=== PATIENT | male | born 1935 | race Caucasian/White ===

== ENCOUNTER 2020-02-22 17:59 | Emergency (ER) | payer MEDICARE, SELFPAY ==
[2020-02-22 18:02] VITALS: BP 179/84; PULSE 53; PULSE 65; RESP 17; TEMP 36.5; O2SAT 97; O2SAT 98; BMI 23.2
--- NOTE | 2020-02-22 18:23 | EKG12_ITS ---
Test Reason : DYSRHYTHMIA Blood Pressure : / mmHG Vent. Rate : 071 BPM Atrial Rate : 071 BPM P-R Int : 248 ms QRS Dur : 108 ms QT Int : 408 ms P-R-T Axes : 029 005 047 degrees QTc Int : 443 ms Sinus rhythm with 1st degree A-V block Otherwise normal ECG Confirmed by AZAM HERNANDEZ, ARIEL ([id number]), digital editor RUFINA EMANUEL ([id number]) on 02/27/2020 3:10:51 PM Referred By: STANLEY Confirmed By:REYNA NASCIMENTO MD
[2020-02-22] MEDS: 0.9% Normal Saline 1,000 ML 1000 ML IV (18:36)
--- NOTE | 2020-02-22 18:47 | RAD_ITS ---
STUDY: X-RAY CHEST REASON FOR EXAM: Male, 84 years old. UPPER ABDOMINAL TIGHTNESS TECHNIQUE: Single AP portable view of the chest. COMPARISON: None. FINDINGS: There are monitoring devices. The lungs are clear and expanded. There is no demonstrated pleural abnormality. Normal size heart. There are calcified mediastinal lymph nodes. Normal visualized pulmonary arteries. There is atherosclerotic calcification of the aortic arch with tortuosity. Normal visualized thoracic spine. Normal visualized ribs, clavicles, and shoulders. There is no demonstrated abnormality of the visualized soft tissue structures of the upper abdomen. RAD/Chest 1 View (Portable) IMPRESSION: Degenerative changes, as described above. No demonstrated acute cardiopulmonary process. Electronically Signed: Fabiano Mar MD at 19:34 EDT , Service support ,
[2020-02-22 18:49] LABS: Basophil# 0.06 X10^3/uL; Basophil% 0.8 % (0-1); Eosinophil# 0.07 X10^3/uL; Eosinophils% 0.9 % (0-5); Hemoglobin 13.6 g/dL (13.0-16.5); Lymphocyte % 12.7 % (19-41); Mean Corp Hgb Conc 32.4 g/dL (32-36); Mean Corpuscular Hgb 30.3 pg (27.0-32.0); Mean Corpuscular Volume 93.5 fL (80-94); Mean Platelet Vol. 11.1 fl (6.2-12.0); Monocyte# 0.68 X10^3/uL; Monocyte% 8.7 % (0-10); NRBC Flagged by Analyzer 0 % (0-5); Neutrophil # 6.02 X10^3/uL (2.7-7.7); Neutrophil % 76.5 % (47-70); Platelet Count 211 K/mm3 (150-450); RBC Distribution Width CV 12.8 % (11.6-14.6); RBC Distribution Width SD 43.9 fl (35.1-43.9); Red Blood Count 4.49 M/mm3 (4.6-6.2); White Blood Count 7.9 K/mm3 (4.4-11.0)
[2020-02-22 19:06] LABS: ALB/GLOB Ratio 1.1 RATIO (0.9-2.4); AST(SGOT) 161 U/L (15-37); Alanine Aminotransfer ALT/SGPT 102 U/L (16-61); Albumin, Serum 3.7 g/dL (3.2-5.0); Alkaline Phosphatase 83 U/L (45-117); Anion Gap 6 (5-15); BUN 18 mg/dL (7-18); BUN/Creat Ratio 20.2 RATIO (10-20); Calcium,Total 8.9 mg/dL (8.5-10.1); Chloride 107 mmol/L (98-107); Creatinine, Serum 0.89 mg/dL (0.70-1.30); EST Glomerular Filtration Rate 86 mL/min (>60); Est Glom Filt Rate - Afr Amer 104 mL/min (>60); Estimated Creatinine Clearance 61.79 ml/min; Globulin 3.4 g/dL (2.2-4.2); Glucose 167 mg/dL (74-106); Lipase 50 U/L (73-393); Potassium 3.8 mmol/L (3.5-5.1); Protein, Total 7.1 g/dL (6.4-8.2); Sodium Level 141 mmol/L (136-145)
--- NOTE | 2020-02-22 19:11 | ED.DCSUM_ITS ---
- ER Visit Summary Date of Service: 02/22/20 Chief Complaint: Abdominal pain and chest pain History of Present Illness: The patient is a 84 M who presents with lower chest and upper abdominal pain that began today. Patient states it began approximately 4:00 PM and then lasted approximately 30 to 60 minutes. Patient states he ate dinner at 5:00 PM. Patient states the pain came on after that. Patient states it feels like a tightness around his lower chest and upper abdomen. Patient admits to nausea but denies any vomiting. Patient denies any diarrhea, melena, or hematochezia. Patient denies any shortness of breath or cough. Patient denies any diaphoresis, fevers, or chills. Physical Examination: Vital signs are stable. Patient is afebrile. Patient is in no acute distress. Oral mucosa is pink and moist. Neck is supple. Trachea is midline. There is no JVD. Heart was regular rate and rhythm. Lungs are clear and equal bilaterally. Abdomen is soft. Bowel sounds are normal. There is mild upper abdominal tenderness. There is no rebound or guarding noted. 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 There are no focal motor or sensory deficits. Extremities are intact. There is no calf tenderness or edema. Test Results: EKG shows sinus rhythm with a rate of 71 with a first-degree AV block. There are no acute ST or T wave changes. Chest x-ray does not show any acute cardiopulmonary process. This was interpreted by the radiologist and reviewed by myself. CBC was normal. Comprehensive metabolic profile was normal except for slightly elevated AST of 161 and ALT of 102. Lipase was normal. Troponin was normal. Emergency Department Course and Treatment: Patient has been pain-free during his entire emergency department stay. Since the symptoms began approximately 2 hours prior to arrival, a delta troponin was obtained. Patient has a HEART score of 3. Patient has a ALISHA risk score of 1. Disposition: Care of the patient was turned over to the oncoming physician pending delta troponin results. If the delta troponin is negative., The patient will be discharged home. If the delta troponin is positive patient will be admitted. Impression: 1. Upper abdominal pain This note was generated with [employer] software. It may contain incorrect words, spelling, and punctuation that were not noted in review of the chart prior to signing ED Disposition - Plan for ED Patient: Disposition: Home or Assisted Living Diagnosis: Upper abdominal pain of unknown etiology Instructions: ED Unknown Causes of Abdominal Pain Male, ED Chest Pain Atypical Unkn Cause Referrals: Amrik Jacob MD [Primary Care Provider] - 3-5 Days
[2020-02-22 20:32] VITALS: BP 161/78; PULSE 61; RESP 16; O2SAT 96
[2020-02-22 22:38] VITALS: BP 162/78
== END 2020-02-22 22:46 | disposition home or self-care (01) ==
PROVIDERS: Emergency Provider Emergency Medicine; PCP Family Medicine
DX: R10.10 Upper abdominal pain, unspecified (principal); R07.9 Chest pain, unspecified; I10 Essential (primary) hypertension
CPT/HCPCS: 71045; 80053; 83690; 84484; 85025; 93005; 99284; A4216

== ENCOUNTER 2020-10-02 17:44 | Inpatient (IN) | payer MEDICARE, SELFPAY ==
[2020-10-02] VITALS (27 sets, daily range): BP systolic 112–180; BP diastolic 53–94; PULSE 50–69; RESP 11–17; TEMP 36.1–36.8; O2SAT 93–100; BMI 22.0; BMI 22.6
--- NOTE | 2020-10-02 17:45 | CT_ITS ---
STUDY: CT BRAIN WITHOUT CONTRAST REASON FOR EXAM: Male, 85 years old. cva RADIATION DOSAGE (If Supplied By Facility): CTDIvol = ( 44.99 ) mGy, DLP = ( 829.85 ) mGycm TECHNIQUE: Transaxial CT imaging of the brain was performed without administration of intravenous contrast material. Individualized dose optimization techniques were used for this CT. COMPARISON: None. FINDINGS: Normal soft tissue structures. Normal calvarium. There is mild cerebral atrophy with widening of the extra-axial spaces and ventricular dilatation. Tiny perivascular space noted in the right frontal lobe/periventricular junction. Normal white matter tracts of the cerebral hemispheres. Normal basal ganglia and thalami. Normal brainstem. Normal cerebellum. There is no intracranial hemorrhage. There are no findings of an acute ischemic infarction. Normal visualized paranasal sinuses. CT/STROKE Brain/Head without Cont IMPRESSION: Chronic involutional changes of the brain. N.B. : The above information has been verbally conveyed by Osiel Feliz MD to FRANCOISE VELIZ MD, on 10/02/2020 18:09:25 (ET). Electronically Signed: Osiel Feliz MD at 18:10 EST , Service support ,
--- NOTE | 2020-10-02 17:47 | CM.ED ---
Social Work Responding to stroke alert. Support provided to spouse. Will continue to follow as needed. Cj JENSEN, VALENTINA
--- NOTE | 2020-10-02 17:48 | CT_ITS ---
STUDY: CTA HEAD AND NECK WITH CONTRAST REASON FOR EXAM: Male, 85 years old. CVA, left sided weakness. RADIATION DOSAGE (If Supplied By Facility): CTDIvol = ( 23.37 ) mGy, DLP = ( 721.75 ) mGycm TECHNIQUE: CT angiography was performed with a multi-detector CT scanner. Data acquisition was obtained from the skull base through the vertex following intravenous administration of IV 100mL [id number]-[id number]. MIP images were reconstructed from the axial data set. Post-processing of the angiographic images was performed, with multiplanar reformation and 3D reconstruction. Individualized dose optimization techniques were used for this CT. COMPARISON: Noncontrast head CT dated October 02, 2020 FINDINGS: Normal bilateral petrous carotid arteries. There is calcified plaque formation of the right cavernous carotid artery, without a cross-sectional luminal stenosis. There is calcified plaque formation of the left cavernous carotid artery, without a cross-sectional luminal stenosis. Normal right A1 segments of the anterior cerebral artery. Normal left A1 segments of the anterior cerebral artery. Normal intact anterior communicating artery (ACOM). Normal bilateral A2 segments of the anterior cerebral arteries. Normal right M1 and M2 segments of the middle cerebral arteries, with a normal M1 bifurcation. Normal left M1 and M2 segments of the middle cerebral arteries, with a normal M1 bifurcation. Normal right posterior communicating artery (PCOM). Normal left posterior communicating artery (PCOM). Normal bilateral vertebral arteries. Normal basilar artery with a normal basilar bifurcation. The visualized bilateral superior cerebellar (SCA) arteries are normal. Normal bilateral P1, P2 and visualized P3 segments of the posterior cerebral arteries. There is no demonstrated aneurysm of the [place]. There is no demonstrated abnormality of the visualized brain. AORTIC ARCH: There is atherosclerotic calcific plaque formation of the aortic arch and great vessels arising from the aortic arch, without a hemodynamically significant stenosis. There is a normal origin of the brachiocephalic, left common carotid, and left subclavian arteries. Normal origins of the brachiocephalic, left common carotid, and left subclavian arteries. RIGHT CAROTID ARTERIES: Normal right common carotid artery (CCA). There is mild atherosclerotic plaque formation with minimal narrowing of the right carotid bulb. Normal origin of the right internal carotid (ICA) artery without a hemodynamically significant stenosis. Normal visualized cervical portion of the right internal carotid artery. Normal origin of the right external carotid artery (ECA). LEFT CAROTID ARTERIES: Normal left common carotid artery (CCA). There is mild atherosclerotic plaque formation with minimal narrowing of the left carotid bulb. There is mild atherosclerotic plaque formation of the origin of the left internal carotid artery with less than 25 % cross sectional diameter stenosis. Normal visualized cervical portion of the left internal carotid artery. Normal origin of the left external carotid artery (ECA). VERTEBRAL ARTERIES: Normal bilateral vertebral arteries. CT/STROKE CTA Head AND Neck W/Con IMPRESSION: 1. Minimal atherosclerotic plaque of the bilateral cavernous ICAs 2. No hemodynamically significant stenosis or occlusion of the intracranial major arteries 3. Mild atherosclerotic plaque of the carotid bulbs and left ICA, but no hemodynamically significant stenosis or occlusion of the neck carotid arteries. N.B. : The above information has been verbally conveyed by Osiel Feliz MD to FRANCOISE VELIZ MD, on 10/02/2020 18:24:54 (ET). Electronically Signed: Osiel Feliz MD at 18:25 EST , Service support ,
[2020-10-02] MEDS: Labetalol (Prefilled) 20 MG/4 ML IV (18:05)
--- NOTE | 2020-10-02 18:20 | ED.VIS.GEN ---
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 His last known well was 3:00 PM. This was prior to taking a nap. His went to wake him up and she noticed that he was not making much sense with talking. He was not moving his left arm or leg very well. Prehospital stroke alert was called when EMS arrived. He has no history of strokes or TIAs. No history of A. fib. Is not on any anticoagulation. Upon arrival patient rest with his eyes closed and does arouse to some minimal stimuli. He does have difficulty moving his left arm and has decreased sensation of it. He does seem to be more focused on the right side with his posture, head and eyes. He does have a facial droop on the left side. Patient is normally alert, oriented and very independent. Of note patient did have 2 injections into his back with cortisone shots yesterday. Past Medical History - Allergies and Home Meds Allergies/Adverse Reactions: Allergies lactic acid [From Lac-Hydrin] Allergy (Verified 10/02/20 17:52) Rash PT UNSURE OF REACTION Penicillins Allergy (Verified 10/02/20 17:52) Unknown Prior records reviewed: Yes Smoking Status: Former smoker - Family History Maternal Family History: Reports: No pertinent history Paternal Family History: Reports: No pertinent history Review of Systems All systems negative except as indicated General: Denies: Chills, Fever Eyes: Denies: Visual changes - bilaterally, Diplopia Cardiovascular: Denies: Chest pain Respiratory: Denies: Dyspnea, Cough Gastrointestinal: Denies: Abdominal pain, Nausea, Vomiting Musculoskeletal: Denies: Neck pain, Extremity Pain Neurological: Reports: Weakness, Numbness. Denies: Headache Physical Exam Vital Signs/Narrative: Vital Signs Temp Pulse Resp BP Pulse Ox 10/02/20 18:12 172/91 H 10/02/20 17:58 97 F L 64 14 180/94 H 94 10/02/20 17:57 99 10/02/20 17:48 69 17 172/91 H 94 Inital Vital Signs reviewed: Yes General: Well nourished, Well developed, No Acute Distress Head: Normocephalic, Atraumatic Eyes: Perrl, EOMI, - - Eyes seem deviated to the right can overcome this. Denies any visual loss. Good peripheral field of gaze. ENT: Moist mucous membranes, No rhinorrhea Neck: Supple, Nontender Cardiovascular: Regular rate, Regular rhythm, No murmurs Respiratory: No distress, CTA bilaterally, Chest nontender Abdomen: Soft, Nontender, Nondistended, Normal bowel sounds Back: Nontender, Normal Inspection Extremities: Nontender, No edema Skin: Normal color, No rash Neurological: Alert, Oriented x3, Left side facial droop, - - Initial NIH score of 8 as he cannot feel me touch his left arm. He is able to partially move the left arm. Does have a left sided facial droop. He does have dysarthria. He also arouses to minor stimulation. Psychological: Normal affect, Normal Mood Diagnostic/Tx/Re-eval Chest X-Ray - ED: - - Single view portable chest x-ray interpreted myself. Clear lung bustamante bilaterally. No effusion noted. Normal cardiac silhouette. Normal mediastinum. No acute cardiopulmonary process. Agree with radiologist interpretation. - EKG Initial EKG Interpretation: - - Rate of 60 bpm and normal sinus rhythm. He has a prolonged OR interval of 254 with first-degree AV block. Otherwise normal intervals. Normal axis. No ST elevations or depressions. No T wave abnormalities. - Medical Decision Making Patient presents to the ED for prehospital stroke alert. He has a NIH score of [address] scans obtained which did not reveal an acute abnormality. No large vessel occlusion. No signs of hemorrhage. [facility] teleneurology did be meant and evaluate the patient as well. We are both in agreement that he is a TPA candidate. Did have some high blood pressure and did require dose of labetalol to make him a candidate for the TPA. Risks associated giving TPA were discussed with the patient and . They understand and accept these risk. This was then given. Patient CT scan did not show any evidence of large vessel occlusion. His NIH score has actually improved after receiving the TPA. His got down to an NIH score of 2. His lab work did not reveal a significant acute abnormality. Will bring him into the hospital for further evaluation and management. Patient's at bedside updated on everything as well as the patient. They are agreeable with this plan. - Critical Care Time Critical care time (excluding procedures): 30-74 minutes, Discussing w/Patient &/or Family/Lsw, Discussing w/Consultants, Arranging Admission or Transfer, Performing Direct Patient Care at Bedside ED Disposition - Plan for ED Patient: Disposition: Acute Care Hospital [facility] Diagnosis: Acute ischemic stroke, Dysarthria, Facial droop, Left arm weakness
[2020-10-02 18:24] LABS: Absolute Lymphocyte Count 1.38 X10^3/uL (0.83-4.51); Absolute Neutrophil Count 8.2 X10^3/uL (2.0-7.7); Basophil# 0.04 X10^3/uL; Basophil% 0.4 % (0-1); Eosinophil# 0.02 X10^3/uL; Eosinophils% 0.2 % (0-5); Hematocrit 37.9 % (40-54); Hemoglobin 12.7 g/dL (13.0-16.5); Lymphocyte # 1.38 X10^3/ul (4.0); Mean Corp Hgb Conc 33.5 g/dL (32-36); Mean Corpuscular Hgb 30.7 pg (27.0-32.0); Mean Corpuscular Volume 91.5 fL (80-94); Mean Platelet Vol. 10.6 fl (6.2-12.0); Monocyte# 0.89 X10^3/uL; Monocyte% 8.4 % (0-10); NRBC Flagged by Analyzer 0 % (0-5); Neutrophil # 8.22 X10^3/uL (2.7-7.7); Neutrophil % 77.6 % (47-70); Platelet Count 223 K/mm3 (150-450); RBC Distribution Width CV 12.6 % (11.6-14.6); RBC Distribution Width SD 41.6 fl (35.1-43.9); Red Blood Count 4.14 M/mm3 (4.6-6.2); White Blood Count 10.6 K/mm3 (4.4-11.0)
[2020-10-02 18:31] LABS: International Normalized Ratio 1.1; Prothrombin Time (Protime)PT. 13.7 SECONDS (11.7-14.9)
[2020-10-02 18:32] LABS: Partial Thromboplast Time 27.4 Seconds (24.1-36.2)
[2020-10-02 18:42] LABS: Anion Gap 3 (5-15); BUN 19 mg/dL (7-18); BUN/Creat Ratio 24.9 RATIO (10-20); Calcium,Total 8.1 mg/dL (8.5-10.1); Chloride 102 mmol/L (98-107); Creatinine, Serum 0.76 mg/dL (0.70-1.30); EST Glomerular Filtration Rate 103 mL/min (>60); Est Glom Filt Rate - Afr Amer 125 mL/min (>60); Glucose 128 mg/dL (74-106); Potassium 4.2 mmol/L (3.5-5.1); Sodium Level 134 mmol/L (136-145)
[2020-10-02] MEDS: 0.9% Normal Saline 1,000 ML 100 ML IV (18:48)
--- NOTE | 2020-10-02 18:56 | RAD_ITS ---
STUDY: X-RAY CHEST REASON FOR EXAM: Male, 85 years old. NEURO DEFICIT, ACUTE. SUSPECTED STROKE TECHNIQUE: Frontal view COMPARISON: 02/22/2020 FINDINGS: The lungs are clear and expanded. There is no demonstrated pleural abnormality. Normal size heart. Normal mediastinum and candelaria. Normal visualized pulmonary arteries. Normal visualized aortic arch and descending thoracic aorta. Normal visualized thoracic spine. Normal visualized ribs, clavicles, and shoulders. There is no demonstrated abnormality of the visualized soft tissue structures of the upper abdomen. RAD/Chest 1 View IMPRESSION: Normal x-ray examination of the chest. Electronically Signed: Dom Davies DO at 19:54 EST Tel [phone], Service support ,
--- NOTE | 2020-10-02 19:44 | PCS.PANDOC ---
PANDEMIC DOCUMENTATION INITIATED: Date: 10/02/2020 Time: 1950
--- NOTE | 2020-10-02 19:47 | HP.PCM_ITS ---
Problem List (1) Acute ischemic stroke Status: Acute (2) Chronic back pain Status: Chronic (3) Hypertension Status: Chronic History of Present Illness Date of Admission: 10/02/20 Chief Complaint: Strokelike symptoms. The patient is a 85 year old M with past medical history as mentioned above presented to the emergency room because of left leg and arm weakness, garbled speech and facial droop. At this time, patient is sleepy and lethargic as he received IV Phenergan before TPA. Patient's was at the bedside and she provides the history. Patient's stated that he was sleeping and around 3 PM, she went to wake him up and she noted that his speech is not making sense and having difficulty moving his left arm and left leg. She reported that also he had facial droop on the left side of his face. Upon arrival to the emergency department, patient's eyes was closed and he was lethargic but arousable to minimal stimuli. mentioned that he received cortisone injections in his back yesterday for chronic back pain. He had a history of hypertension which has been under control with lisinopril. He has a chronic back pain issues and he has been receiving treatment with his doctor. Upon arrival to ED, NIH stroke scale was 8. He was afebrile, blood pressure was elevated, other vital signs were stable. Routine blood work was unremarkable. Pro time and INR were normal. EKG revealed normal sinus rhythm with first-degree AV block, MN interval was 254 ms, no acute ischemic changes. Troponin was negative. Stat CT scan brain without contrast done and showed no acute hemorrhage. [facility] teleneurology consulted and recommended to give TPA. tPA was given and his NIH stroke scale improved. CTA of the neck showed no hemodynamically significant v ascular disease or stenosis. Chest x-ray showed no acute findings. He is being admitted for acute stroke status post TPA. Past Medical History Past Medical History (Chronic Problems): Chronic Problems Chronic back pain (Chronic) Hypertension (Chronic) Allergies lactic acid [From Lac-Hydrin] Allergy (Verified 10/02/20 17:52) Rash PT UNSURE OF REACTION Penicillins Allergy (Verified 10/02/20 17:52) Unknown Home Medications: Ambulatory Orders Medication Instructions Recorded Alfuzosin HCl [Uroxatral] 10 mg PO DAILY 10/02/20 Cholecalciferol (Vitamin D3) 50 mcg PO DAILY 10/02/20 [Vitamin D3] Cyclobenzaprine HCl 10 mg PO BID 10/02/20 Diphenhydramine HCl [Allergy] 25 mg PO DAILY PRN PRN 10/02/20 Dutasteride 0.5 mg PO DAILY 10/02/20 Lisinopril [Zestril] 10 mg PO DAILY 10/02/20 Magnesium 500 mg PO DAILY 10/02/20 Meloxicam 15 mg PO DAILY 10/02/20 Multivitamin/Iron/Folic Acid 1 ea PO DAILY 10/02/20 [Centrum Adults Tablet] Surgical History: - - Right shoulder repair. Back surgery. Psychiatric History: No pertinent psych hx Lives: Spouse/ Significant Other Smoking Status: Former smoker Alcohol: None Drugs: None - *Family History Maternal History Items: No pertinent history Paternal History Items: No pertinent history Review of Systems Constitutional: Denies: Anorexia, Chills, Fever, Weakness Eyes: Denies: Blurred vision, Double vision, Drainage, Redness HEENT: Denies: Difficulty Hearing, Ear Pain, Eye Pain, Nasal Congestion, Sore Throat Cardiovascular: Denies: Chest Pain, Chest Pressure, Heaviness, Palpitations, Syncope Respiratory: Denies: Cough, Pleuritic Pain, Shortness of Breath, Sputum production, Wheezing Gastrointestinal: Denies: Abdominal Pain, Constipation, Diarrhea, Nausea, Vomiting Genitourinary: Denies: Dysuria, Frequency, Hematuria Musculoskeletal: Denies: Arm Pain, Foot Pain Skin: Denies: Dryness, Rash Neurological: Reports: Change in Speech, Slurred speech, Focal weakness. Denies: Balance problems, Blurred vision, Double vision, Headaches, Numbness Psychiatric: Denies: Anxiety, Depression Endocrine: Denies: Change in Body Habitus, Polydipsia, Polyuria VTE Information - Inpt Only VTE Present on Admission: No VTE Mechan Device Prophylaxis: None VTE Pharm Prophylaxis ordered?: No Patient Problems: Active and Suspected Problems Acute ischemic stroke (Acute) - Physical Exam Vitals/I&O's: Vital Signs Temp Pulse Resp BP Pulse Ox 98.3 F 61 11 L 153/71 H 94 10/02/20 19:34 10/02/20 19:34 10/02/20 19:34 10/02/20 19:34 10/02/20 19:34 Oxygen Delivery Method Room Air Weight: 162 lb 7.691 oz Body Mass Index (BMI) 22.0 Finger Stick Blood Glucose 114 Intake and Output for Last 24 Hours 09/30/20 10/01/20 10/02/20 23:59 23:59 23:59 Intake Total 59.5 / 59.5 Balance 59.5 / 59.5 General: Alert, Cooperative, No apparent distress, - - Sleepy but arousable with minimal stimuli. HEENT: Atraumatic, PERRLA, EOMI, Normocephalic Oral: Moist Mucosa, No Gingival or Mucosal Lesions/ Ulcerations Neck: Supple, No JVD, Negative Carotid Bruits, Trachea Midline, Thyroid Normal Size and Texture Lungs: Clear to auscultation, Normal air movement, No rhonchi, No wheeze, No rales, Diminished Cardiovascular: Regular rate, Regular Rhythm, Normal S1, Normal S2, No murmurs, PMI Normal Abdomen: Bowel Sounds Present, Soft, Non Tender, Non-Distended, No Hepato- splenomegaly Extremities: No clubbing, No cyanosis, No edema Skin: No rashes, No breakdown Lymphatic: No Cervical, Supraclavicular, or Inguinal Adenopathy Neurological: - - Minimal left facial droop. Power is almost 5 x 5 on the left side, it is 5 x 5 on the right side. Psych/Mental Status: Appropriate, Flat Affect Microbiology Past 72 Hours 10/02/20 18:20 Mucosa - Nose SARS-CoV-2 Antigen (Rapid) - Final Laboratory Results 10/02/20 18:00: WBC 10.6, RBC 4.14 L, Hgb 12.7 L, Hct 37.9 L, MCV 91.5, MCH 30.7, MCHC 33.5, RDW Std Deviation 41.6, RDW Coeff of Rodney 12.6, Plt Count 223, MPV 10.6, Immature Gran % (Auto) 0.400, Neut % (Auto) 77.6 H, Lymph % (Auto) 13.0 L, Stafford % (Auto) 8.4, Eos % (Auto) 0.2, Baso % (Auto) 0.4, Absolute Neuts (auto) 8.2 H, Absolute Lymphs (auto) 1.38, Nucleated RBC % 0 10/02/20 18:00: PT 13.7, INR 1.1, APTT 27.4 10/02/20 18:00: Sodium 134 L, Potassium 4.2, Chloride 102, Carbon Dioxide 29.0, Anion Gap 3 L, BUN 19 H, Creatinine 0.76, Estim Creat Clear Calc 56.30, Est GFR (MDRD) Af Amer 125, Est GFR (MDRD) Non-Af 103, BUN/Creatinine Ratio 24.9 H, Glucose 128 H, Calcium 8.1 L, Troponin I < 0.015 Clinical Impression(s) from Imaging Studies Brain CT 10/02/20 17:45 IMPRESSION: Chronic involutional changes of the brain. N.B. : The above information has been verbally conveyed by Osiel Feliz MD to FRANCOISE VELIZ MD, on 10/02/2020 18:09:25 (ET). Electronically Signed: Osiel Feliz MD at 18:10 EST , Service support , ADDENDUM: 10/02/20 1817 IMPRESSION: Chronic involutional changes of the brain. N.B. : The above information has been verbally conveyed by Osiel Feliz MD to FRANCOISE VELIZ MD, on 10/02/2020 18:09:25 (ET). Electronically Signed: Osiel Feliz MD at 18:10 EST , Service support , Head/Neck CTA 10/02/20 17:48 IMPRESSION: 1. Minimal atherosclerotic plaque of the bilateral cavernous ICAs 2. No hemodynamically significant stenosis or occlusion of the intracranial major arteries 3. Mild atherosclerotic plaque of the carotid bulbs and left ICA, but no hemodynamically significant stenosis or occlusion of the neck carotid arteries. N.B. : The above information has been verbally conveyed by Osiel Feliz MD to FRANCOISE VELIZ MD, on 10/02/2020 18:24:54 (ET). Electronically Signed: Osiel Feliz MD at 18:25 EST , Service support , ADDENDUM: 10/02/20 1832 IMPRESSION: 1. Minimal atherosclerotic plaque of the bilateral cavernous ICAs 2. No hemodynamically significant stenosis or occlusion of the intracranial major arteries 3. Mild atherosclerotic plaque of the carotid bulbs and left ICA, but no hemodynamically significant stenosis or occlusion of the neck carotid arteries. N.B. : The above information has been verbally conveyed by Osiel Feliz MD to FRANCOISE VELIZ MD, on 10/02/2020 18:24:54 (ET). Electronically Signed: Osiel Feliz MD at 18:25 EST , Service support , Current Medications Acetaminophen (Acetaminophen 325 Mg Tablet) 650 mg PO .X1 PRN PRN Reason: Temp > 99.6 F Diphenhydramine HCl (Diphenhydramine 50 Mg/Ml Syringe) 50 mg IV .X1 PRN PRN Reason: Allergic Reaction Stop: 10/04/20 17:56 Sodium Chloride () 1,000 mls @ 100 mls/hr IV .Q10H DANNA Last Admin: 10/02/20 18:48 Dose: 100 mls/hr Documented by: Famotidine 20 mg/ Sodium (Chloride) 10 mls @ 300 mls/hr IV .X1 PRN PRN Reason: Allergic Reaction Stop: 10/04/20 17:56 Nicardipine/Dextrose (Cardene-Dex 20 Mg/200 Ml Soln) 20 mg in 200 mls @ 50 mls/hr IV .Q4H PRN; Protocol PRN Reason: See Instructions Labetalol HCl (Labetalol (Prefilled) 20 Mg/4 Ml) 20 mg IV X1 PRN PRN Reason: BLOOD PRESSURE Last Admin: 10/02/20 18:05 Dose: 20 mg Documented by: Labetalol HCl (Labetalol (Prefilled) 20 Mg/4 Ml) 20 mg IV X1 PRN; Protocol PRN Reason: BLOOD PRESSURE Methylprednisolone (Methylprednisolone 125 Mg/2 Ml Vial) 125 mg IV .X1 PRN PRN Reason: Allergic Reaction Stop: 10/04/20 17:56 Sodium Chloride (0.9% Saline Lock 10 Ml Syringe) 10 - 40 ml IV UD PRN PRN Reason: SALINE FLUSH Assessment/Plan All Active Problems Acute ischemic stroke (Acute) This is an 85 years old male patient presented to the emergency room because of slurred speech, left arm and left leg weakness as well as left facial droop, found to have NIH stroke scale of 8, stat CT scan brain showed no acute hemorrhage and he was a candidate for TPA which he received and he is being admitted for acute ischemic stroke for evaluation and treatment. #1 acute stroke: Probably ischemic, status post TPA. Initially, blood pressure was elevated, patient received labetalol and nicardipine. CT scan brain showed no acute findings. CTA of the head and neck showed no significant vascular stenosis or occlusion. EKG reviewed, showed normal sinus rhythm with first- degree AV block. Chest x-ray was unremarkable. Plan: Admit to ICU, critical care monitoring, complete bedrest, insert Thibodeaux catheter, check lipid profile, hemoglobin A1c, TPA protocol, start Lipitor, 2D echocardiogram, critical care consult, repeat CBC and CMP tomorrow morning as well as pro time and INR, MRI brain 24 hours after TPA, plan to reconsult [facility] teleneurology after results of MRI brain, PT OT evaluation and treatment when appropriate. #2 hypertension: Initially, blood pressure was elevated, received labetalol and nicardipine. Currently blood pressure is around 150s to 160s systolic. Target blood pressure per protocol, continue lisinopril. #3 chronic back pain: Tylenol as needed. #4 DVT prophylaxis: Status post TPA. This note was generated with [employer] dictation software. It may contain incorrect words, spelling, and punctuation that were not noted in checking the note before signing. Inpatient E&M: 88823 Init Hosp L3
--- NOTE | 2020-10-02 19:51 | ED.RN ---
report called to Maeve in ICU. All questions answered.
--- NOTE | 2020-10-02 20:36 | MRI_ITS ---
STUDY: MRI BRAIN WITHOUT CONTRAST REASON FOR EXAM: Male, 85 years old. 24 HRS POST TPA, L SIDE FLACCID TECHNIQUE: Standardized multiplanar fat and water weighted pulse sequences were obtained. COMPARISON: Head CT and CTA dated October 02, 2020. Head CT dated October 03, 2020. FINDINGS: A small to moderate size acute infarct is present in the anterior half of the right thalamic lobe. There is also acute infarction of the medial aspect of the right occipital lobe and temporal lobes. There is mild cerebral atrophy with widening of the extra-axial spaces and ventricular dilatation. There are a limited number of small white matter hyperintensities, distributed throughout the deep white matter tracts of the cerebral hemispheres, consistent with mild chronic white matter ischemic changes. Normal T2* images of the brain without demonstrated susceptibility artifact. There is no demonstrated hemosiderin stain. Normal bilateral basal ganglia. Normal thalami. There is no extra-axial fluid accumulation. Normal flow voids within the major intracranial circulation suggesting patency by spin echo criteria. Normal sella turcica, pituitary gland, infundibular stalk, optic chiasm and hypothalamus. Normal tectal plate and pineal gland. Normal midbrain, brian and medulla. Normal cerebellum. Normal basal cisterns. Normal bilateral temporal bones. Normal bilateral internal auditory canals. No demonstrated orbital abnormality, within the constraints of a routine brain study. Normal visualized paranasal sinuses. Normal calvarium and skull base. Normal visualized soft tissue structures. Normal visualized upper cervical spine. MRI/Brain without Contrast IMPRESSION: 1. Acute infarcts in the medial aspects of the right temporal and occipital lobes 2. Small to moderate size acute infarct of the right thalamic lobe. Electronically Signed: Osiel Feliz MD at 22:09 EST , Service support ,
--- NOTE | 2020-10-02 20:36 | ECHOD_ITS ---
Reason For Study: TIA/CVA Procedure This was a 2D Doppler, Color Flow transthoracic echocardiogram. The exam was of adequate technical quality. Exam performed portable in ICU/CCU. Left Ventricle Normal LV size. Left ventricular systolic function is normal. The estimated ejection fraction is 55 %. Diastolic function is indeterminate. No regional wall motion abnormalities noted. Right Ventricle Normal RV size. Normal systolic function. Atria Normal left atrium. Normal right atrium. No doppler evidence for ASD. Bubble contrast study negative for right to left interatrial shunt. Mitral Valve There is moderate mitral annular calcification. Extension of the mitral annular calcification onto the base of the posterior mitral valve leaflet. Trivial mitral valve insufficiency. Tricuspid Valve Normal tricuspid valve. Mild tricuspid valve insufficiency. Right ventricular systolic pressure estimated to be 22 mmHg. Aortic Valve Trisinus/trileaflet aortic valve. Mild diffuse aortic valve thickening. Mild focal aortic valve calcification. Trivial aortic valve insufficiency. Pulmonic Valve The pulmonic valve is not well visualized. Trivial pulmonic valve insufficiency. Great Vessels Normal sized aortic root. Pericardium/Pleural No pericardial effusion. Medication Performed a rapid injection of agitated mix of 9 cc saline and 1cc air to assess for atrial septal defect. MMode/2D Measurements & Calculations LVIDd: 4.7 cm IVSd: 0.96 cm Ao root diam: 3.3 cm LVIDs: 3.7 cm LVPWd: 0.94 cm RVDd: 4.1 cm FS: 22.3 % LAV(MOD-bp): 47.9 ml LVAd ap4: 29.2 cm2 SV(MOD-sp4): 46.4 ml LAV(MOD-bp) Indexed: 25.3 ml/m2 EDV(MOD-sp4): 91.2 ml LAV(MOD-sp2): 56.0 ml EDV(sp4-el): 92.9 ml LAV(MOD-sp4): 33.5 ml LVAs ap4: 18.7 cm2 ESV(MOD-sp4): 44.7 ml ESV(sp4-el): 45.4 ml EF(MOD-sp4): 50.9 % EF(sp4-el): 51.1 % SV(sp4-el): 47.5 ml LA A4 area: 13.6 cm2 LA dimension(2D): 3.4 cm RA A4 area: 16.4 cm2 Doppler Measurements & Calculations MV E max russ: 76.4 cm/sec Lat Peak E' Russ: 7.6 cm/sec Med Peak E' Russ: 5.4 cm/sec MV A max russ: 90.4 cm/sec E/E' lat: 10.1 E/E' med: 14.1 MV E/A: 0.85 Ao V2 max: 121.0 cm/sec LV V1 max: 88.7 cm/sec PA V2 max: 61.5 cm/sec Ao max P.9 mmHg LV V1 max P.1 mmHg Ao V2 mean: 86.8 cm/sec Ao mean P.2 mmHg Ao V2 VTI: 28.9 cm TR max russ: 220.0 cm/sec TR max P.4 mmHg Interpretation Summary Left ventricular systolic function is normal. The estimated ejection fraction is 55 %. There is moderate mitral annular calcification. Extension of the mitral annular calcification onto the base of the posterior mitral valve leaflet. Trivial mitral valve insufficiency. Mild tricuspid valve insufficiency. Mild diffuse aortic valve thickening. Mild focal aortic valve calcification. Trivial aortic valve insufficiency. Trivial pulmonic valve insufficiency. Right ventricular systolic pressure estimated to be 22 mmHg. Diastolic function is indeterminate. Bubble contrast study negative for right to left interatrial shunt. Ordering Physician: Law Galdamez Referring Physician: Amrik Jacob Performed By: Petra Mathews RDCS, RVT
[2020-10-02 21:03] LABS: Cholesterol 158 mg/dL (200); High Density Lipoprotein 44 mg/dL; Triglycerides 81 mg/dL; Very Low Density Lipoprotein 16 mg/dL (5-40)
[2020-10-02 21:09] LABS: Hemoglobin A1c 6.6 % (3.8-5.6)
[2020-10-02] MEDS: 0.9% Normal Saline 1,000 ML 75 ML IV (22:17)
[2020-10-03] VITALS (27 sets, daily range): BP systolic 100–146; BP diastolic 49–100; PULSE 38–61; RESP 9–24; TEMP 36.6–37.4; O2SAT 92–98; BMI 22.6
[2020-10-03 04:19] LABS: Absolute Lymphocyte Count 1.24 X10^3/uL (0.83-4.51); Absolute Neutrophil Count 8.2 X10^3/uL (2.0-7.7); Basophil# 0.04 X10^3/uL; Basophil% 0.4 % (0-1); Eosinophil# 0.01 X10^3/uL; Eosinophils% 0.1 % (0-5); Hematocrit 37.3 % (40-54); Hemoglobin 12.3 g/dL (13.0-16.5); Lymphocyte # 1.24 X10^3/ul (4.0); Lymphocyte % 12.1 % (19-41); Mean Corpuscular Hgb 30.7 pg (27.0-32.0); Mean Platelet Vol. 10.7 fl (6.2-12.0); Monocyte# 0.75 X10^3/uL; Monocyte% 7.3 % (0-10); NRBC Flagged by Analyzer 0 % (0-5); Neutrophil % 79.7 % (47-70); Platelet Count 207 K/mm3 (150-450); RBC Distribution Width CV 12.8 % (11.6-14.6); Red Blood Count 4.01 M/mm3 (4.6-6.2); White Blood Count 10.3 K/mm3 (4.4-11.0)
[2020-10-03 04:36] LABS: Anion Gap 5 (5-15); BUN 16 mg/dL (7-18); BUN/Creat Ratio 20.7 RATIO (10-20); Calcium,Total 8.2 mg/dL (8.5-10.1); Chloride 109 mmol/L (98-107); Creatinine, Serum 0.77 mg/dL (0.70-1.30); EST Glomerular Filtration Rate 102 mL/min (>60); Est Glom Filt Rate - Afr Amer 123 mL/min (>60); Estimated Creatinine Clearance 53.17 ml/min; Glucose 115 mg/dL (74-106); Phosphorus 4.2 mg/dL (2.5-4.9); Potassium 4.3 mmol/L (3.5-5.1); Sodium Level 141 mmol/L (136-145)
--- NOTE | 2020-10-03 06:35 | PCM.CON.CC ---
Reason for Consult Date of Consultation: 10/03/20 Reason for Consultation: Acute CVA status post TPA History of Present Illness: The patient is an 85-year-old male, with a history as outlined below, who presented to the emergency department on October 02 with complaints of left-sided weakness and slurred speech. The patient has no prior history of CVA. He does have a history of hypertension, treated with lisinopril on an outpatient basis. On presentation to the emergency department, the patient was noted to be afebrile but was hypertensive with a blood pressure of 180/94 mmHg. He was maintaining appropriate oxygen saturations on room air. Laboratory evaluation revealed no evidence of a leukocytosis. Coagulation profile was within normal limits. Chemistry profile was largely unremarkable. Troponin was negative. CT head revealed chronic involutional changes of the brain. CTA head and neck showed no evidence of a large vessel occlusion. Consultation was obtained from neurology and TPA was administered at 1812 hrs. the patient was subsequently admitted to the medical intensive care unit for further management. NIH score was noted to be 4 this morning. Past Medical History Past Medical History (Chronic Problems): Chronic Problems Chronic back pain (Chronic) Hypertension (Chronic) Allergies lactic acid [From Lac-Hydrin] Allergy (Verified 10/02/20 17:52) Rash PT UNSURE OF REACTION Penicillins Allergy (Verified 10/02/20 17:52) Unknown Home Medications: Ambulatory Orders Medication Instructions Recorded Alfuzosin HCl [Uroxatral] 10 mg PO DAILY 10/02/20 Cholecalciferol (Vitamin D3) 50 mcg PO DAILY 10/02/20 [Vitamin D3] Cyclobenzaprine HCl 10 mg PO BID 10/02/20 Diphenhydramine HCl [Allergy] 25 mg PO DAILY PRN PRN 10/02/20 Dutasteride 0.5 mg PO DAILY 10/02/20 Lisinopril [Zestril] 10 mg PO DAILY 10/02/20 Magnesium 500 mg PO DAILY 10/02/20 Meloxicam 15 mg PO DAILY 10/02/20 Multivitamin/Iron/Folic Acid 1 ea PO DAILY 10/02/20 [Centrum Adults Tablet] Surgical History: - - Right shoulder repair. Back surgery. Psychiatric History: No pertinent psych hx Lives: Spouse/ Significant Other Smoking Status: Never smoker Tobacco Use: Cigarettes Alcohol: None Drugs: None - *Family History Maternal History Items: No pertinent history Paternal History Items: No pertinent history Review of Systems Constitutional: Denies: Chills, Fever Eyes: Denies: Blurred vision, Double vision HEENT: Denies: Head Aches, Sinus Congestion, Sinus Drainage Cardiovascular: Denies: Chest Pain, Palpitations Respiratory: Denies: Cough, Shortness of breath at rest, Sputum production Gastrointestinal: Denies: Abdominal Pain, Nausea, Vomiting Genitourinary: Denies: Dysuria Musculoskeletal: Reports: Back Pain Skin: Denies: Rash, Wounds Neurological: Reports: Change in Speech, Slurred speech, Confusion Psychiatric: Denies: Anxiety, Depression, Homicidal Ideations, Suicidal Ideations Hematologic/ Lymphatic: Denies: Easy Bruising, Easy Bleeding Patient Problems: Active and Suspected Problems Dysarthria (Acute) Facial droop (Acute) Left arm weakness (Acute) Acute ischemic stroke (Acute) Objective: The patient's most recent lab work, culture data and imaging studies have all been personally reviewed. - Physical Exam Vitals/I&O's: Vital Signs Temp Pulse Resp BP Pulse Ox 98.2 F 50 L 15 116/66 95 10/03/20 06:00 10/03/20 06:00 10/03/20 06:00 10/03/20 06:00 10/03/20 06:00 Oxygen Delivery Method Room Air Weight: 153 lb 14.122 oz Body Mass Index (BMI) 22.6 Finger Stick Blood Glucose 114 Intake and Output for Last 24 Hours 10/01/20 10/02/20 10/03/20 23:59 23:59 23:59 Intake Total 159.5 / 159.5 Output Total 400 / 900 916 / 916 Balance -240.5 / -740.5 -916 / -916 General: Alert, No apparent distress, - - Will arouse transiently and answer questions, only to follow back to sleep HEENT: Atraumatic, Normocephalic Oral: No Gingival or Mucosal Lesions/ Ulcerations Neck: Supple, No Nodes, Trachea Midline Lungs: Normal air movement Cardiovascular: Regular rate, Regular Rhythm, Normal S1, Normal S2, No murmurs Abdomen: Bowel Sounds Present, Soft, Non Tender Extremities: No clubbing, No cyanosis, No edema Skin: No breakdown Musculoskeletal: No Muscle Wasting Lymphatic: No Cervical, Supraclavicular, or Inguinal Adenopathy Neurological: Cranial nerves II-XII grossly intact, Facial Droop Psych/Mental Status: Flat Affect Labs (Last 48 Hours) 10/02/20 10/02/20 10/02/20 18:00 18:00 18:00 WBC 10.6 RBC 4.14 L Hgb 12.7 L Hct 37.9 L MCV 91.5 MCH 30.7 MCHC 33.5 RDW Std Deviation 41.6 RDW Coeff of Rodney 12.6 Plt Count 223 MPV 10.6 Immature Gran % (Auto) 0.400 Neut % (Auto) 77.6 H Lymph % (Auto) 13.0 L [place] % (Auto) 8.4 Eos % (Auto) 0.2 Baso % (Auto) 0.4 Absolute Neuts (auto) 8.2 H Absolute Lymphs (auto) 1.38 Nucleated RBC % 0 PT 13.7 INR 1.1 APTT 27.4 Sodium 134 L Potassium 4.2 Chloride 102 Carbon Dioxide 29.0 Anion Gap 3 L BUN 19 H Creatinine 0.76 Estim Creat Clear Calc 56.30 Est GFR (MDRD) Af Amer 125 Est GFR (MDRD) Non-Af 103 BUN/Creatinine Ratio 24.9 H Glucose 128 H Hemoglobin A1c Calcium 8.1 L Phosphorus Troponin I < 0.015 Triglycerides Cholesterol LDL Cholesterol VLDL Cholesterol HDL Cholesterol 10/02/20 10/02/20 10/03/20 18:00 18:00 04:05 WBC 10.3 RBC 4.01 L Hgb 12.3 L Hct 37.3 L MCV 93.0 MCH 30.7 MCHC 33.0 RDW Std Deviation 44.0 H RDW Coeff of Rodney 12.8 Plt Count 207 MPV 10.7 Immature Gran % (Auto) 0.400 Neut % (Auto) 79.7 H Lymph % (Auto) 12.1 L [place] % (Auto) 7.3 Eos % (Auto) 0.1 Baso % (Auto) 0.4 Absolute Neuts (auto) 8.2 H Absolute Lymphs (auto) 1.24 Nucleated RBC % 0 PT INR APTT Sodium Potassium Chloride Carbon Dioxide Anion Gap BUN Creatinine Estim Creat Clear Calc Est GFR (MDRD) Af Amer Est GFR (MDRD) Non-Af BUN/Creatinine Ratio Glucose Hemoglobin A1c 6.6 H Calcium Phosphorus Troponin I Triglycerides 81 Cholesterol 158 LDL Cholesterol 98 VLDL Cholesterol 16 HDL Cholesterol 44 10/03/20 04:05 WBC RBC Hgb Hct MCV MCH MCHC RDW Std Deviation RDW Coeff of Rodney Plt Count MPV Immature Gran % (Auto) Neut % (Auto) Lymph % (Auto) [place] % (Auto) Eos % (Auto) Baso % (Auto) Absolute Neuts (auto) Absolute Lymphs (auto) Nucleated RBC % PT INR APTT Sodium 141 Potassium 4.3 Chloride 109 H Carbon Dioxide 27.0 Anion Gap 5 BUN 16 Creatinine 0.77 Estim Creat Clear Calc 53.17 Est GFR (MDRD) Af Amer 123 Est GFR (MDRD) Non-Af 102 BUN/Creatinine Ratio 20.7 H Glucose 115 H Hemoglobin A1c Calcium 8.2 L Phosphorus 4.2 Troponin I Triglycerides Cholesterol LDL Cholesterol VLDL Cholesterol HDL Cholesterol Microbiology 10/02/20 18:20 Mucosa - Nose SARS-CoV-2 Antigen (Rapid) - Final Clinical Impression(s) from Imaging Studies Brain CT 10/02/20 17:45 IMPRESSION: Chronic involutional changes of the brain. N.B. : The above information has been verbally conveyed by Osiel Feliz MD to FRANCOISE VELIZ MD, on 10/02/2020 18:09:25 (ET). Electronically Signed: Osiel Feliz MD at 18:10 EST , Service support , ADDENDUM: 10/02/20 1817 IMPRESSION: Chronic involutional changes of the brain. N.B. : The above information has been verbally conveyed by Osiel Feliz MD to FRANCOISE VELIZ MD, on 10/02/2020 18:09:25 (ET). Electronically Signed: Osiel Feliz MD at 18:10 EST , Service support , Head/Neck CTA 10/02/20 17:48 IMPRESSION: 1. Minimal atherosclerotic plaque of the bilateral cavernous ICAs 2. No hemodynamically significant stenosis or occlusion of the intracranial major arteries 3. Mild atherosclerotic plaque of the carotid bulbs and left ICA, but no hemodynamically significant stenosis or occlusion of the neck carotid arteries. N.B. : The above information has been verbally conveyed by Osiel Feliz MD to FRANCOISE VELIZ MD, on 10/02/2020 18:24:54 (ET). Electronically Signed: Osiel Feliz MD at 18:25 EST , Service support , ADDENDUM: 10/02/20 1832 IMPRESSION: 1. Minimal atherosclerotic plaque of the bilateral cavernous ICAs 2. No hemodynamically significant stenosis or occlusion of the intracranial major arteries 3. Mild atherosclerotic plaque of the carotid bulbs and left ICA, but no hemodynamically significant stenosis or occlusion of the neck carotid arteries. N.B. : The above information has been verbally conveyed by Osiel Feliz MD to FRANCOISE VELIZ MD, on 10/02/2020 18:24:54 (ET). Electronically Signed: Osiel Feliz MD at 18:25 EST , Service support , Chest X-Ray 10/02/20 18:56 IMPRESSION: Normal x-ray examination of the chest. Electronically Signed: Dom Davies DO at 19:54 EST Tel [phone], Service support , Current Medications Acetaminophen (Acetaminophen 325 Mg Tablet) 650 mg PO Q6H PRN PRN PRN Reason: Pain Score 1-10/Temp > 100.7 F Atorvastatin Calcium (Atorvastatin Calcium 80 Mg Tablet) 80 mg PO QHS [facility] Last Admin: 10/02/20 22:07 Dose: Not Given Documented by: Cyclobenzaprine HCl (Cyclobenzaprine Hcl 10 Mg Tablet) 10 mg PO BID [facility] Last Admin: 10/02/20 22:07 Dose: Not Given Documented by: Nicardipine/Dextrose (Cardene-Dex 20 Mg/200 Ml Soln) 20 mg in 200 mls @ 50 mls/hr IV .Q4H PRN; Protocol PRN Reason: See Instructions Sodium Chloride () 1,000 mls @ 75 mls/hr IV .[id number] [facility] Last Admin: 10/02/20 22:17 Dose: 75 mls/hr Documented by: Lisinopril (Lisinopril 10 Mg Tablet) 10 mg PO DAILY [facility] Ondansetron HCl (Ondansetron 4 Mg/2 Ml Vial) 4 mg IV Q8H PRN PRN PRN Reason: NAUSEA/VOMITING Sodium Chloride (0.9% Saline Lock 10 Ml Syringe) 10 - 40 ml IV UD PRN PRN Reason: SALINE FLUSH Tamsulosin HCl (Tamsulosin Hcl 0.4 Mg Capsule) 0.4 mg PO DAILY@1730 [facility] Assessment/Plan Active and Suspected Problems Dysarthria (Acute) Facial droop (Acute) Left arm weakness (Acute) Acute ischemic stroke (Acute) RECOMMENDATIONS: 1. Continue routine monitoring per TPA protocol. 2. MRI brain pending for this evening. 3. Permissive hypertension. 4. PT/OT evaluations once head imaging is complete. 5. Follow-up neurology consultation. 6. Echocardiogram is pending. IMPRESSIONS: 1. Acute ischemic CVA status post TPA Continue to monitor in ICU setting per TPA protocol. Allow for permissive hypertension. Repeat head imaging is due this evening, after which time, physical and occupational therapy can evaluate the patient. Echocardiogram is currently pending. 2. History of hypertension/chronic back pain Complicates care, management, recovery and prognosis. Home lisinopril is on hold given allowances for permissive hypertension. CODE status: Discussed CODE status at length including difference between FULL code, DNR-CCA and DNR-CC status. Following discussions about the differences in these status, patient requested DNR CCA without intubation CODE STATUS. Advanced Care Planning Face to Face Time: 12 minutes This note was generated with [employer] dictation software. It may contain incorrect words, spelling, and punctuation that were not noted in checking the note before signing. Inpatient E&M: 62065 Init Hosp L3 Procedures: 23762 Advncd Care Plan 30 Min
--- NOTE | 2020-10-03 09:26 | TELEMED_ITS ---
[facility] Tele[facility] has confirmed receipt of a request for visit. This document confirms receipt of the order initiating the consult. To find the results of the consultation, please view the patient's reports for the scanned Telemed Consult.
--- NOTE | 2020-10-03 10:23 | CASEMGMT ---
SW completed a PHQ 9 with patient as he had a Stroke. He scored a 1 which indicates minimal depression. He denied need for counseling resources. Marlen FOSTER MSW
--- NOTE | 2020-10-03 10:37 | CASEMGMT ---
RN CM Assessment Note Introduced role of CM to patient's via phone to home. Patient is sleeping and very tired. Demographics, PCP verified. stated prior to admission patient was independent and did not use ambulatory DME. Plan is for patient to return home if able. Diagnosis: CVA PCP: Dr. Amrik Jacob Specialists: oziel Cuevas Insurance: [facility] Preferred Pharmacy: [facility] Prescription Benefit: yes LNOK: Living Arrangements: Lives independently in one story home with . No care needs prior to admission Tranportation: drives or can drive DME: none HHC: none SNF: none Patient DC Goals: Home DC Plan: anticipate home on discharge. PT/OT evaluations tomorrow. Pt received TPA on 10/02 and will be on bedrest until 181 on 10/03. CM available for discharge planning coordination. Contact CM for any concerns/needs that may arise. Maco MCGARRYN RN ACM
[2020-10-03] MEDS: cycloBENZAPRine HCl 10 MG Tablet PO ×2 (11:10→22:03)
[2020-10-03] MEDS: 0.9% Normal Saline 1,000 ML 75 ML IV (11:10)
--- NOTE | 2020-10-03 15:30 | CT_ITS ---
We are attempting to reach an attending provider to discuss findings. An addendum with communication details will be sent when the communication is complete. STUDY: CT BRAIN WITHOUT CONTRAST REASON FOR EXAM: Male, 85 years old. CHANGE MENTAL STATUS. S/P TPA. R/O BLEED RADIATION DOSAGE (If Supplied By Facility): CTDIvol = ( 60.81 ) mGy, DLP = ( 112.69 ) mGycm TECHNIQUE: Transaxial CT imaging of the brain was performed without administration of intravenous contrast material. Individualized dose optimization techniques were used for this CT. COMPARISON: 10/02/2020 FINDINGS: Normal soft tissue structures. Normal calvarium. Normal size ventricles and extra-axial spaces for the patient''s age. Normal white matter tracts of the cerebral hemispheres. Normal basal ganglia. There is a 12 mm hypoattenuated area within the right thalamus, new since the previous study. Normal brainstem. Normal cerebellum. There is no intracranial hemorrhage. There are no findings of an acute ischemic infarction. Normal visualized paranasal sinuses. CT/Brain/Head without Contrast IMPRESSION: Focal acute infarct in the right thalamus. Electronically Signed: Dom Davies DO at 16:17 EST Tel [phone], Service support ,
--- NOTE | 2020-10-03 15:55 | PCM.PROGNOTE ---
Patient Problems: Active and Suspected Problems Dysarthria (Acute) Facial droop (Acute) Left arm weakness (Acute) Acute ischemic stroke (Acute) Subjective: Patient was seen and examined earlier today in ICU, he still has a slight left mouth droop, he does not appear to have any focal weakness except some drift in his left arm. Patient's affect is flat however and he is slow to answer questions, I detect no expressive aphasia or dysarthria. Later today, his nurse in ICU contacted me and stated that the patient's NIH scores had worsened and so I requested a CT of the brain be performed to rule out any intracranial bleeding. Results of this test will be pending. - Physical Exam Vitals/I&O's: Vital Signs Temp Pulse Resp BP Pulse Ox 98.6 F 57 L 15 104/53 L 95 10/03/20 12:00 10/03/20 15:00 10/03/20 15:00 10/03/20 15:00 10/03/20 15:00 Oxygen Delivery Method Room Air Weight: 69.8 kg Body Mass Index (BMI) 22.6 Finger Stick Blood Glucose 114 Intake and Output for Last 24 Hours 10/01/20 10/02/20 10/03/20 23:59 23:59 23:59 Intake Total 159.5 / 159.5 1966.25 / 1966.25 Output Total 400 / 900 1616 / 1616 Balance -240.5 / -740.5 350.25 / 350.25 General: Alert, Oriented x3, Cooperative, No apparent distress, Well developed HEENT: Atraumatic, PERRLA, EOMI, Normocephalic Oral: Moist Mucosa Neck: Supple, No JVD, Trachea Midline, Thyroid Normal Size and Texture Lungs: Clear to auscultation, Normal air movement, No rhonchi, No wheeze, No rales Cardiovascular: Regular rate, Regular Rhythm, Normal S1, Normal S2, No murmurs, PMI Normal, No rub noted, No Gallop Abdomen: Bowel Sounds Present, Soft, Non Tender, Non-Distended Extremities: No clubbing, No cyanosis, No edema, Capillary Refill Less than 3 Seconds Skin: No rashes, No breakdown Musculoskeletal: No Tenderness to Palpation of Joints or Extremities Neurological: Cranial nerves II-XII grossly intact, Neuro grossly intact, Facial Droop - Left-sided facial droop is noted which is mild, - - Left arm drift is noted on examination Psych/Mental Status: Appropriate, Flat Affect Microbiology Past 72 Hours 10/02/20 18:20 Mucosa - Nose SARS-CoV-2 Antigen (Rapid) - Final Laboratory Results 10/02/20 18:00: WBC 10.6, RBC 4.14 L, Hgb 12.7 L, Hct 37.9 L, MCV 91.5, MCH 30.7, MCHC 33.5, RDW Std Deviation 41.6, RDW Coeff of Rodney 12.6, Plt Count 223, MPV 10.6, Immature Gran % (Auto) 0.400, Neut % (Auto) 77.6 H, Lymph % (Auto) 13.0 L, [place] % (Auto) 8.4, Eos % (Auto) 0.2, Baso % (Auto) 0.4, Absolute Neuts (auto) 8.2 H, Absolute Lymphs (auto) 1.38, Nucleated RBC % 0 10/02/20 18:00: PT 13.7, INR 1.1, APTT 27.4 10/02/20 18:00: Sodium 134 L, Potassium 4.2, Chloride 102, Carbon Dioxide 29.0, Anion Gap 3 L, BUN 19 H, Creatinine 0.76, Estim Creat Clear Calc 56.30, Est GFR (MDRD) Af Amer 125, Est GFR (MDRD) Non-Af 103, BUN/Creatinine Ratio 24.9 H, Glucose 128 H, Calcium 8.1 L, Troponin I < 0.015 10/02/20 18:00: Triglycerides 81, Cholesterol 158, LDL Cholesterol 98, VLDL Cholesterol 16, HDL Cholesterol 44 10/02/20 18:00: Hemoglobin A1c 6.6 H 10/03/20 04:05: WBC 10.3, RBC 4.01 L, Hgb 12.3 L, Hct 37.3 L, MCV 93.0, MCH 30.7, MCHC 33.0, RDW Std Deviation 44.0 H, RDW Coeff of Rodney 12.8, Plt Count 207, MPV 10.7, Immature Gran % (Auto) 0.400, Neut % (Auto) 79.7 H, Lymph % (Auto) 12.1 L, [place] % (Auto) 7.3, Eos % (Auto) 0.1, Baso % (Auto) 0.4, Absolute Neuts (auto) 8.2 H, Absolute Lymphs (auto) 1.24, Nucleated RBC % 0 10/03/20 04:05: Sodium 141, Potassium 4.3, Chloride 109 H, Carbon Dioxide 27.0, Anion Gap 5, BUN 16, Creatinine 0.77, Estim Creat Clear Calc 53.17, Est GFR (MDRD) Af Amer 123, Est GFR (MDRD) Non-Af 102, BUN/Creatinine Ratio 20.7 H, Glucose 115 H, Calcium 8.2 L, Phosphorus 4.2 Current Medications Acetaminophen (Acetaminophen 325 Mg Tablet) 650 mg PO Q6H PRN PRN PRN Reason: Pain Score 1-10/Temp > 100.7 F Atorvastatin Calcium (Atorvastatin Calcium 80 Mg Tablet) 80 mg PO QHS REPLACED BY [facility] Last Admin: 10/02/20 22:07 Dose: Not Given Documented by: Cyclobenzaprine HCl (Cyclobenzaprine Hcl 10 Mg Tablet) 10 mg PO BID REPLACED BY [facility] Last Admin: 10/03/20 11:10 Dose: 10 mg Documented by: Nicardipine/Dextrose (Cardene-Dex 20 Mg/200 Ml Soln) 20 mg in 200 mls @ 50 mls/hr IV .Q4H PRN; Protocol PRN Reason: See Instructions Sodium Chloride () 1,000 mls @ 75 mls/hr IV .[id number] REPLACED BY [facility] Last Admin: 10/03/20 11:10 Dose: 75 mls/hr Documented by: Ondansetron HCl (Ondansetron 4 Mg/2 Ml Vial) 4 mg IV Q8H PRN PRN PRN Reason: NAUSEA/VOMITING Sodium Chloride (0.9% Saline Lock 10 Ml Syringe) 10 - 40 ml IV UD PRN PRN Reason: SALINE FLUSH Tamsulosin HCl (Tamsulosin Hcl 0.4 Mg Capsule) 0.4 mg PO DAILY@1730 REPLACED BY [facility] Medical Necessity - Tobacco Use Smoking Status: Former smoker Tobacco Use: Cigarettes Assessment/Plan All Active Problems Dysarthria (Acute) Facial droop (Acute) Left arm weakness (Acute) Acute ischemic stroke (Acute) #1 probable right cerebral infarction-patient will get an MRI performed today, he is status post TPA administration yesterday #2 essential hypertension #3 dysarthria-possibly secondary to acute ischemic stroke, again await MRI results Inpatient E&M: 35305 Subs Hosp L2
[2020-10-03] MEDS: Atorvastatin Calcium 80 MG Tablet PO (22:02)
[2020-10-03] MEDS: Tamsulosin HCl 0.4 MG Capsule PO (22:03)
[2020-10-04] VITALS (19 sets, daily range): BP systolic 103–146; BP diastolic 39–60; PULSE 32–59; RESP 11–19; TEMP 36.3–36.6; O2SAT 92–99; BMI 22.6
[2020-10-04] MEDS: 0.9% Normal Saline 1,000 ML 75 ML IV (02:23)
--- NOTE | 2020-10-04 03:12 | CT_ITS ---
HISTORY: MENTAL STATUS CHANGE POST TPA ADDITIONAL HISTORY: None provided. COMPARISON: 10/03/2020 CT and MRI EXAMINATION/TECHNIQUE: CT Head or Brain W/O Contrast Injection. Axial, coronal and sagittal images. Number of images including paperwork: 255. A radiation dose optimization technique was used for this scan. FINDINGS: BRAIN: Acute infarcts in the right thalamus and right medial temporal and occipital lobes. Increasing edema in the temporal and occipital lobes consistent with evolving infarction. No new area of acute infarction. No hemorrhage. Mild periventricular white matter hypodensities. VENTRICULAR SYSTEM: No hydrocephalus. PARANASAL SINUSES AND MASTOIDS: No air-fluid level in the imaged extent. ORBITS: Unremarkable imaged extent. SKELETON AND SOFT TISSUES: Calvarium intact. ASPECTS score: Not applicable. CT/Brain/Head without Contrast IMPRESSION: No acute hemorrhage. Evolving right medial temporal and occipital infarct. Minimal change in appearance of right thalamic infarct. Individualized dose optimization techniques were used for this CT. at 0328 Reported and signed by: Shruthi Zheng MD Electronically Signed: Shruthi Zheng MD at 3:27 EST Tel , Service support ,
--- NOTE | 2020-10-04 04:15 | PN_ITS ---
Subjective: The patient was seen and examined at the bedside this morning. Events from the last 24 hours have been reviewed. The patient is currently afebrile, hemodynamically stable and maintaining appropriate oxygen saturations on room air. The patient has remained bradycardic overnight. Yesterday afternoon and again last night, the patient had increasing neurological deficits, for which repeat head imaging was obtained. The patient's most recent CT head completed overnight revealed an evolving right medial temporal and occipital infarct. However, as of this morning, the patient's left-sided weakness has improved. He is without any specific complaints this morning. Objective: The patient's most recent lab work, culture data and imaging studies have all been personally reviewed. Surface echocardiogram revealed normal LV size with an ejection fraction of 55%. Bubble contrast study was negative for interatrial shunt. General: Alert, No apparent distress HEENT: Atraumatic, Normocephalic Oral: No Gingival or Mucosal Lesions/ Ulcerations Neck: Supple, No Nodes, Trachea Midline Lungs: Normal air movement Cardiovascular: Normal S1, Normal S2, Bradycardic Abdomen: Bowel Sounds Present, Soft, Non Tender Extremities: No clubbing, No cyanosis, No edema Skin: No breakdown Musculoskeletal: No Tenderness to Palpation of Joints or Extremities Lymphatic: No Cervical, Supraclavicular, or Inguinal Adenopathy Neurological: - - Mild facial droop Psych/Mental Status: Flat Affect Vital Signs Temp Pulse Resp BP Pulse Ox 97.3 F L 40 L 11 L 103/52 L 97 10/04/20 00:00 10/04/20 02:00 10/04/20 02:00 10/04/20 02:00 10/04/20 02:00 Oxygen Delivery Method Room Air Weight: 153 lb 14.122 oz Body Mass Index (BMI) 22.6 Finger Stick Blood Glucose 114 Intake and Output for Last 24 Hours 10/02/20 10/03/20 10/04/20 23:59 23:59 23:59 Intake Total 159.5 / 159.5 1965.25 / 1965. 1000 / 1000 Output Total 400 / 900 2266 / 2366 100 / 100 Balance -240.5 / -740.5 -299.75 / -399.75 900 / 900 Labs (Last 48 Hours) 10/02/20 10/02/20 10/02/20 18:00 18:00 18:00 WBC 10.6 RBC 4.14 L Hgb 12.7 L Hct 37.9 L MCV 91.5 MCH 30.7 MCHC 33.5 RDW Std Deviation 41.6 RDW Coeff of Rodney 12.6 Plt Count 223 MPV 10.6 Immature Gran % (Auto) 0.400 Neut % (Auto) 77.6 H Lymph % (Auto) 13.0 L Buchanan % (Auto) 8.4 Eos % (Auto) 0.2 Baso % (Auto) 0.4 Absolute Neuts (auto) 8.2 H Absolute Lymphs (auto) 1.38 Nucleated RBC % 0 PT 13.7 INR 1.1 APTT 27.4 Sodium 134 L Potassium 4.2 Chloride 102 Carbon Dioxide 29.0 Anion Gap 3 L BUN 19 H Creatinine 0.76 Estim Creat Clear Calc 56.30 Est GFR (MDRD) Af Amer 125 Est GFR (MDRD) Non-Af 103 BUN/Creatinine Ratio 24.9 H Glucose 128 H Hemoglobin A1c Calcium 8.1 L Phosphorus Troponin I < 0.015 Triglycerides Cholesterol LDL Cholesterol VLDL Cholesterol HDL Cholesterol 10/02/20 10/02/20 10/03/20 18:00 18:00 04:05 WBC 10.3 RBC 4.01 L Hgb 12.3 L Hct 37.3 L MCV 93.0 MCH 30.7 MCHC 33.0 RDW Std Deviation 44.0 H RDW Coeff of Rodney 12.8 Plt Count 207 MPV 10.7 Immature Gran % (Auto) 0.400 Neut % (Auto) 79.7 H Lymph % (Auto) 12.1 L Buchanan % (Auto) 7.3 Eos % (Auto) 0.1 Baso % (Auto) 0.4 Absolute Neuts (auto) 8.2 H Absolute Lymphs (auto) 1.24 Nucleated RBC % 0 PT INR APTT Sodium Potassium Chloride Carbon Dioxide Anion Gap BUN Creatinine Estim Creat Clear Calc Est GFR (MDRD) Af Amer Est GFR (MDRD) Non-Af BUN/Creatinine Ratio Glucose Hemoglobin A1c 6.6 H Calcium Phosphorus Troponin I Triglycerides 81 Cholesterol 158 LDL Cholesterol 98 VLDL Cholesterol 16 HDL Cholesterol 44 10/03/20 04:05 WBC RBC Hgb Hct MCV MCH MCHC RDW Std Deviation RDW Coeff of Rodney Plt Count MPV Immature Gran % (Auto) Neut % (Auto) Lymph % (Auto) Buchanan % (Auto) Eos % (Auto) Baso % (Auto) Absolute Neuts (auto) Absolute Lymphs (auto) Nucleated RBC % PT INR APTT Sodium 141 Potassium 4.3 Chloride 109 H Carbon Dioxide 27.0 Anion Gap 5 BUN 16 Creatinine 0.77 Estim Creat Clear Calc 53.17 Est GFR (MDRD) Af Amer 123 Est GFR (MDRD) Non-Af 102 BUN/Creatinine Ratio 20.7 H Glucose 115 H Hemoglobin A1c Calcium 8.2 L Phosphorus 4.2 Troponin I Triglycerides Cholesterol LDL Cholesterol VLDL Cholesterol HDL Cholesterol Microbiology 10/02/20 18:20 Mucosa - Nose SARS-CoV-2 Antigen (Rapid) - Final Clinical Impression(s) from Imaging Studies Brain CT 10/02/20 17:45 IMPRESSION: Chronic involutional changes of the brain. N.B. : The above information has been verbally conveyed by Osiel Feliz MD to FRANCOISE VELIZ MD, on 10/02/2020 18:09:25 (ET). Electronically Signed: Osiel Feliz MD at 18:10 EST , Service support , ADDENDUM: 10/02/20 1817 IMPRESSION: Chronic involutional changes of the brain. N.B. : The above information has been verbally conveyed by Osiel Feliz MD to FRANCOISE VELIZ MD, on 10/02/2020 18:09:25 (ET). Electronically Signed: Osiel Feliz MD at 18:10 EST , Service support , Head/Neck CTA 10/02/20 17:48 IMPRESSION: 1. Minimal atherosclerotic plaque of the bilateral cavernous ICAs 2. No hemodynamically significant stenosis or occlusion of the intracranial major arteries 3. Mild atherosclerotic plaque of the carotid bulbs and left ICA, but no hemodynamically significant stenosis or occlusion of the neck carotid arteries. N.B. : The above information has been verbally conveyed by Osiel Feliz MD to FRANCOISE VELIZ MD, on 10/02/2020 18:24:54 (ET). Electronically Signed: Osiel Feliz MD at 18:25 EST , Service support , ADDENDUM: 10/02/20 1832 IMPRESSION: 1. Minimal atherosclerotic plaque of the bilateral cavernous ICAs 2. No hemodynamically significant stenosis or occlusion of the intracranial major arteries 3. Mild atherosclerotic plaque of the carotid bulbs and left ICA, but no hemodynamically significant stenosis or occlusion of the neck carotid arteries. N.B. : The above information has been verbally conveyed by Osiel Feliz MD to FRANCOISE VELIZ MD, on 10/02/2020 18:24:54 (ET). Electronically Signed: Osiel Feliz MD at 18:25 EST , Service support , Chest X-Ray 10/02/20 18:56 IMPRESSION: Normal x-ray examination of the chest. Electronically Signed: Dom Davies DO at 19:54 EST Tel [phone], Service support , Brain MRI 10/02/20 20:36 IMPRESSION: 1. Acute infarcts in the medial aspects of the right temporal and occipital lobes 2. Small to moderate size acute infarct of the right thalamic lobe. Electronically Signed: Osiel Feliz MD at 22:09 EST , Service support , Brain CT 10/03/20 15:30 IMPRESSION: Focal acute infarct in the right thalamus. Electronically Signed: Dom Davies DO at 16:17 EST Tel [phone], Service support , ADDENDUM: 10/03/20 1704 IMPRESSION: Focal acute infarct in the right thalamus. N.B. : The above information has been verbally conveyed by Dom Davies DO to Amrik Massey DO, DO on 10/03/2020 16:57:14 (ET). Electronically Signed: Dom Davies DO at 16:17 EST Tel [phone], Service support , Brain CT 10/04/20 03:12 IMPRESSION: No acute hemorrhage. Evolving right medial temporal and occipital infarct. Minimal change in appearance of right thalamic infarct. Individualized dose optimization techniques were used for this CT. at 0328 Reported and signed by: Shruthi Zheng MD Electronically Signed: Shruthi Zheng MD at 3:27 EST Tel , Service support , Medical Necessity - Tobacco Use Smoking Status: Former smoker Tobacco Use: Cigarettes Assessment/Plan All Active Problems Dysarthria (Acute) Facial droop (Acute) Left arm weakness (Acute) Acute ischemic stroke (Acute) RECOMMENDATIONS: 1. Obtain follow-up neurology consultation. 2. Obtain cardiology consultation for recommendations. 3. PT/OT evaluations. 4. Continue to allow for permissive hypertension. 5. Obtain MRI brain. IMPRESSIONS: 1. Acute ischemic CVA status post TPA Given findings noted on CT brain overnight with evolving infarct involving the right medial temporal and occipital lobes, recommend follow-up neurology consultation. Obtain MRI brain for recommendations. Given that the patient remains bradycardic, cardiology consultation will also be obtained. Continue to allow for permissive hypertension. 2. History of hypertension/chronic back pain Complicates care, management, recovery and prognosis. Home lisinopril is on hold given allowances for permissive hypertension. CODE status: Discussed CODE status at length including difference between FULL code, DNR-CCA and DNR-CC status. Following discussions about the differences in these status, patient requested DNR CCA without intubation CODE STATUS. This note was generated with [employer] dictation software. It may contain incorrect words, spelling, and punctuation that were not noted in checking the note before signing. Inpatient E&M: 75739 Subs Hosp L3
[2020-10-04] MEDS: DOPamine IV 800 MG/250 ML IV.SOLN. 6.8 MG CONT INF (09:27)
--- NOTE | 2020-10-04 09:33 | PCM.CONS.C ---
Reason for Consult Date of Consultation: 10/04/20 Reason for Consultation: bradycardia History of Present Illness: Reason for Consultation: Bradycardia History Of Present Illness: Patient is a 85 years old male seen today for stroke with sinus bradycardia in the 30s. Patient presented on the due to left-sided weakness and was found to have CVA. The patient was a candidate for TPA and was given TPA. The patient's been managed by [facility] v[facility] tender team along with teleneurology. The patient motor function is improving. This morning, the patient mentation appears to be labile. Heart rate is also in the 30s. For this reason a stat CT of the head was done which show increased cerebral edema with no acute bleed. There is no obvious midline shift. This reason, cardiology was consulted for further evaluation. We reviewed the ECG with did not show evidence of acute ongoing cardiac ischemia. Laboratory was unremarkable for tachyarrhythmia. The patient had an echo done which show LVEF of 55%. The bubble study was negative for intracardiac shunt. Past Medical History Past Medical History (Chronic Problems): Chronic Problems Chronic back pain (Chronic) Hypertension (Chronic) Allergies lactic acid [From Lac-Hydrin] Allergy (Verified 10/02/20 17:52) Rash PT UNSURE OF REACTION Penicillins Allergy (Verified 10/02/20 17:52) Unknown Home Medications: Ambulatory Orders Medication Instructions Recorded Alfuzosin HCl [Uroxatral] 10 mg PO DAILY 10/02/20 Cholecalciferol (Vitamin D3) 50 mcg PO DAILY 10/02/20 [Vitamin D3] Cyclobenzaprine HCl 10 mg PO BID 10/02/20 Diphenhydramine HCl [Allergy] 25 mg PO DAILY PRN PRN 10/02/20 Dutasteride 0.5 mg PO DAILY 10/02/20 Lisinopril [Zestril] 10 mg PO DAILY 10/02/20 Magnesium 500 mg PO DAILY 10/02/20 Meloxicam 15 mg PO DAILY 10/02/20 Multivitamin/Iron/Folic Acid 1 ea PO DAILY 10/02/20 [Centrum Adults Tablet] Surgical History: - - Right shoulder repair. Back surgery. Psychiatric History: No pertinent psych hx Lives: Spouse/ Significant Other Smoking Status: Never smoker Tobacco Use: Cigarettes Alcohol: None Drugs: None - *Family History Maternal History Items: No pertinent history Paternal History Items: No pertinent history Review of Systems: Constitutional: Denies: Chills, Fever Eyes: Denies: Blurred vision, Double vision HEENT: Denies: Head Aches, Sinus Congestion, Sinus Drainage Cardiovascular: Denies: Chest Pain, Palpitations Respiratory: Denies: Cough, Shortness of breath at rest, Sputum production Gastrointestinal: Denies: Abdominal Pain, Nausea, Vomiting Genitourinary: Denies: Dysuria Musculoskeletal: Reports: Back Pain Skin: Denies: Rash, Wounds Neurological: Reports: Change in Speech, Slurred speech, Confusion Psychiatric: Denies: Anxiety, Depression, Homicidal Ideations, Suicidal Ideations Hematologic/ Lymphatic: Denies: Easy Bruising, Easy Bleeding Allergies: ALLERGY[ ] Physical Exam: Vitals: see vitals General: Alert, not oriented, per nursing this is not his baseline HEENT: Atraumatic, Normocephalic Oral: No Gingival or Mucosal Lesions/ Ulcerations Neck: Supple, No Nodes, Trachea Midline Lungs: Normal air movement Cardiovascular: Sinus bradycardia, Normal S1, Normal S2, PETRA at the apex Abdomen: Bowel Sounds Present, Soft, Non Tender Extremities: No clubbing, No cyanosis, No edema Skin: No breakdown Musculoskeletal: No Muscle Wasting Lymphatic: No Cervical, Supraclavicular, or Inguinal Adenopathy Neurological: Cranial nerves II-XII grossly intact, Facial Droop, left-sided weakness with motor function about 3-4 out of 5 Psych/Mental Status: Flat Affect [ALLERGY] [PTAMEDS] Scheduled Meds: [MEDSSCHEDULED] Continuous Infusions: [MEDSINFUSIONS] PRN Meds [MEDSPRN] Vitals: [VSRANGES] [V] [FLOW([id number]:LAST)] [IOBRIEF] [LASTWT(2)] [LASTHT(2)] Assessment and plan: +Sinus bradycardia secondary to cerebral edema We recommend supportive care. Patient bradycardia improved with activities mainly talking. We recommend dopamine as needed to help with the hemodynamic status. We also discussed with neurology team, Dr. Barrientos, regarding escalation of care. We both agree that the patient need to be transferring to a higher care facility for further monitoring and possibly intervention if needed. -At this time, the patient does not need a temporary pacer unless his medical condition change. + Acute ischemic CVA status post TPA -See management above. Neurology team is following closely. + Hypertension Currently borderline hypotensive. We will give IV fluid as needed. Past Medical History Allergies/Adverse Reactions: Allergies lactic acid [From Lac-Hydrin] Allergy (Verified 10/02/20 17:52) Rash PT UNSURE OF REACTION Penicillins Allergy (Verified 10/02/20 17:52) Unknown Home Medications: Ambulatory Orders Medication Instructions Recorded Alfuzosin HCl [Uroxatral] 10 mg PO DAILY 10/02/20 Cholecalciferol (Vitamin D3) 50 mcg PO DAILY 10/02/20 [Vitamin D3] Cyclobenzaprine HCl 10 mg PO BID 10/02/20 Diphenhydramine HCl [Allergy] 25 mg PO DAILY PRN PRN 10/02/20 Dutasteride 0.5 mg PO DAILY 10/02/20 Lisinopril [Zestril] 10 mg PO DAILY 10/02/20 Magnesium 500 mg PO DAILY 10/02/20 Meloxicam 15 mg PO DAILY 10/02/20 Multivitamin/Iron/Folic Acid 1 ea PO DAILY 10/02/20 [Centrum Adults Tablet] Past Medical History (Chronic Problems): Chronic Problems Chronic back pain (Chronic) Hypertension (Chronic) Surgical History: - - Right shoulder repair. Back surgery. Psychiatric History: No pertinent psych hx - *Family History Maternal History Items: No pertinent history Paternal History Items: No pertinent history Lives: Spouse/ Significant Other Smoking Status: Former smoker Tobacco Use: Cigarettes Alcohol: None Drugs: None Objective: Vital Signs Temp Pulse Resp BP Pulse Ox 97.9 F 32 L 14 118/39 L 96 10/04/20 04:00 10/04/20 07:29 10/04/20 07:29 10/04/20 09:27 10/04/20 07:29 Oxygen Delivery Method Room Air Weight: 158 lb 11.725 oz Body Mass Index (BMI) 22.6 Finger Stick Blood Glucose 114 Intake and Output for Last 24 Hours 10/02/20 10/03/20 10/04/20 23:59 23:59 23:59 Intake Total 159.5 / 159.5 1965. / 1965.25 1411.25 / 1411.25 Output Total 400 / 900 2266 / 2366 325 / 325 Balance -240.5 / -740.5 -299.75 / -399.75 1086.25 / 1086.25 Rhythm: EKG: ECHO: Stress Test: Cardiac Cath: PCI: CT Surgery: Holter monitor: EPS: PPM: CXR: Chest CT Scan:
--- NOTE | 2020-10-04 10:05 | NURSING ---
Called [facility] at 10:00am spoke to Lily. They said ETA would be 90 minutes to 2 hours and would notify us of any changes.
[2020-10-04] MEDS: TITRATION PARAMETER CHANGE 1 EACH IV (12:10)
[2020-10-04] MEDS: Lidocaine Jelly 2% 20 ML Syringe (URO-JET) 20 APPLIC TOPICAL (12:10)
[2020-10-04] MEDS: 0.9% Saline Lock 10 ML Syringe IV (12:11)
--- NOTE | 2020-10-05 17:01 | PCM.DC.SUM ---
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 with strokelike symptoms, patient had expressive aphasia and he was not moving his left arm or leg well. Stroke alert was called when EMS arrived at the hospital emergency room, NIH stroke score was 8 on arrival, CT scan did not reveal an acute abnormality, CT of the head neck was performed which showed no sign of large vessel occlusion. [facility] teleneurology evaluated the patient and recommended TPA administration and this was given. Patient initially had high blood pressure and required a dose of labetalol to make him a candidate for TPA. Patient's NIH score improved after receiving TPA. Patient was admitted to ICU, he was seen by critical care and the following day, patient's NIH scores elevated in the afternoon and a CT was obtained to rule out intracranial bleed-the CTA showed an acute stroke in the right thalamus area. Patient had bradycardia during his ICU stay, on the morning of 09/14/2020, he was noted to have a worsening bradycardia and was seen in consultation by cardiology who placed the patient on dopamine and contacted neurology who recommended that the patient be transferred to an acute care hospital for further treatment. On 10/04/2020, patient was seen and examined:General: Alert, Oriented x3, Cooperative, No apparent distress, Well developed HEENT: Atraumatic, PERRLA, EOMI, Normocephalic Oral: Moist Mucosa Neck: Supple, No JVD, Trachea Midline, Thyroid Normal Size and Texture Lungs: Clear to auscultation, Normal air movement, No rhonchi, No wheeze, No rales Cardiovascular: Regular rate, Regular Rhythm, Normal S1, Normal S2, No murmurs, PMI Normal, No rub noted, No Gallop Abdomen: Bowel Sounds Present, Soft, Non Tender, Non-Distended Extremities: No clubbing, No cyanosis, No edema, Capillary Refill Less than 3 Seconds Skin: No rashes, No breakdown Musculoskeletal: No Tenderness to Palpation of Joints or Extremities Neurological: Cranial nerves II-XII grossly intact, Neuro grossly intact, Facial Droop - Left-sided facial droop is noted which is mild, - - Left arm drift is noted on examination Psych/Mental Status: Appropriate, Flat Affect On 10/04/2020, patient was seen and examined and felt to be in stable condition for transfer to [facility] for further neurological care. Patient Problems: Active and Suspected Problems Dysarthria (Acute) Facial droop (Acute) Left arm weakness (Acute) Acute ischemic stroke (Acute) - Physical Exam Vitals/I&O's: Vital Signs Temp Pulse Resp BP Pulse Ox 97.8 F 40 L 15 134/49 H 97 10/04/20 13:15 10/04/20 13:15 10/04/20 13:15 10/04/20 13:15 10/04/20 13:15 Oxygen Delivery Method Room Air Weight: 72 kg Body Mass Index (BMI) 22.6 Finger Stick Blood Glucose 114 Intake and Output for Last 24 Hours 10/03/20 10/04/20 10/05/20 23:59 23:59 23:59 Intake Total 1966.25 / 1966.25 2370.00 / 2370.00 Output Total 2266 / 2366 1075 / 1075 Balance -299.75 / -399.75 1295.00 / 1295.00 Microbiology Past 72 Hours 10/02/20 18:20 Mucosa - Nose SARS-CoV-2 Antigen (Rapid) - Final Home Medications: Medications to take at Discharge Alfuzosin HCl [Uroxatral] 10 mg PO DAILY 10/02/20 Cholecalciferol (Vitamin D3) [Vitamin D3] 50 mcg PO DAILY 10/02/20 Cyclobenzaprine HCl 10 mg PO BID 10/02/20 Diphenhydramine HCl [Allergy] 25 mg PO DAILY PRN PRN 10/02/20 Dutasteride 0.5 mg PO DAILY 10/02/20 Lisinopril [Zestril] 10 mg PO DAILY 10/02/20 Magnesium 500 mg PO DAILY 10/02/20 Meloxicam 15 mg PO DAILY 10/02/20 Multivitamin/Iron/Folic Acid [Centrum Adults Tablet] 1 ea PO DAILY 10/02/20 Primary Care Physician: Amrik Jacob MD [Primary Care Provider] - Disposition: Acute care Hospital Minutes spent on discharge:: 32 Patient Condition:: Stable Medical Necessity - Tobacco Use Smoking Status: Former smoker Tobacco Use: Cigarettes Meaningful Use Info Meaningful Use Diagnoses (Choose all that apply): Ischemic CVA - CVA Therapy Assessed for PT,OT and/or ST?: Yes - Ischemic Stroke Antithrombotic order at d/c?: Yes Dx of Atrial fib/flutter?: No Anticoagulant at discharge?: No Reason anticoagulant not ordered: Treatment not Indicated Statins at discharge?: Yes Primary Dx Acute Ischemic CVA?: Yes IV tPA ordered during stay?: Yes Inpatient E&M: 18830 Disch Hosp
== END 2020-10-04 13:40 | disposition short-term general hospital (02) | DRG 62 ==
LOC: ED 18:22 → ICU 19:42
PROVIDERS: Admitting Provider Hospitalist; Emergency Provider Emergency Medicine; PCP Family Medicine; Visit Provider Internal Medicine
DX: I63.431 Cerebral infarction due to embolism of right posterior cerebral artery (principal); G81.94 Hemiplegia, unspecified affecting left nondominant side; R47.1 Dysarthria and anarthria; R29.810 Facial weakness; I10 Essential (primary) hypertension; R29.708 NIHSS score 8; M51.36 Other intervertebral disc degeneration, lumbar region; G89.29 Other chronic pain; Z66 Do not resuscitate; Z79.1 Long term (current) use of non-steroidal anti-inflammatories (NSAID); Z79.899 Other long term (current) drug therapy; Z87.891 Personal history of nicotine dependence
CPT/HCPCS: 70450; 70496; 70498; 70551; 71045; 80048; 80061; 83036; 84100; 84484; 85025; 85610; 85730; 87426; 92507; 92523; 92610; 93005; 93306; 99285; J2997; J7030; Q9967; A4216

== ENCOUNTER 2020-11-07 15:23 | Outpatient (RCR) | payer MEDICARE, SELFPAY ==
[2020-10-04 05:00] VITALS: BMI 22.6
== END 2020-11-07 23:59 ==
LOC: IMMUN 15:23
PROVIDERS: PCP Family Medicine; Visit Provider Family Medicine
DX: Z23 Encounter for immunization (principal)
CPT/HCPCS: 0011A; 0012A; 91301

== ENCOUNTER → 2020-11-22 14:55 | Outpatient (CLI) | payer MEDICARE, SELFPAY ==
[2020-10-04 05:00] VITALS: BMI 22.6
--- NOTE | 2020-11-22 15:01 | CT_ITS ---
STUDY: CT ABDOMEN AND PELVIS WITH CONTRAST REASON FOR EXAM: Male, 85 years old. GROSS HEMATURIA RADIATION DOSAGE (If Supplied By Facility): CTDIvol = ( 9.09 ) mGy, DLP = ( 936.54 ) mGycm TECHNIQUE: Transaxial images were obtained from the dome of the diaphragm to the symphysis pubis without oral contrast. IV 100mL Isovue-300 was administered. Sagittal and coronal images were reconstructed. Individualized dose optimization techniques were used for this CT. COMPARISON: None. FINDINGS: Mild increased markings at the lung bases suggestive of scarring. This a 3.5 cm x 2 cm well-defined cystic structure deep in the right anterior chest wall as seen on axial image #1. Mitral valve annulus calcification. Normal liver. There are multiple gallstones. Normal spleen. There is diffuse atrophy of the pancreas. Normal bilateral adrenal glands. There is a 6.4 cm x 5.6 cm cyst in the mid inferior lateral aspect of the right kidney. Normal left kidney. Normal visualized stomach. Normal small intestine. There are multiple colonic diverticula consistent with diverticulosis. The appendix is visualized and appears normal. There is diffuse atherosclerotic calcification of the abdominal aorta, without a demonstrated aneurysm. Normal inferior vena cava. Normal retroperitoneum. Normal urinary bladder. There is enlargement of the prostate gland. It measures 4.3 cm x 5 cm. This causes indentation at the bladder base. Central prostatic calcifications are seen. Small bilateral inguinal hernias containing fat. There are diffuse degenerative changes of the visualized lumbar spine. Loss of the normal lumbar lordosis. CT/Abdomen/Pelvis W IV Cont ONLY IMPRESSION: Dominant cyst in the right kidney. Multiple gallstones. Prostatic enlargement with indentation at the bladder base. Electronically Signed: Ashkan Siu MD at 15:34 EST , Service support ,
[2020-11-22 15:11] LABS: CREATININE FINGERSTICK 1.2 mg/dL (0.70-1.30); EGFR FINGERSTICK > 60.0000 mL/min (>60)
== END ==
PROVIDERS: PCP Family Medicine; Referring Provider Nurse Practitioner Adult Health; Visit Provider Nurse Practitioner Adult Health
DX: R31.0 Gross hematuria (principal)
CPT/HCPCS: 74177; Q9967

== ENCOUNTER 2021-01-15 13:53 | Emergency (ER) | payer MEDICARE, SELFPAY ==
[2020-10-04 05:00] VITALS: BMI 22.6
[2021-01-15 13:53] VITALS: BP 155/79; PULSE 77; RESP 16; TEMP 36.3; O2SAT 95; BMI 22.1
--- NOTE | 2021-01-15 14:00 | RAD_ITS ---
STUDY: X-RAY - RIGHT KNEE REASON FOR EXAM: Male, 85 years old. FALL TECHNIQUE: 4 view(s) of the knee. COMPARISON: None. FINDINGS: Normal visualized distal femur. Normal visualized proximal tibia and fibula. Normal proximal tibiofibular articulation. There is moderate degenerative arthrosis of the medial femorotibial compartment with moderate joint space narrowing. Normal lateral femorotibial compartment. There is mild degenerative arthrosis of the patellofemoral articulation. The soft tissue structures are unremarkable. RAD/Knee 4 or More Views IMPRESSION: Degenerative arthrosis. Electronically Signed: Sher Soto MD at 15:33 EDT Tel , Service support ,
--- NOTE | 2021-01-15 14:40 | CT_ITS ---
STUDY: CT CERVICAL SPINE WITHOUT CONTRAST REASON FOR EXAM: Male, 85 years old. Injury/Pain RADIATION DOSAGE (If Supplied By Facility): CTDIvol = ( 21.39 ) mGy, DLP = ( 455.34 ) mGycm TECHNIQUE: High resolution transaxial imaging was performed without contrast material. Sagittal and coronal images were reconstructed. Individualized dose optimization techniques were used for this CT. COMPARISON: None FINDINGS: Normal craniovertebral junction. Normal anterior atlantoaxial articulation. Normal odontoid process. There is straightening of the normal cervical lordosis. Normal vertebral bodies and posterior osseous elements. C2-3: Endplate spondylosis. 2 mm spondylolisthesis. Central and paracentral disc bulge. Degenerative changes of the bilateral facet joints and uncovertebral joints. Moderate narrowing of the central canal and the bilateral intervertebral neural foramina. C3-4: Endplate spondylosis. 2 mm spondylolisthesis. Central and paracentral disc bulge. Degenerative changes of the bilateral facet joints and uncovertebral joints. Moderate narrowing of the central canal and the bilateral intervertebral neural foramina. C4-5: Endplate spondylosis. Central and paracentral disc bulge. Degenerative changes of the bilateral facet joints and uncovertebral joints. Moderate narrowing of the central canal and the bilateral intervertebral neural foramina. C5-6: Endplate spondylosis. Central and paracentral disc bulge. Degenerative changes of the bilateral facet joints and uncovertebral joints. Moderate narrowing of the central canal and the bilateral intervertebral neural foramina. C6-7: Endplate spondylosis. Central and paracentral disc bulge. Degenerative changes of the bilateral facet joints and uncovertebral joints. Moderate narrowing of the central canal and the bilateral intervertebral neural foramina. C7-T1: Endplate spondylosis. 3 mm spondylolisthesis. Central and paracentral disc bulge. Degenerative changes of the bilateral facet joints. Moderate narrowing of the central canal and the bilateral intervertebral neural foramina. Normal visualized soft tissue structures. CT/Spine Cervical without Contras IMPRESSION: Multilevel degenerative changes, as described above. Electronically Signed: Sher Soto MD at 15:24 EDT Tel , Service support ,
--- NOTE | 2021-01-15 14:40 | CT_ITS ---
STUDY: CT BRAIN WITHOUT CONTRAST REASON FOR EXAM: Male, 85 years old. Injury/Pain RADIATION DOSAGE (If Supplied By Facility): CTDIvol = ( 44.99 ) mGy, DLP = ( 812.98 ) mGycm TECHNIQUE: Transaxial CT imaging of the brain was performed without administration of intravenous contrast material. Individualized dose optimization techniques were used for this CT. COMPARISON: No relevant priors. FINDINGS: Normal soft tissue structures. Normal calvarium. Normal size ventricles and extra-axial spaces for the patient''s age. There are areas of decreased attenuation within the white matter tracts of the supratentorial brain, consistent with microvascular disease changes. 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 There is an old infarction in the right thalamus. Normal brainstem. Normal cerebellum. There is no intracranial hemorrhage. There are no findings of an acute ischemic infarction. Normal visualized paranasal sinuses. CT/Brain/Head without Contrast IMPRESSION: Chronic involutional changes of the brain. 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 Electronically Signed: Sher Soto MD at 15:21 EDT Tel , Service support ,
[2021-01-15] MEDS: Diphth,Pertuss(Acell),Tet Vac 0.5 ML Vial IM (15:22)
--- NOTE | 2021-01-15 15:39 | ED.DCSUM_ITS ---
- ER Visit Summary Date of Service: 01/15/21 Chief Complaint: Fall History of Present Illness: The patient is a [address] Shayan Wynne. 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 States that at 730 this morning got up to walk into the bathroom and hit his left side on the door jam. He lost his balance and tried to grab the door without success. He fell and injured his right knee. He has pain is 7 out of 10 severity. He also complains of head and neck pain that is 3 out of 10 in severity. No loss of consciousness. He is not on anticoagulants. He is unsure when his last tetanus shot was. Physical Examination: Vitals: Stable. Afebrile. Head: Approximately quarter size skin tear to the face just inferior to his right confucianism. Neck: Mild diffuse tenderness to palpation over the entire C-spine. Full ROM without difficulty. Back: No vertebral tenderness. General: A&O x 3. NAD. Cardiovascular exam: Regular rate and rhythm, no murmur, rub or gallop. Respiratory exam: Chest nontender. No crepitus. Clear to auscultation bilaterally. No wheezes or stridor. Abdominal exam: Soft, nontender, nondistended, normal bowel sounds. No pain in RUQ or LUQ specifically. No peritoneal signs. Extremity: Dime size skin tear over the right patella. Mild tenderness to palpation.. No pain with range of motion. Test Results: Clinical Impression(s) from Imaging Studies Knee X-Ray 01/15/21 14:00 IMPRESSION: Degenerative arthrosis. Electronically Signed: Sher Soto MD at 15:33 EDT Tel , Service support , Brain CT 01/15/21 14:40 IMPRESSION: Chronic involutional changes of the brain. 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 Electronically Signed: Sher Soto MD at 15:21 EDT Tel , Service support , Cervical Spine CT 01/15/21 14:40 IMPRESSION: Multilevel degenerative changes, as described above. Electronically Signed: Sher Soto MD at 15:24 EDT Tel , Service support , Emergency Department Course and Treatment: Patient had his tetanus updated. He is resting comfortably. He refused pain medications. Treatment Plan: Patient be discharged instructions to follow-up with his primary care physician in 3 to 5 days if not improving. Return to the emergency department for any worsening symptoms. Disposition: To home in improved and stable condition. Impression: 1. Fall. 2. Skin tear to face and right knee. 3. Cervical strain. This note was generated with [employer] dictation software. It may contain incorrect words, spelling, and punctuation that were not noted in review of the chart prior to signing ED Disposition - Plan for ED Patient: Instructions: ED Skin Avulsion Referrals: Amrik Jacob MD [Primary Care Provider] - 3-5 Days if not improving
== END 2021-01-15 15:59 | disposition home or self-care (01) ==
LOC: ED 15:17
PROVIDERS: Emergency Provider Emergency Medicine; PCP Family Medicine
DX: S16.1XXA Strain of muscle, fascia and tendon at neck level, initial encounter (principal); W22.09XA Striking against other stationary object, initial encounter; W19.XXXA Unspecified fall, initial encounter; Z86.73 Personal history of transient ischemic attack (TIA), and cerebral infarction without residual deficits; Z23 Encounter for immunization; S01.81XA Laceration without foreign body of other part of head, initial encounter; S81.011A Laceration without foreign body, right knee, initial encounter
CPT/HCPCS: 70450; 72125; 73564; 90715; 99282

== ENCOUNTER 2021-06-05 07:00 | Day surgery (SDC) | payer MEDICARE, SELFPAY ==
[2021-03-18 12:32] VITALS: BMI 23.9
--- NOTE | 2021-05-30 14:05 | EKG12_ITS ---
Test Reason : PRE OP Blood Pressure : / mmHG Vent. Rate : 079 BPM Atrial Rate : 079 BPM P-R Int : 220 ms QRS Dur : 094 ms QT Int : 384 ms P-R-T Axes : 042 016 069 degrees QTc Int : 440 ms Sinus rhythm with 1st degree A-V block Otherwise normal ECG Confirmed by AZAM HERNANDEZ, ARIEL ([id number]), editor publications COSNUELO WALSH ([id number]) on 06/02/2021 1:28:19 PM Referred By: BRINDA Confirmed By:REYNA NASCIMENTO MD
[2021-05-30 14:33] LABS: Hematocrit 41.1 % (40-54); Hemoglobin 13.8 g/dL (13.0-16.5); Mean Corp Hgb Conc 33.6 g/dL (32-36); Mean Corpuscular Volume 92.4 fL (80-94); Mean Platelet Vol. 10.7 fl (6.2-12.0); Platelet Count 234 K/mm3 (150-450); RBC Distribution Width CV 12.6 % (11.6-14.6); Red Blood Count 4.45 M/mm3 (4.6-6.2); White Blood Count 7.5 K/mm3 (4.4-11.0)
[2021-05-30 14:59] LABS: Anion Gap 4 (5-15); BUN 13 mg/dL (7-18); BUN/Creat Ratio 15.7 RATIO (10-20); Chloride 107 mmol/L (98-107); Creatinine, Serum 0.83 mg/dL (0.70-1.30); EST Glomerular Filtration Rate 94 mL/min (>60); Est Glom Filt Rate - Afr Amer 114 mL/min (>60); Glucose 221 mg/dL (74-106); Potassium 4.2 mmol/L (3.5-5.1); Sodium Level 139 mmol/L (136-145)
[2021-06-05] VITALS (8 sets, daily range): BP systolic 94–147; BP diastolic 67–81; PULSE 68–86; RESP 16; TEMP 36.1–36.7; O2SAT 91–96; BMI 24.9
--- NOTE | 2021-06-05 | LES_PTH ---
PATIENT: ZACHARY LEMA LOC: [facility] – [place] U#:[id number] AGE/SX: 85/M ROOM: RE06/05/[address]: Dr. Vishnu Falcon MD : [id number] BED: DIS: 06/05/2021 SPEC #: [id number] RECD: 06/05/21 09:38 STATUS: ULICES STEVENS #: [id number] KYLE: 06/05/21 00:[address]: Vishnu Falcon DEPT: SURGICAL PATHOLOGY RECD BY: Ayala Nuñez ENTERED: 06/05/21 10:16 SP TYPE: Lesion OTHR DR: Dr. Amrik Jacob MD Tissues: Skin of external ear, NOS Procedures: Frozen Section (charge) Frozen Section Add'l ([facility]) Surgery Specimen Level IV HEADER OPERATION: Excision ear lesion with skin graft, frozen section PRE-OP DIAGNOSIS: Lesion left ear TISSUE SUBMITTED: Conchal lesion left ear, frozen section FROZEN SECTION DIAGNOSIS Lesion, left ear, biopsy: Invasive squamous cell carcinoma, completely excised. 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 Actinic keratosis and solar elastosis. See comment. PAMELA:cristobal 06/06/2021 COMMENT The tumor measures 0.4 cm in greatest dimension. Perineural invasion is not seen. MICROSCOPIC DESCRIPTION Slides are reviewed. GROSS DESCRIPTION Received fresh for frozen section diagnosis labeled with the patient's name is a specimen designated lesion left ear. The specimen consists of a piece of tinajero-white skin measuring 1.2 x 1 cm and up to 0.3?cm in thickness. The specimen is oriented as follows: short suture - superior 12 o?clock, long suture??posterior 9 o?clock. The specimen is inked as follows: superior - yellow, inferior - green, anterior??black and posterior - blue. The specimen is serially sectioned and submitted entirely for frozen section diagnosis in two cassettes as follows: 1 - superior and inferior margins, 2 - rest of the specimen. / SJ:cristobal 06/05/21 TC:0 CPT: 67889, 45716, 08081
[2021-06-05] MEDS: Lactated Ringers 1,000 ML 100 ML IV (07:39)
--- NOTE | 2021-06-05 07:40 | SUR.PREOP ---
Patient has history of stroke; tunnel vision and left side neglect are baseline.
--- NOTE | 2021-06-05 09:00 | DS.PCM_ITS ---
Providers Primary Care Physician: Dr. Amrik Jacob MD Reason For Visit: EXC LESION LT EAR,SKIN GRAFT,FROZEN SECTION Medications at Discharge Home Medications alfuzosin 10 mg PO DAILY 10/02/20 amlodipine 5 mg tablet 5 mg PO DAILY 03/15/21 aspirin 81 mg tablet,delayed release 81 mg PO DAILY 03/15/21 atorvastatin 80 mg tablet 80 mg PO QHS 03/15/21 fluoxetine 20 mg capsule 20 mg PO DAILY 03/15/21 lisinopril 40 mg tablet 40 mg PO DAILY 03/15/21 cetirizine 10 mg capsule 10 mg PO DAILY PRN 03/18/21 dutasteride 0.5 mg capsule 0.5 mg PO DAILY cap 03/18/21 multivitamin 1 tab PO DAILY 03/18/21 Weight / BMI Weight Weight: 76.6 kg Body Mass Index (BMI) 24.9 ABG / Lab / Microbiology Data Result Diagrams: 05/30/21 14:01 05/30/21 14:01 D/C Instructions Discharge Diet: No restrictions May shower in (days): 2 Additional Activity Instructions: Remove dressings tomorrow morning. Keep the left ear cotton dry. May get the neck sutures wet on Wednesday. Meaningful Use Info Meaningful Use Diagnoses (Choose all that apply): None applicable Discharge Plan Admission Attending Provider: Vishnu Falcon Primary Care Provider: Amrik Jacob Discharge Orders/Prescriptions Prescriptions: No Action lisinopril 40 mg tablet 40 mg PO DAILY RF: 0 amlodipine 5 mg tablet 5 mg PO DAILY RF: 0 aspirin [Adult Aspirin Regimen] 81 mg tablet,delayed release (DR/EC) 81 mg PO DAILY RF: 0 atorvastatin 80 mg tablet 80 mg PO QHS RF: 0 fluoxetine 20 mg capsule 20 mg PO DAILY RF: 0 dutasteride 0.5 mg capsule 0.5 mg PO DAILY RF: 0 multivitamin Tablet 1 tab PO DAILY RF: 0 Zyrtec 10 mg capsule 10 mg PO DAILY PRN (Reason: ALLERGIES) RF: 0 alfuzosin 10 MG tablet extended release 24 hr 10 mg PO DAILY RF: 0 Other Ambulatory Orders: Basic Metabolic Profile (BMP) (Routine) Timeframe: 20210530 Facility: [facility] - Location: Laboratory Ordered By: Dr. Vishnu Falcon CBC-Complete Blood Cnt No Diff (Routine) Timeframe: 20210530 Facility: [facility] - Location: Laboratory Ordered By: Dr. Vishnu Falcon
[2021-06-05] MEDS: Lidocaine 1% /Epi 1:100 (20ml) 20 ML Vial (09:25)
--- NOTE | 2021-06-05 10:49 | OP.PCM_ITS ---
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 He was placed in the supine position on the operating table. He is given sufficient local MAC anesthesia. The left ear and neck was prepped and draped sterilely. 1% lidocaine with epinephrine was injected into the left ear and base of the left neck. After sufficient vasoconstriction and anesthesia the left conchal bowl ear lesion was excised with 5 mm margins circumferentially. Dissection was carried down to the perichondrium. The specimen was marked with a short stitch superiorly at 12:00 and a long stitch posteriorly at 9:00. This was sent for frozen section. Bipolar polar cautery was used for hemostasis. Eventually we heard that the lesion was completely excised. I then went to the neck and marked a an appropriate sized skin graft. This was harvested in an ellipse with a 15 blade. Hemostasis was achieved with bipolar cautery. I then undermined the skin and closed the skin with running 5-0 nylon. The graft was then thinned using scissors. I then placed this into the ear. It was sewn circumferentially with 6-0 fast-absorbing gut. Next I placed Xerform on the skin graft. I then placed a through and through bolster with a dental roll posteriorly and a tonsil ball anterior/medially for compression. 2-0 Prolene was used to sew this in place. I then placed a [place] dressing on the ear and the procedure was terminated patient. Patient was awoken and brought to the recovery room in stable condition. Blood loss minimal, replacement none. Sponge, needle, and instrument count were correct at the end of procedure.
== END 2021-06-05 12:30 | disposition home or self-care (01) ==
LOC: SDC 07:01 → AC 07:02
PROVIDERS: PCP Family Medicine; Referring Provider Otolaryngology; Visit Provider Otolaryngology
PROC: (CPT 11643; principal; 2021-06-05 08:05)
DX: C44.219 Basal cell carcinoma of skin of left ear and external auricular canal (principal); L57.0 Actinic keratosis; L57.8 Other skin changes due to chronic exposure to nonionizing radiation; I10 Essential (primary) hypertension; E78.00 Pure hypercholesterolemia, unspecified; Z79.82 Long term (current) use of aspirin; Z79.899 Other long term (current) drug therapy; Z87.891 Personal history of nicotine dependence; Z86.73 Personal history of transient ischemic attack (TIA), and cerebral infarction without residual deficits
CPT/HCPCS: 00300; 11643; 15260; 36415; 80048; 85027; 88305; 88331; 88332; 93005; J7120; J2405

== ENCOUNTER 2021-06-25 15:57 | Emergency (ER) | payer MEDICARE, SELFPAY ==
[2021-06-25 15:57] VITALS: BP 139/88; PULSE 103; RESP 16; TEMP 36.3; O2SAT 99; BMI 24.3
--- NOTE | 2021-06-25 16:14 | CT_ITS ---
STUDY: CT THORACIC SPINE WITHOUT CONTRAST REASON FOR EXAM: Male, 85 years old. Alternate. Trauma to the right forehead. No loss of consciousness. RADIATION DOSAGE (If Supplied By Facility): CTDIvol = ( 21.15 ) mGy, DLP = ( 3159.00 ) mGycm TECHNIQUE: The patient was scanned in a multi detector CT scanner. High resolution imaging was performed. Images were obtained from C7 to L1. Sagittal and coronal images were reconstructed. Individualized dose optimization techniques were used for this CT. COMPARISON: CT of the cervical spine, 06/25/2021. FINDINGS: Normal visualized cervical spine. Normal kyphosis of the thoracic spine. There is no substantial scoliosis. Scattered levels of endplate spondylosis with disc space narrowing. There is no evidence of acute fracture or loss of vertebral axial height. There is no visualized spinal stenosis or neural foraminal narrowing. Calcified granulomata are seen in the left hilum. CT/Spine Thoracic without Contras IMPRESSION: Mild degenerative changes of the thoracic spine without acute fracture or subluxation. Electronically Signed: Samuel Sousa DO at 17:03 EDT Tel [phone], Service support ,
--- NOTE | 2021-06-25 16:14 | CT_ITS ---
STUDY: CT CERVICAL SPINE WITHOUT CONTRAST REASON FOR EXAM: Male, 85 years old. Today. Hitting right jossie. No loss of consciousness. RADIATION DOSAGE (If Supplied By Facility): CTDIvol = ( 21.15 ) mGy, DLP = ( 3159.00 ) mGycm TECHNIQUE: High resolution transaxial imaging was performed without contrast material. Sagittal and coronal images were reconstructed. Individualized dose optimization techniques were used for this CT. COMPARISON: 01/15/2021. FINDINGS: Normal craniovertebral junction. There are degenerative changes of the anterior atlantoaxial articulation. Normal odontoid process. There is straightening of the normal cervical lordosis. Normal vertebral bodies and posterior osseous elements. C2-3: Normal endplates. Normal disc height and morphology. Facet joint degenerative change. Normal central canal. Narrowing of the left intervertebral neuroforamen. C3-4: Minimal endplate spondylosis. Slight loss of disc height. Facet joint degenerative change. Normal central canal. Narrowing of the intervertebral neuroforamina, right greater than left.. C4-5: End plate spondylosis. Marked loss of disc height. Facet and uncovertebral joint degenerative change. Normal central canal. Narrowing of the bilateral intervertebral neuroforamina, right greater than left. C5-6: Endplate spondylosis. Marked loss of disc height. Facet no occult vertebral joint degenerative change. Mild stenosis of the central canal and narrowing of the bilateral intervertebral neuroforamina, right greater than left. C6-7: Endplate spondylosis. Marked loss of disc height. Facet no occult vertebral joint degenerative change. Mild stenosis of the central canal and narrowing of the bilateral intervertebral neuroforamina, right greater than left. C7-T1: Normal endplates. Normal disc height and morphology. Facet joint degenerative change. Normal central canal and intervertebral neuroforamina. Normal visualized soft tissue structures. CT/Spine Cervical without Contras IMPRESSION: Degenerative changes of cervical spine without acute fracture or subluxation. No major interval change when compared to the previous examination. Note: MRI is more sensitive than CT in detecting cord injury, ligamentous injury and epidural hematoma. If there is continued clinical concern for any of these entities, MRI should be considered. Electronically Signed: Samuel Sousa DO at 17:02 EDT Tel [phone], Service support ,
--- NOTE | 2021-06-25 16:33 | CT_ITS ---
STUDY: CT BRAIN WITHOUT CONTRAST REASON FOR EXAM: Male, 85 years old. Fall. RADIATION DOSAGE (If Supplied By Facility): CTDIvol = ( 21.15 ) mGy, DLP = ( 3159.00 ) mGycm TECHNIQUE: Transaxial CT imaging of the brain was performed without administration of intravenous contrast material. Individualized dose optimization techniques were used for this CT. COMPARISON: 01/15/2021. FINDINGS: Normal soft tissue structures. Normal calvarium. There is mild cerebral atrophy with widening of the extra-axial spaces and ventricular dilatation. Normal white matter tracts of the cerebral hemispheres. There is a large area of encephalomalacia in the right occipital lobe with ex vacuo dilatation of the occipital horn of the right lateral ventricle consistent with remote infarct. Normal basal ganglia and thalami. Normal brainstem. Normal cerebellum. There is no intracranial hemorrhage. There are no findings of an acute ischemic infarction. Normal visualized paranasal sinuses. CT/Brain/Head without Contrast IMPRESSION: 1. Chronic involutional changes without acute intracranial or calvarial abnormality. 2. Remote right occipital lobe infarct unchanged from prior study. Electronically Signed: Samuel Sousa DO at 16:58 EDT Tel [phone], Service support ,
--- NOTE | 2021-06-25 19:54 | ED.VIS.FALL ---
HPI HPI - Fall History of Present Illness Chief Complaint: Fall Informant: patient and spouse/S.O. Occured/Mechanism Occurred: Today Mechanism/Context: Yes same level fall and Yes slip Usually ambulates: Walker Pain/Injury Pain Location: head, neck and back Quality of Pain: Throbbing Worsened by: Turning his head Relieved by: Nothing Associated Symptoms Associated Symptoms: Negative for Parasthesias, Weakness, Loss of function, Inability to ambulate and Loss of consciousness Narrative Narrative: Patient presents after a fall that occurred today. Patient states he slipped while walking at the [facility]. Patient states he was going down an incline with his walker when he slipped and fell. Patient had some difficulty getting up because he fell underneath of a truck that was parked. Patient states somebody helped him get up and he was able to ambulate after the fall. Patient denies any loss of consciousness. Patient denies any paresthesias or weakness. Patient states his pain is localized to the right side of his head, his neck, and upper back. Patient denies any other injuries. 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) Hypertension Left arm weakness Loss of peripheral visual field Walker as ambulation aid Wears glasses Wears hearing aid Home Medications alfuzosin 10 mg PO DAILY 10/02/20 [History Last Taken 10/02/20] amlodipine 5 mg tablet 5 mg PO DAILY 03/15/21 [History Last Taken 06/04/21 19:00] aspirin 81 mg tablet,delayed release 81 mg PO DAILY 03/15/21 [History Last Taken Unknown] atorvastatin 80 mg tablet 80 mg PO QHS 03/15/21 [History Last Taken Unknown] fluoxetine 20 mg capsule 20 mg PO DAILY 03/15/21 [History Last Taken Unknown] lisinopril 40 mg tablet 40 mg PO DAILY 03/15/21 [History Last Taken 06/05/21 06:15] cetirizine 10 mg capsule 10 mg PO DAILY PRN 03/18/21 [History Last Taken Unknown] dutasteride 0.5 mg capsule 0.5 mg PO DAILY cap 03/18/21 [History Last Taken Unknown] multivitamin 1 tab PO DAILY 03/18/21 [History Last Taken Unknown] Allergy/AdvReac Type Severity Reaction Status Date / Time lactic acid [From Lac-Hydrin] Allergy Rash Verified 06/05/21 07:29 Penicillins Allergy Unknown Verified 06/05/21 07:29 Surgical History H/O basal cell carcinoma excision Social History Smoking Status: Former smoker ROS ROS ED Constitutional Constitutional ED: Denies chills or fever(s) Eyes Eyes: Denies blurry vision or change in vision ENT ENT ED: Denies rhinorrhea or sore throat Cardiovascular Cardiovascular: Denies chest pain or palpitations Respiratory/Chest Respiratory/Chest: Denies cough or dyspnea Gastrointestinal Gastrointestinal: Denies nausea or vomiting Genitourinary Genitourinary ED: Denies dysuria or hematuria Musculoskeletal Musculoskeletal: Reports back pain and neck pain Integumentary Denies abscess or rash Neurologic Neurologic: Reports headache(s); Denies weakness Allergic/Immunologic Allergic/Immunologic ED: Denies mouth swelling or urticaria EXAM Physical Exam Const Vital Signs: 06/25/21 15:57 06/25/21 18:13 Temperature 97.4 F L Temperature Source Temporal Pulse Rate 103 H Respiratory Rate 16 Respiratory Effort Normal Non-Labored Respiratory Depth Normal Respiratory Pattern Normal Blood Pressure 139/88 H Blood Pressure Mean 105 Pulse Ox 99 Oxygen Delivery Method Room Air Room Air Positive well nourished and well developed General Appearance ED: well developed HEENT Reports normocephalic atraumatic Neck Neck Narrative: There is tenderness over the cervical paraspinal muscles. There is some mild midline tenderness. There is no bony crepitance or step-off noted. Range of motion was limited in all motions of the cervical spine secondary to pain. General: tenderness Chest Wall inspection of chest normal and palpation of chest normal Resp normal respiratory effort and clear to auscultation bilaterally Cardio regular rate and regular rhythm Back/Spine Thoracic Spine / Upper Back: thoracic spinal tenderness T1, T2, T3 and T4 Extremity normal to inspection and full ROM Neuro oriented x3, CN's II-XII intact bilaterally, moves all extremities, no focal motor deficits and no sensory deficits noted Sensorium / Orientation: alert Psych mental status grossly normal and thought process normal MDM MDM MDM Narrative Medical decision making narrative: CT scan of the cervical spine was obtained. There are some degenerative changes noted. There is no acute fracture or subluxation. This was interpreted by the radiologist and reviewed by myself. CT scan of the thoracic spine was obtained. There are some mild degenerative changes but no acute fracture or subluxation. This was also interpreted by the radiologist and reviewed by myself. CT scan of the brain was obtained. There is an old right occipital lobe infarct which is unchanged from previous study. There are chronic changes but no acute intracranial bleeding or abnormality. This was also interpreted by the radiologist and reviewed by myself. Patient was given head injury instructions. Patient was instructed to follow-up with his primary care physician in 5 to 7 days. Patient understood and was agreeable with the plan. All questions were answered. Radiography Diagnostic Testing: Radiology Impression Cervical Spine CT 06/25/21 16:14 IMPRESSION: Degenerative changes of cervical spine without acute fracture or subluxation. No major interval change when compared to the previous examination. Note: MRI is more sensitive than CT in detecting cord injury, ligamentous injury and epidural hematoma. If there is continued clinical concern for any of these entities, MRI should be considered. Electronically Signed: Samuel Sousa DO at 17:02 EDT Tel [phone], Service support , Thoracic Spine CT 06/25/21 16:14 IMPRESSION: Mild degenerative changes of the thoracic spine without acute fracture or subluxation. Electronically Signed: Samuel Sousa DO at 17:03 EDT Tel [phone], Service support , Brain CT 06/25/21 16:33 IMPRESSION: 1. Chronic involutional changes without acute intracranial or calvarial abnormality. 2. Remote right occipital lobe infarct unchanged from prior study. Electronically Signed: Samuel Sousa DO at 16:58 EDT Tel [phone], Service support , Discharge Plan Triage Chief Complaint: Fall ED Provider: Álvaro Ramey Dx/Rx/DC Orders Clinical Impression: Closed head injury, Acute cervical myofascial strain Instructions: ED Head Injury (Adult), ED Neck Sprain or Strain Prescriptions: No Action lisinopril 40 mg tablet 40 mg PO DAILY RF: 0 amlodipine 5 mg tablet 5 mg PO DAILY RF: 0 aspirin [Adult Aspirin Regimen] 81 mg tablet,delayed release (DR/EC) 81 mg PO DAILY RF: 0 atorvastatin 80 mg tablet 80 mg PO QHS RF: 0 fluoxetine 20 mg capsule 20 mg PO DAILY RF: 0 dutasteride 0.5 mg capsule 0.5 mg PO DAILY RF: 0 multivitamin Tablet 1 tab PO DAILY RF: 0 Zyrtec 10 mg capsule 10 mg PO DAILY PRN (Reason: ALLERGIES) RF: 0 alfuzosin 10 MG tablet extended release 24 hr 10 mg PO DAILY RF: 0 Primary Care Provider: Amrik Jacob Referrals: Amrik Jacob MD [Primary Care Provider] - 5-7 Days Disposition Disposition: Home, Self Care Discharge Date/Time: 06/25/21 18:14
== END 2021-06-25 18:14 | disposition home or self-care (01) ==
PROVIDERS: Emergency Provider Emergency Medicine; PCP Family Medicine
DX: S09.90XA Unspecified injury of head, initial encounter (principal); S16.1XXA Strain of muscle, fascia and tendon at neck level, initial encounter; W01.0XXA Fall on same level from slipping, tripping and stumbling without subsequent striking against object, initial encounter; Y93.01 Activity, walking, marching and hiking; Y92.838 Other recreation area as the place of occurrence of the external cause; Y99.8 Other external cause status; I10 Essential (primary) hypertension; E78.00 Pure hypercholesterolemia, unspecified; Z79.82 Long term (current) use of aspirin; Z79.899 Other long term (current) drug therapy; Z87.891 Personal history of nicotine dependence; Z86.73 Personal history of transient ischemic attack (TIA), and cerebral infarction without residual deficits
CPT/HCPCS: 70450; 72125; 72128; 99282

== ENCOUNTER 2022-03-20 19:27 | Inpatient (IN) | payer MEDICARE, SELFPAY ==
[2022-03-20 19:28] VITALS: BP 151/105; PULSE 112; RESP 18; TEMP 36.8; O2SAT 97; BMI 25.0
--- NOTE | 2022-03-20 19:58 | EKG12_ITS ---
Test Reason : DYSRHYTHMIA Blood Pressure : / mmHG Vent. Rate : 101 BPM Atrial Rate : 101 BPM P-R Int : 226 ms QRS Dur : 106 ms QT Int : 340 ms P-R-T Axes : 039 -07 059 degrees QTc Int : 440 ms Sinus tachycardia with 1st degree A-V block Incomplete left bundle branch block Borderline ECG Confirmed by INDERJIT HERNANDEZ, GENI ([id number]), advertising editor CONSUELO WALSH ([id number]) on 03/23/2022 10:51:04 AM Referred By: LETICIA Confirmed By:GENI JANSEN MD
[2022-03-20 20:21] LABS: Bacteria 0 SEEN /hpf (None Seen); Mucous, Urine 0 SEEN /hpf (<or=2+); Red Blood Cells-Urine 0 SEEN /hpf (0-5); Squamous Epithelial Cells - UA 0 SEEN /hpf (0-5); White Blood Cells 0 SEEN /hpf (0-5)
[2022-03-20 20:22] LABS: Absolute Lymphocyte Count 1.35 X10^3/uL (0.83-4.51); Absolute Neutrophil Count 12.6 X10^3/uL (2.0-7.7); Basophil# 0.04 X10^3/uL; Basophil% 0.2 % (0-1); Eosinophil# 0.06 X10^3/uL; Eosinophils% 0.4 % (0-5); Hematocrit 40.3 % (40-54); Hemoglobin 13.6 g/dL (13.0-16.5); Lymphocyte # 1.35 X10^3/ul (0.83-4.51); Lymphocyte % 8.4 % (19-41); Mean Corp Hgb Conc 33.7 g/dL (32-36); Mean Corpuscular Hgb 29.8 pg (27.0-32.0); Mean Corpuscular Volume 88.4 fL (80-94); Mean Platelet Vol. 11.3 fl (6.2-12.0); Monocyte# 1.98 X10^3/uL; Monocyte% 12.3 % (0-10); NRBC Flagged by Analyzer 0 % (0-5); Neutrophil # 12.63 X10^3/uL (2.7-7.7); Neutrophil % 78.2 % (47-70); POSITIVE DIFFERENTIAL YES; Platelet Count 236 K/mm3 (150-450); RBC Distribution Width CV 13.3 % (11.6-14.6); RBC Distribution Width SD 43.5 fl (35.1-43.9); Red Blood Count 4.56 M/mm3 (4.6-6.2); White Blood Count 16.1 K/mm3 (4.4-11.0)
[2022-03-20 20:23] LABS: Color, Urine Yellow (Yellow); Glucose, Dipstick 1000 mg/dl (Normal); Ketone-Dipstick Negative (Negative); Leukocyte Esterase-Dipstick Negative /ul (Negative); Nitrite-Dipstick Negative (Negative); Occult Blood-Urine 10 /ul (Negative); Protein-Dipstick 30 mg/dl (Negative); Urine Bilirubin Dipstick Negative (Negative); Urine Clarity Clear (Clear); Urine Urobilinogen Normal (Normal)
[2022-03-20 20:40] LABS: AST(SGOT) 12 U/L (15-37); Alanine Aminotransfer ALT/SGPT 31 U/L (16-61); Albumin, Serum 3.5 g/dL (3.2-5.0); Alkaline Phosphatase 61 U/L (45-117); Anion Gap 7 (5-15); BUN 12 mg/dL (7-18); BUN/Creat Ratio 13.1 RATIO (10-20); Bilirubin, Direct 0.27 mg/dL (0.00-0.30); Calcium,Total 9.3 mg/dL (8.5-10.1); Chloride 103 mmol/L (98-107); Creatinine, Serum 0.92 mg/dL (0.70-1.30); EST Glomerular Filtration Rate 83 mL/min (>60); Est Glom Filt Rate - Afr Amer 100 mL/min (>60); Estimated Creatinine Clearance 55.76 ml/min; Glucose 260 mg/dL (74-106); Lipase 1296 U/L (73-393); Protein, Total 7.5 g/dL (6.4-8.2); Sodium Level 134 mmol/L (136-145); Troponin-I HS < 3 pg/mL (3.0-78.0)
[2022-03-20 20:53] LABS: Differential Indicated SCAN CRITERIA MET
[2022-03-20 21:10] LABS: Anisocytosis RARE; Platelet Estimate ADEQUATE (ADEQ); Red Cell Morphology N CHROM NORMAL (NORM C&C)
--- NOTE | 2022-03-20 21:18 | US_ITS ---
STUDY: ABDOMINAL ULTRASOUND - RIGHT UPPER QUADRANT REASON FOR VISIT: Male, 86 years old pancreatitis TECHNIQUE: Ultrasound evaluation of the right upper quadrant was performed with real-time and static dale-scale imaging. TECHNICAL QUALITY: Limited COMPARISON: None. FINDINGS: Liver: The liver measures 17.0 cm. Diffusely increased echogenicity obscuring the periportal fat and decreasing soundwaves penetration hepatic steatosis. Bile ducts are not well visualized. Gallbladder: Gallbladder is not well-visualized. This may be due to both decreased sound penetration through the fatty liver as well as possible contraction versus debris within the gallbladder. Common Bile Duct (C.B.D.): The common bile duct measures 4 mm. Pancreas is suboptimally visualized due to overlying bowel gas. No abnormality suggested. Right Kidney: 10.4 cm in length with no cortical thinning or suspicious mass lesion. Subcentimeter renal cyst, previously measuring 5.1 cm, is anechoic with no suspicious solid component. US/Abdomen Limited IMPRESSION: Significant hepatic steatosis with decreased sound wave penetration. Very limited exam with the gallbladder not clearly identified. This may be due to contracted gallbladder and/or isoechoic debris within the gallbladder. There is decreased sound penetration through the fatty liver also limiting assessment. Poorly visualized pancreas. 7 cm simple cyst right kidney. Electronically Signed: Stiven Díaz DO at 22:29 EDT ,
[2022-03-20 22:53] VITALS: RESP 16
--- NOTE | 2022-03-20 23:03 | EX.ED.DYSGE1 ---
HPI History of Present Illness Chief Complaint: Abd Pain Informant: patient and spouse/S.O. Onset/Context/Timing Onset: Days (3 days) Context: Gradual Onset Timing: Waxes and wanes Current Severity: Mild Maximum Severity: Moderate Narrative Narrative: Patient presents with a 3-day history of upper abdominal pain and nausea. He denies fever or chills. He denies chest pain or shortness of breath. 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) Hypertension Left arm weakness Loss of peripheral visual field Walker as ambulation aid Wears glasses Wears hearing aid Home Medications alfuzosin 10 mg PO DAILY 10/02/20 [History Last Taken 10/02/20] amlodipine 5 mg tablet 5 mg PO DAILY 03/15/21 [History Last Taken 06/04/21 19:00] atorvastatin 80 mg tablet 80 mg PO QHS 03/15/21 [History Last Taken Unknown] fluoxetine 20 mg capsule 20 mg PO DAILY 03/15/21 [History Last Taken Unknown] lisinopril 40 mg tablet 40 mg PO DAILY 03/15/21 [History Last Taken 06/05/21 06:15] cetirizine 10 mg capsule 10 mg PO DAILY PRN 03/18/21 [History Last Taken Unknown] dutasteride 0.5 mg capsule 0.5 mg PO DAILY cap 03/18/21 [History Last Taken Unknown] multivitamin 1 tab PO DAILY 03/18/21 [History Last Taken Unknown] metformin 500 mg tablet 1,000 mg PO DAILY tab 11/07/21 [History Last Taken Unknown] apixaban 5 mg tablet 5 mg PO BID #60 tab 11/13/21 [Rx Last Taken Unknown] Allergy/AdvReac Type Severity Reaction Status Date / Time lactic acid [From Lac-Hydrin] Allergy Rash Verified 03/20/22 19:30 Penicillins Allergy Unknown Verified 03/20/22 19:30 Surgical History H/O basal cell carcinoma excision Social History Smoking Status: Former smoker ROS ROS ED Constitutional Constitutional ED: Denies chills or fever(s) Eyes Eyes: Denies change in vision ENT ENT ED: Denies sore throat Cardiovascular Cardiovascular: Denies chest pain Respiratory/Chest Respiratory/Chest: Denies cough or dyspnea Gastrointestinal Gastrointestinal: Reports abdominal pain and nausea; Denies diarrhea or vomiting Genitourinary Genitourinary ED: Denies dysuria Musculoskeletal Musculoskeletal: Denies back pain or neck pain Integumentary Denies rash Neurologic Neurologic: Denies headache(s) or weakness Allergic/Immunologic Allergic/Immunologic ED: Denies urticaria EXAM Physical Exam Const Vital Signs: 03/20/22 19:28 03/20/22 22:53 Temperature 98.2 F Temperature Source Temporal Pulse Rate 112 H Respiratory Rate 18 16 Blood Pressure 151/105 H Blood Pressure Mean 120 Pulse Ox 97 Oxygen Delivery Method Room Air Positive well nourished and well developed General Appearance ED: well developed HEENT Reports moist mucous membranes Eyes PERRL and EOMs intact bilaterally Neck supple Chest Wall inspection of chest normal and palpation of chest normal Resp normal respiratory effort and clear to auscultation bilaterally Cardio regular rate and regular rhythm GI non-tender Palpation: soft and tender epigastric Extremity normal to inspection Neuro oriented x3 Sensorium / Orientation: alert Psych mental status grossly normal Skin no rashes or lesions noted MDM MDM MDM Narrative Medical decision making narrative: Patient declines anything for pain or nausea at this time. Lab work obtained. Lab Data Attestation: I reviewed the patient's lab results. Labs: Laboratory Results - last 24 hr 03/20/22 03/20/22 03/20/22 20:10 20:10 20:10 WBC 16.1 H RBC 4.56 L Hgb 13.6 Hct 40.3 MCV 88.4 MCH 29.8 MCHC 33.7 RDW Std Deviation 43.5 RDW Coeff of Rodney 13.3 Plt Count 236 MPV 11.3 Immature Gran % (Auto) 0.500 Neut % (Auto) 78.2 H Lymph % (Auto) 8.4 L Brewster % (Auto) 12.3 H Eos % (Auto) 0.4 Baso % (Auto) 0.2 Absolute Neuts (auto) 12.6 H Absolute Lymphs (auto) 1.35 Nucleated RBC % 0 Differential Comment SEE COMMENT Platelet Estimate ADEQUATE RBC Morphology N CHROM Anisocytosis RARE Sodium 134 L Potassium 4.0 Chloride 103 Carbon Dioxide 24.0 Anion Gap 7 BUN 12 Creatinine 0.92 Estim Creat Clear Calc 55.76 Est GFR (MDRD) Af Amer 100 Est GFR (MDRD) Non-Af 83 BUN/Creatinine Ratio 13.1 Glucose 260 H Calcium 9.3 Total Bilirubin 1.10 H Direct Bilirubin 0.27 AST 12 L ALT 31 Alkaline Phosphatase 61 Troponin I High Sens < 3 L Total Protein 7.5 Albumin 3.5 Globulin 4.0 Lipase 1296 H Urine Color Yellow Urine Clarity Clear Urine pH 6.0 Ur Specific [place] 1.020 Urine Protein 30 H Urine Glucose (UA) 1000 H Urine Ketones Negative Urine Occult Blood 10 H Urine Nitrite Negative Urine Bilirubin Negative Urine Urobilinogen Normal Ur Leukocyte Esterase Negative Urine RBC 0 SEEN Urine WBC 0 SEEN Ur Squamous Epith Cells 0 SEEN Urine Bacteria 0 SEEN Urine Mucus 0 SEEN Radiography Diagnostic Testing: Clinical Impression(s) from Imaging Studies Abdomen Ultrasound 03/20/22 21:18 IMPRESSION: Significant hepatic steatosis with decreased sound wave penetration. Very limited exam with the gallbladder not clearly identified. This may be due to contracted gallbladder and/or isoechoic debris within the gallbladder. There is decreased sound penetration through the fatty liver also limiting assessment. Poorly visualized pancreas. 7 cm simple cyst right kidney. Electronically Signed: Stiven Díaz DO at 22:29 EDT , Abdomen/Pelvis CT 03/20/22 23:06 IMPRESSION: Fatty replacement of the pancreas with no inflammatory changes. Incompletely visualized, anterior, right paramedial chest wall, near fluid density mass, lower sternum region. Please correlate clinically. Hepatic steatosis. Cholelithiasis without cholecystitis. Simple right renal cyst. Fell aortic atherosclerosis without aneurysmal dilation or stenosis. Mild prostate enlargement. Small bilateral fat filled inguinal hernias. Levoscoliotic curvature and degenerative facet arthropathy, disc and endplate changes with at least moderate central spinal canal stenosis at L3-L4. Electronically Signed: Stiven Díaz DO at 23:47 EDT , EKG Initial EKG: Attestation: I personally reviewed and interpreted this EKG as follows: Interpretation: Sinus Tachycardia (Sinus tach at 101 with no acute ischemia.) Treatment and Re-Evaluation Narrative: CBC was elevated white count at 16.1 with 78% neutrophils. Chemistry studies significant for a glucose of 260. LFTs unremarkable. Troponin normal. Lipase is elevated at 1296. Urinalysis normal. Patient sent for right upper quadrant ultrasound. Unfortunately there is poor visualization of the gallbladder. In light of this he was sent for a CT scan with IV contrast to ensure no gallstone causing the pancreatitis. CT scan reveals evidence of cholelithiasis without cholecystitis. No significant inflammatory changes noted to the pancreas. I do feel patient should be observed overnight for hydration and repeat lipase level. He is symptomatic with evidence of pancreatitis on his blood work. I will speak with the hospitalist. Discharge Plan Triage Chief Complaint: Abd Pain ED Provider: Maci Jauregui Dx/Rx/DC Orders Clinical Impression: Pancreatitis Prescriptions: No Action lisinopril 40 mg tablet 40 mg PO DAILY RF: 0 amlodipine 5 mg tablet 5 mg PO DAILY RF: 0 atorvastatin 80 mg tablet 80 mg PO QHS RF: 0 fluoxetine 20 mg capsule 20 mg PO DAILY RF: 0 dutasteride 0.5 mg capsule 0.5 mg PO DAILY RF: 0 multivitamin Tablet 1 tab PO DAILY RF: 0 Zyrtec 10 mg capsule 10 mg PO DAILY PRN (Reason: ALLERGIES) RF: 0 metformin 500 mg tablet 1,000 mg PO DAILY RF: 0 alfuzosin 10 MG tablet extended release 24 hr 10 mg PO DAILY RF: 0 Eliquis 5 mg tablet 5 mg PO BID Qty: 60 RF: 11 Primary Care Provider: Amrik Jacob Referrals: Amrik Jacob MD [Primary Care Provider] - Disposition Disposition: Acute Care Hospital [facility]
--- NOTE | 2022-03-20 23:06 | CT_ITS ---
INDICATION: pancreatitis EXAMINATION: CT ABDOMEN AND PELVIS WITH CONTRAST - CT Abdomen And Pelvis W/ Contrast Injection TECHNIQUE: Helically acquired images were obtained of the abdomen and pelvis following IV contrast. A radiation dose optimization technique was used for this scan. IV Contrast dosage and agent: 100 mL of [id number] Oral contrast: None. COMPARISON: CT abdomen and pelvis 11/22/2020 and chest x-ray 10/02/2020 FINDINGS: LOWER CHEST: Mild dependent atelectatic changes with no other airspace disease. No pleural effusion. Visualized base of the heart is normal size. Probable mitral valvular calcifications with limited assessment due to motion. There is a near fluid density mass, partially imaged, and the right para midline anterior chest. This could potentially represent a partially visualized breast implant. Please correlate with physical exam. LIVER: Diffusely decreased density suggesting hepatic steatosis. No focal mass. Normal contour and size. No perihepatic fluid. GALLBLADDER AND BILIARY TREE: There are 2 centrally lucent gallbladder stones, roughly 14 mm in diameter. No gallbladder distension or wall edema. No intra- or extrahepatic biliary ductal dilation. PANCREAS: Moderate fatty replacement. No mass or ductal dilation SPLEEN: Normal size without focal cystic or solid mass. ADRENAL GLANDS: No nodules. KIDNEYS, URETERS and BLADDER: Normal renal size and position. No suspicious mass. 54 x 71 mm simple, exophytic renal cyst, inferior pole right kidney. No hydronephrosis. Bladder is unremarkable. PERITONEUM: No ascites or free air. No other fluid collection. BOWEL: No evidence of acute appendicitis. No abnormally distended bowel loops or air fluid levels. No wall thickening or mass. No focal inflammatory changes. LYMPH NODES: No enlarged mesenteric or retroperitoneal lymph nodes. VESSELS: Aorta is non-dilated. Atherosclerosis and tortuosity. No stenosis. REPRODUCTIVE ORGANS: Mild prostate enlargement, 4.8 cm in diameter with some mass effect on the urinary bladder. ABDOMINAL WALL: Bilateral, small, fat filled inguinal hernias. BONES: Levoscoliotic curvature lumbar spine significant degenerative disc and endplate changes. This appears to be associated with at least moderate central spinal canal stenosis, most notably at L3-4 level. There is also multilevel facet arthropathy. No fracture. No lytic or blastic bone lesion. CT/Abdomen/Pelvis W IV Cont ONLY IMPRESSION: Fatty replacement of the pancreas with no inflammatory changes. Incompletely visualized, anterior, right paramedial chest wall, near fluid density mass, lower sternum region. Please correlate clinically. Hepatic steatosis. Cholelithiasis without cholecystitis. Simple right renal cyst. Fell aortic atherosclerosis without aneurysmal dilation or stenosis. Mild prostate enlargement. Small bilateral fat filled inguinal hernias. Levoscoliotic curvature and degenerative facet arthropathy, disc and endplate changes with at least moderate central spinal canal stenosis at L3-L4. Electronically Signed: Stiven Díaz DO at 23:47 EDT ,
[2022-03-20] MEDS: 0.9% Normal Saline 1,000 ML 150 ML IV (23:09)
[2022-03-21] VITALS (8 sets, daily range): BP systolic 123–140; BP diastolic 70–85; PULSE 74–96; RESP 16–18; TEMP 36.7–37.2; O2SAT 92–97; BMI 26.0
--- NOTE | 2022-03-21 00:15 | HP.PCM.HOS_ITS ---
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 Patient's pain is below his rib cage in a straight line fashion. The pain radiates to his back. He described the pain as a tightening and 'woozy'. He also described the pain as heartburn. He denies any ameliorating or aggravating factors to the pain. The pain is episodic. Severity of pain is 8 out of 10. At the time of evaluation at the emergency department patient denied any pain. Associated with symptoms is nausea without vomiting. He denies any constipation or diarrhea. He reports a chronic cough that he associates with postnasal drip. [facility] Medical History Acute ischemic stroke Ambulates with cane Basal cell carcinoma BPH (benign prostatic hyperplasia) Bruising Cancer Chronic back pain Cryptogenic stroke Dysarthria Easy bruising Essential (primary) hypertension Facial droop Former smoker High cholesterol History of ischemic right [employer] stroke (10/02/20) Hypertension Left arm weakness Loss of peripheral visual field Walker as ambulation aid Wears glasses Wears hearing aid Home Medications alfuzosin 10 mg PO DAILY 10/02/20 [History Last Taken 10/02/20] amlodipine 5 mg tablet 5 mg PO DAILY 03/15/21 [History Last Taken 06/04/21 19:00] atorvastatin 80 mg tablet 80 mg PO QHS 03/15/21 [History Last Taken Unknown] fluoxetine 20 mg capsule 20 mg PO DAILY 03/15/21 [History Last Taken Unknown] lisinopril 40 mg tablet 40 mg PO DAILY 03/15/21 [History Last Taken 06/05/21 06:15] cetirizine 10 mg capsule 10 mg PO DAILY PRN 03/18/21 [History Last Taken Unknown] dutasteride 0.5 mg capsule 0.5 mg PO DAILY cap 03/18/21 [History Last Taken Unknown] multivitamin 1 tab PO DAILY 03/18/21 [History Last Taken Unknown] metformin 500 mg tablet 1,000 mg PO DAILY tab 11/07/21 [History Last Taken Unknown] apixaban 5 mg tablet 5 mg PO BID #60 tab 11/13/21 [Rx Last Taken Unknown] Allergy/AdvReac Type Severity Reaction Status Date / Time lactic acid [From Lac-Hydrin] Allergy Rash Verified 03/20/22 19:30 Penicillins Allergy Unknown Verified 03/20/22 19:30 Surgical History H/O basal cell carcinoma excision Social History Smoking Status: Former smoker ROS ROS Narrative Pertinent positives and pertinent negatives as noted in HPI. All other systems were reviewed and are negative. Vital Signs Vital Signs Vital Signs: 03/20/22 19:28 03/20/22 22:53 03/21/22 00:04 Temperature 98.2 F 98.0 F Temperature Source Temporal Temporal Pulse Rate 112 H 96 Respiratory Rate 18 16 16 Blood Pressure 151/105 H 136/82 H Blood Pressure Mean 120 100 Pulse Ox 97 97 Oxygen Delivery Method Room Air Room Air 03/21/22 00:08 Temperature 98.0 F Temperature Source Temporal Pulse Rate 90 Respiratory Rate 18 Blood Pressure 136/82 H Blood Pressure Mean 100 Pulse Ox 97 Oxygen Delivery Method Room Air Weight Weight: 74.843 kg Body Mass Index (BMI) 25.0 Physical Exam Narrative Physical exam: General: Well-nourished, well-developed. Head: Normocephalic, atraumatic, no tenderness Eyes: Vision is grossly intact. EOMI ENT, no trauma, moist mucous membranes, no rhinorrhea Neck: Nontender, full range of motion. CVS: Regular rate and rhythm. S1-S2 present. No murmur, gallop or rub. Respiratory : clear to auscultation bilaterally, chest wall nontender, no wheezing Abdomen: Soft, nontender, nondistended, normal bowel sounds, no masses : Deferred Back: Nontender, no CVA tenderness, no midline spinal tenderness. Extremities: Nontender full range of motion, no trauma Skin: Normal color, no trauma, abrasions Neuro: Alert, oriented, cranial nerves II through XII grossly intact; except that patient is hard of hearing. Psychiatry: Normal mood. Normal affect. Not depressed. Not anxious. Results Lab / Micro Data Result Diagrams: 03/20/22 20:10 03/20/22 20:10 Labs: Laboratory Results - last 24 hr 03/20/22 20:10: WBC 16.1 H, RBC 4.56 L, Hgb 13.6, Hct 40.3, MCV 88.4, MCH 29.8, MCHC 33.7, RDW Std Deviation 43.5, RDW Coeff of Rodney 13.3, Plt Count 236, MPV 11.3, Immature Gran % (Auto) 0.500, Neut % (Auto) 78.2 H, Lymph % (Auto) 8.4 L, [place] % (Auto) 12.3 H, Eos % (Auto) 0.4, Baso % (Auto) 0.2, Absolute Neuts (auto) 12.6 H, Absolute Lymphs (auto) 1.35, Nucleated RBC % 0, Differential Comment SEE COMMENT, Platelet Estimate ADEQUATE, RBC Morphology N CHROM, Anisocytosis RARE 03/20/22 20:10: Sodium 134 L, Potassium 4.0, Chloride 103, Carbon Dioxide 24.0, Anion Gap 7, BUN 12, Creatinine 0.92, Estim Creat Clear Calc 55.76, Est GFR (MDRD) Af Amer 100, Est GFR (MDRD) Non-Af 83, BUN/Creatinine Ratio 13.1, Glucose 260 H, Calcium 9.3, Total Bilirubin 1.10 H, Direct Bilirubin 0.27, AST 12 L, ALT 31, Alkaline Phosphatase 61, Troponin I High Sens < 3 L, Total Protein 7.5, Albumin 3.5, Globulin 4.0, Lipase 1296 H 03/20/22 20:10: Urine Color Yellow, Urine Clarity Clear, Urine pH 6.0, Ur Specific [place] 1.020, Urine Protein 30 H, Urine Glucose (UA) 1000 H, Urine Ketones Negative, Urine Occult Blood 10 H, Urine Nitrite Negative, Urine Bilirubin Negative, Urine Urobilinogen Normal, Ur Leukocyte Esterase Negative, Urine RBC 0 SEEN, Urine WBC 0 SEEN, Ur Squamous Epith Cells 0 SEEN, Urine Bacteria 0 SEEN, Urine Mucus 0 SEEN Radiology Impression Abdomen Ultrasound 03/20/22 21:18 IMPRESSION: Significant hepatic steatosis with decreased sound wave penetration. Very limited exam with the gallbladder not clearly identified. This may be due to contracted gallbladder and/or isoechoic debris within the gallbladder. There is decreased sound penetration through the fatty liver also limiting assessment. Poorly visualized pancreas. 7 cm simple cyst right kidney. Electronically Signed: Stiven Díaz DO at 22:29 EDT , Abdomen/Pelvis CT 03/20/22 23:06 IMPRESSION: Fatty replacement of the pancreas with no inflammatory changes. Incompletely visualized, anterior, right paramedial chest wall, near fluid density mass, lower sternum region. Please correlate clinically. Hepatic steatosis. Cholelithiasis without cholecystitis. Simple right renal cyst. Fell aortic atherosclerosis without aneurysmal dilation or stenosis. Mild prostate enlargement. Small bilateral fat filled inguinal hernias. Levoscoliotic curvature and degenerative facet arthropathy, disc and endplate changes with at least moderate central spinal canal stenosis at L3-L4. Electronically Signed: Stiven Díaz DO at 23:47 EDT , Assessment & Plan Assessment/Plan (1) Pancreatitis: QUALIFIERS: Chronicity: acute Pancreatitis type: biliary Acute pancreatitis complication: no infection or necrosis Qualified Code(s): K85.10 - Biliary acute pancreatitis without necrosis or infection PLAN: Acute pancreatitis Likely gallstone pancreatitis Lipase level on presentation: 1296 Hematocrit on presentation: 40.3 BUN on presentation: 12 Received normal saline hydration at the emergency department. Lactated Ringer's at 100 ml/hr Pain regimen: Did not require any pain regimen at the ED. Morphine IV as needed ordered. Antiemetics: Zofran IV. Ordered Patient reports food does not affect his symptoms and he wants regular meal. Regular meal ordered. BMP showed calcium of normal calcium. Lipid levels ordered. Abdominal ultrasound showed decreased soundwave penetration and limited exams. But with significant hepatic steatosis. Abdomen/pelvis CT was visualized and independently interpreted. Gallstones seen. See with radiologist impression above. Patient drinks wine once in a while; denies alcoholism. Review of CBC showed white count of 16.1. Trend CMP showed total bilirubin of 1.10. Liver enzymes are unremarkable. EKG on presentation was reviewed. No ST or T wave abnormalities noted General surgery consult. Atrial fibrillation In the setting of history of CVA will continue Eliquis. Following surgical evaluation further decision can be made on Eliquis. Hypertension Blood pressure is not within goal Amlodipine and lisinopril continued. Trend blood pressure and adjust blood pressure medications. DVT prophylaxis: Home Eliquis continued. Charges/Coding Visit Charges OBSV E&M: 30153 Initial observation care L3
[2022-03-21 01:00] LABS: Cholesterol 97 mg/dL (200); High Density Lipoprotein 54 mg/dL; Triglycerides 62 mg/dL; Very Low Density Lipoprotein 12 mg/dL (5-40)
[2022-03-21] MEDS: Lactated Ringers 1,000 ML 100 ML IV (01:44)
[2022-03-21 06:05] LABS: Absolute Lymphocyte Count 1.62 X10^3/uL (0.83-4.51); Absolute Neutrophil Count 10.2 X10^3/uL (2.0-7.7); Basophil# 0.05 X10^3/uL; Basophil% 0.4 % (0-1); Eosinophil# 0.27 X10^3/uL; Hematocrit 39.4 % (40-54); Hemoglobin 13.1 g/dL (13.0-16.5); Lymphocyte # 1.62 X10^3/ul (0.83-4.51); Lymphocyte % 11.8 % (19-41); Mean Corp Hgb Conc 33.2 g/dL (32-36); Mean Corpuscular Hgb 30.2 pg (27.0-32.0); Mean Corpuscular Volume 90.8 fL (80-94); Mean Platelet Vol. 11.3 fl (6.2-12.0); Monocyte# 1.51 X10^3/uL; NRBC Flagged by Analyzer 0 % (0-5); Neutrophil # 10.17 X10^3/uL (2.7-7.7); Neutrophil % 74.2 % (47-70); POSITIVE DIFFERENTIAL YES; Platelet Count 224 K/mm3 (150-450); RBC Distribution Width CV 13.3 % (11.6-14.6); RBC Distribution Width SD 44.7 fl (35.1-43.9); Red Blood Count 4.34 M/mm3 (4.6-6.2); White Blood Count 13.7 K/mm3 (4.4-11.0)
[2022-03-21 06:33] LABS: ALB/GLOB Ratio 0.9 RATIO (0.9-2.4); AST(SGOT) 15 U/L (15-37); Alanine Aminotransfer ALT/SGPT 28 U/L (16-61); Albumin, Serum 3.2 g/dL (3.2-5.0); Alkaline Phosphatase 54 U/L (45-117); Anion Gap 4 (5-15); BUN 9 mg/dL (7-18); BUN/Creat Ratio 12.8 RATIO (10-20); Calcium,Total 8.7 mg/dL (8.5-10.1); Chloride 106 mmol/L (98-107); EST Glomerular Filtration Rate 113 mL/min (>60); Est Glom Filt Rate - Afr Amer 136 mL/min (>60); Globulin 3.7 g/dL (2.2-4.2); Glucose 130 mg/dL (74-106); Potassium 3.9 mmol/L (3.5-5.1); Protein, Total 6.9 g/dL (6.4-8.2); Sodium Level 138 mmol/L (136-145)
[2022-03-21 06:34] LABS: Differential Indicated SCAN CRITERIA MET
[2022-03-21 06:59] LABS: Differential Comment SCANNED
--- NOTE | 2022-03-21 07:30 | PCM.PN.HOSP ---
Subjective Subjective Follow-up for acute pancreatitis probably due to gallstone Abdominal pain is resolved. Patient was admitted late in the morning after 12 midnight. Patient eating breakfast. Objective Data Objective Data Vital Signs: Vital Signs Temp Pulse Resp BP Pulse Ox 98.8 F 78 18 139/85 H 92 03/21/22 06:42 03/21/22 06:42 03/21/22 06:42 03/21/22 06:42 03/21/22 06:42 Oxygen Delivery Method Room Air Weight: 171 lb 8.314 oz Body Mass Index (BMI) 26.0 Intake & Output: Intake and Output for Last 24 Hours 03/19/22 03/20/22 03/21/22 23:59 23:59 23:59 Output Total 400 / 400 Balance -400 / -400 Lab / Micro Data Result Diagrams: 03/21/22 05:32 03/21/22 05:32 Labs: Laboratory Results - last 24 hr 03/20/22 20:10: WBC 16.1 H, RBC 4.56 L, Hgb 13.6, Hct 40.3, MCV 88.4, MCH 29.8, MCHC 33.7, RDW Std Deviation 43.5, RDW Coeff of Rodney 13.3, Plt Count 236, MPV 11.3, Immature Gran % (Auto) 0.500, Neut % (Auto) 78.2 H, Lymph % (Auto) 8.4 L, [place] % (Auto) 12.3 H, Eos % (Auto) 0.4, Baso % (Auto) 0.2, Absolute Neuts (auto) 12.6 H, Absolute Lymphs (auto) 1.35, Nucleated RBC % 0, Differential Comment SEE COMMENT, Diff Path Review May foll, Platelet Estimate ADEQUATE, RBC Morphology N CHROM, Anisocytosis RARE 03/20/22 20:10: Sodium 134 L, Potassium 4.0, Chloride 103, Carbon Dioxide 24.0, Anion Gap 7, BUN 12, Creatinine 0.92, Estim Creat Clear Calc 55.76, Est GFR (MDRD) Af Amer 100, Est GFR (MDRD) Non-Af 83, BUN/Creatinine Ratio 13.1, Glucose 260 H, Calcium 9.3, Total Bilirubin 1.10 H, Direct Bilirubin 0.27, AST 12 L, ALT 31, Alkaline Phosphatase 61, Troponin I High Sens < 3 L, Total Protein 7.5, Albumin 3.5, Globulin 4.0, Lipase 1296 H 03/20/22 20:10: Urine Color Yellow, Urine Clarity Clear, Urine pH 6.0, Ur Specific [place] 1.020, Urine Protein 30 H, Urine Glucose (UA) 1000 H, Urine Ketones Negative, Urine Occult Blood 10 H, Urine Nitrite Negative, Urine Bilirubin Negative, Urine Urobilinogen Normal, Ur Leukocyte Esterase Negative, Urine RBC 0 SEEN, Urine WBC 0 SEEN, Ur Squamous Epith Cells 0 SEEN, Urine Bacteria 0 SEEN, Urine Mucus 0 SEEN 03/20/22 20:10: Triglycerides 62, Cholesterol 97, LDL Cholesterol 31, VLDL Cholesterol 12, HDL Cholesterol 54 03/21/22 05:32: WBC 13.7 H, RBC 4.34 L, Hgb 13.1, Hct 39.4 L, MCV 90.8, MCH 30.2, MCHC 33.2, RDW Std Deviation 44.7 H, RDW Coeff of Rodney 13.3, Plt Count 224, MPV 11.3, Immature Gran % (Auto) 0.600, Neut % (Auto) 74.2 H, Lymph % (Auto) 11.8 L, [place] % (Auto) 11.0 H, Eos % (Auto) 2.0, Baso % (Auto) 0.4, Absolute Neuts (auto) 10.2 H, Absolute Lymphs (auto) 1.62, Nucleated RBC % 0, Differential Comment SCANNED, Diff Path Review February03/21/22 05:32: Sodium 138, Potassium 3.9, Chloride 106, Carbon Dioxide 28.0, Anion Gap 4 L, BUN 9, Creatinine 0.70, Estim Creat Clear Calc 51.30, Est GFR (MDRD) Af Amer 136, Est GFR (MDRD) Non-Af 113, BUN/Creatinine Ratio 12.8, Glucose 130 H, Calcium 8.7, Total Bilirubin 0.80, AST 15, ALT 28, Alkaline Phosphatase 54, Total Protein 6.9, Albumin 3.2, Globulin 3.7, Albumin/Globulin Ratio 0.9 Radiography Diagnostic Testing: Radiology Impression Abdomen Ultrasound 03/20/22 21:18 IMPRESSION: Significant hepatic steatosis with decreased sound wave penetration. Very limited exam with the gallbladder not clearly identified. This may be due to contracted gallbladder and/or isoechoic debris within the gallbladder. There is decreased sound penetration through the fatty liver also limiting assessment. Poorly visualized pancreas. 7 cm simple cyst right kidney. Abdomen/Pelvis CT 03/20/22 23:06 IMPRESSION: Fatty replacement of the pancreas with no inflammatory changes. Incompletely visualized, anterior, right paramedial chest wall, near fluid density mass, lower sternum region. Please correlate clinically. Hepatic steatosis. Cholelithiasis without cholecystitis. Simple right renal cyst. Fell aortic atherosclerosis without aneurysmal dilation or stenosis. Mild prostate enlargement. Small bilateral fat filled inguinal hernias. Levoscoliotic curvature and degenerative facet arthropathy, disc and endplate changes with at least moderate central spinal canal stenosis at L3-L4. Physical Exam Narrative General: Alert, Oriented x3, Cooperative HEENT: Atraumatic, PERRLA, EOMI, Normocephalic Oral: No Gingival or Mucosal Lesions/ Ulcerations Neck: Supple, No JVD, Negative Carotid Bruits Lungs: Air entry diminished in bilateral lung bases. No crepitation/rhonchi Cardiovascular: Regular rate, Regular Rhythm, Normal S1, Normal S2, No murmurs Abdomen: Soft, slight tenderness to deep palpation in RUQ. No guarding/rigidity bowel Sounds Present. No peripheral mass : No renal angle tenderness. No suprapubic tenderness. Extremities: No edema, Capillary Refill Less than 3 Seconds Skin: No rashes, No breakdown Musculoskeletal: No Tenderness to Palpation of Joints or Extremities Neurological: Cranial nerves II-XII grossly intact, DTR 2+/4 and Symmetrical, Neuro grossly intact Psych/Mental Status: Normal Affect, Appropriate. Assessment & Plan Assessment/Plan (1) Pancreatitis: QUALIFIERS: Acute pancreatitis complication: no infection or necrosis Chronicity: acute Pancreatitis type: biliary Qualified Code(s): K85.10 - Biliary acute pancreatitis without necrosis or infection PLAN: 1. Acute pancreatitis most likely due to gallstone, gallstone pancreatitis: Patient admitted to [facility] floor. Abdominal pain has resolved. Patient on regular diet. Lipase 296. BUN 12, hematocrit 40.3%. On IV fluid Ringer lactate. On pain medication. CT abdomen shows gallstones. Ultrasound abdomen was limited exam. Patient is able occasional drinking alcohol. Liver chemistry reviewed. Within normal limit. Total bilirubin 2.8. Fasting profile LDL 31, triglycerides 62. Discussed with the surgeon. Kelvin on hold. Plan for surgery possible on Wednesday or Wednesday. 2. Chronic atrial fibrillation currently Eliquis on hold. 3. Hypertension: It was elevated during admission. BP on acceptable limit. On amlodipine and lisinopril. DVT prophylaxis: Bilateral SCDs
[2022-03-21 08:00] LABS: Bedside Glucose 159 mg/dL (74-106)
[2022-03-21] MEDS: Multivitamins,Therapeutic Tablet 1 TABLET PO (08:21)
--- NOTE | 2022-03-21 09:20 | PCM.CONS.B ---
Consult Date of Consult: 03/21/22 Edilberto Mcdermott is a 86 year old male who presents with three day history of abdominal pain. He was brought to [facility] ED and was found to have gallstone pancreatitis. He states that he does not have any abdominal pain at this point in time. He has a history of CVA. ? ? PAST MEDICAL HISTORY ? Actinic Damage//Sun-Damaged Skin 07/14/2012 ? 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 Anemia, unspecified 05/01/2009 ? Hct 34.9% in 04-18, 37.7% in 05-19 (WBC 4.9, PLT 276) Iron 23, Ferritin 968, NL B12 and folate in 04-18: ACD LDH 370 in 04-18 Arleen colored urine with a TBR in serum of 1.88 in 04-18 CT abd/pelvis 04-18: liver/kidney cysts, splenomegaly and 2 small (5 mm), non-calc nodules at L lung base-repeat 6 mo SPEP negative in 04-18 HBsAg neg, Hep A positive, JUAN MIGUEL negative, HIV western blot negative in 04-18 ? Broken toe ? ? Hyperplasia of prostate ? ? Lumbago 10/14/2005 ? Pure hypercholesterolemia ? ? Unspecified essential hypertension ? ?? PAST SURGICAL HISTORY ? COLONOSCOPY FLX DX W/COLLJ SPEC WHEN PFRMD ? 04/09/09 ? PAST SURGICAL HISTORY OF ? ? ? lipoma, neck ? PAST SURGICAL HISTORY OF ? ? lumbar laminotomy ? FAMILY HISTORY ? Diabetes Father ? ? lung cancer/chf/starvation ? Diabetes Sister ? ? Diabetes Paternal Grandfather ? ? other (Melanoma [Other]) Mother ? ? ALLERGIES ? Lachydrin [Other] Rash ? Penicillins ? ? ? Current Medications ? pantoprazole DR (PROTONIX) 40 mg tablet Take 1 tablet by mouth daily before breakfast. Take on empty stomach, 1/2 hr before meal. ? FLUoxetine (PROZAC) 20 mg capsule Take 1 capsule by mouth once daily. ? glimepiride (AMARYL) 2 mg tablet take 1 tablet by mouth once daily with breakfast ? atorvastatin (LIPITOR) 80 mg tablet take 1 tablet by mouth once daily ? lisinopril (ZESTRIL, PRINIVIL) 40 mg tablet Take 1 tablet by mouth once daily. ? metFORMIN ER (GLUCOPHAGE XR) 500 mg 24 hr tablet Take 2 tablets by mouth with breakfast ? alfuzosin SR (UROXATRAL) 10 mg 24 hr tablet Take 1 tablet by mouth once daily. ? amLODIPine (NORVASC) 5 mg tablet Take 1 tablet by mouth once daily. ? betamethasone dipropionate, augmented (DIPROLENE) 0.05 % cream Dr. Bridger Lomax. Apply as needed for eczema. ? sildenafil (VIAGRA) 100 mg tablet Take one pill 30-60 minutes prior to sexual activity ? apixaban (ELIQUIS) 5 mg tab(s) Take 1 tablet by mouth twice daily. ? multivitamin tablet Take 1 tablet by mouth once daily. ? diphenhydrAMINE (BENADRYL) 25 mg capsule Take 1 capsule by mouth every 6 hours as needed. ? dutasteride (AVODART) 0.5 mg capsule Take 1 capsule by mouth once daily. ? No current facility-administered medications on file prior to visit. ? ? SOCIAL HISTORY ? Smoking status: Former Smoker ? ? Packs/day: 2.00 ? ? Years: 10.00 ? ? Pack years: 20.00 ? ? Types: Cigarettes ? ? Quit date: 10/11/1969 ? ? Years since quittin.4 ? Smokeless tobacco: Never Used Vaping Use ? Vaping Use: Never used Substance Use Topics ? Alcohol use: Yes ? ? Comment: ocass ? Drug use: Not on file ? ? REVIEW OF SYSTEMS: General - denies fevers HEENT - no acute infections/trauma Pulmonary - denies coughing up blood, denies shortness of breath Cardio - denies chest pain, ejection fraction 60-65% from [facility] Heme - on Eliquis Neuro- status post CVA PHYSICAL EXAMINATION: Vital signs in chart and reviewed by me. HEENT - no evidence of infection/trauma Lungs - normal inspiratory effort, no wheezing/rales noted Heart - normal heart sounds Abdomen - soft with slight tenderness to deep palpation of RUQ, but no peritoneal signs Extremities - no clubbing/cyanosis/edema Neuro - hard of hearing, non focal Psych - appropriate Lab/radiologist studies in chart and reviewed by me - WBC elevated at 13.7K with left shift, LFTs normal this morning (was elevated yesterday), US hard to visualize gallbladder, CT scan - shows two stones in gallbladder area IMPRESSION: gallstone pancreatitis - pancreatitis resolving PLAN: I have discussed the above with the patient and his who is present with him. I have offered discharge to follow up in clinic and plan for surgery as outpatient, given that he feels much improved. Or he may stay in the hospital to have surgery, when I can schedule it. They prefer to stay in the hospital. I have offered the patient the procedure of laparoscopic cholecystectomy, possible cholangiograms. I have explained the procedure to them I have counseled the patient as to the risks of the procedure, including but not limited to: infection, bleeding, injury to any blood vessels/nerves, scar tissue, injury to any intrabdominal organs, injury to kidney/ureters, injury to bowel/bladder, injury to the common bile duct/biliary tree, bile leakage, intraabdominal abscess/bleeding, hernias at incisional sites, wound infections, possible open procedure, complications of anesthesia, postoperative pneumonia/cardiac problems/blood clots etc. the patient understands. They agree to proceed. I will have to find surgery time to be able to do the above, it may be Wednesday or Wednesday afternoon. If possible - please hold Eliquis in anticipation for surgery. I have answered all questions to the patient?s satisfaction and the patient has no further questions. I have spent at least 50 minutes in face to face discussion with patient, review of the patient laboratory/radiologicat studies, review of patient's medical records from [facility], scheduling appropriate surgeries, and appropriate medical documentation.
[2022-03-21] MEDS: Tamsulosin HCl 0.4 MG Capsule PO (10:07)
[2022-03-21] MEDS: FLUoxetine 20 MG Capsule PO (10:08)
[2022-03-21] MEDS: Finasteride 5 MG Tablet PO (10:08)
[2022-03-21] MEDS: Lisinopril 40 MG Tablet PO (10:08)
--- NOTE | 2022-03-21 11:10 | CASEMGMT ---
ABBEY BOWER Face to Face with patient for initial transition planning/care coordination assessment. RN SATHISH introduced self and role at [facility]. Patient sitting in chair, alert and oriented, and daughter at bedside. Patient willing to participate in assessment and is able to answer all questions appropriately. Care providers, pharmacy, and demographics verified. Patient wishes to discharge home, denies need for home health at this time. Patient states he has no further needs or concerns at this time. CM to follow for discharge planning needs that may arise. PCP: Nidia Specialists: [facility]; Dami, product safety specialist; Galina, adjunct psychology professor Preferred Pharmacy: [facility] Insurance: [employer] [facility] Prescription Benefit: yes Living Will/HPOA: yes, Patti Mcdermott LNOK: , daughter Living Arrangements: Patient lives with in an apartment at [facility] with elevator. Patient is independent prior to hospitalization Transportation: DME/HHC: Patient has shower chair, raised toilet, cane, rollator, grab bars. Patient states he has been to [facility] in the past. Patient denies previous HHC. Disposition Plan: Patient to discharge home with family support and follow-up plans in place. Lucero LEYVA, RN, CM
[2022-03-21] MEDS: Insulin Lispro 100 UNIT/ML INSULN.PEN SC ×3 (11:39→21:30)
[2022-03-21 11:40] LABS: Bedside Glucose 263 mg/dL (74-106)
[2022-03-21 16:46] LABS: Bedside Glucose 184 mg/dL (74-106)
[2022-03-21] MEDS: Atorvastatin Calcium 80 MG Tablet PO (21:30)
[2022-03-21 21:51] LABS: Bedside Glucose 187 mg/dL (74-106)
[2022-03-22] VITALS (10 sets, daily range): BP systolic 128–147; BP diastolic 75–92; PULSE 80–102; RESP 16–18; TEMP 36.5–37.4; O2SAT 93–98
[2022-03-22 05:13] LABS: Absolute Lymphocyte Count 1.27 X10^3/uL (0.83-4.51); Absolute Neutrophil Count 7.1 X10^3/uL (2.0-7.7); Basophil# 0.06 X10^3/uL; Basophil% 0.6 % (0-1); Eosinophil# 0.29 X10^3/uL; Hematocrit 37.4 % (40-54); Hemoglobin 12.6 g/dL (13.0-16.5); Lymphocyte # 1.27 X10^3/ul (0.83-4.51); Mean Corp Hgb Conc 33.7 g/dL (32-36); Mean Corpuscular Hgb 30.4 pg (27.0-32.0); Mean Corpuscular Volume 90.3 fL (80-94); Mean Platelet Vol. 11.3 fl (6.2-12.0); Monocyte# 0.95 X10^3/uL; Monocyte% 9.8 % (0-10); NRBC Flagged by Analyzer 0 % (0-5); Neutrophil # 7.11 X10^3/uL (2.7-7.7); Platelet Count 218 K/mm3 (150-450); RBC Distribution Width CV 13.2 % (11.6-14.6); RBC Distribution Width SD 43.9 fl (35.1-43.9); Red Blood Count 4.14 M/mm3 (4.6-6.2); White Blood Count 9.7 K/mm3 (4.4-11.0)
[2022-03-22 05:35] LABS: ALB/GLOB Ratio 0.8 RATIO (0.9-2.4); AST(SGOT) 17 U/L (15-37); Alanine Aminotransfer ALT/SGPT 29 U/L (16-61); Albumin, Serum 2.9 g/dL (3.2-5.0); Alkaline Phosphatase 52 U/L (45-117); Anion Gap 5 (5-15); BUN 13 mg/dL (7-18); BUN/Creat Ratio 19.5 RATIO (10-20); Calcium,Total 8.5 mg/dL (8.5-10.1); Chloride 107 mmol/L (98-107); Creatinine, Serum 0.66 mg/dL (0.70-1.30); EST Glomerular Filtration Rate 120 mL/min (>60); Est Glom Filt Rate - Afr Amer 146 mL/min (>60); Globulin 3.6 g/dL (2.2-4.2); Glucose 176 mg/dL (74-106); Potassium 3.9 mmol/L (3.5-5.1); Protein, Total 6.5 g/dL (6.4-8.2); Sodium Level 138 mmol/L (136-145)
[2022-03-22] MEDS: Insulin Lispro 100 UNIT/ML INSULN.PEN SC ×4 (06:33→21:14)
[2022-03-22 06:40] LABS: Bedside Glucose 181 mg/dL (74-106)
--- NOTE | 2022-03-22 07:35 | PCM.PN.HOSP ---
Subjective Subjective Follow-up for gallstone pancreatitis. Patient does not have abdominal pain. Objective Data Objective Data Vital Signs: Vital Signs Temp Pulse Resp BP Pulse Ox 98 F 85 16 128/92 H 94 03/22/22 02:27 03/22/22 02:27 03/22/22 02:27 03/22/22 02:27 03/22/22 02:27 Oxygen Delivery Method Room Air Weight: 171 lb 8.314 oz Body Mass Index (BMI) 26.0 Intake & Output: Intake and Output for Last 24 Hours 03/20/22 03/21/22 03/22/22 23:59 23:59 23:59 Intake Total 3250 / 3250 550 / 550 Output Total 1000 / 1000 Balance 2250 / 2250 550 / 550 Lab / Micro Data Result Diagrams: 03/22/22 04:53 03/22/22 04:53 Labs: Laboratory Results - last 24 hr 03/21/22 06:49: POC Glucose 159 H 03/21/22 11:34: POC Glucose 263 H 03/21/22 16:39: POC Glucose 184 H 03/21/22 21:29: POC Glucose 187 H 03/22/22 04:53: WBC 9.7, RBC 4.14 L, Hgb 12.6 L, Hct 37.4 L, MCV 90.3, MCH 30.4, MCHC 33.7, RDW Std Deviation 43.9, RDW Coeff of Rodney 13.2, Plt Count 218, MPV 11.3, Immature Gran % (Auto) 0.600, Neut % (Auto) 73.0 H, Lymph % (Auto) 13.0 L, Garfield % (Auto) 9.8, Eos % (Auto) 3.0, Baso % (Auto) 0.6, Absolute Neuts (auto) 7.1, Absolute Lymphs (auto) 1.27, Nucleated RBC % 0 03/22/22 04:53: Sodium 138, Potassium 3.9, Chloride 107, Carbon Dioxide 26.0, Anion Gap 5, BUN 13, Creatinine 0.66 L, Estim Creat Clear Calc 51.30, Est GFR (MDRD) Af Amer 146, Est GFR (MDRD) Non-Af 120, BUN/Creatinine Ratio 19.5, Glucose 176 H, Calcium 8.5, Total Bilirubin 0.70, AST 17, ALT 29, Alkaline Phosphatase 52, Total Protein 6.5, Albumin 2.9 L, Globulin 3.6, Albumin/Globulin Ratio 0.8 L 03/22/22 06:32: POC Glucose 181 H Physical Exam Narrative Seen and examined. Patient had previous stroke in 2019 when he had mild blurry vision on the left visual field. Currently in sinus rhythm. General: Alert, Oriented x3, Cooperative HEENT: Atraumatic, PERRLA, EOMI, Normocephalic Oral: No Gingival or Mucosal Lesions/ Ulcerations Neck: Supple, No JVD, Negative Carotid Bruits Lungs: Air entry diminished in bilateral lung bases. No crepitation/rhonchi Cardiovascular: Regular rate, Regular Rhythm, Normal S1, Normal S2, No murmurs Abdomen: Soft, slight tenderness to deep palpation in RUQ. No guarding/rigidity bowel Sounds Present. No peripheral mass : No renal angle tenderness. No suprapubic tenderness. Extremities: No edema, Capillary Refill Less than 3 Seconds Skin: No rashes, No breakdown Musculoskeletal: No Tenderness to Palpation of Joints or Extremities Neurological: Cranial nerves II-XII grossly intact, DTR 2+/4 and Symmetrical, Neuro grossly intact Psych/Mental Status: Normal Affect, Appropriate. Assessment & Plan Assessment/Plan (1) Pancreatitis: QUALIFIERS: Acute pancreatitis complication: no infection or necrosis Chronicity: acute Pancreatitis type: biliary Qualified Code(s): K85.10 - Biliary acute pancreatitis without necrosis or infection PLAN: 1. Acute pancreatitis most likely due to gallstone, gallstone pancreatitis: Patient admitted to [facility] floor. Abdominal pain has resolved. Patient on regular diet. Lipase 296. BUN 12, hematocrit 40.3%. On IV fluid Ringer lactate. On pain medication. CT abdomen shows gallstones. Ultrasound abdomen was limited exam. Patient is able occasional drinking alcohol. Liver chemistry reviewed. Within normal limit. Total bilirubin 2.8. Fasting profile LDL 31, triglycerides 62. Discussed with the surgeon. Kelvin on hold. Plan for surgery possible on Wednesday or Wednesday. 03/22: Patient does not have abdominal pain. Total bilirubin, transaminases alkaline phosphatase normal. Calcium 8.5, BUN 13 and hematocrit 37.4%. If patient does get surgery done tomorrow, 03/23 that patient needs IV heparin drip as patient is high risk for thromboembolic complication/stroke with [id number] score of 5. N.p.o. past midnight 2. Chronic atrial fibrillation currently Eliquis on hold. 03/22: Twelve-lead EKG reviewed patient in sinus rhythm 101 bpm, QTC 340 ms. Monitor on telemetry. No cardiopulmonary complaints. 3. Hypertension: It was elevated during admission. BP on acceptable limit. On amlodipine and lisinopril. DVT prophylaxis: Bilateral SCDs Charges/Coding Visit Charges Inpatient E&M: 30634 Subs Hosp L2
[2022-03-22 07:49] LABS: Lipase 62 U/L (73-393)
[2022-03-22] MEDS: Tamsulosin HCl 0.4 MG Capsule PO (08:35)
[2022-03-22] MEDS: amLODIPine 5 MG Tablet PO (08:35)
[2022-03-22] MEDS: Multivitamins,Therapeutic Tablet 1 TABLET PO (08:35)
[2022-03-22] MEDS: Finasteride 5 MG Tablet PO (08:36)
[2022-03-22] MEDS: Lisinopril 40 MG Tablet PO (08:36)
[2022-03-22] MEDS: FLUoxetine 20 MG Capsule PO (08:36)
--- NOTE | 2022-03-22 11:59 | PN.SURG_ITS ---
Subjective Subjective patient denies abdominal pain Objective Data Objective Data Vital Signs: Vital Signs Temp Pulse Resp BP Pulse Ox 99.3 F H 88 16 139/75 H 93 03/22/22 08:30 03/22/22 10:59 03/22/22 08:30 03/22/22 08:30 03/22/22 10:27 Oxygen Delivery Method Room Air Weight: 77.8 kg Body Mass Index (BMI) 26.0 Intake & Output: Intake and Output for Last 24 Hours 03/20/22 03/21/22 03/22/22 23:59 23:59 23:59 Intake Total 3250 / 3250 550 / 550 Output Total 1000 / 1000 Balance 2250 / 2250 550 / 550 Lab / Micro Data Result Diagrams: 03/22/22 04:53 03/22/22 04:53 Labs: Laboratory Results - last 24 hr 03/21/22 16:39: POC Glucose 184 H 03/21/22 21:29: POC Glucose 187 H 03/22/22 04:53: WBC 9.7, RBC 4.14 L, Hgb 12.6 L, Hct 37.4 L, MCV 90.3, MCH 30.4, MCHC 33.7, RDW Std Deviation 43.9, RDW Coeff of Rodney 13.2, Plt Count 218, MPV 11.3, Immature Gran % (Auto) 0.600, Neut % (Auto) 73.0 H, Lymph % (Auto) 13.0 L, Carson % (Auto) 9.8, Eos % (Auto) 3.0, Baso % (Auto) 0.6, Absolute Neuts (auto) 7.1, Absolute Lymphs (auto) 1.27, Nucleated RBC % 0 03/22/22 04:53: Sodium 138, Potassium 3.9, Chloride 107, Carbon Dioxide 26.0, Anion Gap 5, BUN 13, Creatinine 0.66 L, Estim Creat Clear Calc 51.30, Est GFR (MDRD) Af Amer 146, Est GFR (MDRD) Non-Af 120, BUN/Creatinine Ratio 19.5, Gl ucose 176 H, Calcium 8.5, Total Bilirubin 0.70, AST 17, ALT 29, Alkaline Phosphatase 52, Total Protein 6.5, Albumin 2.9 L, Globulin 3.6, Albumin/Globulin Ratio 0.8 L 03/22/22 04:53: Lipase 62 L 03/22/22 06:32: POC Glucose 181 H Physical Exam Const alert Resp normal respiratory effort GI GI Narrative: abdomen is soft and benign Assessment & Plan Assessment/Plan (1) Cholelithiasis: PLAN: will plan for surgery on Wednesday pm or Wednesday pm, whenever OR has time available. will check tomorrow, since schedulers not in over the weekend
[2022-03-22 12:26] LABS: Bedside Glucose 295 mg/dL (74-106)
[2022-03-22 17:06] LABS: Bedside Glucose 240 mg/dL (74-106)
[2022-03-22] MEDS: Atorvastatin Calcium 80 MG Tablet PO (21:14)
[2022-03-22] MEDS: MELATONIN 10 MG TABLET PO (21:14)
[2022-03-23 00:06] LABS: Bedside Glucose 177 mg/dL (74-106)
[2022-03-23 02:40] VITALS: BP 135/82; PULSE 77; RESP 16; TEMP 36.9; O2SAT 96
[2022-03-23 04:54] LABS: Absolute Lymphocyte Count 1.43 X10^3/uL (0.83-4.51); Absolute Neutrophil Count 6.1 X10^3/uL (2.0-7.7); Basophil# 0.05 X10^3/uL; Basophil% 0.6 % (0-1); Eosinophil# 0.27 X10^3/uL; Eosinophils% 3.1 % (0-5); Hematocrit 37.3 % (40-54); Hemoglobin 12.5 g/dL (13.0-16.5); Lymphocyte # 1.43 X10^3/ul (0.83-4.51); Lymphocyte % 16.6 % (19-41); Mean Corp Hgb Conc 33.5 g/dL (32-36); Mean Corpuscular Volume 89.7 fL (80-94); Mean Platelet Vol. 11.1 fl (6.2-12.0); Monocyte# 0.79 X10^3/uL; Monocyte% 9.2 % (0-10); NRBC Flagged by Analyzer 0 % (0-5); Neutrophil # 6.05 X10^3/uL (2.7-7.7); Platelet Count 224 K/mm3 (150-450); RBC Distribution Width CV 13.2 % (11.6-14.6); RBC Distribution Width SD 43.5 fl (35.1-43.9); Red Blood Count 4.16 M/mm3 (4.6-6.2); White Blood Count 8.6 K/mm3 (4.4-11.0)
[2022-03-23 05:33] LABS: ALB/GLOB Ratio 0.8 RATIO (0.9-2.4); AST(SGOT) 25 U/L (15-37); Alanine Aminotransfer ALT/SGPT 39 U/L (16-61); Albumin, Serum 2.9 g/dL (3.2-5.0); Alkaline Phosphatase 57 U/L (45-117); Anion Gap 5 (5-15); BUN 14 mg/dL (7-18); BUN/Creat Ratio 18.1 RATIO (10-20); Calcium,Total 8.7 mg/dL (8.5-10.1); Chloride 107 mmol/L (98-107); Creatinine, Serum 0.77 mg/dL (0.70-1.30); EST Glomerular Filtration Rate 101 mL/min (>60); Est Glom Filt Rate - Afr Amer 122 mL/min (>60); Globulin 3.7 g/dL (2.2-4.2); Glucose 187 mg/dL (74-106); Potassium 4.1 mmol/L (3.5-5.1); Protein, Total 6.6 g/dL (6.4-8.2); Sodium Level 137 mmol/L (136-145)
[2022-03-23 06:00] VITALS: PULSE 66
[2022-03-23] MEDS: Insulin Lispro 100 UNIT/ML INSULN.PEN SC ×4 (06:30→21:15)
[2022-03-23 06:31] VITALS: BMI 26.0
[2022-03-23 06:51] LABS: Bedside Glucose 193 mg/dL (74-106)
[2022-03-23 08:01] VITALS: BP 131/84; PULSE 68; RESP 16; TEMP 36.9; O2SAT 94
[2022-03-23] MEDS: Tamsulosin HCl 0.4 MG Capsule PO (10:55)
[2022-03-23] MEDS: amLODIPine 5 MG Tablet PO (10:55)
[2022-03-23] MEDS: Multivitamins,Therapeutic Tablet 1 TABLET PO (10:55)
[2022-03-23] MEDS: Lisinopril 40 MG Tablet PO (10:56)
[2022-03-23] MEDS: Finasteride 5 MG Tablet PO (10:56)
[2022-03-23] MEDS: FLUoxetine 20 MG Capsule PO (10:56)
--- NOTE | 2022-03-23 11:39 | PCM.PN.SRG ---
Subjective Subjective Patient denies abdominal pain Objective Data Objective Data Vital Signs: Vital Signs Temp Pulse Resp BP Pulse Ox 98.5 F 68 16 131/84 H 94 03/23/22 08:01 03/23/22 08:01 03/23/22 08:01 03/23/22 08:01 03/23/22 08:01 Oxygen Delivery Method Room Air Weight: 77.8 kg Body Mass Index (BMI) 26.0 Intake & Output: Intake and Output for Last 24 Hours 03/21/22 03/22/22 03/23/22 23:59 23:59 23:59 Intake Total 3250 / 3250 1090 / 1090 Output Total 1000 / 1000 Balance 2250 / 2250 1090 / 1090 Lab / Micro Data Result Diagrams: 03/23/22 04:25 03/23/22 04:25 Labs: Laboratory Results - last 24 hr 03/22/22 11:21: POC Glucose 295 H 03/22/22 16:57: POC Glucose 240 H 03/22/22 21:12: POC Glucose 177 H 03/23/22 04:25: WBC 8.6, RBC 4.16 L, Hgb 12.5 L, Hct 37.3 L, MCV 89.7, MCH 30.0, MCHC 33.5, RDW Std Deviation 43.5, RDW Coeff of Rodney 13.2, Plt Count 224, MPV 11.1, Immature Gran % (Auto) 0.500, Neut % (Auto) 70.0, Lymph % (Auto) 16.6 L, [place] % (Auto) 9.2, Eos % (Auto) 3.1, Baso % (Auto) 0.6, Absolute Neuts (auto) 6.1, Absolute Lymphs (auto) 1.43, Nucleated RBC % 0 03/23/22 04:25: Sodium 137, Potassium 4.1, Chloride 107, Carbon Dioxide 25.0, Anion Gap 5, BUN 14, Creatinine 0.77, Estim Creat Clear Calc 51.30, Est GFR (MDRD) Af Amer 122, Est GFR (MDRD) Non-Af 101, BUN/Creatinine Ratio 18.1, Glucose 187 H, Calcium 8.7, Total Bilirubin 0.50, AST 25, ALT 39, Alkaline Phosphatase 57, Total Protein 6.6, Albumin 2.9 L, Globulin 3.7, Albumin/Globulin Ratio 0.8 L 03/23/22 06:28: POC Glucose 193 H Physical Exam Const alert and oriented x3 Resp normal respiratory effort GI GI Narrative: abdomen is soft and benign Assessment & Plan Assessment/Plan (1) Cholelithiasis: PLAN: Patient presented with gallstone pancreatitis. he has essentially been pain free since I saw him on Wednesday. I had offered patient to be discharged to home and then to be scheduled for laparoscopic cholecystectomy as an outpatient, but he deferred this. I told the patient and his that we will be awaiting an opening in the surgery schedule and my schedule to be able to do his surgery and this may extend to Wednesday or Wednesday afternoon. They had wanted to stay in the hospital as an inpatient - awaiting surgery. I contacted other surgeons to see if they were available to do this patient's surgery today, but were not available. I have posted this patient's surgery for tomorrow afternoon. I have once again explained the risks of surgery, including but not limited to: infection, bleeding, injury to any blood vessels/nerves, scar tissue, injury to any intrabdominal organs, injury to kidney/ureters, injury to bowel/bladder, injury to the common bile duct/biliary tree, bile leakage, intraabdominal abscess/bleeding, hernias at incisional sites, wound infections, possible open procedure, complications of anesthesia, postoperative pneumonia/cardiac problems/blood clots etc. the patient understands. He wishes to proceed. I have answered all questions to the patient?s satisfaction and the patient has no further questions.
[2022-03-23 11:55] LABS: Bedside Glucose 183 mg/dL (74-106)
[2022-03-23 12:58] LABS: Pathologist Review Reviewed
[2022-03-23 13:00] LABS: Pathologist Review Reviewed
[2022-03-23 14:56] VITALS: BP 135/61; PULSE 73; RESP 16; TEMP 36.9; O2SAT 92
--- NOTE | 2022-03-23 17:11 | PCM.PN.HOSP ---
Subjective Subjective Patient was seen and examined today, I talked briefly with general surgery, they are not able to get an operative time until tomorrow to perform a cholecystectomy. I talked to the patient and his about this today. Patient has no complaints of any abdominal pain at this time Objective Data Objective Data Vital Signs: Vital Signs Temp Pulse Resp BP Pulse Ox 98.4 F 73 16 135/61 H 92 03/23/22 14:56 03/23/22 14:56 03/23/22 14:56 03/23/22 14:56 03/23/22 14:56 Oxygen Delivery Method Room Air Weight: 77.8 kg Body Mass Index (BMI) 26.0 Intake & Output: Intake and Output for Last 24 Hours 03/21/22 03/22/22 03/23/22 23:59 23:59 23:59 Intake Total 3250 / 3250 1090 / 1090 Output Total 1000 / 1000 Balance 2250 / 2250 1090 / 1090 Lab / Micro Data Result Diagrams: 03/23/22 04:25 03/23/22 04:25 Labs: Laboratory Results - last 24 hr 03/20/22 20:10: Diff Path Review Reviewed 03/21/22 05:32: Diff Path Review Reviewed 03/22/22 21:12: POC Glucose 177 H 03/23/22 04:25: WBC 8.6, RBC 4.16 L, Hgb 12.5 L, Hct 37.3 L, MCV 89.7, MCH 30.0, MCHC 33.5, RDW Std Deviation 43.5, RDW Coeff of Rodney 13.2, Plt Count 224, MPV 11.1, Immature Gran % (Auto) 0.500, Neut % (Auto) 70.0, Lymph % (Auto) 16.6 L, Cannon % (Auto) 9.2, Eos % (Auto) 3.1, Baso % (Auto) 0.6, Absolute Neuts (auto) 6.1, Absolute Lymphs (auto) 1.43, Nucleated RBC % 0 03/23/22 04:25: Sodium 137, Potassium 4.1, Chloride 107, Carbon Dioxide 25.0, Anion Gap 5, BUN 14, Creatinine 0.77, Estim Creat Clear Calc 51.30, Est GFR (MDRD) Af Amer 122, Est GFR (MDRD) Non-Af 101, BUN/Creatinine Ratio 18.1, Glucose 187 H, Calcium 8.7, Total Bilirubin 0.50, AST 25, ALT 39, Alkaline Phosphatase 57, Total Protein 6.6, Albumin 2.9 L, Globulin 3.7, Albumin/Globulin Ratio 0.8 L 03/23/22 06:28: POC Glucose 193 H 03/23/22 11:04: POC Glucose 183 H Physical Exam Const alert, oriented x3, no apparent distress and average body habitus General Appearance: cooperative, well kempt and well developed Orientation / Consciousness: awake, oriented to person, oriented to place and oriented to time HEENT normocephalic, head/scalp atraumatic and moist oral mucous membranes Head and Scalp: normocephalic Eyes PERRL, EOMs intact bilaterally and conjunctivae normal Neck nuchal rigidity, supple, no JVD, thyroid normal and no carotid bruits General: trachea midline Resp normal respiratory effort, no retractions, no use of accessory muscles and clear to auscultation bilaterally Auscultation: Negative for rales, rhonchi or wheezes Cardio regular rate, regular rhythm, S1 normal heart sound, S2 normal heart sound, no murmurs, no rub and no gallops GI normal to inspection, nondistended, normoactive bowel sounds, soft to palpation, non-tender and non-distended Extremity no clubbing, cyanosis or edema Skin no rashes or lesions noted General Skin Exam: no breakdown Neuro oriented x3, CN's II-XII intact bilaterally, no focal motor deficits and no sensory deficits noted Sensorium / Orientation: awake and alert Speech: speech normal Psych affect normal Assessment & Plan Assessment/Plan (1) Pancreatitis: QUALIFIERS: Chronicity: acute Pancreatitis type: biliary Acute pancreatitis complication: no infection or necrosis Qualified Code(s): K85.10 - Biliary acute pancreatitis without necrosis or infection PLAN: 1. Gallstone pancreatitis-patient is currently asymptomatic at this time, he is scheduled for surgery tomorrow-it is a planned laparoscopic cholecystectomy. 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 #7 degenerative disc disease lumbar spine Charges/Coding Visit Charges Inpatient E&M: 46638 Subs Hosp L2
[2022-03-23 17:40] LABS: Bedside Glucose 247 mg/dL (74-106)
[2022-03-23 21:00] VITALS: BP 132/86; PULSE 73; RESP 18; TEMP 37; O2SAT 95
[2022-03-23] MEDS: Atorvastatin Calcium 80 MG Tablet PO (21:17)
[2022-03-23] MEDS: MELATONIN 10 MG TABLET PO (21:17)
[2022-03-23 21:30] LABS: Bedside Glucose 241 mg/dL (74-106)
[2022-03-24] VITALS (9 sets, daily range): BP systolic 118–148; BP diastolic 61–90; PULSE 71–95; RESP 14–18; TEMP 36.2–37.3; O2SAT 93–97; BMI 26.0; BMI 26.1
[2022-03-24 07:01] LABS: Bedside Glucose 217 mg/dL (74-106)
[2022-03-24] MEDS: Insulin Lispro 100 UNIT/ML INSULN.PEN SC ×3 (12:10→21:39)
[2022-03-24 12:15] LABS: Bedside Glucose 211 mg/dL (74-106)
[2022-03-24] MEDS: Lactated Ringers 1,000 ML 15 ML IV (12:53)
--- NOTE | 2022-03-24 13:30 | GALL_PTH ---
PATIENT: ZACHARY LEMA LOC: MS3 U#:[id number] AGE/SX: 86/M ROOM: NM318 RE03/21/[address]: Dr. Amrik Massey DO : 1935 BED: 1 DIS: 03/25/2022 SPEC #: [id number] RECD: 03/24/22 15:53 STATUS: ULICES RELiliana #: [id number] KYLE: 03/24/22 13:[address]: Isabell Capone DEPT: SURGICAL PATHOLOGY RECD BY: Cecilia Alvares ENTERED: 03/25/22 11:26 SP TYPE: GALLBLADDE OTHR DR: MD Dr. Isabell Stephenson MD Dr. Mark Elderbrock, MD Dr. Mark Tereletsky, DO Dr. Prakash Chand, MD Tissues: Gallbladder, NOS Procedures: Surgery Specimen Level III Comments: @ Ordering doctor for SUIII edited from to DR.LWANG Elliot LEHMAN at 03/25/22 1609 @ Submitting doctor edited from to DR.LWANG Elliot LEHMAN at 03/25/22 1609 HEADER OPERATION: Laparoscopic cholecystectomy with IOC PRE-OP DIAGNOSIS: Cholelithiasis TISSUE SUBMITTED: Gallbladder MICROSCOPIC DIAGNOSIS Gallbladder, cholecystectomy: Chronic cholecystitis and cholelithiasis. SJ:cristobal 03/26/2022 MICROSCOPIC DESCRIPTION Slides are reviewed. GROSS DESCRIPTION Received is one container labeled with the patient's name and designated gallbladder. The specimen consists of a gallbladder measuring 5.5 x 2.2 x 2 cm. The external surface is smooth and glistening. Focally, it is granular, hemorrhagic and contains cautery artifact. The lumen of the gallbladder contains greenish mucoid bile and multiple tinajero and yellow calculi and fragments of calculi ranging in size from <0.1 to 1.2 cm in greatest dimension. The mucosa is bile-stained and without any mass lesions. The gallbladder wall averages 0.2 cm in thickness and is free of mass lesions. Negotiations Director sections of the gallbladder and the cystic duct at margin of resection are submitted in one cassette. / AM:cristobal 03/25/2022 TC:3 CPT: 91479
[2022-03-24] MEDS: Clindamycin 900 MG/50 ML BAG 75 MG IV (13:54)
--- NOTE | 2022-03-24 14:08 | RAD_ITS ---
STUDY: INTRAOPERATIVE CHOLANGIOGRAM. REASON FOR EXAM: Male, 86 years old. PAIN FLUOROSCOPY TIME (if supplied): ( 2 seconds ) minutes/seconds. Single image was submitted. TECHNIQUE: Intraoperative cholangiogram was performed by the surgeon. Imaging was submitted. COMPARISON: None. FINDINGS: The visualized common bile duct is unremarkable. Free flow of contrast into the duodenum. RAD/Cholangiogram/ O R,Initial IMPRESSION: Free flow of contrast is seen into the duodenum. The common bile duct is unremarkable. Electronically Signed: Ashkan Siu MD at 15:09 EDT ,
[2022-03-24] MEDS: Lidocaine 1% /Epi 1:100 (20ml) 20 ML Vial (14:50)
--- NOTE | 2022-03-24 15:00 | OP.PCM_ITS ---
Report of Operation Date of Procedure: 03/24/22 Pre-Operative Diagnosis: cholelithiasis, episode of gallstone pancreatitis Post-Operative Diagnosis: same Surgery/Procedure Performed:: laparoscopic cholecystectomy with cholangiograms Description of Surgical Findings:: normal cholangiograms - good flow into duodenum Surgeon: Isabell Capone block feeder: Nanci Cano Type of Anesthesia: General Anesthesiologist: Danielle Cedillo Specimen's removed: gallbladder and contents Estimated Blood Loss (mL): < 10 ml Fluids Replaced: 950 ml RL Description of Procedure: After informed consent was given, the patient was brought to the Operating Room. Appropriate time out protocol was followed. The patient was placed in the supine position. The patient was then placed under general endotracheal anesthesia by the anesthesia provider. The abdomen was then prepped with a sterile surgical skin preparation and sterile surgical drapes were placed. An area superior to the umbilical dimple was grasped with penetrating clamps and the skin and subcutaneous tissues were infiltrated with ade anesthetic with epinephrine. A skin incision was then made with a 15 blade scalpel. The anterior abdominal wall was elevated and a Veress needle was carefully inserted into the intraabdominal cavity. It was checked to be in the proper position with a normal saline drop test. A CO2 pneumoperitoneum was then created. Once this was achieved, then the Veress needle was removed and an 11mm trocar was placed in its stead. A 10mm laparoscope was then inserted into the trocar and careful attention was directed to the intraabdominal contents. There was no evidence of injury to any intraabdominal organs from insertion of the Veress needle or the trocar. Under direct visualization, a 5mm subxiphoid trocar and two lateral 5mm right subcostal trocars were placed. The skin and subcutaneous tissues at these sites were infiltrated with local anesthetic with epinephrine prior to placement of these trocars. Attention was then directed to the right upper quadrant of the abdomen. Graspers were placed in the lateral trocars to grasp the distal aspect of the gallbladder and direct it cephalad and to grasp the gallbladder at Cantu?s pouch and direct it laterally. Dissection then began on the proximal gallbladder continuing down to the area of the triangle of Calot to bluntly dissect out the cystic duct. The neck of the gallbladder was identified and blunt dissection continued to dissect out a segment of the cystic duct. A clip was then placed on the neck of the gallbladder. A small ductotomy was then made. A Ranfac catheter was brought in through a separate skin incision and placed into the cystic duct. An intraoperative cholangiogram was performed under fluoroscopy. The xray revealed no lesions in the common bile duct, arborization of the biliary tree, and good flow into the duodenum. The Ranfac catheter was then removed and two clips were placed proximal to the ductotomy and the cystic duct was then transected. The cystic artery was visualized and bluntly isolated and then two clips were placed proximally and one clip distally and then it was transected between the proximal and distal clips. The gallbladder was then from the liver bed using electrocautery. Once from the liver bed, it was placed in an Endobag. It was brought out via the umbilical port. It was then forwarded to pathology for analysis. The liver bed was carefully examined. There was no evidence of bile leakage or bleeding. The cystic duct stump and cystic artery stump had their clips intact and there was no evidence of bile leakage or bleeding. The remainder of the abdomen was grossly normal. The CO2 was released and all trocars removed intact. The periumbilical fascia was approximated with a figu re-of-eight 0 vicryl suture. All skin incision were closed with 4-0 monocryl in a subdermal fashion. Cavilol and Steristrips were used to reinforce the skin closure. Sterile dressings were applied to all wounds. Sponge, needle and instrument count was verified and correct at time of skin closure. The patient was extubated and brought to the Recovery Room in stable condition. Complications none noted Admit VTE Documentation VTE Present on Admission: Yes VTE Mechan Device Prophylaxis: SCD's
[2022-03-24 15:41] LABS: Bedside Glucose 212 mg/dL (74-106)
--- NOTE | 2022-03-24 16:35 | PCM.PN.HOSP ---
Subjective Subjective Patient was seen and examined earlier this morning, he underwent a laparoscopic cholecystectomy today, I received word from general surgery that he could be discharged in the morning if he is medically stable. Objective Data Objective Data Vital Signs: Vital Signs Temp Pulse Resp BP Pulse Ox 98.0 F 87 16 139/75 H 97 03/24/22 16:15 03/24/22 16:15 03/24/22 16:15 03/24/22 16:15 03/24/22 16:15 Oxygen Flow Rate (L/min) 2 Oxygen Delivery Method Nasal Cannula Weight: 77.8 kg Body Mass Index (BMI) 26.0 Intake & Output: Intake and Output for Last 24 Hours 03/22/22 03/23/22 03/24/22 23:59 23:59 23:59 Intake Total 1090 / 1090 1050 / 1050 Output Total 0 / 0 Balance 1090 / 1090 1050 / 1050 Lab / Micro Data Result Diagrams: 03/23/22 04:25 03/23/22 04:25 Labs: Laboratory Results - last 24 hr 03/23/22 16:50: POC Glucose 247 H 03/23/22 21:14: POC Glucose 241 H 03/24/22 06:54: POC Glucose 217 H 03/24/22 12:09: POC Glucose 211 H 03/24/22 15:37: POC Glucose 212 H Radiography Diagnostic Testing: Radiology Impression Cholangiogram 03/24/22 14:08 IMPRESSION: Free flow of contrast is seen into the duodenum. The common bile duct is unremarkable. Electronically Signed: Ashkan Siu MD at 15:09 EDT , Rhythm Strip Rhythm Strip: Sinus Tach Physical Exam Const alert, oriented x3, no apparent distress and healthy appearing General Appearance: cooperative, well kempt and well developed Orientation / Consciousness: awake, oriented to person, oriented to place and oriented to time HEENT normocephalic, head/scalp atraumatic and moist oral mucous membranes Head and Scalp: normocephalic Eyes PERRL, EOMs intact bilaterally and conjunctivae normal Neck nuchal rigidity, supple, no JVD, thyroid normal and no carotid bruits General: trachea midline Resp normal respiratory effort, no retractions, no use of accessory muscles and clear to auscultation bilaterally Auscultation: Negative for rales, rhonchi or wheezes Cardio regular rate, regular rhythm, S1 normal heart sound, S2 normal heart sound, no murmurs, no rub and no gallops GI normal to inspection, nondistended, normoactive bowel sounds, soft to palpation, non-tender and non-distended Extremity no clubbing, cyanosis or edema Skin no rashes or lesions noted General Skin Exam: no breakdown Neuro oriented x3, CN's II-XII intact bilaterally, no focal motor deficits and no sensory deficits noted Sensorium / Orientation: awake and alert Speech: speech normal Psych affect normal Assessment & Plan Assessment/Plan (1) Pancreatitis: QUALIFIERS: Chronicity: acute Pancreatitis type: biliary Acute pancreatitis complication: no infection or necrosis Qualified Code(s): K85.10 - Biliary acute pancreatitis without necrosis or infection PLAN: 1. 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 #7 degenerative disc disease lumbar spine Charges/Coding Visit Charges Inpatient E&M: 48507 Subs Hosp L2
[2022-03-24] MEDS: Finasteride 5 MG Tablet PO (17:16)
[2022-03-24] MEDS: Tamsulosin HCl 0.4 MG Capsule PO (17:16)
[2022-03-24] MEDS: amLODIPine 5 MG Tablet PO (17:17)
[2022-03-24] MEDS: FLUoxetine 20 MG Capsule PO (17:17)
[2022-03-24] MEDS: Lisinopril 40 MG Tablet PO (17:17)
[2022-03-24] MEDS: BENZOCAINE/MENTHOL 1 LOZENGE MUCOUS MEM (21:39)
[2022-03-24] MEDS: Atorvastatin Calcium 80 MG Tablet PO (21:39)
[2022-03-24] MEDS: MELATONIN 10 MG TABLET PO (21:39)
[2022-03-24 21:45] LABS: Bedside Glucose 235 mg/dL (74-106)
[2022-03-25 00:15] VITALS: BMI 26.1
[2022-03-25 02:15] VITALS: BP 133/70; PULSE 90; RESP 18; TEMP 37.2; O2SAT 93
[2022-03-25 04:15] VITALS: BMI 26.1
[2022-03-25] MEDS: HYDROcodone Bitartrate/Apap 5/325 Tablet PO ×2 (04:15→10:19)
[2022-03-25] MEDS: Insulin Lispro 100 UNIT/ML INSULN.PEN SC ×2 (06:33→10:51)
[2022-03-25 06:45] LABS: Bedside Glucose 169 mg/dL (74-106)
--- NOTE | 2022-03-25 07:58 | PCM.PN.SRG ---
Subjective Subjective Patient denies abdominal pain, tolerating liquids Objective Data Objective Data Vital Signs: Vital Signs Temp Pulse Resp BP Pulse Ox 99.0 F 90 18 133/70 H 93 03/25/22 02:15 03/25/22 02:15 03/25/22 02:15 03/25/22 02:15 03/25/22 02:15 Oxygen Flow Rate (L/min) 2 Oxygen Delivery Method Room Air Weight: 77.8 kg Body Mass Index (BMI) 26.0 Intake & Output: Intake and Output for Last 24 Hours 03/23/22 03/24/22 03/25/22 23:59 23:59 23:59 Intake Total 1741.5 / 1741.5 600 / 600 Output Total 350 / 350 500 / 500 Balance 1391.5 / 1391.5 100 / 100 Lab / Micro Data Result Diagrams: 03/23/22 04:25 03/23/22 04:25 Labs: Laboratory Results - last 24 hr 03/24/22 12:09: POC Glucose 211 H 03/24/22 15:37: POC Glucose 212 H 03/24/22 21:38: POC Glucose 235 H 03/25/22 06:31: POC Glucose 169 H Radiography Diagnostic Testing: Radiology Impression Cholangiogram 03/24/22 14:08 IMPRESSION: Free flow of contrast is seen into the duodenum. The common bile duct is unremarkable. Electronically Signed: Ashkan Siu MD at 15:09 EDT , Rhythm Strip Rhythm Strip: Sinus Tach Physical Exam Const alert and oriented x3 Neck full ROM Resp normal respiratory effort GI GI Narrative: abdomen is soft and benign, dressing intact, minimal seepage Assessment & Plan Assessment/Plan (1) Status post laparoscopic cholecystectomy: PLAN: discharge to home Follow up with me as an outpatient in 7-10 days
--- NOTE | 2022-03-25 08:02 | DCINST_ITS ---
Discharge Instructions Follow Up Care Test Results: Test results from this visit will be discussed in further detail at your follow- up appointment, if applicable. Discharge Plan Admission Admit Date/Time: 03/21/22 10:54 Attending Provider: Amrik Massey Primary Care Provider: Amrik Jacob Consulting Providers: Isabell Capone ; Jamal Victoria ; Hector Mclain Instructions Additional Instructions / Restrictions: Recommended pain control regimen - May take 600 mg ibuprofen (Motrin) and then in 3-4 hours, may take 650 mg acetaminophen (Tylenol), then in 3-4 hours may take 600 mg ibuprofen, then in 3- 4 hours may take 650 mg acetaminophen and so on for 2-3 days May take narcotic pain medication for pain that is not controlled by above and at night for comfort through the night Leave dressings in place May shower, do not scrub in the areas of the dressings as they may unravel. If they become overly soiled you may remove them but leave incision site open to air. Do not soak - no tub baths/swimming Ice applied to areas of discomfort may help No lifting/pushing/pulling greater than 20 pounds for a month. Regular diet as tolerated, drink plenty of fluids. Avoid carbonated beverages for a few days as this will cause abdominal bloating and thus discomfort after our surgery. Please call my office for an appointment to see me in 7-10 days. Office number is If any questions, please call my office at and ask the news wire photo operator for the general surgery nurses desk Discharge Orders/Prescriptions Prescriptions: New hydrocodone-acetaminophen 5-325 mg tablet 1 tab PO Q8H 5 Days Qty: 15 0RF No Action lisinopril 40 mg tablet 40 mg PO DAILY amlodipine 5 mg tablet 5 mg PO DAILY atorvastatin 80 mg tablet 80 mg PO QHS fluoxetine 20 mg capsule 20 mg PO DAILY dutasteride 0.5 mg capsule 0.5 mg PO DAILY Label Comments: take 1 capsule by mouth once daily multivitamin Tablet 1 tab PO DAILY Zyrtec 10 mg capsule 10 mg PO DAILY PRN (Reason: ALLERGIES) metformin 500 mg tablet 1,000 mg PO DAILY alfuzosin 10 MG tablet extended release 24 hr 10 mg PO DAILY glimepiride tablet 5 mg PO.IVFORM DAILY Benadryl capsule 25 mg PO.IVFORM QHS Eliquis 5 mg tablet 5 mg PO BID Qty: 60 11RF Rx Instructions: 11/13/21-Called to [facility]-30 day free card faxed per request of pharmacist Referrals / Follow Up: Amrik Jacob MD [Primary Care Provider] -
[2022-03-25 08:12] VITALS: BP 136/85; PULSE 104; RESP 16; TEMP 37.4; O2SAT 95
[2022-03-25] MEDS: Multivitamins,Therapeutic Tablet 1 TABLET PO (08:34)
[2022-03-25] MEDS: FLUoxetine 20 MG Capsule PO (08:37)
[2022-03-25] MEDS: amLODIPine 5 MG Tablet PO (08:37)
[2022-03-25] MEDS: Tamsulosin HCl 0.4 MG Capsule PO (08:37)
[2022-03-25] MEDS: Lisinopril 40 MG Tablet PO (08:37)
[2022-03-25] MEDS: Finasteride 5 MG Tablet PO (08:37)
[2022-03-25 11:16] LABS: Bedside Glucose 225 mg/dL (74-106)
--- NOTE | 2022-03-25 11:42 | PHA.DC.MC ---
Pharmacy Service has performed discharge medication reconciliation and counseling for this patient. 1. NORCO 5/325MG 1T PO Q8 The patient's discharge medication list was reviewed for discrepancies and discrepancies were resolved. Home Medications alfuzosin 10 mg tablet,extended release 24 hr 10 mg PO DAILY prostate 10/02/20 amlodipine 5 mg tablet 5 mg PO DAILY BP 03/15/21 atorvastatin 80 mg tablet 80 mg PO QHS 03/15/21 fluoxetine 20 mg capsule 20 mg PO DAILY 03/15/21 lisinopril 40 mg tablet 40 mg PO DAILY BP 03/15/21 cetirizine 10 mg capsule (Zyrtec) 10 mg PO DAILY PRN ALLERGIES 03/18/21 dutasteride 0.5 mg capsule 0.5 mg PO DAILY 03/18/21 multivitamin 1 tab PO DAILY 03/18/21 metformin 500 mg tablet 1,000 mg PO DAILY DM 11/07/21 apixaban 5 mg tablet (Eliquis) 5 mg PO BID #60 tabs 11/13/21 Benadryl 25 mg PO.IVFORM QHS 03/21/22 glimepiride 5 mg PO.IVFORM DAILY 03/21/22 hydrocodone-acetaminophen 5-325mg 5mg-325mg 1 tab PO Q8H 5 days #15 tabs 03/25/22 The patient was counseled on the following discharge medications and changes in medications for homegoing were reviewed. The Reason for Use, instructions for use, and potential side effects were reviewed for all new medications. The patient's questions regarding all of their medications were answered. The patient was able to verbally demonstrate an understanding of their discharge medications.
--- NOTE | 2022-04-03 14:09 | DS.PCM_ITS ---
Providers Date of Admission: 03/21/22 Date of Discharge: 03/25/22 Primary Care Physician: Dr. Amrik Jacob MD Consultations 03/21/22 01:06 Consult: General Surgery Routine Consulting Provider: Isabell Capone Reason for Consult: Pancreatitis. Questonably from gallstone EMERGENT Consult: No MD Notified: Yes Date Notified: 03/21/22 Time Notified: 07:15 Method of Notification: Verbal Method of Consult:: In-Person Comments:: paged/by phone Reason For Visit: ACUTE PANCREATITIS Diagnosis Discharge Diagnosis (1) Status post laparoscopic cholecystectomy: Status: Acute Code(s): Z90.49 - Acquired absence of other specified parts of digestive tract Plan 1. Gallstone pancreatitis #2 essential hypertension #3 cerebrovascular disease #4 paroxysmal atrial fibrillation #5 chronic depression #6 type 2 diabetes #7 degenerative disc disease lumbar spine Medications at Discharge Home Medications alfuzosin 10 mg tablet,extended release 24 hr 10 mg PO DAILY prostate 10/02/20 amlodipine 5 mg tablet 5 mg PO DAILY BP 03/15/21 atorvastatin 80 mg tablet 80 mg PO QHS 03/15/21 fluoxetine 20 mg capsule 20 mg PO DAILY 03/15/21 lisinopril 40 mg tablet 40 mg PO DAILY BP 03/15/21 cetirizine 10 mg capsule (Zyrtec) 10 mg PO DAILY PRN ALLERGIES 03/18/21 dutasteride 0.5 mg capsule 0.5 mg PO DAILY 03/18/21 multivitamin 1 tab PO DAILY 03/18/21 metformin 500 mg tablet 1,000 mg PO DAILY DM 11/07/21 apixaban 5 mg tablet (Eliquis) 5 mg PO BID #60 tabs 11/13/21 Benadryl 25 mg PO.IVFORM QHS 03/21/22 glimepiride 5 mg PO.IVFORM DAILY 03/21/22 hydrocodone-acetaminophen 5-325mg 5mg-325mg 1 tab PO Q8H 5 days #15 tabs 03/25/22 Hospital Course Operations cholecystecomy (With cholangiograms) Procedures None Summary of Care Provided Minutes Spent on Discharge: 32 Hospital Course: This 86-year-old white male was seen in the emergency room at [facility] with a chief complaint of a 3-day history of upper abdominal pain and nausea. Labs were remarkable for a lipase of 1296 white blood cell count was 16.1. We will percent of the right upper quadrant was performed, there is poor visualization of the gallbladder. CT scan of the abdomen pelvis was obtained which showed evidence of cholelithiasis without cholecystitis, no significant inflammatory changes were noted to the pancreas. Patient was admitted to [facility], he was seen in consultation by general surgery who felt that the patient had gallstone pancreatitis. Patient was administered fluids and pain medications, patient was ultimately taken to surgery for laparoscopic cholecystectomy with cholangiograms. There was no untoward events in the foll owing day the patient was able to be discharged. On 03/25/2022, the patient was seen and examined: On examination he appeared in good health and spirits. Vital signs as documented. Skin warm and dry and without overt rashes. Neck without JVD, neck was supple, trachea midline, thyroid was normal. Lungs clear bilaterally, normal air movement was noted. Heart exam notable for regular rhythm, normal sounds and absence of murmurs, rubs or gallops. Abdomen unremarkable and without evidence of organomegaly, masses, or abdominal aortic enlargement. Bowel sounds are present, abdomen is not distended. Extremities nonedematous, no cyanosis was noted, no clubbing was noted. Neuro: Cranial nerves II through XII are grossly intact, no focal motor deficits were noted, sensation to light touch and pinprick intact, motor exam 5/5 throughout. Psych: Patient is alert and oriented x3, he does not appear anxious or depressed, he does not appear agitated. Patient was discharged home in stable condition on 03/25/2022. Weight / BMI Weight Weight: 77.8 kg Body Mass Index (BMI) 26.0 ABG / Lab / Microbiology Data Result Diagrams: 03/23/22 04:25 03/23/22 04:25 Meaningful Use Info Meaningful Use Diagnoses (Choose all that apply): None applicable Discharge Plan Admission Admit Date/Time: 03/21/22 10:54 Attending Provider: Amrik Massey Primary Care Provider: Amrik Jacob Consulting Providers: Isabell Capone ; Jamal Victoria ; Hector Mclain Instructions Additional Instructions / Restrictions: Recommended pain control regimen - May take 600 mg ibuprofen (Motrin) and then in 3-4 hours, may take 650 mg acetaminophen (Tylenol), then in 3-4 hours may take 600 mg ibuprofen, then in 3- 4 hours may take 650 mg acetaminophen and so on for 2-3 days May take narcotic pain medication for pain that is not controlled by above and at night for comfort through the night Leave dressings in place May shower, do not scrub in the areas of the dressings as they may unravel. If they become overly soiled you may remove them but leave incision site open to air. Do not soak - no tub baths/swimming Ice applied to areas of discomfort may help No lifting/pushing/pulling greater than 20 pounds for a month. Regular diet as tolerated, drink plenty of fluids. Avoid carbonated beverages for a few days as this will cause abdominal bloating and thus discomfort after our surgery. Please call my office for an appointment to see me in 7-10 days. Office number is If any questions, please call my office at and ask the mincing machine operator for the general surgery nurses desk Discharge Orders/Prescriptions Prescriptions: New hydrocodone-acetaminophen 5-325 mg tablet 1 tab PO Q8H 5 Days Qty: 15 0RF No Action lisinopril 40 mg tablet 40 mg PO DAILY amlodipine 5 mg tablet 5 mg PO DAILY atorvastatin 80 mg tablet 80 mg PO QHS fluoxetine 20 mg capsule 20 mg PO DAILY dutasteride 0.5 mg capsule 0.5 mg PO DAILY Label Comments: take 1 capsule by mouth once daily multivitamin Tablet 1 tab PO DAILY Zyrtec 10 mg capsule 10 mg PO DAILY PRN (Reason: ALLERGIES) metformin 500 mg tablet 1,000 mg PO DAILY alfuzosin 10 MG tablet extended release 24 hr 10 mg PO DAILY glimepiride tablet 5 mg PO.IVFORM DAILY Benadryl capsule 25 mg PO.IVFORM QHS Eliquis 5 mg tablet 5 mg PO BID Qty: 60 11RF Rx Instructions: 11/13/21-Called to [facility]-30 day free card faxed per request of pharmacist Referrals / Follow Up: Amrik Jacob MD [Primary Care Provider] - Disposition Disposition (needs filled in before D/C Order can be placed): Home, Self Care Charges/Coding Visit Charges Inpatient E&M: 60965 Disch Hosp
== END 2022-03-25 12:13 | disposition home or self-care (01) | DRG 418 ==
LOC: ED 03-21 00:15 → MS3 03-21 00:53
PROVIDERS: Internal Medicine; Surgery; Admitting Provider Hospitalist; Emergency Provider Emergency Medicine; PCP Family Medicine; Visit Provider Internal Medicine
PROC: (CPT 47610; principal; 2022-03-24 13:10)
DX: K85.10 Biliary acute pancreatitis without necrosis or infection (principal); K80.10 Calculus of gallbladder with chronic cholecystitis without obstruction; R41.4 Neurologic neglect syndrome; K76.0 Fatty (change of) liver, not elsewhere classified; I48.0 Paroxysmal atrial fibrillation; E11.65 Type 2 diabetes mellitus with hyperglycemia; I69.398 Other sequelae of cerebral infarction; E78.00 Pure hypercholesterolemia, unspecified; I10 Essential (primary) hypertension; F41.9 Anxiety disorder, unspecified; M51.36 Other intervertebral disc degeneration, lumbar region; N40.0 Benign prostatic hyperplasia without lower urinary tract symptoms; F32.A Depression, unspecified; Z79.01 Long term (current) use of anticoagulants; Z79.84 Long term (current) use of oral hypoglycemic drugs; Z79.899 Other long term (current) drug therapy; Z87.891 Personal history of nicotine dependence
CPT/HCPCS: 36415; 74177; 74300; 76000; 76705; 80048; 80053; 80061; 80076; 81001; 82962; 83690; 84484; 85025; 88304; 93005; 99284; J7120; Q9967; J2405

== ENCOUNTER → 2022-11-17 | Outpatient (CLI) | payer MEDICARE, SELFPAY ==
--- NOTE | 2022-11-17 14:25 | RAD_ITS ---
INDICATION: Lump on chest bony EXAMINATION/TECHNIQUE: X-RAY - XR Chest 2 Views COMPARISON: 10/02/2020. FINDINGS: Low lung volumes. Right basilar atelectasis. Tortuous and calcified thoracic aorta. The heart is mildly enlarged. No pleural effusion or pneumothorax. Degenerative changes of the thoracic spine. RAD/Chest PA and Lateral IMPRESSION: No acute radiographic abnormalities. Right basilar atelectasis. Electronically Signed: Gopi Kline MD at 18:19 EST ,
== END | disposition home or self-care (01) ==
LOC: RAD 14:15
PROVIDERS: PCP Family Medicine; Referring Provider Internal Medicine Cardiovascular Disease; Visit Provider Internal Medicine Cardiovascular Disease
DX: R22.2 Localized swelling, mass and lump, trunk (principal); I10 Essential (primary) hypertension
CPT/HCPCS: 71046

== ENCOUNTER → 2022-11-25 | Outpatient (CLI) | payer MEDICARE, SELFPAY ==
--- NOTE | 2022-11-25 10:54 | ECHOD_ITS ---
Version 2 Reason For Study: DYSPNEA/SOB Procedure This was a 2D Doppler, Color Flow transthoracic echocardiogram. The study was technically difficult. Exam performed in department. Left Ventricle Normal LV size. Left ventricular systolic function is normal. The estimated ejection fraction is 55 %. Stage 1 diastolic dysfunction. No regional wall motion abnormalities noted. Right Ventricle Normal RV size. Normal systolic function. Atria Normal left atrium. Normal right atrium. Mitral Valve There is moderate mitral annular calcification. Tricuspid Valve Normal tricuspid valve. Aortic Valve Trisinus/trileaflet aortic valve. Pulmonic Valve Normal pulmonic valve. Great Vessels Normal aortic root. The pulmonary artery is normal size. Normal inferior vena cava. Pericardium/Pleural No pericardial effusion. MMode/2D Measurements & Calculations LVIDd: 4.5 cm IVSd: 0.98 cm Ao root diam: 3.6 cm LVIDs: 3.3 cm LVPWd: 1.0 cm RVDd: 3.1 cm FS: 26.2 % LAV(MOD-bp): 39.6 ml LA A4 area: 11.9 cm2 LA dimension(2D): 3.9 cm LAV(MOD-bp) Indexed: 20.5 ml/m2 LAV(MOD-sp2): 47.7 ml LAV(MOD-sp4): 28.6 ml RA A4 area: 12.2 cm2 Time Measurements MV dec time: 0.16 sec Doppler Measurements & Calculations MV E max russ: 39.4 cm/sec Lat Peak E' Russ: 3.8 cm/sec Med Peak E' Russ: 6.6 cm/sec MV A max russ: 92.3 cm/sec E/E' lat: 10.3 E/E' med: 6.0 MV E/A: 0.43 MV dec slope: 244.5 cm/sec2 Ao V2 max: 96.9 cm/sec LV V1 max: 61.6 cm/sec Ao max P.8 mmHg LV V1 max P.5 mmHg Ao V2 mean: 68.1 cm/sec LV V1 mean P.71 mmHg Ao mean P.0 mmHg LV V1 mean: 39.2 cm/sec Ao V2 VTI: 13.8 cm LV V1 VTI: 9.1 cm AV (velocity ratio): 0.66 PA V2 max: 64.5 cm/sec ECHO/Echo Complete Interpretation Summary Normal LV size. Left ventricular systolic function is normal. The estimated ejection fraction is 55 %. Stage 1 diastolic dysfunction. Right pectoral mass. There is moderate mitral annular calcification. Ordering Physician: Jarrell Mojica Referring Physician: Amrik Jacob Performed By: Jeri Casey, HORACIOCS, RVT
== END | disposition home or self-care (01) ==
LOC: CVS 10:52
PROVIDERS: PCP Family Medicine; Visit Provider Internal Medicine Cardiovascular Disease
DX: Z86.73 Personal history of transient ischemic attack (TIA), and cerebral infarction without residual deficits (principal)
CPT/HCPCS: 93306

== ENCOUNTER → 2022-12-09 | Outpatient (CLI) | payer MEDICARE, SELFPAY ==
--- NOTE | 2022-12-09 12:25 | US_ITS ---
STUDY: SUPERFICIAL ULTRASOUND - CHEST REASON FOR EXAM: Male, 87 years old. Right chest mass -- Right chest mass noted on Echocardiogram TECHNIQUE: A superficial ultrasound was performed with real-time and static dale-scale imaging. COMPARISON: None. FINDINGS: The palpable abnormality corresponds to a heterogeneous complex cystic mass measuring 7.3 cm x 4.7 cm x 3.6 cm. Biopsy recommended. US/Chest IMPRESSION: The palpable abnormality corresponds to a 7.3 cm x 4.7 cm x 3.6 cm heterogeneous complex cystic mass. Biopsy recommended. Electronically Signed: Ashkan Siu MD at 13:43 EST ,
== END | disposition home or self-care (01) ==
LOC: US 12:23
PROVIDERS: PCP Family Medicine; Referring Provider Nurse Practitioner Family; Visit Provider Nurse Practitioner Family
DX: R22.2 Localized swelling, mass and lump, trunk (principal)
CPT/HCPCS: 76604

== ENCOUNTER → 2022-12-17 | Outpatient (CLI) | payer MEDICARE, SELFPAY ==
--- NOTE | 2022-12-17 15:12 | CT_ITS ---
STUDY: CT CHEST WITH CONTRAST REASON FOR EXAM: Male, 87 years old. Evaluate right chest mass -- Follow-up from U/S evaluation. History of a complex cystic mass of the chest seen on ultrasound. RADIATION DOSAGE (If Supplied By Facility): CTDIvol = ( 14.67 ) mGy, DLP = ( 504.56 ) mGycm TECHNIQUE: Transaxial imaging was performed following intravenous administration of IV 100mL Isovue-300. Multiplanar coronal and sagittal images were reformatted. Individualized dose optimization techniques were used for this CT. COMPARISON: Comparison is made with prior sonogram dated December 09, 2022. FINDINGS: CHEST The palpable abnormality corresponds to a 4.6 cm x 6.1 cm soft tissue mass with calcifications within. This causes posterior destruction of the underlying rib. This penetrates into the anterior chest wall. There is also evidence of a 1.4 cm nodule posterior to the body of the sternum. Mild degree of increased markings at the lung bases suggestive of scarring and/or atelectasis. There is no demonstrated pleural abnormality. Anterior pericardial effusion. There are multiple small lymph nodes within the mediastinum, which are normal in size and morphology most compatible with reactive lymph hyperplasia. Calcified left hilar lymph nodes. Normal unenhanced pulmonary arteries. There is atherosclerotic calcification of the aortic arch with tortuosity and elongation of the aortic arch and descending thoracic aorta. There are multi-level degenerative changes of the thoracic spine. There is no demonstrated abnormality of the visualized upper abdomen. CT/Chest WITH Contrast IMPRESSION: A-laterality post positive for 0.6 x 6.1 cm soft tissue mass causing destruction of the underlying rib and penetrating into the anterior thorax on the right side. A biopsy is recommended for further evaluation. Electronically Signed: Ashkan Siu MD at 15:32 EST ,
[2022-12-17 15:25] LABS: CREATININE FINGERSTICK 1.1 mg/dL (0.70-1.30); EGFR FINGERSTICK > 60.0000 mL/min (>60)
== END | disposition home or self-care (01) ==
LOC: CT 15:01
PROVIDERS: PCP Family Medicine; Referring Provider Nurse Practitioner Family; Visit Provider Nurse Practitioner Family
DX: R22.2 Localized swelling, mass and lump, trunk (principal)
CPT/HCPCS: 71260; Q9967; A4216

== ENCOUNTER 2023-01-07 07:47 | Outpatient (CLI) | payer MEDICARE, SELFPAY ==
[2023-01-07] VITALS (12 sets, daily range): BP systolic 109–149; BP diastolic 53–98; PULSE 63–77; RESP 5–20; TEMP 36.3; O2SAT 91–96; BMI 27.3
--- NOTE | 2023-01-07 08:03 | CT_ITS ---
PROCEDURE: CT GUIDED biopsy of the anterior right chest wall mass. DATE: January 07, 2023. INDICATION: Male, 87 years old. Right anterior chest wall mass. PHYSICIAN: Ashkan Siu M.D. RADIATION DOSAGE (If Supplied By Facility): CTDIvol = ( 18.7 ) mGy, DLP = ( 225.74 ) mGycm. Individualized dose optimization techniques were utilized. PROCEDURE: The risks, benefits, and alternatives to the procedure were explained to the patient. The specific risk of hemorrhage requiring further treatment or intervention was detailed and accepted. Follow-up instructions were discussed with the patient as well. Written informed consent was obtained. The patient was brought into the CT suite and placed in the supine position. . An appropriate entry site was identified. The overlying skin was prepped and draped in the usual sterile fashion. 1% lidocaine was administered subcutaneously for local anesthesia. Conscious sedation was performed. The patient received 1 mg of Versed and 25 mcg of fentanyl intravenously. Conscious sedation was started at 9:04 AM and terminated at 9:21 AM. The patient was independently monitored by the department nurse. Under CT guidance, a total of 4 passes were performed utilizing a 18-gauge core biopsy needle system. The specimens were then placed in the appropriate fluid and transported to the laboratory for analysis. Hemostasis was obtained. The patient tolerated the procedure well without immediate complications. CT/Biopsy/Inj or Needle Placement IMPRESSION: Successful CT guided biopsy of the right anterior chest wall mass, as described above. Conscious sedation protocol was followed. Electronically Signed: Ashkan Siu MD at 9:57 EDT ,
[2023-01-07 08:05] LABS: Absolute Neutrophil Count 5.7 X10^3/uL (2.0-7.7); Basophil# 0.09 X10^3/uL; Basophil% 1.1 % (0-1); Eosinophil# 0.11 X10^3/uL; Eosinophils% 1.3 % (0-5); Hematocrit 42.3 % (40-54); Hemoglobin 14.2 g/dL (13.0-16.5); Mean Corp Hgb Conc 33.6 g/dL (32-36); Mean Corpuscular Hgb 31.4 pg (27.0-32.0); Mean Corpuscular Volume 93.6 fL (80-94); Mean Platelet Vol. 10.2 fl (6.2-12.0); Monocyte# 0.81 X10^3/uL; Monocyte% 9.6 % (0-10); NRBC Flagged by Analyzer 0 % (0-5); Neutrophil # 5.73 X10^3/uL (2.7-7.7); Neutrophil % 68.3 % (47-70); Platelet Count 244 K/mm3 (150-450); RBC Distribution Width CV 13.1 % (11.6-14.6); Red Blood Count 4.52 M/mm3 (4.6-6.2); White Blood Count 8.4 K/mm3 (4.4-11.0)
[2023-01-07 08:19] LABS: Partial Thromboplast Time 28.4 Seconds (24.1-36.2); Prothrombin Time (Protime)PT. 13.1 SECONDS (11.7-14.9)
[2023-01-07] MEDS: Midazolam 2 MG/2 ML Syringe IV (09:04)
[2023-01-07] MEDS: fentaNYL 100 MCG/2 ML Ampul IV (09:07)
[2023-01-07] MEDS: Lidocaine 2% (20 ml mdv) 20 ML Vial (09:12)
--- NOTE | 2023-01-07 09:15 | ASPIGT_PTH ---
PATIENT: ZACHARY LEMA LOC: [place] U#:[id number] AGE/SX: 87/M ROOM: RE01/07/[address]: Dr. Jimmy Rick MD : 1935 BED: DIS: 01/07/2023 SPEC #: [id number] RECD: 01/07/23 09:30 STATUS: ULICES RELiliana #: [id number] KYLE: 01/07/23 09:[address]: Jimmy Rick DEPT: SURGICAL PATHOLOGY RECD BY: Cecilia Alvares ENTERED: 01/07/23 10:53 SP TYPE: ASP RAD OTHR DR: Dr. 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 See comment. SJ:cristobal 02/04/2023 COMMENT The specimen is evaluated at the time of biopsy by Dr. Reilly. Immediate Evaluation = Adequate for evaluation. The specimen is sent to [facility] and then sent from [facility] to [facility] and reviewed by Dr. Javier Donovan and Dr. Christ Alfaro and the above diagnosis is rendered. The complete report is viewable in the patient's EMR. Dr. 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 The cells of interest contain small lymphocyte-like nuclei with moderate cytologic atypia (including mild spindling) and rare bi-nucleation.? [facility] NGS report from [facility] shows the following: RESULT SUMMARY: Normal IMMUNOTHERAPY BIOMARKERS: Tumor Mutation [place]: Low (0.8 Mutations / MB) Microsatellite Instability: MSI Negative (2.65%) PERTINENT NEGATIVE RESULTS: The following genes are NEGATIVE for clinically relevant mutations. Mutational hotspots and surrounding exonic regions were interrogated for DNA level point mutations and indels (fusions not assayed). AKT1, APC, ARID1A, SAVANNAH, BRAF, BRCA1, BRCA2, CDH1, CDKN2A, CTNNB1, EGFR, EPCAM, ERBB2, ERBB4, FBXW7, FGFR1, FGFR2, FGFR3, GNA11, GNAQ, GNAS, HRAS, IDH1, IDH2, KDR, KIT, KRAS, MEN1, MET, MLH1, MSH2, MSH6, NOTCH1, NRAS, PDGFRA, PIK3CA, PMS2, POLE, PTEN, PTPN11, RB1, RET, SMAD4, SMO, STK11, TERT, TP53, TSC1, TSC2, VHL The complete report is viewable in patient?s EMR. Case has been reviewed in consultation with Dr. Sanchez who concurs with the above diagnosis. IDC:AM MICROSCOPIC DESCRIPTION Slides are reviewed. GROSS DESCRIPTION Received in fixative is one container labeled with the patient's name and designated anterior chest wall mass. The specimen consists of multiple elongated fragments of tinajero tissue that in aggregate measure 1.5 x 0.4 x 0.1 cm. The specimen is totally submitted in one cassette. / AM:cristobal 01/07/2023 TC:0 CPT: 19568, 16022
== END 2023-01-07 23:59 | disposition home or self-care (01) ==
PROVIDERS: PCP Family Medicine; Referring Provider Internal Medicine Hematology & Oncology; Visit Provider Internal Medicine Hematology & Oncology
DX: C41.3 Malignant neoplasm of ribs, sternum and clavicle (principal); I69.354 Hemiplegia and hemiparesis following cerebral infarction affecting left non-dominant side; I48.0 Paroxysmal atrial fibrillation; I10 Essential (primary) hypertension; E78.00 Pure hypercholesterolemia, unspecified; Z79.01 Long term (current) use of anticoagulants; Z79.899 Other long term (current) drug therapy; Z87.891 Personal history of nicotine dependence
CPT/HCPCS: 21550; 36415; 77012; 85025; 85610; 85730; 88172; 88305; 88313; 99156; J7050; A4216

== ENCOUNTER 2023-01-29 10:20 | Emergency (ER) | payer MEDICARE, SELFPAY ==
[2023-01-29 10:20] VITALS: BP 116/85; PULSE 103; RESP 18; TEMP 36.6; O2SAT 93
--- NOTE | 2023-01-29 10:24 | EX.ED.GENINJ ---
HPI History of Present Illness Chief Complaint: Fall Narrative Narrative: 87-year-old male here for follow-up. Notes a mechanical fall from standing. Notes he fell backward hit his head. Notes he is on blood thinners. Endorses neck pain as well. Denies focal weakness. Last blood thinner dose was yesterday. Notes he tripped over something today when try to get out of bed. Notes he fell backwards hitting his back and injuring the back of his head. [facility] Medical History Acute ischemic stroke Ambulates with cane Basal cell carcinoma BPH (benign prostatic hyperplasia) Bruising Cancer Cholelithiasis Chronic back pain Chronic eczema Cryptogenic stroke Dysarthria Easy bruising Essential (primary) hypertension Facial droop Former smoker High cholesterol History of ischemic right [employer] stroke (10/02/20) Hypertension Left arm weakness Loss of peripheral visual field PAF (paroxysmal atrial fibrillation) Walker as ambulation aid Wears glasses Wears hearing aid Home Medications alfuzosin 10 mg tablet,extended release 24 hr 10 mg PO DAILY prostate 10/02/20 [History Last Taken 03/20/22] amlodipine 5 mg tablet 5 mg PO DAILY BP 03/15/21 [History Last Taken 03/20/22] atorvastatin 80 mg tablet 80 mg PO QHS 03/15/21 [History Last Taken 03/20/22] lisinopril 40 mg tablet 40 mg PO DAILY BP 03/15/21 [History Last Taken 03/20/22] cetirizine 10 mg capsule (Zyrtec) 10 mg PO DAILY PRN ALLERGIES 03/18/21 [History Last Taken 03/20/22] dutasteride 0.5 mg capsule 0.5 mg PO DAILY 03/18/21 [History Last Taken 03/20/22] multivitamin 1 tab PO DAILY 03/18/21 [History Last Taken 03/20/22] apixaban 5 mg tablet (Eliquis) 5 mg PO BID #60 tabs 11/09/22 [Rx Last Taken 01/03/23] dulaglutide 1.5 mg/0.5 mL subcutaneous pen injector (Trulicity) 1.5 mg subcut QWEEK 11/17/22 [History Last Taken Unknown] fluoxetine 20 mg capsule 40 mg PO DAILY 11/17/22 [History Last Taken Unknown] glimepiride 2 mg tablet tablet PO 11/17/22 [History Last Taken Unknown] pantoprazole 40 mg tablet,delayed release 40 mg PO DAILY 11/17/22 [History Last Taken Unknown] Allergy/AdvReac Type Severity Reaction Status Date / Time lactic acid [From Lac-Hydrin] Allergy Rash Verified 01/29/23 10:23 Penicillins Allergy Unknown Verified 01/29/23 10:23 Family History Sister Ovarian cancer Diabetes old age onset Mother Basal cell carcinoma Father CHF (congestive heart failure) Diabetes old age onset Grandfather Diabetes old age onset Surgical History H/O basal cell carcinoma excision History of shoulder surgery Status post laparoscopic cholecystectomy Social History household members: spouse current occupational exposures/hazards: No Smoking Status: Former smoker pack-years: 20 Tobacco: How many years used: 20 how long ago did patient quit smokin years ago; quit sometime in the alcohol intake: current alcohol intake frequency: holidays/special occasions only substance use type: does not use caffeine: Yes (Occasionally, drinks mostly caffeine free beverages) ROS ROS ED ROS Narrative Constitutional: Denies fever HEENT: Denies sore throat Neck: Endorses neck pain Cardiovascular: Denies chest pain, syncope Respiratory: Denies shortness of breath GI: Denies nausea vomiting or abdominal pain : Denies changes in urinary habits Musculoskeletal: Denies muscle or joint pain Neurologic: Denies numbness weakness or loss of sensation Skin denies rash EXAM Physical Exam Narrative Exam Narrative: Primary Survey Airway: Intact Breathing: Bilateral breath sounds Circulation: Palpable bilateral femorals, Palpable bilateral radial, Palpable bilateral DP and Palpable bilateral PT Disability / Spine precautions GCS Score: Eye Openin Verbal Response: 5 Motor Response: 6 Secondary Survey Constitutional: Please see MDM Head: Atraumatic, Midface stable, NO jaw malocclusion, No Cephalohematoma, and No Lacerations noted Eye: Pupils equal round and reactive to light, Extraocular muscles intact and No periorbital ecchymosis or stepoff, no evidence of entrapment ENT: Oropharynx clear, no lacerations, no hemotympanum, no raccoon eyes or johnson sign Cervical spine / Neck: No cervical spine bony tenderness, crepitance, or stepoff deformity Trachea midline Lungs: Clear to auscultation, No asymmetric rise and No crepitus, no flail chest Cardiac: Regular rate and rhythm and No murmurs Abdomen: Soft, Nontender and No rebound Pelvis: Pelvis stable to compression : No evidence of genital injury Back: No midline bony tenderness to thoracic/lumbar/sacral spines Neuro: Alert and oriented x3, neuro exam at baseline, cranial nerves II through XII are intact. No pain with extraocular muscle movement. There is negative test of skew. Normal speech. 5 of 5 strength in upper and lower extremities in flexion extension. Intact sensation to light touch in upper and lower extremity dermatomes. No truncal or extremity ataxia. No dysdiadochokinesia. 2+ reflexes. No meningeal signs. Negative Babinski. NIH of 0 Extremities: NO gross Deformities Psych: Normal affect Nursing triage notes reviewed, Vital signs reviewed Const Vital Signs: 01/29/23 10:20 01/29/23 10:34 Temperature 97.8 F Temperature Source Temporal Pulse Rate 103 H Respiratory Rate 18 Respiratory Effort Normal Respiratory Depth Normal Respiratory Pattern Normal Blood Pressure 116/85 H Blood Pressure Mean 95 Pulse Ox 93 Oxygen Delivery Method Room Air Room Air MDM MDM MDM Narrative Medical decision making narrative: Chief Complaint: Fall External records reviewed: brain CT from 2020 shows chronic involutional changes, no acute process after fall MDM: Patient was hemodynamically stable, afebrile, nontoxic-appearing. Nonfocal neurologic exam. I considered the following differential diagnosis: Intracranial abnormality, traumatic injury to the cervical, thoracic and lumbar spine CT scan showed no acute traumatic injuries. He was given Tylenol for pain control. Discouraged from taking ibuprofen given presence of blood thinners. Tertiary exam was unremarkable, patient ambulated well he is appropriate for discharge home Factors affecting care: On Eliquis secondary to A-fib Social determinants of health: Elderly History obtained from others: The patient's Shared decision making: I will have a discussion with the patient and or visitors regarding risk/benefits of further testing or admission. They will be made aware of of the risk/benefits inherent in this decision they will be given the opportunity to voice understanding. Consults: None Radiography Diagnostic Testing: Clinical Impression(s) from Imaging Studies Brain CT 01/29/23 10:39 IMPRESSION: Chronic involutional changes of the brain. Stable encephalomalacia in the posterior right occipital lobe. Stable lacunar infarct in the right thalamus. Electronically Signed: Ashkan Siu MD at 11:18 EDT , Cervical Spine CT 01/29/23 10:39 IMPRESSION: Multilevel degenerative changes, as described above. There has been no change since prior study. Electronically Signed: Ashkan Siu MD at 11:24 EDT , Lumbar Spine CT 01/29/23 10:39 IMPRESSION: Multilevel degenerative changes, as described above. Electronically Signed: Ashkan Siu MD at 11:21 EDT , Thoracic Spine CT 01/29/23 10:39 IMPRESSION: Degenerative changes. There has been no change as compared to prior study. Electronically Signed: Ashkan Siu MD at 11:26 EDT , Discharge Plan Triage Chief Complaint: Fall ED Provider: Laz Rucker Dx/Rx/DC Orders Clinical Impression: Contusion of head, CHI (closed head injury), Back contusion Instructions: After a Concussion Prescriptions: No Action lisinopril 40 mg tablet 40 mg PO DAILY amlodipine 5 mg tablet 5 mg PO DAILY atorvastatin 80 mg tablet 80 mg PO QHS dutasteride 0.5 mg capsule 0.5 mg PO DAILY Label Comments: take 1 capsule by mouth once daily multivitamin Tablet 1 tab PO DAILY Zyrtec 10 mg capsule 10 mg PO DAILY PRN (Reason: ALLERGIES) fluoxetine 20 mg capsule 40 mg PO DAILY Rx Instructions: Take with 40 mg cap to = 60 mg daily glimepiride 2 mg tablet PO Trulicity 1.5 mg/0.5 mL pen injector 1.5 mg subcut QWEEK pantoprazole 40 mg tablet,delayed release (DR/EC) 40 mg PO DAILY alfuzosin 10 MG tablet extended release 24 hr 10 mg PO DAILY Eliquis 5 mg tablet 5 mg PO BID Qty: 60 11RF Rx Instructions: 11/13/21-Called to [facility]-30 day free card faxed per request of pharmacist Primary Care Provider: Amrik Jacob Referrals: Amrik Jacob MD [Primary Care Provider] - Activity Restrictions/Additional Instructions: Thank you for trusting us with your care today! Please take Tylenol (2 pills, 650 mg), ibuprofen (2 pills, 400 mg) every 6 hours as needed for pain and fever control. Please return to the emergency department if your symptoms change or worsen. Please follow with your primary care physician for further outpatient evaluation and management. Disposition Disposition: Home, Self Care
[2023-01-29 10:34] VITALS: BMI 25.3
--- NOTE | 2023-01-29 10:39 | CT_ITS ---
STUDY: CT BRAIN WITHOUT CONTRAST REASON FOR EXAM: Male, 87 years old. Fall, head trauma on [place] RADIATION DOSAGE (If Supplied By Facility): CTDIvol = ( 44.99 ) mGy, DLP = ( 829.85 ) mGycm TECHNIQUE: Transaxial CT imaging of the brain was performed without administration of intravenous contrast material. Individualized dose optimization techniques were used for this CT. COMPARISON: Comparison is made with prior study dated June 25, 2021. FINDINGS: Normal soft tissue structures. Normal calvarium. There is mild cerebral atrophy with widening of the extra-axial spaces and ventricular dilatation. Stable encephalomalacia in the right occipital lobe in keeping with prior infarction. Stable lacunar infarct in the left thalamus. Normal brainstem. Normal cerebellum. There is no intracranial hemorrhage. There are no findings of an acute ischemic infarction. Atherosclerotic plaque formation of the cavernous portions of the internal carotid arteries bilaterally. Normal visualized paranasal sinuses. CT/Brain/Head without Contrast IMPRESSION: Chronic involutional changes of the brain. Stable encephalomalacia in the posterior right occipital lobe. Stable lacunar infarct in the right thalamus. Electronically Signed: Ashkan Siu MD at 11:18 EDT ,
--- NOTE | 2023-01-29 10:39 | CT_ITS ---
STUDY: CT CERVICAL SPINE WITHOUT CONTRAST REASON FOR EXAM: Male, 87 years old. Fall, neck pain RADIATION DOSAGE (If Supplied By Facility): CTDIvol = ( 20.70 ) mGy, DLP = ( 388.88 ) mGycm TECHNIQUE: High resolution transaxial imaging was performed without contrast material. Sagittal and coronal images were reconstructed. Individualized dose optimization techniques were used for this CT. COMPARISON: Comparison is made with prior examination of June 25, 2021. FINDINGS: Normal craniovertebral junction. There are degenerative changes of the anterior atlantoaxial articulation. Normal odontoid process. There is straightening of the normal cervical lordosis. Normal vertebral bodies and posterior osseous elements. C2-3: Normal endplates. Normal disc height and morphology. Normal central canal and intervertebral neuroforamina. C3-4: Facet joint osteoarthritis and hypertrophy more prominent on the right side. Mild degree of right neural foraminal stenosis. C4-5: Marked degree of disc space narrowing. Spondylosis. Uncovertebral arthrosis. Mild central canal stenosis due to posterior spondylosis. Bilateral neural foraminal stenosis worse on the right side. C5-6: Marked degree of disc space narrowing. Spondylosis. Uncovertebral arthrosis. Bilateral neural foraminal stenosis and right lateral canal stenosis. C6-7: Disc space narrowing and degeneration. C7-T1: Normal endplates. Normal disc height and morphology. Normal central canal and intervertebral neuroforamina. Calcification of the carotid bifurcation. CT/Spine Cervical without Contras IMPRESSION: Multilevel degenerative changes, as described above. There has been no change since prior study. Electronically Signed: Ashkan Siu MD at 11:24 EDT ,
--- NOTE | 2023-01-29 10:39 | CT_ITS ---
STUDY: CT THORACIC SPINE WITHOUT CONTRAST REASON FOR EXAM: Male, 87 years old. Fall, back pain RADIATION DOSAGE (If Supplied By Facility): CTDIvol = ( 23.38 ) mGy, DLP = ( 948.16 ) mGycm TECHNIQUE: The patient was scanned in a multi detector CT scanner. High resolution imaging was performed. Images were obtained from T1 to T12 vertebral level. Sagittal and coronal images were reconstructed. Individualized dose optimization techniques were used for this CT. COMPARISON: Comparison is made with prior study dated June 25, 2021. FINDINGS: Normal visualized cervical spine. Normal kyphosis of the thoracic spine. There is no substantial scoliosis. Mild degree of anterior spondylosis and disc space narrowing in the mid and lower dorsal spine. Calcified granulomas seen in the left perihilar region. CT/Spine Thoracic without Contras IMPRESSION: Degenerative changes. There has been no change as compared to prior study. Electronically Signed: Ashkan Siu MD at 11:26 EDT ,
--- NOTE | 2023-01-29 10:39 | CT_ITS ---
STUDY: CT LUMBAR SPINE WITHOUT CONTRAST REASON FOR EXAM: Male, 87 years old. Fall, lower back pain RADIATION DOSAGE (If Supplied By Facility): CTDIvol = ( 24.96 ) mGy, DLP = ( 812.68 ) mGycm TECHNIQUE: The patient was scanned in a multi detector CT scanner. High resolution transaxial imaging was performed. Images were obtained from L1 to S1 vertebral level. Sagittal and coronal images were reconstructed. Individualized dose optimization techniques were used for this CT. COMPARISON: None FINDINGS: There is straightening of the normal lumbar lordosis. There is a levoscoliosis of the lumbar spine. Multilevel spondylosis. L1-2: Mild degree of disc space narrowing and disc degeneration. Anterior spondylosis. Mild degree of diffuse posterior disc bulge. Facet joint osteoarthritis and hypertrophy. Moderate degree of bilateral neural foraminal and central canal stenosis. L2-3: Marked degree of disc space narrowing with spondylosis and subchondral sclerosis. Mild degree of central canal stenosis. L3-4: Marked degree of disc space narrowing and disc degeneration. Spondylosis. Facet joint osteoarthritis and hypertrophy of the ligamenta flava. Bilateral neural foraminal and central canal stenosis. L4-5: Marked degree of disc space narrowing. Facet joint osteoarthritis and hypertrophy as well as hypertrophy of the ligamenta flava. Mild degree of central canal stenosis. L5-S1: Marked degree of disc space narrowing and disc degeneration. Atherosclerotic calcification of the abdominal aorta. CT/Spine Lumbar without Contrast IMPRESSION: Multilevel degenerative changes, as described above. Electronically Signed: Askhan Siu MD at 11:21 EDT ,
[2023-01-29] MEDS: Acetaminophen 500 MG Tablet PO (10:46)
== END 2023-01-29 12:15 | disposition home or self-care (01) ==
PROVIDERS: Emergency Provider Emergency Medicine; PCP Family Medicine; Referring Provider Emergency Medicine; Visit Provider Emergency Medicine
DX: S00.93XA Contusion of unspecified part of head, initial encounter (principal); I48.0 Paroxysmal atrial fibrillation; S20.229A Contusion of unspecified back wall of thorax, initial encounter; Z87.891 Personal history of nicotine dependence; Z79.01 Long term (current) use of anticoagulants; W19.XXXA Unspecified fall, initial encounter
CPT/HCPCS: 70450; 72125; 72128; 72131; 99283

== ENCOUNTER → 2023-07-28 | Outpatient (CLI) | payer MEDICARE, SELFPAY ==
--- NOTE | 2023-07-28 16:07 | CT_ITS ---
ACR Level 3 findings have been noted. An addendum which confirms receipt of the report will follow. INDICATION: eval for progression of disease -- please compare to prior EXAMINATION: CT CHEST WITH CONTRAST - CT Chest W/ Contrast Injection TECHNIQUE: Helically acquired images were obtained of the chest following IV contrast. A radiation dose optimization technique was used for this scan. Sagittal coronal reformatted images are performed. IV Contrast dosage and agent: 90 mL [id number] COMPARISON: December 17, 2022 CT chest FINDINGS: LUNGS, PLEURA AND LARGE AIRWAYS: Within the anterior chest wall deep to the pectoralis muscle there is a visualized partially enhancing mass that extends from the soft tissues deep to the pectoralis muscle through the anterior sternal chondroid space. This measures 4.9 x 6.2 with a component deep to the sternum measuring 1.0 x 1.5 cm. This is slightly enlarged when compared to prior study where it measured approximately 6 x 4.5 cm with stable component deep to the sternum. THYROID: No thyroid lesions. HEART AND PERICARDIUM: There is mild cardiac enlargement. There is a trace pericardial effusion. VESSELS: There is partial calcification of the aorta. No aortic dissection. No obvious central pulmonary embolism although this study was not performed with the pulmonary embolism protocol. MEDIASTINUM AND JORGE: No mediastinal or hilar adenopathy. Esophagus is unremarkable. Is a minimal hiatal hernia. UPPER ABDOMEN: There is calcification within the remaining pancreatic tissue. There is overall atrophy of the pancreas. The stomach is distended. BONES: The bones are osteopenic. There is interval 50% loss of height at the level of the superior endplate at T12 which could potentially represent posttraumatic or potentially pathologic fracture. There is visualized degenerative change of the cervical spine. 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 There is a intrathoracic component deep to the sternum which appears similar to the prior studies. Otherwise the lungs are clear. Trace pericardial effusion. Calcification the level of the mitral valve. Partially visualized upper abdomen demonstrated a atrophied fatty infiltrated pancreas. Degenerative change of the thoracolumbar spine. Since December 17, 2022 interval approximate 50% compression injury at the level of T12. This could represent posttraumatic versus post pathologic fracture in the appropriate setting recommend dedicated study such as MRI of the thoracolumbar spine. Electronically Signed: Vero Rosenbaum MD at 6:01 EDT ,
[2023-07-28 16:40] LABS: CREATININE FINGERSTICK 1.4 mg/dL (0.70-1.30)
== END | disposition home or self-care (01) ==
PROVIDERS: PCP Family Medicine; Referring Provider Student in an Organized Health Care Education/Training Program; Visit Provider Student in an Organized Health Care Education/Training Program
DX: C41.3 Malignant neoplasm of ribs, sternum and clavicle (principal)
CPT/HCPCS: 71260; Q9967

== ENCOUNTER → 2023-11-01 | Outpatient (CLI) | payer MEDICARE, SELFPAY ==
--- NOTE | 2023-11-01 15:04 | CT_ITS ---
INDICATION: eval for any disease progression -- please compare to prior EXAMINATION: CT CHEST WITH CONTRAST - CT Chest W/ Contrast Injection TECHNIQUE: Helically acquired images were obtained of the chest following IV contrast. A radiation dose optimization technique was used for this scan. IV Contrast dosage and agent: 100 mL [id number]-[id number] COMPARISON: July 28, 2023., December 17, 2022 FINDINGS: LUNGS, PLEURA AND LARGE AIRWAYS: Anterior medial right chest subpectoral mass measures up to 4.7 cm AP by 6.4 cm transverse by 8.6 cm craniocaudal, previously 4.8 x 6.1 x 8.6 cm when measured similarly on July 28, 2023, superficial to the second through fifth ribs with concern for anterior costochondral chondral rib involvement particularly at the fourth rib, and again extending through the chest wall between the third and fourth rib partially encasing the right internal thoracic artery. Unchanged 1.5 x 0.9 cm likely lymph node deep to the right sternum adjacent to the mass. No other adenopathy. No pleural effusion or thickening. Mild dependent atelectasis. No pneumothorax. THYROID: No thyroid lesions. HEART AND PERICARDIUM: Heart size is normal. No pericardial effusion. VESSELS: Thoracic aorta is not dilated. No aortic dissection. No obvious central pulmonary embolism although this study was not performed with the pulmonary embolism protocol. MEDIASTINUM AND JORGE: No mediastinal or hilar adenopathy. Esophagus is unremarkable. No hiatal hernia. UPPER ABDOMEN: Partial fatty replacement of the pancreas with unchanged coarse calcification at the uncinate processA. BONES: No suspicious lytic or blastic abnormality. Chronic T12 mild anterior compression deformity. CT/Chest WITH Contrast IMPRESSION: No significant interval change in anterior right chest wall mass compared with July 28, 2023, remaining slightly enlarged compared with December 17, 2022. Unchanged anterior intrathoracic component or lymph node posterior to the right sternum adjacent to the mass compared with December 17, 2022. No evidence of new amanda disease or additional thoracic mass. Electronically Signed: Josse Churchill MD at 8:53 EST ,
--- OUTSIDE RECORDS SUMMARY | 2023-11-01 15:25 | XMS RPT_ITS | CCD ---
Author Name Unknown Address [address] [place] [address] Organization [facility] Care Team Providers Care Ic Engineer Name Role Phone EMILIA REEVES Primary Care Unavailable MARCELA GARCIA Attending Unavailable EMILIA CARDENAS Referring Unavailable STEFFI AMADOR Attending Unavailable CECILY SCHAFFER Referring Unavailable EMILIA REEVES Primary Care Unavailable Emilia Reeves MD Primary Care Provider Emilia Reeves MD Primary Care Provider Emilia Reeves MD Primary Care Provider EMILIA REEVES Referring Unavailable EMILIA REEVES Primary Care Unavailable EMILIA REEVES Attending Unavailable EMILIA REEVES Primary Care Unavailable EMILIA REEVES Primary Care Unavailable EMILIA REEVES Attending Unavailable EMILIA REEVES Primary Care Unavailable EMILIA REEVES Referring Unavailable EMILIA REEVES Primary Care Unavailable EMILIA REEVES Attending Unavailable EMILIA REEVES Primary Care Unavailable EMILIA REEVES Attending Unavailable EMILIA REEVES Primary Care Unavailable Allergies Allergy Classification Reported Allergen(s) Allergy Type Date of Onset Reaction(s) Facility (20 sources) Lactate Drug Allergy 6 Rash [facility] Work Phone: (7 sources) Penicillins; Translations: [PENICILLINS] Propensity to adverse reactions 5 [facility] Work Phone: (17 sources) Penicillins Propensity to adverse reactions 5 [facility] Work Phone: (1 source) OTHER; Translations: [OTHER] Propensity to adverse reactions (disorder) 6 [facility] Repository Medications Completed/Discontinued Medications Medication Drug Class(es) Dates Sig (Normalized) Sig (Original) acetaminophen 325 mg / HYDROcodone bitartrate 5 mg oral tablet (5 sources) Opioid Agonist Start: 03-25-2022 End: 06-02-2022 take 1 tablet by mouth every eight hours HYDROcodone-acetami nophen (NORCO) 5-325 mg per tablet take 1 tablet by mouth every 8 hours for 5 days 0 03/25/2022 06/02/2022 Discontinued Problems Active Problems Problem Classification Problem Date Documented Date Episodic/Chronic Acute cerebrovascular disease (15 sources) Cerebrovascular accident; Translations: [Cerebral infarction, unspecified] Onset: 11-11-2020 11-11-2020 Chronic Cardiac dysrhythmias (1 source) Atrial fibrillation; Translations: [Unspecified atrial fibrillation] Chronic Diabetes mellitus without complication (20 sources) Type 2 diabetes mellitus without complication; Translations: [Type 2 diabetes mellitus without complications] Onset: 11-21-2019 Chronic Disorders of lipid metabolism (20 sources) Pure hypercholesterolemia; Translations: [Pure hypercholesterolemia, unspecified] Onset: 09-26-2010 09-26-2010 Chronic Esophageal disorders (2 sources) Gastroesophageal reflux disease without esophagitis; Translations: [Gastro-esophageal reflux disease without esophagitis] Chronic Essential hypertension (20 sources) Benign essential hypertension; Translations: [Essential (primary) hypertension] Onset: 02-25-2012 Chronic Immunizations and screening for infectious disease (1 source) Vaccination needed; Translations: [Encounter for immunization] Episodic Malaise and fatigue (2 sources) Fatigue; Translations: [Other fatigue] Episodic Mood disorders (20 sources) Moderate major depression, single episode; Translations: [Major depressive disorder, single episode, moderate] Onset: 12-02-2020 12-02-2020 Chronic Nausea and vomiting (1 source) Nausea; Translations: [Nausea] Episodic Osteoarthritis (20 sources) Degenerative joint disease involving multiple joints; Translations: [Polyosteoarthritis, unspecified] Onset: 10-14-2005 09-26-2010 Chronic Other circulatory disease (1 source) Pulmonary congestion ; Translations: [Other specified symptoms and signs involving the circulatory and respiratory systems] Episodic Other lower respiratory disease (1 source) Cough; Translations: [Cough, unspecified type] Episodic Other male genital disorders (1 source) Secondary erectile dysfunction; Translations: [Male erectile dysfunction, unspecified] Chronic Other upper respiratory disease (1 source) Congestion of nasal sinus; Translations: [Nasal congestion] Episodic Other upper respiratory infections (1 source) Upper respiratory infection; Translations: [Acute upper respiratory infection, unspecified] 08-19-2023 Episodic Past or Other Problems Problem Classification Problem Date Documented Date Episodic/Chronic Diabetes mellitus without complication (20 sources) Impaired fasting glycemia; Translations: [Impaired fasting glucose] Onset: 01-01-2010 10-06-2021 Episodic Other circulatory disease (14 sources) History of cerebrovascular accident; Translations: [Personal history of transient ischemic attack (TIA), and cerebral infarction without residual deficits] Onset: 11-11-2020 Episodic Other circulatory disease (1 source) Personal history of transient ischemic attack (TIA), and cerebral infarction without residual deficits; Translations: [History of CVA (cerebrovascular accident)] Onset: 11-13-2022 Episodic Spondylosis; intervertebral disc disorders; other back problems (20 sources) Chronic low back pain; Translations: [Chronic midline low back pain without sciatica] Onset: 10-14-2005 05-24-2017 Episodic Results Test Name Value Interpretation Reference Range Facil ity Vital Signs Date Time Vital Sign Value Performing Clinician Byron bourne 08-19-2023 11:25-0500 Body temperature 98.49 [degF] Katheryn Lora APRN.AIDA Work Phone: [facility] 08-19-2023 11:25-0500 Body weight 82.56 kg Katheryn Lora APRN.AIDA Work Phone: [facility] 08-19-2023 11:25-0500 Diastolic blood pressure 79 mm[Hg] Katheryn Lora APRN.AIDA Work Phone: [facility] 08-19-2023 11:25-0500 Heart rate 106 /min Katheryn Lora APRN.AIDA Work Phone: [facility] 08-19-2023 11:25-0500 Respiratory rate 18 /min Katheryn Lora APRN.AIDA Work Phone: [facility] 08-19-2023 11:25-0500 SaO2% (BldA) [Mass fraction] 94 % Katheryn Lora APRN.MANAGER CONTACT Work Phone: [facility] 08-19-2023 11:25-0500 Systolic blood pressure 121 mm[Hg] Katheryn Lora APRN.MANAGER CONTACT Work Phone: [facility] 06-29-2023 14:52-0400 Body weight 82.1 kg Emilia Reeves MD Work Phone: [facility] 06-29-2023 14:52-0400 Diastolic blood pressure 80 mm[Hg] Emilia Reeves MD Work Phone: [facility] 06-29-2023 14:52-0400 Heart rate 76 /min Emilia Reeves MD Work Phone: [facility] 06-29-2023 14:52-0400 Respiratory rate 16 /min Emilia Reeves MD Work Phone: [facility] 06-29-2023 14:52-0400 Systolic blood pressure 126 mm[Hg] Emilia Reeves MD Work Phone: [facility] 12-10-2022 14:02-0500 Body weight 78.25 kg Emilia Reeves MD Work Phone: [facility] 12-10-2022 14:02-0500 Diastolic blood pressure 78 mm[Hg] Emilia Reeves MD Work Phone: [facility] 12-10-2022 14:02-0500 Heart rate 74 /min Emilia Reeves MD Work Phone: [facility] 12-10-2022 14:02-0500 Respiratory rate 16 /min Emilia Reeves MD Work Phone: [facility] 12-10-2022 14:02-0500 Systolic blood pressure 120 mm[Hg] Emilia Reeves MD Work Phone: [facility] 11-09-2022 15:29-0500 Body temperature 98.1 [degF] Emilia Reeves MD Work Phone: [facility] 11-09-2022 15:29-0500 Body weight 77.56 kg Emilia Reeves MD Work Phone: [facility] 11-09-2022 15:29-0500 Diastolic blood pressure 64 mm[Hg] Emilia Reeves MD Work Phone: [facility] 11-09-2022 15:29-0500 Heart rate 102 /min Emilia Reeves MD Work Phone: [facility] 11-09-2022 15:29-0500 Respiratory rate 18 /min Emilia Reeves MD Work Phone: [facility] 11-09-2022 15:29-0500 SaO2% (BldA) [Mass fraction] 94 % Emilia Reeves MD Work Phone: [facility] 11-09-2022 15:29-0500 Systolic blood pressure 118 mm[Hg] Emilia Reeves MD Work Phone: [facility] 06-02-2022 09:06-0400 Body weight 80.02 kg Emilia Reeves MD Work Phone: [facility] 06-02-2022 09:06-0400 Diastolic blood pressure 72 mm[Hg] Emilia Reeves MD Work Phone: [facility] 06-02-2022 09:06-0400 Heart rate 88 /min Emilia Reeves MD Work Phone: [facility] 06-02-2022 09:06-0400 Respiratory rate 16 /min Emilia Reeves MD Work Phone: [facility] 06-02-2022 09:06-0400 Systolic blood pressure 118 mm[Hg] Emilia Reeves MD Work Phone: [facility] 04-09-2022 14:57-0400 Body weight 77.11 kg Emilia Reeves MD Work Phone: [facility] 04-09-2022 14:57-0400 Diastolic blood pressure 64 mm[Hg] Emilia Reeves MD Work Phone: [facility] 04-09-2022 14:57-0400 Heart rate 78 /min Emilia Reeves MD Work Phone: [facility] 04-09-2022 14:57-0400 Respiratory rate 16 /min Emilia Reeves MD Work Phone: [facility] 04-09-2022 14:57-0400 Systolic blood pressure 108 mm[Hg] Emilia Reeves MD Work Phone: [facility] 04-03-2022 13:08-0400 Body height 172.7 cm Isablel Capone MD Work Phone: [facility] 04-03-2022 13:08-0400 Body temperature 98.2 [degF] Isabell Capone MD Work Phone: [facility] 04-03-2022 13:08-0400 Body weight 78.47 kg Isabell Capone MD Work Phone: [facility] 04-03-2022 13:08-0400 Diastolic blood pressure 58 mm[Hg] Isabell Capone MD Work Phone: [facility] 04-03-2022 13:08-0400 Heart rate 111 /min Isabell Capone MD Work Phone: [facility] 04-03-2022 13:08-0400 SaO2% (BldA) [Mass fraction] 94 % Isabell Capone MD Work Phone: [facility] 04-03-2022 13:08-0400 Systolic blood pressure 96 mm[Hg] Isabell Capone MD Work Phone: [facility] 02-26-2022 09:08-0400 Body weight 79.24 kg Emilia Reeves MD Work Phone: [facility] 02-26-2022 09:08-0400 Diastolic blood pressure 72 mm[Hg] Emilia Reeves MD Work Phone: [facility] 02-26-2022 09:08-0400 Heart rate 84 /min Emilia Reeves MD Work Phone: [facility] 02-26-2022 09:08-0400 Respiratory rate 16 /min Emilia Reeves MD Work Phone: [facility] 02-26-2022 09:08-0400 SaO2% (BldA) [Mass fraction] 95 % Emilia Reeves MD Work Phone: [facility] 02-26-2022 09:08-0400 Systolic blood pressure 124 mm[Hg] Emilia Reeves MD Work Phone: [facility] 01-23-2022 11:07-0400 Body temperature 98.01 [degF] Emilia Reeves MD Work Phone: [facility] 01-23-2022 11:07-0400 Body weight 77.11 kg Emilia Reeves MD Work Phone: [facility] 01-23-2022 11:07-0400 Diastolic blood pressure 66 mm[Hg] Emilia Reeves MD Work Phone: [facility] 01-23-2022 11:07-0400 Heart rate 74 /min Emilia Reeves MD Work Phone: [facility] 01-23-2022 11:07-0400 Respiratory rate 14 /min Emilia Reeves MD Work Phone: [facility] 01-23-2022 11:07-0400 Systolic blood pressure 128 mm[Hg] Emilia Reeves MD Work Phone: [facility] Encounters Encounter Date Encounter Type Care Provider Facility Start: 09-16-2023 Refill Emilia aguirre MD Work Phone: [facility] Procedures Date Procedure Procedure Detail Performing Clinician Start: 02-26-2022 PFIZER-BIONTECH COVID-19 VACCINE, AGE 12+ YR (DIAZ TOP) Emilia Reeves MD Work Phone: History of cholecystectomy Status post laparoscopic cholecystectomy Isabell Capone MD Work Phone: Plan of Treatment Date Care Activity Detail Author Start: 01-15-2031 Urine microalbumin profile [facility] Start: 06-25-2024 Hepatitis B screening Urine Albumin:Creatinine Ratio [facility] Start: 06-25-2024 Hepatitis B surface antibody level LDL Cholesterol [facility] Start: 12-28-2023 End: 02-27-2024 CBC panel - Blood by Automated count CBC Lab Routine Essential hypertension, benign Expected: 12/28/2023 (Approximate), Expires: 02/27/2024 [facility] Work Phone: Immunizations Immunization Date Immunization Notes Care Provider Eric magallanes 07-19-2023 COVID-19 vaccine, ag e 12+ yr, season (PFIZER-BIONTECH) Katheryn Lora CUT OUT WORKER.MANAGER CONTACT Work Phone: [facility] 07-19-2023 influenza, high dose seasonal, preservative-free Katheryn Lora CUT OUT WORKER.MANAGER CONTACT Work Phone: [facility] 08-18-2022 COVID-19 booster vaccine, age 12+ yr, bivalent (PFIZER-BIONTECH) Raman Mike CUT OUT WORKER.MANAGER CONTACT Work Phone: [facility] 07-23-2022 influenza, high dose seasonal, preservative-free Raman Mike CUT OUT WORKER.MANAGER CONTACT Work Phone: [facility] 07-23-2022 influenza virus vacc ine, unspecified formulation Emilia Reeves MD Work Phone: [facility] 02-26-2022 COVID-19 vaccine, ag e 12+ yr (PFIZER-BIONTECH - DIAZ TOP) Emilia Reeves MD Work Phone: [facility] 07-03-2021 influenza, high-dose , quadrivalent vaccine (FLUZONE HIGH DOSE QUADRIVALENT) Emilia Reeves MD Work Phone: [facility] 01-15-2021 tetanus toxoid, redu fabian diphtheria toxoid, and acellular pertussis vaccine, adsorbed Emilia Reeves MD Work Phone: [facility] 12-05-2020 COVID-19 vaccine, fu ll dose (MODERNA) Emilia Reeves MD Work Phone: [facility] Work Phone: 11-07-2020 COVID-19 vaccine, fu ll dose (MODERNA) Emilia Reeves MD Work Phone: [facility] Work Phone: 07-03-2020 influenza, high dose seasonal, preservative-free Emilia Reeves MD Work Phone: [facility] 09-12-2019 zoster vaccine recombinant Emilia Reeves MD Work Phone: [facility] 07-14-2019 influenza, high dose seasonal, preservative-free Emilia Reeves MD Work Phone: [facility] 07-08-2019 zoster vaccine recombinant Emilia Reeves MD Work Phone: [facility] 12-29-2017 pneumococcal polysaccharide vaccine, 23 valent Emilia Reeves MD Work Phone: [facility] 02-27-2017 pneumococcal conjuga te vaccine, 13 valent Emilia Reeves MD Work Phone: [facility] 10-05-2016 tetanus toxoid, redu fabian diphtheria toxoid, and acellular pertussis vaccine, adsorbed Emilia Reeves MD Work Phone: [facility] Work Phone: 09-11-2015 pneumococcal conjuga te vaccine, 13 valent Emilia Reeves MD Work Phone: [facility] 08-05-2015 influenza, seasonal, injectable Emilia Reeves MD Work Phone: [facility] 01-17-2014 tetanus and diphther ia toxoids, adsorbed, preservative free, for adult use (5 Lf of tetanus toxoid and 2 Lf of diphtheria toxoid) Emilia Reeves MD Work Phone: [facility] Work Phone: 07-04-2009 influenza virus vacc ine, unspecified formulation Emilia Reeves MD Work Phone: [facility] Work Phone: 06-23-2009 zoster vaccine, live Emilia baer MD Work Phone: [facility] Work Phone: 08-16-2008 influenza virus vacc ine, unspecified formulation Emilia Reeves MD Work Phone: [facility] Work Phone: 08-02-2007 influenza virus vacc ine, unspecified formulation Emilia Reeves MD Work Phone: [facility] Work Phone: 08-16-2006 influenza virus vacc ine, unspecified formulation Emilia Reeves MD Work Phone: [facility] 07-11-2004 influenza virus vacc ine, unspecified formulation Emilia Reeves MD Work Phone: [facility] Work Phone: 10-12-2000 pneumococcal polysaccharide vaccine, 23 valent Emilia Reeves MD Work Phone: [facility] Work Phone: 04-03-1999 diphtheria and tetan us toxoids, adsorbed for pediatric use Emilia Reeves MD Work Phone: [facility] Work Phone: Payers Date Payer Category Payer Medicare [employer] MEDICARE A ETNA MEDICARE PPO [id number] 2021-Present [phone] [address] [place] [address] PPO [id number] 2021 Medicare [employer] MEDICARE A ETNA MEDICARE PPO [id number] 2021-Present [phone] [address] [place] [address] PPO [id number] 2021 Medicare [id number] 2020 Medicare [id number] 1935 Unknown [id number] 1935 Unknown [id number] Social History Date Type Detail Facility Start: 11-24-2017 End: 08-18-2022 Tobacco smoking status NHIS Ex-smoker [facility] End: 10-11-1969 History of tobacco use Current smoker [facility] End: 10-11-1969 History of tobacco use Cigarette Smoker [facility] Start: 11-20-2021 End: 08-19-2023 Alcohol intake Current drinker of alcohol (finding) [facility] Start: 1935 Sex Assigned At Not on file [facility] Start: 10-29-2021 End: 11-28-2021 Exposure to SARS-CoV-2 (event) Unable to assess [facility] Start: 01-13-2022 End: 06-02-2022 Exposure to SARS-CoV-2 (event) Not sure [facility] Start: 04-17-2022 End: 04-27-2022 Exposure to SARS-CoV-2 (event) Yes [facility] Start: 11-24-2017 End: 06-29-2023 Cigarettes smoked current (pack per day) - Reported 2 [facility] Start: 11-24-2017 End: 08-18-2022 Tobacco use and exposure Smokeless tobacco non-user [facility] Start: 02-08-2023 End: 06-29-2023 Tobacco use panel [facility] Adult Depression Scr eening Assessment 0 [facility] Clinical Notes 08-27-2013 to 09-16-2023 Telephone Encounter - Emilia Reeves MD - 09/16/2023 2:46 PM ESTTelephone Encounter - Petra Stein - 09/16/2023 10:38 AM ESTPatient InstructionsCarolyn Romero Ma - 02/26/2022 9:18 AM EDT Note Date & Type Note Facility 09-16-2023 Miscellaneous Notes OK to refill as ordered Emilia Reeves MD Patient has been identified by name and date of : Yes Requested Prescriptions Pending Prescriptions Disp Refills FLUoxetine (PROZAC) 20 mg capsule 90 capsule 1 Sig: Take 1 capsule by mouth once daily. Take along with 40 mg capsule RX INSTRUCTIONS: Patient aware RX will be sent to pharmacy. No need to notify patient. Petra Aldridge documented in this encounter [facility] 08-30-2023 Miscellaneous Notes The following approved medication requests have been transmitted electronically. Requested Prescriptions Pending Prescriptions Disp Refills dutasteride (AVODART) 0.5 mg capsule 90 capsule 3 Sig: Take 1 capsule by mouth once daily. Raman Mckeon APRN.CNP Patient has been identified by name and date of : Yes Requested Prescriptions Pending Prescriptions Disp Refills dutasteride (AVODART) 0.5 mg capsule Sig: Take 1 capsule by mouth once daily. RX INSTRUCTIONS: Patient aware RX will be sent to pharmacy. No need to notify patient. Shelby Xavier documented in this encounter [facility] 08-20-2023 Miscellaneous Notes Patient notified.Olga Gimenez LPN Please notify of negative rsv, flu, and covid test. Continue comfort measures for symptoms as you would for a cold. Any worsening symptoms follow up with PCP or ER. Katheryn Lora APRN.CNP documented in this encounter [facility] 08-19-2023 Note HNO ID: [id number] Author: Katheryn Lora APRN.CNP Service: ? Author Type: Nurse Practitioner Type: Progress Notes Filed: 08/19/2023 11:45 AM Note Text: Subjective The history is provided by the patient. No sign language teacher was used. DAVID Mcdermott is a 87 year old male who presents today for CC of cough, congestion, sore throat for 2 days. He was on a cruise last week. He has used mucinex. Vaccinated for covid BP 121/79 Pulse 106 Temp 36.9 ?C (98.5 ?F) Resp 18 Wt 82.6 kg (182 lb) SpO2 94% BMI 27.67 kg/m? 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 Anemia, unspecified 05/01/2009 Hct 34.9% in 04-18, 37.7% in 05-19 (WBC 4.9, PLT 276) Iron 23, Ferritin 968, NL B12 and folate in 04-18: ACD LDH 370 in 04-18 Arleen colored urine with a TBR in serum of 1.88 in 04-18 CT abd/pelvis 04-18: liver/kidney cysts, splenomegaly and 2 small (5 mm), non-calc nodules at L lung base-repeat 6 mo SPEP negative in 04-18 HBsAg neg, Hep A positive, JUAN MIGUEL negative, HIV western blot negative in 04-18 Broken toe Hyperplasia of prostate Lumbago 10/14/2005 Pure hypercholesterolemia Unspecified essential hypertension I have confirmed and edited as necessary, the [facility] Review of Systems Constitutional: Positive for malaise/fatigue. Negative for chills and fever. HENT: Positive for congestion. Negative for ear pain, sinus pain and sore throat. Respiratory: Positive for cough. Negative for sputum production, shortness of breath and wheezing. Cardiovascular: Negative for chest pain. Musculoskeletal: Positive for myalgias. Neurological: Negative for headaches. Objective Physical Exam Vitals and nursing note reviewed. Constitutional: Appearance: He is not toxic-appearing. HENT: Head: Normocephalic and atraumatic. Right Ear: Tympanic membrane, ear canal and external ear normal. Left Ear: Tympanic membrane, ear canal and external ear normal. Nose: Mucosal edema, congestion and rhinorrhea present. Right Sinus: No maxillary sinus tenderness or frontal sinus tenderness. Left Sinus: No maxillary sinus tenderness or frontal sinus tenderness. Mouth/Throat: Pharynx: Uvula midline. No oropharyngeal exudate or posterior oropharyngeal erythema. Tonsils: No tonsillar abscesses. Cardiovascular: Rate and Rhythm: Normal rate and regular rhythm. Heart sounds: Normal heart sounds. Pulmonary: Effort: Pulmonary effort is normal. Breath sounds: Normal breath sounds. No decreased breath sounds, wheezing, rhonchi or rales. Lymphadenopathy: Head: Right side of head: No submental, submandibular, tonsillar or preauricular adenopathy. Left side of head: No submental, submandibular, tonsillar or preauricular adenopathy. Cervical: No cervical adenopathy. Right cervical: No superficial cervical adenopathy. Left cervical: No superficial cervical adenopathy. Neurological: Mental Status: He is alert. ASSESSMENT/PLAN: 1. URI with cough and congestion - ICD9: 465.9, ICD10: J06.9 - Discussed viral etiology and rationale for treatment. - Symptomatic treatment with prn analgesia - Supportive care with fluids and rest Home isolation Testing ordered Comfort measures discussed - see patient instructions. When to seek higher level of care Notified in 12-24 hours with results, available on [employer] - COVID AND INFLUENZA A/B AND RSV NAAT, ROUTINE Diagnosis and treatment plan were discussed and questions were answered to the patient's satisfaction. Pt acknowledged understanding of concepts and follow up plan. Specific signs and symptoms that would indicate the need for higher level of care were discussed in detail warranting prompt ER evaluation. Katheryn Lora APRN.AIDA [facility] 08-19-2023 Instructions Katheryn Lora APRN.[facility] - 08/19/2023 11:42 AM EST Covid, rsv, and influenza test ordered You will be notified in 12-24 hours, results available on [employer] Home isolation until results are back Rest, increase water intake Tylenol as needed for fever or pain. Salt water gargles, chloraseptic spray or lozenges as needed for sore throat. Warm beverages, honey. Nasal saline spray as needed Cool mist humidifier at night Tylenol (generic acetaminophen) 500 mg-2 tabs every 8 hrs. as needed for fever and aches -Mucinex (generic is fine) Guaifenesin 1200 mg twice daily to help with cough and to thin out mucus * Seek medical care immediately, call 911, go to ER if you have chest pain, difficulty breathing, shortness of breath, inability to swallow. documented in this encounter [facility] 08-19-2023 History of Present illness Narrative Subjective The history is provided by the patient. No sign language teacher was used. HPI Edilberto Mcdermott is a 87 year old male who presents today for CC of cough, congestion, sore throat for 2 days. He was on a cruise last week. He has used mucinex. 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 Anemia, unspecified 05/01/2009 Hct 34.9% in 04-18, 37.7% in 05-19 (WBC 4.9, PLT 276) Iron 23, Ferritin 968, NL B12 and folate in 04-18: ACD LDH 370 in 04-18 Arleen colored urine with a TBR in serum of 1.88 in 04-18 CT abd/pelvis 04-18: liver/kidney cysts, splenomegaly and 2 small (5 mm), non-calc nodules at L lung base-repeat 6 mo SPEP negative in 04-18 HBsAg neg, Hep A positive, JUAN MIGUEL negative, HIV western blot negative in 04-18 Broken toe Hyperplasia of prostate Lumbago 10/14/2005 Pure hypercholesterolemia Unspecified essential hypertension I have confirmed and edited as necessary, the [facility] Review of Systems Constitutional: Positive for malaise/fatigue. Negative for chills and fever. HENT: Positive for congestion. Negative for ear pain, sinus pain and sore throat. Respiratory: Positive for cough. Negative for sputum production, shortness of breath and wheezing. Cardiovascular: Negative for chest pain. Musculoskeletal: Positive for myalgias. Neurological: Negative for headaches. Objective Physical Exam Vitals and nursing note reviewed. Constitutional: Appearance: He is not toxic-appearing. HENT: Head: Normocephalic and atraumatic. Right Ear: Tympanic membrane, ear canal and external ear normal. Left Ear: Tympanic membrane, ear canal and external ear normal. Nose: Mucosal edema, congestion and rhinorrhea present. Right Sinus: No maxillary sinus tenderness or frontal sinus tenderness. Left Sinus: No maxillary sinus tenderness or frontal sinus tenderness. Mouth/Throat: Pharynx: Uvula midline. No oropharyngeal exudate or posterior oropharyngeal erythema. Tonsils: No tonsillar abscesses. Cardiovascular: Rate and Rhythm: Normal rate and regular rhythm. Heart sounds: Normal heart sounds. Pulmonary: Effort: Pulmonary effort is normal. Breath sounds: Normal breath sounds. No decreased breath sounds, wheezing, rhonchi or rales. Lymphadenopathy: Head: Right side of head: No submental, submandibular, tonsillar or preauricular adenopathy. Left side of head: No submental, submandibular, tonsillar or preauricular adenopathy. Cervical: No cervical adenopathy. Right cervical: No superficial cervical adenopathy. Left cervical: No superficial cervical adenopathy. Neurological: Mental Status: He is alert. ASSESSMENT/PLAN: 1. URI with cough and congestion - ICD9: 465.9, ICD10: J06.9 - Discussed viral etiology and rationale for treatment. - Symptomatic treatment with prn analgesia - Supportive care with fluids and rest Home isolation Testing ordered Comfort measures discussed - see patient instructions. When to seek higher level of care Notified in 12-24 hours with results, available on mychart - COVID & INFLUENZA A/B & RSV NAAT, ROUTINE Diagnosis and treatment plan were discussed and questions were answered to the patient's satisfaction. Pt acknowledged understanding of concepts and follow up plan. Specific signs and symptoms that would indicate the need for higher level of care were discussed in detail warranting prompt ER evaluation. Katheryn Lora APRN.MANAGER CONTACT documented in this encounter [facility] 06-29-2023 Note HNO ID: [id number] Author: Emilia Reeves MD Service: ? Author Type: Physician Type: Progress Notes Filed: 06/29/2023 6:03 PM Note Text: Chief Complaint Follow up HPI Edilberto Mcdermott is a 87 year old male who presents here today for 6 month follow up. Went on river cruise in [place], going on [place] cruise next month. No bowel, Gi, or urinary issues. Uses Avodart 0.5 mg daily and Uroxatral 10 mg daily. Taking Protonix 40 mg daily for GERD with occ Pepto Bismol. DM: Taking Trulicity 1.5 mg weekly, Metformin 500 mg 2 pills BID and Amaryl 2 mg daily. No hypoglycemic episodes, no neuropathy sx. HTN: Taking Lisinopril 40 mg daily and Norvasc 5 mg daily. No chest pains, dizziness, or SOB. Depression: Taking Prozac 20 mg and 40 mg daily. Still feels poorly motivated and poor energy. Lipid/CVA: Taking Lipitor 80 mg daily and Eliquis 2.5 mg 2 pill BID. Pt followed with Dr. Rick at [facility] due to a mass on his chest. 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 Plan is due to pt age and co-morbidities he was not a radical extensive surgical resection. Refer to radiation oncology consultation. Refer to palliative medicine for tumor type pain. He was given ativan to help with sleep.They currently have an appt with Radiation Oncology tomorrow at [facility] to discuss. Past medical history, appointments, medications, allergies reviewed. 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 Anemia, unspecified 05/01/2009 Hct 34.9% in 04-18, 37.7% in 05-19 (WBC 4.9, PLT 276) Iron 23, Ferritin 968, NL B12 and folate in 04-18: ACD LDH 370 in 04-18 Arleen colored urine with a TBR in serum of 1.88 in 04-18 CT abd/pelvis 04-18: liver/kidney cysts, splenomegaly and 2 small (5 mm), non-calc nodules at L lung base-repeat 6 mo SPEP negative in 04-18 HBsAg neg, Hep A positive, JUAN MIGUEL negative, HIV western blot negative in 04-18 Broken toe Hyperplasia of prostate Lumbago 10/14/2005 Pure hypercholesterolemia Unspecified essential hypertension Previous Surgical History PAST SURGICAL HISTORY Procedure Laterality Date COLONOSCOPY FLX DX W/COLLJ SPEC WHEN PFRMD 04/09/2009 PAST SURGICAL HISTORY OF lipoma, neck PAST SURGICAL HISTORY OF 06/11/1980 lumbar laminotomy REMOVAL GALLBLADDER 03/24/2022 Family History FAMILY HISTORY Problem Relation Age of Onset other (Melanoma) Mother Diabetes Father lung cancer/chf/starvation Diabetes Sister Diabetes Paternal Grandfather Patient Allergies ALLERGIES Allergen Reactions Lachydrin [Other] Rash Penicillins Current Medications Current Outpatient Medications on File Prior to Visit Medication Sig dulaglutide (TRULICITY) 1.5 mg/0.5 mL pen injector Inject 1.5 mg subcutaneously one time a week. Inject once per week. Discard Pen After FLUoxetine (PROZAC) 20 mg capsule Take 1 capsule by mouth once daily. Take along with 40 mg capsule FLUoxetine (PROZAC) 40 mg capsule take 1 capsule by mouth once daily apixaban (ELIQUIS) 2.5 mg tab(s) Take 2 tablets by mouth twice daily. ondansetron orally disintegrating (ZOFRAN ODT) 4 mg disintegrating tablet Take 1 tablet by mouth every 6 hours as needed for nausea/vomiting. pantoprazole DR (PROTONIX) 40 mg tablet Take 1 tablet by mouth daily before breakfast. Take on empty stomach, 1/2 hr before meal. glimepiride (AMARYL) 2 mg tablet Take 1 tablet by mouth daily with breakfast. alfuzosin SR (UROXATRAL) 10 mg 24 hr tablet Take 1 tablet by mouth once daily. lisinopril (ZESTRIL, PRINIVIL) 40 mg tablet Take 1 tablet by mouth once daily. atorvastatin (LIPITOR) 80 mg tablet Take 1 tablet by mouth once daily. amLODIPine (NORVASC) 5 mg tablet take 1 tablet by mouth once daily doxycycline (VIBRA-TABS) 100 mg tablet Take 1 tablet by mouth twice daily. metFORMIN ER (GLUCOPHAGE XR) 500 mg 24 hr tablet Take 2 tablets by mouth with breakfast betamethasone dipropionate, augmented (DIPROLENE) 0.05 % cream Dr. Bridger Lomax. Apply as needed for eczema. multivitamin tablet Take 1 tablet by mouth once daily. diphenhydrAMINE (BENADRYL) 25 mg capsule Take 1 capsule by mouth every 6 hours as needed. dutasteride (AVODART) 0.5 mg capsule Take 1 capsule by mouth once daily. No current facility-administered medications on file prior to visit. Social History Social History Tobacco Use Smoking status: Former Packs/day: 2.00 Years: 10.00 Additional pack years: 0.00 Total pack years: 20.00 Types: Cigarettes Quit date: 10/11/1969 Years since quittin.7 Smokeless tobacco: Never Vaping Use Vaping Use: Never used Substance Use Topics Alcohol use: Yes Comment: ocass EXAM: There were no vitals taken for this visit. General Appearance: Well appearing, alert, in no acute distress, well-hydrated, well nourished.. Lungs: Lungs clear to ausc (more content not included)... [facility] 06-29-2023 History of Present illness Narrative Chief Complaint Follow up HPI Edilberto Mcdermott is a 87 year old male who presents here today for 6 month follow up. Went on river cruise in [place], going on [place] cruise next month. No bowel, Gi, or urinary issues. Uses Avodart 0.5 mg daily and Uroxatral 10 mg daily. Taking Protonix 40 mg daily for GERD with occ Pepto Bismol. DM: Taking Trulicity 1.5 mg weekly, Metformin 500 mg 2 pills BID and Amaryl 2 mg daily. No hypoglycemic episodes, no neuropathy sx. HTN: Taking Lisinopril 40 mg daily and Norvasc 5 mg daily. No chest pains, dizziness, or SOB. Depression: Taking Prozac 20 mg and 40 mg daily. Still feels poorly motivated and poor energy. Lipid/CVA: Taking Lipitor 80 mg daily and Eliquis 2.5 mg 2 pill BID. Pt followed with Dr. Rick at [facility] due to a mass on his chest. 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 Plan is due to pt age and co-morbidities he was not a radical extensive surgical resection. Refer to radiation oncology consultation. Refer to palliative medicine for tumor type pain. He was given ativan to help with sleep.They currently have an appt with Radiation Oncology tomorrow at [facility] to discuss. Past medical history, appointments, medications, allergies reviewed. 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 Anemia, unspecified 05/01/2009 Hct 34.9% in 04-18, 37.7% in 05-19 (WBC 4.9, PLT 276) Iron 23, Ferritin 968, NL B12 and folate in 04-18: ACD LDH 370 in 04-18 Arleen colored urine with a TBR in serum of 1.88 in 04-18 CT abd/pelvis 04-18: liver/kidney cysts, splenomegaly and 2 small (5 mm), non-calc nodules at L lung base-repeat 6 mo SPEP negative in 04-18 HBsAg neg, Hep A positive, JUAN MIGUEL negative, HIV western blot negative in 04-18 Broken toe Hyperplasia of prostate Lumbago 10/14/2005 Pure hypercholesterolemia Unspecified essential hypertension Previous Surgical History PAST SURGICAL HISTORY Procedure Laterality Date COLONOSCOPY FLX DX W/COLLJ SPEC WHEN PFRMD 04/09/2009 PAST SURGICAL HISTORY OF lipoma, neck PAST SURGICAL HISTORY OF 06/11/1980 lumbar laminotomy REMOVAL GALLBLADDER 03/24/2022 Family History FAMILY HISTORY Problem Relation Age of Onset other (Melanoma) Mother Diabetes Father lung cancer/chf/starvation Diabetes Sister Diabetes Paternal Grandfather Patient Allergies ALLERGIES Allergen Reactions Lachydrin [Other] Rash Penicillins Current Medications Current Outpatient Medications on File Prior to Visit Medication Sig dulaglutide (TRULICITY) 1.5 mg/0.5 mL pen injector Inject 1.5 mg subcutaneously one time a week. Inject once per week. Discard Pen After FLUoxetine (PROZAC) 20 mg capsule Take 1 capsule by mouth once daily. Take along with 40 mg capsule FLUoxetine (PROZAC) 40 mg capsule take 1 capsule by mouth once daily apixaban (ELIQUIS) 2.5 mg tab(s) Take 2 tablets by mouth twice daily. ondansetron orally disintegrating (ZOFRAN ODT) 4 mg disintegrating tablet Take 1 tablet by mouth every 6 hours as needed for nausea/vomiting. pantoprazole DR (PROTONIX) 40 mg tablet Take 1 tablet by mouth daily before breakfast. Take on empty stomach, 1/2 hr before meal. glimepiride (AMARYL) 2 mg tablet Take 1 tablet by mouth daily with breakfast. alfuzosin SR (UROXATRAL) 10 mg 24 hr tablet Take 1 tablet by mouth once daily. lisinopril (ZESTRIL, PRINIVIL) 40 mg tablet Take 1 tablet by mouth once daily. atorvastatin (LIPITOR) 80 mg tablet Take 1 tablet by mouth once daily. amLODIPine (NORVASC) 5 mg tablet take 1 tablet by mouth once daily doxycycline (VIBRA-TABS) 100 mg tablet Take 1 tablet by mouth twice daily. metFORMIN ER (GLUCOPHAGE XR) 500 mg 24 hr tablet Take 2 tablets by mouth with breakfast betamethasone dipropionate, augmented (DIPROLENE) 0.05 % cream Dr. Bridger Lomax. Apply as needed for eczema. multivitamin tablet Take 1 tablet by mouth once daily. diphenhydrAMINE (BENADRYL) 25 mg capsule Take 1 capsule by mouth every 6 hours as needed. dutasteride (AVODART) 0.5 mg capsule Take 1 capsule by mouth once daily. No current facility-administered medications on file prior to visit. Social History Social History Tobacco Use Smoking status: Former Packs/day: 2.00 Years: 10.00 Additional pack years: 0.00 Total pack years: 20.00 Types: Cigarettes Quit date: 10/11/1969 Years since quittin.7 Smokeless tobacco: Never Vaping Use Vaping Use: Never used Substance Use Topics Alcohol use: Yes Comment: ocass EXAM: There were no vitals taken for this visit. General Appearance: Well appearing, alert, in no acute distress, well-hydrated, well nourished.. Lungs: Lungs clear to auscultation. No wheezing, rhonchi, rales.. Heart: RRR without murmur, gallop, or rubs. No ectopy. Health Maintenance List Diabetic Foot Exam Never done Advance Directive Discussion Never done Covid-19 Vaccine(6 - Moderna series) due on 12/16/2022 Urine Albumin:Creatinine Ratio due on 02/20/2023 HbA1C due on 06/03/2023 Influenza Vaccine(1) due on 06/11/2023 Dilated Retinal Exam due on 07/06/2023 LDL Cholesterol due on 12/04/2023 DTaP,Tdap,Td Vaccine(5 - Td or Tdap) due on 01/15/2031 Shingrix Vaccine Completed Pneumococcal Vaccine: 65+ Completed Data reviewed Appointment on 06/25/2023 Component Date Value Cholesterol, Total 06/25/2023 94 Triglyceride 06/25/2023 83 HDL Cholesterol 06/25/2023 36 (L) Non HDL Cholesterol 06/25/2023 58 Fasting Time 06/25/2023 14 VLDL Cholesterol 06/25/2023 17 TC:HDL Ratio 06/25/2023 2.61 LDL Cholesterol 06/25/2023 41 LDL:HDL Ratio 06/25/2023 1.14 Protein, Total 06/25/2023 6.8 Albumin 06/25/2023 4.0 Calcium, Total 06/25/2023 9.2 Bilirubin, Total 06/25/2023 0.6 Alkaline Phosphatase 06/25/2023 84 AST 06/25/2023 26 ALT 06/25/2023 39 Glucose 06/25/2023 126 (H) BUN 06/25/2023 13 Creatinine 06/25/2023 0.90 Sodium 06/25/2023 141 Potassium 06/25/2023 4.9 Chloride 06/25/2023 104 CO2 06/25/2023 21 (L) Anion Gap 06/25/2023 16 Estimated Glomerular Preston* 06/25/2023 83 Hemoglobin A1C 06/25/2023 7.2 (H) Estimated Average Glucose 06/25/2023 160 Creatinine, Ur Random (U* 06/25/2023 188.5 Albumin, Urine Random 06/25/2023 <12.0 Albumin/Creat Ratio 06/25/2023 <6 ASSESSMENT/PLAN: 1. Pure hypercholesterolemia - ICD9: 272.0, ICD10: E78.00 (primary diagnosis) Continue current medications. - COMP METABOLIC PANEL - LIPID PANEL BASIC 2. Type 2 diabetes mellitus without complication, without long-term current use of insulin (HCC) - ICD9: 250.00, ICD10: E11.9 Controlled Continue current medications. - COMP METABOLIC PANEL - HGB A1C - LIPID PANEL BASIC 3. Essential hypertension, benign - ICD9: 401.1, ICD10: I10 Continue current medications. - COMP METABOLIC PANEL - CBC - LIPID PANEL BASIC 4. History of CVA (cerebrovascular accident) - ICD9: V12.54, ICD10: Z86.73 Recommend benadryl for seep rather than ativan Follow up in 6 months Medical Decision Making: Problems: Moderate: 2+ stable chronic illnesses Data: Unique test result(s) reviewed: 3+ Unique test(s) ordered: 3+ Risk: Moderate: Drug management Medical Decision Making Level: 4 - Moderate Emilia Reeves MD documented in this encounter [facility] 06-07-2023 Miscellaneous Notes Pt notified and voiced understanding. Carolyn Romero Ma OK to refill as ordered He should be on the 1.5 mg dose Emilia Reeves MD Please verify the mg as patient's was not sure. Patient is now out of the medication. Patient has been identified by name and date of : Yes Requested Prescriptions Pending Prescriptions Disp Refills dulaglutide (TRULICITY) 0.75 mg/0.5 mL pen injector 4 Each 0 Sig: Inject 0.75 mg subcutaneously one time a week. Inject dose once per week. Discard Pen After RX INSTRUCTIONS: Patient requesting a call when RX is approved and sent to the pharmacy. Cherelle Sahu documented in this encounter [facility] 03-24-2023 Miscellaneous Notes The following approved medication requests have been transmitted electronically. Requested Prescriptions Signed Prescriptions Disp Refills FLUoxetine (PROZAC) 20 mg capsule 90 capsule 1 Sig: Take 1 capsule by mouth once daily. Take along with 40 mg capsule Authorizing Provider: FAUSTINO CHAKRABORTY APRN.CNP Please send rx Fina Wen Ma Patients is calling and needs patients medication renew as the pharmacy wont refill it. It's the 20 mg Prozac. Please call patients spouse and advise documented in this encounter [facility] 02-08-2023 Note HNO ID: [id number] Author: Emilia Reeves MD Service: ? Author Type: Physician Type: Progress Notes Filed: 02/08/2023 6:40 PM Note Text: Chief Complaint Patient presents with: Hospital F/U: HPI Edilberto Mcdermott is a 87 year old male who presents here today for ER Follow Up.. Pt presented to [facility] ER on 01/29/23 for fall. Here today with his . Pt unsure of exactly what happened, but was trying to get out of bed and got tripped up, causing him to lose his balance and falling backwards. He ended up hitting his back, neck and head. Thinks he may have been trying to put his slippers on. They are now using a device to help him get up out of bed which has been helpful. Falls - Continues to use cane and rollator to ambulate. Has done PT in the past, but this has been completed. [facility] Lives in [facility]isted Living. Does admit he gets tired pretty quickly when standing or walking. Takes breaks. Pain - Has intermittent pain in his mid upper back and neck on occasion. Tends to hurt with certain movements. Pain in his neck at times will cause him to have a headache. Continues to still have some scabs from the fall. Due to pt bleeding after the fall, his Eliquis was decreased to 2.5 mg bid. They are currently taking 5 mg 0.5 tab bid. GI/GERD - Pt reports that he still has some intermittent issues with GERD, upset stomach, nausea and vomiting. This seems to occur in the evening after eating. Most recently he did vomit up his dinner. Takes Protonix 40 mg once daily. has also given him Pepto Bismol when his symptoms are flared up. Wondering if there's something he can take for nausea and vomiting. Hem/Onc - Pt followed with Dr. Rick at [facility] due to a mass on his chest. 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 Plan is due to pt age and co-morbidities he was not a radical extensive surgical resection. Refer to radiation oncology consultation. Refer to palliative medicine for tumor type pain. They currently have an appt with Radiation Oncology tomorrow at [facility] to discuss. Will be going to hospital for [facility] support groups that their daughter told them about Below copied from [facility] [employer]: Chief Complaint: Fall Narrative Narrative: 87-year-old male here for follow-up. Notes a mechanical fall from standing. Notes he fell backward hit his head. Notes he is on blood thinners. Endorses neck pain as well. Denies focal weakness. Last blood thinner dose was yesterday. Notes he tripped over something today when try to get out of bed. Notes he fell backwards hitting his back and injuring the back of his head. Brain CT 01/29/23 10:39 IMPRESSION: Chronic involutional changes of the brain. Stable encephalomalacia in the posterior right occipital lobe. Stable lacunar infarct in the right thalamus. Cervical Spine CT 01/29/23 10:39 IMPRESSION: Multilevel degenerative changes, as described above. There has been no change since prior study. Lumbar Spine CT 01/29/23 10:39 IMPRESSION: Multilevel degenerative changes, as described above. Thoracic Spine CT 01/29/23 10:39 IMPRESSION: Degenerative changes. There has been no change as compared to prior study. Medical decision making narrative: Chief Complaint: Fall External records reviewed: brain CT from 2020 shows chronic involutional changes, no acute process after fall MDM: Patient was hemodynamically stable, afebrile, nontoxic-appearing. Nonfocal neurologic exam. I considered the following differential diagnosis: Intracranial abnormality, traumatic injury to the cervical, thoracic and lumbar spine CT scan showed no acute traumatic injuries. He was given Tylenol for pain control. Discouraged from taking ibuprofen given presence of blood thinners. Tertiary exam was unremarkable, patient ambulated well he is appropriate for discharge home Factors affecting care: On Eliquis secondary to A-fib Social determinants of health: Elderly History obtained from others: The patient's Shared decision making: I will have a discussion with the patient and or visitors regarding risk/benefits of further testing or admission. They will be made aware of of the risk/benefits inherent in this decision they will be given the opportunity to voice understanding. Past medical history, appointments, medications, allergies reviewed. 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 [facility] 02-04-2023 Miscellaneous Notes notified. Radha Mackay LPN Message left for pt to call back. Carolyn Romero Ma I would suggest Tylenol for pain as needed; may use heat or ice also Emilia Reeves MD ER records scanned in 01/29 Fina Wen Ma Patti is calling on behalf of Jim. Flores fell about a week ago and injured his back. He was seen at the [facility] ER. Patti would like to know what Mark can do for the pain. I do have him scheduled for an appointment February 08 for a follow up. Also, Patti said the cancer doctor at [facility] also detected a sarcoma on Mark's chest. She described as a slow tumor. She wanted Dr. Reeves to be aware. documented in this encounter [facility] 02-03-2023 Miscellaneous Notes The following approved medication requests have been transmitted electronically. Requested Prescriptions Pending Prescriptions Disp Refills FLUoxetine (PROZAC) 40 mg capsule 30 capsule 5 Sig: Take 1 capsule by mouth once daily. Faustino Chakraborty APRN.MANAGER CONTACT Pharmacy verified in [facility] Patient has been identified by name and date of : Yes Patient aware RX will be sent to pharmacy. No need to notify patient. Patient phones for refill(s): Requested Prescriptions Pending Prescriptions Disp Refills FLUoxetine (PROZAC) 40 mg capsule 30 capsule 5 Sig: Take 1 capsule by mouth once daily. Date of last office visit : 12/10/2022 labs-12/04/22 Date of next office visit : 06/29/2023 Last 2 Encounter Wt Readings: Date: Wt: 12/10/2022 78.2 kg (172 lb 8 oz) 11/09/2022 77.6 kg (171 lb) Not applicable Please advise. Maci Robison Pss documented in this encounter [facility] 12-28-2022 Miscellaneous Notes The following approved medication requests have been transmitted electronically. Requested Prescriptions Pending Prescriptions Disp Refills pantoprazole DR (PROTONIX) 40 mg tablet 90 tablet 3 Sig: Take 1 tablet by mouth daily before breakfast. Take on empty stomach, 1/2 hr before meal. Raman Mckeon APRN.AIDA Patient has been identified by name and date of : Yes Requested Prescriptions Pending Prescriptions Disp Refills pantoprazole DR (PROTONIX) 40 mg tablet 90 tablet 3 Sig: Take 1 tablet by mouth daily before breakfast. Take on empty stomach, 1/2 hr before meal. RX INSTRUCTIONS: Patient requested 90 days with refills. Out of medication - please send today. Patient aware RX will be sent to pharmacy. No need to notify patient. Nolvia Virgen Pss documented in this encounter [facility] 12-10-2022 Note HNO ID: [id number] Author: Emilia Reeves MD Service: ? Author Type: Physician Type: Progress Notes Filed: 12/10/2022 2:26 PM Note Text: Chief Complaint Patient presents with: F/U 3 Month HPI Edilberto Mcdermott is a 87 year old male who presents here today for 3 month follow up. Pt no showed appt 11/17/22. Here with his . Has an advanced directive. Cough has improved. No bowel, Gi, or urinary issues. Has seen Urologist at [facility] Dr. Cee. Taking Avodart 0.5 mg daily and Uroxatral 10 mg daily. Uses Viagra prn ED. CVA/Lipid: Tries to watch diet and exercise with walking at the [employer]. His friend will take him or their daughter will come over and take him. He admits that if he has a choice over napping or walking he will take the nap. He is taking Lipitor 80 mg daily. Denies any falls, uses a quad cane. Depression/DEMETRIO: Prozac increased last visit to 60 mg daily due to issues with mind racing, trouble winding down at night. Sx started after having CVA and have continued since. Admits he is depressed over being depressed. Most of his moods and depression are because he can't do what he used to. He has had some issues with night sweats but that was a problems before starting the Prozac. DM: Does not check BS at home, denies any hypoglycemic episodes or neuropathy sx. Taking Amaryl 2 mg daily, Trulicity 0.75 mg weekly, and Metformin 500 mg 2 pills once daily. HTN: No chest pains, dizziness, or SOB. Does not check BP. Taking Lisinopril 40 mg daily and Norvasc 5 mg daily. He follows with Cardio Dr. Mojica. He did have Echo done 11/25/22. Is going to be seeing Dr. Edgar Nguyen to evaluate the lump on the chest. It is not getting bigger, no pain on palpation. Follows with Dr. Bridger Lomax, Derm. 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 He is seeing Dr. Falcon, ENT every 6 months now. Past medical history, appointments, medications, allergies reviewed. 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 Anemia, unspecified 05/01/2009 Hct 34.9% in 04-18, 37.7% in 05-19 (WBC 4.9, PLT 276) Iron 23, Ferritin 968, NL B12 and folate in 04-18: ACD LDH 370 in 04-18 Arleen colored urine with a TBR in serum of 1.88 in 04-18 CT abd/pelvis 04-18: liver/kidney cysts, splenomegaly and 2 small (5 mm), non-calc nodules at L lung base-repeat 6 mo SPEP negative in 04-18 HBsAg neg, Hep A positive, JUAN MIGUEL negative, HIV western blot negative in 04-18 Broken toe Hyperplasia of prostate Lumbago 10/14/2005 Pure hypercholesterolemia Unspecified essential hypertension Previous Surgical History PAST SURGICAL HISTORY Procedure Laterality Date COLONOSCOPY FLX DX W/COLLJ SPEC WHEN PFRMD 04/09/2009 PAST SURGICAL HISTORY OF lipoma, neck PAST SURGICAL HISTORY OF 06/11/1980 lumbar laminotomy REMOVAL GALLBLADDER 03/24/2022 Family History FAMILY HISTORY Problem Relation Age of Onset other (Melanoma) Mother Diabetes Father lung cancer/chf/starvation Diabetes Sister Diabetes Paternal Grandfather Patient Allergies ALLERGIES Allergen Reactions Lachydrin [Other] Rash Penicillins Current Medications Current Outpatient Medications on File Prior to Visit Medication Sig atorvastatin (LIPITOR) 80 mg tablet Take 1 tablet by mouth once daily. amLODIPine (NORVASC) 5 mg tablet take 1 tablet by mouth once daily doxycycline (VIBRA-TABS) 100 mg tablet Take 1 tablet by mouth twice daily. FLUoxetine (PROZAC) 20 mg capsule Take 1 capsule by mouth once daily. Take along with [address] (PROTONIX) 40 mg tablet Take 1 tablet by mouth daily before breakfast. Take on empty stomach, 1/2 hr before meal. FLUoxetine (PROZAC) 40 mg capsule Take 1 capsule by mouth once daily. dulaglutide (TRULICITY) 0.75 mg/0.5 mL pen injector Inject 0.75 mg subcutaneously one time a week. Inject dose once per week. Discard Pen After dulaglutide (TRULICITY) 1.5 mg/0.5 mL pen injector Inject 1.5 mg subcutaneously one time a week. Inject once per week. Discard Pen After glimepiride (AMARYL) 2 mg tablet take 1 tablet by mouth once daily with breakfast lisinopril (ZESTRIL, PRINIVIL) 40 mg tablet Take 1 tablet by mouth once daily. metFORMIN ER (GLUCOPHAGE XR) 500 mg 24 hr tablet Take 2 tablets by mouth with breakfast alfuzosin SR (UROXATRAL) 10 mg 24 hr tablet Take 1 tablet by mouth once daily. betamethasone dipropionate, augmented (DIPROLENE) 0.05 % cream Dr. Bridger Lomax. Apply as needed for eczema. apixaban (ELIQUIS) 5 mg tab(s) Take 1 tablet by mouth twice daily. multivitamin tablet Take 1 tablet by mouth once daily. diphenhydrAMINE (BENADRYL) 25 mg capsule Take 1 capsule by mouth every 6 hours as needed. dutasteride (AVODART) 0.5 mg capsule Take 1 capsule by mouth once daily. No current facility-administered medications on file prior to visit. Social (more content not included)... [facility] 12-10-2022 History of Present illness Narrative Chief Complaint Patient presents with: F/U 3 Month HPI Edilberto Mcdermott is a 87 year old male who presents here today for 3 month follow up. Pt no showed appt 11/17/22. Here with his . Has an advanced directive. Cough has improved. No bowel, Gi, or urinary issues. Has seen Urologist at [facility] Dr. Cee. Taking Avodart 0.5 mg daily and Uroxatral 10 mg daily. Uses Viagra prn ED. CVA/Lipid: Tries to watch diet and exercise with walking at the [employer]. His friend will take him or their daughter will come over and take him. He admits that if he has a choice over napping or walking he will take the nap. He is taking Lipitor 80 mg daily. Denies any falls, uses a quad cane. Depression/DEMETRIO: Prozac increased last visit to 60 mg daily due to issues with mind racing, trouble winding down at night. Sx started after having CVA and have continued since. Admits he is depressed over being depressed. Most of his moods and depression are because he can't do what he used to. He has had some issues with night sweats but that was a problems before starting the Prozac. DM: Does not check BS at home, denies any hypoglycemic episodes or neuropathy sx. Taking Amaryl 2 mg daily, Trulicity 0.75 mg weekly, and Metformin 500 mg 2 pills once daily. HTN: No chest pains, dizziness, or SOB. Does not check BP. Taking Lisinopril 40 mg daily and Norvasc 5 mg daily. He follows with Cardio Dr. Mojica. He did have Echo done 11/25/22. Is going to be seeing Dr. Edgar Nguyen to evaluate the lump on the chest. It is not getting bigger, no pain on palpation. Follows with Dr. Bridger Lomax, Derm. 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 He is seeing Dr. Falcon, ENT every 6 months now. Past medical history, appointments, medications, allergies reviewed. 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 Anemia, unspecified 05/01/2009 Hct 34.9% in 04-18, 37.7% in 05-19 (WBC 4.9, PLT 276) Iron 23, Ferritin 968, NL B12 and folate in 04-18: ACD LDH 370 in 04-18 Arleen colored urine with a TBR in serum of 1.88 in 04-18 CT abd/pelvis 04-18: liver/kidney cysts, splenomegaly and 2 small (5 mm), non-calc nodules at L lung base-repeat 6 mo SPEP negative in 04-18 HBsAg neg, Hep A positive, JUAN MIGUEL negative, HIV western blot negative in 04-18 Broken toe Hyperplasia of prostate Lumbago 10/14/2005 Pure hypercholesterolemia Unspecified essential hypertension Previous Surgical History PAST SURGICAL HISTORY Procedure Laterality Date COLONOSCOPY FLX DX W/COLLJ SPEC WHEN PFRMD 04/09/2009 PAST SURGICAL HISTORY OF lipoma, neck PAST SURGICAL HISTORY OF 06/11/1980 lumbar laminotomy REMOVAL GALLBLADDER 03/24/2022 Family History FAMILY HISTORY Problem Relation Age of Onset other (Melanoma) Mother Diabetes Father lung cancer/chf/starvation Diabetes Sister Diabetes Paternal Grandfather Patient Allergies ALLERGIES Allergen Reactions Lachydrin [Other] Rash Penicillins Current Medications Current Outpatient Medications on File Prior to Visit Medication Sig atorvastatin (LIPITOR) 80 mg tablet Take 1 tablet by mouth once daily. amLODIPine (NORVASC) 5 mg tablet take 1 tablet by mouth once daily doxycycline (VIBRA-TABS) 100 mg tablet Take 1 tablet by mouth twice daily. FLUoxetine (PROZAC) 20 mg capsule Take 1 capsule by mouth once daily. Take along with [address] (PROTONIX) 40 mg tablet Take 1 tablet by mouth daily before breakfast. Take on empty stomach, 1/2 hr before meal. FLUoxetine (PROZAC) 40 mg capsule Take 1 capsule by mouth once daily. dulaglutide (TRULICITY) 0.75 mg/0.5 mL pen injector Inject 0.75 mg subcutaneously one time a week. Inject dose once per week. Discard Pen After dulaglutide (TRULICITY) 1.5 mg/0.5 mL pen injector Inject 1.5 mg subcutaneously one time a week. Inject once per week. Discard Pen After glimepiride (AMARYL) 2 mg tablet take 1 tablet by mouth once daily with breakfast lisinopril (ZESTRIL, PRINIVIL) 40 mg tablet Take 1 tablet by mouth once daily. metFORMIN ER (GLUCOPHAGE XR) 500 mg 24 hr tablet Take 2 tablets by mouth with breakfast alfuzosin SR (UROXATRAL) 10 mg 24 hr tablet Take 1 tablet by mouth once daily. betamethasone dipropionate, augmented (DIPROLENE) 0.05 % cream Dr. Bridger Lomax. Apply as needed for eczema. apixaban (ELIQUIS) 5 mg tab(s) Take 1 tablet by mouth twice daily. multivitamin tablet Take 1 tablet by mouth once daily. diphenhydrAMINE (BENADRYL) 25 mg capsule Take 1 capsule by mouth every 6 hours as needed. dutasteride (AVODART) 0.5 mg capsule Take 1 capsule by mouth once daily. No current facility-administered medications on file prior to visit. Social History Social History Tobacco Use Smoking status: Former Packs/day: 2.00 Years: 10.00 Pack years: 20.00 Types: Cigarettes Quit date: 10/11/1969 Years since quittin.2 Smokeless tobacco: Never Vaping Use Vaping Use: Never used Substance Use Topics Alcohol use: Yes Comment: ocass EXAM: BP 120/78 Pulse 74 Resp 16 Wt 78.2 kg (172 lb 8 oz) BMI 26.23 kg/m General Appearance: Well appearing, alert, in no acute distress, well-hydrated, well nourished.. Chest: lump on the mid chest, no pain on palpation Lungs: Lungs clear to auscultation. No wheezing, rhonchi, rales.. Heart: RRR without murmur, gallop, or rubs. No ectopy. Health Maintenance List DIABETIC FOOT EXAM Never done ADVANCE DIRECTIVE DISCUSSION Never done HBA1C due on 02/11/2023 URINE ALBUMIN:CREATININE RATIO due on 02/20/2023 DILATED RETINAL EXAM due on 07/06/2023 LDL CHOLESTEROL due on 08/14/2023 DTAP,TDAP,TD(5 - Td or Tdap) due on 01/15/2031 INFLUENZA Completed SHINGRIX VACCINE Completed COVID-19 VACCINE Completed PNEUMOCOCCAL: 65+ Completed Data reviewed Appointment on 12/04/2022 Component Date Value Cholesterol, Total 12/04/2022 112 Triglyceride 12/04/2022 107 HDL Cholesterol 12/04/2022 40 Non HDL Cholesterol 12/04/2022 72 Fasting Time 12/04/2022 15 VLDL Cholesterol 12/04/2022 21 TC:HDL Ratio 12/04/2022 2.80 LDL Cholesterol 12/04/2022 51 LDL:HDL Ratio 12/04/2022 1.28 Protein, Total 12/04/2022 7.3 Albumin 12/04/2022 4.3 Calcium, Total 12/04/2022 9.7 Bilirubin, Total 12/04/2022 0.8 Alkaline Phosphatase 12/04/2022 80 AST 12/04/2022 25 ALT 12/04/2022 39 Glucose 12/04/2022 154 (A) BUN 12/04/2022 13 Creatinine 12/04/2022 0.87 Sodium 12/04/2022 138 Potassium 12/04/2022 4.4 Chloride 12/04/2022 103 CO2 12/04/2022 25 Anion Gap 12/04/2022 10 Estimated Glomerular Preston* 12/04/2022 84 Hemoglobin A1C 12/04/2022 6.5 (A) Estimated Average Glucose 12/04/2022 140 ASSESSMENT/PLAN: 1. Type 2 diabetes mellitus without complication, without long-term current use of insulin (HCC) - ICD9: 250.00, ICD10: E11.9 (primary diagnosis) - Controlled - Continue current medications - GLIMEPIRIDE 2 MG TABLET 2. Essential hypertension, benign - ICD9: 401.1, ICD10: I10 - good control - Continue current medication(s) - Recommended regular aerobic exercise. - Recommend home blood pressure monitoring, to bring results in on next visit - Goal of BP <130/80 - LISINOPRIL 40 MG TABLET 3. Pure hypercholesterolemia - ICD9: 272.0, ICD10: E78.00 Controlled Continue current medications. 4. History of CVA (cerebrovascular accident) - ICD9: V12.54, ICD10: Z86.73 Continue current medications. Continue with Quad cane for support 5. 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) - ICD9: 296.22, ICD10: F32.1 Stable Continue current medications. Follow up in 6 months with fasting labs and urine test prior. I agree with the Chief Complaint, ROS, and Past Histories independently gathered by the clinical phlebotomy support tech and the remaining scribed note accurately describes my personal service to the patient. Medical Decision Making: Problems: Moderate: 2+ stable chronic illnesses Data: Unique test result(s) reviewed: 3+ Unique test(s) ordered: 3+ Risk: Moderate: Drug management Medical Decision Making Level: 4 - Moderate Emilia Reeves MD The documentation for this note was completed by Carolyn Romero Ma acting as scribe for Emilia Reeves MD. December 10, 2022 2:08 PM. Carolyn Romero Ma documented in this encounter [facility] 11-09-2022 Note HNO ID: [id number] Author: Emilia Reeves MD Service: ? Author Type: Physician Type: Progress Notes Filed: 11/09/2022 8:23 PM Note Text: Chief Complaint Patient presents with: Cough HPI Edilberto Mcdermott is a 87 year old male who presents here today for Cough. Here today with his for an acute visit. seen her Doctor this morning due to being ill. Was sent for x-ray, but have not heard back on those results. Pt c/o cough, chest congestion, sinus congestion and headache that started a couple weeks ago before they left for [place] to see family. Thought he caught this from his neighbor at [facility]. Pt has nasal drainage that ranges from Clear-yellow to green phlegm from his nose. He does cough up clear colored sputum. Does get sob with activity, has to take breaks. No fever, but he feels warm inside. Pt has taken OTC Mucinex, Sosa[place], Robitussin and Tylenol with no real improvement. Past medical history, appointments, medications, allergies reviewed. 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 Anemia, unspecified 05/01/2009 Hct 34.9% in 04-18, 37.7% in 05-19 (WBC 4.9, PLT 276) Iron 23, Ferritin 968, NL B12 and folate in 04-18: ACD LDH 370 in 04-18 Arleen colored urine with a TBR in serum of 1.88 in 04-18 CT abd/pelvis 04-18: liver/kidney cysts, splenomegaly and 2 small (5 mm), non-calc nodules at L lung base-repeat 6 mo SPEP negative in 04-18 HBsAg neg, Hep A positive, JUAN MIGUEL negative, HIV western blot negative in 04-18 Broken toe Hyperplasia of prostate Lumbago 10/14/2005 Pure hypercholesterolemia Unspecified essential hypertension Previous Surgical History PAST SURGICAL HISTORY Procedure Laterality Date COLONOSCOPY FLX DX W/COLLJ SPEC WHEN PFRMD 04/09/2009 PAST SURGICAL HISTORY OF lipoma, neck PAST SURGICAL HISTORY OF 06/11/1980 lumbar laminotomy REMOVAL GALLBLADDER 03/24/2022 Family History FAMILY HISTORY Problem Relation Age of Onset other (Melanoma) Mother Diabetes Father lung cancer/chf/starvation Diabetes Sister Diabetes Paternal Grandfather Patient Allergies ALLERGIES Allergen Reactions Lachydrin [Other] Rash Penicillins Current Medications Current Outpatient Medications on File Prior to Visit Medication Sig FLUoxetine (PROZAC) 20 mg capsule Take 1 capsule by mouth once daily. Take along with [address] (PROTONIX) 40 mg tablet Take 1 tablet by mouth daily before breakfast. Take on empty stomach, 1/2 hr before meal. FLUoxetine (PROZAC) 40 mg capsule Take 1 capsule by mouth once daily. dulaglutide (TRULICITY) 0.75 mg/0.5 mL pen injector Inject 0.75 mg subcutaneously one time a week. Inject dose once per week. Discard Pen After dulaglutide (TRULICITY) 1.5 mg/0.5 mL pen injector Inject 1.5 mg subcutaneously one time a week. Inject once per week. Discard Pen After glimepiride (AMARYL) 2 mg tablet take 1 tablet by mouth once daily with breakfast atorvastatin (LIPITOR) 80 mg tablet take 1 tablet by mouth once daily lisinopril (ZESTRIL, PRINIVIL) 40 mg tablet Take 1 tablet by mouth once daily. metFORMIN ER (GLUCOPHAGE XR) 500 mg 24 hr tablet Take 2 tablets by mouth with breakfast alfuzosin SR (UROXATRAL) 10 mg 24 hr tablet Take 1 tablet by mouth once daily. amLODIPine (NORVASC) 5 mg tablet Take 1 tablet by mouth once daily. betamethasone dipropionate, augmented (DIPROLENE) 0.05 % cream Dr. Bridger Lomax. Apply as needed for eczema. apixaban (ELIQUIS) 5 mg tab(s) Take 1 tablet by mouth twice daily. multivitamin tablet Take 1 tablet by mouth once daily. diphenhydrAMINE (BENADRYL) 25 mg capsule Take 1 capsule by mouth every 6 hours as needed. dutasteride (AVODART) 0.5 mg capsule Take 1 capsule by mouth once daily. No current facility-administered medications on file prior to visit. Social History Social History Tobacco Use Smoking status: Former Packs/day: 2.00 Years: 10.00 Pack years: 20.00 Types: Cigarettes Quit date: 10/11/1969 Years since quittin.1 Smokeless tobacco: Never Vaping Use Vaping Use: Never used Substance Use Topics Alcohol use: Yes Comment: ocass EXAM: BP 118/64 (BP Site: Left Arm, BP Position: Sitting, BP Cuff Size: Regular Adult) Pulse 102 Temp 36.7 ?C (98.1 ?F) (Tympanic) Resp 18 Wt 77.6 kg (171 lb) SpO2 94% BMI 26.00 kg/m? General Appearance: Well appearing, alert, in no acute distress, well-hydrated, well nourished and using a cane. Lungs: Lungs clear to auscultation. No wheezing, rhonchi, rales.. Heart: RRR without murmur, gallop, or rubs. No ectopy. Health Maintenance List DIABETIC FOOT EXAM Never done ADVANCE DIRECTIVE DISCUSSION Never done HBA1C due on 02/11/2023 URINE ALBUMIN:CREATININE RATIO due on 02/20/2023 DILATED RETINAL EXAM due on 07/06/2023 LDL CHOLESTEROL due on 08/14/2023 DTAP,TDAP,TD (more content not included)... [facility] 11-09-2022 History of Present illness Narrative Chief Complaint Patient presents with: Cough HPI Edilberto Mcdermott is a 87 year old male who presents here today for Cough. Here today with his for an acute visit. seen her Doctor this morning due to being ill. Was sent for x-ray, but have not heard back on those results. Pt c/o cough, chest congestion, sinus congestion and headache that started a couple weeks ago before they left for [place] to see family. Thought he caught this from his neighbor at [facility]. Pt has nasal drainage that ranges from Clear-yellow to green phlegm from his nose. He does cough up clear colored sputum. Does get sob with activity, has to take breaks. No fever, but he feels warm inside. Pt has taken OTC Mucinex, [place], Robitussin and Tylenol with no real improvement. Past medical history, appointments, medications, allergies reviewed. 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 Anemia, unspecified 05/01/2009 Hct 34.9% in 04-18, 37.7% in 05-19 (WBC 4.9, PLT 276) Iron 23, Ferritin 968, NL B12 and folate in 04-18: ACD LDH 370 in 04-18 Arleen colored urine with a TBR in serum of 1.88 in 04-18 CT abd/pelvis 04-18: liver/kidney cysts, splenomegaly and 2 small (5 mm), non-calc nodules at L lung base-repeat 6 mo SPEP negative in 04-18 HBsAg neg, Hep A positive, JUAN MIGUEL negative, HIV western blot negative in 04-18 Broken toe Hyperplasia of prostate Lumbago 10/14/2005 Pure hypercholesterolemia Unspecified essential hypertension Previous Surgical History PAST SURGICAL HISTORY Procedure Laterality Date COLONOSCOPY FLX DX W/COLLJ SPEC WHEN PFRMD 04/09/2009 PAST SURGICAL HISTORY OF lipoma, neck PAST SURGICAL HISTORY OF 06/11/1980 lumbar laminotomy REMOVAL GALLBLADDER 03/24/2022 Family History FAMILY HISTORY Problem Relation Age of Onset other (Melanoma) Mother Diabetes Father lung cancer/chf/starvation Diabetes Sister Diabetes Paternal Grandfather Patient Allergies ALLERGIES Allergen Reactions Lachydrin [Other] Rash Penicillins Current Medications Current Outpatient Medications on File Prior to Visit Medication Sig FLUoxetine (PROZAC) 20 mg capsule Take 1 capsule by mouth once daily. Take along with [address] (PROTONIX) 40 mg tablet Take 1 tablet by mouth daily before breakfast. Take on empty stomach, 1/2 hr before meal. FLUoxetine (PROZAC) 40 mg capsule Take 1 capsule by mouth once daily. dulaglutide (TRULICITY) 0.75 mg/0.5 mL pen injector Inject 0.75 mg subcutaneously one time a week. Inject dose once per week. Discard Pen After dulaglutide (TRULICITY) 1.5 mg/0.5 mL pen injector Inject 1.5 mg subcutaneously one time a week. Inject once per week. Discard Pen After glimepiride (AMARYL) 2 mg tablet take 1 tablet by mouth once daily with breakfast atorvastatin (LIPITOR) 80 mg tablet take 1 tablet by mouth once daily lisinopril (ZESTRIL, PRINIVIL) 40 mg tablet Take 1 tablet by mouth once daily. metFORMIN ER (GLUCOPHAGE XR) 500 mg 24 hr tablet Take 2 tablets by mouth with breakfast alfuzosin SR (UROXATRAL) 10 mg 24 hr tablet Take 1 tablet by mouth once daily. amLODIPine (NORVASC) 5 mg tablet Take 1 tablet by mouth once daily. betamethasone dipropionate, augmented (DIPROLENE) 0.05 % cream Dr. Bridger Lomax. Apply as needed for eczema. apixaban (ELIQUIS) 5 mg tab(s) Take 1 tablet by mouth twice daily. multivitamin tablet Take 1 tablet by mouth once daily. diphenhydrAMINE (BENADRYL) 25 mg capsule Take 1 capsule by mouth every 6 hours as needed. dutasteride (AVODART) 0.5 mg capsule Take 1 capsule by mouth once daily. No current facility-administered medications on file prior to visit. Social History Social History Tobacco Use Smoking status: Former Packs/day: 2.00 Years: 10.00 Pack years: 20.00 Types: Cigarettes Quit date: 10/11/1969 Years since quittin.1 Smokeless tobacco: Never Vaping Use Vaping Use: Never used Substance Use Topics Alcohol use: Yes Comment: ocass EXAM: BP 118/64 (BP Site: Left Arm, BP Position: Sitting, BP Cuff Size: Regular Adult) Pulse 102 Temp 36.7 C (98.1 F) (Tympanic) Resp 18 Wt 77.6 kg (171 lb) SpO2 94% BMI 26.00 kg/m General Appearance: Well appearing, alert, in no acute distress, well-hydrated, well nourished and using a cane. Lungs: Lungs clear to auscultation. No wheezing, rhonchi, rales.. Heart: RRR without murmur, gallop, or rubs. No ectopy. Health Maintenance List DIABETIC FOOT EXAM Never done ADVANCE DIRECTIVE DISCUSSION Never done HBA1C due on 02/11/2023 URINE ALBUMIN:CREATININE RATIO due on 02/20/2023 DILATED RETINAL EXAM due on 07/06/2023 LDL CHOLESTEROL due on 08/14/2023 DTAP,TDAP,TD(5 - Td or Tdap) due on 01/15/2031 INFLUENZA Completed SHINGRIX VACCINE Completed COVID-19 VACCINE Completed PNEUMOCOCCAL: 65+ Completed Data reviewed None ASSESSMENT/PLAN: 1. Cough, unspecified type - ICD9: 786.2, ICD10: R05.9 (primary diagnosis) - Do not feel an x-ray is needed as lungs are clear - Start Doxycycline bid - DOXYCYCLINE HYCLATE 100 MG TABLET 2. Chest congestion - ICD9: 786.9, ICD10: R09.89 - As noted above - DOXYCYCLINE HYCLATE 100 MG TABLET 3. Sinus congestion - ICD9: 478.19, ICD10: R09.81 - As noted above. - DOXYCYCLINE HYCLATE 100 MG TABLET Start treatment, update office if not improved. I agree with the Chief Complaint, ROS, and Past Histories independently gathered by the clinical phlebotomy support tech and the remaining scribed note accurately describes my personal service to the patient. Medical Decision Making: Problems: Low: Acute, uncomplicated illness or injury Risk: Moderate: Drug management Medical Decision Making Level: 3 - Low Emilia Reeves MD The documentation for this note was completed by Serina Garcia Ma acting as scribe for Emilia Reeves MD. November 09, 2022 3:41 PM. Serina Garcia Ma documented in this encounter [facility] 11-09-2022 Miscellaneous Notes OK to refill as ordered Emilia Reeves MD documented in this encounter [facility] 06-02-2022 History of Present illness Narrative Chief Complaint Patient presents with: F/U 3 Month HPI Edilberto Mcdermott is a 86 year old male who presents here today for a 3 month follow up. Here today with his for 3 month follow up. Pt recently seen in the office on 04/27/22 due to fatigue. Also seen on 04/09/22. Uro - Follows with Dr. Cee. Currently taking Uroxatral 10 mg daily and Avodart 0.5 mg daily. Uses Viagra prn. GI - Gallbladder surgery on 03/24/22. Pt at OV in March c/o of nausea. Was started on Protonix 40 mg once daily, but this is now completed. Pt notes that acid is really bad this morning, noting this occasionally occurs more often then not. Covid - Test + for Covid in April. Main complaint was fatigue. See in office on 04/27/22. Noted that he's been tired since having his CVA. Labs ordered, but were normal. At this time pt unsure how he's doing . feels that he's recovered and doing well at this time. Continues to still have no energy at present time. HTN - Denies checking BP at home or having symptoms of chest pain, sob or dizziness. Pt does see Dr. Mojica. Currently taking Lisinopril 40 mg daily and Norvasc 5 mg daily. DM - Denies checking sugars at or having symptoms of low blood sugars or neuropathy symptoms. Has routine eye exams at [facility]. On current regimen of Metformin 500 mg 2 tabs po once daily and Amaryl 2 mg daily. Daughter discussed with patient/Mother about using Trulicity vs Metformin to see if this helps control sugars better and reduce GI upset. CVA/Lipid - Trying to watch diet, was walking for exercise, but not as much as he did previously. Uses a walker. Does have an exercise room at [facility], but its not like the [employer]. On current regimen of Lipitor 80 mg daily and Eliquis 5 mg bid. Depression/DEMETRIO - Ongoing from his stroke. On current regimen of Prozac 20 mg once daily. called into the office with reports of getting more depressed due to getting confused and upset when corrected. She did not want to discuss this in front of him due to becoming upset. Wondering if medication could be increased. Reports he continues to have ongoing issues with really bad night sweats. Does state this morning is the first time he's woke up dry in a week. - Has Adv Dir/Living Will on file. Past medical history, appointments, medications, allergies reviewed. 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 Anemia, unspecified 05/01/2009 Hct 34.9% in 04-18, 37.7% in 05-19 (WBC 4.9, PLT 276) Iron 23, Ferritin 968, NL B12 and folate in 04-18: ACD LDH 370 in 04-18 Arleen colored urine with a TBR in serum of 1.88 in 04-18 CT abd/pelvis 04-18: liver/kidney cysts, splenomegaly and 2 small (5 mm), non-calc nodules at L lung base-repeat 6 mo SPEP negative in 04-18 HBsAg neg, Hep A positive, JUAN MIGUEL negative, HIV western blot negative in 04-18 Broken toe Hyperplasia of prostate Lumbago 10/14/2005 Pure hypercholesterolemia Unspecified essential hypertension Previous Surgical History PAST SURGICAL HISTORY Procedure Laterality Date COLONOSCOPY FLX DX W/COLLJ SPEC WHEN PFRMD 04/09/2009 PAST SURGICAL HISTORY OF lipoma, neck PAST SURGICAL HISTORY OF 06/11/1980 lumbar laminotomy REMOVAL GALLBLADDER 03/24/2022 Family History FAMILY HISTORY Problem Relation Age of Onset other (Melanoma) Mother Diabetes Father lung cancer/chf/starvation Diabetes Sister Diabetes Paternal Grandfather Patient Allergies ALLERGIES Allergen Reactions Lachydrin [Other] Rash Penicillins Current Medications Current Outpatient Medications on File Prior to Visit Medication Sig FLUoxetine (PROZAC) 20 mg capsule Take 1 capsule by mouth once daily. HYDROcodone-acetaminophen (NORCO) 5-325 mg per tablet take 1 tablet by mouth every 8 hours for [address] (PROTONIX) 40 mg tablet Take 1 tablet by mouth daily before breakfast. Take on empty stomach, 1/2 hr before meal. glimepiride (AMARYL) 2 mg tablet take 1 tablet by mouth once daily with breakfast atorvastatin (LIPITOR) 80 mg tablet take 1 tablet by mouth once daily lisinopril (ZESTRIL, PRINIVIL) 40 mg tablet Take 1 tablet by mouth once daily. metFORMIN ER (GLUCOPHAGE XR) 500 mg 24 hr tablet Take 2 tablets by mouth with breakfast alfuzosin SR (UROXATRAL) 10 mg 24 hr tablet Take 1 tablet by mouth once daily. amLODIPine (NORVASC) 5 mg tablet Take 1 tablet by mouth once daily. betamethasone dipropionate, augmented (DIPROLENE) 0.05 % cream Dr. Bridger Lomax. Apply as needed for eczema. apixaban (ELIQUIS) 5 mg tab(s) Take 1 tablet by mouth twice daily. multivitamin tablet Take 1 tablet by mouth once daily. diphenhydrAMINE (BENADRYL) 25 mg capsule Take 1 capsule by mouth every 6 hours as needed. dutasteride (AVODART) 0.5 mg capsule Take 1 capsule by mouth once daily. No current facility-administered medications on file prior to visit. Social History Social History Tobacco Use Smoking status: Former Packs/day: 2.00 Years: 10.00 Pack years: 20.00 Types: Cigarettes Quit date: 10/11/1969 Years since quittin.6 Smokeless tobacco: Never Vaping Use Vaping Use: Never used Substance Use Topics Alcohol use: Yes Comment: ocass EXAM: BP 118/72 (BP Site: Left Arm, BP Position: Sitting, BP Cuff Size: Regular Adult) Pulse 88 Resp 16 Wt 80 kg (176 lb 6.4 oz) BMI 26.82 kg/m General Appearance: Well appearing, alert, in no acute distress, well-hydrated, well nourished.. Lungs: Lungs clear to auscultation. No wheezing, rhonchi, rales.. Heart: RRR without murmur, gallop, or rubs. No ectopy. Health Maintenance List DILATED RETINAL EXAM Never done DIABETIC FOOT EXAM Never done ADVANCE DIRECTIVE DISCUSSION Never done INFLUENZA(1) due on 06/11/2022 HBA1C due on 07/28/2022 URINE ALBUMIN:CREATININE RATIO due on 02/20/2023 LDL CHOLESTEROL due on 02/20/2023 DTAP,TDAP,TD(5 - Td or Tdap) due on 01/15/2031 SHINGRIX VACCINE Completed COVID-19 VACCINE Completed PNEUMOCOCCAL: 65+ Completed Data reviewed Appointment on 04/27/2022 Component Date Value Protein, Total 04/27/2022 7.4 Albumin 04/27/2022 4.2 Calcium, Total 04/27/2022 9.7 Bilirubin, Total 04/27/2022 0.7 Alkaline Phosphatase 04/27/2022 77 AST 04/27/2022 17 ALT 04/27/2022 24 Glucose 04/27/2022 131 (A) BUN 04/27/2022 12 Creatinine 04/27/2022 0.79 Sodium 04/27/2022 137 Potassium 04/27/2022 4.5 Chloride 04/27/2022 99 CO2 04/27/2022 26 Anion Gap 04/27/2022 12 Estimated Glomerular Preston* 04/27/2022 87 WBC 04/27/2022 9.36 RBC 04/27/2022 4.72 Hemoglobin 04/27/2022 13.4 Hematocrit 04/27/2022 43.1 MCV 04/27/2022 91.3 MCH 04/27/2022 28.4 MCHC 04/27/2022 31.1 RDW-CV 04/27/2022 13.9 Platelet Count 04/27/2022 250 MPV 04/27/2022 11.4 Absolute nRBC 04/27/2022 <0.01 Hemoglobin A1C 04/27/2022 8.6 (A) Estimated Average Glucose 04/27/2022 200 ASSESSMENT/PLAN: 1. Type 2 diabetes mellitus without complication, without long-term current use of insulin (HCC) - ICD9: 250.00, ICD10: E11.9 (primary diagnosis) uncontrolled - Discontinue metformin (Glucophage) - Start Trulicity 0.75 mg for 4 weeks with increase to 1.5 mg once weekly. - Recheck labs in 3 months 2. Essential hypertension, benign - ICD9: 401.1, ICD10: I10 - good control - Continue current medication(s) - Recommended regular aerobic exercise. - Recommend home blood pressure monitoring, to bring results in on next visit - Goal of BP <130/80 3. Hyperlipidemia, unspecified hyperlipidemia type - ICD9: 272.4, ICD10: E78.5 - suboptimal control - Continue current medication. - Encouraged following a low fat, low cholesterol diet. - Discussed the benefits of regular aerobic exercise and weight loss. 4. 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) - ICD9: 296.22, ICD10: F32.1 - Increase Prozac to 40 mg daily 5. Cerebrovascular accident (CVA), unspecified mechanism (HCC) - ICD9: 434.91, ICD10: I63.9 - Continue current medication regimen. - Recommend exercise, continue walking 6. Atrial fibrillation, unspecified type (HCC) - ICD9: 427.31, ICD10: I48.91 - Continue current medication regimen. - Cont f/u with Cardiology 7. ED (erectile dysfunction) of organic origin - ICD9: 607.84, ICD10: N52.9 - Stable - Continue current medication regimen. 8. Fatigue, unspecified type - ICD9: 780.79, ICD10: R53.83 - Related to CVA. - Increase Prozac to 40 mg daily. 9. GERD without esophagitis - ICD9: 530.81, ICD10: K21.9 - Restart Protonix 40 mg once daily - PANTOPRAZOLE 40 MG TABLET,DELAYED RELEASE 2-3 month follow up with labs. I agree with the Chief Complaint, ROS, and Past Histories independently gathered by the clinical phlebotomy support tech and the remaining scribed note accurately describes my personal service to the patient. Medical Decision Making: Problems: Moderate: 2+ stable chronic illnesses and 1+ chronic illnesses with change Data: Unique test(s) ordered: 3+ Risk: Moderate: Drug management Medical Decision Making Level: 4 - Moderate Emilia Reeves MD The documentation for this note was completed by Serina Garcia Ma acting as scribe for Emilia Reeves MD. June 02, 2022 9:27 AM. Seirna Garcia Ma documented in this encounter [facility] 04-28-2022 Miscellaneous Notes Pt notified. Please notify patient that his blood work looks good; his blood count is normal. His fatigue is most likely due to having had Covid, and should improve with time Emilia Reeves MD documented in this encounter [facility] 04-27-2022 Miscellaneous Notes Noted Emilia Reeves MD Pts called in reports they had been on a trip to [place]. Pt had tested positive for Covid a week ago tomorrow. She reports the only symptom he has had is fatigue. She states he has been tired and had no energy since his stroke a year and a half ago, but now he hardly wakes up. She reports he feels and looks better, but she wakes him up to eat and he may stay up for a little bit, but then he'll sit in the chair and fall asleep, and recently he's just been going back to be. Pt scheduled with provider today at 300 pm. documented in this encounter [facility] 04-09-2022 History of Present illness Narrative Chief Complaint No chief complaint on file. HPI Edilberto Mcdermott is a 86 year old male who presents here today for follow up. Pt following up from his gallbladder surgery he had done 03/24/22. He had been having some nausea for a few weeks prior to that.. Doing well now. In for a check up because they are planning a river cruise in [place] starting next week. Diet back to normal. No GI symptoms, no pain. Past medical history, appointments, medications, allergies reviewed. 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 Anemia, unspecified 05/01/2009 Hct 34.9% in 04-18, 37.7% in 05-19 (WBC 4.9, PLT 276) Iron 23, Ferritin 968, NL B12 and folate in 04-18: ACD LDH 370 in 04-18 Arleen colored urine with a TBR in serum of 1.88 in 04-18 CT abd/pelvis 04-18: liver/kidney cysts, splenomegaly and 2 small (5 mm), non-calc nodules at L lung base-repeat 6 mo SPEP negative in 04-18 HBsAg neg, Hep A positive, JUAN MIGUEL negative, HIV western blot negative in 04-18 Broken toe Hyperplasia of prostate Lumbago 10/14/2005 Pure hypercholesterolemia Unspecified essential hypertension Previous Surgical History PAST SURGICAL HISTORY Procedure Laterality Date COLONOSCOPY FLX DX W/COLLJ SPEC WHEN PFRMD 04/09/09 PAST SURGICAL HISTORY OF lipoma, neck PAST SURGICAL HISTORY OF lumbar laminotomy Family History FAMILY HISTORY Problem Relation Age of Onset Diabetes Father lung cancer/chf/starvation Diabetes Sister Diabetes Paternal Grandfather other (Melanoma [Other]) Mother Patient Allergies ALLERGIES Allergen Reactions Lachydrin [Other] Rash Penicillins Current Medications Current Outpatient Medications on File Prior to Visit Medication Sig pantoprazole DR (PROTONIX) 40 mg tablet Take 1 tablet by mouth daily before breakfast. Take on empty stomach, 1/2 hr before meal. FLUoxetine (PROZAC) 20 mg capsule Take 1 capsule by mouth once daily. glimepiride (AMARYL) 2 mg tablet take 1 tablet by mouth once daily with breakfast atorvastatin (LIPITOR) 80 mg tablet take 1 tablet by mouth once daily lisinopril (ZESTRIL, PRINIVIL) 40 mg tablet Take 1 tablet by mouth once daily. metFORMIN ER (GLUCOPHAGE XR) 500 mg 24 hr tablet Take 2 tablets by mouth with breakfast alfuzosin SR (UROXATRAL) 10 mg 24 hr tablet Take 1 tablet by mouth once daily. amLODIPine (NORVASC) 5 mg tablet Take 1 tablet by mouth once daily. betamethasone dipropionate, augmented (DIPROLENE) 0.05 % cream Dr. Bridger Lomax. Apply as needed for eczema. apixaban (ELIQUIS) 5 mg tab(s) Take 1 tablet by mouth twice daily. multivitamin tablet Take 1 tablet by mouth once daily. diphenhydrAMINE (BENADRYL) 25 mg capsule Take 1 capsule by mouth every 6 hours as needed. dutasteride (AVODART) 0.5 mg capsule Take 1 capsule by mouth once daily. No current facility-administered medications on file prior to visit. Social History Social History Tobacco Use Smoking status: Former Smoker Packs/day: 2.00 Years: 10.00 Pack years: 20.00 Types: Cigarettes Quit date: 10/11/1969 Years since quittin.4 Smokeless tobacco: Never Used Vaping Use Vaping Use: Never used Substance Use Topics Alcohol use: Yes Comment: ocass Drug use: Not on file EXAM: There were no vitals taken for this visit. General Appearance: Well appearing, alert, in no acute distress, well-hydrated, well nourished.. Lungs: Lungs clear to auscultation. No wheezing, rhonchi, rales.. Heart: RRR without murmur, gallop, or rubs. No ectopy. Abdomen: Normal abdominal exam, Abdomen soft, non-tender. Bowel sounds normal. No masses, organomegaly. Health Maintenance List DILATED RETINAL EXAM Never done DIABETIC FOOT EXAM Never done ADVANCE DIRECTIVE DISCUSSION Never done HBA1C due on 05/23/2022 URINE ALBUMIN:CREATININE RATIO due on 02/20/2023 LDL CHOLESTEROL due on 02/20/2023 DTAP,TDAP,TD(5 - Td or Tdap) due on 01/15/2031 INFLUENZA Completed SHINGRIX VACCINE Completed COVID-19 VACCINE Completed PNEUMOCOCCAL: 65+ Completed Data reviewed Hosp records ASSESSMENT/PLAN: 1. Essential hypertension, benign - ICD9: 401.1, ICD10: I10 (primary diagnosis) - good control - Continue current medication(s) - Recommend home blood pressure monitoring, to bring results in on next visit - Goal of BP <140/90 2. Type 2 diabetes mellitus without complication, without long-term current use of insulin (HCC) - ICD9: 250.00, ICD10: E11.9 3. 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) - ICD9: 296.22, ICD10: F32.1 4. Depression, unspecified depression type - ICD9: 311, ICD10: F32.A - FLUOXETINE 20 MG CAPSULE; he is taking this once daily I see no medical contraindication to their planned travel pans Follow up prn I spent a total of 25 minutes on the date of the service which included preparing to see the patient, [id number] patient care, completing clinical documentation, obtaining and/or reviewing separately obtained history, performing a medically appropriate examination and counseling and educating the patient/family/caregiver. Emilia Reeves MD documented in this encounter [facility] 04-03-2022 History of Present illness Narrative FOLLOW UP VISIT NAME: Edilberto [facility] NO.: [id number] DATE OF SERVICE: 04/03/2022 : 1935 REFERRING PHYSICIAN: Emilia Reeves MD Edilberto is status post laparoscopic cholecystectomy done for acute cholecystitis presentation at [facility]. It was done on 03/24/2022. Pathology from [facility] - chronic cholecystitis and cholelithiasis) Patient denies abdominal pain. Feels more tired than usual. VITALS: Blood pressure 96/58, pulse 111, temperature 36.8 C (98.2 F), height 172.7 cm (5' 8 ), weight 78.5 kg (173 lb), SpO2 94 %. On examination, abdomen is soft and benign. Mild rectus diastasis. Wounds are well healed and without evidence of infection. Assessment IMPRESSION: s/p laparoscopic cholecystectomy PLAN: Patient to return to clinic if any worsening signs/symptoms. Patient to return to his PCP for medical care. Patient acknowledges above. Diagnoses: (Z90.49) Status post laparoscopic cholecystectomy (primary encounter diagnosis) I have confirmed and edited as necessary, the PFSH and ROS obtained by others. Isabell Capone MD documented in this encounter [facility] 02-26-2022 Nurse Note Falls Risk Intake: 1. Patient age 65 or over, unsteady, or was advised to use special equipment to aid ambulation (i.e., cane or walker)? Yes 2. Has the patient had two falls in the past year, or one with injury? No 3. Does the patient need to use their hands when pushing up from chair, or hold onto furniture when ambulating at home? No 4. Is the patient worried about falling? Yes Please inform patient that answering Yes to one or more of the questions above can increase their risk of falling Patient is at greater risk for falls. Falls Instruction: Teaching document below - reviewed and given to patient [facility] - Preventing Falls and Maintaining Balance documented in this encounter [facility] 02-26-2022 History of Present illness Narrative Chief Complaint Patient presents with: F/U 3 Month HPI Edilberto Mcdermott is a 86 year old male who presents here today for 3 month follow up. Here with . Both living in [facility]. Going to be going on a river cruise to [place], taking their kids and grand kids, in April. Has an advanced directive. Denies any bowel, Gi, or urinary issues. Is on both Uroxatral 10 mg daily and Avodart 0.[address] mg [address]. Cee, Urologist at [facility]. Uses Viagra as needed for ED but states he hasn't been using it. Nausea: was prescribed the Protonix 40 mg to take daily to help with stomach acid and upset but pt has been doing well and has not been giving him the Protonix. DM: Taking Metformin 500 mg 2 pills once daily and Amaryl 2 mg daily (added at last visit). Does not check BS at home. No hypoglycemic episodes, no neuropathy sx. Gets eye exams at [facility]. HTN: Denies checking BP at home, no chest pains, dizziness, or SOB. Follows with [facility] Super[facility], Dr. Mojica. Currently on Lisinopril 40 mg daily and Norvasc 5 mg daily. CVA & Lipid: Is taking Lipitor 80 mg daily and Eliquis 5 mg BID. No longer taking an aspirin a day. Uses a walker to ambulate. Tries to watch diet and walk for some for exercise. He would like to have an rx for transport chair to use while at the airport and while in [place] visiting. Unable to do a lot of walking. Memory: last visit was using OTC Prevagen but pt didn't feel that was working. He does not feel that the memory is any worse. Depression/DEMETRIO: Decreased Prozac from 40 mg to 20 mg last visit to see if this helped with his fatigue and ED issues. He has noticed some improvement on the 20 mg daily dosage. Eczema: Treated by Derm, Dr. Bridger Lomax. He still has issues with his scalp itching. He will discuss further with Dr. Lomax. Past medical history, appointments, medications, allergies reviewed. 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 Anemia, unspecified 05/01/2009 Hct 34.9% in 04-18, 37.7% in 05-19 (WBC 4.9, PLT 276) Iron 23, Ferritin 968, NL B12 and folate in 04-18: ACD LDH 370 in 04-18 Arleen colored urine with a TBR in serum of 1.88 in 04-18 CT abd/pelvis 04-18: liver/kidney cysts, splenomegaly and 2 small (5 mm), non-calc nodules at L lung base-repeat 6 mo SPEP negative in 04-18 HBsAg neg, Hep A positive, JUAN MIGUEL negative, HIV western blot negative in 04-18 Broken toe Hyperplasia of prostate Lumbago 10/14/2005 Pure hypercholesterolemia Unspecified essential hypertension Previous Surgical History PAST SURGICAL HISTORY Procedure Laterality Date COLONOSCOPY FLX DX W/COLLJ SPEC WHEN PFRMD 04/09/09 PAST SURGICAL HISTORY OF lipoma, neck PAST SURGICAL HISTORY OF lumbar laminotomy Family History FAMILY HISTORY Problem Relation Age of Onset Diabetes Father lung cancer/chf/starvation Diabetes Sister Diabetes Paternal Grandfather other (Melanoma [Other]) Mother Patient Allergies ALLERGIES Allergen Reactions Lachydrin [Other] Rash Penicillins Current Medications Current Outpatient Medications on File Prior to Visit Medication Sig pantoprazole DR (PROTONIX) 40 mg tablet Take 1 tablet by mouth daily before breakfast. Take on empty stomach, 1/2 hr before meal. FLUoxetine (PROZAC) 20 mg capsule Take 1 capsule by mouth once daily. glimepiride (AMARYL) 2 mg tablet take 1 tablet by mouth once daily with breakfast atorvastatin (LIPITOR) 80 mg tablet take 1 tablet by mouth once daily lisinopril (ZESTRIL, PRINIVIL) 40 mg tablet Take 1 tablet by mouth once daily. metFORMIN ER (GLUCOPHAGE XR) 500 mg 24 hr tablet Take 2 tablets by mouth with breakfast alfuzosin SR (UROXATRAL) 10 mg 24 hr tablet Take 1 tablet by mouth once daily. amLODIPine (NORVASC) 5 mg tablet Take 1 tablet by mouth once daily. betamethasone dipropionate, augmented (DIPROLENE) 0.05 % cream Dr. Bridger Lomax. Apply as needed for eczema. sildenafil (VIAGRA) 100 mg tablet Take one pill 30-60 minutes prior to sexual activity apixaban (ELIQUIS) 5 mg tab(s) Take 1 tablet by mouth twice daily. multivitamin tablet Take 1 tablet by mouth once daily. diphenhydrAMINE (BENADRYL) 25 mg capsule Take 1 capsule by mouth every 6 hours as needed. dutasteride (AVODART) 0.5 mg capsule Take 1 capsule by mouth once daily. No current facility-administered medications on file prior to visit. Social History Social History Tobacco Use Smoking status: Former Smoker Packs/day: 2.00 Years: 10.00 Pack years: 20.00 Types: Cigarettes Quit date: 10/11/1969 Years since quittin.4 Smokeless tobacco: Never Used Vaping Use Vaping Use: Never used Substance Use Topics Alcohol use: Yes Comment: ocass Drug use: Not on file EXAM: BP 124/72 Pulse 84 Resp 16 Wt 79.2 kg (174 lb 11.2 oz) SpO2 95% BMI 26.37 kg/m General Appearance: Well appearing, alert, in no acute distress, well-hydrated, well nourished. and Overweight. Lungs: Lungs clear to auscultation. No wheezing, rhonchi, rales.. Heart: RRR without murmur, gallop, or rubs. No ectopy. Health Maintenance List DILATED RETINAL EXAM Never done DIABETIC FOOT EXAM Never done URINE ALBUMIN:CREATININE RATIO due on 05/08/2020 ADVANCE DIRECTIVE DISCUSSION Never done COVID-19 VACCINE(4 - Booster for Moderna series) due on 12/13/2021 HBA1C due on 02/11/2022 LDL CHOLESTEROL due on 08/07/2022 DTAP,TDAP,TD(5 - Td or Tdap) due on 01/15/2031 INFLUENZA Completed PNEUMOVAX AGE 65 AND OVER WITH 5YR LOOKBACK Completed SHINGRIX VACCINE Completed MENINGOCOCCAL CONJUGATE Aged Out Data reviewed Appointment on 02/20/2022 Component Date Value Creatinine, Ur Random (U* 02/20/2022 193.6 Albumin, Urine Random 02/20/2022 <12.0 Albumin/Creat Ratio 02/20/2022 <6 Cholesterol, Total 02/20/2022 104 Triglyceride 02/20/2022 132 HDL Cholesterol 02/20/2022 35 (A) Non HDL Cholesterol 02/20/2022 69 Fasting Time 02/20/2022 15 VLDL Cholesterol 02/20/2022 26 TC:HDL Ratio 02/20/2022 2.97 LDL Cholesterol 02/20/2022 43 LDL:HDL Ratio 02/20/2022 1.23 Protein, Total 02/20/2022 7.3 Albumin 02/20/2022 4.4 Calcium, Total 02/20/2022 9.8 Bilirubin, Total 02/20/2022 0.8 Alkaline Phosphatase 02/20/2022 73 AST 02/20/2022 35 ALT 02/20/2022 46 Glucose 02/20/2022 184 (A) BUN 02/20/2022 13 Creatinine 02/20/2022 0.78 Sodium 02/20/2022 140 Potassium 02/20/2022 4.5 Chloride 02/20/2022 103 CO2 02/20/2022 27 Anion Gap 02/20/2022 10 Estimated Glomerular Preston* 02/20/2022 87 Hemoglobin A1C 02/20/2022 8.0 (A) Estimated Average Glucose 02/20/2022 183 ASSESSMENT/PLAN: 1. Cerebrovascular accident (CVA), unspecified mechanism (HCC) - ICD9: 434.91, ICD10: I63.9 (primary diagnosis) Continue current medications. - TRANSPORT CHAIR PT WT <250LB 2. Pure hypercholesterolemia - ICD9: 272.0, ICD10: E78.00 Stable Continue current medications. 3. Essential hypertension, benign - ICD9: 401.1, ICD10: I10 - good control - Continue current medication(s) - Recommended regular aerobic exercise. - Recommend home blood pressure monitoring, to bring results in on next visit - Goal of BP <130/80 4. Type 2 diabetes mellitus without complication, without long-term current use of insulin (HCC) - ICD9: 250.00, ICD10: E11.9 improved control - Continue current medications 5. 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) - ICD9: 296.22, ICD10: F32.1 Stable Continue current medications. Copy of recent lab results faxed to Dr. Mojica and Dr. Cee. Follow up in 3 months with fasting labs prior. The documentation for this note was completed by Carolyn Romero Ma acting as scribe for Emilia Reeves MD. February 26, 2022 9:05 AM. Carolyn Romero Ma documented in this encounter [facility] 01-23-2022 History of Present illness Narrative Chief Complaint Patient presents with: Nausea: X 1 week HPI Edilberto Mcdermott is a 86 year old male who presents here today for nausea. For the last few days has had bouts of feeling nauseated. No vomiting. No medication changes. Nausea is short lived, just a few minutes. May happen before eating. thinks he was better on daily prozac than every other day. Past medical history, appointments, medications, allergies reviewed. 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 Anemia, unspecified 05/01/2009 Hct 34.9% in 04-18, 37.7% in 05-19 (WBC 4.9, PLT 276) Iron 23, Ferritin 968, NL B12 and folate in 04-18: ACD LDH 370 in 04-18 Arleen colored urine with a TBR in serum of 1.88 in 04-18 CT abd/pelvis 04-18: liver/kidney cysts, splenomegaly and 2 small (5 mm), non-calc nodules at L lung base-repeat 6 mo SPEP negative in 04-18 HBsAg neg, Hep A positive, JUAN MIGUEL negative, HIV western blot negative in 04-18 Broken toe Hyperplasia of prostate Lumbago 10/14/2005 Pure hypercholesterolemia Unspecified essential hypertension Previous Surgical History PAST SURGICAL HISTORY Procedure Laterality Date COLONOSCOPY FLX DX W/COLLJ SPEC WHEN PFRMD 04/09/09 PAST SURGICAL HISTORY OF lipoma, neck PAST SURGICAL HISTORY OF lumbar laminotomy Family History FAMILY HISTORY Problem Relation Age of Onset Diabetes Father lung cancer/chf/starvation Diabetes Sister Diabetes Paternal Grandfather other (Melanoma [Other]) Mother Patient Allergies ALLERGIES Allergen Reactions Lachydrin [Other] Rash Penicillins Current Medications Current Outpatient Medications on File Prior to Visit Medication Sig glimepiride (AMARYL) 2 mg tablet take 1 tablet by mouth once daily with breakfast atorvastatin (LIPITOR) 80 mg tablet take 1 tablet by mouth once daily lisinopril (ZESTRIL, PRINIVIL) 40 mg tablet Take 1 tablet by mouth once daily. metFORMIN ER (GLUCOPHAGE XR) 500 mg 24 hr tablet Take 2 tablets by mouth with breakfast alfuzosin SR (UROXATRAL) 10 mg 24 hr tablet Take 1 tablet by mouth once daily. amLODIPine (NORVASC) 5 mg tablet Take 1 tablet by mouth once daily. betamethasone dipropionate, augmented (DIPROLENE) 0.05 % cream Dr. Bridger Lomax. Apply as needed for eczema. sildenafil (VIAGRA) 100 mg tablet Take one pill 30-60 minutes prior to sexual activity apixaban (ELIQUIS) 5 mg tab(s) Take 1 tablet by mouth twice daily. multivitamin tablet Take 1 tablet by mouth once daily. diphenhydrAMINE (BENADRYL) 25 mg capsule Take 1 capsule by mouth every 6 hours as needed. FLUoxetine (PROZAC) 20 mg capsule Take 1 capsule by mouth once daily. Take one pill every other day dutasteride (AVODART) 0.5 mg capsule Take 1 capsule by mouth once daily. No current facility-administered medications on file prior to visit. Social History Social History Tobacco Use Smoking status: Former Smoker Packs/day: 2.00 Years: 10.00 Pack years: 20.00 Types: Cigarettes Quit date: 10/11/1969 Years since quittin.3 Smokeless tobacco: Never Used Vaping Use Vaping Use: Never used Substance Use Topics Alcohol use: Yes Comment: ocass Drug use: Not on file EXAM: BP 128/66 Pulse 74 Temp 36.7 C (98 F) Resp 14 Wt 77.1 kg (170 lb) BMI 25.66 kg/m General Appearance: Well appearing, alert, in no acute distress, well-hydrated, well nourished.. Lungs: Lungs clear to auscultation. No wheezing, rhonchi, rales.. Heart: RRR without murmur, gallop, or rubs. No ectopy. Abdomen: Normal abdominal exam, Abdomen soft, non-tender. Bowel sounds normal. No masses, organomegaly. Health Maintenance List DILATED RETINAL EXAM Never done DIABETIC FOOT EXAM Never done URINE ALBUMIN:CREATININE RATIO due on 05/08/2020 ADVANCE DIRECTIVE DISCUSSION Never done HBA1C due on 02/11/2022 LDL CHOLESTEROL due on 08/07/2022 DTAP,TDAP,TD(5 - Td or Tdap) due on 01/15/2031 INFLUENZA Completed PNEUMOVAX AGE 65 AND OVER WITH 5YR LOOKBACK Completed SHINGRIX VACCINE Completed COVID-19 VACCINE Completed MENINGOCOCCAL CONJUGATE Aged Out Data reviewed None ASSESSMENT/PLAN: 1. Nausea - ICD9: 787.02, ICD10: R11.0 (primary diagnosis) Protonix for 30 days 2. Essential hypertension, benign - ICD9: 401.1, ICD10: I10 3. Type 2 diabetes mellitus without complication, without long-term current use of insulin (HCC) - ICD9: 250.00, ICD10: E11.9 4. History of CVA (cerebrovascular accident) - ICD9: V12.54, ICD10: Z86.73 5. Depression, unspecified depression type - ICD9: 311, ICD10: F32.A Go back to daily prozac - FLUOXETINE 20 MG CAPSULE Follow up in 1 month Medical Decision Making: Problems: Moderate: New problem with uncertain prognosis and 1+ chronic illnesses with change Risk: Moderate: Drug management Medical Decision Making Level: 4 - Moderate Emilia Reeves MD documented in this encounter [facility] 01-23-2022 Miscellaneous Notes Noted Emilia Reeves MD Protocol recommends home care. Pt has appointment booked with provider today. Care plan reviewed with patient. Patient voices understanding. Advised patient that if symptoms get worse to be evaluated in Urgent Care or ER. Reason for Disposition Unexplained nausea Answer Assessment - Initial Assessment Questions 1. NAUSEA SEVERITY: How bad is the nausea? (e.g., mild, moderate, severe; dehydration, weight loss) - MILD: loss of appetite without change in eating habits - MODERATE: decreased oral intake without significant weight loss, dehydration, or malnutrition - SEVERE: inadequate caloric or fluid intake, significant weight loss, symptoms of dehydration Pt denies loss of appetite, is drinking well. 2. ONSET: Pt reports it began on Wednesday. Face went, felt like he had a fever, fatigued, night sweats. Pt reports he does not want to stand or walk much. did home Covid test that was negative. Took temp while on phone temp was 98.5. 3. VOMITING: Pt denies. 4. RECURRENT SYMPTOM: Pt denies having this type of nausea before. 5. CAUSE: Pt does not know cause. Protocols used: [id number] documented in this encounter [facility] 01-15-2022 Miscellaneous Notes OK to refill as ordered Emilia Reeves MD Pt requesting 90 day supply with refills. Radha Mackay LPN Patient has been identified by name and date of : Yes Patient phones for refill(s): Pending Prescriptions Disp Refills GLIMEPIRIDE 2 MG TABLET 90 tablet 3 Sig: take 1 tablet by mouth once daily with breakfast DARINEL: Yes Date of last office visit in primary care: 11/20/21 next apt 02/26/22 Last 2 Encounter Wt Readings: Date: Wt: 11/20/2021 75.3 kg (166 lb) 09/10/2021 76.7 kg (169 lb) Previous labs/tests for medication: Diabetes: Hemoglobin A1C (%) Date Value 11/14/2021 9.4 08/07/2021 9.5 Please advise. Thank you. Radha Mackay LPN Patient phones requesting refills as follows: Pending Prescriptions Disp Refills GLIMEPIRIDE 2 MG TABLET 90 tablet 11 Sig: take 1 tablet by mouth once daily with breakfast DARINEL: Yes Please review and advise. Carmen Benítez LPN documented in this encounter [facility] 12-02-2021 Miscellaneous Notes OK to refill as ordered Emilia Reeves MD Patient has been identified by name and date of : Yes Pending Prescriptions Disp Refills LISINOPRIL 40 MG TABLET 90 tablet 3 Sig: Take 1 tablet by mouth once daily. DARINEL: No METFORMIN ER 500 MG TABLET,EXTENDED RELEASE 24 HR 180 tablet 3 Sig: Take 2 tablets by mouth with breakfast DARINEL: No ALFUZOSIN ER 10 MG TABLET,EXTENDED RELEASE 24 HR 90 tablet 3 Sig: Take 1 tablet by mouth once daily. DARINEL: No RX INSTRUCTIONS: Please send by tomorrow. Patient aware RX will be sent to pharmacy. No need to notify patient. Nolvia Virgen Pss documented in this encounter [facility] documented as of this encounter (statuses as of 01/06/2022) [facility] History of Past illness Narrative* Problem Noted Date Resolved Date Actinic Keratoses (Premalignant AK's) 08/27/2013 10/27/2016 Seborrheic Keratoses 08/27/2013 03/12/2015 Solar lentigo 08/27/2013 03/12/2015 Xerosis cutis 08/27/2013 03/12/2015 Actinic skin damage 08/27/2013 03/12/2015 Scars 08/27/2013 03/12/2015 Other acne 08/27/2013 03/12/2015 Epidermal cyst 08/27/2013 03/12/2015 Irritated//Inflamed Seborrheic Keratosis 012 03/12/2015 Postinflammatory skin changes 09/13/2012 Other seborrheic dermatitis 09/13/201211/2014 Folliculitis 07/14/2012 04/14/2013 Pyoderma, 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) 07/14/2012 04/14/2013 Actinic Damage//Sun-Damaged Skin 07/14/2012 10/27/2016 Solar Lentigines 07/14/2012 04/14/2013 Leg cramps 06/29/2011 02/25/2012 Epidermal cyst 09/28/2010 02/25/2012 Actinic Keratoses (Premalignant AK's) 09/20/2009 02/25/2012 Seborrheic Keratosis 09/20/2009 02/25/2012 Actinic Damage//Sun-Damaged Skin 09/20/2009 02/25/2012 Solar Lentigines 09/20/2009 02/25/2012 Xerosis cutis 09/20/2009 02/25/2012 Abnormal cardiovascular stress test 08/12/2009 10/27/2016 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 Nonspecific abnormal results of liver function s torito 05/07/2009 04/14/2013 Overview: ALT 36 in 05-19 Abn findings-lung field 05/03/2009 04/14/20 13 Overview: CT 04-18 showed incidental finding of two, 5 mm, non-calc lung nodules at L base ############ (needs repeat in 6 mo) ########### Anemia, unspecified 05/01/2009 10/27/2016 Overview: Hct 34.9% in 04-18, 37.7% in 05-19 (WBC 4.9, PLT 276) Iron 23, Ferritin 968, NL B12 and folate in 04-18: ACD LDH 370 in 04-18 Arleen colored urine with a TBR in serum of 1.88 in 04-18 CT abd/pelvis 04-18: liver/kidney cysts, splenomegaly and 2 small (5 mm), non- calc nodules at L lung base-repeat 6 mo SPEP negative in 04-18 HBsAg neg, Hep A positive, JUAN MIGUEL negative, HIV western blot negative in 04-18 Lumbago 10/14/2005 10/27/2016 Unspecified essential hypertension 02/25/2012 Overview: ED 01-10-09 for CP: ECG with no ischema, CT neg for PE, D-dimer 676 (admit for stress test)-seen by Jerome Moe 01-11-09: 88% APMHR, 10 METS reported transient ischemia that resolved rapidly-rec for repeat stress in 6 mo Creat 1.1 in 01-17, 1 in 07-19 (Mg 2.3) Plan to schedule stress echo at f/u in 05-19 and refer to cardiology (see note from Lisa) Restarted his Lisinopril 10 mg and HCTZ 25 mg in 06-19 Echo stress 06-19: EF from 55% to 75% with stress, no RWMA at 10 METS and 91% APMHR documented as of this encounter (statuses as of 01/15/2022) [facility] History of Past illness Narrative* Problem Noted Date Resolved Date Actinic Keratoses (Premalignant AK's) 08/27/2013 10/27/2016 Seborrheic Keratoses 08/27/2013 03/12/2015 Solar lentigo 08/27/2013 03/12/2015 Xerosis cutis 08/27/2013 03/12/2015 Actinic skin damage 08/27/2013 03/12/2015 Scars 08/27/2013 03/12/2015 Other acne 08/27/2013 03/12/2015 Epidermal cyst 08/27/2013 03/12/2015 Irritated//Inflamed Seborrheic Keratosis 012 03/12/2015 Postinflammatory skin changes 09/13/2012 Other seborrheic dermatitis 09/13/201211/2014 Folliculitis 07/14/2012 04/14/2013 Pyoderma, 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) 07/14/2012 04/14/2013 Actinic Damage//Sun-Damaged Skin 07/14/2012 10/27/2016 Solar Lentigines 07/14/2012 04/14/2013 Leg cramps 06/29/2011 02/25/2012 Epidermal cyst 09/28/2010 02/25/2012 Actinic Keratoses (Premalignant AK's) 09/20/2009 02/25/2012 Seborrheic Keratosis 09/20/2009 02/25/2012 Actinic Damage//Sun-Damaged Skin 09/20/2009 02/25/2012 Solar Lentigines 09/20/2009 02/25/2012 Xerosis cutis 09/20/2009 02/25/2012 Abnormal cardiovascular stress test 08/12/2009 10/27/2016 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 Nonspecific abnormal results of liver function s tudy 05/07/2009 04/14/2013 Overview: ALT 36 in 8-09 Abn findings-lung field 05/03/2009 04/14/20 13 Overview: CT 04-18 showed incidental finding of two, 5 mm, non-calc lung nodules at L base ############ (needs repeat in 6 mo) ########### Anemia, unspecified 05/01/2009 10/27/2016 Overview: Hct 34.9% in 04-18, 37.7% in 05-19 (WBC 4.9, PLT 276) Iron 23, Ferritin 968, NL B12 and folate in 04-18: ACD LDH 370 in 04-18 Arleen colored urine with a TBR in serum of 1.88 in 04-18 CT abd/pelvis 04-18: liver/kidney cysts, splenomegaly and 2 small (5 mm), non- calc nodules at L lung base-repeat 6 mo SPEP negative in 04-18 HBsAg neg, Hep A positive, JUAN MIGUEL negative, HIV western blot negative in 04-18 Lumbago 10/14/2005 10/27/2016 Unspecified essential hypertension 02/25/2012 Overview: ED 01-10-09 for CP: ECG with no ischema, CT neg for PE, D-dimer 676 (admit for stress test)-seen by Jerome Moe 01-11-09: 88% APMHR, 10 METS reported transient ischemia that resolved rapidly-rec for repeat stress in 6 mo Creat 1.1 in 01-17, 1 in 07-19 (Mg 2.3) Plan to schedule stress echo at f/u in 05-19 and refer to cardiology (see note from Lisa) Restarted his Lisinopril 10 mg and HCTZ 25 mg in 06-19 Echo stress 06-19: EF from 55% to 75% with stress, no RWMA at 10 METS and 91% APMHR documented as of this encounter (statuses as of 01/23/2022) [facility] History of Past illness Narrative* Problem Noted Date Resolved Date Actinic Keratoses (Premalignant AK's) 08/27/2013 10/27/2016 Seborrheic Keratoses 08/27/2013 03/12/2015 Solar lentigo 08/27/2013 03/12/2015 Xerosis cutis 08/27/2013 03/12/2015 Actinic skin damage 08/27/2013 03/12/2015 Scars 08/27/2013 03/12/2015 Other acne 08/27/2013 03/12/2015 Epidermal cyst 08/27/2013 03/12/2015 Irritated//Inflamed Seborrheic Keratosis 012 03/12/2015 Postinflammatory skin changes 09/13/2012 Other seborrheic dermatitis 09/13/201211/2014 Folliculitis 07/14/2012 04/14/2013 Pyoderma, 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) 07/14/2012 04/14/2013 Actinic Damage//Sun-Damaged Skin 07/14/2012 10/27/2016 Solar Lentigines 07/14/2012 04/14/2013 Leg cramps 06/29/2011 02/25/2012 Epidermal cyst 09/28/2010 02/25/2012 Actinic Keratoses (Premalignant AK's) 09/20/2009 02/25/2012 Seborrheic Keratosis 09/20/2009 02/25/2012 Actinic Damage//Sun-Damaged Skin 09/20/2009 02/25/2012 Solar Lentigines 09/20/2009 02/25/2012 Xerosis cutis 09/20/2009 02/25/2012 Abnormal cardiovascular stress test 08/12/2009 10/27/2016 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 Nonspecific abnormal results of liver function s tudy 05/07/2009 04/14/2013 Overview: ALT 36 in 05-19 Abn findings-lung field 05/03/2009 04/14/20 13 Overview: CT 04-18 showed incidental finding of two, 5 mm, non-calc lung nodules at L base ############ (needs repeat in 6 mo) ########### Anemia, unspecified 05/01/2009 10/27/2016 Overview: Hct 34.9% in 04-18, 37.7% in 05-19 (WBC 4.9, PLT 276) Iron 23, Ferritin 968, NL B12 and folate in 04-18: ACD LDH 370 in 04-18 Arleen colored urine with a TBR in serum of 1.88 in 04-18 CT abd/pelvis 04-18: liver/kidney cysts, splenomegaly and 2 small (5 mm), non- calc nodules at L lung base-repeat 6 mo SPEP negative in 04-18 HBsAg neg, Hep A positive, JUAN MIGUEL negative, HIV western blot negative in 04-18 Lumbago 10/14/2005 10/27/2016 Unspecified essential hypertension 02/25/2012 Overview: ED 01-10-09 for CP: ECG with no ischema, CT neg for PE, D-dimer 676 (admit for stress test)-seen by Jerome Moe 01-11-09: 88% APMHR, 10 METS reported transient ischemia that resolved rapidly-rec for repeat stress in 6 mo Creat 1.1 in 01-17, 1 in 07-19 (Mg 2.3) Plan to schedule stress echo at f/u in 05-19 and refer to cardiology (see note from Lisa) Restarted his Lisinopril 10 mg and HCTZ 25 mg in 06-19 Echo stress 06-19: EF from 55% to 75% with stress, no RWMA at 10 METS and 91% APMHR documented as of this encounter (statuses as of 01/23/2022) [facility] History of Past illness Narrative* Problem Noted Date Resolved Date Actinic Keratoses (Premalignant AK's) 08/27/2013 10/27/2016 Seborrheic Keratoses 08/27/2013 03/12/2015 Solar lentigo 08/27/2013 03/12/2015 Xerosis cutis 08/27/2013 03/12/2015 Actinic skin damage 08/27/2013 03/12/2015 Scars 08/27/2013 03/12/2015 Other acne 08/27/2013 03/12/2015 Epidermal cyst 08/27/2013 03/12/2015 Irritated//Inflamed Seborrheic Keratosis 012 03/12/2015 Postinflammatory skin changes 09/13/2012 Other seborrheic dermatitis 09/13/201211/2014 Folliculitis 07/14/2012 04/14/2013 Pyoderma, 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) 07/14/2012 04/14/2013 Actinic Damage//Sun-Damaged Skin 07/14/2012 10/27/2016 Solar Lentigines 07/14/2012 04/14/2013 Leg cramps 06/29/2011 02/25/2012 Epidermal cyst 09/28/2010 02/25/2012 Actinic Keratoses (Premalignant AK's) 09/20/2009 02/25/2012 Seborrheic Keratosis 09/20/2009 02/25/2012 Actinic Damage//Sun-Damaged Skin 09/20/2009 02/25/2012 Solar Lentigines 09/20/2009 02/25/2012 Xerosis cutis 09/20/2009 02/25/2012 Abnormal cardiovascular stress test 08/12/2009 10/27/2016 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 Nonspecific abnormal results of liver function s torito 05/07/2009 04/14/2013 Overview: ALT 36 in 05-19 Abn findings-lung field 05/03/2009 04/14/20 13 Overview: CT 04-18 showed incidental finding of two, 5 mm, non-calc lung nodules at L base ############ (needs repeat in 6 mo) ########### Anemia, unspecified 05/01/2009 10/27/2016 Overview: Hct 34.9% in 04-18, 37.7% in 05-19 (WBC 4.9, PLT 276) Iron 23, Ferritin 968, NL B12 and folate in 04-18: ACD LDH 370 in 04-18 Arleen colored urine with a TBR in serum of 1.88 in 04-18 CT abd/pelvis 04-18: liver/kidney cysts, splenomegaly and 2 small (5 mm), non- calc nodules at L lung base-repeat 6 mo SPEP negative in 04-18 HBsAg neg, Hep A positive, JUAN MIGUEL negative, HIV western blot negative in 04-18 Lumbago 10/14/2005 10/27/2016 Unspecified essential hypertension 02/25/2012 Overview: ED 01-10-09 for CP: ECG with no ischema, CT neg for PE, D-dimer 676 (admit for stress test)-seen by Jerome Moe 01-11-09: 88% APMHR, 10 METS reported transient ischemia that resolved rapidly-rec for repeat stress in 6 mo Creat 1.1 in 01-17, 1 in 07-19 (Mg 2.3) Plan to schedule stress echo at f/u in 05-19 and refer to cardiology (see note from Lisa) Restarted his Lisinopril 10 mg and HCTZ 25 mg in 06-19 Echo stress 06-19: EF from 55% to 75% with stress, no RWMA at 10 METS and 91% APMHR documented as of this encounter (statuses as of 02/26/2022) [facility] History of Past illness Narrative* Problem Noted Date Resolved Date Actinic Keratoses (Premalignant AK's) 08/27/2013 10/27/2016 Seborrheic Keratoses 08/27/2013 03/12/2015 Solar lentigo 08/27/2013 03/12/2015 Xerosis cutis 08/27/2013 03/12/2015 Actinic skin damage 08/27/2013 03/12/2015 Scars 08/27/2013 03/12/2015 Other acne 08/27/2013 03/12/2015 Epidermal cyst 08/27/2013 03/12/2015 Irritated//Inflamed Seborrheic Keratosis 012 03/12/2015 Postinflammatory skin changes 09/13/2012 Other seborrheic dermatitis 09/13/2012 06/11/2014 Folliculitis 07/14/2012 04/14/2013 Pyoderma, 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) 07/14/2012 04/14/2013 Actinic Damage//Sun-Damaged Skin 07/14/2012 10/27/2016 Solar Lentigines 07/14/2012 04/14/2013 Leg cramps 06/29/2011 02/25/2012 Epidermal cyst 09/28/2010 02/25/2012 Actinic Keratoses (Premalignant AK's) 09/20/2009 02/25/2012 Seborrheic Keratosis 09/20/2009 02/25/2012 Actinic Damage//Sun-Damaged Skin 09/20/2009 02/25/2012 Solar Lentigines 09/20/2009 02/25/2012 Xerosis cutis 09/20/2009 02/25/2012 Abnormal cardiovascular stress test 08/12/2009 10/27/2016 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 Nonspecific abnormal results of liver function s torito 05/07/2009 04/14/2013 Overview: ALT 36 in 05-19 Abn findings-lung field 05/03/2009 04/14/20 13 Overview: CT 04-18 showed incidental finding of two, 5 mm, non-calc lung nodules at L base ############ (needs repeat in 6 mo) ########### Anemia, unspecified 05/01/2009 10/27/2016 Overview: Hct 34.9% in 04-18, 37.7% in 05-19 (WBC 4.9, PLT 276) Iron 23, Ferritin 968, NL B12 and folate in 04-18: ACD LDH 370 in 04-18 Arleen colored urine with a TBR in serum of 1.88 in 04-18 CT abd/pelvis 04-18: liver/kidney cysts, splenomegaly and 2 small (5 mm), non- calc nodules at L lung base-repeat 6 mo SPEP negative in 04-18 HBsAg neg, Hep A positive, JUAN MIGUEL negative, HIV western blot negative in 04-18 Lumbago 10/14/2005 10/27/2016 Unspecified essential hypertension 02/25/2012 Overview: ED 01-10-09 for CP: ECG with no ischema, CT neg for PE, D-dimer 676 (admit for stress test)-seen by Jerome Moe 01-11-09: 88% APMHR, 10 METS reported transient ischemia that resolved rapidly-rec for repeat stress in 6 mo Creat 1.1 in 01-17, 1 in 07-19 (Mg 2.3) Plan to schedule stress echo at f/u in 05-19 and refer to cardiology (see note from Lisa) Restarted his Lisinopril 10 mg and HCTZ 25 mg in 06-19 Echo stress 06-19: EF from 55% to 75% with stress, no RWMA at 10 METS and 91% APMHR documented as of this encounter (statuses as of 04/03/2022) [facility] History of Past illness Narrative* Problem Noted Date Resolved Date Actinic Keratoses (Premalignant AK's) 08/27/2013 10/27/2016 Seborrheic Keratoses 08/27/2013 03/12/2015 Solar lentigo 08/27/2013 03/12/2015 Xerosis cutis 08/27/2013 03/12/2015 Actinic skin damage 08/27/2013 03/12/2015 Scars 08/27/2013 03/12/2015 Other acne 08/27/2013 03/12/2015 Epidermal cyst 08/27/2013 03/12/2015 Irritated//Inflamed Seborrheic Keratosis 012 03/12/2015 Postinflammatory skin changes 09/13/2012 Other seborrheic dermatitis 09/13/2012 06/11/2014 Folliculitis 07/14/2012 04/14/2013 Pyoderma, 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) 07/14/2012 04/14/2013 Actinic Damage//Sun-Damaged Skin 07/14/2012 10/27/2016 Solar Lentigines 07/14/2012 04/14/2013 Leg cramps 06/29/2011 02/25/2012 Epidermal cyst 09/28/2010 02/25/2012 Actinic Keratoses (Premalignant AK's) 09/20/2009 02/25/2012 Seborrheic Keratosis 09/20/2009 02/25/2012 Actinic Damage//Sun-Damaged Skin 09/20/2009 02/25/2012 Solar Lentigines 09/20/2009 02/25/2012 Xerosis cutis 09/20/2009 02/25/2012 Abnormal cardiovascular stress test 08/12/2009 10/27/2016 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 Nonspecific abnormal results of liver function s susandy 05/07/2009 04/14/2013 Overview: ALT 36 in 05-19 Abn findings-lung field 05/03/2009 04/14/20 13 Overview: CT 04-18 showed incidental finding of two, 5 mm, non-calc lung nodules at L base ############ (needs repeat in 6 mo) ########### Anemia, unspecified 05/01/2009 10/27/2016 Overview: Hct 34.9% in 04-18, 37.7% in 05-19 (WBC 4.9, PLT 276) Iron 23, Ferritin 968, NL B12 and folate in 04-18: ACD LDH 370 in 04-18 Arleen colored urine with a TBR in serum of 1.88 in 04-18 CT abd/pelvis 04-18: liver/kidney cysts, splenomegaly and 2 small (5 mm), non- calc nodules at L lung base-repeat 6 mo SPEP negative in 04-18 HBsAg neg, Hep A positive, JUAN MIGUEL negative, HIV western blot negative in 04-18 Lumbago 10/14/2005 10/27/2016 Unspecified essential hypertension 02/25/2012 Overview: ED 01-10-09 for CP: ECG with no ischema, CT neg for PE, D-dimer 676 (admit for stress test)-seen by Jerome Moe 01-11-09: 88% APMHR, 10 METS reported transient ischemia that resolved rapidly-rec for repeat stress in 6 mo Creat 1.1 in 01-17, 1 in 07-19 (Mg 2.3) Plan to schedule stress echo at f/u in 05-19 and refer to cardiology (see note from Lisa) Restarted his Lisinopril 10 mg and HCTZ 25 mg in 06-19 Echo stress 06-19: EF from 55% to 75% with stress, no RWMA at 10 METS and 91% APMHR documented as of this encounter (statuses as of 04/09/2022) [facility] History of Past illness Narrative* Problem Noted Date Resolved Date Actinic Keratoses (Premalignant AK's) 08/27/2013 10/27/2016 Seborrheic Keratoses 08/27/2013 03/12/2015 Solar lentigo 08/27/2013 03/12/2015 Xerosis cutis 08/27/2013 03/12/2015 Actinic skin damage 08/27/2013 03/12/2015 Scars 08/27/2013 03/12/2015 Other acne 08/27/2013 03/12/2015 Epidermal cyst 08/27/2013 03/12/2015 Irritated//Inflamed Seborrheic Keratosis 012 03/12/2015 Postinflammatory skin changes 09/13/2012 Other seborrheic dermatitis 09/13/2012 06/11/2014 Folliculitis 07/14/2012 04/14/2013 Pyoderma, 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) 07/14/2012 04/14/2013 Actinic Damage//Sun-Damaged Skin 07/14/2012 10/27/2016 Solar Lentigines 07/14/2012 04/14/2013 Leg cramps 06/29/2011 02/25/2012 Epidermal cyst 09/28/2010 02/25/2012 Actinic Keratoses (Premalignant AK's) 09/20/2009 02/25/2012 Seborrheic Keratosis 09/20/2009 02/25/2012 Actinic Damage//Sun-Damaged Skin 09/20/2009 02/25/2012 Solar Lentigines 09/20/2009 02/25/2012 Xerosis cutis 09/20/2009 02/25/2012 Abnormal cardiovascular stress test 08/12/2009 10/27/2016 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 Nonspecific abnormal results of liver function s susandy 05/07/2009 04/14/2013 Overview: ALT 36 in 05-19 Abn findings-lung field 05/03/2009 04/14/20 13 Overview: CT 04-18 showed incidental finding of two, 5 mm, non-calc lung nodules at L base ############ (needs repeat in 6 mo) ########### Anemia, unspecified 05/01/2009 10/27/2016 Overview: Hct 34.9% in 04-18, 37.7% in 05-19 (WBC 4.9, PLT 276) Iron 23, Ferritin 968, NL B12 and folate in 04-18: ACD LDH 370 in 04-18 Arleen colored urine with a TBR in serum of 1.88 in 04-18 CT abd/pelvis 04-18: liver/kidney cysts, splenomegaly and 2 small (5 mm), non- calc nodules at L lung base-repeat 6 mo SPEP negative in 04-18 HBsAg neg, Hep A positive, JUAN MIGUEL negative, HIV western blot negative in 04-18 Lumbago 10/14/2005 10/27/2016 Unspecified essential hypertension 02/25/2012 Overview: ED 01-10-09 for CP: ECG with no ischema, CT neg for PE, D-dimer 676 (admit for stress test)-seen by Jerome Stress 01-11-09: 88% APMHR, 10 METS reported transient ischemia that resolved rapidly-rec for repeat stress in 6 mo Creat 1.1 in 01-17, 1 in 07-19 (Mg 2.3) Plan to schedule stress echo at f/u in 05-19 and refer to cardiology (see note from Lisa) Restarted his Lisinopril 10 mg and HCTZ 25 mg in 06-19 Echo stress 06-19: EF from 55% to 75% with stress, no RWMA at 10 METS and 91% APMHR documented as of this encounter (statuses as of 04/27/2022) [facility] History of Past illness Narrative* Problem Noted Date Resolved Date Actinic Keratoses (Premalignant AK's) 08/27/2013 10/27/2016 Seborrheic Keratoses 08/27/2013 03/12/2015 Solar lentigo 08/27/2013 03/12/2015 Xerosis cutis 08/27/2013 03/12/2015 Actinic skin damage 08/27/2013 03/12/2015 Scars 08/27/2013 03/12/2015 Other acne 08/27/2013 03/12/2015 Epidermal cyst 08/27/2013 03/12/2015 Irritated//Inflamed Seborrheic Keratosis 012 03/12/2015 Postinflammatory skin changes 09/13/2012 Other seborrheic dermatitis 09/13/2012 06/11/2014 Folliculitis 07/14/2012 04/14/2013 Pyoderma, 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) 07/14/2012 04/14/2013 Actinic Damage//Sun-Damaged Skin 07/14/2012 10/27/2016 Solar Lentigines 07/14/2012 04/14/2013 Leg cramps 06/29/2011 02/25/2012 Epidermal cyst 09/28/2010 02/25/2012 Actinic Keratoses (Premalignant AK's) 09/20/2009 02/25/2012 Seborrheic Keratosis 09/20/2009 02/25/2012 Actinic Damage//Sun-Damaged Skin 09/20/2009 02/25/2012 Solar Lentigines 09/20/2009 02/25/2012 Xerosis cutis 09/20/2009 02/25/2012 Abnormal cardiovascular stress test 08/12/2009 10/27/2016 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 Nonspecific abnormal results of liver function s tudy 05/07/2009 04/14/2013 Overview: ALT 36 in 05-19 Abn findings-lung field 05/03/2009 04/14/20 13 Overview: CT 04-18 showed incidental finding of two, 5 mm, non-calc lung nodules at L base ############ (needs repeat in 6 mo) ########### Anemia, unspecified 05/01/2009 10/27/2016 Overview: Hct 34.9% in 04-18, 37.7% in 05-19 (WBC 4.9, PLT 276) Iron 23, Ferritin 968, NL B12 and folate in 04-18: ACD LDH 370 in 04-18 Arleen colored urine with a TBR in serum of 1.88 in 04-18 CT abd/pelvis 04-18: liver/kidney cysts, splenomegaly and 2 small (5 mm), non- calc nodules at L lung base-repeat 6 mo SPEP negative in 04-18 HBsAg neg, Hep A positive, JUAN MIGUEL negative, HIV western blot negative in 04-18 Lumbago 10/14/2005 10/27/2016 Unspecified essential hypertension 02/25/2012 Overview: ED 01-10-09 for CP: ECG with no ischema, CT neg for PE, D-dimer 676 (admit for stress test)-seen by Jerome Moe 01-11-09: 88% APMHR, 10 METS reported transient ischemia that resolved rapidly-rec for repeat stress in 6 mo Creat 1.1 in 01-17, 1 in 10-09 (Mg 2.3) Plan to schedule stress echo at f/u in 05-19 and refer to cardiology (see note from Lisa) Restarted his Lisinopril 10 mg and HCTZ 25 mg in 06-19 Echo stress 06-19: EF from 55% to 75% with stress, no RWMA at 10 METS and 91% APMHR documented as of this encounter (statuses as of 04/28/2022) [facility] History of Past illness Narrative* Problem Noted Date Resolved Date Actinic Keratoses (Premalignant AK's) 08/27/2013 10/27/2016 Seborrheic Keratoses 08/27/2013 03/12/2015 Solar lentigo 08/27/2013 03/12/2015 Xerosis cutis 08/27/2013 03/12/2015 Actinic skin damage 08/27/2013 03/12/2015 Scars 08/27/2013 03/12/2015 Other acne 08/27/2013 03/12/2015 Epidermal cyst 08/27/2013 03/12/2015 Irritated//Inflamed Seborrheic Keratosis 012 03/12/2015 Postinflammatory skin changes 09/13/2012 Other seborrheic dermatitis 09/13/201211/2014 Folliculitis 07/14/2012 04/14/2013 Pyoderma, 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) 07/14/2012 04/14/2013 Actinic Damage//Sun-Damaged Skin 07/14/2012 10/27/2016 Solar Lentigines 07/14/2012 04/14/2013 Leg cramps 06/29/2011 02/25/2012 Epidermal cyst 09/28/2010 02/25/2012 Actinic Keratoses (Premalignant AK's) 09/20/2009 02/25/2012 Seborrheic Keratosis 09/20/2009 02/25/2012 Actinic Damage//Sun-Damaged Skin 09/20/2009 02/25/2012 Solar Lentigines 09/20/2009 02/25/2012 Xerosis cutis 09/20/2009 02/25/2012 Abnormal cardiovascular stress test 08/12/2009 10/27/2016 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 Nonspecific abnormal results of liver function s torito 05/07/2009 04/14/2013 Overview: ALT 36 in 05-19 Abn findings-lung field 05/03/2009 04/14/20 13 Overview: CT 04-18 showed incidental finding of two, 5 mm, non-calc lung nodules at L base ############ (needs repeat in 6 mo) ########### Anemia, unspecified 05/01/2009 10/27/2016 Overview: Hct 34.9% in 04-18, 37.7% in 05-19 (WBC 4.9, PLT 276) Iron 23, Ferritin 968, NL B12 and folate in 04-18: ACD LDH 370 in 04-18 Arleen colored urine with a TBR in serum of 1.88 in 04-18 CT abd/pelvis 04-18: liver/kidney cysts, splenomegaly and 2 small (5 mm), non- calc nodules at L lung base-repeat 6 mo SPEP negative in 04-18 HBsAg neg, Hep A positive, JUAN MIGUEL negative, HIV western blot negative in 04-18 Lumbago 10/14/2005 10/27/2016 Unspecified essential hypertension 02/25/2012 Overview: ED 01-10-09 for CP: ECG with no ischema, CT neg for PE, D-dimer 676 (admit for stress test)-seen by Jerome Moe 01-11-09: 88% APMHR, 10 METS reported transient ischemia that resolved rapidly-rec for repeat stress in 6 mo Creat 1.1 in 01-17, 1 in 07-19 (Mg 2.3) Plan to schedule stress echo at f/u in 05-19 and refer to cardiology (see note from Lisa) Restarted his Lisinopril 10 mg and HCTZ 25 mg in 06-19 Echo stress 06-19: EF from 55% to 75% with stress, no RWMA at 10 METS and 91% APMHR documented as of this encounter (statuses as of 06/02/2022) [facility] History of Past illness Narrative* Problem Noted Date Resolved Date Actinic Keratoses (Premalignant AK's) 08/27/2013 10/27/2016 Seborrheic Keratoses 08/27/2013 03/12/2015 Solar lentigo 08/27/2013 03/12/2015 Xerosis cutis 08/27/2013 03/12/2015 Actinic skin damage 08/27/2013 03/12/2015 Scars 08/27/2013 03/12/2015 Other acne 08/27/2013 03/12/2015 Epidermal cyst 08/27/2013 03/12/2015 Irritated//Inflamed Seborrheic Keratosis 012 03/12/2015 Postinflammatory skin changes 09/13/2012 Other seborrheic dermatitis 09/13/201211/2014 Folliculitis 07/14/2012 04/14/2013 Pyoderma, 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) 07/14/2012 04/14/2013 Actinic Damage//Sun-Damaged Skin 07/14/2012 10/27/2016 Solar Lentigines 07/14/2012 04/14/2013 Leg cramps 06/29/2011 02/25/2012 Epidermal cyst 09/28/2010 02/25/2012 Actinic Keratoses (Premalignant AK's) 09/20/2009 02/25/2012 Seborrheic Keratosis 09/20/2009 02/25/2012 Actinic Damage//Sun-Damaged Skin 09/20/2009 02/25/2012 Solar Lentigines 09/20/2009 02/25/2012 Xerosis cutis 09/20/2009 02/25/2012 Abnormal cardiovascular stress test 08/12/2009 10/27/2016 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 Nonspecific abnormal results of liver function s torito 05/07/2009 04/14/2013 Overview: ALT 36 in 05-19 Abn findings-lung field 05/03/2009 04/14/20 13 Overview: CT 04-18 showed incidental finding of two, 5 mm, non-calc lung nodules at L base ############ (needs repeat in 6 mo) ########### Anemia, unspecified 05/01/2009 10/27/2016 Overview: Hct 34.9% in 04-18, 37.7% in 05-19 (WBC 4.9, PLT 276) Iron 23, Ferritin 968, NL B12 and folate in 04-18: ACD LDH 370 in 04-18 Arleen colored urine with a TBR in serum of 1.88 in 04-18 CT abd/pelvis 04-18: liver/kidney cysts, splenomegaly and 2 small (5 mm), non- calc nodules at L lung base-repeat 6 mo SPEP negative in 04-18 HBsAg neg, Hep A positive, JUAN MIGUEL negative, HIV western blot negative in 04-18 Lumbago 10/14/2005 10/27/2016 Unspecified essential hypertension 02/25/2012 Overview: ED 01-10-09 for CP: ECG with no ischema, CT neg for PE, D-dimer 676 (admit for stress test)-seen by Jerome Moe 01-11-09: 88% APMHR, 10 METS reported transient ischemia that resolved rapidly-rec for repeat stress in 6 mo Creat 1.1 in 01-17, 1 in 07-19 (Mg 2.3) Plan to schedule stress echo at f/u in 05-19 and refer to cardiology (see note from Lisa) Restarted his Lisinopril 10 mg and HCTZ 25 mg in 06-19 Echo stress 06-19: EF from 55% to 75% with stress, no RWMA at 10 METS and 91% APMHR documented as of this encounter (statuses as of 11/09/2022) [facility] History of Past illness Narrative* Problem Noted Date Resolved Date Actinic Keratoses (Premalignant AK's) 08/27/2013 10/27/2016 Seborrheic Keratoses 08/27/2013 03/12/2015 Solar lentigo 08/27/2013 03/12/2015 Xerosis cutis 08/27/2013 03/12/2015 Actinic skin damage 08/27/2013 03/12/2015 Scars 08/27/2013 03/12/2015 Other acne 08/27/2013 03/12/2015 Epidermal cyst 08/27/2013 03/12/2015 Irritated//Inflamed Seborrheic Keratosis 012 03/12/2015 Postinflammatory skin changes 09/13/2012 Other seborrheic dermatitis 09/13/201211/2014 Folliculitis 07/14/2012 04/14/2013 Pyoderma, 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) 07/14/2012 04/14/2013 Actinic Damage//Sun-Damaged Skin 07/14/2012 10/27/2016 Solar Lentigines 07/14/2012 04/14/2013 Leg cramps 06/29/2011 02/25/2012 Epidermal cyst 09/28/2010 02/25/2012 Actinic Keratoses (Premalignant AK's) 09/20/2009 02/25/2012 Seborrheic Keratosis 09/20/2009 02/25/2012 Actinic Damage//Sun-Damaged Skin 09/20/2009 02/25/2012 Solar Lentigines 09/20/2009 02/25/2012 Xerosis cutis 09/20/2009 02/25/2012 Abnormal cardiovascular stress test 08/12/2009 10/27/2016 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 Nonspecific abnormal results of liver function s torito 05/07/2009 04/14/2013 Overview: ALT 36 in 8-09 Abn findings-lung field 05/03/2009 04/14/20 13 Overview: CT 04-18 showed incidental finding of two, 5 mm, non-calc lung nodules at L base ############ (needs repeat in 6 mo) ########### Anemia, unspecified 05/01/2009 10/27/2016 Overview: Hct 34.9% in 04-18, 37.7% in 05-19 (WBC 4.9, PLT 276) Iron 23, Ferritin 968, NL B12 and folate in 04-18: ACD LDH 370 in 04-18 Arleen colored urine with a TBR in serum of 1.88 in 04-18 CT abd/pelvis 04-18: liver/kidney cysts, splenomegaly and 2 small (5 mm), non- calc nodules at L lung base-repeat 6 mo SPEP negative in 04-18 HBsAg neg, Hep A positive, JUAN MIGUEL negative, HIV western blot negative in 04-18 Lumbago 10/14/2005 10/27/2016 Unspecified essential hypertension 02/25/2012 Overview: ED 01-10-09 for CP: ECG with no ischema, CT neg for PE, D-dimer 676 (admit for stress test)-seen by Jerome Moe 01-11-09: 88% APMHR, 10 METS reported transient ischemia that resolved rapidly-rec for repeat stress in 6 mo Creat 1.1 in 01-17, 1 in 07-19 (Mg 2.3) Plan to schedule stress echo at f/u in 05-19 and refer to cardiology (see note from Lisa) Restarted his Lisinopril 10 mg and HCTZ 25 mg in 06-19 Echo stress 06-19: EF from 55% to 75% with stress, no RWMA at 10 METS and 91% APMHR documented as of this encounter (statuses as of 11/10/2022) [facility] History of Past illness Narrative* Problem Noted Date Resolved Date Actinic Keratoses (Premalignant AK's) 08/27/2013 10/27/2016 Seborrheic Keratoses 08/27/2013 03/12/2015 Solar lentigo 08/27/2013 03/12/2015 Xerosis cutis 08/27/2013 03/12/2015 Actinic skin damage 08/27/2013 03/12/2015 Scars 08/27/2013 03/12/2015 Other acne 08/27/2013 03/12/2015 Epidermal cyst 08/27/2013 03/12/2015 Irritated//Inflamed Seborrheic Keratosis 012 03/12/2015 Postinflammatory skin changes 09/13/2012 Other seborrheic dermatitis 09/13/201211/2014 Folliculitis 07/14/2012 04/14/2013 Pyoderma, 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) 07/14/2012 04/14/2013 Actinic Damage//Sun-Damaged Skin 07/14/2012 10/27/2016 Solar Lentigines 07/14/2012 04/14/2013 Leg cramps 06/29/2011 02/25/2012 Epidermal cyst 09/28/2010 02/25/2012 Actinic Keratoses (Premalignant AK's) 09/20/2009 02/25/2012 Seborrheic Keratosis 09/20/2009 02/25/2012 Actinic Damage//Sun-Damaged Skin 09/20/2009 02/25/2012 Solar Lentigines 09/20/2009 02/25/2012 Xerosis cutis 09/20/2009 02/25/2012 Abnormal cardiovascular stress test 08/12/2009 10/27/2016 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 Nonspecific abnormal results of liver function s tudy 05/07/2009 04/14/2013 Overview: ALT 36 in 05-19 Abn findings-lung field 05/03/2009 04/14/20 13 Overview: CT 04-18 showed incidental finding of two, 5 mm, non-calc lung nodules at L base ############ (needs repeat in 6 mo) ########### Anemia, unspecified 05/01/2009 10/27/2016 Overview: Hct 34.9% in 04-18, 37.7% in 05-19 (WBC 4.9, PLT 276) Iron 23, Ferritin 968, NL B12 and folate in 04-18: ACD LDH 370 in 04-18 Arleen colored urine with a TBR in serum of 1.88 in 04-18 CT abd/pelvis 04-18: liver/kidney cysts, splenomegaly and 2 small (5 mm), non- calc nodules at L lung base-repeat 6 mo SPEP negative in 04-18 HBsAg neg, Hep A positive, JUAN MIGUEL negative, HIV western blot negative in 04-18 Lumbago 10/14/2005 10/27/2016 Unspecified essential hypertension 02/25/2012 Overview: ED 01-10-09 for CP: ECG with no ischema, CT neg for PE, D-dimer 676 (admit for stress test)-seen by Jerome Moe 01-11-09: 88% APMHR, 10 METS reported transient ischemia that resolved rapidly-rec for repeat stress in 6 mo Creat 1.1 in 01-17, 1 in 07-19 (Mg 2.3) Plan to schedule stress echo at f/u in 05-19 and refer to cardiology (see note from Lisa) Restarted his Lisinopril 10 mg and HCTZ 25 mg in 06-19 Echo stress 06-19: EF from 55% to 75% with stress, no RWMA at 10 METS and 91% APMHR documented as of this encounter (statuses as of 12/10/2022) [facility] History of Past illness Narrative* Problem Noted Date Resolved Date Actinic Keratoses (Premalignant AK's) 08/27/2013 10/27/2016 Seborrheic Keratoses 08/27/2013 03/12/2015 Solar lentigo 08/27/2013 03/12/2015 Xerosis cutis 08/27/2013 03/12/2015 Actinic skin damage 08/27/2013 03/12/2015 Scars 08/27/2013 03/12/2015 Other acne 08/27/2013 03/12/2015 Epidermal cyst 08/27/2013 03/12/2015 Irritated//Inflamed Seborrheic Keratosis 012 03/12/2015 Postinflammatory skin changes 09/13/2012 Other seborrheic dermatitis 09/13/2012 06/11/2014 Folliculitis 07/14/2012 04/14/2013 Pyoderma, 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) 07/14/2012 04/14/2013 Actinic Damage//Sun-Damaged Skin 07/14/2012 10/27/2016 Solar Lentigines 07/14/2012 04/14/2013 Leg cramps 06/29/2011 02/25/2012 Epidermal cyst 09/28/2010 02/25/2012 Actinic Keratoses (Premalignant AK's) 09/20/2009 02/25/2012 Seborrheic Keratosis 09/20/2009 02/25/2012 Actinic Damage//Sun-Damaged Skin 09/20/2009 02/25/2012 Solar Lentigines 09/20/2009 02/25/2012 Xerosis cutis 09/20/2009 02/25/2012 Abnormal cardiovascular stress test 08/12/2009 10/27/2016 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 Nonspecific abnormal results of liver function s susandy 05/07/2009 04/14/2013 Overview: ALT 36 in 05-19 Abn findings-lung field 05/03/2009 04/14/20 13 Overview: CT 04-18 showed incidental finding of two, 5 mm, non-calc lung nodules at L base ############ (needs repeat in 6 mo) ########### Anemia, unspecified 05/01/2009 10/27/2016 Overview: Hct 34.9% in 04-18, 37.7% in 05-19 (WBC 4.9, PLT 276) Iron 23, Ferritin 968, NL B12 and folate in 04-18: ACD LDH 370 in 04-18 Arleen colored urine with a TBR in serum of 1.88 in 04-18 CT abd/pelvis 04-18: liver/kidney cysts, splenomegaly and 2 small (5 mm), non- calc nodules at L lung base-repeat 6 mo SPEP negative in 04-18 HBsAg neg, Hep A positive, JUAN MIGUEL negative, HIV western blot negative in 04-18 Lumbago 10/14/2005 10/27/2016 Unspecified essential hypertension 02/25/2012 Overview: ED 01-10-09 for CP: ECG with no ischema, CT neg for PE, D-dimer 676 (admit for stress test)-seen by Jerome Moe 01-11-09: 88% APMHR, 10 METS reported transient ischemia that resolved rapidly-rec for repeat stress in 6 mo Creat 1.1 in 01-17, 1 in 07-19 (Mg 2.3) Plan to schedule stress echo at f/u in 05-19 and refer to cardiology (see note from Lisa) Restarted his Lisinopril 10 mg and HCTZ 25 mg in 06-19 Echo stress 06-19: EF from 55% to 75% with stress, no RWMA at 10 METS and 91% APMHR documented as of this encounter (statuses as of 12/28/2022) [facility] History of Past illness Narrative* Problem Noted Date Resolved Date Actinic Keratoses (Premalignant AK's) 08/27/2013 10/27/2016 Seborrheic Keratoses 08/27/2013 03/12/2015 Solar lentigo 08/27/2013 03/12/2015 Xerosis cutis 08/27/2013 03/12/2015 Actinic skin damage 08/27/2013 03/12/2015 Scars 08/27/2013 03/12/2015 Other acne 08/27/2013 03/12/2015 Epidermal cyst 08/27/2013 03/12/2015 Irritated//Inflamed Seborrheic Keratosis 012 03/12/2015 Postinflammatory skin changes 09/13/2012 Other seborrheic dermatitis 09/13/2012 11/2014 Folliculitis 07/14/2012 04/14/2013 Pyoderma, 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) 07/14/2012 04/14/2013 Actinic Damage//Sun-Damaged Skin 07/14/2012 10/27/2016 Solar Lentigines 07/14/2012 04/14/2013 Leg cramps 06/29/2011 02/25/2012 Epidermal cyst 09/28/2010 02/25/2012 Actinic Keratoses (Premalignant AK's) 09/20/2009 02/25/2012 Seborrheic Keratosis 09/20/2009 02/25/2012 Actinic Damage//Sun-Damaged Skin 09/20/2009 02/25/2012 Solar Lentigines 09/20/2009 02/25/2012 Xerosis cutis 09/20/2009 02/25/2012 Abnormal cardiovascular stress test 08/12/2009 10/27/2016 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 Nonspecific abnormal results of liver function s susandy 05/07/2009 04/14/2013 Overview: ALT 36 in 05-19 Abn findings-lung field 05/03/2009 04/14/20 13 Overview: CT 04-18 showed incidental finding of two, 5 mm, non-calc lung nodules at L base ############ (needs repeat in 6 mo) ########### Anemia, unspecified 05/01/2009 10/27/2016 Overview: Hct 34.9% in 04-18, 37.7% in 05-19 (WBC 4.9, PLT 276) Iron 23, Ferritin 968, NL B12 and folate in 04-18: ACD LDH 370 in 04-18 Arleen colored urine with a TBR in serum of 1.88 in 04-18 CT abd/pelvis 04-18: liver/kidney cysts, splenomegaly and 2 small (5 mm), non- calc nodules at L lung base-repeat 6 mo SPEP negative in 04-18 HBsAg neg, Hep A positive, JUAN MIGUEL negative, HIV western blot negative in 04-18 Lumbago 10/14/2005 10/27/2016 Unspecified essential hypertension 02/25/2012 Overview: ED 01-10-09 for CP: ECG with no ischema, CT neg for PE, D-dimer 676 (admit for stress test)-seen by Jerome Moe 01-11-09: 88% APMHR, 10 METS reported transient ischemia that resolved rapidly-rec for repeat stress in 6 mo Creat 1.1 in 01-17, 1 in 07-19 (Mg 2.3) Plan to schedule stress echo at f/u in 05-19 and refer to cardiology (see note from Lisa) Restarted his Lisinopril 10 mg and HCTZ 25 mg in 06-19 Echo stress 06-19: EF from 55% to 75% with stress, no RWMA at 10 METS and 91% APMHR documented as of this encounter (statuses as of 02/05/2023) [facility] History of Past illness Narrative* Problem Noted Date Resolved Date Actinic Keratoses (Premalignant AK's) 08/27/2013 10/27/2016 Seborrheic Keratoses 08/27/2013 03/12/2015 Solar lentigo 08/27/2013 03/12/2015 Xerosis cutis 08/27/2013 03/12/2015 Actinic skin damage 08/27/2013 03/12/2015 Scars 08/27/2013 03/12/2015 Other acne 08/27/2013 03/12/2015 Epidermal cyst 08/27/2013 03/12/2015 Irritated//Inflamed Seborrheic Keratosis 012 03/12/2015 Postinflammatory skin changes 09/13/2012 Other seborrheic dermatitis 09/13/2012 06/11/2014 Folliculitis 07/14/2012 04/14/2013 Pyoderma, 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) 07/14/2012 04/14/2013 Actinic Damage//Sun-Damaged Skin 07/14/2012 10/27/2016 Solar Lentigines 07/14/2012 04/14/2013 Leg cramps 06/29/2011 02/25/2012 Epidermal cyst 09/28/2010 02/25/2012 Actinic Keratoses (Premalignant AK's) 09/20/2009 02/25/2012 Seborrheic Keratosis 09/20/2009 02/25/2012 Actinic Damage//Sun-Damaged Skin 09/20/2009 02/25/2012 Solar Lentigines 09/20/2009 02/25/2012 Xerosis cutis 09/20/2009 02/25/2012 Abnormal cardiovascular stress test 08/12/2009 10/27/2016 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 Nonspecific abnormal results of liver function s susandy 05/07/2009 04/14/2013 Overview: ALT 36 in 05-19 Abn findings-lung field 05/03/2009 04/14/20 13 Overview: CT 04-18 showed incidental finding of two, 5 mm, non-calc lung nodules at L base ############ (needs repeat in 6 mo) ########### Anemia, unspecified 05/01/2009 10/27/2016 Overview: Hct 34.9% in 04-18, 37.7% in 05-19 (WBC 4.9, PLT 276) Iron 23, Ferritin 968, NL B12 and folate in 04-18: ACD LDH 370 in 04-18 Arleen colored urine with a TBR in serum of 1.88 in 04-18 CT abd/pelvis 04-18: liver/kidney cysts, splenomegaly and 2 small (5 mm), non- calc nodules at L lung base-repeat 6 mo SPEP negative in 04-18 HBsAg neg, Hep A positive, JUAN MIGUEL negative, HIV western blot negative in 04-18 Lumbago 10/14/2005 10/27/2016 Unspecified essential hypertension 02/25/2012 Overview: ED 01-10-09 for CP: ECG with no ischema, CT neg for PE, D-dimer 676 (admit for stress test)-seen by Jerome Moe 01-11-09: 88% APMHR, 10 METS reported transient ischemia that resolved rapidly-rec for repeat stress in 6 mo Creat 1.1 in 01-17, 1 in 07-19 (Mg 2.3) Plan to schedule stress echo at f/u in 05-19 and refer to cardiology (see note from Lisa) Restarted his Lisinopril 10 mg and HCTZ 25 mg in 06-19 Echo stress 06-19: EF from 55% to 75% with stress, no RWMA at 10 METS and 91% APMHR documented as of this encounter (statuses as of 02/17/2023) [facility] History of Past illness Narrative* Problem Noted Date Resolved Date Actinic Keratoses (Premalignant AK's) 08/27/2013 10/27/2016 Seborrheic Keratoses 08/27/2013 03/12/2015 Solar lentigo 08/27/2013 03/12/2015 Xerosis cutis 08/27/2013 03/12/2015 Actinic skin damage 08/27/2013 03/12/2015 Scars 08/27/2013 03/12/2015 Other acne 08/27/2013 03/12/2015 Epidermal cyst 08/27/2013 03/12/2015 Irritated//Inflamed Seborrheic Keratosis 012 03/12/2015 Postinflammatory skin changes 09/13/2012 Other seborrheic dermatitis 09/13/2012 06/0 11/2014 Folliculitis 07/14/2012 04/14/2013 Pyoderma, 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) 07/14/2012 04/14/2013 Actinic Damage//Sun-Damaged Skin 07/14/2012 10/27/2016 Solar Lentigines 07/14/2012 04/14/2013 Leg cramps 06/29/2011 02/25/2012 Epidermal cyst 09/28/2010 02/25/2012 Actinic Keratoses (Premalignant AK's) 09/20/2009 02/25/2012 Seborrheic Keratosis 09/20/2009 02/25/2012 Actinic Damage//Sun-Damaged Skin 09/20/2009 02/25/2012 Solar Lentigines 09/20/2009 02/25/2012 Xerosis cutis 09/20/2009 02/25/2012 Abnormal cardiovascular stress test 08/12/2009 10/27/2016 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 Nonspecific abnormal results of liver function s tudy 05/07/2009 04/14/2013 Overview: ALT 36 in 05-19 Abn findings-lung field 05/03/2009 04/14/20 13 Overview: CT 04-18 showed incidental finding of two, 5 mm, non-calc lung nodules at L base ############ (needs repeat in 6 mo) ########### Anemia, unspecified 05/01/2009 10/27/2016 Overview: Hct 34.9% in 04-18, 37.7% in 05-19 (WBC 4.9, PLT 276) Iron 23, Ferritin 968, NL B12 and folate in 04-18: ACD LDH 370 in 04-18 Arleen colored urine with a TBR in serum of 1.88 in 04-18 CT abd/pelvis 04-18: liver/kidney cysts, splenomegaly and 2 small (5 mm), non- calc nodules at L lung base-repeat 6 mo SPEP negative in 04-18 HBsAg neg, Hep A positive, JUAN MIGUEL negative, HIV western blot negative in 04-18 Lumbago 10/14/2005 10/27/2016 Unspecified essential hypertension 02/25/2012 Overview: ED 01-10-09 for CP: ECG with no ischema, CT neg for PE, D-dimer 676 (admit for stress test)-seen by Jerome Stress 01-11-09: 88% APMHR, 10 METS reported transient ischemia that resolved rapidly-rec for repeat stress in 6 mo Creat 1.1 in 01-17, 1 in 07-19 (Mg 2.3) Plan to schedule stress echo at f/u in 05-19 and refer to cardiology (see note from Lisa) Restarted his Lisinopril 10 mg and HCTZ 25 mg in 06-19 Echo stress 06-19: EF from 55% to 75% with stress, no RWMA at 10 METS and 91% APMHR documented as of this encounter (statuses as of 03/24/2023) [facility] History of Past illness Narrative* Problem Noted Date Diagnosed Date Resolved Date Actinic Keratoses (Premalignant AK's) 08/27/2013 10/27/2016 Seborrheic Keratoses 08/27/2013 015 Solar lentigo 08/27/2013 03/12/2015 Xerosis cutis 08/27/2013 03/12/2015 Actinic skin damage 08/27/2013 03/12/20 15 Scars 08/27/2013 03/12/2015 Other acne 08/27/2013 03/12/2015 Epidermal cyst 08/27/2013 03/12/2015 Irritated//Inflamed Seborrheic Keratosis 09/13/2012 03/12/2015 Postinflammatory skin changes 09/13/2012 04/14/2013 Other seborrheic dermatitis 09/13/2012 03/12/2015 Folliculitis 07/14/2012 04/14/2013 Pyoderma, 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) 07/14/2012 04/14/2013 Actinic Damage//Sun-Damaged Skin 07/14/2012 10/27/2016 Solar Lentigines 07/14/2012 04/14/2013 Leg cramps 06/29/2011 02/25/2012 Epidermal cyst 09/28/2010 02/25/2012 Actinic Keratoses (Premalignant AK's) 09/20/2009 02/25/2012 Seborrheic Keratosis 09/20/2009 012 Actinic Damage//Sun-Damaged Skin 09/20/2009 02/25/2012 Solar Lentigines 09/20/2009 02/25/2012 Xerosis cutis 09/20/2009 02/25/2012 Abnormal cardiovascular stress test 08/12/2009 10/27/2016 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 Nonspecific abnormal results of liver function study 05/07/2009 04/14/2013 Overview: ALT 36 in 05-19 Abn findings-lung field 05/03/200902/2013 Overview: CT 04-18 showed incidental finding of two, 5 mm, non-calc lung nodules at L base ############ (needs repeat in 6 mo) ########### Anemia, unspecified 05/01/2009 10/27/19 Overview: Hct 34.9% in 04-18, 37.7% in 05-19 (WBC 4.9, PLT 276) Iron 23, Ferritin 968, NL B12 and folate in 04-18: ACD LDH 370 in 04-18 Arleen colored urine with a TBR in serum of 1.88 in 04-18 CT abd/pelvis 04-18: liver/kidney cysts, splenomegaly and 2 small (5 mm), non- calc nodules at L lung base-repeat 6 mo SPEP negative in 04-18 HBsAg neg, Hep A positive, JUAN MIGUEL negative, HIV western blot negative in 04-18 Lumbago 10/14/2005 10/27/2016 Unspecified essential hypertension 02/25/2012 Overview: ED 01-10-09 for CP: ECG with no ischema, CT neg for PE, D-dimer 676 (admit for stress test)-seen by Jerome Moe 01-11-09: 88% APMHR, 10 METS reported transient ischemia that resolved rapidly-rec for repeat stress in 6 mo Creat 1.1 in 01-17, 1 in 07-19 (Mg 2.3) Plan to schedule stress echo at f/u in 05-19 and refer to cardiology (see note from Lisa) Restarted his Lisinopril 10 mg and HCTZ 25 mg in 06-19 Echo stress 06-19: EF from 55% to 75% with stress, no RWMA at 10 METS and 91% APMHR documented as of this encounter (statuses as of 06/08/2023) [facility] History of Past illness Narrative* Problem Noted Date Diagnosed Date Resolved Date Actinic Keratoses (Premalignant AK's) 08/27/2013 10/27/2016 Seborrheic Keratoses 08/27/2013 015 Solar lentigo 08/27/2013 03/12/2015 Xerosis cutis 08/27/2013 03/12/2015 Actinic skin damage 08/27/2013 03/12/20 15 Scars 08/27/2013 03/12/2015 Other acne 08/27/2013 03/12/2015 Epidermal cyst 08/27/2013 03/12/2015 Irritated//Inflamed Seborrheic Keratosis 09/13/2012 03/12/2015 Postinflammatory skin changes 09/13/2012 04/14/2013 Other seborrheic dermatitis 09/13/2012 03/12/2015 Folliculitis 07/14/2012 04/14/2013 Pyoderma, 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) 07/14/2012 04/14/2013 Actinic Damage//Sun-Damaged Skin 07/14/2012 10/27/2016 Solar Lentigines 07/14/2012 04/14/2013 Leg cramps 06/29/2011 02/25/2012 Epidermal cyst 09/28/2010 02/25/2012 Actinic Keratoses (Premalignant AK's) 09/20/2009 02/25/2012 Seborrheic Keratosis 09/20/2009 012 Actinic Damage//Sun-Damaged Skin 09/20/2009 02/25/2012 Solar Lentigines 09/20/2009 02/25/2012 Xerosis cutis 09/20/2009 02/25/2012 Abnormal cardiovascular stress test 08/12/2009 10/27/2016 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 Nonspecific abnormal results of liver function study 05/07/2009 04/14/2013 Overview: ALT 36 in 05-19 Abn findings-lung field 05/03/200902/2013 Overview: CT 04-18 showed incidental finding of two, 5 mm, non-calc lung nodules at L base ############ (needs repeat in 6 mo) ########### Anemia, unspecified 05/01/2009 10/27/19 Overview: Hct 34.9% in 04-18, 37.7% in 05-19 (WBC 4.9, PLT 276) Iron 23, Ferritin 968, NL B12 and folate in 04-18: ACD LDH 370 in 04-18 Arleen colored urine with a TBR in serum of 1.88 in 04-18 CT abd/pelvis 04-18: liver/kidney cysts, splenomegaly and 2 small (5 mm), non- calc nodules at L lung base-repeat 6 mo SPEP negative in 04-18 HBsAg neg, Hep A positive, JUAN MIGUEL negative, HIV western blot negative in 04-18 Lumbago 10/14/2005 10/27/2016 Unspecified essential hypertension 02/25/2012 Overview: ED 01-10-09 for CP: ECG with no ischema, CT neg for PE, D-dimer 676 (admit for stress test)-seen by Jerome Moe 01-11-09: 88% APMHR, 10 METS reported transient ischemia that resolved rapidly-rec for repeat stress in 6 mo Creat 1.1 in 01-17, 1 in 07-19 (Mg 2.3) Plan to schedule stress echo at f/u in 05-19 and refer to cardiology (see note from Lisa) Restarted his Lisinopril 10 mg and HCTZ 25 mg in 06-19 Echo stress 06-19: EF from 55% to 75% with stress, no RWMA at 10 METS and 91% APMHR documented as of this encounter (statuses as of 06/30/2023) [facility] History of Past illness Narrative* Problem Noted Date Diagnosed Date Resolved Date Actinic Keratoses (Premalignant AK's) 08/27/2013 10/27/2016 Seborrheic Keratoses 08/27/2013 015 Solar lentigo 08/27/2013 03/12/2015 Xerosis cutis 08/27/2013 03/12/2015 Actinic skin damage 08/27/2013 03/12/20 15 Scars 08/27/2013 03/12/2015 Other acne 08/27/2013 03/12/2015 Epidermal cyst 08/27/2013 03/12/2015 Irritated//Inflamed Seborrheic Keratosis 09/13/2012 03/12/2015 Postinflammatory skin changes 09/13/2012 04/14/2013 Other seborrheic dermatitis 09/13/2012 03/12/2015 Folliculitis 07/14/2012 04/14/2013 Pyoderma, 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) 07/14/2012 04/14/2013 Actinic Damage//Sun-Damaged Skin 07/14/2012 10/27/2016 Solar Lentigines 07/14/2012 04/14/2013 Leg cramps 06/29/2011 02/25/2012 Epidermal cyst 09/28/2010 02/25/2012 Actinic Keratoses (Premalignant AK's) 09/20/2009 02/25/2012 Seborrheic Keratosis 09/20/2009 012 Actinic Damage//Sun-Damaged Skin 09/20/2009 02/25/2012 Solar Lentigines 09/20/2009 02/25/2012 Xerosis cutis 09/20/2009 02/25/2012 Abnormal cardiovascular stress test 08/12/2009 10/27/2016 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 Nonspecific abnormal results of liver function study 05/07/2009 04/14/2013 Overview: ALT 36 in 05-19 Abn findings-lung field 05/03/2009 07/0 02/2013 Overview: CT 04-18 showed incidental finding of two, 5 mm, non-calc lung nodules at L base ############ (needs repeat in 6 mo) ########### Anemia, unspecified 05/01/2009 10/27/19 17 Overview: Hct 34.9% in 04-18, 37.7% in 05-19 (WBC 4.9, PLT 276) Iron 23, Ferritin 968, NL B12 and folate in 04-18: ACD LDH 370 in 04-18 Arleen colored urine with a TBR in serum of 1.88 in 04-18 CT abd/pelvis 04-18: liver/kidney cysts, splenomegaly and 2 small (5 mm), non- calc nodules at L lung base-repeat 6 mo SPEP negative in 04-18 HBsAg neg, Hep A positive, JUAN MIGUEL negative, HIV western blot negative in 04-18 Lumbago 10/14/2005 10/27/2016 Unspecified essential hypertension 02/25/2012 Overview: ED 01-10-09 for CP: ECG with no ischema, CT neg for PE, D-dimer 676 (admit for stress test)-seen by Jerome Moe 01-11-09: 88% APMHR, 10 METS reported transient ischemia that resolved rapidly-rec for repeat stress in 6 mo Creat 1.1 in 01-17, 1 in 07-19 (Mg 2.3) Plan to schedule stress echo at f/u in 05-19 and refer to cardiology (see note from Lisa) Restarted his Lisinopril 10 mg and HCTZ 25 mg in 06-19 Echo stress 06-19: EF from 55% to 75% with stress, no RWMA at 10 METS and 91% APMHR documented as of this encounter (statuses as of 08/19/2023) [facility] History of Past illness Narrative* Problem Noted Date Diagnosed Date Resolved Date Actinic Keratoses (Premalignant AK's) 08/27/2013 10/27/2016 Seborrheic Keratoses 08/27/2013 015 Solar lentigo 08/27/2013 03/12/2015 Xerosis cutis 08/27/2013 03/12/2015 Actinic skin damage 08/27/2013 03/12/20 15 Scars 08/27/2013 03/12/2015 Other acne 08/27/2013 03/12/2015 Epidermal cyst 08/27/2013 03/12/2015 Irritated//Inflamed Seborrheic Keratosis 09/13/2012 03/12/2015 Postinflammatory skin changes 09/13/2012 04/14/2013 Other seborrheic dermatitis 09/13/2012 03/12/2015 Folliculitis 07/14/2012 04/14/2013 Pyoderma, 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) 07/14/2012 04/14/2013 Actinic Damage//Sun-Damaged Skin 07/14/2012 10/27/2016 Solar Lentigines 07/14/2012 04/14/2013 Leg cramps 06/29/2011 02/25/2012 Epidermal cyst 09/28/2010 02/25/2012 Actinic Keratoses (Premalignant AK's) 09/20/2009 02/25/2012 Seborrheic Keratosis 09/20/2009 012 Actinic Damage//Sun-Damaged Skin 09/20/2009 02/25/2012 Solar Lentigines 09/20/2009 02/25/2012 Xerosis cutis 09/20/2009 02/25/2012 Abnormal cardiovascular stress test 08/12/2009 10/27/2016 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 Nonspecific abnormal results of liver function study 05/07/2009 04/14/2013 Overview: ALT 36 in 8-09 Abn findings-lung field 05/03/2009 07/02/2013 Overview: CT 04-18 showed incidental finding of two, 5 mm, non-calc lung nodules at L base ############ (needs repeat in 6 mo) ########### Anemia, unspecified 05/01/2009 10/27/19 17 Overview: Hct 34.9% in 04-18, 37.7% in 05-19 (WBC 4.9, PLT 276) Iron 23, Ferritin 968, NL B12 and folate in 04-18: ACD LDH 370 in 04-18 Arleen colored urine with a TBR in serum of 1.88 in 04-18 CT abd/pelvis 04-18: liver/kidney cysts, splenomegaly and 2 small (5 mm), non- calc nodules at L lung base-repeat 6 mo SPEP negative in 04-18 HBsAg neg, Hep A positive, JUAN MIGUEL negative, HIV western blot negative in 04-18 Lumbago 10/14/2005 10/27/2016 Unspecified essential hypertension 02/25/2012 Overview: ED 01-10-09 for CP: ECG with no ischema, CT neg for PE, D-dimer 676 (admit for stress test)-seen by Jerome Moe 01-11-09: 88% APMHR, 10 METS reported transient ischemia that resolved rapidly-rec for repeat stress in 6 mo Creat 1.1 in 01-17, 1 in 07-19 (Mg 2.3) Plan to schedule stress echo at f/u in 05-19 and refer to cardiology (see note from Lisa) Restarted his Lisinopril 10 mg and HCTZ 25 mg in 06-19 Echo stress 06-19: EF from 55% to 75% with stress, no RWMA at 10 METS and 91% APMHR documented as of this encounter (statuses as of 08/20/2023) [facility] History of Past illness Narrative* Problem Noted Date Diagnosed Date Resolved Date Actinic Keratoses (Premalignant AK's) 08/27/2013 10/27/2016 Seborrheic Keratoses 08/27/2013 015 Solar lentigo 08/27/2013 03/12/2015 Xerosis cutis 08/27/2013 03/12/2015 Actinic skin damage 08/27/2013 03/12/20 15 Scars 08/27/2013 03/12/2015 Other acne 08/27/2013 03/12/2015 Epidermal cyst 08/27/2013 03/12/2015 Irritated//Inflamed Seborrheic Keratosis 09/13/2012 03/12/2015 Postinflammatory skin changes 09/13/2012 04/14/2013 Other seborrheic dermatitis 09/13/2012 03/12/2015 Folliculitis 07/14/2012 04/14/2013 Pyoderma, 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) 07/14/2012 04/14/2013 Actinic Damage//Sun-Damaged Skin 07/14/2012 10/27/2016 Solar Lentigines 07/14/2012 04/14/2013 Leg cramps 06/29/2011 02/25/2012 Epidermal cyst 09/28/2010 02/25/2012 Actinic Keratoses (Premalignant AK's) 09/20/2009 02/25/2012 Seborrheic Keratosis 09/20/2009 012 Actinic Damage//Sun-Damaged Skin 09/20/2009 02/25/2012 Solar Lentigines 09/20/2009 02/25/2012 Xerosis cutis 09/20/2009 02/25/2012 Abnormal cardiovascular stress test 08/12/2009 10/27/2016 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 Nonspecific abnormal results of liver function study 05/07/2009 04/14/2013 Overview: ALT 36 in 05-19 Abn findings-lung field 05/03/2009/02/2013 Overview: CT 04-18 showed incidental finding of two, 5 mm, non-calc lung nodules at L base ############ (needs repeat in 6 mo) ########### Anemia, unspecified 05/01/2009 10/27/19 17 Overview: Hct 34.9% in 04-18, 37.7% in 05-19 (WBC 4.9, PLT 276) Iron 23, Ferritin 968, NL B12 and folate in 04-18: ACD LDH 370 in 04-18 Arleen colored urine with a TBR in serum of 1.88 in 04-18 CT abd/pelvis 04-18: liver/kidney cysts, splenomegaly and 2 small (5 mm), non- calc nodules at L lung base-repeat 6 mo SPEP negative in 04-18 HBsAg neg, Hep A positive, JUAN MIGUEL negative, HIV western blot negative in 04-18 Lumbago 10/14/2005 10/27/2016 Unspecified essential hypertension 02/25/2012 Overview: ED 01-10-09 for CP: ECG with no ischema, CT neg for PE, D-dimer 676 (admit for stress test)-seen by Jerome Moe 01-11-09: 88% APMHR, 10 METS reported transient ischemia that resolved rapidly-rec for repeat stress in 6 mo Creat 1.1 in 01-17, 1 in 07-19 (Mg 2.3) Plan to schedule stress echo at f/u in 05-19 and refer to cardiology (see note from Lisa) Restarted his Lisinopril 10 mg and HCTZ 25 mg in 06-19 Echo stress 06-19: EF from 55% to 75% with stress, no RWMA at 10 METS and 91% APMHR documented as of this encounter (statuses as of 08/30/2023) [facility] History of Past illness Narrative* Problem Noted Date Diagnosed Date Resolved Date Actinic Keratoses (Premalignant AK's) 08/27/2013 10/27/2016 Seborrheic Keratoses 08/27/2013 015 Solar lentigo 08/27/2013 03/12/2015 Xerosis cutis 08/27/2013 03/12/2015 Actinic skin damage 08/27/2013 03/12/20 15 Scars 08/27/2013 03/12/2015 Other acne 08/27/2013 03/12/2015 Epidermal cyst 08/27/2013 03/12/2015 Irritated//Inflamed Seborrheic Keratosis 09/13/2012 03/12/2015 Postinflammatory skin changes 09/13/2012 04/14/2013 Other seborrheic dermatitis 09/13/2012 03/12/2015 Folliculitis 07/14/2012 04/14/2013 Pyoderma, 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) 07/14/2012 04/14/2013 Actinic Damage//Sun-Damaged Skin 07/14/2012 10/27/2016 Solar Lentigines 07/14/2012 04/14/2013 Leg cramps 06/29/2011 02/25/2012 Epidermal cyst 09/28/2010 02/25/2012 Actinic Keratoses (Premalignant AK's) 09/20/2009 02/25/2012 Seborrheic Keratosis 09/20/2009 012 Actinic Damage//Sun-Damaged Skin 09/20/2009 02/25/2012 Solar Lentigines 09/20/2009 02/25/2012 Xerosis cutis 09/20/2009 02/25/2012 Abnormal cardiovascular stress test 08/12/2009 10/27/2016 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 Nonspecific abnormal results of liver function study 05/07/2009 04/14/2013 Overview: ALT 36 in 05-19 Abn findings-lung field 05/03/2009 07/0 02/2013 Overview: CT 04-18 showed incidental finding of two, 5 mm, non-calc lung nodules at L base ############ (needs repeat in 6 mo) ########### Anemia, unspecified 05/01/2009 10/27/19 17 Overview: Hct 34.9% in 04-18, 37.7% in 05-19 (WBC 4.9, PLT 276) Iron 23, Ferritin 968, NL B12 and folate in 04-18: ACD LDH 370 in 04-18 Arleen colored urine with a TBR in serum of 1.88 in 04-18 CT abd/pelvis 04-18: liver/kidney cysts, splenomegaly and 2 small (5 mm), non- calc nodules at L lung base-repeat 6 mo SPEP negative in 04-18 HBsAg neg, Hep A positive, JUAN MIGUEL negative, HIV western blot negative in 04-18 Lumbago 10/14/2005 10/27/2016 Unspecified essential hypertension 02/25/2012 Overview: ED 01-10-09 for CP: ECG with no ischema, CT neg for PE, D-dimer 676 (admit for stress test)-seen by Jerome Moe 01-11-09: 88% APMHR, 10 METS reported transient ischemia that resolved rapidly-rec for repeat stress in 6 mo Creat 1.1 in 01-17, 1 in 07-19 (Mg 2.3) Plan to schedule stress echo at f/u in 05-19 and refer to cardiology (see note from Lisa) Restarted his Lisinopril 10 mg and HCTZ 25 mg in 06-19 Echo stress 06-19: EF from 55% to 75% with stress, no RWMA at 10 METS and 91% APMHR documented as of this encounter (statuses as of 09/17/2023) [facility] Diagnosis Essential hypertension, benign Type 2 diabetes mellitus without complication, without long-term current use of insulin (HCC) [facility] Diagnosis Type 2 diabetes mellitus without complication, without long-term current use of insulin (HCC) [facility]* Diagnosis Nausea- Primary Nausea alone Essential hypertension, benign Type 2 diabetes mellitus without complication, without long-term current use of insulin (HCC) History of CVA (cerebrovascular accident) Transient ischemic attack (TIA), and cerebral infarction without residual deficits Depression, unspecified depression type [facility]* Diagnosis Cerebrovascular accident (CVA), unspecified mechanism (HCC)- Primary Pure hypercholesterolemia Essential hypertension, benign Type 2 diabetes mellitus without complication, without long-term current use of insulin (HCC) 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) Need for COVID-19 vaccine [facility] Diagnosis Status post laparoscopic cholecystectomy- Primary Other postprocedural status [facility] Diagnosis Essential hypertension, benign- Primary Type 2 diabetes mellitus without complication, without long-term current use of insulin (HCC) 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) Depression, unspecified depression type [facility] Diagnosis Type 2 diabetes mellitus without complication, without long-term current use of insulin (HCC)- Primary Essential hypertension, benign Hyperlipidemia, unspecified hyperlipidemia type 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) Cerebrovascular accident (CVA), unspecified mechanism (HCC) Atrial fibrillation, unspecified type (HCC) ED (erectile dysfunction) of organic origin Impotence of organic origin Fatigue, unspecified type GERD without esophagitis Esophageal reflux [facility] Diagnosis Cough, unspecified type- Primary Chest congestion Other symptoms involving respiratory system and chest Sinus congestion Other diseases of nasal cavity and sinuses documented [facility] Diagnosis Type 2 diabetes mellitus without complication, without long-term current use of insulin (HCC)- Primary Essential hypertension, benign Pure hypercholesterolemia History of CVA (cerebrovascular accident) Transient ischemic attack (TIA), and cerebral infarction without residual deficits 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) [facility] Diagnosis GERD without esophagitis Esophageal reflux [facility] Diagnosis 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) Fatigue, unspecified type [facility] Diagnosis 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)- Primary [facility] Diagnosis Type 2 diabetes mellitus without complication, without long-term current use of insulin (HCC) [facility] Diagnosis Type 2 diabetes mellitus without complication, without long-term current use of insulin (HCC)- Primary Pure hypercholesterolemia Essential hypertension, benign History of CVA (cerebrovascular accident) Transient ischemic attack (TIA), and cerebral infarction without residual deficits [facility] Diagnosis URI with cough and congestion- Primary [facility] Diagnosis 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) documented in this encounter [facility] Summary Purpose Family History No Family History Records FoundNo Family History Records Found Advance Directives Documents on File Type Date Recorded Patient Manager Pool Expl anation Advance Directive(s) 04/19/2009 8:56 PM Advance Directive(s) 11/26/2006 12:00 AM Documents on File Type Date Recorded Patient Manager Pool Expl anation Advance Directive(s) 04/19/2009 8:56 PM Advance Directive(s) 11/26/2006 Health Concerns Infection Onset Date Last Indicated Resolved Time COVID-19 Rule-Out 08/19/2023 08/19/2023 Infection Onset Date Last Indicated Resolved Time COVID-19 Rule-Out 08/19/2023 08/19/2023 08/20/2023 1:28 AM EST Additional Source Comments (unrecognized sect ion and content) No Status Records FoundNo Status Records Found INFORMATION SOURCE (unrecogn ized section and content) DATE CREATED AUTHOR AUTHOR'S ORGANIZ ATION 08/21/2023 [facility] Source Comments (unrecognize d section and content) In the event this informatio n is protected by the Federal Confidentiality of Alcohol and Drug Abuse Patient Records regulations: The Federal rules restrict any use of the information to criminally investigate or prosecute any alcohol or drug abuse patient.[facility] the event this information is protected by the Federal Confidentiality of Alcohol and Drug Abuse Patient Records regulations: The Federal rules restrict any use of the information to criminally investigate or prosecute any alcohol or drug abuse patient.[facility] the event this information is protected by the Federal Confidentiality of Alcohol and Drug Abuse Patient Records regulations: The Federal rules restrict any use of the information to criminally investigate or prosecute any alcohol or drug abuse patient.[facility] the event this information is protected by the Federal Confidentiality of Alcohol and Drug Abuse Patient Records regulations: The Federal rules restrict any use of the information to criminally investigate or prosecute any alcohol or drug abuse patient.[facility] the event this information is protected by the Federal Confidentiality of Alcohol and Drug Abuse Patient Records regulations: The Federal rules restrict any use of the information to criminally investigate or prosecute any alcohol or drug abuse patient.[facility] the event this information is protected by the Federal Confidentiality of Alcohol and Drug Abuse Patient Records regulations: The Federal rules restrict any use of the information to criminally investigate or prosecute any alcohol or drug abuse patient.[facility] the event this information is protected by the Federal Confidentiality of Alcohol and Drug Abuse Patient Records regulations: The Federal rules restrict any use of the information to criminally investigate or prosecute any alcohol or drug abuse patient.[facility] the event this information is protected by the Federal Confidentiality of Alcohol and Drug Abuse Patient Records regulations: The Federal rules restrict any use of the information to criminally investigate or prosecute any alcohol or drug abuse patient.[facility] the event this information is protected by the Federal Confidentiality of Alcohol and Drug Abuse Patient Records regulations: The Federal rules restrict any use of the information to criminally investigate or prosecute any alcohol or drug abuse patient.[facility] the event this information is protected by the Federal Confidentiality of Alcohol and Drug Abuse Patient Records regulations: The Federal rules restrict any use of the information to criminally investigate or prosecute any alcohol or drug abuse patient.[facility] the event this information is protected by the Federal Confidentiality of Alcohol and Drug Abuse Patient Records regulations: The Federal rules restrict any use of the information to criminally investigate or prosecute any alcohol or drug abuse patient.[facility] the event this information is protected by the Federal Confidentiality of Alcohol and Drug Abuse Patient Records regulations: The Federal rules restrict any use of the information to criminally investigate or prosecute any alcohol or drug abuse patient.[facility] the event this information is protected by the Federal Confidentiality of Alcohol and Drug Abuse Patient Records regulations: The Federal rules restrict any use of the information to criminally investigate or prosecute any alcohol or drug abuse patient.[facility] the event this information is protected by the Federal Confidentiality of Alcohol and Drug Abuse Patient Records regulations: The Federal rules restrict any use of the information to criminally investigate or prosecute any alcohol or drug abuse patient.[facility] the event this information is protected by the Federal Confidentiality of Alcohol and Drug Abuse Patient Records regulations: The Federal rules restrict any use of the information to criminally investigate or prosecute any alcohol or drug abuse patient.[facility] the event this information is protected by the Federal Confidentiality of Alcohol and Drug Abuse Patient Records regulations: The Federal rules restrict any use of the information to criminally investigate or prosecute any alcohol or drug abuse patient.[facility] the event this information is protected by the Federal Confidentiality of Alcohol and Drug Abuse Patient Records regulations: The Federal rules restrict any use of the information to criminally investigate or prosecute any alcohol or drug abuse patient.[facility] the event this information is protected by the Federal Confidentiality of Alcohol and Drug Abuse Patient Records regulations: The Federal rules restrict any use of the information to criminally investigate or prosecute any alcohol or drug abuse patient.[facility] the event this information is protected by the Federal Confidentiality of Alcohol and Drug Abuse Patient Records regulations: The Federal rules restrict any use of the information to criminally investigate or prosecute any alcohol or drug abuse patient.[facility] the event this information is protected by the Federal Confidentiality of Alcohol and Drug Abuse Patient Records regulations: The Federal rules restrict any use of the information to criminally investigate or prosecute any alcohol or drug abuse patient.[facility] the event this information is protected by the Federal Confidentiality of Alcohol and Drug Abuse Patient Records regulations: The Federal rules restrict any use of the information to criminally investigate or prosecute any alcohol or drug abuse patient.[facility] the event this information is protected by the Federal Confidentiality of Alcohol and Drug Abuse Patient Records regulations: The Federal rules restrict any use of the information to criminally investigate or prosecute any alcohol or drug abuse patient.[facility] the event this information is protected by the Federal Confidentiality of Alcohol and Drug Abuse Patient Records regulations: The Federal rules restrict any use of the information to criminally investigate or prosecute any alcohol or drug abuse patient.[facility] Reason for Visit (unrecogniz ed section and content) Reason Comments Refill Request Reason Comments Nausea Reason Comments Nausea X 1 week Reason Comments F/U 3 Month Reason Comments Follow Up gallbladder surgery Reason Comments Hospital F/U Reason Comments Patient Update Appointment Reason Comments Results Reason Comments Cough Reason Onset Date Comments Refill Request 12/28/2022 Reason Comments Patient Update Reason Onset Date Comments Refill Request 02/03/2023 Reason Comments Medication Problem Reason Onset Date Comments Refill Request 06/07/2023 Reason Comments 6 Month Exam Reason Comments Cough Head congestion, hea dache, drainage down throat, x 2 days Reason Onset Date Comments Refill Request 08/30/2023 Reason Onset Date Comments Refill Request 09/16/2023 Care Teams (unrecognized sec tion and content) Ic Engineer Relationship Specialty Start Date End Date Emilia Reeves MD [address] [place] [address] PCP - General Family Practice 02/25/12 Ic Engineer Relationship Specialty Start Date End Date Emilia Reeves MD [address] [place] [address] PCP - General Family Practice 02/25/12 Ic Engineer Relationship Specialty Start Date End Date Emilia Reeves MD [address] [place] [place] [address] PCP - General Family Practice 02/25/12 Ic Engineer Relationship Specialty Start Date End Date Emilia Reeves MD [address] [place] [address] PCP - General Family Practice 02/25/12 Ic Engineer Relationship Specialty Start Date End Date Emilia Reeves MD [address] [place] [address] PCP - General Family Practice 02/25/12 Ic Engineer Relationship Specialty Start Date End Date Emilia Reeves MD [address] [place] [address] PCP - General Family Practice 02/25/12 Ic Engineer Relationship Specialty Start Date End Date Emilia Reeves MD [address] [place] [address] PCP - General Family Practice 02/25/12 Ic Engineer Relationship Specialty Start Date End Date Emilia Reeves MD [address] [place] [address] PCP - General Family Medicine 02/25/12 Ic Engineer Relationship Specialty Start Date End Date Emilia Reeves MD [address] [facility] [place] [address] PCP - General Family Medicine 02/25/12 Ic Engineer Relationship Specialty Start Date End Date Emilia Reeves MD [address] [facility] [address] PCP - General Family Medicine 02/25/12 Ic Engineer Relationship Specialty Start Date End Date Emilia Reeves MD [address] [place] [place] [address] PCP - General Family Medicine 02/25/12 Ic Engineer Relationship Specialty Start Date End Date Emilia Reeves MD [address] [place] [address] PCP - General Family Medicine 02/25/12 Ic Engineer Relationship Specialty Start Date End Date Emilia Reeves MD [address] [place] [address] PCP - General Family Medicine 02/25/12 Ic Engineer Relationship Specialty Start Date End Date Emilia Reeves MD [address] [place] [address] PCP - General Family Medicine 02/25/12 Ic Engineer Relationship Specialty Start Date End Date Emilia Reeves MD [address] [place] [address] PCP - General Family Medicine 02/25/12 Ic Engineer Relationship Specialty Start Date End Date Emilia Reeves MD [address] [place] [address] PCP - General Family Medicine 02/25/12 Ic Engineer Relationship Specialty Start Date End Date Emilia Reeves MD [address] [place] [address] PCP - General Family Medicine 02/25/12 FOR RECORDS PERTAINING TO PATIENTS WHO ARE OR HAVE BEEN ENROLLED IN A CHEMICAL DEPENDENCY/SUBSTANCEABUSE PROGRAM, SOME INFORMATION MAY BE OMITTED. This clinical summary was aggregated from multiple sources. Caution should be exercised in using it in the provision of clinical care. This summary normalizes information from multiple sources, and as a consequence, information in this document may materially change the coding, format and clinical context of patient data. In addition, data may be omitted in some cases. CLINICAL DECISIONS SHOULD BE BASED ON THE PRIMARY CLINICAL RECORDS. [facility] [employer] [facility]. provides no warranty or guarantee of the accuracy or completeness of information in this document.
[2023-11-01 16:29] LABS: CREATININE FINGERSTICK 1.3 mg/dL (0.70-1.30)
== END | disposition home or self-care (01) ==
LOC: CT 14:51
PROVIDERS: PCP Family Medicine; Referring Provider Student in an Organized Health Care Education/Training Program; Visit Provider Student in an Organized Health Care Education/Training Program
DX: C41.3 Malignant neoplasm of ribs, sternum and clavicle (principal)
CPT/HCPCS: 71260; Q9967; A4216

== ENCOUNTER 2023-11-16 16:31 | Emergency (ER) | payer MEDICARE, SELFPAY ==
[2023-11-16 16:32] VITALS: BP 156/90; PULSE 87; RESP 20; TEMP 36.3; O2SAT 93
--- NOTE | 2023-11-16 18:50 | RAD_ITS ---
STUDY: X-RAY - UNILATERAL RIBS ( LEFT ) WITH CHEST REASON FOR EXAM: Male, 88 years old. Pain TECHNIQUE - RIBS: 4 view(s) of the ribs. TECHNIQUE - CHEST: Single frontal view of the chest. COMPARISON: None. FINDINGS - RIBS: There is left anterior ninth rib fracture. FINDINGS - CHEST: The lungs are clear and expanded. There is no demonstrated pleural abnormality. Normal size heart. There are calcified mediastinal lymph nodes. Normal visualized pulmonary arteries. There is atherosclerotic calcification of the aortic arch with tortuosity. Normal visualized thoracic spine. There is left anterior ninth rib fracture. There is no demonstrated abnormality of the visualized soft tissue structures of the upper abdomen. RAD/Ribs Uni Min 3V w/PA Chest IMPRESSION: RIBS: Left ninth rib fracture. No pneumothorax. CHEST: Left ninth rib fracture. No pneumothorax. Electronically Signed: Fabiano Mar MD at 20:29 EST ,
[2023-11-16] MEDS: Acetaminophen 500 MG Tablet 1000 MG PO (18:58)
[2023-11-16] MEDS: Lidocaine 5% Patch 1 PATCH TOPICAL (18:58)
--- OUTSIDE RECORDS SUMMARY | 2023-11-16 20:07 | XMS RPT_ITS | CCD ---
Author Name Unknown Address [address] [place] [address] Organization [facility] Care Team Providers Care Hotel Services Sales Representative Name Role Phone EMILIA REEVES Primary Care [...] (20 sources) Lactate Drug Allergy 6 Rash [facility] Work Phone: (7 sources) Penicillins; Translations: [PENICILLINS] Propensity to adverse reactions 5 [facility] Work Phone: (17 sources) Penicillins Propensity to adverse reactions 5 [facility] Work Phone: (1 source) OTHER; Translations: [OTHER] Propensity to adverse reactions (disorder) 6 [facility] Repository Medications Completed/Discontinued Medications Medication Drug Class(es) [...] 98.49 [degF] Katheryn Lora APRN.AIDA Work Phone: [facility] 08-19-2023 11:25-0500 Body weight 82.56 kg Katheryn Lora APRN.AIDA Work Phone: [facility] 08-19-2023 11:25-0500 Diastolic blood pressure 79 mm[Hg] Katheryn Lora APRN.AIDA Work Phone: [facility] 08-19-2023 11:25-0500 Heart rate 106 /min Katheryn Lora APRN.AIDA Work Phone: [facility] 08-19-2023 11:25-0500 Respiratory rate 18 /min Katheryn Lora APRN.AIDA Work Phone: [facility] 08-19-2023 11:25-0500 SaO2% (BldA) [Mass fraction] 94 % Katheryn Lora APRN.PAINT DIPPER Work Phone: [facility] 08-19-2023 11:25-0500 Systolic blood pressure 121 mm[Hg] Katheryn Lora APRN.PAINT DIPPER Work Phone: [facility] 06-29-2023 14:52-0400 Body weight 82.1 kg Emilia Reeves MD Work Phone: [facility] 06-29-2023 14:52-0400 Diastolic blood pressure 80 mm[Hg] Emilia Reeves MD Work Phone: [facility] 06-29-2023 14:52-0400 Heart rate 76 /min Emilia Reeves MD Work Phone: [facility] 06-29-2023 14:52-0400 Respiratory rate 16 /min Emilia Reeves MD Work Phone: [facility] 06-29-2023 14:52-0400 Systolic blood pressure 126 mm[Hg] Emilia Reeves MD Work Phone: [facility] 12-10-2022 14:02-0500 Body weight 78.25 kg Emilia Reeves MD Work Phone: [facility] 12-10-2022 14:02-0500 Diastolic blood pressure 78 mm[Hg] Emilia Reeves MD Work Phone: [facility] 12-10-2022 14:02-0500 Heart rate 74 /min Emilia Reeves MD Work Phone: [facility] 12-10-2022 14:02-0500 Respiratory rate 16 /min Emilia Reeves MD Work Phone: [facility] 12-10-2022 14:02-0500 Systolic blood pressure 120 mm[Hg] Emilia Reeves MD Work Phone: [facility] 11-09-2022 15:29-0500 Body temperature 98.1 [degF] Emilia Reeves MD Work Phone: [facility] 11-09-2022 15:29-0500 Body weight 77.56 kg Emilia Reeves MD Work Phone: [facility] 11-09-2022 15:29-0500 Diastolic blood pressure 64 mm[Hg] Emilia Reeves MD Work Phone: [facility] 11-09-2022 15:29-0500 Heart rate 102 /min Emilia Reeves MD Work Phone: [facility] 11-09-2022 15:29-0500 Respiratory rate 18 /min Emilia Reeves MD Work Phone: [facility] 11-09-2022 15:29-0500 SaO2% (BldA) [Mass fraction] 94 % Emilia Reeves MD Work Phone: [facility] 11-09-2022 15:29-0500 Systolic blood pressure 118 mm[Hg] Emilia Reeves MD Work Phone: [facility] 06-02-2022 09:06-0400 Body weight 80.02 kg Emilia Reeves MD Work Phone: [facility] 06-02-2022 09:06-0400 Diastolic blood pressure 72 mm[Hg] Emilia Reeves MD Work Phone: [facility] 06-02-2022 09:06-0400 Heart rate 88 /min Emilia Reeves MD Work Phone: [facility] 06-02-2022 09:06-0400 Respiratory rate 16 /min Emilia eReves MD Work Phone: [facility] 06-02-2022 09:06-0400 Systolic blood pressure 118 mm[Hg] Emilia Reeves MD Work Phone: [facility] 04-09-2022 14:57-0400 Body weight 77.11 kg Emilia Reeves MD Work Phone: [facility] 04-09-2022 14:57-0400 Diastolic blood pressure 64 mm[Hg] Emilia Reeves MD Work Phone: [facility] 04-09-2022 14:57-0400 Heart rate 78 /min Emilia Reeves MD Work Phone: [facility] 04-09-2022 14:57-0400 Respiratory rate 16 /min Emilia Reeves MD Work Phone: [facility] 04-09-2022 14:57-0400 Systolic blood pressure 108 mm[Hg] Emilia Reeves MD Work Phone: [facility] 04-03-2022 13:08-0400 Body height 172.7 cm Isabell Capone MD Work Phone: [facility] 04-03-2022 13:08-0400 Body temperature 98.2 [degF] Isabell Capone MD Work Phone: [facility] 04-03-2022 13:08-0400 Body weight 78.47 kg Isabell Capone MD Work Phone: [facility] 04-03-2022 13:08-0400 Diastolic blood pressure 58 mm[Hg] Isabell Capone MD Work Phone: [facility] 04-03-2022 13:08-0400 Heart rate 111 /min Isabell Capone MD Work Phone: [facility] 04-03-2022 13:08-0400 SaO2% (BldA) [Mass fraction] 94 % Isabell Capone MD Work Phone: [facility] 04-03-2022 13:08-0400 Systolic blood pressure 96 mm[Hg] Isabell Capone MD Work Phone: [facility] 02-26-2022 09:08-0400 Body weight 79.24 kg Emilia Reeves MD Work Phone: [facility] 02-26-2022 09:08-0400 Diastolic blood pressure 72 mm[Hg] Emilia Reeves MD Work Phone: [facility] 02-26-2022 09:08-0400 Heart rate 84 /min Emilia Reeves MD Work Phone: [facility] 02-26-2022 09:08-0400 Respiratory rate 16 /min Emilia Reeves MD Work Phone: [facility] 02-26-2022 09:08-0400 SaO2% (BldA) [Mass fraction] 95 % Emilia Reeves MD Work Phone: [facility] 02-26-2022 09:08-0400 Systolic blood pressure 124 mm[Hg] Emilia Reeves MD Work Phone: [facility] 01-23-2022 11:07-0400 Body temperature 98.01 [degF] Emilia Reeves MD Work Phone: [facility] 01-23-2022 11:07-0400 Body weight 77.11 kg Emilia Reeves MD Work Phone: [facility] 01-23-2022 11:07-0400 Diastolic blood pressure 66 mm[Hg] Emilia Reeves MD Work Phone: [facility] 01-23-2022 11:07-0400 Heart rate 74 /min Emilia Reeves MD Work Phone: [facility] 01-23-2022 11:07-0400 Respiratory rate 14 /min Emilia Reeves MD Work Phone: [facility] 01-23-2022 11:07-0400 Systolic blood pressure 128 mm[Hg] Emilia Reeves MD Work Phone: [facility] Encounters Encounter Date Encounter Type Care Provider Facility Start: 09-16-2023 Refill Emilia aguirre MD Work Phone: [facility] [place] Procedures Date Procedure Procedure Detail Performing Clinician Start: 02-26-2022 PFIZER-BIONTECH COVID-19 VACCINE, AGE 12+ YR (DIAZ TOP) Emilia Reeves MD Work Phone: History of cholecystectomy Status post laparoscopic cholecystectomy Isabell Capone MD Work Phone: Plan of Treatment Date Care Activity Detail Author Start: 01-15-2031 Urine microalbumin profile [facility] Start: 06-25-2024 Hepatitis B screening Urine Albumin:Creatinine Ratio [facility] Start: 06-25-2024 Hepatitis B surface antibody level LDL Cholesterol [facility] Start: 12-28-2023 End: 02-27-2024 CBC panel - Blood by Automated count CBC Lab Routine Essential hypertension, benign Expected: 12/28/2023 (Approximate), Expires: 02/27/2024 [facility] Work Phone: Immunizations Immunization Date Immunization Notes Care Provider Eric magallanes 07-19-2023 COVID-19 vaccine, ag e 12+ yr, season (PFIZER-BIONTECH) Katheryn Lora AUTOMOTIVE CENTER MANAGER.PAINT DIPPER Work Phone: [facility] 07-19-2023 influenza, high dose seasonal, preservative-free Katheryn Lora AUTOMOTIVE CENTER MANAGER.PAINT DIPPER Work Phone: [facility] 08-18-2022 COVID-19 booster vaccine, age 12+ yr, bivalent (PFIZER-BIONTECH) Raman Mike AUTOMOTIVE CENTER MANAGER.PAINT DIPPER Work Phone: [facility] 07-23-2022 influenza, high dose seasonal, preservative-free Raman Mike AUTOMOTIVE CENTER MANAGER.PAINT DIPPER Work Phone: [facility] 07-23-2022 influenza virus vacc ine, unspecified formulation Emilia Reeves MD Work Phone: [facility] 02-26-2022 COVID-19 vaccine, ag e 12+ yr (PFIZER-BIONTECH - DIAZ TOP) Emilia Reeves MD Work Phone: [facility] 07-03-2021 influenza, high-dose , quadrivalent vaccine (FLUZONE HIGH DOSE QUADRIVALENT) Emilia Reeves MD Work Phone: [facility] 01-15-2021 tetanus toxoid, redu fabian diphtheria toxoid, and acellular pertussis vaccine, adsorbed Emilia Reeves MD Work Phone: [facility] 12-05-2020 COVID-19 vaccine, fu ll dose (MODERNA) Emilia Reeves MD Work Phone: [facility] Work Phone: 11-07-2020 COVID-19 vaccine, fu ll dose (MODERNA) Emilia Reeves MD Work Phone: [facility] Work Phone: 07-03-2020 influenza, high dose seasonal, preservative-free Emilia Reeves MD Work Phone: [facility] 09-12-2019 zoster vaccine recombinant Emilia Reeves MD Work Phone: [facility] 07-14-2019 influenza, high dose seasonal, preservative-free Emilia Reeves MD Work Phone: [facility] 07-08-2019 zoster vaccine recombinant Emilia Reeves MD Work Phone: [facility] 12-29-2017 pneumococcal polysaccharide vaccine, 23 valent Emilia Reeves MD Work Phone: [facility] 02-27-2017 pneumococcal conjuga te vaccine, 13 valent Emilia Reeves MD Work Phone: [facility] 10-05-2016 tetanus toxoid, redu fabian diphtheria toxoid, and acellular pertussis vaccine, adsorbed Emilia Reeves MD Work Phone: [facility] Work Phone: 09-11-2015 pneumococcal conjuga te vaccine, 13 valent Emilia Reeves MD Work Phone: [facility] 08-05-2015 influenza, seasonal, injectable Emilia Reeves MD Work Phone: [facility] 01-17-2014 tetanus and diphther ia toxoids, adsorbed, preservative free, for adult use (5 Lf of tetanus toxoid and 2 Lf of diphtheria toxoid) Emilia Reeves MD Work Phone: [facility] Work Phone: 07-04-2009 influenza virus vacc ine, unspecified formulation Emilia Reeves MD Work Phone: [facility] Work Phone: 06-23-2009 zoster vaccine, live Emilia baer MD Work Phone: [facility] Work Phone: 08-16-2008 influenza virus vacc ine, unspecified formulation Emilia Reeves MD Work Phone: [facility] Work Phone: 08-02-2007 influenza virus vacc ine, unspecified formulation Emilia Reeves MD Work Phone: [facility] Work Phone: 08-16-2006 influenza virus vacc ine, unspecified formulation Emilia Reeves MD Work Phone: [facility] 07-11-2004 influenza virus vacc ine, unspecified formulation Emilia Reeves MD Work Phone: [facility] Work Phone: 10-12-2000 pneumococcal polysaccharide vaccine, 23 valent Emilia Reeves MD Work Phone: [facility] Work Phone: 04-03-1999 diphtheria and tetan us toxoids, adsorbed for pediatric use Emilia Reeves MD Work Phone: [facility] Work Phone: Payers Date Payer Category Payer Medicare AETNA MEDICARE A ETNA MEDICARE PPO [id number] 2021-Present [phone] [address] [place] [address] PPO [id number] 2021 Medicare AETNA MEDICARE A ETNA MEDICARE PPO [id number] 2021-Present [phone] [address] [place] [address] PPO [id number] 2021 Medicare [id number] 2020 Medicare [id number] 1935 Unknown [id number] 1935 Unknown [id number] Social History Date Type Detail Facility Start: 11-24-2017 End: 08-18-2022 Tobacco smoking status NHIS Ex-smoker [facility] End: 10-11-1969 History of tobacco use Current smoker [facility] End: [birth year]11[birth year]1969 History of tobacco use Cigarette Smoker [facility] Start: 11-20-2021 End: 08-19-2023 Alcohol intake Current drinker of alcohol (finding) [facility] Start: 1935 Sex Assigned At Not on file C [facility] Start: 10-29-2021 End: 11-28-2021 Exposure to SARS-CoV-2 (event) Unable to assess [facility] Start: 01-13-2022 End: 06-02-2022 Exposure to SARS-CoV-2 (event) Not sure [facility] Start: 04-17-2022 End: 04-27-2022 Exposure to SARS-CoV-2 (event) Yes [facility] Start: 11-24-2017 End: 06-29-2023 Cigarettes smoked current (pack per day) - Reported 2 [facility] Start: 11-24-2017 End: 08-18-2022 Tobacco use and exposure Smokeless tobacco non-user [facility] Start: 02-08-2023 End: 06-29-2023 Tobacco use panel [facility] Adult Depression Scr eening Assessment 0 [facility] Clinical Notes 08-27-2013 to 09-16-2023 Telephone Encounter [...] patient. Petra Aldridge documented in this encounter [facility] 08-30-2023 Miscellaneous Notes The following approved medication [...] patient. Shelby Xavier documented in this encounter [facility] 08-20-2023 Miscellaneous Notes Patient notified.Olga Gimenez LPN Please notify of negative rsv, flu, and covid test. Continue comfort measures for symptoms as you would for a cold. Any worsening symptoms follow up with PCP or ER. Katheryn Lora APRN.CNP documented in this encounter [facility] 08-19-2023 Note HNO ID: [id number] Author: Katheryn Lora APRN.CNP Service: ? Author Type: Nurse Practitioner Type: Progress Notes Filed: 08/19/2023 11:45 AM Note Text: Subjective The history is provided by the patient. No pct was used. DAVID Mcdermott is a 87 [...] have confirmed and edited as necessary, the [facility] Review of Systems Constitutional: Positive for [...] in 12-24 hours with results, available on [employer] - COVID AND INFLUENZA A/B AND RSV NAAT, ROUTINE Diagnosis and treatment plan were discussed and questions were answered to the patient's satisfaction. Pt acknowledged understanding of concepts and follow up plan. Specific signs and symptoms that would indicate the need for higher level of care were discussed in detail warranting prompt ER evaluation. Katheryn Lora APRN.AIDA [facility] 08-19-2023 Instructions Katheryn Lora APRN.[facility] - 08/19/2023 11:42 AM EST Covid, rsv, and influenza test ordered You will be notified in 12-24 hours, results available on [employer] Home isolation until results are back Rest, [...] inability to swallow. documented in this encounter [facility] 08-19-2023 History of Present illness Narrative Subjective The history is provided by the patient. No pct was used. HPI Edilberto Mcdermott is a [...] have confirmed and edited as necessary, the [facility] Review of Systems Constitutional: Positive for [...] detail warranting prompt ER evaluation. Katheryn Lora APRN.PAINT DIPPER documented in this encounter [facility] 06-29-2023 Note HNO ID: [id number] Author: Emilia Reeves MD Service: ? Author [...] BID. Pt followed with Dr. Rick at [facility] due to a mass on his chest. [...] an appt with Radiation Oncology tomorrow at [facility] to discuss. Past medical history, appointments, medications, [...] clear to ausc (more content not included)... [facility] 06-29-2023 History of Present illness Narrative Chief Complaint Follow up HPI Edilberto Mcdermott is a 87 year old male who presents here today for 6 month follow up. Went on river cruise in [place], going on [employer] cruise next month. No bowel, Gi, or [...] BID. Pt followed with Dr. Rick at [facility] due to a mass on his chest. [...] an appt with Radiation Oncology tomorrow at [facility] to discuss. Past medical history, appointments, medications, [...] Emilia Reeves MD documented in this encounter [facility] 06-07-2023 Miscellaneous Notes Pt notified and voiced [...] pharmacy. Cherelle Sahu documented in this encounter [facility] 03-24-2023 Miscellaneous Notes The following approved medication [...] spouse and advise documented in this encounter [facility] 02-08-2023 Note HNO ID: [id number] Author: Emilia Reeves MD Service: ? Author Type: Physician Type: Progress Notes Filed: 02/08/2023 6:40 PM Note Text: Chief Complaint Patient presents with: Hospital F/U: HPI Edilberto Mcdermott is a 87 year old male who presents here today for ER Follow Up.. Pt presented to [facility] ER on 01/29/23 for fall. Here today [...] been completed. Still will go to the [facility] to walk. Lives in Assisted Living. Does [...] - Pt followed with Dr. Rick at [facility] due to a mass on his chest. 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 Plan is due to pt age and co-morbidities he was not a radical extensive surgical resection. Refer to radiation oncology consultation. Refer to palliative medicine for tumor type pain. They currently have an appt with Radiation Oncology tomorrow at [facility] to discuss. Will be going to hospital for [employer] support groups that their daughter told them about Below copied from [facility] [employer]: Chief Complaint: Fall Narrative Narrative: 87-year-old male [...] 04-18 HBsAg neg, (more content not included)... [facility] 02-04-2023 Miscellaneous Notes notified. Radha Mackay LPN [...] his back. He was seen at the [facility] ER. Patti would like to know what Mark can do for the pain. I do have him scheduled for an appointment February 08 for a follow up. Also, Patti said the cancer doctor at [facility] also detected a sarcoma on Mark's chest. She described as a slow tumor. She wanted Dr. Reeves to be aware. documented in this encounter [facility] 02-03-2023 Miscellaneous Notes The following approved medication requests have been transmitted electronically. Requested Prescriptions Pending Prescriptions Disp Refills FLUoxetine (PROZAC) 40 mg capsule 30 capsule 5 Sig: Take 1 capsule by mouth once daily. Faustino Chakraborty APRN.PAINT DIPPER Pharmacy verified in [facility] Patient has been identified by name and [...] Maci Robison Pss documented in this encounter [facility] 12-28-2022 Miscellaneous Notes The following approved medication [...] Nolvia Virgen Pss documented in this encounter [facility] 12-10-2022 Note HNO ID: [id number] Author: Emilia Reeves MD Service: ? Author [...] or urinary issues. Has seen Urologist at [facility] Dr. Cee. Taking Avodart 0.5 mg daily and Uroxatral 10 mg daily. Uses Viagra prn ED. CVA/Lipid: Tries to watch diet and exercise with walking at the [employer]. His friend will take him or their [...] to visit. Social (more content not included)... [facility] 12-10-2022 History of Present illness Narrative Chief Complaint Patient presents with: F/U 3 Month HPI Edilberto Mcdermott is a 87 year old male who presents here today for 3 month follow up. Pt no showed appt 11/17/22. Here with his . Has an advanced directive. Cough has improved. No bowel, Gi, or urinary issues. Has seen Urologist at [facility] Dr. Cee. Taking Avodart 0.5 mg daily [...] Past Histories independently gathered by the clinical support dba and the remaining scribed note accurately describes [...] Carolyn Romero Ma documented in this encounter [facility] 11-09-2022 Note HNO ID: [id number] Author: Emilia Reeves MD Service: ? Author [...] couple weeks ago before they left for [place] to see family. Thought he caught this from his neighbor at [facility]. Pt has nasal drainage that ranges from Clear-yellow to green phlegm from his nose. He does cough up clear colored sputum. Does get sob with activity, has to take breaks. No fever, but he feels warm inside. Pt has taken OTC Mucinex, Sosa-[place], Robitussin and Tylenol with no real improvement. [...] on 08/14/2023 DTAP,TDAP,TD (more content not included)... [facility] 11-09-2022 History of Present illness Narrative Chief [...] couple weeks ago before they left for [place] to see family. Thought he caught this from his neighbor at [facility]. Pt has nasal drainage that ranges from Clear-yellow to green phlegm from his nose. He does cough up clear colored sputum. Does get sob with activity, has to take breaks. No fever, but he feels warm inside. Pt has taken OTC Mucinex, Sosa-[place], Robitussin and Tylenol with no real improvement. [...] Past Histories independently gathered by the clinical support dba and the remaining scribed note accurately describes [...] Serina Garcia Ma documented in this encounter [facility] 11-09-2022 Miscellaneous Notes OK to refill as ordered Emilia Reeves MD documented in this encounter [facility] 06-02-2022 History of Present illness Narrative Chief [...] neuropathy symptoms. Has routine eye exams at [facility]. On current regimen of Metformin 500 mg [...] walker. Does have an exercise room at [facility], but its not like the [employer]. On current regimen of Lipitor 80 mg [...] Past Histories independently gathered by the clinical support dba and the remaining scribed note accurately describes [...] Reeves MD. June 02, 2022 9:27 AM. Serina Garcia Ma documented in this encounter [facility] 04-28-2022 Miscellaneous Notes Pt notified. Please notify patient that his blood work looks good; his blood count is normal. His fatigue is most likely due to having had Covid, and should improve with time Emilia Reeves MD documented in this encounter [facility] 04-27-2022 Miscellaneous Notes Noted Emilia Reeves MD Pts called in reports they had been on a trip to [facility]. Pt had tested positive for Covid a [...] at 300 pm. documented in this encounter [facility] 04-09-2022 History of Present illness Narrative Chief [...] which included preparing to see the patient, [id number] patient care, completing clinical documentation, obtaining and/or reviewing separately obtained history, performing a medically appropriate examination and counseling and educating the patient/family/caregiver. Emilia Reeves MD documented in this encounter [facility] 04-03-2022 History of Present illness Narrative FOLLOW UP VISIT NAME: Edilberto [facility] NO.: [id number] DATE OF SERVICE: 04/03/2022 : 1935 REFERRING PHYSICIAN: Emilia Reeves MD Edilberto is status post laparoscopic cholecystectomy done for acute cholecystitis presentation at [facility]. It was done on 03/24/2022. Pathology from [facility] - chronic cholecystitis and cholelithiasis) Patient denies [...] Isabell Capone MD documented in this encounter [facility] 02-26-2022 Nurse Note Falls Risk Intake: 1. [...] and Maintaining Balance documented in this encounter [facility] 02-26-2022 History of Present illness Narrative Chief Complaint Patient presents with: F/U 3 Month HPI Edilberto Mcdermott is a 86 year old male who presents here today for 3 month follow up. Here with . Both living in [facility]. Going to be going on a river cruise to [place], taking their kids and grand kids, in April. Has an advanced directive. Denies any bowel, Gi, or urinary issues. Is on both Uroxatral 10 mg daily and Avodart 0.5 mg daily. Follow[address] with Dr. Cee, Urologist at [facility]. Uses Viagra as needed for ED but [...] no neuropathy sx. Gets eye exams at [facility]. HTN: Denies checking BP at home, no chest pains, dizziness, or SOB. Follows with Sensor Technician, Dr. Mojica. Currently on Lisinopril 40 mg [...] Carolyn Romero Ma documented in this encounter [facility] 01-23-2022 History of Present illness Narrative Chief [...] Emilia Reeves MD documented in this encounter [facility] 01-23-2022 Miscellaneous Notes Noted Emilia Reeves MD [...] Pt does not know cause. Protocols used: [id number] documented in this encounter [facility] 01-15-2022 Miscellaneous Notes OK to refill as [...] Carmen Benítez LPN documented in this encounter [facility] 12-02-2021 Miscellaneous Notes OK to refill as [...] Nolvia Virgen Pss documented in this encounter [facility] documented as of this encounter (statuses as of 01/06/2022) [facility]11-17-2013 History of Past illness Narrative* Problem Noted [...] 04/14/2013 Overview: April 2009 -- diagnosed at [facility] [place]; felt contracted on trip to [facility]. Nonspecific abnormal results of liver function s [...] of this encounter (statuses as of 01/15/2022) [facility] History of Past illness Narrative* Problem Noted [...] 04/14/2013 Overview: April 2009 -- diagnosed at [facility] [place]; felt contracted on trip to [facility] Nonspecific abnormal results of liver function s [...] of this encounter (statuses as of 01/23/2022) [facility] History of Past illness Narrative* Problem Noted [...] 04/14/2013 Overview: April 2009 -- diagnosed at [facility] [place]; felt contracted on trip to [facility]. Nonspecific abnormal results of liver function s [...] of this encounter (statuses as of 01/23/2022) [facility] History of Past illness Narrative* Problem Noted [...] 04/14/2013 Overview: April 2009 -- diagnosed at [facility] [place]; felt contracted on trip to [facility] Nonspecific abnormal results of liver function s [...] of this encounter (statuses as of 02/26/2022) [facility] History of Past illness Narrative* Problem Noted [...] 04/14/2013 Overview: April 2009 -- diagnosed at [facility] [place]; felt contracted on trip to [facility]. Nonspecific abnormal results of liver function s [...] of this encounter (statuses as of 04/03/2022) [facility] History of Past illness Narrative* Problem Noted [...] 04/14/2013 Overview: April 2009 -- diagnosed at [facility] [place]; felt contracted on trip to [facility]. Nonspecific abnormal results of liver function s [...] of this encounter (statuses as of 04/09/2022) [facility] History of Past illness Narrative* Problem Noted [...] 04/14/2013 Overview: April 2009 -- diagnosed at [facility] [place]; felt contracted on trip to [facility] Nonspecific abnormal results of liver function s [...] of this encounter (statuses as of 04/27/2022) [facility] History of Past illness Narrative* Problem Noted [...] 04/14/2013 Overview: April 2009 -- diagnosed at [facility] [place]; felt contracted on trip to [facility] Nonspecific abnormal results of liver function s [...] of this encounter (statuses as of 04/28/2022) [facility] History of Past illness Narrative* Problem Noted [...] 04/14/2013 Overview: April 2009 -- diagnosed at [facility] [place]; felt contracted on trip to [facility]. Nonspecific abnormal results of liver function s [...] of this encounter (statuses as of 06/02/2022) [facility] History of Past illness Narrative* Problem Noted [...] 04/14/2013 Overview: April 2009 -- diagnosed at [facility] [place]; felt contracted on trip to [facility]. Nonspecific abnormal results of liver function s [...] of this encounter (statuses as of 11/09/2022) [facility] History of Past illness Narrative* Problem Noted [...] 04/14/2013 Overview: April 2009 -- diagnosed at [facility] [place]; felt contracted on trip to [facility] Nonspecific abnormal results of liver function s [...] of this encounter (statuses as of 11/10/2022) [facility] History of Past illness Narrative* Problem Noted [...] 04/14/2013 Overview: April 2009 -- diagnosed at [facility] [place]; felt contracted on trip to [facility]. Nonspecific abnormal results of liver function s [...] of this encounter (statuses as of 12/10/2022) [facility] History of Past illness Narrative* Problem Noted [...] 04/14/2013 Overview: April 2009 -- diagnosed at [facility] [place]; felt contracted on trip to [facility] Nonspecific abnormal results of liver function s [...] of this encounter (statuses as of 12/28/2022) [facility] History of Past illness Narrative* Problem Noted [...] 04/14/2013 Overview: April 2009 -- diagnosed at [facility] [place]; felt contracted on trip to [facility]. Nonspecific abnormal results of liver function s [...] of this encounter (statuses as of 02/05/2023) [facility] History of Past illness Narrative* Problem Noted [...] 04/14/2013 Overview: April 2009 -- diagnosed at [facility] [place]; felt contracted on trip to [facility]. Nonspecific abnormal results of liver function s [...] of this encounter (statuses as of 02/17/2023) [facility] History of Past illness Narrative* Problem Noted [...] 04/14/2013 Overview: April 2009 -- diagnosed at [facility] [place]; felt contracted on trip to [facility]. Nonspecific abnormal results of liver function s [...] of this encounter (statuses as of 03/24/2023) [facility] History of Past illness Narrative* Problem Noted [...] 04/14/2013 Overview: April 2009 -- diagnosed at [facility] [place]; felt contracted on trip to [facility]. Nonspecific abnormal results of liver function study [...] of this encounter (statuses as of 06/08/2023) [facility] History of Past illness Narrative* Problem Noted [...] 04/14/2013 Overview: April 2009 -- diagnosed at [facility] [place]; felt contracted on trip to [facility]. Nonspecific abnormal results of liver function study [...] of this encounter (statuses as of 06/30/2023) [facility] History of Past illness Narrative* Problem Noted [...] 04/14/2013 Overview: April 2009 -- diagnosed at [facility] [place]; felt contracted on trip to [facility]. Nonspecific abnormal results of liver function study [...] of this encounter (statuses as of 08/19/2023) [facility] History of Past illness Narrative* Problem Noted [...] 04/14/2013 Overview: April 2009 -- diagnosed at [facility] [place]; felt contracted on trip to [facility] Nonspecific abnormal results of liver function study [...] of this encounter (statuses as of 08/20/2023) [facility] History of Past illness Narrative* Problem Noted [...] 04/14/2013 Overview: April 2009 -- diagnosed at [facility] [place]; felt contracted on trip to [facility]. Nonspecific abnormal results of liver function study [...] of this encounter (statuses as of 08/30/2023) [facility] History of Past illness Narrative* Problem Noted [...] 04/14/2013 Overview: April 2009 -- diagnosed at [facility] [place]; felt contracted on trip to [facility]. Nonspecific abnormal results of liver function study [...] of this encounter (statuses as of 09/17/2023) [facility] Diagnosis Essential hypertension, benign Type 2 diabetes mellitus without complication, without long-term current use of insulin (HCC) [facility] Diagnosis Type 2 diabetes mellitus without complication, without long-term current use of insulin (HCC) [facility] Diagnosis Nausea- Primary Nausea alone Essential hypertension, benign Type 2 diabetes mellitus without complication, without long-term current use of insulin (HCC) History of CVA (cerebrovascular accident) Transient ischemic attack (TIA), and cerebral infarction without residual deficits Depression, unspecified depression type [facility] Diagnosis Cerebrovascular accident (CVA), unspecified mechanism (HCC)- Primary Pure hypercholesterolemia Essential hypertension, benign Type 2 diabetes mellitus without complication, without long-term current use of insulin (HCC) 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) Need for COVID-19 vaccine [facility] Diagnosis Status post laparoscopic cholecystectomy- Primary Other postprocedural status [facility] Diagnosis Essential hypertension, benign- Primary Type 2 diabetes mellitus without complication, without long-term current use of insulin (HCC) 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) Depression, unspecified depression type [facility] Diagnosis Type 2 diabetes mellitus without [...] esophagitis Esophageal reflux [facility] Diagnosis Cough, unspecified type- Primary Chest congestion Other symptoms involving respiratory system and chest Sinus congestion Other diseases of nasal cavity and sinuses [facility] Diagnosis Type 2 diabetes mellitus without complication, without long-term current use of insulin (HCC)- Primary Essential hypertension, benign Pure hypercholesterolemia History of CVA (cerebrovascular accident) Transient ischemic attack (TIA), and cerebral infarction without residual deficits 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) [facility] Diagnosis GERD without esophagitis Esophageal reflux [facility] Diagnosis 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) Fatigue, unspecified type [facility] Diagnosis 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)- Primary [facility] Diagnosis Type 2 diabetes mellitus without complication, without long-term current use of insulin (HCC) [facility] Diagnosis Type 2 diabetes mellitus without complication, without long-term current use of insulin (HCC)- Primary Pure hypercholesterolemia Essential hypertension, benign History of CVA (cerebrovascular accident) Transient ischemic attack (TIA), and cerebral infarction without residual deficits [facility] Diagnosis URI with cough and congestion- Primary [facility] Diagnosis 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) documented in this encounter [facility] Summary Purpose Family History No Family History Records FoundNo Family History Records Found Advance Directives Documents on File Type Date Recorded 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 Advance Directive(s) 04/19/2009 8:56 PM Advance Directive(s) 11/26/2006 12:00 AM Documents on File Type Date 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 Advance Directive(s) 04/19/2009 8:56 PM [...] DATE CREATED AUTHOR AUTHOR'S ORGANIZ ATION 08/21/2023 [facility] Source Comments (unrecognize d section and content) In the event this informatio n is protected by the Federal Confidentiality of Alcohol and Drug Abuse Patient Records regulations: The Federal rules restrict any use of the information to criminally investigate or prosecute any alcohol or drug abuse patient.[facility] the event this information is protected by the Federal Confidentiality of Alcohol and Drug Abuse Patient Records regulations: The Federal rules restrict any use of the information to criminally investigate or prosecute any alcohol or drug abuse patient.[facility] the event this information is protected by the Federal Confidentiality of Alcohol and Drug Abuse Patient Records regulations: The Federal rules restrict any use of the information to criminally investigate or prosecute any alcohol or drug abuse patient.[facility] the event this information is protected by the Federal Confidentiality of Alcohol and Drug Abuse Patient Records regulations: The Federal rules restrict any use of the information to criminally investigate or prosecute any alcohol or drug abuse patient.[facility] the event this information is protected by the Federal Confidentiality of Alcohol and Drug Abuse Patient Records regulations: The Federal rules restrict any use of the information to criminally investigate or prosecute any alcohol or drug abuse patient.[facility] the event this information is protected by the Federal Confidentiality of Alcohol and Drug Abuse Patient Records regulations: The Federal rules restrict any use of the information to criminally investigate or prosecute any alcohol or drug abuse patient.[facility] the event this information is protected by the Federal Confidentiality of Alcohol and Drug Abuse Patient Records regulations: The Federal rules restrict any use of the information to criminally investigate or prosecute any alcohol or drug abuse patient.[facility] the event this information is protected by the Federal Confidentiality of Alcohol and Drug Abuse Patient Records regulations: The Federal rules restrict any use of the information to criminally investigate or prosecute any alcohol or drug abuse patient.[facility] the event this information is protected by the Federal Confidentiality of Alcohol and Drug Abuse Patient Records regulations: The Federal rules restrict any use of the information to criminally investigate or prosecute any alcohol or drug abuse patient.[facility] the event this information is protected by the Federal Confidentiality of Alcohol and Drug Abuse Patient Records regulations: The Federal rules restrict any use of the information to criminally investigate or prosecute any alcohol or drug abuse patient.[facility] the event this information is protected by the Federal Confidentiality of Alcohol and Drug Abuse Patient Records regulations: The Federal rules restrict any use of the information to criminally investigate or prosecute any alcohol or drug abuse patient.[facility] the event this information is protected by the Federal Confidentiality of Alcohol and Drug Abuse Patient Records regulations: The Federal rules restrict any use of the information to criminally investigate or prosecute any alcohol or drug abuse patient.[facility] the event this information is protected by the Federal Confidentiality of Alcohol and Drug Abuse Patient Records regulations: The Federal rules restrict any use of the information to criminally investigate or prosecute any alcohol or drug abuse patient.[facility] the event this information is protected by the Federal Confidentiality of Alcohol and Drug Abuse Patient Records regulations: The Federal rules restrict any use of the information to criminally investigate or prosecute any alcohol or drug abuse patient.[facility] the event this information is protected by the Federal Confidentiality of Alcohol and Drug Abuse Patient Records regulations: The Federal rules restrict any use of the information to criminally investigate or prosecute any alcohol or drug abuse patient.[facility] the event this information is protected by the Federal Confidentiality of Alcohol and Drug Abuse Patient Records regulations: The Federal rules restrict any use of the information to criminally investigate or prosecute any alcohol or drug abuse patient.[facility] the event this information is protected by the Federal Confidentiality of Alcohol and Drug Abuse Patient Records regulations: The Federal rules restrict any use of the information to criminally investigate or prosecute any alcohol or drug abuse patient.[facility] the event this information is protected by the Federal Confidentiality of Alcohol and Drug Abuse Patient Records regulations: The Federal rules restrict any use of the information to criminally investigate or prosecute any alcohol or drug abuse patient.[facility] the event this information is protected by the Federal Confidentiality of Alcohol and Drug Abuse Patient Records regulations: The Federal rules restrict any use of the information to criminally investigate or prosecute any alcohol or drug abuse patient.[facility] the event this information is protected by the Federal Confidentiality of Alcohol and Drug Abuse Patient Records regulations: The Federal rules restrict any use of the information to criminally investigate or prosecute any alcohol or drug abuse patient.[facility] the event this information is protected by the Federal Confidentiality of Alcohol and Drug Abuse Patient Records regulations: The Federal rules restrict any use of the information to criminally investigate or prosecute any alcohol or drug abuse patient.[facility] the event this information is protected by the Federal Confidentiality of Alcohol and Drug Abuse Patient Records regulations: The Federal rules restrict any use of the information to criminally investigate or prosecute any alcohol or drug abuse patient.[facility] the event this information is protected by the Federal Confidentiality of Alcohol and Drug Abuse Patient Records regulations: The Federal rules restrict any use of the information to criminally investigate or prosecute any alcohol or drug abuse patient.[facility] Reason for Visit (unrecogniz ed section and [...] Care Teams (unrecognized sec tion and content) Hotel Services Sales Representative Relationship Specialty Start Date End Date Emilia Reeves MD [address] [place] [address] PCP - General Family Practice 02/25/12 Hotel Services Sales Representative Relationship Specialty Start Date End Date Emilia Reeves MD [address] [place] [address] PCP - General Family Practice 02/25/12 Hotel Services Sales Representative Relationship Specialty Start Date End Date Emilia Reeves MD [address] [place] [address] PCP - General Family Practice 02/25/12 Hotel Services Sales Representative Relationship Specialty Start Date End Date Emilia Reeves MD [address] [place] [address] PCP - General Family Practice 02/25/12 Hotel Services Sales Representative Relationship Specialty Start Date End Date Emilia Reeves MD [address] [place] [address] PCP - General Family Practice 02/25/12 Hotel Services Sales Representative Relationship Specialty Start Date End Date Emilia Reeves MD [address] [place] [address] PCP - General Family Practice 02/25/12 Hotel Services Sales Representative Relationship Specialty Start Date End Date Emilia Reeves MD [address] [place] [address] PCP - General Family Practice 02/25/12 Hotel Services Sales Representative Relationship Specialty Start Date End Date Emilia Reeves MD [address] [place] [address] PCP - General Family Medicine 02/25/12 Hotel Services Sales Representative Relationship Specialty Start Date End Date Emilia Reeves MD [address] [facility] [place] [address] PCP - General Family Medicine 02/25/12 Hotel Services Sales Representative Relationship Specialty Start Date End Date Emilia Reeves MD [address] [facility] [place] [address] PCP - General Family Medicine 02/25/12 Hotel Services Sales Representative Relationship Specialty Start Date End Date Emilia Reeves MD [address] [place] [address] PCP - General Family Medicine 02/25/12 Hotel Services Sales Representative Relationship Specialty Start Date End Date Emilia Reeves MD [address] [place] [address] PCP - General Family Medicine 02/25/12 Hotel Services Sales Representative Relationship Specialty Start Date End Date Emilia Reeves MD [address] [place] [address] PCP - General Family Medicine 02/25/12 Hotel Services Sales Representative Relationship Specialty Start Date End Date Emilia Reeves MD [address] [place] [address] PCP - General Family Medicine 02/25/12 Hotel Services Sales Representative Relationship Specialty Start Date End Date Emilia Reeves MD [address] [place] [address] PCP - General Family Medicine 02/25/12 Hotel Services Sales Representative Relationship Specialty Start Date End Date Emilia Reeves MD [address] [place] [address] PCP - General Family Medicine 02/25/12 Hotel Services Sales Representative Relationship Specialty Start Date End Date Emilia Reeves MD [address] [place] [address] PCP - General Family Medicine 02/25/12 FOR [...] BE BASED ON THE PRIMARY CLINICAL RECORDS. [facility] [facility]. provides no warranty or guarantee of the accuracy or completeness of information in this document.
--- NOTE | 2023-11-16 20:18 | ED.RN ---
X-RAY RESULTS PENDING FOR PATIENT FOR MORE THAN ONE HOUR. X-RAY CALLED FOR UPDATE. X-RAY STATED WE ARE WORKING ON IT RIGHT NOW PT INFORMED OF UPDATE.
[2023-11-16 20:50] VITALS: BP 152/89
--- NOTE | 2023-11-16 20:50 | ED.VIS.FALL ---
HPI HPI - Fall History of Present Illness Chief Complaint: Fall Narrative Narrative: 88-year-old male with left rib pain. Patient states he fell on his rollator earlier. Initially thought he hurt his left elbow and his left knee but he states he is not hurting anymore. He states he noted that his left ribs started hurting and now hurt worse in his elbow and his knee. Patient is ambulatory with his rollator. Did not hit his head or lose consciousness. He took nothing for pain prior to arrival. 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) Hypertension Left arm weakness Loss of peripheral visual field PAF (paroxysmal atrial fibrillation) Walker as ambulation aid Wears glasses Wears hearing aid Home Medications alfuzosin 10 mg tablet,extended release 24 hr 10 mg PO DAILY prostate 10/02/20 [History Last Taken 03/20/22] amlodipine 5 mg tablet 5 mg PO DAILY BP 03/15/21 [History Last Taken 03/20/22] atorvastatin 80 mg tablet 80 mg PO QHS 03/15/21 [History Last Taken 03/20/22] lisinopril 40 mg tablet 40 mg PO DAILY BP 03/15/21 [History Last Taken 03/20/22] cetirizine 10 mg capsule (Zyrtec) 10 mg PO DAILY PRN ALLERGIES 03/18/21 [History Last Taken 03/20/22] dutasteride 0.5 mg capsule 0.5 mg PO DAILY 03/18/21 [History Last Taken 03/20/22] multivitamin 1 tab PO DAILY 03/18/21 [History Last Taken 03/20/22] dulaglutide 1.5 mg/0.5 mL subcutaneous pen injector (Trulicity) 1.5 mg subcut QWEEK 11/17/22 [History Last Taken Unknown] fluoxetine 20 mg capsule 40 mg PO DAILY 11/17/22 [History Last Taken Unknown] glimepiride 2 mg tablet tablet PO 02/07/23 [History Last Taken Unknown] pantoprazole 40 mg tablet,delayed release 40 mg PO DAILY 11/17/22 [History Last Taken Unknown] apixaban 2.5 mg tablet (Eliquis) 2.5 mg PO BID Please reduce dose to 2.5 mg twice daily #60 tabs 05/18/23 [Rx Last Taken Unknown] ondansetron 4 mg disintegrating tablet mg translingual TID PRN 05/18/23 [History Last Taken Unknown] fluoxetine 40 mg capsule (Prozac) 40 mg PO DAILY 10/25/23 [History Last Taken Unknown] hydrocodone-acetaminophen 5-325mg 5mg-325mg 1 tab PO Q6H PRN PRN Pain 3 days #12 TABLETS 11/16/23 [Rx Last Taken Unknown] Allergy/AdvReac Type Severity Reaction Status Date / Time lactic acid [From Lac-Hydrin] Allergy Rash Verified 11/16/23 16:35 Penicillins Allergy Unknown Verified 11/16/23 16:35 Family History Sister Ovarian cancer Diabetes old age onset Mother Basal cell carcinoma Father CHF (congestive heart failure) Diabetes old age onset Grandfather Diabetes old age onset Surgical History H/O basal cell carcinoma excision History of shoulder surgery Status post laparoscopic cholecystectomy Social History household members: spouse current occupational exposures/hazards: No Smoking Status: Former smoker pack-years: 20 Tobacco: How many years used: 20 how long ago did patient quit smokin years ago; quit sometime in the alcohol intake: current alcohol intake frequency: holidays/special occasions only substance use type: does not use caffeine: Yes (Occasionally, drinks mostly caffeine free beverages) ROS ROS ED Constitutional Constitutional ED: Denies chills, fever(s) or sweats Eyes Eyes: Denies blurry vision or change in vision ENT ENT ED: Denies ear pain or sore throat Cardiovascular Cardiovascular: Denies chest pain, palpitations or racing heartbeat Respiratory/Chest Respiratory/Chest: Reports other Details: Left rib pain ; Denies cough, dyspnea or sputum Gastrointestinal Gastrointestinal: Denies abdominal pain, constipation, diarrhea, nausea or vomiting Genitourinary Genitourinary ED: Denies dysuria, hematuria or urinary frequency Musculoskeletal Musculoskeletal: Denies arthralgias, myalgias or neck pain Integumentary Denies abscess, Abrasions or rash Neurologic Neurologic: Denies headache(s), paresthesias or weakness Psychiatric Psychiatric: Denies anxiety, depression, suicidal ideation or suicidal thoughts Endocrine Endocrinology: Denies polydipsia or polyuria EXAM Physical Exam Const Vital Signs: 11/16/23 16:32 11/16/23 18:25 Temperature 97.4 F L Temperature Source Temporal Pulse Rate 87 Respiratory Rate 20 H Respiratory Effort Normal Respiratory Depth Normal Respiratory Pattern Normal Blood Pressure 156/90 H Blood Pressure Mean 112 Pulse Ox 93 Oxygen Delivery Method Room Air Room Air Positive well nourished General Appearance ED: NAD HEENT Reports normocephalic atraumatic Eyes PERRL and EOMs intact bilaterally Neck full ROM Chest Wall Chest Narrative: Tenderness to palpation over left ribs approximately ribs 8 and 9 in the anterior axillary line and mid axillary line. No bruising, crepitance. Equal symmetric breath sounds or chest wall rise. Resp normal respiratory effort Auscultation: Negative for rales, rhonchi or wheezes Cardio regular rate and regular rhythm GI non-tender Neuro oriented x3 and CN's II-XII intact bilaterally Psych mental status grossly normal MDM MDM MDM Narrative Medical decision making narrative: Patient presenting with left rib pain. States initially hurt his left elbow and left knee but these do not hurt him anymore. Is able to range them without any difficulty. He does not want these evaluated. Left ribs are tender to palpation. No bruising or crepitance. Equal symmetric breath sounds or chest wall rise. Patient was given a Lidoderm patch and Tylenol. Left rib series was obtained and shows ninth rib fracture on my interpretation. There is no pneumothorax or pneumonia. Radiology interprets and agrees. Patient will be given [place] for pain. Return precautions are discussed. Discharged in dose in his care. Impression: 1. Mechanical fall 2. Left ninth rib fracture Lab Data Attestation: I reviewed the patient's lab results. Radiography Diagnostic Testing: Clinical Impression(s) from Imaging Studies Ribs w/Chest X-Ray 11/16/23 18:50 IMPRESSION: RIBS: Left ninth rib fracture. No pneumothorax. CHEST: Left ninth rib fracture. No pneumothorax. Electronically Signed: Fabiano Mar MD at 20:29 EST , Discharge Plan Triage Chief Complaint: Fall ED Provider: Herson Acuña Dx/Rx/DC Orders Instructions: ED Rib Fracture, ED Fall Prevention Prescriptions: New hydrocodone-acetaminophen 5-325 mg tablet 1 tab PO Q6H PRN PRN (Reason: Pain) 3 Days Qty: 12 0RF No Action lisinopril 40 mg tablet 40 mg PO DAILY amlodipine 5 mg tablet 5 mg PO DAILY atorvastatin 80 mg tablet 80 mg PO QHS dutasteride 0.5 mg capsule 0.5 mg PO DAILY Patient Comments: take 1 capsule by mouth once daily multivitamin Tablet 1 tab PO DAILY Zyrtec 10 mg capsule 10 mg PO DAILY PRN (Reason: ALLERGIES) fluoxetine 20 mg capsule 40 mg PO DAILY Rx Instructions: Take with 40 mg cap to = 60 mg daily glimepiride 2 mg tablet PO Trulicity 1.5 mg/0.5 mL pen injector 1.5 mg subcut QWEEK pantoprazole 40 mg tablet,delayed release (DR/EC) 40 mg PO DAILY Eliquis 2.5 mg tablet 2.5 mg PO BID Qty: 60 11RF ondansetron 4 mg tablet,disintegrating translingual TID PRN Patient Comments: take 1 tablet by mouth every 6 hours if needed for nausea and vomiting fluoxetine [Prozac] 40 mg capsule 40 mg PO DAILY alfuzosin 10 MG tablet extended release 24 hr 10 mg PO DAILY Primary Care Provider: Amrik Jacob Referrals: Amrik Jacob MD [Primary Care Provider] - Disposition Disposition: Home, Self Care
[2023-11-16] MEDS: HYDROcodone Bitartrate/Apap 5/325 Tablet PO (21:00)
== END 2023-11-16 21:06 | disposition home or self-care (01) ==
PROVIDERS: Emergency Provider Student in an Organized Health Care Education/Training Program; PCP Family Medicine; Visit Provider Student in an Organized Health Care Education/Training Program
DX: S22.32XA Fracture of one rib, left side, initial encounter for closed fracture (principal); I48.0 Paroxysmal atrial fibrillation; W18.39XA Other fall on same level, initial encounter; I10 Essential (primary) hypertension; Z79.01 Long term (current) use of anticoagulants; Z79.899 Other long term (current) drug therapy; Z86.73 Personal history of transient ischemic attack (TIA), and cerebral infarction without residual deficits; Z87.891 Personal history of nicotine dependence
CPT/HCPCS: 71101; 99284

== ENCOUNTER → 2023-11-22 | Outpatient (CLI) | payer MEDICARE, SELFPAY ==
[2023-11-22 16:54] LABS: Absolute Lymphocyte Count 0.96 X10^3/uL (0.83-4.51); Absolute Neutrophil Count 6.5 X10^3/uL (2.0-7.7); Basophil# 0.06 X10^3/uL; Basophil% 0.7 % (0-1); Eosinophil# 0.08 X10^3/uL; Hemoglobin 14.3 g/dL (13.0-16.5); Lymphocyte # 0.96 X10^3/ul (0.83-4.51); Lymphocyte % 11.8 % (19-41); Mean Corp Hgb Conc 32.5 g/dL (32-36); Mean Corpuscular Hgb 29.6 pg (27.0-32.0); Mean Corpuscular Volume 91.1 fL (80-94); Monocyte% 6.1 % (0-10); NRBC Flagged by Analyzer 0 % (0-5); Neutrophil # 6.51 X10^3/uL (2.7-7.7); Neutrophil % 79.7 % (47-70); Platelet Count 268 K/mm3 (150-450); RBC Distribution Width CV 13.6 % (11.6-14.6); RBC Distribution Width SD 45.9 fl (35.1-43.9); Red Blood Count 4.83 M/mm3 (4.6-6.2); White Blood Count 8.2 K/mm3 (4.4-11.0)
[2023-11-22 17:17] LABS: BNP,B-Type NATRIURETIC PEPTIDE 16.7 pg/mL (0-100)
[2023-11-22 17:21] LABS: Anion Gap 8 (5-15); BUN 17 mg/dL (7-18); BUN/Creat Ratio 15.9 RATIO (10-20); Calcium,Total 8.9 mg/dL (8.5-10.1); Chloride 106 mmol/L (98-107); Creatinine, Serum 1.07 mg/dL (0.70-1.30); EST Glomerular Filtration Rate 69 mL/min (>60); Est Glom Filt Rate - Afr Amer 84 mL/min (>60); Glucose 297 mg/dL (74-106); Potassium 3.8 mmol/L (3.5-5.1); Sodium Level 137 mmol/L (136-145)
== END | disposition home or self-care (01) ==
LOC: LAB 16:17
PROVIDERS: PCP Family Medicine; Referring Provider Physician Assistant Medical; Visit Provider Physician Assistant Medical
DX: R06.09 Other forms of dyspnea (principal); Z86.73 Personal history of transient ischemic attack (TIA), and cerebral infarction without residual deficits
CPT/HCPCS: 36415; 80048; 83880; 85025

== ENCOUNTER 2024-03-06 23:29 | Emergency (ER) | payer MEDICARE, SELFPAY ==
[2024-03-06 23:30] VITALS: BP 150/77; PULSE 82; RESP 16; TEMP 36.3; O2SAT 92; BMI 25.9
--- NOTE | 2024-03-06 23:41 | CT_ITS ---
STUDY: CT CERVICAL SPINE WITHOUT CONTRAST REASON FOR EXAM: Male, 88 years old patient with injury to posterior head. RADIATION DOSAGE (If Supplied By Facility): CTDIvol = ( 22.45 ) mGy, DLP = ( 483.54 ) mGycm TECHNIQUE: High resolution transaxial imaging was performed without contrast material. Sagittal and coronal images were reconstructed. Individualized dose optimization techniques were used for this CT. COMPARISON: Prior comparison studies are not available for review at this time. FINDINGS: Normal craniovertebral junction. There are degenerative changes of the anterior atlantoaxial articulation. Normal odontoid process. There is straightening of the normal cervical lordosis. Normal vertebral bodies and posterior osseous elements. C2-3: Normal endplates. Normal disc height and morphology. Normal central canal. There is moderate narrowing of the left intervertebral neuroforamen with moderate degenerative arthropathy of the left-sided uncovertebral and facet joints. C3-4: Normal endplates. Normal disc height and morphology. Normal central canal. There is severe right-sided neuroforaminal narrowing with hypertrophic facet joint hypertrophy. There is moderately severe left-sided neuroforaminal narrowing by hypertrophic facet joint hypertrophy. C4-5: There is narrowing of disc space with endplate osteophytes. There is severe right-sided neural foraminal narrowing with hypertrophic right-sided facet joint arthropathy. There is moderate left-sided neural foraminal narrowing with bilateral uncovertebral and facet arthropathy. There is mild central acquired canal stenosis. C5-6: There is narrowing of the disc space and small endplate osteophytes. There is severe right-sided foraminal narrowing of moderate left-sided neural foraminal narrowing with bilateral uncovertebral and right-sided facet joint arthropathy. C6-7: There is narrowing of the disc space is small plate osteophytes. There is severe right-sided neural foraminal narrowing with hypertrophic uncovertebral joint hypertrophy. There is moderate left-sided neural foraminal narrowing. There is mild central acquired canal stenosis. C7-T1: Normal endplates. Normal disc height and morphology. Normal central canal and intervertebral neuroforamina. Small volume of epidural gas is visible at this level probably secondary to vacuum disk phenomenon. Lung apices appear to be clear. Paraspinal soft tissues are within normal limits in appearance. CT/Spine Cervical without Contras IMPRESSION: 1. No CT evidence of acute compression or displaced fracture. 2. Moderately severe multilevel degenerative changes of the cervical spine with neural foraminal narrowing and acquired central canal stenosis, as described. Electronically Signed: Eliana Hernandez MD at 0:44 EDT ,
--- NOTE | 2024-03-06 23:41 | CT_ITS ---
STUDY: CT BRAIN WITHOUT CONTRAST REASON FOR EXAM: Male, 88 years old patient with closed head injury of the posterior head. RADIATION DOSAGE (If Supplied By Facility): CTDIvol = ( 44.99 ) mGy, DLP = ( 880.47 ) mGycm TECHNIQUE: Transaxial CT imaging of the brain was performed without administration of intravenous contrast material. Multiplanar reformations are submitted for interpretation. Individualized dose optimization techniques were used for this CT. COMPARISON: No relevant priors. FINDINGS: Normal soft tissue structures. Normal calvarium. There is moderate cerebral atrophy with widening of the extra-axial spaces and ventricular dilatation. There are areas of decreased attenuation within the white matter tracts of the supratentorial brain, consistent with microvascular disease changes. There is encephalomalacia visible within the right occipital lobe consistent with old infarct. There is encephalomalacia in the right thalamus consistent with old infarct. The left thalamus and the basal ganglia have a grossly normal appearance. Normal brainstem. There is mild cerebellar atrophy. There is no intracranial hemorrhage. There is mild atherosclerotic calcification of the intracranial arteries. Normal visualized paranasal sinuses. CT/Brain/Head without Contrast IMPRESSION: 1. Chronic involutional changes of the brain. 2. No CT evidence of acute intracranial hemorrhage. Electronically Signed: Eliana Hernandez MD at 0:23 EDT ,
--- NOTE | 2024-03-06 23:42 | EDS_ITS ---
HPI History of Present Illness Chief Complaint: Head Injury Informant: patient, spouse/S.O. 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 Patient is on Eliquis. He was in a wheelchair being taken through the [facility] when he arrived home from a trip. The person pushing a wheelchair lost control of the wheelchair and came backwards and the patient fell backwards on the wheelchair striking the back of his head. This occurred a couple hours ago. No LOC. Mild headache. They [place] at the airport. They offered to take him to local hospital. He and his went to get home and to be evaluated locally. Prior similar symptoms: No Recent Illness/Hospitalization: No PFSH PFSH Allergy/AdvReac Type Severity Reaction Status Date / Time Penicillins Allergy Intermediate Hives Verified 03/07/24 00:35 Social History Smoking Status: Former smoker ROS ROS ED ROS Narrative Mild headache. Mild neck pain. Status post fell while in a wheelchair striking the back of his head. No recent illness. Review of Systems ROS Unobtainable: Denies due to encephalopathy Constitutional Constitutional ED: Denies chills or fever(s) Eyes Eyes: Denies blurry vision ENT ENT ED: Denies ear pain Cardiovascular Cardiovascular: Denies chest pain Respiratory/Chest Respiratory/Chest: Denies cough or dyspnea Gastrointestinal Gastrointestinal: Denies abdominal pain Genitourinary Genitourinary ED: Denies dysuria or hematuria Musculoskeletal Musculoskeletal: Reports neck pain; Denies arthralgias, back pain or myalgias Integumentary Denies abscess or Abrasions Neurologic Neurologic: Reports headache(s); Denies paresthesias or weakness Psychiatric Psychiatric: Denies anxiety or depression Endocrine Endocrinology: Denies cold intolerance Hematologic/Lymphatic Hematologic/Lymphatic: Denies lymphadenopathy Allergic/Immunologic Allergic/Immunologic ED: Denies mouth swelling or tongue swelling EXAM Physical Exam Narrative Exam Narrative: Well-appearing 88-year-old male. Vital signs stable afebrile. H EENT exam pupils round reactive light. Normal speech. No facial trauma. Back of the scalp there is no significant hematoma. No laceration. No significant tenderness. Neck trachea midline. No lymphadenopathy. Mild tenderness to the back of his neck he said it feels stiff. There is no specific area. Chest wall nontender. Large soft tissue density which is a sarcoma right chest wall. Lungs clear. Heart regular rhythm rate about 80. Ribs nontender. Abdomen soft nontender. Pelvic girdle intact. Hips nontender. Back, thoracic lumbar spine nontender. Moves all 4 extremities. 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 Dorsi plantarflexion intact. Nontender the extremities. No deformity. Neurologically is awake and alert. Answering questions following commands. GCS of 15. Const Vital Signs: 03/06/24 23:30 03/06/24 23:34 Temperature 97.3 F L Temperature Source Temporal Pulse Rate 82 Respiratory Rate 16 Respiratory Effort Normal Respiratory Depth Normal Respiratory Pattern Normal Blood Pressure 150/77 H Blood Pressure Mean 101 Pulse Ox 92 Oxygen Delivery Method Room Air Positive well nourished and well developed; Negative for obese, cachectic, contractures or unkempt General Appearance ED: well developed and NAD; Negative for unkempt, cachectic or contractures Nutritional Appearance: Negative for cachectic or obese HEENT trauma; Negative for atraumatic or tenderness Eyes PERRL and EOMs intact bilaterally Neck full ROM General: Negative for tenderness or other Chest Wall palpation of chest normal; Negative for inspection of chest normal Chest Narrative: Large soft tissue density right chest wall which patient and tell me he has been diagnosed as a sarcoma. Resp normal respiratory effort and clear to auscultation bilaterally Effort and Inspection: Negative for pain with movement Auscultation: Negative for rales, rhonchi, wheezes or diminished lung sounds Cardio regular rhythm, S1 normal heart sound, S2 normal heart sound and no murmurs Jugular Venous Distention: Negative for other Palpation: Negative for palpable S3 or palpable S4 Rate: regular rate; Negative for bradycardia or tachycardic Rhythm: Negative for abnormal rhythm GI normal to inspection, nondistended, normoactive bowel sounds, non-tender, non- distended and no masses Inspection: Negative for abdominal distention Auscultation: normoactive bowel sounds Palpation: soft; Negative for tender, guarding or rebound tenderness present Bladder / Kidney Exam: No other Back/Spine no thoracic nor lumbar tenderness General Back: Negative for CVA tenderness Thoracic Spine / Upper Back: Negative for thoracic spinal tenderness Lumbar Spine / Lower Back: Negative for straight leg raise negative bilaterally Extremity normal to inspection and full ROM General Extremety ED: Negative for deformity, edema or tenderness General Extremity: Negative for deformity or edema Neuro oriented x3, CN's II-XII intact bilaterally and moves all extremities [place] Coma Scale: document GCS findings Spontaneous Obeys Commands Oriented 15 Sensorium / Orientation: alert, oriented to person, oriented to place and oriented to time; Negative for orientation impaired, lethargic or stuporous Motor Exam: strength 5/5 throughout Psych mental status grossly normal and thought process normal Appearance: Negative for unkempt Attitude: No agitated Mood & Affect: Negative for depressed, anxious or tearful Skin no rashes or lesions noted, no wounds and no jaundice Rashes: No rashes noted Trauma: Negative for abrasion Wounds: Negative for wounds noted MDM MDM MDM Narrative Medical decision making narrative: 88-year-old male on Eliquis due to a prior stroke. Fell backwards in a wheel chair striking his head complaining of mild headache and mild neck pain. CAT scan will be obtained of his head and neck. 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 He does not need any lab work. He does not need any other imaging. Repeat exam patient is doing well at 12:52 AM and will be discharged home. History & Record Review Discussion w/independent historian: Patient and Family Radiography Diagnostic Testing: Clinical Impression(s) from Imaging Studies Brain CT 03/06/24 23:41 IMPRESSION: 1. Chronic involutional changes of the brain. 2. No CT evidence of acute intracranial hemorrhage. Electronically Signed: Eliana Hernandez MD at 0:23 EDT , Cervical Spine CT 03/06/24 23:41 IMPRESSION: 1. No CT evidence of acute compression or displaced fracture. 2. Moderately severe multilevel degenerative changes of the cervical spine with neural foraminal narrowing and acquired central canal stenosis, as described. Electronically Signed: Eliana Hernandez MD at 0:44 EDT , CAT scan of the brain shows no acute abnormality. Chronic changes from his prior stroke. No acute bleed. Read by the radiologist and reviewed by me. CT of the C-spine shows chronic degenerative changes spine but again no acute fracture. Discharge Plan Triage Chief Complaint: Head Injury ED Provider: Timoteo Vasquez Dx/Rx/DC Orders Clinical Impression: Head injury, Cervical muscle strain, Chronic anticoagulation, History of stroke Instructions: ED Head Injury (Adult), ED Neck Sprain or Strain Primary Care Provider: Amrik Jacob Activity Restrictions/Additional Instructions: Hold his Eliquis dose tonight and tomorrow. May restart Wednesday morning. Tylenol for any pain. Return if severe headache, vomiting or not acting himself. Hot shower, warm bath and massage for his neck muscles. Print Language: Niuean Disposition Disposition: Home, Self Care
[2024-03-07] MEDS: Acetaminophen 500 MG Tablet 1000 MG PO (00:35)
[2024-03-07 00:56] VITALS: BP 137/88; PULSE 81; RESP 14; TEMP 36.7; O2SAT 99
== END 2024-03-07 00:57 | disposition home or self-care (01) ==
LOC: ED 03-07 00:11
PROVIDERS: Emergency Provider Emergency Medicine; PCP Family Medicine; Visit Provider Emergency Medicine
DX: S00.03XA Contusion of scalp, initial encounter (principal); S16.1XXA Strain of muscle, fascia and tendon at neck level, initial encounter; W18.39XA Other fall on same level, initial encounter; Y93.89 Activity, other specified; Y99.8 Other external cause status; Y92.520 Airport as the place of occurrence of the external cause; Z79.01 Long term (current) use of anticoagulants; Z86.73 Personal history of transient ischemic attack (TIA), and cerebral infarction without residual deficits; Z87.891 Personal history of nicotine dependence
CPT/HCPCS: 70450; 72125; 99282

== ENCOUNTER → 2024-03-07 | Outpatient (CLI) | payer MEDICARE, SELFPAY ==
--- NOTE | 2024-03-07 13:17 | CT_ITS ---
STUDY: CT CHEST WITH CONTRAST REASON FOR EXAM: Male, 88 years old. Follow up CW sarcoma -- please compare to prior studies RADIATION DOSAGE (If Supplied By Facility): CTDIvol = ( 13.72 ) mGy, DLP = ( 504.71 ) mGycm TECHNIQUE: Transaxial imaging was performed following intravenous administration of 100ML ISOVUE 370. Multiplanar coronal and sagittal images were reformatted. Individualized dose optimization techniques were used for this CT. COMPARISON: Comparison is made with prior study dated November 01, 2023. FINDINGS: CHEST There is a persistent 6.4 cm x 5.3 cm x 7.1 cm mass in the anterior upper aspect of the right chest wall with calcification and destruction of the lateral aspect of the proximal sternum as well as the underlying rib. This extends into the mid level of the thorax. There has been essentially no change. Stable 1.5 cm x 0.9 cm lymph node deep to the right side of the sternum adjacent to the mass medially. The lungs are normal. There is no demonstrated pleural abnormality. There are calcifications of the coronary arteries. Normal mediastinum. Normal hilar regions. Normal unenhanced pulmonary arteries. Normal aorta arch and descending thoracic aorta. There are multi-level degenerative changes of the thoracic spine. Stable mild anterior compression deformity of the T12 vertebrae. There is no demonstrated abnormality of the visualized upper abdomen. CT/Chest WITH Contrast IMPRESSION: Stable examination. Electronically Signed: Ashkan Siu MD at 15:44 EDT ,
[2024-03-07 13:48] LABS: CREATININE FINGERSTICK < 1.0 mg/dL (0.70-1.30); EGFR FINGERSTICK > 60.0000 mL/min (>60)
== END | disposition home or self-care (01) ==
LOC: CT 13:16
PROVIDERS: PCP Family Medicine; Referring Provider Student in an Organized Health Care Education/Training Program; Visit Provider Student in an Organized Health Care Education/Training Program
DX: C41.3 Malignant neoplasm of ribs, sternum and clavicle (principal)
CPT/HCPCS: 71260; Q9967

== ENCOUNTER → 2024-05-11 | Outpatient (CLI) | payer MEDICARE, SELFPAY ==
[2024-05-11 16:19] LABS: Absolute Lymphocyte Count 1.41 X10^3/uL (0.83-4.51); Absolute Neutrophil Count 6.8 X10^3/uL (2.0-7.7); Basophil# 0.08 X10^3/uL; Basophil% 0.9 % (0-1); Eosinophil# 0.08 X10^3/uL; Eosinophils% 0.9 % (0-5); Hematocrit 40.6 % (40-54); Hemoglobin 13.3 g/dL (13.0-16.5); Lymphocyte # 1.41 X10^3/ul (0.83-4.51); Lymphocyte % 15.1 % (19-41); Mean Corp Hgb Conc 32.8 g/dL (32-36); Mean Corpuscular Volume 91.6 fL (80-94); Mean Platelet Vol. 10.8 fl (6.2-12.0); Monocyte# 0.93 X10^3/uL; Monocyte% 9.9 % (0-10); NRBC Flagged by Analyzer 0 % (0-5); Neutrophil % 72.6 % (47-70); Platelet Count 264 K/mm3 (150-450); RBC Distribution Width CV 12.9 % (11.6-14.6); RBC Distribution Width SD 43.3 fl (35.1-43.9); Red Blood Count 4.43 M/mm3 (4.6-6.2); White Blood Count 9.4 K/mm3 (4.4-11.0)
[2024-05-11 16:45] LABS: Hemoglobin A1c 8.2 % (3.8-5.6)
[2024-05-11 16:47] LABS: AST(SGOT) 28 U/L (15-37); Alanine Aminotransfer ALT/SGPT 52 U/L (16-61); Albumin, Serum 3.5 g/dL (3.2-5.0); Alkaline Phosphatase 77 U/L (45-117); Anion Gap 8 (5-15); BUN 12 mg/dL (7-18); BUN/Creat Ratio 13.1 RATIO (10-20); Calcium,Total 9.2 mg/dL (8.5-10.1); Chloride 103 mmol/L (98-107); Cholesterol 104 mg/dL (200); Creatinine, Serum 0.91 mg/dL (0.70-1.30); EST Glomerular Filtration Rate 83 mL/min (>60); Est Glom Filt Rate - Afr Amer 100 mL/min (>60); Globulin 3.6 g/dL (2.2-4.2); Glucose 242 mg/dL (74-106); High Density Lipoprotein 40 mg/dL; Potassium 4.2 mmol/L (3.5-5.1); Protein, Total 7.1 g/dL (6.4-8.2); Sodium Level 135 mmol/L (136-145); Thyroid Stim Hormone (TSH) 4.81 uIU/mL (0.358-3.74); Triglycerides 152 mg/dL; Very Low Density Lipoprotein 30 mg/dL (5-40)
[2024-05-11 17:13] LABS: Hepatitis C Antibody Non-Reactive (Nonreactive); Vitamin D,25 Hydroxy 32.1 ng/mL
== END | disposition home or self-care (01) ==
LOC: POLAB3 15:57
PROVIDERS: PCP Family Medicine Geriatric Medicine; Visit Provider Family Medicine Geriatric Medicine
DX: E78.5 Hyperlipidemia, unspecified (principal); E11.65 Type 2 diabetes mellitus with hyperglycemia; I10 Essential (primary) hypertension; Z13.89 Encounter for screening for other disorder; E55.9 Vitamin D deficiency, unspecified
CPT/HCPCS: 36415; 80053; 80061; 82306; 83036; 84443; 85025; 86803

== ENCOUNTER → 2024-06-02 | Outpatient (CLI) | payer MEDICARE, SELFPAY | END | disposition home or self-care (01) | LOC: POLAB3 11:49 | PROVIDERS: PCP Family Medicine Geriatric Medicine; Visit Provider Family Medicine Geriatric Medicine | DX: N39.0 Urinary tract infection, site not specified (principal) | CPT/HCPCS: 87086; 87088 ==

== ENCOUNTER → 2024-06-23 | Outpatient (CLI) | payer MEDICARE, SELFPAY ==
[2024-06-23 13:23] LABS: Absolute Lymphocyte Count 1.14 X10^3/uL (0.83-4.51); Absolute Neutrophil Count 6.6 X10^3/uL (2.0-7.7); Basophil# 0.05 X10^3/uL; Basophil% 0.6 % (0-1); Eosinophil# 0.05 X10^3/uL; Eosinophils% 0.6 % (0-5); Hemoglobin 13.7 g/dL (13.0-16.5); Lymphocyte # 1.14 X10^3/ul (0.83-4.51); Lymphocyte % 13.3 % (19-41); Mean Corp Hgb Conc 33.4 g/dL (32-36); Mean Corpuscular Hgb 30.4 pg (27.0-32.0); Mean Corpuscular Volume 91.1 fL (80-94); Mean Platelet Vol. 12.1 fl (6.2-12.0); Monocyte# 0.72 X10^3/uL; Monocyte% 8.4 % (0-10); NRBC Flagged by Analyzer 0 % (0-5); Neutrophil # 6.57 X10^3/uL (2.7-7.7); Neutrophil % 76.7 % (47-70); Platelet Count 214 K/mm3 (150-450); RBC Distribution Width CV 12.9 % (11.6-14.6); RBC Distribution Width SD 42.9 fl (35.1-43.9); White Blood Count 8.6 K/mm3 (4.4-11.0)
[2024-06-23 14:11] LABS: AST(SGOT) 28 U/L (15-37); Alanine Aminotransfer ALT/SGPT 41 U/L (16-61); Albumin, Serum 3.5 g/dL (3.2-5.0); Alkaline Phosphatase 80 U/L (45-117); Anion Gap 9 (5-15); BUN 17 mg/dL (7-18); BUN/Creat Ratio 16.7 RATIO (10-20); Calcium,Total 9.9 mg/dL (8.5-10.1); Chloride 105 mmol/L (98-107); Creatinine, Serum 1.02 mg/dL (0.70-1.30); EST Glomerular Filtration Rate 73 mL/min (>60); Est Glom Filt Rate - Afr Amer 89 mL/min (>60); Globulin 3.6 g/dL (2.2-4.2); Glucose 384 mg/dL (74-106); Potassium 4.1 mmol/L (3.5-5.1); Protein, Total 7.1 g/dL (6.4-8.2); Sodium Level 137 mmol/L (136-145)
== END | disposition home or self-care (01) ==
PROVIDERS: PCP Family Medicine Geriatric Medicine; Referring Provider Family Medicine Geriatric Medicine; Visit Provider Family Medicine Geriatric Medicine
DX: N39.0 Urinary tract infection, site not specified (principal); R35.89 Other polyuria; R63.1 Polydipsia
CPT/HCPCS: 36415; 80053; 85025; 87086; 87088

== ENCOUNTER → 2024-07-04 | Outpatient (CLI) | payer MEDICARE, SELFPAY ==
--- NOTE | 2024-07-04 13:53 | CT_ITS ---
EXAM: CT CHEST WITH INTRAVENOUS CONTRAST CLINICAL INDICATION: follow up CW sarcoma -- please compare to prior TECHNIQUE: Helically acquired images were obtained of the chest with intravenous contrast. This CT exam was performed using one or more of the following dose reduction techniques: automated exposure control, adjustment of the mA and/or kV according to patient size, and/or use of iterative reconstruction technique. CONTRAST: IV 100mL Isovue-370 COMPARISON: No relevant prior studies available. FINDINGS: LUNGS AND PLEURAL SPACES: 10.0 x 7.3 x 4.7 cm right anterior chest wall mass noted previously measuring 9.6 x 7.0 x 4.8 cm. Lesion again involves the right costochondral junction extending from the second rib and fifth rib levels. Central partially calcified component again seen. Portion of the mass extending through the intercostal and juxtapleural space. 5 mm in left lower lobe pulmonary nodule noted along the lateral costophrenic sulcus. Lungs are otherwise clear. No pneumothorax. HEART: Normal. Heart size is normal. No pericardial effusion. MEDIASTINUM: Normal. No mediastinal or hilar adenopathy. Esophagus is unremarkable. No hiatal hernia. BONES/JOINTS: No suspicious lytic or blastic abnormality. VASCULATURE: No thoracic aortic aneurysm or dissection. CT/Chest WITH Contrast IMPRESSION: 1. No significant interval change in the right anterior chest wall mass. 2. 5 mm left lower lobe pulmonary nodule. Electronically Signed: Gerardo Calvo MD at 8:45 EDT Reading Location ID and State: [facility] / [facility] Tel , Service support ,
== END | disposition home or self-care (01) ==
LOC: CT 13:53
PROVIDERS: PCP Family Medicine Geriatric Medicine; Referring Provider Student in an Organized Health Care Education/Training Program; Visit Provider Student in an Organized Health Care Education/Training Program
DX: C41.3 Malignant neoplasm of ribs, sternum and clavicle (principal)
CPT/HCPCS: 71260; Q9967

== ENCOUNTER 2024-08-01 13:30 | Outpatient (RCR) | payer MEDICARE, SELFPAY | END 2024-08-10 23:59 | LOC: NS 13:30 | PROVIDERS: PCP Family Medicine Geriatric Medicine; Referring Provider Family Medicine Geriatric Medicine; Visit Provider Family Medicine Geriatric Medicine | DX: Z71.3 Dietary counseling and surveillance (principal); E11.9 Type 2 diabetes mellitus without complications | CPT/HCPCS: 97802 ==

== ENCOUNTER → 2024-08-14 | Outpatient (CLI) | payer MEDICARE, SELFPAY ==
[2024-08-14 16:39] LABS: Absolute Lymphocyte Count 1.57 X10^3/uL (0.83-4.51); Absolute Neutrophil Count 5.6 X10^3/uL (2.0-7.7); Basophil# 0.07 X10^3/uL; Basophil% 0.9 % (0-1); Eosinophil# 0.09 X10^3/uL; Eosinophils% 1.1 % (0-5); Lymphocyte # 1.57 X10^3/ul (0.83-4.51); Lymphocyte % 19.5 % (19-41); Mean Corp Hgb Conc 33.3 g/dL (32-36); Mean Corpuscular Hgb 30.8 pg (27.0-32.0); Mean Corpuscular Volume 92.3 fL (80-94); Mean Platelet Vol. 11.4 fl (6.2-12.0); Monocyte# 0.75 X10^3/uL; Monocyte% 9.3 % (0-10); NRBC Flagged by Analyzer 0 % (0-5); Neutrophil # 5.55 X10^3/uL (2.7-7.7); Neutrophil % 68.7 % (47-70); Platelet Count 232 K/mm3 (150-450); RBC Distribution Width CV 13.2 % (11.6-14.6); RBC Distribution Width SD 44.5 fl (35.1-43.9); Red Blood Count 4.55 M/mm3 (4.6-6.2); White Blood Count 8.1 K/mm3 (4.4-11.0)
[2024-08-14 16:56] LABS: Vitamin D,25 Hydroxy 21.8 ng/mL
[2024-08-14 17:05] LABS: ALB/GLOB Ratio 1.1 RATIO (0.9-2.4); AST(SGOT) 17 U/L (15-37); Alanine Aminotransfer ALT/SGPT 37 U/L (16-61); Albumin, Serum 3.5 g/dL (3.2-5.0); Alkaline Phosphatase 66 U/L (45-117); Anion Gap 6 (5-15); BUN 14 mg/dL (7-18); BUN/Creat Ratio 16.8 RATIO (10-20); Calcium,Total 8.7 mg/dL (8.5-10.1); Chloride 107 mmol/L (98-107); Creatinine, Serum 0.83 mg/dL (0.70-1.30); EST Glomerular Filtration Rate 92 mL/min (>60); Est Glom Filt Rate - Afr Amer 112 mL/min (>60); Globulin 3.2 g/dL (2.2-4.2); Glucose 251 mg/dL (74-106); Potassium 4.3 mmol/L (3.5-5.1); Protein, Total 6.7 g/dL (6.4-8.2); Sodium Level 137 mmol/L (136-145)
== END | disposition home or self-care (01) ==
LOC: POLAB3 15:19
PROVIDERS: PCP Family Medicine Geriatric Medicine; Referring Provider Family Medicine Geriatric Medicine; Visit Provider Family Medicine Geriatric Medicine
DX: I10 Essential (primary) hypertension (principal); E11.65 Type 2 diabetes mellitus with hyperglycemia; E55.9 Vitamin D deficiency, unspecified
CPT/HCPCS: 36415; 80053; 82306; 84443; 85025

== ENCOUNTER 2024-09-18 14:00 | Outpatient (RCR) | payer MEDICARE, SELFPAY | END 2024-10-10 23:59 | LOC: NS 14:00 | PROVIDERS: PCP Family Medicine Geriatric Medicine; Referring Provider Family Medicine Geriatric Medicine; Visit Provider Family Medicine Geriatric Medicine | DX: Z71.3 Dietary counseling and surveillance (principal); E11.9 Type 2 diabetes mellitus without complications | CPT/HCPCS: 97803 ==

== ENCOUNTER → 2024-09-27 | Outpatient (CLI) | payer MEDICARE, SELFPAY | END | disposition home or self-care (01) | PROVIDERS: PCP Family Medicine Geriatric Medicine; Referring Provider Family Medicine Geriatric Medicine; Visit Provider Family Medicine Geriatric Medicine | DX: E03.9 Hypothyroidism, unspecified (principal) | CPT/HCPCS: 36415; 84443 ==

== ENCOUNTER → 2024-11-20 | Outpatient (CLI) | payer MEDICARE, SELFPAY ==
[2024-11-20 15:15] LABS: Absolute Lymphocyte Count 1.69 X10^3/uL (0.83-4.51); Absolute Neutrophil Count 6.5 X10^3/uL (2.0-7.7); Basophil# 0.06 X10^3/uL; Basophil% 0.6 % (0-1); Eosinophils% 1.1 % (0-5); Hematocrit 42.9 % (40-54); Hemoglobin 14.4 g/dL (13.0-16.5); Lymphocyte # 1.69 X10^3/ul (0.83-4.51); Lymphocyte % 18.3 % (19-41); Mean Corp Hgb Conc 33.6 g/dL (32-36); Mean Corpuscular Hgb 30.8 pg (27.0-32.0); Mean Corpuscular Volume 91.7 fL (80-94); Mean Platelet Vol. 12.1 fl (6.2-12.0); Monocyte% 8.7 % (0-10); NRBC Flagged by Analyzer 0 % (0-5); Neutrophil # 6.53 X10^3/uL (2.7-7.7); Neutrophil % 70.7 % (47-70); Platelet Count 205 K/mm3 (150-450); RBC Distribution Width SD 43.2 fl (35.1-43.9); Red Blood Count 4.68 M/mm3 (4.6-6.2); White Blood Count 9.2 K/mm3 (4.4-11.0)
[2024-11-20 15:56] LABS: Vitamin D,25 Hydroxy 19.8 ng/mL
[2024-11-20 15:57] LABS: ALB/GLOB Ratio 0.9 RATIO (0.9-2.4); AST(SGOT) 25 U/L (15-37); Alanine Aminotransfer ALT/SGPT 55 U/L (16-61); Albumin, Serum 3.5 g/dL (3.2-5.0); Alkaline Phosphatase 67 U/L (45-117); Anion Gap 8 (5-15); BUN 12 mg/dL (7-18); BUN/Creat Ratio 17.3 RATIO (10-20); Calcium,Total 8.7 mg/dL (8.5-10.1); Chloride 108 mmol/L (98-107); Creatinine, Serum 0.69 mg/dL (0.70-1.30); EST Glomerular Filtration Rate 114 mL/min (>60); Est Glom Filt Rate - Afr Amer 138 mL/min (>60); Globulin 3.7 g/dL (2.2-4.2); Glucose 177 mg/dL (74-106); Protein, Total 7.2 g/dL (6.4-8.2); Sodium Level 140 mmol/L (136-145)
== END | disposition home or self-care (01) ==
LOC: POLAB3 14:28
PROVIDERS: PCP Family Medicine Geriatric Medicine; Visit Provider Family Medicine Geriatric Medicine
DX: I10 Essential (primary) hypertension (principal); E11.65 Type 2 diabetes mellitus with hyperglycemia; E55.9 Vitamin D deficiency, unspecified
CPT/HCPCS: 36415; 80053; 82306; 84443; 85025

== ENCOUNTER → 2024-12-05 | Outpatient (CLI) | payer MEDICARE, SELFPAY ==
--- NOTE | 2024-12-05 15:40 | RAD_ITS ---
PROCEDURE: Right knee radiographs, two views REASON FOR EXAM: Primary osteoarthritis TECHNIQUE: Two views of the right knee were obtained. COMPARISON: 01/15/2021 FINDINGS: Two views of the right knee were obtained. The bones are osteopenic. No acute fracture or dislocation of the right knee. Moderate tricompartmental degenerative changes, slightly progressed. No sizeable joint effusion. RAD/Knee 1 or 2 Views IMPRESSION: Osteopenia. No acute bony abnormality of the right knee, greatest involving th e medial compartment. Slightly progressed moderate tricompartmental degenerative changes of the right knee. Reading Location: [facility]
--- NOTE | 2024-12-05 15:40 | RAD_ITS ---
PROCEDURE: SHOULDER MIN 2 VIEWS REASON FOR EXAM: Right shoulder pain. TECHNIQUE: Four views were obtained. COMPARISON: None. FINDINGS: RIGHT SHOULDER: No fracture. No suspicious bone lesion. Mild degree of joint space narrowing of the glenohumeral joint. Mild degree of degenerative changes of the acromioclavicular joint. Soft tissues are unremarkable. RAD/Shoulder min 2 Views IMPRESSION: DEGENERATIVE OSTEOARTHROSIS. NO ACUTE FINDINGS. Reading Location: [facility]
--- NOTE | 2024-12-05 15:40 | RAD_ITS ---
PROCEDURE: Left shoulder radiographs, four views REASON FOR EXAM: Left shoulder pain TECHNIQUE: Four views of the left shoulder were obtained. COMPARISON: None. FINDINGS: Four views of the left shoulder were obtained. The bones are osteopenic. Left hilar calcified granulomas are present. Included left lung otherwise clear. An electronic device projects over the lateral soft tissues of the upper left arm. No acute fracture or dislocation of the left shoulder. Mild degenerative change left acromioclavicular joint. The subacromial space is maintained. Ungisxht-sn-sakidp degenerative change of the left glenohumeral joint. RAD/Shoulder min 2 Views IMPRESSION: Osteopenia. No acute bony abnormality of the left shoulder. Mild degenerative change of the left acromioclavicular joint. Moderate/severe degenerative change left glenohumeral joint. Reading Location: [facility]
== END | disposition home or self-care (01) ==
LOC: RAD 15:26
PROVIDERS: PCP Family Medicine Geriatric Medicine; Referring Provider Family Medicine Geriatric Medicine; Visit Provider Family Medicine Geriatric Medicine
DX: M17.11 Unilateral primary osteoarthritis, right knee (principal); M25.511 Pain in right shoulder; M25.512 Pain in left shoulder
CPT/HCPCS: 73030; 73560

== ENCOUNTER → 2025-01-03 | Outpatient (CLI) | payer MEDICARE, SELFPAY ==
--- NOTE | 2025-01-03 10:13 | CT_ITS ---
PROCEDURE: CHEST WITH CONTRAST 01/03/2025 REASON FOR EXAM: 89-year-old male, FOLLOW UP CW SARCOMA TECHNIQUE: Axial chest CT with intravenous contrast. Coronal and Sagittal reconstruction series were provided. One or more dose reduction techniques were used (e.g., Automated exposure control, adjustment of the mA and/or kV according to patient size, use of iterative reconstruction technique). CONTRAST: Isovue-300 VOLUME: 100mL RADIATION DOSE SUMMARY: CTDlvol: 27 mGy DLP: 440 mGycm COMPARISON: CT chest 07/04/2024. FINDINGS: Hardware: None Increasing size of the previously seen soft tissue mass in the anterior aspect of the upper chest wall with a coarse calcification within it causing underlying destruction of the 2nd 3rd and 4th ribs. This extends into the costochondral junction medially with the extension into the anterior aspect of the medial right upper lobe. This has increased in size as compared to prior study. Lymph nodes: No significant mediastinal lymph nodes are seen. No hilar lymph nodes are seen. Heart and Vasculature: The heart is not enlarged. No coronary calcification is present. Lungs and Airways: Mild emphysematous changes are present. Pleura: Unremarkable Upper Abdomen: Status post cholecystectomy. Bones: Degenerative changes of the thoracic spine. CT/Chest WITH Contrast IMPRESSION: Increasing size of the right anterior chest wall mass with destruction of the c ostochondral junction medially and adjacent ribs. The remainder of the examination is unchanged. Reading Location: [place] [id number]
[2025-01-03 10:30] LABS: CREATININE FINGERSTICK < 1.0 mg/dL (0.70-1.30); EGFR FINGERSTICK > 60.0000 mL/min (>60)
== END | disposition home or self-care (01) ==
LOC: CT 09:53
PROVIDERS: PCP Family Medicine Geriatric Medicine; Referring Provider Student in an Organized Health Care Education/Training Program; Visit Provider Student in an Organized Health Care Education/Training Program
DX: C41.3 Malignant neoplasm of ribs, sternum and clavicle (principal)
CPT/HCPCS: 71260; Q9967

== ENCOUNTER → 2025-02-08 | Outpatient (CLI) | payer MEDICARE, SELFPAY ==
[2025-02-08 16:49] LABS: Absolute Lymphocyte Count 1.52 X10^3/uL (0.83-4.51); Absolute Neutrophil Count 5.6 X10^3/uL (2.0-7.7); Basophil# 0.08 X10^3/uL; Eosinophil# 0.14 X10^3/uL; Eosinophils% 1.7 % (0-5); Hematocrit 41.5 % (40-54); Hemoglobin 13.7 g/dL (13.0-16.5); Lymphocyte # 1.52 X10^3/ul (0.83-4.51); Lymphocyte % 18.6 % (19-41); Mean Corpuscular Hgb 30.4 pg (27.0-32.0); Mean Corpuscular Volume 92.2 fL (80-94); Mean Platelet Vol. 12.9 fl (6.2-12.0); Monocyte# 0.79 X10^3/uL; Monocyte% 9.7 % (0-10); NRBC Flagged by Analyzer 0 % (0-5); Neutrophil % 68.5 % (47-70); Platelet Count 203 K/mm3 (150-450); RBC Distribution Width CV 12.9 % (11.6-14.6); RBC Distribution Width SD 43.5 fl (35.1-43.9); White Blood Count 8.2 K/mm3 (4.4-11.0)
[2025-02-08 18:36] LABS: ALB/GLOB Ratio 1.4 RATIO (0.9-2.4); AST(SGOT) 49 U/L (<=37); Alanine Aminotransfer ALT/SGPT 71 U/L (<=46); Albumin, Serum 3.9 g/dL (3.4-4.8); Alkaline Phosphatase 73 U/L (40-129); Anion Gap 11 (5-15); BUN 8 mg/dL (4-19); BUN/Creat Ratio 8.2 RATIO (10-20); Calcium,Total 8.8 mg/dL (7.6-11.0); Carbon Dioxide 23.3 mmol/L (21.0-32.0); Chloride 107 mmol/L (98-108); Creatinine, Serum 1.02 mg/dL (0.70-1.20); EST Glomerular Filtration Rate 70 (>60); Globulin 2.7 g/dL (2.2-4.2); Glucose 266 mg/dL (70-99); Potassium 4.4 mmol/L (3.3-5.1); Protein, Total 6.7 g/dL (5.9-8.4); Sodium Level 140 mmol/L (133-145); Total Bilirubin 0.51 mg/dL (0.00-1.30); Vitamin D,25 Hydroxy 10.3 ng/mL (30-100)
== END | disposition home or self-care (01) ==
LOC: LAB 15:01
PROVIDERS: PCP Family Medicine Geriatric Medicine; Referring Provider Family Medicine Geriatric Medicine; Visit Provider Family Medicine Geriatric Medicine
DX: I10 Essential (primary) hypertension (principal); E11.65 Type 2 diabetes mellitus with hyperglycemia; E55.9 Vitamin D deficiency, unspecified
CPT/HCPCS: 36415; 80053; 82306; 84443; 85025

== ENCOUNTER → 2025-02-12 | Outpatient (CLI) | payer MEDICARE, SELFPAY ==
[2025-02-13 05:07] LABS: HEPATITIS B SURFACE AG Negative (Negative); Hep C Antibodies Non Reactive (Non Reactive); Hepatitis A IgM Antibody Negative (Negative); Hepatitis B Core AB IgM Negative (Negative)
== END | disposition home or self-care (01) ==
LOC: LAB 13:02
PROVIDERS: PCP Family Medicine Geriatric Medicine; Visit Provider Family Medicine Geriatric Medicine
DX: R74.8 Abnormal levels of other serum enzymes (principal)
CPT/HCPCS: 36415; 80074

== ENCOUNTER 2025-02-13 15:07 | Outpatient (RCR) | payer MEDICARE, SELFPAY | END 2025-03-10 23:59 | LOC: NS 15:07 | PROVIDERS: PCP Family Medicine Geriatric Medicine; Referring Provider Family Medicine Geriatric Medicine; Visit Provider Family Medicine Geriatric Medicine | DX: Z71.3 Dietary counseling and surveillance (principal); E11.9 Type 2 diabetes mellitus without complications | CPT/HCPCS: 97803 ==

== ENCOUNTER → 2025-02-19 | Outpatient (CLI) | payer MEDICARE, SELFPAY ==
--- NOTE | 2025-02-19 16:30 | LES_PTH ---
PATIENT: ZACHARY LEMA LOC: [facility] U#:[id number] AGE/SX: 89/M ROOM: RE02/19/[address]: Dr. Edgar Carr MD : 1935 BED: DIS: 02/19/2025 SPEC #: [id number] RECD: 02/19/25 17:19 STATUS: ULICES HILDA #: [id number] KYLE: 02/19/25 16:[address]: Edgar Carr DEPT: SURGICAL PATHOLOGY RECD BY: Brian Alanis ENTERED: 02/20/25 08:30 SP TYPE: Lesion OTHR DR: Dr. Sandoval Montalvo MD Tissues: A - Skin of forearm, NOS Procedures: Surgery Specimen Level IV HEADER OPERATION: Biopsy PRE-OP DIAGNOSIS: Biopsy TISSUE SUBMITTED: A- Right forearm lesion MICROSCOPIC DIAGNOSIS A. Skin, left forearm, shave biopsy: * Atypical squamous proliferation (See note) Note: Sections show a superficial piece of atypical squamous proliferation in which the base/and or entire lesion is not seen which precludes further evaluation of the lesion If this is part of a larger or clinically suspicious lesion, additional deeper sampling and/or complete excision is recommended. The slide is reviewed with Nilo Recinos MD in consultation. MICROSCOPIC DESCRIPTION Slides are reviewed. GROSS DESCRIPTION A. Received in formalin in a container labeled with the patient's name, date of , and right forearm is an unoriented and irregular skin shave measuring 0.6 x 0.5 cm with a depth of 0.1 cm. The white-dale epidermis exhibits an ill-defined 0.6 x 0.5 x 0.2 cm roughened nodule that abuts the peripheral margins. The deep margin is inked green, and it is trisected to reveal that the nodule appears to abut the deep margin. Submitted entirely in A1. [facility] 02-20-2025 CPT:49683
--- NOTE | 2025-02-19 16:30 | LES_PTH ---
PATIENT: ZACHARY LEMA LOC: [facility] U#:[id number] AGE/SX: 89/M ROOM: RE02/19/[address]: Dr. Edgar Carr MD : 1935 BED: DIS: 02/19/2025 SPEC #: [id number] RECD: 02/19/25 17:19 STATUS: ULICES HILDA #: [id number] KYLE: 02/19/25 16:[address]: Edgar Carr DEPT: SURGICAL PATHOLOGY RECD BY: Brian Alanis ENTERED: 02/20/25 08:30 SP TYPE: Lesion OTHR DR: Dr. Sandoval Montalvo MD Tissues: A - Skin of forearm, NOS Procedures: Surgery Specimen Level IV HEADER OPERATION: Biopsy PRE-OP DIAGNOSIS: Biopsy TISSUE SUBMITTED: A- Right forearm lesion MICROSCOPIC DIAGNOSIS A. Skin, right forearm, shave biopsy: * Atypical squamous proliferation (See note) Note: Sections show a superficial piece of atypical squamous proliferation in which the base/and or entire lesion is not seen which precludes further evaluation of the lesion If this is part of a larger or clinically suspicious lesion, additional deeper sampling and/or complete excision is recommended. The slide is reviewed with Nilo Recinos MD in consultation. MICROSCOPIC DESCRIPTION Slides are reviewed. GROSS DESCRIPTION A. Received in formalin in a container labeled with the patient's name, date of , and right forearm is an unoriented and irregular skin shave measuring 0.6 x 0.5 cm with a depth of 0.1 cm. The white-dale epidermis exhibits an ill-defined 0.6 x 0.5 x 0.2 cm roughened nodule that abuts the peripheral margins. The deep margin is inked green, and it is trisected to reveal that the nodule appears to abut the deep margin. Submitted entirely in A1. [facility] 02-20-2025 CPT:31661
--- NOTE | 2025-02-19 16:30 | LES_PTH ---
PATIENT: ZACHARY LEMA LOC: [facility] U#:[id number] AGE/SX: 89/M ROOM: RE02/19/[address]: Dr. Edgar Carr MD : 1935 BED: DIS: 02/19/2025 SPEC #: [id number] RECD: 02/19/25 17:19 STATUS: ULICES HILDA #: [id number] KYLE: 02/19/25 16:[address]: Edgar Carr DEPT: SURGICAL PATHOLOGY RECD BY: Brian Alanis ENTERED: 02/20/25 08:30 SP TYPE: Lesion OTHR DR: Dr. Sandoval Montalvo MD Tissues: A - Skin of forearm, NOS Procedures: Surgery Specimen Level IV HEADER OPERATION: Biopsy PRE-OP DIAGNOSIS: Biopsy TISSUE SUBMITTED: A- Right forearm lesion MICROSCOPIC DIAGNOSIS A. Skin, right forearm, shave biopsy: * Atypical squamous proliferation (See note) Note: Sections show a superficial piece of atypical squamous proliferation in which the base/and or entire lesion is not seen which precludes further evaluation of the lesion. If this is part of a larger or clinically suspicious lesion, additional deeper sampling and/or complete excision is recommended. The slide is reviewed with Nilo Recinos MD in consultation. COMMENT This corrected report is proxy signed by Dr Caleb Odom for Dr Miguel Angel Mcfarlane. MICROSCOPIC DESCRIPTION Slides are reviewed. GROSS DESCRIPTION A. Received in formalin in a container labeled with the patient's name, date of , and right forearm is an unoriented and irregular skin shave measuring 0.6 x 0.5 cm with a depth of 0.1 cm. The white-dale epidermis exhibits an ill-defined 0.6 x 0.5 x 0.2 cm roughened nodule that abuts the peripheral margins. The deep margin is inked green, and it is trisected to reveal that the nodule appears to abut the deep margin. Submitted entirely in A1. [facility] 02-20-2025 CPT:96032
== END | disposition home or self-care (01) ==
LOC: LABSPEC 02-20 08:29
PROVIDERS: PCP Family Medicine Geriatric Medicine; Visit Provider Surgery Plastic and Reconstructive Surgery
DX: R69 Illness, unspecified (principal)
CPT/HCPCS: 88305

== ENCOUNTER → 2025-02-20 | Outpatient (CLI) | payer MEDICARE, SELFPAY ==
--- NOTE | 2025-02-20 09:27 | US_ITS ---
PROCEDURE: ABDOMEN LIMITED 02/20/2025 REASON FOR EXAM: ABNORMAL LEVELS OF OTHER SERUM ENZYMES TECHNIQUE: Complete abdominal ultrasound ahmadi-scale images with color doppler. PATIENT PREPARATION: Per protocol COMPARISON: None FINDINGS: Liver: Diffusely echogenic suggesting fatty infiltration. Gallbladder: Surgically absent. Common bile duct: Normal measuring 4 mm. Pancreas: With calcifications and dilated pancreatic duct. Correlation with a CT scan is recommended.. Kidneys: The right kidney measures 10.9 cm x 5.1 cm 5.1 cm. There is a 7.8 cm x 6.6 cm x 5.6 cm cyst in the mid inferior pole of the kidney. US/Abdomen Limited IMPRESSION: Status post cholecystectomy. Heterogeneous appearance of the Reading Location: [id number]
== END | disposition home or self-care (01) ==
PROVIDERS: PCP Family Medicine Geriatric Medicine; Referring Provider Family Medicine Geriatric Medicine; Visit Provider Family Medicine Geriatric Medicine
DX: R74.8 Abnormal levels of other serum enzymes (principal)
CPT/HCPCS: 76705

== ENCOUNTER → 2025-03-06 | Outpatient (CLI) | payer MEDICARE, SELFPAY ==
--- NOTE | 2025-03-06 07:18 | US_ITS ---
PROCEDURE: ELASTOGRAPHY PARENCHYMA/ORGAN, 03/06/2025 REASON FOR EXAM: FATTY LIVER, ELEVATED LIVER ENZYMES COMPARISON: 03/20/2022 TECHNIQUE: Elastography was performed for non-invasive assessment of liver tissue stiffness utilizing a Naurex S-shear wave imaging unit. FINDINGS: Number of measurements: 15 measurements across 3 regions, 5 measurements per region. US probe: CA1-7A. EQI median: 8.8 kPa EQI median velocity: 1.71 m/s IQR/Med: 9.0-21.5% (kPa) and 5.4-10.7% (m/s). If the IQR/Med is IQR/median >30% (for kPa) or >15% in m/s, the variance in the measurements is a large and the accuracy of the measurement may be in question. US/Elastography Parenchyma/Organ IMPRESSION: 1. Liver stiffness is 8.8 kPa. Per the below 2020 SRU criteria, this rules out compensated advanced chronic liver disease in the absence of other known clinical signs. If there are known clinical signs, furth er testing may be needed for confirmation. 2. Additional description as above. Assessment is per the Update to the SRU Liver Elastography Consensus Statement (2020) Note that the above assessment of liver fibrosis is vendor-neutral and intended for use in fibrosis related to viral etiologies and non-alcoholic fatty-liver disease (NAFLD); in causes other than viral hepat itis and NAFLD, the cutoff values are currently not well established. In some patients with NAFLD, the cutoff values for cACLD may be lower (7-9 kPa). Note also that in the setting of elevated LFTs, nonfasting or vascular congestion, the stage of lifer fibrosis may be overestimated. Previous SRU reference values: <1.37 m/s (5.7kPa): No to mild fibrosis 1.37 m/s - 2.2 m/s: Moderate to severe fibrosis >2.2 m/s (15kPa): Significant fibrosis / cirrhosis Reading Location: [id number]
== END | disposition home or self-care (01) ==
LOC: US 07:17
PROVIDERS: PCP Family Medicine Geriatric Medicine; Referring Provider Family Medicine Geriatric Medicine; Visit Provider Family Medicine Geriatric Medicine
DX: K76.0 Fatty (change of) liver, not elsewhere classified (principal)
CPT/HCPCS: 76981

== ENCOUNTER → 2025-03-12 | Outpatient (CLI) | payer MEDICARE, SELFPAY ==
[2025-03-12 15:05] LABS: Absolute Lymphocyte Count 1.32 X10^3/uL (0.83-4.51); Absolute Neutrophil Count 5.4 X10^3/uL (2.0-7.7); Basophil# 0.07 X10^3/uL; Basophil% 0.9 % (0-1); Eosinophil# 0.14 X10^3/uL; Eosinophils% 1.8 % (0-5); Hematocrit 40.6 % (40-54); Hemoglobin 13.4 g/dL (13.0-16.5); Lymphocyte # 1.32 X10^3/ul (0.83-4.51); Lymphocyte % 17.3 % (19-41); Mean Corpuscular Hgb 30.7 pg (27.0-32.0); Mean Corpuscular Volume 93.1 fL (80-94); Monocyte# 0.67 X10^3/uL; Monocyte% 8.8 % (0-10); NRBC Flagged by Analyzer 0 % (0-5); Neutrophil # 5.41 X10^3/uL (2.7-7.7); Neutrophil % 70.7 % (47-70); Platelet Count 199 K/mm3 (150-450); RBC Distribution Width CV 12.7 % (11.6-14.6); RBC Distribution Width SD 43.6 fl (35.1-43.9); Red Blood Count 4.36 M/mm3 (4.6-6.2); White Blood Count 7.7 K/mm3 (4.4-11.0)
== END | disposition home or self-care (01) ==
LOC: LAB 14:21
PROVIDERS: PCP Family Medicine Geriatric Medicine; Referring Provider Family Medicine Geriatric Medicine; Visit Provider Family Medicine Geriatric Medicine
DX: I10 Essential (primary) hypertension (principal)
CPT/HCPCS: 36415; 85025

== ENCOUNTER → 2025-03-22 | Outpatient (CLI) | payer MEDICARE, SELFPAY ==
--- NOTE | 2025-03-22 13:50 | LES_PTH ---
PATIENT: ZACHARY LEMA LOC: [facility] U#:[id number] AGE/SX: 89/M ROOM: RE03/22/[address]: Dr. Edgar Carr MD : 1935 BED: DIS: 03/22/2025 SPEC #: [id number] RECD: 03/22/25 17:13 STATUS: ULICES HILDA #: [id number] KYLE: 03/22/25 13:[address]: Edgar aCrr DEPT: SURGICAL PATHOLOGY RECD BY: Brian Alanis ENTERED: 03/23/25 09:53 SP TYPE: Lesion OTHR DR: Dr. Sandoval Montalvo MD Tissues: A - Skin of forearm, NOS Procedures: Surgery Specimen Level IV HEADER OPERATION: Excision right lateral forearm PRE-OP DIAGNOSIS: Lateral forearm lesion TISSUE SUBMITTED: A- Short proximal, long anterior/lateral, right forearm lesion MICROSCOPIC DIAGNOSIS A. Skin, right lateral forearm, lesion, excision: * Negative for neoplasia. * Solar lentigo. * Scar and associated reactive changes consistent with a previous surgical procedure. MICROSCOPIC DESCRIPTION Slides are reviewed. GROSS DESCRIPTION A. Received in formalin labeled with the patient's name and date of . Designated as short proximal, long anterior/lateral right forearm lesion is a 1.5 x 1.3 cm tinajero ovoid skin shave with slightly irregular borders, excised to a maximum depth of 0.5 cm. There is focal congestion of the deep soft tissue. There is a short suture designated as proximal, and a long suture designated as anterior. The specimen is inked as follows: Anterior half (deep) -greenPosterior half (deep) -[id number]-[id number]-kbxa Eccentrically on the epidermal surface is a 0.3 x 0.2 cm pink-red, slightly raised lesion located the following distances from the margins: Anterior-0.8 cmPosterior-0.5 cmProximal-0.6 cmDistal-0.4 cmDeep-0.4 cm The specimen is serially sectioned from anterior to posterior and sequentially in 2 cassettes as follows:A1: Anterior halfA2: Posterior half, including the entirety of the lesion [place] 03/23/2024 CPT: 91663
== END | disposition home or self-care (01) ==
LOC: LABSPEC 03-23 09:17
PROVIDERS: PCP Family Medicine Geriatric Medicine; Visit Provider Surgery Plastic and Reconstructive Surgery
DX: L81.4 Other melanin hyperpigmentation (principal)
CPT/HCPCS: 88305

== ENCOUNTER → 2025-03-23 | Outpatient (CLI) | payer MEDICARE, SELFPAY | END | disposition home or self-care (01) | LOC: LABSPEC 10:53 | PROVIDERS: PCP Family Medicine Geriatric Medicine; Referring Provider Surgery Plastic and Reconstructive Surgery; Visit Provider Surgery Plastic and Reconstructive Surgery | DX: Z00.00 Encounter for general adult medical examination without abnormal findings (principal) ==

== ENCOUNTER → 2025-04-05 | Outpatient (CLI) | payer MEDICARE, SELFPAY ==
--- NOTE | 2025-04-05 13:03 | CT_ITS ---
PROCEDURE: CHEST WITH CONTRAST 04/05/2025 REASON FOR EXAM: FOLLOW UP CW SARCOMA TECHNIQUE: CHEST WITH CONTRAST Coronal and Sagittal reconstruction series were provided. CONTRAST: Isovue-300 VOLUME: 99 mL One or more dose reduction techniques were used (e.g., Automated exposure control, adjustment of the mA and/or kV according to patient size, use of iterative reconstruction technique). RADIATION DOSE SUMMARY: CTDlvol: 13.67 mGy DLP: 519.15 mGycm COMPARISON: 01/03/2025. FINDINGS: FINDINGS: Normal enhancement of the main pulmonary artery and right and left pulmonary arteries. Normal enhancement of the bilateral peripheral pulmonary arteries. There is no demonstrated pulmonary embolism. Normal thoracic aorta and visualized great vessels. There is no demonstrated aortic dissection. Normal heart and pericardium. Normal mediastinum. Normal hilar regions. Normal visualized trachea and bronchi. The lungs are well expanded. Normal pulmonary parenchyma. Previously described right anterior chest wall soft tissue mass eroding into the underlying ribs and sternum again seen, essentially unchanged measuring 8.7 x 8.2 cm in axial dimension. The mass extends posteriorly into the anterior aspect of the right pleural cavity. Normal osseous structures. In the abdomen, the visualized liver is normal in size and density. Gallbladder is not visualized. The pancreas is atrophic with multiple calcifications consistent with chronic pancreatitis. CT/Chest WITH Contrast IMPRESSION: Stable right anterior chest wall mass as described above. No change since the prior exam. Findings of chronic pancreatitis. Reading Location: [facility] [address]
[2025-04-05 13:31] LABS: CREATININE FINGERSTICK < 1.0 mg/dL (0.70-1.30); EGFR FINGERSTICK > 60.0000 mL/min (>60)
--- OUTSIDE RECORDS SUMMARY | 2025-04-05 21:42 | XMS RPT_ITS | CCD ---
Author Organization [facility] Care Team Providers Care Actuarial Mathematician Name Role Phone EMILIA JACOB Primary Care Unavailable MARCELA GARCIA Attending Unavailable EMILIA CARDENAS Referring Unavailable SETFFI AMADOR Attending Unavailable CECILY SCHAFFER Referring Unavailable EMILIA JACOB Primary Care Unavailable Emilia Jacob MD Primary Care Provider Dr. Emilia Jacob Primary Care Provider Dr. Maci Jauregui Emergency Provider Dr. Jamal Victoria Admit Provider Dr. Jamal Victoria Attending Provider Dr. Jamal Victoria Other Provider Dr. Isabell Capone Other Provider Dr. Hector Mclain Attending Provider Dr. Hector Mclain Other Provider Dr. Emilia Massey Attending Provider Dr. Emilia Massey Other Provider Emilia Jacob MD Primary Care Provider Emilia Jacob MD Primary Care Provider Dr. Emilia Jacob Primary Care Provider Dr. Emilia Jacob Referring Provider Dr. Jarrell Mojica Attending Provider [phone] Emilia Jacob Primary Care Provider Dr. Emilia Jacob Referring Provider Galina, Dr. Dixie Attending Provider Roof COMMUNICATIONS DEPARTMENT CHAIRPERSON, COMMUNICATIONS DEPARTMENT CHAIRPERSON-July Sotelo Attending Provider Merline, Dr. Marquez Attending Provider Dr. Emilia Jacob Primary Care Provider Dr. Emilia Jacob Referring Provider Dr. Jimmy Rick Attending Provider William KAN, PA Caitlin Ellis Attending Provider Dr. Andres Shipley Attending Provider Dr. Emilia Jacob Primary Care Provider Dr. Emilia Jacob Referring Provider Dr. Andres Shipley Attending Provider Merline, Dr. Marquez Attending Provider Dr. Emilia Jacob Primary Care Provider Dr. Emilia Jacob Referring Provider Dr. Andres Shipley Attending Provider William KAN, PA Caitlin Ellis Attending Provider Emilia Jacob MD Primary Care Provider Selvin, Sandoval Chi Primary Care Provider EMILIA JACOB Attending Unavailable EMILIA JACOB Primary Care Unavailable EMILIA JACOB Primary Care Unavailable EMILIA JACOB Attending Unavailable EMILIA JACOB Primary Care Unavailable EMILIA JACOB Referring Unavailable EMILIA JACOB Primary Care Unavailable EMILIA JACOB Primary Care Unavailable DIGNA CHAKRABORTY Referring Unavailable EMILIA JACOB Primary Care Unavailable DIGNA CHAKRABORTY Attending Unavailable EMILIA JACOB Primary Care Unavailable HEIDY SINGLETON Attending Unavailable EMILIA JACOB Referring Unavailable EMILIA JACOB Primary Care Unavailable EMILIA JACOB Attending Unavailable SELF Referring Unavailable EMILIA JACOB Primary Care Unavailable Selvin, Sandoval Chi Attending Unavailable Selvin, Sandoval Chi Primary Care Unavailable Selvin, Sandoval Chi Referring Unavailable Selvin, Sandoval Chi Primary Care Unavailable Andres Shipley Attending Unavailable Andres Shipley Referring Unavailable Selvin, Sandoval Chi Attending Unavailable Selvin, Sandoval Chi Primary Care Unavailable Selvin, Sandoval Chi Referring Unavailable Selvin, Sandoval Chi Primary Care Unavailable Edgar Carr Attending Unavailable Selvin, Sandoval Chi Primary Care Unavailable Edgar Carr Attending Unavailable SiskaEdgar Referring Unavailable Caitlin Oconnor Attending Unavail able Selvin, Sandoval Chi Referring Unavailable Selvin, Sandoval Chi Primary Care Unavailable Selvin, Sandoval Chi Primary Care Unavailable Selvin, Sandoval Chi Attending Unavailable Selvin, Sandoval Chi Referring Unavailable Selvin, Sandoval Chi Attending Unavailable Selvin, Sandoval Chi Referring Unavailable Selvin, Sandoval Chi Primary Care Unavailable Selvin, Sandoval Chi Primary Care Unavailable Selvin, Sandoval Chi Attending Unavailable Lucas Nicole Attending Unavailable Shayanbrock, Emilia Primary Care Unavailable Nidia, Emilia Referring Unavailable Edgar Carr Attending Unavailable Selvin, Sandoval Chi Primary Care Unavailable Selvin, Sandoval Chi Referring Unavailable Vincent Olmstead Attending Unavailable Selvin, Sandoval Chi Primary Care Unavailable Selvin, Sandoval Chi Attending Unavailable Selvin, Sandoval Chi Primary Care Unavailable Selvin, Sandoval Chi Referring Unavailable Selvin, Sandoval Chi Primary Care Unavailable Selvin, Sandoval Chi Referring Unavailable Selvin, Sandoval Chi Attending Unavailable Selvin, Sandoval Chi Primary Care Unavailable Selvin, Sandoval Chi Attending Unavailable Selvin, Sandoval Chi Primary Care Unavailable Selvin, Sandoval Chi Referring Unavailable Selvin, Sandoval Chi Attending Unavailable Selvin, Sandoval Chi Primary Care Unavailable Selvin, Sandoval Chi Referring Unavailable Selvin, Sandoval Chi Attending Unavailable Selvin, Sandoval Chi Primary Care Unavailable Vincent Olmstead Attending Unavailable Edgar Carr Attending Unavailable Selvin, Sandoval Chi Primary Care Unavailable Selvin, Sandoval Chi Referring Unavailable Selvin, Sandoval Chi Primary Care Unavailable Vincnet Olmstead Attending Unavailable Selvin, Sandoval Chi Primary Care Unavailable Edgar Carr Attending Unavailable Selvin, Sandoval Chi Referring Unavailable Selvin, Sandoval Chi Primary Care Unavailable Selvin, Sandoval Chi Attending Unavailable Selvin, Sandoval Chi Primary Care Unavailable Selvin, Sandoval Chi Referring Unavailable Selvin, Sandoval Chi Attending Unavailable Selvin, Sandoval Chi Primary Care Unavailable Selvin, Sandoval Chi Referring Unavailable Selvin, Sandoval Chi Attending Unavailable Selvin, Sandoval Chi Attending Unavailable Selvin, Sandoval Chi Primary Care Unavailable Selvin, Sandoval Chi Attending Unavailable Selvin, Sandoval Chi Referring Unavailable Selvin, Sandoval Chi Primary Care Unavailable Andres Shipley Attending Unavailable Andres Shipley Referring Unavailable Selvin, Sandoval Chi Primary Care Unavailable Selvin, Sandoval Chi Primary Care Unavailable Andres Shipley Attending Unavailable Andres Shipley Referring Unavailable Selvin, Sandoval Chi Primary Care Unavailable Selvin, Sandoval Chi Referring Unavailable Selvin, Sandoval Chi Attending Unavailable Edgar Carr Attending Unavailable Selvin, Sandoval Chi Primary Care Unavailable Selvin, Sandoval Chi Primary Care Unavailable Andres Shipley Attending Unavailable Allergies Allergy Classification Reported Allergen(s) Allergy Type Date of Onset Reaction(s) Facility (20 sources) Lactate Drug Allergy 6 [facility] Work Phone: (9 sources) Penicillins; Translations: [PENICILLINS] Propensity to adverse reactions 5 [facility] Work Phone: (9 sources) Lactate Drug Allergy 2 [facility] (20 sources) Penicillins Propensity to adverse reactions 5 [facility] Work Phone: (7 sources) Penicillins Allergy to substance 3 [facility] (1 source) OTHER; Translations: [OTHER] Propensity to adverse reactions (disorder) 6 [facility] (1 source) Lactate Drug Allergy 5 [facility] (1 source) Penicillins Drug allergy (disorder) 5 [facility] Medications Current Medications Medication Drug Class(es) Dates Sig (Normalized) Sig (Original) 24 hr alfuzosin hydrochloride 10 mg extended release oral tablet (20 sources) alpha-Adrenergic Yue Start: 10-02-2020 End: 11-24-2023 take 1 tablet by mouth once daily alfuzosin SR (UROXATRAL) 10 mg 24 hr tablet Take 1 tablet by mouth once daily. 90 tablet 3 11/24/2023 Active Comment on above: Take 1 tablet by waldemar th once daily. amLODIPine 5 mg oral tablet (20 sources) Dihydropyridine Calcium Channel Yue Start: 11-25-2023 take 1 tablet by mouth once daily amLODIPine (NORVASC) 5 mg tablet Take 1 tablet by mouth once daily. 90 tablet 3 11/25/2023 Active Start: 03-15-2021 End: 11-17-2023 take 1 tablet by mouth once daily amLODIPine (NORVASC) 5 mg tablet Take 1 tablet by mouth once daily. 90 tablet 3 11/25/2023 Active Comment on above: Take 1 tablet by waldem[facility] once daily. take 1 tablet by waldem[facility] once daily apixaban 2.5 mg oral tablet (20 sources) Factor Xa Inhibitor Start: 11-01-2023 End: 04-27-2024 take 1 tablet by mouth twice daily apixaban (ELIQUIS) 2.5 mg tab(s) Indications: Atrial fibrillation, unspecified type (HCC) Take 1 tablet by mouth two times a day. 60 tablet 11 04/27/2024 Active Start: 02-08-2023 take 2 tablets by mo uth twice daily apixaban (ELIQUIS) 2.5 mg tab(s) Indications: Atrial fibrillation, unspecified type (HCC) Take 2 tablets by mouth twice daily. 0 02/08/2023 Active Start: 02-04-2023 End: 05-18-2023 take 1 tablet by mouth twice daily apixaban (ELIQUIS) 2.5 mg tab(s) Indications: Atrial fibrillation, unspecified type (HCC) Take 1 tablet by mouth two times a day. 60 tablet 11 11/01/2023 Active Start: 11-13-2021 End: 02-08-2023 take 1 tablet by mouth twice daily Apixaban (Eliquis) 5 mg tablet Discontinued 5 MG PO TWICE A DAY 60 November 09, 2022 11:17am February 04, 2023 1:14pm 11/13/21-Called to [facility]30 day free card faxed per request of pharmacist Comment on above: Take 1 tablet by waldem[facility] twice daily. Take 2 tablets by mo ut twice daily. Take 1 tablet by waldemar th two times a day. atorvastatin 80 mg oral tablet (20 sources) HMG-CoA Reductase Inhibitor Start: 03-15-20 End: 11-24-19 take 1 tablet by mouth once daily atorvastatin (LIPITOR) 80 mg tablet Take 1 tablet by mouth once daily. 90 tablet 3 11/24/2023 Active Comment on above: take 1 tablet by waldemar [facility] once daily Take 1 tablet by waldemar th once daily. augmented betamethasone 0.5 mg/ml topical cream (20 sources) Corticosteroid Start: 10-23-19 betamethasone dipropionate, augmented (DIPROLENE) 0.05 % cream Dr. Bridger Lomax. Apply as needed for eczema. 10/23/2021 Active Comment on above: Dr. Bridger Lomax. Roya ly as needed for eczema. 0.5 ml dulaglutide 3 mg/ml auto-injector (20 sources) GLP-1 Receptor Agonist Start: 07-03-20 End: 06-07-20 dulaglutide (TRULICITY) 1.5 mg/0.5 mL pen injector Inject 1.5 mg subcutaneously one time a week. Inject once per week. Discard Pen After 4 Each 5 06/07/2023 Active Start: 07-03-2022 dulaglutide (T RULICITY) 1.5 mg/0.5 mL pen injector Inject 1.5 mg subcutaneously one time a week. Inject once per week. Discard Pen After 4 Each 5 07/03/2022 Active Start: 06-02-2022 End: 06-07-2023 inject 0.75 mg by subcutaneous injection every week dulaglutide (TRULICITY) 0.75 mg/0.5 mL pen injector Indications: Type 2 diabetes mellitus without complication, without long-term current use of insulin (HCC) Inject 0.75 mg subcutaneously one time a week. Inject dose once per week. Discard Pen After 4 Each 0 06/02/2022 06/07/2023 Discontinued Comment on above: Inject 1.5 mg subcut aneously one time a week. Inject once per week. Discard Pen After Inject 0.75 mg subcu taneously one time a week. Inject dose once per week. Discard Pen After dutasteride 0.5 mg oral capsule (20 sources) 5-alpha Reductase Inhibitor Start: 10-02-20 End: 08-30-20 take 1 capsule by mouth once daily dutasteride (AVODART) 0.5 mg capsule Take 1 capsule by mouth once daily. 90 capsule 3 08/30/2023 Active Comment on above: Take 1 capsule by mo uth once daily. FLUoxetine 40 mg oral capsule (20 sources) Serotonin Reuptake Inhibitor Start: 11-17-19 Fluoxetine Active 40 MG PO DAILY November 17, 2022 1:27pm Take with 40 mg cap to = 60 mg daily Start: 11-17-2022 take 2 capsules by m outh once daily, then take 3 capsules by mouth once daily Fluoxetine Active 20 MG PO DAILY November 17, 2022 2:27pm Take with 40 mg cap to = 60 mg daily Start: 11-17-2022 Fluoxetine Act vince 40 MG PO DAILY November 17, 2022 1:00am Take with 20 mg cap to = 60 mg daily Start: 06-02-2022 End: 02-23-2024 take 1 capsule by mouth once daily FLUoxetine (PROZAC) 40 mg capsule Indications: 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) , Fatigue, unspecified type Take 1 capsule by mouth once daily. 90 capsule 3 02/24/2024 Active Start: 03-15-2021 End: 12-17-2023 take 1 capsule by mouth once daily FLUoxetine (PROZAC) 20 mg capsule Indications: 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) Take 1 capsule by mouth once daily. Take along with 40 mg capsule 90 capsule 3 12/17/2023 Active Comment on above: Take 1 capsule by mo uth once daily. Take one pill every other day Take 1 capsule by mo uth once daily. Take 1 capsule by mo uth once daily. Take along with 40 mg capsule take 1 capsule by mo uth once daily glimepiride 2 mg oral tablet (20 sources) Sulfonylurea Start: 02-02-20 take 1 tablet by mouth once daily at breakfast glimepiride (AMARYL) 2 mg tablet Indications: Type 2 diabetes mellitus without complication, without long-term current use of insulin (HCC) Take 1 tablet by mouth daily with breakfast. 90 tablet 3 02/02/2024 Active Start: 03-21-2022 End: 11-17-2022 take 5 mg by mouth once daily glimepiride Discontinued 5 MG PO.IVFORM DAILY March 21, 2022 12:00am November 17, 2022 2:27pm Start: 03-21-2022 End: 11-17-2022 take 5 mg by mouth once daily glimepiride Discontinued 5 MG PO.IVFORM DAILY March 20, 2022 11:00pm November 17, 2022 1:27pm Start: 03-21-2022 take 5 mg by mouth once daily glimepiride Active 5 MG PO.IVFORM DAILY March 21, 2022 12:00am Start: 11-20-2021 End: 12-10-2022 take 1 tablet by mouth once daily at breakfast glimepiride (AMARYL) 2 mg tablet Indications: Type 2 diabetes mellitus without complication, without long-term current use of insulin ([facility]) Take 1 tablet by mouth daily with breakfast. 90 tablet 3 12/10/2022 Active Comment on above: Take 1 tablet by waldemar th daily with breakfast. take 1 tablet by waldemar th once daily with breakfast lisinopril 40 mg oral tablet (20 sources) Angiotensin Converting Enzyme Inhibitor Start: 11-25-2020 End: 12-17-2023 take 1 tablet by mouth once daily lisinopril (ZESTRIL) 40 mg tablet Indications: Essential hypertension, benign Take 1 tablet by mouth once daily. 90 tablet 3 12/17/2023 Active Start: 10-02-2020 End: 03-15-2021 take 10 mg by mouth once daily Lisinopril Discontinued 10 MG PO DAILY October 02, 2020 12:00am March 15, 2021 4:52pm Comment on above: Take 1 tablet by waldemar th once daily. Multivitamin preparation (9 sources) Start: 03-18-2021 take 1 tablet by mouth once daily Multivitamin Active 1 TABLET PO DAILY March 18, 2021 1:13pm Start: 03-18-2021 take 1 tablet by waldemar th once daily Multivitamin Active 1 TABLET PO DAILY March 17, 2021 11:00pm Start: 03-18-2021 take 1 tablet by waldemar th once daily Multivitamin Active 1 TABLET PO DAILY March 18, 2021 12:00am multivitamin tablet (20 sources) Start: 11-20-2021 take 1 tablet by mouth once daily multivitamin tablet Take 1 tablet by mouth once daily. 11/20/2021 Active Start: 11-20-2021 take 1 tablet by waldemar th once daily multivitamin tablet Take 1 tablet by mouth once daily. 0 11/20/2021 Active Comment on above: Take 1 tablet by waldemar th once daily. ondansetron 4 mg disintegrating oral tablet (20 sources) Serotonin-3 Receptor Antagonist Start: 05-18-2023 Ondansetron Active MG translingual THREE TIMES A DAY May 17, 2023 11:00pm Start: 02-08-2023 take 1 tablet by waldemar th every six hours as needed for nausea ondansetron orally disintegrating (ZOFRAN ODT) 4 mg disintegrating tablet Indications: Nausea and vomiting, unspecified vomiting type Take 1 tablet by mouth every 6 hours as needed for nausea/vomiting. 30 tablet 2 02/08/2023 Active Comment on above: Take 1 tablet by waldemar th every 6 hours as needed for nausea/vomiting. pantoprazole 40 mg delayed release oral tablet (20 sources) Proton Pump Inhibitor Start: 2021 End: 2023 take 1 tablet by mouth once daily before breakfast pantoprazole DR (PROTONIX) 40 mg tablet Indications: GERD without esophagitis Take 1 tablet by mouth daily before breakfast. Take on empty stomach, 1/2 hr before meal. 90 tablet 3 02/14/2024 Active Comment on above: Take 1 tablet by waldemar th daily before breakfast. Take on empty stomach, 1/2 hr before meal. semaglutide (OZEMPIC) 0.25 mg or 0.5 mg (2 mg/3 mL) pen (12 sources) Start: 2023 inject 0.5 mg by subcutaneous injection every week semaglutide (OZEMPIC) 0.25 mg or 0.5 mg (2 mg/3 mL) pen Indications: Type 2 diabetes mellitus without complication, without long-term current use of insulin (HCC) Inject 0.5 mg subcutaneously one time a week. 3 mL 5 11/26/2023 Active Comment on above: Inject 0.5 mg subcut aneously one time a week. Completed/Discontinued Medications Medication Drug Class(es) Dates Sig (Normalized) Sig (Original) acetaminophen 325 mg / HYDROcodone bitartrate 5 mg oral tablet (17 sources) Opioid Agonist Start: 11-19-2023 End: 11-26-2023 take 1 tablet by mouth every six hours as needed for pain HYDROcodone-aceta minophen (NORCO) 5-325 mg per tablet Indications: Closed fracture of one rib of left side, sequela Take 1 tablet by mouth every 6 hours as needed for pain for up to 7 days. 28 tablet 0 11/19/2023 11/26/2023 Start: 11-16-2023 take 1 tablet by waldemar th every six hours as needed Hydrocodone-Acetaminophen Active 1 TABLE T PO EVERY 6 HOURS NEEDED 12 3 November 16, 2023 Start: 03-25-2022 End: 05-25-2022 take 1 tablet by mouth every eight hours Hydrocodone-Acetaminophen Discontinued 1 TABLET PO Q8H 15 5 March 25, 2022 May 25, 2022 8:35am Start: 03-25-2022 End: 06-02-2022 take 1 tablet by mouth every eight hours HYDROcodone-acetaminophen (NORCO) 5-325 mg per tablet take 1 tablet by mouth every 8 hours for 5 days 0 03/25/2022 06/02/2022 Discontinued Comment on above: take 1 tablet by waldemar th every 8 hours for 5 days Take 1 tablet by waldemar th every 6 hours as needed for pain for up to 7 days. cetirizine hydrochloride 10 mg oral capsule (9 sources) Histamine-1 Receptor Antagonist Start: 03-18-20 End: 11-22-19 24 take 1 capsule by mouth once daily Cetirizine (Zyrtec) 10 mg capsule Discontinued 10 MG PO DAILY March 17, 2021 11:00pm November 22, 2023 3:46pm cholecalciferol 0.05 mg oral capsule (9 sources) Vitamin D Start: 10-02-20 End: 03-15-20 take 50 ug by mouth once daily Cholecalciferol (Vitamin D3) Discontinued 50 MCG PO DAILY October 02, 2020 12:00am March 15, 2021 4:55pm cyclobenzaprine hydrochloride 10 mg oral tablet (9 sources) Muscle Relaxant Start: 10-02-20 End: 03-15-20 take 10 mg by mouth twice daily Cyclobenzaprine Discontinued 10 MG PO TWICE A DAY October 02, 2020 12:00am March 15, 2021 4:55pm diphenhydrAMINE hydrochloride 25 mg oral tablet (20 sources) Histamine-1 Receptor Antagonist Start: 03-21-20 End: 05-25-20 22 take 25 mg by mouth at bedtime Benadryl Discontinued 25 MG PO.IVFORM AT BEDTIME March 20, 2022 11:00pm May 25, 2022 8:35am Start: 11-20-2021 End: 12-11-2023 take 1 capsule by mouth every six hours as needed diphenhydrAMINE (BENADRYL) 25 mg capsule Take 1 capsule by mouth every 6 hours as needed. 0 11/20/2021 12/11/2023 Discontinued Start: 10-02-2020 End: 03-15-2021 take 25 mg by mouth once daily as needed Diphenhydramine Hcl Discontinued 25 MG PO DAILY NEEDED October 02, 2020 12:00am March 15, 2021 4:55pm Comment on above: Take 1 capsule by mo [facility] every 6 hours as needed. doxycycline hyclate 100 mg oral tablet (18 sources) Tetracycline-class Drug Start: 3 End: 4 take 1 tablet by mouth twice daily doxycycline (VIBRA-TABS) 100 mg tablet Indications: Cough, unspecified type , Chest congestion , Sinus congestion Take 1 tablet by mouth twice daily. 20 tablet 0 11/09/2022 12/28/2023 Discontinued (Other) Comment on above: Take 1 tablet by [facility] twice daily. finasteride 5 mg oral tablet (9 sources) 5-alpha Reductase Inhibitor Start: 1 End: take 5 mg by mouth once daily Finasteride Discontinued 5 MG PO DAILY March 14, 2021 11:00pm March 18, 2021 12:11pm Magnesium (9 sources) Start: 0 End: 1 take 500 mg by mouth once daily Magnesium Discontinued 500 MG PO DAILY October 02, 2020 8:49pm March 15, 2021 5:55pm Start: 10-02-2020 End: 03-15-2021 take 500 mg by mouth once daily Magnesium Discontinued 500 MG PO DAILY October 02, 2020 12:00am March 15, 2021 4:55pm Start: 10-02-2020 End: 03-15-2021 take 500 mg by mouth once daily Magnesium Discontinued 500 MG PO DAILY October 02, 2020 1:00am March 15, 2021 5:55pm meloxicam 15 mg oral tablet (9 sources) Nonsteroidal Anti-inflammatory Drug Start: 10-02-2020 End: 03-15-2021 take 15 mg by mouth once daily Meloxicam Discontinued 15 MG PO DAILY October 02, 2020 12:00am March 15, 2021 4:55pm 24 hr metFORMIN hydrochloride 500 mg extended release oral tablet (20 sources) Biguanide Start: 11-07-2021 End: 11-17-2022 take 1000 mg by mouth once daily Metformin Discontinued 1000 MG PO DAILY November 07, 2021 12:00am November 17, 2022 1:28pm Start: 08-14-2021 End: 12-28-2023 take 2 tablets by mouth every twenty-four hours at breakfast metFORMIN ER (GLUCOPHAGE XR) 500 mg 24 hr tablet Indications: Type 2 diabetes mellitus without complication, without long-term current use of insulin (HCC) Take 2 tablets by mouth with breakfast 180 tablet 3 12/02/2021 12/28/2023 Discontinued (Other) Comment on above: Take 2 tablets by mo uth with breakfast Qottwskojstf-Htox-Agp ic Acid (9 sources) Start: 10-02-2020 End: 03-18-2021 Xfqkgtodyjko-Vhzg-Lecap Acid Discontinued 1 EACH PO DAILY October 02, 2020 8:49pm March 18, 2021 1:12pm Start: 10-02-2020 End: 03-18-2021 Ipeqhbszoyvc-Dtat-Chzob Acid Discontinued 1 EACH PO DAILY October 02, 2020 12:00am March 18, 2021 12:12pm Start: 10-02-2020 End: 03-18-2021 Jgcgyvnmpjqk-Nnop-Vcanj Acid Discontinued 1 EACH PO DAILY October 02, 2020 1:00am March 18, 2021 1:12pm sildenafil 100 mg oral tablet (5 sources) Phosphodiesterase 5 Inhibitor Start: 11-20-2021 End: 02-26-2022 sildenafil (VIAGRA) 100 mg tablet Take one pill 30-60 minutes prior to sexual activity 6 tablet 5 11/20/2021 02/26/2022 Discontinued Comment on above: Take one pill 30-60 minutes prior to sexual activity tamsulosin hydrochloride 0.4 mg oral capsule (9 sources) alpha-Adrenergic Yue Start: 03-15-2021 End: 03-18-2021 take 0.4 mg by mouth once daily Tamsulosin Discontinued 0.4 MG PO DAILY March 14, 2021 11:00pm March 18, 2021 12:12pm Problems Active Problems Problem Classification Problem Date Documented Date Episodic/Chronic Abdominal pain (9 sources) Abdominal pain - cause unknown; Translations: [Upper abdominal pain, unspecified] 02-23-2020 Episodic Acute cerebrovascular disease (20 sources) Cerebrovascular accident; Translations: [Cerebral infarction, unspecified] Onset: 11-11-2020 11-11-2020 Chronic Biliary tract disease (9 sources) Biliary calculus; Translations: [Calculus of gallbladder without cholecystitis without obstruction] Episodic Blindness and vision defects (9 sources) Peripheral visual field defect; Translations: [Other localized visual field defect, unspecified eye] 03-18-2021 Episodic Cancer of bone and connective tissue (20 sources) Malignant neoplasm of ribs, sternum and clavicle; 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] Onset: 11-19-2023 02-03-2023 Chronic Cardiac dysrhythmias (20 sources) Atrial fibrillation; Translations: [Unspecified atrial fibrillation] Onset: 11-19-2023 Chronic Diabetes mellitus without complication (20 sources) Type 2 diabetes mellitus without complication; Translations: [Type 2 diabetes mellitus without complications] Onset: 11-21-2019 Chronic Disorders of lipid metabolism (20 sources) Pure hypercholesterolemia; Translations: [Pure hypercholesterolemia, unspecified] Onset: 09-26-2010 09-26-2010 Chronic Esophageal disorders (3 sources) Gastroesophageal reflux disease without esophagitis; Translations: [Gastro-esophageal reflux disease without esophagitis] Chronic Essential hypertension (20 sources) Benign essential hypertension; Translations: [Essential (primary) hypertension] Onset: 02-25-2012 Resolved: 02-25-2012 Chronic Immunizations and screening for infectious disease (1 source) Vaccination needed; Translations: [Encounter for immunization] Episodic Malaise and fatigue (4 sources) Fatigue; Translations: [Other fatigue] Episodic Mood disorders (20 sources) Moderate major depression, single episode; Translations: [Major depressive disorder, single episode, moderate] Onset: 12-02-2020 12-02-2020 Chronic Nausea and vomiting (2 sources) Nausea; Translations: [Nausea] Episodic Neoplasms of unspecified nature or uncertain behavior (1 source) Neoplasm of uncertain behavior of skin; Translations: [Neoplasm of uncertain behavior of skin] Onset: 03-22-2025 Episodic Osteoarthritis (20 sources) Degenerative joint disease involving multiple joints; Translations: [Polyosteoarthritis, unspecified] Onset: 10-14-2005 09-26-2010 Chronic Other circulatory disease (1 source) Pulmonary congestion ; Translations: [Other specified symptoms and signs involving the circulatory and respiratory systems] Episodic Other connective tissue disease (9 sources) Weakness of face muscles; Translations: [Facial weakness] 03-15-2021 Episodic Other connective tissue disease (9 sources) Muscle weakness of upper limb; Translations: [Other symptoms and signs involving the musculoskeletal system] 03-15-2021 Episodic Other fractures (2 sources) Fracture of rib; Translations: [Fracture of one rib, unspecified side, initial encounter for closed fracture] 11-16-2023 Episodic Other fractures (1 source) Closed fracture of single left rib; Translations: [Fracture of one rib, left side, sequela] 11-19-2023 Episodic Other injuries and conditions due to external causes (13 sources) Closed injury of head; Translations: [Unspecified injury of head, initial encounter] 07-03-2021 Episodic Other liver diseases (1 source) Fatty (change of) liver, not elsewhere classified; Translations: [Fatty (change of) liver, not elsewhere classified] Onset: 03-12-2025 Chronic Other liver diseases (1 source) Abnormal levels of other serum enzymes; Translations: [Abnormal levels of other serum enzymes] Onset: 03-01-2025 Episodic Other lower respiratory disease (2 sources) Cough; Translations: [Cough, unspecified type] Episodic Other lower respiratory disease (1 source) Dyspnea on exertion; Translations: [Other forms of dyspnea] 11-22-2023 Episodic Other lower respiratory disease (1 source) Other forms of dyspnea; Translations: [Other respiratory abnormalities] 11-22-2023 Episodic Other male genital disorders (1 source) Secondary erectile dysfunction; Translations: [Male erectile dysfunction, unspecified] Chronic Other nervous system disorders (9 sources) Dysarthria; Translations: [Dysarthria and anarthria] 03-15-2021 Episodic Other skin disorders (2 sources) Mass of chest wall; Translations: [Localized swelling, mass and lump, trunk] 12-01-2022 Episodic Other skin disorders (1 source) Localized swelling, mass and lump, trunk; Translations: [Swelling, mass, or lump in chest] 12-30-2022 Episodic Other skin disorders (1 source) Night sweats; Translations: [Generalized hyperhidrosis] 03-23-2024 Episodic Other skin disorders (1 source) Generalized hyperhidrosis; Translations: [Night sweats] Onset: 03-24-2024 Episodic Other skin disorders (1 source) Other melanin hyperpigmentation; Translations: [Other melanin hyperpigmentation] Onset: 03-28-2025 Episodic Other upper respiratory disease (1 source) Congestion of nasal sinus; Translations: [Nasal congestion] Episodic Other upper respiratory infections (1 source) Upper respiratory infection; Translations: [Acute upper respiratory infection, unspecified] 08-19-2023 Episodic Pancreatic disorders (not diabetes) (11 sources) Pancreatitis; Translations: [Acute pancreatitis without necrosis or infection, unspecified] Episodic Residual codes; unclassified (1 source) Acquired absence of other specified parts of digestive tract; Translations: [Other postprocedural status] Episodic Residual codes; unclassified (1 source) Illness; Translations: [Illness, unspecified] 03-23-2024 Episodic Residual codes; unclassified (2 sources) Illness, unspecified; Translations: [Illness] Onset: 03-24-2024 Episodic Sprains and strains (9 sources) Strain of neck muscle; Translations: [Strain of muscle, fascia and tendon at neck level, initial encounter] 07-03-2021 Episodic Superficial injury; contusion (8 sources) Contusion of back; Translations: [Contusion of unspecified back wall of thorax, initial encounter] 02-06-2023 Episodic Thyroid disorders (1 source) Hypothyroidism, unspecified; Translations: [Hypothyroidism, unspecified] Onset: 10-26-2024 Chronic Past or Other Problems Problem Classification Problem Date Documented Date Episodic/Chronic Allergic reactions (20 sources) Solar degeneration; Translations: [Other skin changes due to chronic exposure to nonionizing radiation] Onset: 09-20-2009 Resolved: 10-27-2016 02-25-2012 Episodic Deficiency and other anemia (8 sources) Anemia; Translations: [Anemia, unspecified] Onset: 05-01-2009 Resolved: 10-27-2016 10-27-2016 Episodic Diabetes mellitus without complication (20 sources) Impaired fasting glycemia; Translations: [Impaired fasting glucose] Onset: 01-01-2010 10-06-2021 Episodic Other circulatory disease (20 sources) History of cerebrovascular accident; Translations: [Personal history of transient ischemic attack (TIA), and cerebral infarction without residual deficits] Onset: 10-02-2020 Episodic Other circulatory disease (6 sources) Personal history of transient ischemic attack (TIA), and cerebral infarction without residual deficits; Translations: [Personal history of transient ischemic attack (TIA), and cerebral infarction without residual deficits] Onset: 10-02-2020 11-17-2022 Episodic Other connective tissue disease (8 sources) Cramp in lower limb; Translations: [Cramp and spasm] Onset: 06-29-2011 Resolved: 02-25-2012 02-25-2012 Episodic Other infections; including parasitic (8 sources) Babesiosis; Translations: [Babesiosis] Onset: 05-07-2009 Resolved: 04-14-2013 04-14-2013 Episodic Other inflammatory condition of skin (8 sources) Seborrheic psoriasis; Translations: [Other psoriasis] Onset: 07-14-2012 Resolved: 04-14-2013 04-14-2013 Chronic Other inflammatory condition of skin (8 sources) Seborrheic dermatitis; Translations: [Other seborrheic dermatitis] Onset: 09-13-2012 Resolved: 03-12-2015 03-12-2015 Episodic Other lower respiratory disease (8 sources) Lung field abnormal; Translations: [Nonspecific abnormal findings on radiological and other examination of lung field] Onset: 05-03-2009 Resolved: 04-14-2013 04-14-2013 Episodic Other screening for suspected conditions (not mental disorders or infectious disease) (16 sources) Liver function tests abnormal; Translations: [Abnormal results of liver function studies] Onset: 05-07-2009 Resolved: 10-27-2016 04-14-2013 Episodic Other skin disorders (20 sources) Actinic keratosis; Translations: [Actinic keratosis] Onset: 09-20-2009 Resolved: 10-27-2016 02-25-2012 Episodic Other skin disorders (16 sources) Seborrheic keratosis; Translations: [Other seborrheic keratosis] Onset: 09-20-2009 Resolved: 03-12-2015 02-25-2012 Episodic Other skin disorders (20 sources) Solar lentigo; Translations: [Other melanin hyperpigmentation] Onset: 09-20-2009 Resolved: 03-12-2015 02-25-2012 Episodic Other skin disorders (16 sources) Asteatosis cutis; Translations: [Xerosis cutis] Onset: 09-20-2009 Resolved: 03-12-2015 02-25-2012 Episodic Other skin disorders (16 sources) Epidermoid cyst of skin; Translations: [Epidermal cyst] Onset: 09-28-2010 Resolved: 03-12-2015 02-25-2012 Episodic Other skin disorders (8 sources) Folliculitis; Translations: [Follicular disorder, unspecified] Onset: 07-14-2012 Resolved: 04-14-2013 04-14-2013 Episodic Other skin disorders (8 sources) Inflamed seborrheic keratosis; Translations: [Inflamed seborrheic keratosis] Onset: 09-13-2012 Resolved: 03-12-2015 03-12-2015 Episodic Other skin disorders (8 sources) Changes in skin texture; Translations: [Other skin changes] Onset: 09-13-2012 Resolved: 04-14-2013 04-14-2013 Episodic Other skin disorders (8 sources) Scar; Translations: [Scar conditions and fibrosis of skin] Onset: 08-27-2013 Resolved: 03-12-2015 03-12-2015 Episodic Other skin disorders (8 sources) Acne; Translations: [Other acne] Onset: 08-27-2013 Resolved: 03-12-2015 03-12-2015 Episodic Skin and subcutaneous tissue infections (8 sources) Pyoderma; Translations: [Pyoderma] Onset: 07-14-2012 Resolved: 04-14-2013 04-14-2013 Episodic Spondylosis; intervertebral disc disorders; other back problems (20 sources) Chronic low back pain; Translations: [Chronic midline low back pain without sciatica] Onset: 10-14-2005 Resolved: 10-27-2016 05-24-2017 Episodic Urinary tract infections (1 source) Urinary tract infection, site not specified; Translations: [Urinary tract infection, site not specified] Onset: 07-16-2024 Episodic Results Test Name Value Interpretation Reference Range Facility MR/BMS.BPon 04-03-2025 MR/[place] [address] OFFICE VISIT Date of Service: 04/03/25 MR#: [id number] Acct: [id number] Name: ZACHARY MCDERMOTT Rep #: [id number] : 1935 Provider: Dr. Vincent Alvarado se, DO Age/Sex: 89/M [facility] [facility] Status: Signed Intake Vital Signs 01/08/25 09:50 03/22/25 13:37 04/03/25 09:56 Height 5 ft 10 in 5 ft 10 in 5 ft 10 in Weight: 180 lb BMI 25.8 BP 131/84 H Blood Pressure Location Lt brachial Position Sitting Respiration 18 Pulse 93 Pulse Source Monitor BP Intake Visit Reasons: 3 M FU Accompanied by: Allergies lactic acid (From Lac-Hydrin) Allergy (Verified 04/03/25 10:01) Rash Penicillins Allergy (Verified 04/03/25 10:01) Unknown Medications ???Medication ???Instructions ???Recorded ???Confirmed ???Type alfuzosin 10 mg tablet,extended 10 mg PO DAILY prostate 10/02/20 0 04/03/25 History release 24 hr atorvastatin 80 mg tablet 80 mg PO QHS 03/15/21 04/03/25 His tory lisinopril 40 mg tablet 40 mg PO DAILY BP 03/15/21 5 History dutasteride 0.5 mg capsule 0.5 mg PO DAILY 03/18/21 04/03/25 History multivitamin 1 tab PO DAILY 03/18/21 04/03/25 H istory apixaban 2.5 mg tablet (Eliquis) 2.5 mg PO BID Please reduce dose 0 05/18/23 04/03/25 Rx to 2.5 mg twice daily #60 tabs latanoprost 0.005 % eye drops 1 drp ophthalmic (eye) DAILY 03/2804/03/25 History melatonin 3 mg capsule 3 mg PO HS PRN 03/28/24 04/03/25 H istory levothyroxine 25 mcg tablet mcg PO DAILY 11/08/24 04/03/25 His tory insulin glargine U-300 conc 300 55 unit subcut BID 12/29/24 History unit/mL (3 mL) subcutaneous pen (Toujeo Max U-300 SoloStar) ofloxacin 0.3 % eye drops 1 drp ophthalmic (eye) 4X/DAY 12/1004/03/25 History citalopram 20 mg tablet 20 mg PO DAILY #90 tabs 04/03/25 0 04/03/25 Rx Have you fallen in the past year?: No PFSH Medical History Memory deficit Hyperlipidemia MDD (major depressive disorder) Diabetes Chondrosarcoma of ribs Chronic eczema PAF (paroxysmal atrial fibrillation) Cholelithiasis Wears glasses Wears hearing aid Cancer Bruising Walker as ambulation aid Ambulates with cane Easy bruising High cholesterol Former smoker Hypertension Loss of peripheral visual field BPH (benign prostatic hyperplasia) Basal cell carcinoma Cryptogenic stroke 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) Essential (primary) hypertension Left arm weakness Facial droop Dysarthria Acute ischemic stroke Chronic back pain Surgical History History of shoulder surgery Status post laparoscopic cholecystectomy H/O basal cell carcinoma excision Family History Sister Ovarian cancer Diabetes old age onset Mother Basal cell carcinoma Father CHF (congestive heart failure) Diabetes old age onset Grandfather Diabetes old age onset Social History household members: spouse current occupational exposures/hazards: No Smoking Status: Former smoker pack-years: 20 Tobacco: How many years used: 20 how long ago did patient quit smokin years ago; quit sometime in the s alcohol intake: current alcohol intake frequency: holidays/special occasions only substance use type: does not use caffeine: Yes (Occasionally, drinks mostly caffeine free beverages) HPI History of Present Illness History provided by: patient HPI: Mark Mcdermott is an 89 year old male who presents today for follow up evaluation. Again is very slow in responding to questioning and is very hard of hearing. Hopes to be able to address his poor hearing if possible. Patient reports that he has been ok. Feels like he has been up to nothing. All 3 children were home at the same time this past weekend so this helped brighten mood. Sleep has been better maybe. Feels like he is getting to sleep easier and staying asleep better. Does live at [facility] in independent living with his . Health has been fairly stable. Does still feel tired intermittently. Does feel tired after having to walk in to office. Reports he generally doesn't walk as much at his home at [place]. Denies any problems with medication at this time. Describes memory as I remember what I have to remember. Does on occasion forget names. Denies any thoughts of suicide, although admits to having such thoughts months ago. Denies HI or AVH. Follows with Dr. Montalvo for primary care. Recently had skin lesion removed from his arm, but reports that it is healing up well. Reports that his has been doing well. Review of Systems Constitutional Reports: fatigue; Denies: fever(s), ch (more content not included)... Normal [facility] Plastic Surgery Visit Report on 03-29-2025 Plastic Surgery Visit Report [facility] [address], [address] [place] [address] OFFICE VISIT Date of Service: 03/29/25 MR#: [id number] Acct: [id number] Name: ZACHARY MCDERMOTT Rep #: [id number] : 1935 Provider: Dr. Edgar Carr MD Age/Sex: 89/M Location[facility] Status: Signed Intake Vital Signs 03/22/25 13:37 03/29/25 15:08 Height 5 ft 10 in BP 138/80 H 125/85 H Blood Pressure Location Lt brachial Lt brachial Position Sitting Sitting Respiration 18 18 Pulse 98 94 Pulse Source Monitor Temp 98.0 F Temp Source Temporal Pulse Oximetry (%) 95 92 Oxygen Delivery Method room air room air Comment ambulates with cane Intake Visit Reasons: POST OP Chief Complaint: Skin lesion right lateral arm lesion Is patient in pain?: No Allergies lactic acid (From Lac-Hydrin) Allergy (Verified 03/29/25 15:08) Rash Penicillins Allergy (Verified 03/29/25 15:08) Unknown Medications ???Medication ???Instructions ???Recorded ???Confirmed ???Type alfuzosin 10 mg tablet,extended 10 mg PO DAILY prostate 10/02/20 0 03/29/25 History release 24 hr atorvastatin 80 mg tablet 80 mg PO QHS 03/15/21 03/29/25 His tory lisinopril 40 mg tablet 40 mg PO DAILY BP 03/15/21 5 History dutasteride 0.5 mg capsule 0.5 mg PO DAILY 03/18/21 03/29/25 History multivitamin 1 tab PO DAILY 03/18/21 03/29/25 H istory apixaban 2.5 mg tablet (Eliquis) 2.5 mg PO BID Please reduce dose 0 05/18/23 03/29/25 Rx to 2.5 mg twice daily #60 tabs latanoprost 0.005 % eye drops 1 drp ophthalmic (eye) DAILY 03/2803/29/25 History melatonin 3 mg capsule 3 mg PO HS PRN 03/28/24 03/29/25 H istory citalopram 20 mg tablet 20 mg PO DAILY #90 tabs 11/08/24 0 03/29/25 Rx levothyroxine 25 mcg tablet mcg PO DAILY 11/08/24 03/29/25 His tory insulin glargine U-300 conc 300 55 unit subcut BID 12/29/24 History unit/mL (3 mL) subcutaneous pen (Toujeo Max U-300 SoloStar) ofloxacin 0.3 % eye drops 1 drp ophthalmic (eye) 4X/DAY 12/1003/29/25 History Have you fallen in the past year?: No Subjective Details: The patient is an 89-year-old male presenting with a follow-up for the right arm after a lesion excision. The lesion was located on the right lateral forearm and was excised on the of the previous month. The excised lesion was initially suspected to be cancerous, but subsequent analysis showed no malignancy. The pathology report indicated a scar with reactive changes, which was unexpected given the size of the excised lesion. The patient has been advised to keep the sutures in place for two weeks post- procedure, with removal planned in the clinic next week. pathology from 22 March 2025 MICROSCOPIC DIAGNOSIS A. Skin, right lateral earm, ???lesion???, excision: - Negative for neoplasia. - Solar lentigo. - Scar and associated reactive changes consistent with a previous surgical procedure Attestation: Documentation on this patient encounter was supported using ambient scribe technology/ voice AI technology. The patient consented to recording for the purpose of documenting the encounter. Provider reviewed content of the generated note prior to signature. Objective Details: - Integumentary: Right arm suture line clean, dry, and intact Coding Level of Care Code Global Post Op Diagnoses Neoplasm of uncertain behavior of skin D48.5 [facility] Medical History Memory deficit Hyperlipidemia MDD (major depressive disorder) Diabetes Chondrosarcoma of ribs Chronic eczema PAF (paroxysmal atrial fibrillation) Cholelithiasis Wears glasses Wears hearing aid Cancer Bruising Walker as ambulation aid Ambulates with cane Easy bruising High cholesterol Former smoker Hypertension Loss of peripheral visual field BPH (benign prostatic hyperplasia) Basal cell carcinoma Cryptogenic stroke 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) Essential (primary) hypertension Left arm weakness Facial droop Dysarthria Acute ischemic stroke Chronic back pain Surgical History History of shoulder surgery Status post laparoscopic cholecystectomy H/O basal cell carcinoma excision Family History Sister Ovarian cancer Diabetes old age onset Mother Basal cell carcinoma Father CHF (congestive heart failure) Diabetes old age onset Grandfather Diabetes old age onset Social History household members: spouse current occupational exposures/hazards: No Smoking Status: Former smoker pack-years: 20 Tobacco: How many years used: 20 how long ago did patient milan (more content not included)... Normal [facility] Plastic Surgery Visit Report on 03-22-2025 Plastic Surgery Visit Report [facility] [address] [place] [address] OFFICE VISIT Date of Service: 03/22/25 MR#: [id number] Acct: [id number] Name: ZACHARY MCDERMOTT Rep #: [id number] : 1935 Provider: Dr. Edgar Carr MD Age/Sex: 89/M Location: [facility] Status: Signed Intake Vital Signs 3 02/19/25 16:04 03/22/25 13:37 Height 5 ft 10 in 5 ft 10 in BP 138/80 H Blood Pressure Location Lt brachial Position Sitting Respiration 18 Pulse 98 Temp 98.0 F Temp Source Temporal Pulse Oximetry (%) 95 Oxygen Delivery Method room air Comment ambulates with cane Intake Visit Reasons: In office procedure-Exc right lat forearm lesion Chief Complaint: Skin lesion right lateral arm lesin Accompanied by: Is patient in pain?: No Allergies lactic acid (From Lac-Hydrin) Allergy (Verified 03/22/25 13:39) Rash Penicillins Allergy (Verified 03/22/25 13:39) Unknown Have you fallen in the past year?: No Nurse's Note: pt here with for in office procedure, excisin right lateral forearm lesion PFSH Medical History Memory deficit Hyperlipidemia MDD (major depressive disorder) Diabetes Chondrosarcoma of ribs Chronic eczema PAF (paroxysmal atrial fibrillation) Cholelithiasis Wears glasses Wears hearing aid Cancer Bruising Walker as ambulation aid Ambulates with cane Easy bruising High cholesterol Former smoker Hypertension Loss of peripheral visual field BPH (benign prostatic hyperplasia) Basal cell carcinoma Cryptogenic stroke 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) Essential (primary) hypertension Left arm weakness Facial droop Dysarthria Acute ischemic stroke Chronic back pain Surgical History History of shoulder surgery Status post laparoscopic cholecystectomy H/O basal cell carcinoma excision Family History Sister Ovarian cancer Diabetes old age onset Mother Basal cell carcinoma Father CHF (congestive heart failure) Diabetes old age onset Grandfather Diabetes old age onset Social History household members: spouse current occupational exposures/hazards: No Smoking Status: Former smoker pack-years: 20 Tobacco: How many years used: 20 how long ago did patient quit smokin years ago; quit sometime in the s alcohol intake: current alcohol intake frequency: holidays/special occasions only substance use type: does not use caffeine: Yes (Occasionally, drinks mostly caffeine free beverages) HPI In office procedure-Exc right lat forearm lesion Details: lidocaine1% with epi [facility] [id number] lot lt 2695 exp Zachary Mcdermott is a delightful 89-year-old male with 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 It was noticed by Dr. Montalvo who referred him to my clinic. The lesion has not yet been biopsied. Patient is not a smoker. He has a history of melanoma and nonmelanoma skin cancers. Discussed sunscreen Current Encounter (DATE OF SURGERY H P UPDATE): I saw and examined the patient this morning in pre- operative holding. We discussed risks and benefits of today's surgery and they would like to proceed. NO CHANGE in health history since last seen and evaluated. Ready to proceed with surgery. I talked the patient about the biopsy results of the right lateral arm lesion. The lesion was inappropriately marked left forearm lesion, but no left forearm lesion was biopsied. Biopsy results with history of atypical squamous perforation. Regardless of biopsy results, the lesion needs to be excised for reevaluation as it could be a squamous cell carcinoma. Lesion was confirmed with the patient today in holding and he was marked and in agreement with the procedure which was excision. We talked about the above and he elected to proceed. Exam Details 1 x 1 cm right lateral arm lesion, with raised center, pearly core with telangiectasias. No axillary lymphadenopathy or epitrochlear lymphadenopathy Above photos from February 2025 The lesion was marked in the office today and confirmed Office Procedures Procedure Time Out Time Out Informed consent given: Yes Consent signed: Yes Time out checklist: patient Time out staff in room: Yes Time out verified: Yes Time out date: 03/22/25 Time out time: 13:45 Coding Level of Care Code Attention Suzanna Diagnoses Neoplasm of uncertain behavior of s (more content not included)... Normal [facility] Surgery Specimen Level Kenneth 03-22-2025 Surgery Specimen Level IV Patient Age/Sex Location Account Attending Physician ZACHARY MCDERMOTT 89/M [facility] [id number] Dr. Edgar Carr MD Specimen: [id number] Received: 03/22/25 Status: ULICES Alfred Num: [id number] Spec Type: Lesion Subm Dr: Dr. Edgar Carr MD HEADER OPERATION: Excision right lateral forearm PRE-OP DIAGNOSIS: Lateral forearm lesion TISSUE SUBMITTED: A- Short proximal, long anterior/lateral, right forearm lesion MICROSCOPIC DIAGNOSIS A. Skin, right lateral forearm, lesion, excision: * Negative for neoplasia. * Solar lentigo. * Scar and associated reactive changes consistent with a previous surgical procedure. MICROSCOPIC DESCRIPTION Slides are reviewed. GROSS DESCRIPTION A. Received in formalin labeled with the patient's name and date of . Designated as short proximal, long anterior/lateral right forearm lesion is a 1.5 x 1.3 cm tinajero ovoid skin shave with slightly irregular borders, excised to a maximum depth of 0.5 cm. There is focal congestion of the deep soft tissue. There is a short suture designated as proximal, and a long suture designated as anterior. The specimen is inked as follows: Anterior half (deep) -greenPosterior half (deep) -blackProximal-redDista l-blue Eccentrically on the epidermal surface is a 0.3 x 0.2 cm pink-red, slightly raised lesion located the following distances from the margins: Anterior-0.8 cmPosterior-0.5 cmProximal-0.6 cmDistal-0.4 cmDeep-0.4 cm The specimen is serially sectioned from anterior to posterior and sequentially in 2 cassettes as follows:A1: Anterior halfA2: Posterior half, including the entirety of the lesion CA 03/23/2024 CPT: 50863 Patient Age/Sex Location Account Attending Physician ZACHARY MCDERMOTT 89/M [facility] [id number] Dr. Edgar Carr MD Signed (signature on file) Dr. Pratima Odom MD 03/28/25 0920 Normal [facility] Comment on above: Performed By: #### L 506.1001, L100.0100, L501.9520, L500.4050 #### [facility] [facility] [address] [place], [id number] CBC W/Diff, Automatedon 06-0 2-2024 Absolute Lymph 1.32 X10 3/uL Normal 0.83-4.51 [facility] Comment on above: Performed By: #### L 100.0100 #### [facility] [address] [place], [id number] Absolute Neut 5.4 X10 3/uL Normal 2.0-7.7 [facility] Comment on above: Performed By: #### L 100.0100 #### [facility] [address] [place], [id number] Basophils/100 WBC (Bld) 0.9 % Normal 0-1 [facility] Comment on above: Performed By: #### L 100.0100 #### [facility] [address] [place], [address] Eosinophils/100 WBC (Bld) 1.8 % Normal 0-5 [facility] Comment on above: Performed By: #### L 100.0100 #### [facility] [address] [place], [address] Erythrocyte distribution width (RBC) [Ratio] 12.7 % Normal 11.6-14.6 [facility] Comment on above: Performed By: #### L 100.0100 #### [facility] [address] [place], [address] Hematocrit (Bld) [Volume fraction] 40.6 % Normal 40-54 [facility] Comment on above: Performed By: #### L 100.0100 #### [facility] [address] [place], [address] Hemoglobin (Bld) [Mass/Vol] 13.4 g/dL Normal 13.0-16.5 [facility] Comment on above: Performed By: #### L 100.0100 #### [facility] [address] [place], [id number] IG% 0.500 Normal 0.0-0.9 [facility] Comment on above: Result Comment: IG% - Immature Granulocytes (promyelocytes, myelocytes and metamyelocytes) > 1% indicates that a LEFT SHIFT is Present. Performed By: #### L 100.0100 #### [facility] [address] [place], [id number] Lymphocytes/100 WBC (Bld) 17.3 % Low 19-41 [facility] Comment on above: Performed By: #### L 100.0100 #### [facility] [address] [place], [address] MCH (RBC) [Entitic mass] 30.7 pg Normal 27.0-32.0 [facility] Comment on above: Performed By: #### L 100.0100 #### [facility] [address] [place], [address] MCHC (RBC) [Mass/Vol] 33.0 g/dL Normal 32-36 [facility] Comment on above: Performed By: #### L 100.0100 #### [facility] [address] [place], [id number] MCV (RBC) [Entitic vol] 93.1 fL Normal 80-94 [facility] Comment on above: Performed By: #### L 100.0100 #### [facility] [address] [place], [address] Monocytes/100 WBC (Bld) 8.8 % Normal 0-10 [facility] Comment on above: Performed By: #### L 100.0100 #### [facility] [address] [place], [address] Neutrophils/100 WBC (Bld) 70.7 % High 47-70 [facility] Comment on above: Performed By: #### L 100.0100 #### [facility] [address] [place], [id number] Nucleated RBC (Bld) [#/Vol] 0 10*3/uL Normal 0-5 [facility] Comment on above: Performed By: #### L 100.0100 #### [facility] [address] [place], [id number] Platelet mean volume (Bld) [Entitic vol] 12.0 fL Normal 6.2-12.0 [facility] Comment on above: Performed By: #### L 100.0100 #### [facility] [address] [place], [id number] Platelets (Bld) [#/Vol] 199 10*3/uL Normal 150-450 [facility] Comment on above: Performed By: #### L 100.0100 #### [facility] [address] [place], [address] RBC (Bld) [#/Vol] 4.36 10*6/uL Low 4.6-6.2 [facility] Comment on above: Performed By: #### L 100.0100 #### [facility] [address] [place], [id number] RDW SD 43.6 fl Normal 35.1-43.9 [facility] Comment on above: Performed By: #### L 100.0100 #### [facility] [address] [place], [id number] WBC (Bld) [#/Vol] 7.7 10*3/uL Normal 4.4-11.[address] [facility] Comment on above: Performed By: #### L 100.0100 #### [facility] [address] [place], [id number] Elastography Parenchyma/Orga non 03-06-2025 Elastography Parenchyma/Organ [facility] Imaging Services [address] [place] [address] Elastography Parenchyma/Organ MR#: [id number] Acct: [id number] Name: ZACHARY MCDERMOTT (Jim) Rep #: [id number] : 1935 M 89 From: Emilia Vargas MD PCP: Dr. Sandoval Montalvo MD Status: REG CLI Study: Elastography Parenchyma/Organ Date of Exam: Exam# [id number] Ordering Dr: Sandoval Montalvo MD PROCEDURE: ELASTOGRAPHY PARENCHYMA/ORGAN, 03/06/2025 REASON FOR EXAM: FATTY LIVER, ELEVATED LIVER ENZYMES COMPARISON: 03/20/2022 TECHNIQUE: Elastography was performed for non-invasive assessment of liver tissue stiffness utilizing a Acteavo S-shear wave imaging unit. FINDINGS: Number of measurements: 15 measurements across 3 regions, 5 measurements per region. US probe: CA1-7A. EQI median: 8.8 kPa EQI median velocity: 1.71 m/s IQR/Med: 9.0-21.5% (kPa) and 5.4-10.7% (m/s). If the IQR/Med is IQR/median >30% (for kPa) or >15% in m/s, the variance in the measurements is a large and the accuracy of the measurement may be in question. US/Elastography Parenchyma/Organ IMPRESSION: 1. Liver stiffness is 8.8 kPa. Per the below 2020 SRU criteria, this rules out compensated advanced chronic liver disease in the absence of other known clinical signs. If there are known clinical signs, further testing may be needed for confirmation. 2. Additional description as above. Assessment is per the Update to the SRU Liver Elastography Consensus Statement (2020) Note that the above assessment of liver fibrosis is vendor-neutral and intended for use in fibrosis related to viral etiologies and non-alcoholic fatty-liver disease (NAFLD); in causes other than viral hepatitis and NAFLD, the cutoff values are currently not well established. In some patients with NAFLD, the cutoff values for cACLD may be lower (7-9 kPa). Note also that in the setting of elevated LFTs, nonfasting or vascular congestion, the stage of lifer fibrosis may be overestimated. Previous SRU reference values: <1.37 m/s (5.7kPa): No to mild fibrosis 1.37 m/s - 2.2 m/s: Moderate to severe fibrosis >2.2 m/s (15kPa): Significant fibrosis / cirrhosis Reading Location: [id number] CC: Dr. Sandoval Montalvo MD [employer] Supervisor: Signed Normal [facility] Abdomen Limitedon 02-20-2025 Abdomen Limited [facility] Imaging Services [address] [id number] Abdomen Limited MR#: [id number] Acct: [id number] Name: ZACHARY MCDERMOTT (Jim) Rep #: [id number] : 1935 M 89 From: Ashkan barrett MD PCP: Dr. Sandoval Montalvo MD Status: REG CLI Study: Abdomen Limited Date of Exam: 02/20/25 Exam# [id number] Ordering Dr: Sandoval Montalvo MD PROCEDURE: ABDOMEN LIMITED 02/20/2025 REASON FOR EXAM: ABNORMAL LEVELS OF OTHER SERUM ENZYMES TECHNIQUE: Complete abdominal ultrasound diaz-scale images with color doppler. PATIENT PREPARATION: Per protocol COMPARISON: None FINDINGS: Liver: Diffusely echogenic suggesting fatty infiltration. Gallbladder: Surgically absent. Common bile duct: Normal measuring 4 mm. Pancreas: With calcifications and dilated pancreatic duct. Correlation with a CT scan is recommended.. Kidneys: The right kidney measures 10.9 cm x 5.1 cm 5.1 cm. There is a 7.8 cm x 6.6 cm x 5.6 cm cyst in the mid inferior pole of the kidney. US/Abdomen Limited IMPRESSION: Status post cholecystectomy. Heterogeneous appearance of the Reading Location: [id number] CC: Dr. Sandoval Montalvo MD [employer] Supervisor: Signed Normal [facility] Plastic Surgery Visit Report on 02-19-2025 Plastic Surgery Visit Report [facility] Plastic Reconstructive Surgery [address], [address] [place] [id number] OFFICE VISIT Date of Service: 02/19/25 MR#: [id number] Acct: [id number] Name: ZACHARY MCDERMOTT (Jim) Rep #: [id number] : 1935 Provider: Dr. Edgar Carr MD Age/Sex: 89/M Location: [facility] Status: Signed Intake Vital Signs 3 01/08/25 09:50 02/19/25 16:04 Height 5 ft 10 in 5 ft 10 in Weight: 180 lb BMI 25.8 BP 169/87 H 128/78 H Blood Pressure Location Lt brachial Rt brachial Position Sitting Sitting Respiration 18 Pulse 94 109 H Pulse Source Monitor Monitor Pulse Oximetry (%) 95 Oxygen Delivery Method room air Intake Visit Reasons: SKIN LESION Chief Complaint: Skin lesion Is patient in pain?: No Allergies lactic acid (From Lac-Hydrin) Allergy (Verified 02/19/25 15:54) Rash Penicillins Allergy (Verified 02/19/25 15:54) Unknown Medications 3 ???Medication ???Instructions ???Recorded ???Confirmed ???Type alfuzosin 10 mg tablet,extended 10 mg PO DAILY prostate 10/02/20 0 02/19/25 History release 24 hr atorvastatin 80 mg tablet 80 mg PO QHS 03/15/21 02/19/25 His tory lisinopril 40 mg tablet 40 mg PO DAILY BP 03/15/21 5 History dutasteride 0.5 mg capsule 0.5 mg PO DAILY 03/18/21 02/19/25 History multivitamin 1 tab PO DAILY 03/18/21 02/19/25 H istory apixaban 2.5 mg tablet (Eliquis) 2.5 mg PO BID Please reduce dose 0 05/18/23 02/19/25 Rx to 2.5 mg twice daily #60 tabs latanoprost 0.005 % eye drops 1 drp ophthalmic (eye) DAILY 03/2802/19/25 History melatonin 3 mg capsule 3 mg PO HS PRN 03/28/24 02/19/25 H istory citalopram 20 mg tablet 20 mg PO DAILY #90 tabs 11/08/24 0 02/19/25 Rx levothyroxine 25 mcg tablet mcg PO DAILY 11/08/24 02/19/25 His tory insulin glargine U-300 conc 300 55 unit subcut BID 12/29/24 History unit/mL (3 mL) subcutaneous pen (Toujeo Max U-300 SoloStar) ofloxacin 0.3 % eye drops 1 drp ophthalmic (eye) 4X/DAY 12/1002/19/25 History Have you fallen in the past year?: No Nurse's Note: pt with raised red spot on left outer forearm, stated it was a scab he picked off. [facility] Medical History Memory deficit Hyperlipidemia MDD (major depressive disorder) Diabetes Chondrosarcoma of ribs Chronic eczema PAF (paroxysmal atrial fibrillation) Cholelithiasis Wears glasses Wears hearing aid Cancer Bruising Walker as ambulation aid Ambulates with cane Easy bruising High cholesterol Former smoker Hypertension Loss of peripheral visual field BPH (benign prostatic hyperplasia) Basal cell carcinoma Cryptogenic stroke 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) Essential (primary) hypertension Left arm weakness Facial droop Dysarthria Acute ischemic stroke Chronic back pain Surgical History History of shoulder surgery Status post laparoscopic cholecystectomy H/O basal cell carcinoma excision Family History Sister Ovarian cancer Diabetes old age onset Mother Basal cell carcinoma Father CHF (congestive heart failure) Diabetes old age onset Grandfather Diabetes old age onset Social History household members: spouse current occupational exposures/hazards: No Smoking Status: Former smoker pack-years: 20 Tobacco: How many years used: 20 how long ago did patient quit smokin years ago; quit sometime in the s alcohol intake: current alcohol intake frequency: holidays/special occasions only substance use type: does not use caffeine: Yes (Occasionally, drinks mostly caffeine free beverages) HPI SKIN LESION Details: Zachary Mcdermott is a delightful 89-year-old male with 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 It was noticed by Dr. Montalvo who referred him to my clinic. The lesion has not yet been biopsied. Patient is not a smoker. He has a history of melanoma and nonmelanoma skin cancers. Discussed sunscreen ROS General General: Yes good health and fatigue; No fever(s) or weight loss HENMT HENMT: No rhinitis, sore throat/mouth sore, nasal congestion, contacts or glaucoma Endo Endocrine: No thyroid disease, polydipsia, heat intolerance, cold intolerance, hepatitis or excessive urine Skin Skin: Yes Bleeding, bruising and changing moles; No suspicious lesion Musc Musculoskeletal: No joint pain, joint stiffness, muscle weakness, back p (more content not included)... Normal [facility] Surgery Specimen Level Kenneth 02-19-2025 Surgery Specimen Level IV Patient Age/Sex Location Account Attending Physician ZACHARY MCDERMOTT 89/M LABSPEC [id number] Dr. Edgar Carr MD Specimen: Received: 02/19/25 Status: ULICES Alfred Num: [id number] Spec Type: Lesion Subm Dr: Dr. Edgar Carr MD THIS IS A CORRECTED REPORT 03/28/25 HEADER OPERATION: Biopsy PRE-OP DIAGNOSIS: Biopsy TISSUE SUBMITTED: A- Right forearm lesion MICROSCOPIC DIAGNOSIS A. Skin, right forearm, shave biopsy: * Atypical squamous proliferation (See note) Note: Sections show a superficial piece of atypical squamous proliferation in which the base/and or entire lesion is not seen which precludes further evaluation of the lesion. If this is part of a larger or clinically suspicious lesion, additional deeper sampling and/or complete excision is recommended. The slide is reviewed with Nilo Recinos MD in consultation. COMMENT This corrected report is proxy signed by Dr Caleb Odom for Dr Miguel Angel Mcfarlane. MICROSCOPIC DESCRIPTION Slides are reviewed. GROSS DESCRIPTION A. Received in formalin in a container labeled with the patient's name, date of , and right forearm is an unoriented and irregular skin shave measuring 0.6 x 0.5 cm with a depth of 0.1 cm. The white-dale epidermis exhibits an ill-defined 0.6 x 0.5 x 0.2 cm roughened nodule that abuts the peripheral margins. The deep margin is inked green, and it is trisected to reveal that the nodule appears to abut the deep margin. Submitted entirely in A1. [facility] 02-20-2025 CPT:85727 Patient Age/Sex Location Account Attending Physician TOREYZACHARYMiguel Angel BAILON 89/M LABSPEC [id number] Dr. Edgar Carr MD Signed (signature on file) Dr. Pratima Odom MD 04/03/25 5985 Normal [facility] Comment on above: Performed By: #### L 501.9520 #### [facility] [address] [place] [address]. [place], [address] Hepatitis Panel Acuteon 05-0 COMMENT Comment Normal . [facility] Comment on above: Result Comment: Not infected with HCV unless early or acute infection is suspected (which may be delayed in an immunocompromised individual), or other evidence exists to indicate HCV infection. Performed at: [facility] [address] [id number] Manager Latin: oTm Dos Santos PhD, Phone: [phone] Performed By: #### L 3000.0375 #### [facility] [address] [place], [address] HEP B CORE,IgM Negative Normal Negative [facility] Comment on above: Performed By: #### L 3000.0375 #### [facility] [address] [place], [address] HEP B SURF AG Negative Normal Negative [facility] Comment on above: Performed By: #### L 3000.0375 #### [facility] [address] [place], [address] HEP C VIRUS AB Non-Reactive Normal Non Reactive [facility] Comment on above: Performed By: #### L 3000.0375 #### [facility] [address] [place], [address] HEPATITIS A-IgM Negative Normal Negative [facility] Comment on above: Result Comment: A ne gative anti-HAV IgM result suggests no recent or current HAV infection. Performed By: #### L 3000.0375 #### [facility] [address] [place], [address] CBC W/Diff, Automatedon 05-0 -2024 Absolute Lymph 1.52 X10 3/uL Normal 0.83-4.51 [facility] Comment on above: Performed By: #### L 506.1001, L100.0100, L501.9520, L500.4050 #### [facility] [address] [place], [address] Absolute Neut 5.6 X10 3/uL Normal 2.0-7.7 [facility] Comment on above: Performed By: #### L 506.1001, L100.0100, L501.9520, L500.4050 #### [facility] [address] [place], [address] Basophils/100 WBC (Bld) 1.0 % Normal 0-1 [facility] Comment on above: Performed By: #### L 506.1001, L100.0100, L501.9520, L500.4050 #### [facility] [address] [place], [address] Eosinophils/100 WBC (Bld) 1.7 % Normal 0-5 [facility] Comment on above: Performed By: #### L 506.1001, L100.0100, L501.9520, L500.4050 #### [facility] [address] [place], [address] Erythrocyte distribution width (RBC) [Ratio] 12.9 % Normal 11.6-14.6 [facility] Comment on above: Performed By: #### L 506.1001, L100.0100, L501.9520, L500.4050 #### [facility] [address] [place], [address] Hematocrit (Bld) [Volume fraction] 41.5 % Normal 40-54 [facility] Comment on above: Performed By: #### L 506.1001, L100.0100, L501.9520, L500.4050 #### [facility] [address] [place], [address] Hemoglobin (Bld) [Mass/Vol] 13.7 g/dL Normal 13.0-16.5 [facility] Comment on above: Performed By: #### L 506.1001, L100.0100, L501.9520, L500.4050 #### [facility] [address] [place], [address] IG% 0.500 Normal 0.0-0.9 [facility] Comment on above: Result Comment: IG% - Immature Granulocytes (promyelocytes, myelocytes and metamyelocytes) > 1% indicates that a LEFT SHIFT is Present. Performed By: #### L 506.1001, L100.0100, L501.9520, L500.4050 #### [facility] [address] [place], [address] Lymphocytes/100 WBC (Bld) 18.6 % Low 19-41 [facility] Comment on above: Performed By: #### L 506.1001, L100.0100, L501.9520, L500.4050 #### [facility] [address] [place], [address] MCH (RBC) [Entitic mass] 30.4 pg Normal 27.0-32.0 [facility] Comment on above: Performed By: #### L 506.1001, L100.0100, L501.9520, L500.4050 #### [facility] [address] [place], [address] MCHC (RBC) [Mass/Vol] 33.0 g/dL Normal 32-36 [facility] Comment on above: Performed By: #### L 506.1001, L100.0100, L501.9520, L500.4050 #### [facility] [address] [place], [address] MCV (RBC) [Entitic vol] 92.2 fL Normal 80-94 [facility] Comment on above: Performed By: #### L 506.1001, L100.0100, L501.9520, L500.4050 #### [facility] [address] [place], [address] Monocytes/100 WBC (Bld) 9.7 % Normal 0-10 [facility] Comment on above: Performed By: #### L 506.1001, L100.0100, L501.9520, L500.4050 #### [facility] [address] [place], [address] Neutrophils/100 WBC (Bld) 68.5 % Normal 47-70 [facility] Comment on above: Performed By: #### L 506.1001, L100.0100, L501.9520, L500.4050 #### [facility] [address] [place], [address] Nucleated RBC (Bld) [#/Vol] 0 10*3/uL Normal 0-5 [facility] Comment on above: Performed By: #### L 506.1001, L100.0100, L501.9520, L500.4050 #### [facility] [address] [place], [address] Platelet mean volume (Bld) [Entitic vol] 12.9 fL High 6.2-12.0 [facility] Comment on above: Performed By: #### L 506.1001, L100.0100, L501.9520, L500.4050 #### [facility] [address] [place], [address] Platelets (Bld) [#/Vol] 203 10*3/uL Normal 150-450 [facility] Comment on above: Performed By: #### L 506.1001, L100.0100, L501.9520, L500.4050 #### [facility] [address] [place], [address] RBC (Bld) [#/Vol] 4.50 10*6/uL Low 4.6-6.2 [facility] Comment on above: Performed By: #### L 506.1001, L100.0100, L501.9520, L500.4050 #### [facility] [address] [place], [address] RDW SD 43.5 fl Normal 35.1-43.9 [facility] Comment on above: Performed By: #### L 506.1001, L100.0100, L501.9520, L500.4050 #### [facility] [address] [place], [address] WBC (Bld) [#/Vol] 8.2 10*3/uL Normal 4.4-11.[address] [facility] Comment on above: Performed By: #### L 506.1001, L100.0100, L501.9520, L500.4050 #### [facility] [address] [place], [address] Comprehensive Metabolic Prof ilon 02-08-2025 Albumin [Mass/Vol] 3.9 g/dL Normal 3.4-4.[address] [facility] Comment on above: Performed By: #### L 506.1001, L100.0100, L501.9520, L500.4050 #### [facility] [address] [place], [address] Albumin/Globulin [Mass ratio] 1.4 {ratio} Normal 0.9-2.4 [facility] Comment on above: Performed By: #### L 506.1001, L100.0100, L501.9520, L500.4050 #### [facility] [address] [place], [address] ALK PHOS 73 U/L Normal 40-129 [facility] Comment on above: Performed By: #### L 506.1001, L100.0100, L501.9520, L500.4050 #### [facility] [address] [place], [address] ALT [Catalytic activity/Vol] 71 U/L High <=46 [facility] Comment on above: Result Comment: Hemo lysis present, Results??could be affected. ?? Performed By: #### L 506.1001, L100.0100, L501.9520, L500.4050 #### [facility] [address] [place], [address] AST [Catalytic activity/Vol] 49 U/L High <=37 [facility] Comment on above: Result Comment: Hemo lysis present, Results??could be affected. ?? Performed By: #### L 506.1001, L100.0100, L501.9520, L500.4050 #### [facility] [address] [place], [address] Bilirubin [Mass/Vol] 0.51 mg/dL Normal 0.00-1.30 [facility] Comment on above: Performed By: #### L 506.1001, L100.0100, L501.9520, L500.4050 #### [facility] [address] [place], [address] BUN/CRE 8.2 RATIO Low 10-20 [facility] Comment on above: Performed By: #### L 506.1001, L100.0100, L501.9520, L500.4050 #### [facility] [address] [place], [address] Calcium [Mass/Vol] 8.8 mg/dL Normal 7.6-11.[address] [facility] Comment on above: Performed By: #### L 506.1001, L100.0100, L501.9520, L500.4050 #### [facility] [address] [place], [address] Chloride [Moles/Vol] 107 mmol/L Normal 98-108 [facility] Comment on above: Performed By: #### L 506.1001, L100.0100, L501.9520, L500.4050 #### [facility] [address] [place], [address] CO2 [Moles/Vol] 23.3 mmol/L Normal 21.0-32.0 [facility] Comment on above: Performed By: #### L 506.1001, L100.0100, L501.9520, L500.4050 #### [facility] [address] [place], [address] Creatinine [Mass/Vol] 1.02 mg/dL Normal 0.70-1.20 [facility] Comment on above: Performed By: #### L 506.1001, L100.0100, L501.9520, L500.4050 #### [facility] [address] [place], [address] GAP 11 Normal 5-15 [facility] Comment on above: Performed By: #### L 506.1001, L100.0100, L501.9520, L500.4050 #### [facility] [address] [place], [address] GFR/1.73 sq M.predicted among non-blacks MDRD (S/P/Bld) [Vol rate/Area] 70 mL/min/{1.73_m2} Normal >60 [facility] Comment on above: Result Comment: mL/m in/1.73m2 CKD-EPI Creatinine Equation (2020) Performed By: #### L 506.1001, L100.0100, L501.9520, L500.4050 #### [facility] [address] [place], [address] Globulin (S) [Mass/Vol] 2.7 g/dL Normal 2.2-4.2 [facility] Comment on above: Performed By: #### L 506.1001, L100.0100, L501.9520, L500.4050 #### [facility] [address] [place], [address] Glucose [Mass/Vol] 266 mg/dL High 70-[address] [facility] Comment on above: Performed By: #### L 506.1001, L100.0100, L501.9520, L500.4050 #### [facility] [address] [place], [address] Potassium [Moles/Vol] 4.4 mmol/L Normal 3.3-5.1 [facility] Comment on above: Result Comment: Hemo lysis present, Results??could be affected. ?? Performed By: #### L 506.1001, L100.0100, L501.9520, L500.4050 #### [facility] [address] [place], [address] Sodium [Moles/Vol] 140 mmol/L Normal 133-[address] [facility] Comment on above: Performed By: #### L 506.1001, L100.0100, L501.9520, L500.4050 #### [facility] [address] [place], [address] T PROT 6.7 g/dL Normal 5.9-8.4 [facility] Comment on above: Performed By: #### L 506.1001, L100.0100, L501.9520, L500.4050 #### [facility] [address] [place], [address] Urea nitrogen [Mass/Vol] 8 mg/dL Normal 4-19 [facility] Comment on above: Performed By: #### L 506.1001, L100.0100, L501.9520, L500.4050 #### [facility] [address] [place], [address] Thyroid Stim Hormone (TSH)on 02-08-2025 TSH 2.360 uIU/mL Normal 0.300-4.200 [facility] Comment on above: Performed By: #### L 506.1001, L100.0100, L501.9520, L500.4050 #### [facility] [address] [place], [address] Vitamin D,25 Hydroxyon 02-08 Vitamin D 25-OH 10.3 ng/mL Low 30-100 [facility] Comment on above: Result Comment: Sharonda min D Status Deficiency: <20 ng/mL (50nmol/L) Insufficiency: 20-30 ng/mL (50-75 nmol/L) Sufficiency: 30-100 ng/mL (75-250 nmol/L) Toxicity: >100 ng/mL (>250 nmol/L) Performed By: #### L 506.1001, L100.0100, L501.9520, L500.4050 #### [facility] [address] [place], [place], [address] MR/BMS.BPon 01-08-2025 MR/BMS.BP [address], [address] [place] [address] OFFICE VISIT Date of Service: 01/08/25 MR#: [id number] Acct: [id number] Name: ZACHARY MCDERMOTT PeaceDebbie BAILON Rep #: [id number] : 1935 Provider: Dr. Vincent Alvarado se, DO Age/Sex: 89/M Location: [facility] Status: Signed Intake Vital Signs 11/08/24 09:55 12/29/24 07:41 01/08/25 09:50 Height 5 ft 10 in 5 ft 10 in 5 ft 10 in BP 169/87 H Blood Pressure Location Lt brachial Position Sitting Pulse 94 Pulse Source Monitor BP Intake Visit Reasons: 2 M FU Mobility Manager Required: No Accompanied by: Self Is patient in pain?: No Allergies lactic acid (From Lac-Hydrin) Allergy (Verified 01/08/25 09:53) Rash Penicillins Allergy (Verified 01/08/25 09:53) Unknown Medications ???Medication ???Instructions ???Recorded ???Confirmed ???Type alfuzosin 10 mg tablet,extended 10 mg PO DAILY prostate 10/02/20 0 01/08/25 History release 24 hr atorvastatin 80 mg tablet 80 mg PO QHS 03/15/21 01/08/25 His tory lisinopril 40 mg tablet 40 mg PO DAILY BP 03/15/21 5 History dutasteride 0.5 mg capsule 0.5 mg PO DAILY 03/18/21 01/08/25 History multivitamin 1 tab PO DAILY 03/18/21 01/08/25 H istory apixaban 2.5 mg tablet (Eliquis) 2.5 mg PO BID Please reduce dose 0 05/18/23 01/08/25 Rx to 2.5 mg twice daily #60 tabs latanoprost 0.005 % eye drops 1 drp ophthalmic (eye) DAILY 03/2801/08/25 History melatonin 3 mg capsule 3 mg PO HS PRN 03/28/24 01/08/25 H istory citalopram 20 mg tablet 20 mg PO DAILY #90 tabs 11/08/24 0 01/08/25 Rx levothyroxine 25 mcg tablet mcg PO DAILY 11/08/24 01/08/25 His tory insulin glargine U-300 conc 300 55 unit subcut BID 12/29/24 History unit/mL (3 mL) subcutaneous pen (Toujeo Max U-300 SoloStar) ofloxacin 0.3 % eye drops 1 drp ophthalmic (eye) 4X/DAY 12/1001/08/25 History Have you fallen in the past year?: No PFSH Medical History (Updated 01/08/25 @ 10:[address] 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) Essential (primary) hypertension Left arm weakness Facial droop Dysarthria Acute ischemic stroke Chronic back pain Surgical History History of shoulder surgery Status post laparoscopic cholecystectomy H/O basal cell carcinoma excision Family History Sister Ovarian cancer Diabetes old age onset Mother Basal cell carcinoma Father CHF (congestive heart failure) Diabetes old age onset Grandfather Diabetes old age onset Social History household members: spouse current occupational exposures/hazards: No Smoking Status: Former smoker pack-years: 20 Tobacco: How many years used: 20 how long ago did patient quit smokin years ago; quit sometime in the s alcohol intake: current alcohol intake frequency: holidays/special occasions only substance use type: does not use caffeine: Yes (Occasionally, drinks mostly caffeine free beverages) HPI History of Present Illness History provided by: patient HPI: Mark Mcdermott is an 89 year old male who presents today for follow up evaluation. Patient does respond very slowly to questioning. Patient reports that his has been sick this past week so he has be en Up and down. States that his had a UTI at the start of the week, and by the end of the week was hospitalized with asthma. She just got home yesterday. Has been very stressed with this. Prior to this, had been doing alright. Has had his daughter and daughter in law coming to help in recent past. Feels less depressed than he had been. Recounts reading a tragedy in the paper and feeling kadie about his own life. Feels like his health is pretty good. Reports to having some improved blood sugar readings. Does still tired much of the time. Sleep remains somewhat broken but did sleep well last night. Appetite has been stable, and does feel like diet is improved. Does live at [facility] in independent living with his . Denies any side effects from citalopram increase at this time. Unsure how much benefit he has noticed, but I do notice some mildly brighter affect. Memory has been alright. Recently had cataract surgery in recent past. Did comp (more content not included)... Normal [facility] CREATININE FINGERSTICKon CREATININE WB < 1.0 Normal 0.70-1.30 [facility] Comment on above: Performed By: #### L 9100.0200 #### [facility] [address] [place], [address] EGFR WB > 60.0000 Normal >60 [facility] Comment on above: Performed By: #### L 9100.0200 #### [facility] [address] [place], [address] Chest WITH Contraston 2024 Chest WITH Contrast [facility] Imaging Services [address] [place] [address] Chest WITH Contrast MR#: [id number] Acct: [id number] Name: ZACHARY MCDERMOTT (Jim) Rep #: [id number] : 1935 M 89 From: Ashkan barrett MD PCP: Dr. Sandoval Montalvo MD Status: DEP CLI Study: Chest WITH Contrast Date of Exam: 01/03/25 Exam# [id number] Ordering Dr: Andres Shipley DO PROCEDURE: CHEST WITH CONTRAST 01/03/2025 REASON FOR EXAM: 89-year-old male, FOLLOW UP CW SARCOMA TECHNIQUE: Axial chest CT with intravenous contrast. Coronal and Sagittal reconstruction series were provided. One or more dose reduction techniques were used (e.g., Automated exposure control, adjustment of the mA and/or kV according to patient size, use of iterative reconstruction technique). CONTRAST: Isovue-300 VOLUME: 100mL RADIATION DOSE SUMMARY: CTDlvol: 27 mGy DLP: 440 mGycm COMPARISON: CT chest 07/04/2024. FINDINGS: Hardware: None Increasing size of the previously seen soft tissue mass in the anterior aspect of the upper chest wall with a coarse calcification within it causing underlying destruction of the 2nd 3rd and 4th ribs. This extends into the costochondral junction medially with the extension into the anterior aspect of the medial right upper lobe. This has increased in size as compared to prior study. Lymph nodes: No significant mediastinal lymph nodes are seen. No hilar lymph nodes are seen. Heart and Vasculature: The heart is not enlarged. No coronary calcification is present. Lungs and Airways: Mild emphysematous changes are present. Pleura: Unremarkable Upper Abdomen: Status post cholecystectomy. Bones: Degenerative changes of the thoracic spine. CT/Chest WITH Contrast IMPRESSION: Increasing size of the right anterior chest wall mass with destruction of the costochondral junction medially and adjacent ribs. The remainder of the examination is unchanged. Reading Location: [facility] CC: Dr. Andres Shipley DO; Dr. Sandoval Montalvo MD [employer]ing [employer]pensing Supervisor: Signed Normal [facility] Cardiology Visit Reporton Cardiology Visit Report [facility] [address] [place] [address] OFFICE VISIT Date of Service: 12/29/24 MR#: [id number] Acct: [id number] Name: ZACHARY MCDERMOTT (Jim) Rep #: [id number] : 1935 Provider: LORETA Tse Age/Sex: 89/M Location: [facility] Status: Signed HPI HPI History of Present Illness Details: Zachary Mcdermott is an 89 -year-old man that presents to the office today for a cardiovascular visit. He was admitted to the hospital in September 2020 with a right posterior cerebral artery ischemic stroke. He does have a history of hypertension. He received TPA and was transferred to [facility] due to the fact that he became bradycardic and had some more neurological changes. A transesophageal echocardiogram was performed which demonstrated an ejection fraction of 60 to 65%, no wall motion abnormalities, no PFO, and no thrombus was noted. There was grade 3 plaquing noted on the descending aorta. He did unfortunately suffer left homonymous hemianopsia. His 30 day event monitor did demonstrate paroxysmal atrial fib. He is on Eliquis. Patient had an echocardiogram done in December 2022 that did demonstrate a pectoral mass. 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 He was referred to hematology oncology. It was felt that based on his age and frail elderly that medical management and palliative care would be his best option. Pt does have SOB with exertion but does not feel that it worse than before. He does not have any chest pain/heaviness. He does not have any palpitations. He does not have any lightheadedness/dizzine ss. He does not have any edema. Intake Vital Signs 11/08/24 09:55 12/29/24 07:41 12/29/24 10:07 Height 5 ft 10 in 5 ft 10 in Weight: 172 lb 183 lb BMI 24.7 26.2 BP 153/74 H 158/97 H 130/80 H Blood Pressure Location Lt brachial Lt brachial Position Sitting Sitting Respiration 16 18 Pulse 102 H 91 Pulse Source Monitor Monitor Pulse Oximetry (%) 93 Intake Visit Reasons: 1 Y FU Mobility Manager Required: No Is patient in pain?: No Allergies lactic acid (From Lac-Hydrin) Allergy (Verified 12/29/24 09:47) Rash Penicillins Allergy (Verified 12/29/24 09:47) Unknown Medications ???Medication ???Instructions ???Recorded ???Confirmed ???Type alfuzosin 10 mg tablet,extended 10 mg PO DAILY prostate 10/02/20 0 11/08/24 History release 24 hr atorvastatin 80 mg tablet 80 mg PO QHS 03/15/21 11/08/24 His tory lisinopril 40 mg tablet 40 mg PO DAILY BP 03/15/21 5 History dutasteride 0.5 mg capsule 0.5 mg PO DAILY 03/18/21 11/08/24 History multivitamin 1 tab PO DAILY 03/18/21 11/08/24 H istory apixaban 2.5 mg tablet (Eliquis) 2.5 mg PO BID Please reduce dose 0 05/18/23 11/08/24 Rx to 2.5 mg twice daily #60 tabs latanoprost 0.005 % eye drops 1 drp ophthalmic (eye) DAILY 03/2811/08/24 History melatonin 3 mg capsule 3 mg PO HS PRN 03/28/24 11/08/24 H istory citalopram 20 mg tablet 20 mg PO DAILY #90 tabs 11/08/24 0 11/08/24 Rx levothyroxine 25 mcg tablet mcg PO DAILY 11/08/24 11/08/24 His tory insulin glargine U-300 conc 300 55 unit subcut BID 12/29/24 History unit/mL (3 mL) subcutaneous pen (Toujeo Max U-300 SoloStar) ofloxacin 0.3 % eye drops 1 drp ophthalmic (eye) 4X/DAY 12/1012/29/24 History Ejection fraction %: 55 Have you fallen in the past year?: No Nurse's Note: no medication list, there are new medications, does not know name. was encouraged to call with updated list. [facility] Medical History (Updated 12/29/24 @ 10:08 by Caitlin Thomas PA, PA) Hyperlipidemia MDD (major depressive disorder) Diabetes Chondrosarcoma of ribs Chronic eczema PAF (paroxysmal atrial fibrillation) Cholelithiasis Wears glasses Wears hearing aid Cancer Bruising Walker as ambulation aid Ambulates with cane Easy bruising High cholesterol Former smoker Hypertension Loss of peripheral visual field BPH (benign prostatic hyperplasia) Basal cell carcinoma Cryptogenic stroke 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) Essential (primary) hypertension Left arm weakness Facial droop Dysarthria Acute ischemic stroke Chronic back pain Surgical History History of shoulder surgery Status post laparoscopic cholecystectomy H/O basal cell carcinoma excision Family History Sister Ovarian cancer Diabetes old age onset Mother Basal cell carcinoma Father CHF (congestive heart failure) Diabetes old age onset Grandfather Diabetes old age onset Social History ... Normal [facility] Knee 1 or 2 Viewson 12-05-19 Knee 1 or 2 Views [facility] Imaging Services [address], [place] [address] Knee 1 or 2 Views MR#: [id number] Acct: [id number] Name: ZACHARY MCDERMOTT PeaceDebbie BAILON Rep #: [id number] : 1935 M 89 From: Gene Garcia i DO PCP: Dr. Sandoval Montalvo MD Status: REG CLI Study: Knee 1 or 2 Views Date of Exam: 12/05/24 Exam# [id number] Ordering Dr: Sandoval Montalvo MD PROCEDURE: Right knee radiographs, two views REASON FOR EXAM: Primary osteoarthritis TECHNIQUE: Two views of the right knee were obtained. COMPARISON: 01/15/2021 FINDINGS: Two views of the right knee were obtained. The bones are osteopenic. No acute fracture or dislocation of the right knee. Moderate tricompartmental degenerative changes, slightly progressed. No sizeable joint effusion. RAD/Knee 1 or 2 Views IMPRESSION: Osteopenia. No acute bony abnormality of the right knee, greatest involving the medial compartment. Slightly progressed moderate tricompartmental degenerative changes of the right knee. [facility] CC: Dr. Sandoval Montalvo MD Mixing [employer]pensing Supervisor: Signed Normal [facility] Shoulder min 2 Viewson 12-05 Shoulder min 2 Views [facility] Imaging Services [address] [place] [address] Shoulder min 2 Views MR#: [id number] Acct: [id number] Name: ZACHARY MCDERMOTT (Jim) Rep #: [id number] : 1935 M 89 From: Gene Garcia i DO PCP: Dr. Sandoval Montalvo MD Status: REG CLI Study: Shoulder min 2 Views Date of Exam: 12/05/24 Exam# [id number] Ordering Dr: Sandoval Montlavo MD PROCEDURE: Left shoulder radiographs, four views REASON FOR EXAM: Left shoulder pain TECHNIQUE: Four views of the left shoulder were obtained. COMPARISON: None. FINDINGS: Four views of the left shoulder were obtained. The bones are osteopenic. Left hilar calcified granulomas are present. Included left lung otherwise clear. An electronic device projects over the lateral soft tissues of the upper left arm. No acute fracture or dislocation of the left shoulder. Mild degenerative change left acromioclavicular joint. The subacromial space is maintained. Wyejbrpf-ec-tkvydb degenerative change of the left glenohumeral joint. RAD/Shoulder min 2 Views IMPRESSION: Osteopenia. No acute bony abnormality of the left shoulder. Mild degenerative change of the left acromioclavicular joint. Moderate/severe degenerative change left glenohumeral joint. Reading [facility] CC: Dr. Sandoval Montalvo MD [employer]pensing Supervisor: Signed Normal [facility] Shoulder min 2 Views [facility] Imaging Services [address] [place], [place] [address] Shoulder min 2 Views MR#: [id number] Acct: [id number] Name: ZACHARY MCDERMOTT (Jim) Rep #: [id number] : 1935 M 89 From: Ashkan barrett MD PCP: Dr. Sandoval Montalvo MD Status: REG CLI Study: Shoulder min 2 Views Date of Exam: 12/05/24 Exam# [id number] Ordering Dr: Sandoval Montalvo MD PROCEDURE: SHOULDER MIN 2 VIEWS REASON FOR EXAM: Right shoulder pain. TECHNIQUE: Four views were obtained. COMPARISON: None. FINDINGS: RIGHT SHOULDER: No fracture. No suspicious bone lesion. Mild degree of joint space narrowing of the glenohumeral joint. Mild degree of degenerative changes of the acromioclavicular joint. Soft tissues are unremarkable. RAD/Shoulder min 2 Views IMPRESSION: DEGENERATIVE OSTEOARTHROSIS. NO ACUTE FINDINGS. Reading Location: [id number] CC: Dr. Sandoval Montalvo MD [employer] Supervisor: Signed Normal [facility] CBC W/Diff, Automatedon 11-11 Absolute Lymph 1.69 X10 3/uL Normal 0.83-4.51 [facility] Comment on above: Performed By: #### L 100.0100, L506.1000, L501.9520, L500.4050 #### [facility] Laboratory [address] [place], [address] Absolute Neut 6.5 X10 3/uL Normal 2.0-7.7 [facility] Comment on above: Performed By: #### L 100.0100, L506.1000, L501.9520, L500.4050 #### [facility] [address] [place], [address] Basophils/100 WBC (Bld) 0.6 % Normal 0-1 [facility] Comment on above: Performed By: #### L 100.0100, L506.1000, L501.9520, L500.4050 #### [facility] [address] [place], [address] Eosinophils/100 WBC (Bld) 1.1 % Normal 0-5 [facility] Comment on above: Performed By: #### L 100.0100, L506.1000, L501.9520, L500.4050 #### [facility] [address] [place], [address] Erythrocyte distribution width (RBC) [Ratio] 13.0 % Normal 11.6-14.6 [facility] Comment on above: Performed By: #### L 100.0100, L506.1000, L501.9520, L500.4050 #### [facility] [address] [place], [address] Hematocrit (Bld) [Volume fraction] 42.9 % Normal 40-54 [facility] Comment on above: Performed By: #### L 100.0100, L506.1000, L501.9520, L500.4050 #### [facility] [address] [place], [address] Hemoglobin (Bld) [Mass/Vol] 14.4 g/dL Normal 13.0-16.5 [facility] Comment on above: Performed By: #### L 100.0100, L506.1000, L501.9520, L500.4050 #### [facility] [address] [place], [address] IG% 0.600 Normal 0.0-0.9 [facility] Comment on above: Result Comment: IG% - Immature Granulocytes (promyelocytes, myelocytes and metamyelocytes) > 1% indicates that a LEFT SHIFT is Present. Performed By: #### L 100.0100, L506.1000, L501.9520, L500.4050 #### [facility] [address] [place], [address] Lymphocytes/100 WBC (Bld) 18.3 % Low 19-41 [facility] Comment on above: Performed By: #### L 100.0100, L506.1000, L501.9520, L500.4050 #### [facility] Laboratory [address] [place], [address] MCH (RBC) [Entitic mass] 30.8 pg Normal 27.0-32.0 [facility] Comment on above: Performed By: #### L 100.0100, L506.1000, L501.9520, L500.4050 #### [facility] Laboratory [address] [place], [address] MCHC (RBC) [Mass/Vol] 33.6 g/dL Normal 32-36 [facility] Comment on above: Performed By: #### L 100.0100, L506.1000, L501.9520, L500.4050 #### [facility] [address] [place], [address] MCV (RBC) [Entitic vol] 91.7 fL Normal 80-94 [facility] Comment on above: Performed By: #### L 100.0100, L506.1000, L501.9520, L500.4050 #### [facility] [address] [place], [address] Monocytes/100 WBC (Bld) 8.7 % Normal 0-10 [facility] Comment on above: Performed By: #### L 100.0100, L506.1000, L501.9520, L500.4050 #### [facility] [address] [place], [address] Neutrophils/100 WBC (Bld) 70.7 % High 47-70 [facility] Comment on above: Performed By: #### L 100.0100, L506.1000, L501.9520, L500.4050 #### [facility] [address] [place], [address] Nucleated RBC (Bld) [#/Vol] 0 10*3/uL Normal 0-5 [facility] Comment on above: Performed By: #### L 100.0100, L506.1000, L501.9520, L500.4050 #### [facility] [address] [place], [address] Platelet mean volume (Bld) [Entitic vol] 12.1 fL High 6.2-12.0 [facility] Comment on above: Performed By: #### L 100.0100, L506.1000, L501.9520, L500.4050 #### [facility] [address] [place], [address] Platelets (Bld) [#/Vol] 205 10*3/uL Normal 150-450 [facility] Comment on above: Performed By: #### L 100.0100, L506.1000, L501.9520, L500.4050 #### [facility] [address] [place], [address] RBC (Bld) [#/Vol] 4.68 10*6/uL Normal 4.6-6.2 [facility] Comment on above: Performed By: #### L 100.0100, L506.1000, L501.9520, L500.4050 #### [facility] [address] [place], [address] RDW SD 43.2 fl Normal 35.1-43.9 [facility] Comment on above: Performed By: #### L 100.0100, L506.1000, L501.9520, L500.4050 #### [facility] [address] [place], [address] WBC (Bld) [#/Vol] 9.2 10*3/uL Normal 4.4-11.[address] [facility] Comment on above: Performed By: #### L 100.0100, L506.1000, L501.9520, L500.4050 #### [facility] [address] [place], [id number] Comprehensive Metabolic Prof ilon 11-20-2024 Albumin [Mass/Vol] 3.5 g/dL Normal 3.2-5.[address] [facility] Comment on above: Performed By: #### L 3000.0375 #### [facility] [address] [place], [address] Albumin/Globulin [Mass ratio] 0.9 {ratio} Normal 0.9-2.4 [facility] Comment on above: Performed By: #### L 3000.0375 #### [facility] [address] [place], [address] ALK P 67 U/L Normal 45-117 [facility] Comment on above: Performed By: #### L 3000.0375 #### [facility] [address] [place], [address] ALT [Catalytic activity/Vol] 55 U/L Normal 16-61 [facility] Comment on above: Performed By: #### L 3000.0375 #### [facility] [address] [place], [address] AST [Catalytic activity/Vol] 25 U/L Normal 15-37 [facility] Comment on above: Performed By: #### L 3000.0375 #### [facility] [address] [place], [address] Bilirubin [Mass/Vol] 0.80 mg/dL Normal 0.20-1.00 [facility] Comment on above: Result Comment: For patients on eltrombopag therapy, use of Dimension [place] TBIL is not recommended. Performed By: #### L 3000.0375 #### [facility] [address] [place], [address] BUN/CRE 17.3 RATIO Normal 10-20 [facility] Comment on above: Performed By: #### L 3000.0375 #### [facility] [address] [place], [address] CA,Total 8.7 mg/dL Normal 8.5-10.1 [facility] Comment on above: Performed By: #### L 3000.0375 #### [facility] [address] [place], [address] Chloride [Moles/Vol] 108 mmol/L High 98-107 [facility] Comment on above: Performed By: #### L 3000.0375 #### [facility] [address] [place], [address] CO2 [Moles/Vol] 24.0 mmol/L Normal 21.0-32.0 [facility] Comment on above: Performed By: #### L 3000.0375 #### [facility] [address] [place], [address] Creatinine [Mass/Vol] 0.69 mg/dL Low 0.70-1.30 [facility] Comment on above: Result Comment: The validity of the calculated GFR GFRAA in patients over 70 years has not been determined. Clinical correlation is essential. Performed By: #### L 3000.0375 #### [facility] [address] [place], [address] EST GFR - AA 138 mL/min Normal >60 [facility] Comment on above: Result Comment: Afri can Guatemalan GFR Calc Performed By: #### L 3000.0375 #### [facility] [address] [place], [address] GAP 8 Normal 5-15 [facility] Comment on above: Performed By: #### L 3000.0375 #### [facility] [address] [place], [address] GFR/1.73 sq M.predicted among non-blacks MDRD (S/P/Bld) [Vol rate/Area] 114 mL/min/{1.73_m2} Normal >60 [facility] Comment on above: Result Comment: Non- GFR Calc Performed By: #### L 3000.0375 #### [facility] [address] [place], [address] Globulin (S) [Mass/Vol] 3.7 g/dL Normal 2.2-4.2 [facility] Comment on above: Performed By: #### L 3000.0375 #### [facility] [address] [place], [address] Glucose [Mass/Vol] 177 mg/dL High 74-[address] [facility] Comment on above: Result Comment: Fast ing Glucose result greater than or equal to 126 mg/dL suggests DIABETES MELLITUS per A.D.A. criteria. Performed By: #### L 3000.0375 #### [facility] [address] [place], [address] Potassium [Moles/Vol] 4.0 mmol/L Normal 3.5-5.1 [facility] Comment on above: Performed By: #### L 3000.0375 #### [facility] [address] [place], [address] Sodium [Moles/Vol] 140 mmol/L Normal 136-[address] [facility] Comment on above: Performed By: #### L 3000.0375 #### [facility] [address] [place], [address] T PROT 7.2 g/dL Normal 6.4-8.2 [facility] Comment on above: Performed By: #### L 3000.0375 #### [facility] [address] [place], [address] Urea nitrogen [Mass/Vol] 12 mg/dL Normal 7-18 [facility] Comment on above: Performed By: #### L 3000.0375 #### [facility] [address] [place], [address] Thyroid Stim Hormone (TSH)on 11-20-2024 TSH 2.420 uIU/mL Normal 0.358-3.740 [facility] Comment on above: Performed By: #### L 3000.0375 #### [facility] [address] [place], [id number] Vitamin D,25 Hydroxyon 11-20 Vitamin D 25-OH 19.8 ng/mL Normal [facility] Comment on above: Result Comment: Sharonda min D 25(OH) Status Range Deficiency <20 ng/mL (50nmol/L) Insufficiency 20 - 30 ng/mL (50 - 75 nmol/L) Sufficiency 30 - 100 ng/mL (75 - 250 nmol/L) Toxicity >100 ng/mL (>250 nmol/L) Performed By: #### L 3000.0375 #### [facility] [address] [place], [id number] MR/BMS.BPon 11-08-2024 MR/BMS.[address] [place] [address] OFFICE VISIT Date of Service: 11/08/24 MR#: [id number] Acct: [id number] Name: ZACHARY MCDERMOTT PeaceDebbie BAILON Rep #: [id number] : 1935 Provider: Dr. Vincent Alvarado se, DO Age/Sex: 89/M Location[facility] Status: Signed Intake Vital Signs 07/06/24 13:55 09/18/24 14:00 11/08/24 09:55 Height 5 ft 10 in 5 ft 10 in 5 ft 10 in Weight: 172 lb BMI 24.7 BP 153/74 H Blood Pressure Location Lt brachial Position Sitting Respiration 16 Pulse 102 H Pulse Source Monitor BP Intake Visit Reasons: Depression Accompanied by: Allergies lactic acid (From Lac-Hydrin) Allergy (Verified 11/08/24 09:58) Rash Penicillins Allergy (Verified 11/08/24 09:58) Unknown Medications ???Medication ???Instructions ???Recorded ???Confirmed ???Type alfuzosin 10 mg tablet,extended 10 mg PO DAILY prostate 10/02/20 11/08/24 History release 24 hr atorvastatin 80 mg tablet 80 mg PO QHS 03/15/21 11/08/24 History lisinopril 40 mg tablet 40 mg PO DAILY BP 03/15/21 11/08/24 History dutasteride 0.5 mg capsule 0.5 mg PO DAILY 03/18/21 11/08/24 History multivitamin 1 tab PO DAILY 03/18/21 11/08/24 History pantoprazole 40 mg tablet,delayed 40 mg PO DAILY 11/17/22 11/08/24 History release apixaban 2.5 mg tablet (Eliquis) 2.5 mg PO BID Please reduce dose 05/18/23 11/08/24 Rx to 2.5 mg twice daily #60 tabs latanoprost 0.005 % eye drops 1 drp ophthalmic (eye) DAILY 03/28/24 11/08/24 History melatonin 3 mg capsule 3 mg PO HS PRN 03/28/24 11/08/24 History pantoprazole 40 mg tablet,delayed 40 mg PO DAILY #14 tabs 04/28/24 11/08/24 Rx release (Protonix) citalopram 20 mg tablet 20 mg PO DAILY #90 tabs 11/08/24 11/08/24 Rx levothyroxine 25 mcg tablet mcg PO DAILY 11/08/24 11/08/24 History Have you fallen in the past year?: Yes (no injury) [facility] Medical History (Updated 11/08/24 @ 10:[address] Vincent Olmstead, ) MDD (major depressive disorder) Diabetes Chondrosarcoma of ribs Chronic eczema PAF (paroxysmal atrial fibrillation) Cholelithiasis Wears glasses Wears hearing aid Cancer Bruising Walker as ambulation aid Ambulates with cane Easy bruising High cholesterol Former smoker Hypertension Loss of peripheral visual field BPH (benign prostatic hyperplasia) Basal cell carcinoma Cryptogenic stroke 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) Essential (primary) hypertension Left arm weakness Facial droop Dysarthria Acute ischemic stroke Chronic back pain Surgical History History of shoulder surgery Status post laparoscopic cholecystectomy H/O basal cell carcinoma excision Family History Sister Ovarian cancer Diabetes old age onset Mother Basal cell carcinoma Father CHF (congestive heart failure) Diabetes old age onset Grandfather Diabetes old age onset Social History household members: spouse current occupational exposures/hazards: No Smoking Status: Former smoker pack-years: 20 Tobacco: How many years used: 20 how long ago did patient quit smokin years ago; quit sometime in the s alcohol intake: current alcohol intake frequency: holidays/special occasions only substance use type: does not use caffeine: Yes (Occasionally, drinks mostly caffeine free beverages) HPI History of Present Illness History provided by: patient Chief complaint: depression HPI: Zachary Mcdermott is an 89 year old male who presents today for new patient evaluation. Patient is very hard of hearing, and does report that he has somewhat poor memory, so history may be somewhat limited. Patient is rather slow in responding to questions. Comes as a referral from his PCP, Dr. Montalvo. Feels like mentally he is in worse shape than physical. Admits to having some difficulty with getting to sleep, but once asleep can stay asleep. Gets about 7-8 hours. Goes to bed around 8 pm and up around 7-8 am. Has had a stroke in the past, he believes about 4-5 years ago. 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 Does at times feel very depressed. [place] having a fall in an airport when being wheeled by an attendant in [place]. Had to sign a paper to decline medical care so that he could return to [place] to receive medical care. Had two subsequent CT scans. Feels like these injuries affect the way that he feels, specifically in regards to pain. Patient and his do live at [facility]. Has a history of diabetes, but does admit that he does not have a good understanding of his blood sugar. Has had erectile dysfunction since he had a stroke and this has caused some (more content not included)... Normal [facility] Thyroid Stim Hormone (TSH)on 09-27-2024 TSH 2.910 uIU/mL Normal 0.358-3.740 [facility] Comment on above: Performed By: #### L 501.9520 #### [facility] [place], [address] CBC W/Diff, Automatedon 11-0 4-2023 Absolute Lymph 1.57 X10 3/uL Normal 0.83-4.51 [facility] Comment on above: Performed By: #### L 3000.0375 #### [facility] [address] [place], [address] Absolute Neut 5.6 X10 3/uL Normal 2.0-7.7 [facility] Comment on above: Performed By: #### L 3000.0375 #### [facility] [address] [place], [address] Basophils/100 WBC (Bld) 0.9 % Normal 0-1 [facility] Comment on above: Performed By: #### L 3000.0375 #### [facility] [address] [place], [address] Eosinophils/100 WBC (Bld) 1.1 % Normal 0-5 [facility] Comment on above: Performed By: #### L 3000.0375 #### [facility] [address] [place], [address] Erythrocyte distribution width (RBC) [Ratio] 13.2 % Normal 11.6-14.6 [facility] Comment on above: Performed By: #### L 3000.0375 #### [facility] [address] [place], [address] Hematocrit (Bld) [Volume fraction] 42.0 % Normal 40-54 [facility] Comment on above: Performed By: #### L 3000.0375 #### [facility] [address] [place], [address] Hemoglobin (Bld) [Mass/Vol] 14.0 g/dL Normal 13.0-16.5 [facility] Comment on above: Performed By: #### L 3000.0375 #### [facility] [address] [place], [address] IG% 0.500 Normal 0.0-0.9 [facility] Comment on above: Result Comment: IG% - Immature Granulocytes (promyelocytes, myelocytes and metamyelocytes) > 1% indicates that a LEFT SHIFT is Present. Performed By: #### L 3000.0375 #### [facility] [address] [place], [address] Lymphocytes/100 WBC (Bld) 19.5 % Normal 19-41 [facility] Comment on above: Performed By: #### L 3000.0375 #### [facility] [address] [place], [address] MCH (RBC) [Entitic mass] 30.8 pg Normal 27.0-32.0 [facility] Comment on above: Performed By: #### L 3000.0375 #### [facility] [address] [place], [address] MCHC (RBC) [Mass/Vol] 33.3 g/dL Normal 32-36 [facility] Comment on above: Performed By: #### L 3000.0375 #### [facility] [address] [place], [address] MCV (RBC) [Entitic vol] 92.3 fL Normal 80-94 [facility] Comment on above: Performed By: #### L 3000.0375 #### [facility] [address] [place], [address] Monocytes/100 WBC (Bld) 9.3 % Normal 0-10 [facility] Comment on above: Performed By: #### L 3000.0375 #### [facility] [address] [place], [address] Neutrophils/100 WBC (Bld) 68.7 % Normal 47-70 [facility] Comment on above: Performed By: #### L 3000.0375 #### [facility] [address] [place], [address] Nucleated RBC (Bld) [#/Vol] 0 10*3/uL Normal 0-5 [facility] Comment on above: Performed By: #### L 3000.0375 #### [facility] [address] [place], [address] Platelet mean volume (Bld) [Entitic vol] 11.4 fL Normal 6.2-12.0 [facility] Comment on above: Performed By: #### L 3000.0375 #### [facility] [address] [place], [address] Platelets (Bld) [#/Vol] 232 10*3/uL Normal 150-450 [facility] Comment on above: Performed By: #### L 3000.0375 #### [facility] [address] [place], [address] RBC (Bld) [#/Vol] 4.55 10*6/uL Low 4.6-6.2 [facility] Comment on above: Performed By: #### L 3000.0375 #### [facility] [address] [place], [address] RDW SD 44.5 fl High 35.1-43.9 [facility] Comment on above: Performed By: #### L 3000.0375 #### [facility] [address] [place], [address] WBC (Bld) [#/Vol] 8.1 10*3/uL Normal 4.4-11.[address] [facility] Comment on above: Performed By: #### L 3000.0375 #### [facility] [address] [place], [address] Comprehensive Metabolic Prof ilon 08-14-2024 Albumin [Mass/Vol] 3.5 g/dL Normal 3.2-5.[address] [facility] Comment on above: Order Comment: VITD Performed By: #### L 3000.0375 #### [facility] [address] [place], [address] Albumin/Globulin [Mass ratio] 1.1 {ratio} Normal 0.9-2.4 [facility] Comment on above: Order Comment: VITD Performed By: #### L 3000.0375 #### [facility] [address] [place], [address] ALK P 66 U/L Normal 45-117 [facility] Comment on above: Order Comment: VITD Performed By: #### L 3000.0375 #### [facility] [address] [place], [address] ALT [Catalytic activity/Vol] 37 U/L Normal 16-61 [facility] Comment on above: Order Comment: VITD Performed By: #### L 3000.0375 #### [facility] [address] [place], [address] AST [Catalytic activity/Vol] 17 U/L Normal 15-37 [facility] Comment on above: Order Comment: VITD Performed By: #### L 3000.0375 #### [facility] [address] [place], [address] Bilirubin [Mass/Vol] 0.60 mg/dL Normal 0.20-1.00 [facility] Comment on above: Order Comment: VITD Result Comment: For patients on eltrombopag therapy, use of Dimension [place] TBIL is not recommended. Performed By: #### L 3000.0375 #### [facility] [address] [place], [address] BUN/CRE 16.8 RATIO Normal 10-20 [facility] Comment on above: Order Comment: VITD Performed By: #### L 3000.0375 #### [facility] [address] [place], [address] CA,Total 8.7 mg/dL Normal 8.5-10.1 [facility] Comment on above: Order Comment: VITD Performed By: #### L 3000.0375 #### [facility] [address] [place], [id number] Chloride [Moles/Vol] 107 mmol/L Normal 98-107 [facility] Comment on above: Order Comment: VITD Performed By: #### L 3000.0375 #### [facility] [address] [place], [address] CO2 [Moles/Vol] 24.0 mmol/L Normal 21.0-32.0 [facility] Comment on above: Order Comment: VITD Performed By: #### L 3000.0375 #### [facility] [address] [place], [address] Creatinine [Mass/Vol] 0.83 mg/dL Normal 0.70-1.30 [facility] Comment on above: Order Comment: VITD Result Comment: The validity of the calculated GFR GFRAA in patients over 70 years has not been determined. Clinical correlation is essential. Performed By: #### L 3000.0375 #### [facility] [address] [place], [id number] EST GFR - AA 112 mL/min Normal >60 [facility] Comment on above: Order Comment: VITD Result Comment: Afri can [place]alan GFR Calc Performed By: #### L 3000.0375 #### [facility] [address] [place], [address] GAP 6 Normal 5-15 [facility] Comment on above: Order Comment: VITD Performed By: #### L 3000.0375 #### [facility] [address] [place], [address] GFR/1.73 sq M.predicted among non-blacks MDRD (S/P/Bld) [Vol rate/Area] 92 mL/min/{1.73_m2} Normal >60 [facility] Comment on above: Order Comment: VITD Result Comment: Non- GFR Calc Performed By: #### L 3000.0375 #### [facility] [address] [place], [address] Globulin (S) [Mass/Vol] 3.2 g/dL Normal 2.2-4.2 [facility] Comment on above: Order Comment: VITD Performed By: #### L 3000.0375 #### [facility] [address] [place], [address] Glucose [Mass/Vol] 251 mg/dL High 74-[address] [facility] Comment on above: Order Comment: VITD Result Comment: Gluc ose result greater than or equal to 200 mg/dL suggests DIABETES MELLITUS per A.D.A. criteria. Performed By: #### L 3000.0375 #### [facility] [address] [place], [address] Potassium [Moles/Vol] 4.3 mmol/L Normal 3.5-5.1 [facility] Comment on above: Order Comment: VITD Performed By: #### L 3000.0375 #### [facility] [address] [place], [address] Sodium [Moles/Vol] 137 mmol/L Normal 136-[address] [facility] Comment on above: Order Comment: VITD Performed By: #### L 3000.0375 #### [facility] [address] [place], [address] T PROT 6.7 g/dL Normal 6.4-8.2 [facility] Comment on above: Order Comment: VITD Performed By: #### L 3000.0375 #### [facility] [address] [place], [address] Urea nitrogen [Mass/Vol] 14 mg/dL Normal 7-18 [facility] Comment on above: Order Comment: VITD Performed By: #### L 3000.0375 #### [facility] [address] [place], [address] Thyroid Stim Hormone (TSH)on 08-14-2024 TSH 5.020 uIU/mL High 0.358-3.740 [facility] Comment on above: Order Comment: VITD Performed By: #### L 3000.0375 #### [facility] [address] [place], [address] Vitamin D,25 Hydroxyon 08-14 Vitamin D 25-OH 21.8 ng/mL Normal [facility] Comment on above: Result Comment: Sharonda min D 25(OH) Status Range Deficiency <20 ng/mL (50nmol/L) Insufficiency 20 - 30 ng/mL (50 - 75 nmol/L) Sufficiency 30 - 100 ng/mL (75 - 250 nmol/L) Toxicity >100 ng/mL (>250 nmol/L) Performed By: #### L 3000.0375 #### [facility] [address] [place], [address] Radiation Oncology Visiton 0 07-06-2024 Radiation Oncology Visit [facility] [address] [place], [place] [address] OFFICE VISIT Date of Service: 07/06/24 1353 MR#: [id number] Acct: [id number] Name: ZACHARY MCDERMOTT Chandana Rep #: [id number] : 1935 From: Andres Shipley DO Age/Sex: 88/M Location: [place] Status: Signed Intake Vital Signs 03/09/24 13:41 07/06/24 13:55 Height 5 ft 10 in 5 ft 10 in Weight: 168 lb 8 oz BMI 24.1 BP 102/67 Blood Pressure Location Rt brachial Position Sitting Respiration 16 Pulse 105 H Pulse Source Monitor Temp 97.7 F L Temperature Source Temporal Artery Pulse Oximetry (%) 94 Oxygen Delivery Method room air Intake Visit Reasons: 4 MONTH F/U, REVIEW CT Accompanied by: Is patient in pain?: No Allergies lactic acid (From Lac-Hydrin) Allergy (Verified 07/06/24 14:01) Rash Penicillins Allergy (Verified 07/06/24 14:01) Unknown Medications ???Medication ???Instructions ???Recorded ???Confirmed ???Type alfuzosin 10 mg tablet,extended 10 mg PO DAILY prostate 10/02/20 07/06/24 History release 24 hr atorvastatin 80 mg tablet 80 mg PO QHS 03/15/21 07/06/24 History lisinopril 40 mg tablet 40 mg PO DAILY BP 03/15/21 07/06/24 History dutasteride 0.5 mg capsule 0.5 mg PO DAILY 03/18/21 07/06/24 History multivitamin 1 tab PO DAILY 03/18/21 07/06/24 History pantoprazole 40 mg tablet,delayed 40 mg PO DAILY 11/17/22 07/06/24 History release apixaban 2.5 mg tablet (Eliquis) 2.5 mg PO BID Please reduce dose 05/18/23 07/06/24 Rx to 2.5 mg twice daily #60 tabs latanoprost 0.005 % eye drops 1 drp ophthalmic (eye) DAILY 03/28/24 07/06/24 History melatonin 3 mg capsule 3 mg PO HS PRN 03/28/24 07/06/24 History pantoprazole 40 mg tablet,delayed 40 mg PO DAILY #14 tabs 04/28/24 07/06/24 Rx release (Protonix) Have you fallen in the past year?: No PFSH PFSH Medical History (Updated 07/06/24 @ 14:04 by Felicity Chau) Diabetes Chondrosarcoma of ribs Chronic eczema PAF (paroxysmal atrial fibrillation) Cholelithiasis Wears glasses Wears hearing aid Cancer Bruising Walker as ambulation aid Ambulates with cane Easy bruising High cholesterol Former smoker Hypertension Loss of peripheral visual field BPH (benign prostatic hyperplasia) Basal cell carcinoma Cryptogenic stroke 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) Essential (primary) hypertension Left arm weakness Facial droop Dysarthria Acute ischemic stroke Chronic back pain Home Medications ???Medication ???Instructions ???Recorded ???Last Taken ???Type alfuzosin 10 mg tablet,extended 10 mg PO DAILY prostate 10/02/20 03/20/22 History release 24 hr atorvastatin 80 mg tablet 80 mg PO QHS 03/15/21 03/20/22 History lisinopril 40 mg tablet 40 mg PO DAILY BP 03/15/21 03/20/22 History dutasteride 0.5 mg capsule 0.5 mg PO DAILY 03/18/21 03/20/22 History multivitamin 1 tab PO DAILY 03/18/21 03/20/22 History pantoprazole 40 mg tablet,delayed 40 mg PO DAILY 11/17/22 Unknown History release apixaban 2.5 mg tablet (Eliquis) 2.5 mg PO BID Please reduce dose 05/18/23 Unknown Rx to 2.5 mg twice daily #60 tabs latanoprost 0.005 % eye drops 1 drp ophthalmic (eye) DAILY 03/28/24 Unknown History melatonin 3 mg capsule 3 mg PO HS PRN 03/28/24 Unknown History pantoprazole 40 mg tablet,delayed 40 mg PO DAILY #14 tabs 04/28/24 Unknown Rx release (Protonix) Allergy/AdvReac Type Severity Reaction Status Date / Time lactic acid (From Lac-Hydrin) Allergy Rash Verified 07/06/24 14:01 Penicillins Allergy Unknown Verified 07/06/24 14:01 Family History Sister Ovarian cancer Diabetes old age onset Mother Basal cell carcinoma Father CHF (congestive heart failure) Diabetes old age onset Grandfather Diabetes old age onset Surgical History History of shoulder surgery Status post laparoscopic cholecystectomy H/O basal cell carcinoma excision Social History household members: spouse current occupational exposures/hazards: No Smoking Status: Former smoker pack-years: 20 Tobacco: How many years used: 20 how long ago did patient quit smokin years ago; quit sometime in the s alcohol intake: current alcohol intake frequency: holidays/special occasions only substance use type: does not use caffeine: Yes (Occasionally, drinks mostly caffeine free beverages) Diagnosis: Zachary Mcdermott is an 88-year-old male 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 History of Present I (more content not included)... Normal [facility] Chest WITH Contraston 2023 Chest WITH Contrast [facility] Imaging Services [address] [place] [address] Chest WITH Contrast MR#: [id number] Acct: [id number] Name: ZACHARY MCDERMOTT Rep #: [id number] : 1935 88 From: Gerardo Calvo MD PCP: Dr. Sandoval Montalvo MD Status: REG CLI Study: Chest WITH Contrast Date of Exam: 07/04/24 Exam# [id number] Ordering [place]: [place] [id number] EXAM: CT CHEST WITH INTRAVENOUS CONTRAST CLINICAL INDICATION: follow up CW sarcoma -- please compare to prior TECHNIQUE: Helically acquired images were obtained of the chest with intravenous contrast. This CT exam was performed using one or more of the following dose reduction techniques: automated exposure control, adjustment of the mA and/or kV according to patient size, and/or use of iterative reconstruction technique. CONTRAST: IV 100mL Isovue-370 COMPARISON: No relevant prior studies available. FINDINGS: LUNGS AND PLEURAL SPACES: 10.0 x 7.3 x 4.7 cm right anterior chest wall mass noted previously measuring 9.6 x 7.0 x 4.8 cm. Lesion again involves the right costochondral junction extending from the second rib and fifth rib levels. Central partially calcified component again seen. Portion of the mass extending through the intercostal and juxtapleural space. 5 mm in left lower lobe pulmonary nodule noted along the lateral costophrenic sulcus. Lungs are otherwise clear. No pneumothorax. HEART: Normal. Heart size is normal. No pericardial effusion. MEDIASTINUM: Normal. No mediastinal or hilar adenopathy. Esophagus is unremarkable. No hiatal hernia. BONES/JOINTS: No suspicious lytic or blastic abnormality. VASCULATURE: No thoracic aortic aneurysm or dissection. CT/Chest WITH Contrast IMPRESSION: 1. No significant interval change in the right anterior chest wall mass. 2. 5 mm left lower lobe pulmonary nodule. Electronically Signed: Gerardo Calvo MD at 8:45 EDT , CC: Dr. Andres Shipley DO; Dr. Sandoval Montalvo MD [employer]pensing Supervisor: Signed Normal [facility] Urine Cultureon 06-24-2024 [facility] Mixed Gram Positive Organisms Jewett Count 1000-10,000 MIXC Mixed contaminants. Submit a new specimen if indicated. Normal [facility] Comment on above: Performed By: #### M 100.2200 #### [facility] Laboratory [address] [place], [address] CBC W/Diff, Automatedon 06-11 Absolute Lymph 1.14 X10 3/uL Normal 0.83-4.51 [facility] Comment on above: Performed By: #### L 3000.0375 #### [facility] [address] [place], [address] Absolute Neut 6.6 X10 3/uL Normal 2.0-7.7 [facility] Comment on above: Performed By: #### L 3000.0375 #### [facility] [address] [place], [address] Basophils/100 WBC (Bld) 0.6 % Normal 0-1 [facility] Comment on above: Performed By: #### L 3000.0375 #### [facility] [address] [place], [address] Eosinophils/100 WBC (Bld) 0.6 % Normal 0-5 [facility] Comment on above: Performed By: #### L 3000.0375 #### [facility] [address] [place], [address] Erythrocyte distribution width (RBC) [Ratio] 12.9 % Normal 11.6-14.6 [facility] Comment on above: Performed By: #### L 3000.0375 #### [facility] [address] [place], [address] Hematocrit (Bld) [Volume fraction] 41.0 % Normal 40-54 [facility] Comment on above: Performed By: #### L 3000.0375 #### [facility] [address] [place], [address] Hemoglobin (Bld) [Mass/Vol] 13.7 g/dL Normal 13.0-16.5 [facility] Comment on above: Performed By: #### L 3000.0375 #### [facility] [address] [place], [address] IG% 0.400 Normal 0.0-0.9 [facility] Comment on above: Result Comment: IG% - Immature Granulocytes (promyelocytes, myelocytes and metamyelocytes) > 1% indicates that a LEFT SHIFT is Present. Performed By: #### L 3000.0375 #### [facility] [address] [place], [address] Lymphocytes/100 WBC (Bld) 13.3 % Low 19-41 [facility] Comment on above: Performed By: #### L 3000.0375 #### [facility] [address] [place], [address] MCH (RBC) [Entitic mass] 30.4 pg Normal 27.0-32.0 [facility] Comment on above: Performed By: #### L 3000.0375 #### [facility] [address] [place], [address] MCHC (RBC) [Mass/Vol] 33.4 g/dL Normal 32-36 [facility] Comment on above: Performed By: #### L 3000.0375 #### [facility] [address] [place], [address] MCV (RBC) [Entitic vol] 91.1 fL Normal 80-94 [facility] Comment on above: Performed By: #### L 3000.0375 #### [facility] [address] [place], [address] Monocytes/100 WBC (Bld) 8.4 % Normal 0-10 [facility] Comment on above: Performed By: #### L 3000.0375 #### [facility] [address] [place], [address] Neutrophils/100 WBC (Bld) 76.7 % High 47-70 [facility] Comment on above: Performed By: #### L 3000.0375 #### [facility] [address] [place], [address] Nucleated RBC (Bld) [#/Vol] 0 10*3/uL Normal 0-5 [facility] Comment on above: Performed By: #### L 3000.0375 #### [facility] [address] [place], [address] Platelet mean volume (Bld) [Entitic vol] 12.1 fL High 6.2-12.0 [facility] Comment on above: Performed By: #### L 3000.0375 #### [facility] [address] [place], [address] Platelets (Bld) [#/Vol] 214 10*3/uL Normal 150-450 [facility] Comment on above: Performed By: #### L 3000.0375 #### [facility] [address] [place], [address] RBC (Bld) [#/Vol] 4.50 10*6/uL Low 4.6-6.2 [facility] Comment on above: Performed By: #### L 3000.0375 #### [facility] [address] [place], [address] RDW SD 42.9 fl Normal 35.1-43.9 [facility] Comment on above: Performed By: #### L 3000.0375 #### [facility] [address] [place], [address] WBC (Bld) [#/Vol] 8.6 10*3/uL Normal 4.4-11.[address] [facility] Comment on above: Performed By: #### L 3000.0375 #### [facility] [address] [place], [address] Comprehensive Metabolic Prof ilon 06-23-2024 Albumin [Mass/Vol] 3.5 g/dL Normal 3.2-5.[address] [facility] Comment on above: Performed By: #### L 3000.0375 #### [facility] [address] [place], [address] Albumin/Globulin [Mass ratio] 1.0 {ratio} Normal 0.9-2.4 [facility] Comment on above: Performed By: #### L 3000.0375 #### [facility] [address] [place], [address] ALK P 80 U/L Normal 45-117 [facility] Comment on above: Performed By: #### L 3000.0375 #### [facility] [address] [place], [address] ALT [Catalytic activity/Vol] 41 U/L Normal 16-61 [facility] Comment on above: Performed By: #### L 3000.0375 #### [facility] [address] [place], [address] AST [Catalytic activity/Vol] 28 U/L Normal 15-37 [facility] Comment on above: Result Comment: Mode rate Hemolysis, Result may be falsely increased. Performed By: #### L 3000.0375 #### [facility] [address] [place], [address] Bilirubin [Mass/Vol] 0.90 mg/dL Normal 0.20-1.00 [facility] Comment on above: Result Comment: For patients on eltrombopag therapy, use of Dimension [place] TBIL is not recommended. Performed By: #### L 3000.0375 #### [facility] [address] [place], [address] BUN/CRE 16.7 RATIO Normal 10-20 [facility] Comment on above: Performed By: #### L 3000.0375 #### [facility] [address] [place], [address] CA,Total 9.9 mg/dL Normal 8.5-10.1 [facility] Comment on above: Performed By: #### L 3000.0375 #### [facility] [address] [place], [address] Chloride [Moles/Vol] 105 mmol/L Normal 98-107 [facility] Comment on above: Performed By: #### L 3000.0375 #### [facility] [address] [place], [address] CO2 [Moles/Vol] 23.0 mmol/L Normal 21.0-32.0 [facility] Comment on above: Performed By: #### L 3000.0375 #### [facility] [address] [place], [address] Creatinine [Mass/Vol] 1.02 mg/dL Normal 0.70-1.30 [facility] Comment on above: Result Comment: The validity of the calculated GFR GFRAA in patients over 70 years has not been determined. Clinical correlation is essential. Performed By: #### L 3000.0375 #### [facility] [address] [place], [address] EST GFR - AA 89 mL/min Normal >60 [facility] Comment on above: Result Comment: Afri can [place] GFR Calc Performed By: #### L 3000.0375 #### [facility] [address] [place], [address] GAP 9 Normal 5-15 [facility] Comment on above: Performed By: #### L 3000.0375 #### [facility] [address] [place], [address] GFR/1.73 sq M.predicted among non-blacks MDRD (S/P/Bld) [Vol rate/Area] 73 mL/min/{1.73_m2} Normal >60 [facility] Comment on above: Result Comment: Non- GFR Calc Performed By: #### L 3000.0375 #### [facility] [address] [place], [address] Globulin (S) [Mass/Vol] 3.6 g/dL Normal 2.2-4.2 [facility] Comment on above: Performed By: #### L 3000.0375 #### [facility] [address] [place], [address] Glucose [Mass/Vol] 384 mg/dL High 74-[address] [facility] Comment on above: Result Comment: Gluc ose result greater than or equal to 200 mg/dL suggests DIABETES MELLITUS per A.D.A. criteria. Performed By: #### L 3000.0375 #### [facility] [address] [place], [address] Potassium [Moles/Vol] 4.1 mmol/L Normal 3.5-5.1 [facility] Comment on above: Result Comment: Mode rate Hemolysis, Result may be falsely increased. Performed By: #### L 3000.0375 #### [facility] [address] [place], [address] Sodium [Moles/Vol] 137 mmol/L Normal 136-[address] [facility] Comment on above: Performed By: #### L 3000.0375 #### [facility] [address] [place], [address] T PROT 7.1 g/dL Normal 6.4-8.2 [facility] Comment on above: Performed By: #### L 3000.0375 #### [facility] [address] [place], [place], [address] Urea nitrogen [Mass/Vol] 17 mg/dL Normal 7-18 [facility] Comment on above: Performed By: #### L 3000.0375 #### [facility] [address] [place], [place], [address] Urine Cultureon 06-04-2024 [facility] Below infection leve l. Mixed Gram Positive Organisms Jewett Count <1000 MIXC Mixed contaminants. Submit a new specimen if indicated. Normal [facility] Comment on above: Performed By: #### L 501.9520 #### [facility] [address] [place], [address] CNPNon 05-18-2024 [facility] ZACHARY MCDERMOTT ([id number]) 1935 M Date Time Provider Department 05/18[facility]24 [facility] your [facility] today, we recorded the following information about you: Carolyn Romero MA 05/18/2024 8:57 AM Signed Office received a medical release form for pt to have records sent to [facility]. Ok to send? KELLY Pryor Mark D, MD 05/18/2024 9:00 AM Signed OK to send MD Nick Maxwell Kathryn, MA 05/18/2024 9:43 AM Signed form sent to [facility] to send. Carolyn Romero MA Allergies As of Date: 05/18/2024 Noted Allergy Reaction PENICILLINS 09/15/2005 Date Reviewed: 03/23/2024 Reviewed by: Carmen Benítez LPN - Fully Assessed Reason for Visit: Release Of Medical Records [2017] Cmt: [facility] Prescriptions as of 05/18/2024 - apixaban (ELIQUIS) 2.5 mg tab(s) Take 1 tablet by mouth two times a day. - FLUoxetine (PROZAC) 40 mg capsule Take 1 capsule by mouth once daily. - pantoprazole DR (PROTONIX) 40 mg tablet Take 1 tablet by mouth daily before breakfast. Take on empty stomach, 1/2 hr before meal. - glimepiride (AMARYL) 2 mg tablet Take 1 tablet by mouth daily with breakfast. - FLUoxetine (PROZAC) 20 mg capsule Take 1 capsule by mouth once daily. Take along with 40 mg capsule - lisinopril (ZESTRIL) 40 mg tablet Take 1 tablet by mouth once daily. - semaglutide (OZEMPIC) 0.25 mg or 0.5 mg (2 mg/3 mL) pen Inject 0.5 mg subcutaneously one time a week. - amLODIPine (NORVASC) 5 mg tablet Take 1 tablet by mouth once daily. - alfuzosin SR (UROXATRAL) 10 mg 24 hr tablet Take 1 tablet by mouth once daily. - atorvastatin (LIPITOR) 80 mg tablet Take 1 tablet by mouth once daily. - dutasteride (AVODART) 0.5 mg capsule Take 1 capsule by mouth once daily. - dulaglutide (TRULICITY) 1.5 mg/0.5 mL pen injector Inject 1.5 mg subcutaneously one time a week. Inject once per week. Discard Pen After - ondansetron orally disintegrating (ZOFRAN ODT) 4 mg disintegrating tablet Take 1 tablet by mouth every 6 hours as needed for nausea/vomiting. - betamethasone dipropionate, augmented (DIPROLENE) 0.05 % cream Dr. Bridger Lomax. Apply as needed for eczema. - multivitamin tablet Take 1 tablet by mouth once daily. Meds Comments as of 06/02/2022: Tylenol as needed, Magnesium every other day, Potassium q other day. Antihistamine at bedtime. 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] 09/20/2009 02/25/2012 Seborrheic Keratosis [L82.1] 09/20/2009 02/25/2012 Actinic Damage//Sun-Damaged Skin [L57.8] 09/20/2009 02/25/2012 Solar Lentigines [L81.4] 09/20/2009 02/25/2012 Xerosis cutis [L85.3] 09/20/2009 02/25/2012 Impaired fasting glucose [R73.01] 01/01/2010 Epidermal cyst [L72.0] 09/28/2010 02/25/2012 Leg cramps [R25.2] 06/29/2011 02/25/2012 Essential hypertension, benign [I10] 02/25/2012 Folliculitis [L73.9] 07/14/2012 04/14/2013 Pyoderma, unspecified [L08.0] 07/14/2012 04/14/2013 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] 07/14/2012 04/14/2013 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] 07/14/2012 04/14/2013 Actinic Damage//Sun-Damaged Skin [L57.8] 07/14/2012 10/27/2016 Solar Lentigines [L81.4] 07/14/2012 04/14/2013 Irritated//Inflamed Seborrheic Keratosis [L82.0]09/13/2012 03/12/2015 Postinflammatory skin changes [R23.8] 09/13/2012 04/14/2013 Other seborrheic dermatitis [L21.8] 09/13/2012 03/12/2015 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] 08/27/2013 10/27/2016 Seborrheic Keratoses [L82.1] 08/27/2013 03/12/2015 Solar lentigo [L81.4] 08/27/2013 03/12/2015 Xerosis cutis [L85.3] 08/27/2013 03/12/2015 Actinic skin damage [L57.8] 08/27/2013 03/12/2015 Scars [L90.5] 08/27/2013 03/12/2015 Other acne [L70.8] 08/27/2013 03/12/2015 Epidermal cyst [L72.0] 08/27/2013 03/12/2015 Type 2 diabetes mellitus without complication, *11/21/2019 History of CVA (cerebrovascular accident) [Z86.*11/11/2020 Current moderate episode of major depressive di*12/02/2020 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, [address] Absolute Neut 6.8 X10 3/uL Normal 2.0-7.7 [facility] Comment on above: Performed By: #### L 501.9520 #### [facility] [address] [place], [address] Basophils/100 WBC (Bld) 0.9 % Normal 0-1 [facility] Comment on above: Performed By: #### L 501.9520 #### [facility] [address] [place], [address] Eosinophils/100 WBC (Bld) 0.9 % Normal 0-5 [facility] Comment on above: Performed By: #### L 055.9533 #### [facility] [address] [place], [address] Erythrocyte distribution width (RBC) [Ratio] 12.9 % Normal 11.6-14.6 [facility] Comment on above: Performed By: #### L 965.9520 #### [facility] [address] [place], [address] Hematocrit (Bld) [Volume fraction] 40.6 % Normal 40-54 [facility] Comment on above: Performed By: #### L 986.9594 #### [facility] [address] [place], [address] Hemoglobin (Bld) [Mass/Vol] 13.3 g/dL Normal 13.0-16.5 [facility] Comment on above: Performed By: #### L 609.9520 #### [facility] [address] [place], [address] IG% 0.600 Normal 0.0-0.9 [facility] Comment on above: Result Comment: IG% - Immature Granulocytes (promyelocytes, myelocytes and metamyelocytes) > 1% indicates that a LEFT SHIFT is Present. Performed By: #### L 314.9520 #### [facility] [address] [place], [address] Lymphocytes/100 WBC (Bld) 15.1 % Low 19-41 [facility] Comment on above: Performed By: #### L 746.6615 #### [facility] [address] [place], [address] MCH (RBC) [Entitic mass] 30.0 pg Normal 27.0-32.0 [facility] Comment on above: Performed By: #### L 501.9520 #### [facility] [address] [place], [address] MCHC (RBC) [Mass/Vol] 32.8 g/dL Normal 32-36 [facility] Comment on above: Performed By: #### L .[id number] #### [facility] [address] [place], [address] MCV (RBC) [Entitic vol] 91.6 fL Normal 80-94 [facility] Comment on above: Performed By: #### L .[id number] #### [facility] [address] [place], [address] Monocytes/100 WBC (Bld) 9.9 % Normal 0-10 [facility] Comment on above: Performed By: #### L #### [facility] [address] [place], [address] Neutrophils/100 WBC (Bld) 72.6 % High 47-70 [facility] Comment on above: Performed By: #### L #### [facility] [address] [place], [address] Nucleated RBC (Bld) [#/Vol] 0 10*3/uL Normal 0-5 [facility] Comment on above: Performed By: #### L .[id number] #### [facility] [address] [place], [address] Platelet mean volume (Bld) [Entitic vol] 10.8 fL Normal 6.2-12.0 [facility] Comment on above: Performed By: #### L 501 #### [facility] [address] [place], [address] Platelets (Bld) [#/Vol] 264 10*3/uL Normal 150-450 [facility] Comment on above: Performed By: #### L 423.9519 #### [facility] [address] [place], [address] RBC (Bld) [#/Vol] 4.43 10*6/uL Low 4.6-6.2 [facility] Comment on above: Performed By: #### L [id number] #### [facility] [address] [place], [address] RDW SD 43.3 fl Normal 35.1-43.9 [facility] Comment on above: Performed By: #### L 960.9120 #### [facility] [address] [place], [address] WBC (Bld) [#/Vol] 9.4 10*3/uL Normal 4.4-11.[address] [facility] Comment on above: Performed By: #### L 683.9520 #### [facility] [address] [place], [address] Comprehensive Metabolic [facility] 05-11-2024 Albumin [Mass/Vol] 3.5 g/dL Normal 3.2-5.[address] [facility] Comment on above: Performed By: #### L 730.9520 #### [facility] [address] [place], [address] Albumin/Globulin [Mass ratio] 1.0 {ratio} Normal 0.9-2.4 [facility] Comment on above: Performed By: #### L 397.9520 #### [facility] [address] [place], [address] ALK P 77 U/L Normal 45-117 [facility] Comment on above: Performed By: #### L 883.3119 #### [facility] [address] [place], [address] ALT [Catalytic activity/Vol] 52 U/L Normal 16-61 [facility] Comment on above: Performed By: #### L 005.1731 #### [facility] [address] [place], [address] AST [Catalytic activity/Vol] 28 U/L Normal 15-37 [facility] Comment on above: Performed By: #### L [id number] #### [facility] [address] [place], [address] Bilirubin [Mass/Vol] 0.70 mg/dL Normal 0.20-1.00 [facility] Comment on above: Result Comment: For patients on eltrombopag therapy, use of Dimension [place] TBIL is not recommended. Performed By: #### L [id number] #### [facility] [address] [place], [address] BUN/CRE 13.1 RATIO Normal 10-20 [facility] Comment on above: Performed By: #### L [id number] #### [facility] [address] [place], [address] CA,Total 9.2 mg/dL Normal 8.5-10.1 [facility] Comment on above: Performed By: #### L [id number] #### [facility] [address] [place], [address] Chloride [Moles/Vol] 103 mmol/L Normal 98-107 [facility] Comment on above: Performed By: #### L [id number] #### [facility] [address] [place], [address] CO2 [Moles/Vol] 24.0 mmol/L Normal 21.0-32.0 [facility] Comment on above: Performed By: #### L [id number] #### [facility] [address] [place], [address] Creatinine [Mass/Vol] 0.91 mg/dL Normal 0.70-1.30 [facility] Comment on above: Result Comment: The validity of the calculated GFR GFRAA in patients over 70 years has not been determined. Clinical correlation is essential. Performed By: #### L [id number] #### [facility] [address] [place], [address] EST GFR - AA 100 mL/min Normal >60 [facility] Comment on above: Result Comment: Afri can [place] GFR Calc Performed By: #### L [id number] #### [facility] [address] [place], [address] GAP 8 Normal 5-15 [facility] Comment on above: Performed By: #### L 239.9520 #### [facility] [address] [place], [address] GFR/1.73 sq M.predicted among non-blacks MDRD (S/P/Bld) [Vol rate/Area] 83 mL/min/{1.73_m2} Normal >60 [facility] Comment on above: Result Comment: Non- GFR Calc Performed By: #### L 731.9520 #### [facility] [address] [place], [address] Globulin (S) [Mass/Vol] 3.6 g/dL Normal 2.2-4.2 [facility] Comment on above: Performed By: #### L 489.9520 #### [facility] [address] [place], [address] Glucose [Mass/Vol] 242 mg/dL High 74-[address] [facility] Comment on above: Result Comment: Gluc ose result greater than or equal to 200 mg/dL suggests DIABETES MELLITUS per A.D.A. criteria. Performed By: #### L 956.9510 #### [facility] [address] [place], [address] Potassium [Moles/Vol] 4.2 mmol/L Normal 3.5-5.1 [facility] Comment on above: Performed By: #### L [id number] #### [facility] [address] [place], [place], [id number] Sodium [Moles/Vol] 135 mmol/L Low 136-[address] [facility] Comment on above: Performed By: #### L [id number] #### [facility] [address] [place], [place], [id number] T PROT 7.1 g/dL Normal 6.4-8.2 [facility] Comment on above: Performed By: #### L [id number] #### [facility] [address] [place], [place], [id number] Urea nitrogen [Mass/Vol] 12 mg/dL Normal 7-18 [facility] Comment on above: Performed By: #### L 501.9520 #### [facility] [address] [place], [place], [address] Hemoglobin A1con 05-11-2024 HbA1c (Bld) [Mass fraction] 8.2 % High 3.8-5.6 [facility] Comment on above: Result Comment: Norm al < 5.7 % Prediabetic 5.7 - 6.4 % Diabetic >or= 6.5 % Please note range changes. Performed By: #### L 501.9520 #### [facility] [address] [place], [place], [id number] Hepatitis C Antibodyon 05-11 Hepatitis C AB Non-Reactive Normal Nonreactive [facility] Comment on above: Result Comment: Non Reactive: < 0.8 Equivocal: >/= 0.8 to < 1.0 Reactive: >/= 1.0 The CDC requires that a reactive/equivocal HCV antibody result be sent out for confirmation. HCV Quant by PCR testing. Performed By: #### L 501.9520 #### [facility] [address] [place], [place], [id number] Lipid Profileon 05-11-2024 Cholesterol [Mass/Vol] 104 mg/dL Normal 200 [facility] Comment on above: Result Comment: <200 mg/dL Desirable 200-240 mg/dL Borderline >240 mg/dL High Risk Performed By: #### L 501.9520 #### [facility] [address] [place], [address] Cholesterol in HDL [Mass/Vol] 40 mg/dL Normal [facility] Comment on above: Result Comment: The drugs N-Acetylcysteine and Metamizole may falsely depress this assay. Reference Range HDL <40 mg/dL Low HDL Cholesterol HDL >or= 60 mg/dL High HDL Cholesterol Performed By: #### L [id number] #### [facility] [address] [place], [address] Cholesterol in LDL [Mass/Vol] 34 mg/dL Normal 0-130 [facility] Comment on above: Performed By: #### L 501.9519 #### [facility] [address] [place], [address] Cholesterol in VLDL [Mass/Vol] 30 mg/dL Normal 5-40 [facility] Comment on above: Performed By: #### L [id number] #### [facility] [address] [place], [address] Triglyceride [Mass/Vol] 152 mg/dL Normal [facility] Comment on above: Result Comment: The drugs N-Acetylcysteine and Metamizole may falsely depress this assay. Serum Triglycerides Reference Interval Normal <150 mg/dL Borderline high 150 - 199 mg/dL High 200 - 499 mg/dL Very High > or = 500 mg/dL Performed By: #### L [id number] #### [facility] [address] [place], [address] Thyroid Stim Hormone (TSH)on 05-11-2024 TSH 4.81 uIU/mL High 0.358-3.74 [facility] Comment on above: Performed By: #### L [id number] #### [facility] [address] [place], [address] Vitamin D,25 Hydroxyon 05-11 Vitamin D 25-OH 32.1 ng/mL Normal [facility] Comment on above: Result Comment: Sharonda min D 25(OH) Status Range Deficiency <20 ng/mL (50nmol/L) Insufficiency 20 - 30 ng/mL (50 - 75 nmol/L) Sufficiency 30 - 100 ng/mL (75 - 250 nmol/L) Toxicity >100 ng/mL (>250 nmol/L) Performed By: #### L [id number] #### [facility] [address] [place], [address] Urgent Care Visit Reporton 0 04-28-2024 Urgent Care Visit Report [facility] [address], [address] [place] [address] OFFICE VISIT Date of Service: 04/28/24 MR#: [id number] Acct: [id number] Name: ZACHARY MCDERMOTT Rep #: [id number] : 1935 Provider: LORETA Martinez Age/Sex: 88/M Location: [facility] Status: Signed Intake Vital Signs 03/09/24 13:41 04/28/24 08:21 Height 5 ft 10 in Weight: 180 lb 6 oz BMI 25.9 BP 136/79 H 140/82 H Blood Pressure Location Lt brachial Lt brachial Position Sitting Sitting Respiration 18 16 Pulse 102 H 88 Pulse Source Monitor NIBP Temp 97.7 F L 98.4 F Temp Source Temporal Pulse Oximetry (%) 93 95 Oxygen Delivery Method room air room air Intake Visit Reasons: NAUSEOUS, POSSIBLE SINUS INFECTION Chief Complaint: nausea Mobility Manager Required: No Is patient in pain?: No Allergies lactic acid (From Lac-Hydrin) Allergy (Verified 04/28/24 08:22) Rash Penicillins Allergy (Verified 04/28/24 08:22) Unknown Medications ???Medication ???Instructions ???Recorded ???Confirmed ???Type alfuzosin 10 mg tablet,extended 10 mg PO DAILY prostate 10/02/20 04/28/24 History release 24 hr amlodipine 5 mg tablet 5 mg PO DAILY BP 03/15/21 04/28/24 History atorvastatin 80 mg tablet 80 mg PO QHS 03/15/21 04/28/24 History lisinopril 40 mg tablet 40 mg PO DAILY BP 03/15/21 04/28/24 History dutasteride 0.5 mg capsule 0.5 mg PO DAILY 03/18/21 04/28/24 History multivitamin 1 tab PO DAILY 03/18/21 04/28/24 History fluoxetine 20 mg capsule 40 mg PO DAILY 11/17/22 04/28/24 History glimepiride 2 mg tablet tablet PO 11/17/22 04/28/24 History pantoprazole 40 mg tablet,delayed 40 mg PO DAILY 11/17/22 04/28/24 History release apixaban 2.5 mg tablet (Eliquis) 2.5 mg PO BID Please reduce dose 05/18/23 04/28/24 Rx to 2.5 mg twice daily #60 tabs ondansetron 4 mg disintegrating mg translingual TID PRN 05/18/23 04/28/24 History tablet semaglutide 0.25 mg or 0.5 mg (2 0.25 mg subcut QWEEK 03/09/24 04/28/24 History mg/3 mL) subcutaneous pen injector (Ozempic) latanoprost 0.005 % eye drops 1 drp ophthalmic (eye) DAILY 03/28/24 04/28/24 History melatonin 3 mg capsule 3 mg PO HS PRN 03/28/24 04/28/24 History pantoprazole 40 mg tablet,delayed 40 mg PO DAILY #14 tabs 04/28/24 04/28/24 Rx release (Protonix) Have you fallen in the past year?: Yes Nurse's Note: nausea x 2 weeks. denies abd pain, cough, congestion, REICH, ST, drainage, mucus, change in bowel habits. pt daughter concerned pt may have sinus infection and having drainage upsetting stomach. [facility] Medical History Chondrosarcoma of ribs Chronic eczema PAF (paroxysmal atrial fibrillation) Cholelithiasis Wears glasses Wears hearing aid Cancer Bruising Walker as ambulation aid Ambulates with cane Easy bruising High cholesterol Former smoker Hypertension Loss of peripheral visual field BPH (benign prostatic hyperplasia) Basal cell carcinoma Cryptogenic stroke 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) Essential (primary) hypertension Left arm weakness Facial droop Dysarthria Acute ischemic stroke Chronic back pain Surgical History History of shoulder surgery Status post laparoscopic cholecystectomy H/O basal cell carcinoma excision Family History Sister Ovarian cancer Diabetes old age onset Mother Basal cell carcinoma Father CHF (congestive heart failure) Diabetes old age onset Grandfather Diabetes old age onset Social History household members: spouse current occupational exposures/hazards: No Smoking Status: Former smoker pack-years: 20 Tobacco: How many years used: 20 how long ago did patient quit smokin years ago; quit sometime in the s alcohol intake: current alcohol intake frequency: holidays/special occasions only substance use type: does not use caffeine: Yes (Occasionally, drinks mostly caffeine free beverages) HPI HPI Chief Complaint: nausea Details: ZACHARY MCDERMOTT, is a 88 M who presents to the office today for complaint of nausea for the past 2 weeks. Patient is accompanied by his daughter and for support. Patient did have one episode of vomiting with no hemoptysis or hematochezia. Daughter states he and his both had sinus like symptoms last week with the getting treatment but the patient states those symptoms have improved. states the patient is supposed to take a medication for reflux however she is not sure he has been taking them. ROS Const Constitutional: No other (6 system ROS completed with pertinent findings in HPI otherwise normal. ) Exam Const General: c (more content not included)... Normal [facility] 04-27-2024 [facility] Telephone ([facility]) ZACHARY MCDERMOTT ([id number]) 1935 Date Time Provider Department 04/27/24 EMILIA JACOB [facility] During your visit today, we recorded the following information about you: Rose Mary Castro 04/27/2024 9:40 AM Signed Mark has his Patti calling Emilia Jacob MD today to request to fill RX early for the Eliquis 2.5 mg tablet twice daily, per Patti, they are leaving to go out of town and will be gone when this refill is due next week. Per Patti she filled his medication in the pill container for this trip and found to be 3 tablets short to get him through that time. Pharmacy is [facility] in [place], please advise Patti as she is concerned that patient needs this medication and can not be without it. Patient has been identified by name and birthdate. Duration of symptoms: N/A Person calling: spouse: Patti Call patient Patti at home ok to leave message per patient Patti barber [phone] (home) [phone] (cell) Was an appointment scheduled: No Closing statement: Results or non-symptom based questions: Thank you for calling [facility], your call will be returned within the next business day. Rose Mary Burnham [facility] Digna Chakraborty APRN.AIDA 04/27/2024 11:45 AM Signed The following approved medication requests have been transmitted electronically. Requested Prescriptions Signed Prescriptions Disp Refills apixaban (ELIQUIS) 2.5 mg tab(s) 60 tablet 11 Sig: Take 1 tablet by mouth two times a day. Authorizing Provider: DIGNA CHAKRABORTY APRN.CNP McCullough, Krystle, RN 04/27/2024 12:34 PM Signed Daughter (Maeve) returns call with patient and below reviewed. Patient requested to add daughter Maeve to chart to receive medical information. Maeve reports that patient has been having an upset stomach for several weeks and is asking if patient could try going off of the glimepiride since he is taking Ozempic (she reports she had same symptom and once she stopped glimepiride upset stomach went away). Requesting call back on [phone] cell phone as they are going on vacation. ABBEY Bear Ashley, APRN.CNP 04/27/2024 1:19 PM Signed Can you please call the patient's daughter back and let her know that both the diabetic medications that he is taking right now can both cause upset stomach. Digna Chakraborty APRN.Carmen Lockett LPN 04/27/2024 1:47 PM Signed Patient notified of recommendations, verbalizes understanding of instructions. Carmen Benítez LPN Allergies As of Date: 04/27/2024 Noted Allergy Reaction PENICILLINS 09/15/2005 Date Reviewed: 03/23/2024 Reviewed by: Carmen Benítez LPN - Fully Assessed Reason for Visit: Medication Problem [65] Primary Visit Diagnosis:Atrial fibrillation, unspecified type (HCC) [I48.91] Order(s):apixaban (ELIQUIS) 2.5 mg tab(s)Take 1 tablet by mouth two times a day.Disp: 60 tabletRfl: 11 Prescriptions as of 04/27/2024 - apixaban (ELIQUIS) 2.5 mg tab(s) Take 1 tablet by mouth two times a day. - FLUoxetine (PROZAC) 40 mg capsule Take 1 capsule by mouth once daily. - pantoprazole DR (PROTONIX) 40 mg tablet Take 1 tablet by mouth daily before breakfast. Take on empty stomach, 1/2 hr before meal. - glimepiride (AMARYL) 2 mg tablet Take 1 tablet by mouth daily with breakfast. - FLUoxetine (PROZAC) 20 mg capsule Take 1 capsule by mouth once daily. Take along with 40 mg capsule - lisinopril (ZESTRIL) 40 mg tablet Take 1 tablet by mouth once daily. - semaglutide (OZEMPIC) 0.25 mg or 0.5 mg (2 mg/3 mL) pen Inject 0.5 mg subcutaneously one time a week. - amLODIPine (NORVASC) 5 mg tablet Take 1 tablet by mouth once daily. - alfuzosin SR (UROXATRAL) 10 mg 24 hr tablet Take 1 tablet by mouth once daily. - atorvastatin (LIPITOR) 80 mg tablet Take 1 tablet by mouth once daily. - dutasteride (AVODART) 0.5 mg capsule Take 1 capsule by mouth once daily. - dulaglutide (TRULICITY) 1.5 mg/0.5 mL pen injector Inject 1.5 mg subcutaneously one time a week. Inject once per week. Discard Pen After - ondansetron orally disintegrating (ZOFRAN ODT) 4 mg disintegrating tablet Take 1 tablet by mouth every 6 hours as needed for nausea/vomiting. - betamethasone dipropionate, augmented (DIPROLENE) 0.05 % cream Dr. Bridger Lomax. Apply as needed for eczema. - multivitamin tablet Take 1 tablet by mouth once daily. Meds Comments as of 06/02/2022: Tylenol as needed, Magnesium every other day, Potassium q other day. Antihistamine at bedtime. Problem List As Of Date 04/27/2024 Noted Resolved Unspecified essential hypertension [I10] 02/25/2012 Pure hypercholesterolemia [E78.00] Lumbago [M54.50] 10/14/2005 10/27/2016 Chronic midline low back pain without sciatica *10/14/2005 Generalized osteoarthrosis, unspecified site [M*10/14/2005 Anemia, unspecified [D64.9] 05/01 (more content not included)... Normal [facility] 03-27-2024 [facility] ([id number]) 1935 M Date Time Provider Department 03/27/24 DIGNA CHAKRABORTY [facility] During your visit today, we recorded the following information about you: Digna Chakraborty APRN.FIRE PATROLLER 03/27/2024 5:44 PM Signed Can you please call the patient and let him know that I reviewed his lab and urine test results. Labs were all relatively normal, glucose was elevated. Microanalysis of urine was normal. 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 If he is still having ongoing symptoms I would recommend that he come in to collect another sample being mindful with proper cleansing. At this time I see no causes for his current symptoms. I would recommend follow-up with oncology. Thank you. Digna Chakraborty APRN.Lily Kim RN 03/27/2024 7:23 PM Signed Pts Patti called and is notified of providers results and instructions. She voices understanding. She states they have an appointment with oncology tomorrow. She states she doesn't think he is still having the urinary symptoms. They will call back in if he is. ABBEY Ma Ashley, APRN.CNP 03/29/2024 4:20 PM Signed Noted Digna Chakraborty APRN.CNP Allergies As of Date: 03/27/2024 Noted Allergy Reaction PENICILLINS 09/15/2005 Date Reviewed: 03/23/2024 Reviewed by: Carmen Benítez LPN - Fully Assessed Reason for Visit: Results [95] Cmt: Labs/Urine Prescriptions as of 03/29/2024 - FLUoxetine (PROZAC) 40 mg capsule Take 1 capsule by mouth once daily. - pantoprazole DR (PROTONIX) 40 mg tablet Take 1 tablet by mouth daily before breakfast. Take on empty stomach, 1/2 hr before meal. - glimepiride (AMARYL) 2 mg tablet Take 1 tablet by mouth daily with breakfast. - FLUoxetine (PROZAC) 20 mg capsule Take 1 capsule by mouth once daily. Take along with 40 mg capsule - lisinopril (ZESTRIL) 40 mg tablet Take 1 tablet by mouth once daily. - semaglutide (OZEMPIC) 0.25 mg or 0.5 mg (2 mg/3 mL) pen Inject 0.5 mg subcutaneously one time a week. - amLODIPine (NORVASC) 5 mg tablet Take 1 tablet by mouth once daily. - alfuzosin SR (UROXATRAL) 10 mg 24 hr tablet Take 1 tablet by mouth once daily. - atorvastatin (LIPITOR) 80 mg tablet Take 1 tablet by mouth once daily. - apixaban (ELIQUIS) 2.5 mg tab(s) Take 1 tablet by mouth two times a day. - dutasteride (AVODART) 0.5 mg capsule Take 1 capsule by mouth once daily. - dulaglutide (TRULICITY) 1.5 mg/0.5 mL pen injector Inject 1.5 mg subcutaneously one time a week. Inject once per week. Discard Pen After - ondansetron orally disintegrating (ZOFRAN ODT) 4 mg disintegrating tablet Take 1 tablet by mouth every 6 hours as needed for nausea/vomiting. - betamethasone dipropionate, augmented (DIPROLENE) 0.05 % cream Dr. Bridger Lomax. Apply as needed for eczema. - multivitamin tablet Take 1 tablet by mouth once daily. Meds Comments as of 06/02/2022: Tylenol as needed, Magnesium every other day, Potassium q other day. Antihistamine at bedtime. 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] 09/20/2009 02/25/2012 Seborrheic Keratosis [L82.1] 09/20/2009 02/25/2012 Actinic Damage//Sun-Damaged Skin [L57.8] 09/20/2009 02/25/2012 Solar Lentigines [L81.4] 09/20/2009 02/25/2012 Xerosis cutis [L85.3] 09/20/2009 02/25/2012 Impaired fasting glucose [R73.01] 01/01/2010 Epidermal cyst [L72.0] 09/28/2010 02/25/2012 Leg cramps [R25.2] 06/29/2011 02/25/2012 Essential hypertension, benign [I10] 02/25/2012 Folliculitis [L73.9] 07/14/2012 04/14/2013 Pyoderma, unspecified [L08.0] 07/14/2012 04/14/2013 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] 07/14/2012 04/14/2013 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 Normal [facility] Bacteria Ur Culton Bacteria identified Cx Nom (U) ORGANISM ID: 1 10,000 -<50,000 CFU/ml Mixed microbiota No further workup. Mixed microbiota can be due to???urine???contaminat ion with skin bacteria at time of collection or presence of a long-term urinary catheter. If a new culture is needed, please consider re-education of the patient on proper midstream collection technique or straight catheterization for???urine???collectio n. Normal [facility] Comment on above: Performed By: #### 6 30-4 ####[facility] [id number] [place] [address] [place] CBC W Auto Differential pane l (Bld)on 03-24-2024 Basophils (Bld) [#/Vol] 0.08 10*3/uL Normal <0.11 [facility] Comment on above: Order Comment: Speci men Type: BLOOD SPECIMENOrdering Facility: [facility] Address: [address] [place] [address] Performed By: #### 5 7021-8 ####[facility] [id number] [place] [address] [place] Basophils/100 WBC (Bld) 0.9 % Normal [facility] Comment on above: Order Comment: Speci men Type: BLOOD SPECIMENOrdering Facility: [facility] Address: [address] [place] [address] Performed By: #### 5 7021-8 ####[facility] [id number] [place] [address] [place] Differential cell count method Nom (Bld) Auto Normal [facility] Comment on above: Order Comment: Speci men Type: BLOOD SPECIMENOrdering Facility: [facility] Address: [address] [place] [address] Performed By: #### 5 7021-8 ####[facility] [id number] [place] [address] [place] Eosinophils (Bld) [#/Vol] 0.10 10*3/uL Normal <0.46 [facility] Comment on above: Order Comment: Speci men Type: BLOOD SPECIMENOrdering Facility: [facility] Address: [address] [place] [address] Performed By: #### 5 7021-8 ####[facility] [id number] [place] [address] [place] Eosinophils/100 WBC (Bld) 1.1 % Normal [facility] Comment on above: Order Comment: Speci men Type: BLOOD SPECIMENOrdering Facility: [facility] Address: [address] [place] [address] Performed By: #### 5 7021-8 ####[facility] [id number] [place] [address] [place] Erythrocyte distribution width (RBC) [Ratio] 12.9 % Normal 11.5-15.0 [facility] Comment on above: Order Comment: Speci men Type: BLOOD SPECIMENOrdering Facility: [facility] Address: [address] [place] [address] Performed By: #### 5 7021-8 ####[facility] [id number] [place] [address] [place] Hematocrit (Bld) [Volume fraction] 44.4 % Normal 39.0-51.0 [facility] Comment on above: Order Comment: Speci men Type: BLOOD SPECIMENOrdering Facility: [facility] Address: [address] [place] [address] Performed By: #### 5 7021-8 ####[facility] [id number] [place] [address] [place] Hemoglobin (Bld) [Mass/Vol] 14.2 g/dL Normal 13.0-17.0 [facility] Comment on above: Order Comment: Speci men Type: BLOOD SPECIMENOrdering Facility: [facility] Address: [address] [place] [address] Performed By: #### 5 7021-8 ####[facility] [id number] [place] [address] [place] Immature granulocytes (Bld) [#/Vol] 0.06 10*3/uL Normal <0.10 [facility] Comment on above: Order Comment: Speci men Type: BLOOD SPECIMENOrdering Facility: [facility] Address: [address] [place] [address] Performed By: #### 5 7021-8 ####[facility] [id number] [place] [address] [place] Immature granulocytes/100 WBC (Bld) 0.7 % Normal [facility] Comment on above: Order Comment: Speci men Type: BLOOD SPECIMENOrdering Facility: [facility] Address: [address] [place] [address] Performed By: #### 5 7021-8 ####[facility] [id number] [place] [address] [place] Lymphocytes (Bld) [#/Vol] 1.35 10*3/uL Normal 1.00-4.00 [facility] Comment on above: Order Comment: Speci men Type: BLOOD SPECIMENOrdering Facility: [facility] Address: [address] [place] [address] Performed By: #### 5 7021-8 ####[facility] [id number] [place] [address] [place] Lymphocytes/100 WBC (Bld) 15.3 % Normal [facility] Comment on above: Order Comment: Speci men Type: BLOOD SPECIMENOrdering Facility: [facility] Address: [address] [place] [address] Performed By: #### 5 7021-8 ####[facility] [id number] [place] [address] [place] MCH (RBC) [Entitic mass] 30.5 pg Normal 26.0-34.0 [facility] Comment on above: Order Comment: Speci men Type: BLOOD SPECIMENOrdering Facility: [facility] Address: [address] [place] [address] Performed By: #### 5 7021-8 ####[facility] [id number] [place] [address] [place] MCHC (RBC) [Mass/Vol] 32.0 g/dL Normal 30.5-36.0 [facility] Comment on above: Order Comment: Speci men Type: BLOOD SPECIMENOrdering Facility: [facility] Address: [address] [place] [address] Performed By: #### 5 7021-8 ####[facility] [id number] [place] [address] [place] MCV (RBC) [Entitic vol] 95.3 fL Normal 80.0-100.0 [facility] Comment on above: Order Comment: Speci men Type: BLOOD SPECIMENOrdering Facility: [facility] Address: [address] [place] [address] Performed By: #### 5 7021-8 ####[facility] [id number] [place] [address] [place] Monocytes (Bld) [#/Vol] 0.83 10*3/uL Normal <0.87 [facility] Comment on above: Order Comment: Speci men Type: BLOOD SPECIMENOrdering Facility: [facility] Address: [address] [place] [address] Performed By: #### 5 7021-8 ####[facility] [id number] [place] [address] [place] Monocytes/100 WBC (Bld) 9.4 % Normal [facility] Comment on above: Order Comment: Speci men Type: BLOOD SPECIMENOrdering Facility: [facility] Address: [address] [place] [address] Performed By: #### 5 7021-8 ####[facility] [id number] [place] [address] [place] Neutrophils (Bld) [#/Vol] 6.38 10*3/uL Normal 1.45-7.50 [facility] Comment on above: Order Comment: Speci men Type: BLOOD SPECIMENOrdering Facility: [facility] Address: [address] [place] [address] Performed By: #### 5 7021-8 ####[facility] [id number] [place] [address] [place] Neutrophils/100 WBC (Bld) 72.6 % Normal [facility] Comment on above: Order Comment: Speci men Type: BLOOD SPECIMENOrdering Facility: [facility] Address: [address] [place] [address] Performed By: #### 5 7021-8 ####[facility]IA [id number] [place] [address] [place] Nucleated RBC (Bld) [#/Vol] 10*3/uL Normal <0.01 [facility] Comment on above: Order Comment: Speci men Type: BLOOD SPECIMENOrdering Facility: [facility] Address: [address] [place] [address] Performed By: #### 5 7021-8 ####[facility] [id number] [place] [address] [place] Nucleated RBC/100 WBC (Bld) [Ratio] 0.0 /100 WBC Normal [facility] Comment on above: Order Comment: Speci men Type: BLOOD SPECIMENOrdering Facility: [facility] Address: [address] [place] [address] Performed By: #### 5 7021-8 ####[facility] [id number] [place] [address] [place] Platelet mean volume (Bld) [Entitic vol] 12.3 fL Normal 9.0-12.7 [facility] Comment on above: Order Comment: Speci men Type: BLOOD SPECIMENOrdering Facility: [facility] Address: [address] [place] [address] Performed By: #### 5 7021-8 ####[facility]IA [id number] [place] [address] [place] Platelets (Bld) [#/Vol] 275 10*3/uL Normal 150-400 [facility] Comment on above: Order Comment: Speci men Type: BLOOD SPECIMENOrdering Facility: [facility] Address: [address] [place] [address] Performed By: #### 5 7021-8 ####[facility] [id number] [address] [address] [place] RBC (Bld) [#/Vol] 4.66 10*6/uL Normal 4.20-6.00 [facility] Comment on above: Order Comment: Speci men Type: BLOOD SPECIMENOrdering Facility: [facility] Address: [address] [place] [address] Performed By: #### 5 7021-8 ####[facility] [id number] [place] [address] [place] WBC (Bld) [#/Vol] 8.80 10*3/uL Normal 3.70-11.00 [facility] Comment on above: Order Comment: Speci men Type: BLOOD SPECIMENOrdering Facility: [facility] Address: [address] [place] [address] Performed By: #### 5 7021-8 ####[facility] [id number] [place] [address] [place] Comprehensive metabolic 2000 panelon 03-24-2024 Albumin [Mass/Vol] 4.1 g/dL Normal 3.9-4.9 [facility] Comment on above: Order Comment: Speci men Type: BLOOD SPECIMENOrdering Facility: [facility] Address: [address] [place] [address] Performed By: #### 2 4323-8 ####[facility] [id number] [place] [address] [place] ALP [Catalytic activity/Vol] 87 U/L Normal 38-113 [facility] Comment on above: Order Comment: Speci men Type: BLOOD SPECIMENOrdering Facility: [facility] Address: [address] [place] [address] Performed By: #### 2 4323-8 ####[facility] [id number] [address] [id number] [address] [place] ALT [Catalytic activity/Vol] 33 U/L Normal 10-54 [facility] Comment on above: Order Comment: Speci men Type: BLOOD SPECIMENOrdering Facility: [facility] Address: [address] [place] [id number] Performed By: #### 2 4323-8 ####[facility] [id number] [place] [id number] [place] Anion gap [Moles/Vol] 12 mmol/L Normal 8-15 [facility] Comment on above: Order Comment: Speci men Type: BLOOD SPECIMENOrdering Facility: [facility] Address: [address] [place] [address] Performed By: #### 2 4323-8 ####[facility] [id number] [place] [address] [place] AST [Catalytic activity/Vol] 19 U/L Normal 14-40 [facility] Comment on above: Order Comment: Speci men Type: BLOOD SPECIMENOrdering Facility: [facility] Address: [address] [place] [address] Performed By: #### 2 4323-8 ####[facility] [id number] [place] [address] [place] Bilirubin [Mass/Vol] 0.6 mg/dL Normal 0.2-1.3 [facility] Comment on above: Order Comment: Speci men Type: BLOOD SPECIMENOrdering Facility: [facility] Address: [address] [place] [id number] Performed By: #### 2 4323-8 ####[facility] [id number] [place] [address] [place] Calcium [Mass/Vol] 9.1 mg/dL Normal 8.5-10.2 [facility] Comment on above: Order Comment: Speci men Type: BLOOD SPECIMENOrdering Facility: [facility] Address: [address] [place], [place] [address] Performed By: #### 2 4323-8 ####[facility] [id number] [place] [address] [place] Chloride [Moles/Vol] 105 mmol/L Normal 98-107 [facility] Comment on above: Order Comment: Speci men Type: BLOOD SPECIMENOrdering Facility: [facility] Address: [address] [place] [address] Performed By: #### 2 4323-8 ####[facility] [id number] [place] [address] [place] CO2 [Moles/Vol] 21 mmol/L Low 22-30 [facility] Comment on above: Order Comment: Speci men Type: BLOOD SPECIMENOrdering Facility: [facility] Address: [address] [place] [address] Performed By: #### 2 4323-8 ####[facility] [id number] [place] [address] [place] Creatinine [Mass/Vol] 0.73 mg/dL Normal 0.73-1.22 [facility] Comment on above: Order Comment: Speci men Type: BLOOD SPECIMENOrdering Facility: [facility] Address: [address] [place] [address] Performed By: #### 2 4323-8 ####[facility]IA [id number] [place] [address] [place] Creatinine and Glomerular filtration rate.predicted panel (S/P/Bld) 88 mL/min/1.73m??? Normal >=60 [facility] Comment on above: Order Comment: Speci men Type: BLOOD SPECIMENOrdering Facility: [facility] Address: [address] [place] [address] Result Comment: Angie mated Glomerular Filtration Rate (eGFR) is calculated using the 2020 CKD-EPI creatinine equation. This equation utilizes serum creatinine, sex, and age as parameters. The creatinine assay has traceable calibration to isotope dilution-mass spectrometry. Refer to KDIGO guidelines for clinical interpretation. In patients with unstable renal function, e.g. those with acute kidney injury, the eGFR may not accurately reflect actual GFR. Performed By: #### 2 4323-8 ####[facility] [id number] [place] [address] [place] Glucose [Mass/Vol] 235 mg/dL High 74-99 [facility] Comment on above: Order Comment: Speci men Type: BLOOD SPECIMENOrdering Facility: [facility] Address: [address] [place] [address] Result Comment: The [place] [employer] (ADA) provides guidance for cutoff values for fasting glucose and random glucose. The ADA defines fasting as no caloric intake for at least 8 hours. Fasting plasma glucose results between 100 to 125 mg/dL indicate increased risk for diabetes (prediabetes). Fasting plasma glucose results greater than or equal to 126 mg/dL meet the criteria for diagnosis of diabetes. In the absence of unequivocal hyperglycemia, results should be confirmed by repeat testing. In a patient with classic symptoms of hyperglycemia or hyperglycemic crisis, random plasma glucose results greater than or equal to 200 mg/dL meet the criteria for diagnosis of diabetes. Reference: Standards of Medical Care in Diabetes 2016, [place] [employer]. Diabetes Care. 2016.39(Suppl 1). Performed By: #### 2 4323-8 ####[facility] [id number] [place] [id number] [place] Potassium [Moles/Vol] 4.5 mmol/L Normal 3.7-5.1 [facility] Comment on above: Order Comment: Speci men Type: BLOOD SPECIMENOrdering Facility: [facility] Address: [address] [place] [id number] Performed By: #### 2 4323-8 ####[facility] [id number] [address] [address] [place] Protein [Mass/Vol] 6.9 g/dL Normal 6.3-8.0 [facility] Comment on above: Order Comment: Speci men Type: BLOOD SPECIMENOrdering Facility: [facility] Address: [address] [place] [address] Performed By: #### 2 4323-8 ####[facility] [id number] [place] [address] [place] Sodium [Moles/Vol] 138 mmol/L Normal 136-144 [facility] Comment on above: Order Comment: Speci men Type: BLOOD SPECIMENOrdering Facility: [facility] Address: [address] [place] [address] Performed By: #### 2 4323-8 ####[facility] [id number] [place] [address] [place] Urea nitrogen [Mass/Vol] 16 mg/dL Normal 9-24 [facility] Comment on above: Order Comment: Speci men Type: BLOOD SPECIMENOrdering Facility: [facility] Address: [address] [place] [address] Performed By: #### 2 4323-8 ####[facility] [id number] [place] [address] [place] Urinalysis complete panel (U )on 03-24-2024 Bacteria LM.HPF (Urine sed) [#/Area] Negative Normal Negative [facility] Comment on above: Order Comment: Speci men Type: URINE SPECIMENOrdering Facility: [facility] Address: [address] [place] [address] Performed By: #### 2 4356-8 ####[facility] [id number] [place] [address] [place] Bilirubin Ql (U) Negative Normal Negative [facility] Comment on above: Order Comment: Speci men Type: URINE SPECIMENOrdering Facility: [facility] Address: [address] [place] [address] Performed By: #### 2 4356-8 ####[facility] [id number] [place] [address] [place] Clarity (Unsp spec) Clear Normal Clear [facility] Comment on above: Order Comment: Speci men Type: URINE SPECIMENOrdering Facility: [facility] Address: [address] [place] [address] Performed By: #### 2 4356-8 ####[facility] [id number] [place] [address] [place] Color (U) Yellow Normal Yellow [facility] Comment on above: Order Comment: Speci men Type: URINE SPECIMENOrdering Facility: [facility] Address: [address] [place] [address] Performed By: #### 2 4356-8 ####[facility] [id number] [place] [address] [place] Epithelial cells LM.HPF (Urine sed) [#/Area] None Seen Normal [facility] Comment on above: Order Comment: Speci men Type: URINE SPECIMENOrdering Facility: [facility] Address: [address] [place] [address] Performed By: #### 2 4356-8 ####[facility] [id number] [place] [address] [place] Glucose Test strip (U) [Mass/Vol] Negative Normal Negative [facility] Comment on above: Order Comment: Speci men Type: URINE SPECIMENOrdering Facility: [facility] Address: [address] [place] [address] Performed By: #### 2 4356-8 ####[facility] [id number] [place] [address] [place] Hemoglobin Ql (U) Negative Normal Negative [facility] Comment on above: Order Comment: Speci men Type: URINE SPECIMENOrdering Facility: [facility] Address: [address] [place] [address] Performed By: #### 2 4356-8 ####[facility] [id number] [place] [address] [place] Hyaline casts (Urine sed) [#/Area] 0 /[LPF] Normal 0 /LPF [facility] Comment on above: Order Comment: Speci men Type: URINE SPECIMENOrdering Facility: [facility] Address: [address] [place] [address] Performed By: #### 2 4356-8 ####[facility] [id number] [place] [address] [place] Ketones Ql (U) Negative Normal Negative [facility] Comment on above: Order Comment: Speci men Type: URINE SPECIMENOrdering Facility: [facility] Address: [address] [place] [address] Performed By: #### 2 4356-8 ####[facility] [id number] [place] [address] [place] Leukocyte esterase Test strip Ql (U) Negative Normal Negative [facility] Comment on above: Order Comment: Speci men Type: URINE SPECIMENOrdering Facility: [facility] Address: [address] [place] [address] Performed By: #### 2 4356-8 ####[facility] [id number] [place] [address] [place] Nitrite Ql (U) Negative Normal Negative [facility] Comment on above: Order Comment: Speci men Type: URINE SPECIMENOrdering Facility: [facility] Address: [address] [place] [address] Performed By: #### 2 4356-8 ####[facility] [id number] [place] [address] [place] pH (U) 6.0 [pH] Normal <8.5 [facility] Comment on above: Order Comment: Speci men Type: URINE SPECIMENOrdering Facility: [facility] Address: [address] [place] [address] Performed By: #### 2 4356-8 ####[facility] [id number] [place] [address] [place] Protein (U) [Mass/Vol] Negative Normal Negative [facility] Comment on above: Order Comment: Speci men Type: URINE SPECIMENOrdering Facility: [facility] Address: [address] [place] [address] Performed By: #### 2 4356-8 ####[facility]IA [id number] [place] [address] [place] RBC LM.HPF (Urine sed) [#/Area] 0-2 /HPF Normal 0-2 /HPF [facility] Comment on above: Order Comment: Speci men Type: URINE SPECIMENOrdering Facility: [facility] Address: [address] [place] [address] Performed By: #### 2 4356-8 ####[facility] [id number] [place] [address] [place] Specific gravity (U) [Rel density] 1.030 Normal 1.005-1.030 [facility] Comment on above: Order Comment: Speci men Type: URINE SPECIMENOrdering Facility: [facility] Address: [address] [place] [address] Performed By: #### 2 4356-8 ####[facility]IA [id number] [place] [address] [place] Urobilinogen Ql (U) 1.0 EU/dL Normal 0.2-1.0 EU/dL [facility] Comment on above: Order Comment: Speci men Type: URINE SPECIMENOrdering Facility: [facility] Address: [address] [place] [address] Performed By: #### 2 4356-8 ####[facility]IA [id number] [place] [address] [place] WBC LM.HPF (Urine sed) [#/Area] 0-5 /HPF Normal 0-5 /HPF [facility] Comment on above: Order Comment: Speci men Type: URINE SPECIMENOrdering Facility: [facility] Address: [address] [place] [address] Performed By: #### 2 4356-8 ####[facility] [id number] [address] [place] CNOVon 03-23-2024 CNOV Office Visit (FAMWS ) ZACHARY MCDERMOTT ([id number]) 1935 M Date Time Provider Department 03/23/24 2:00 PM [facility] During your visit today, we recorded the following information about you: Temperature Pulse Respiration Blood pressure 99 degrees 97/minute 16/minute 122/66 Weight 79.4 kg Digna Chakraborty APRN.FIRE PATROLLER 03/23/2024 3:32 PM Signed This is a 88 year old male who presents today with: Patient presents with: Acute Visit: feeling unwell HISTORY OF PRESENT ILLNESS: Zachary Mcdermott is a 88 year old male. Patient presents with: Acute Visit: feeling unwell Here in office for nausea and fatigue. Symptoms started several years ago after stroke, refers he never returned to baseline. Sleeping a lot. Symptoms seem to be progressing. Waking up feeling tired, no snoring. Night sweats for the past year. Nausea that seems to wax and wane. Does not seem related to food. Using zofran as needed which is helpeful. BM's normal. Urine does seem smelly. No abdominal pain. 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 Follow up every 6 months. Seeing oncology radiologist. Recently had CT scan, which showed 6.4 x 5.3 x 7.1 cm mass into the right chest. Imaging was stable. Refers that the sarcoma is growing. Difficulty targeting treatment in that area. Was told he has a slow growing tumor. History of GERD, taking Protonix 40 mg daily. Type II diabetic, taking glimepiride 2 mg daily, Ozempic 0.25 mg weekly. BPH, taking Uroxatral 10 mg daily. Used to follow with urology, Dr. Bonilla. PAST MEDICAL HISTORY: PAST MEDICAL HISTORY Diagnosis Date Actinic Damage//Sun-Damaged [...] Lumbago 10/14/2005 Pure hypercholesterolemia Unspecified essential hypertension PAST SURGICAL HISTORY Procedure Laterality Date COLONOSCOPY FLX DX W/COLLJ SPEC WHEN PFRMD 04/09/2009 PAST SURGICAL HISTORY OF lipoma, neck PAST SURGICAL HISTORY OF 06/11/1980 lumbar laminotomy REMOVAL GALLBLADDER 03/24/2022 ALLERGIES Penicillins MEDICATIONS Current Outpatient Medications Medication Sig FLUoxetine (PROZAC) 40 mg capsule Take 1 capsule by mouth once daily. pantoprazole DR (PROTONIX) 40 mg tablet Take 1 tablet by mouth daily before breakfast. Take on empty stomach, 1/2 hr before meal. glimepiride (AMARYL) 2 mg tablet Take 1 tablet by mouth daily with breakfast. FLUoxetine (PROZAC) 20 mg capsule Take 1 capsule by mouth once daily. Take along with 40 mg capsule lisinopril (ZESTRIL) 40 mg tablet Take 1 tablet by mouth once daily. semaglutide (OZEMPIC) 0.25 mg or 0.5 mg (2 mg/3 mL) pen Inject 0.5 mg subcutaneously one time a week. amLODIPine (NORVASC) 5 mg tablet Take 1 tablet by mouth once daily. alfuzosin SR (UROXATRAL) 10 mg 24 hr tablet Take 1 tablet by mouth once daily. atorvastatin (LIPITOR) 80 mg tablet Take 1 tablet by mouth once daily. apixaban (ELIQUIS) 2.5 mg tab(s) Take 1 tablet by mouth two times a day. dutasteride (AVODART) 0.5 mg capsule Take 1 capsule by mouth once daily. dulaglutide (TRULICITY) 1.5 mg/0.5 mL pen injector Inject 1.5 mg subcutaneously one time a week. Inject once per week. Discard Pen After ondansetron orally disintegrating (ZOFRAN ODT) 4 mg disintegrating tablet Take 1 tablet by mouth every 6 hours as needed for nausea/vomiting. betamethasone dipropionate, augmented (DIPROLENE) 0.05 % cream Dr. Bridger Lomax. Apply as needed for eczema. multivitamin tablet Take 1 tablet by mouth once daily. No current facility-administered medications for this visit. FAMILY HISTORY Problem Relation Age of Onset other (Melanoma) Mother Diabetes Father lung cancer/chf/starvation Diabetes Sister Diabetes Paternal Grandfather Social History Tobacco Use Smoking status: Former Packs/day: 2.00 Years: 10.00 Additional pack years: 0.00 Total pack years: 20.00 Types: Cigarettes Quit date: 10/11/1969 Years since quittin.4 Smokeless tobacco: Never Vaping Use Vaping Use: Never used Substance Use Topics Alcohol use: Yes Comment: ocass REVIEW OF SYSTEMS GENERAL: + Fatigue HEENT: Negative for frequent or significant headaches, No changes in hearing or vision. NECK: Negative for lumps, goiter, pain and significant neck swelling RESPIRATORY: Negative for cough, hemoptysis, wheezing, dyspnea or shortness of breath CARDIOVA (more content not included)... Normal [facility] CNOVon 12-28-2023 CNOV Office Visit (FAMPWS ) ZACHARY MCDERMOTT ([id number]) 1935 M Date Time Provider Department 12/28/23 3:00 PM HEIDY SINGLETON During your visit today, we recorded the following information about you: Pulse Respiration Blood pressure Weight 95/minute 16/minute 108/82 79.4 kg Heidy Singleton APRN.CNP 12/28/2023 4:21 PM Signed This is a 88 year old male who presents today with: Patient presents with: Recheck: 6 month follow up HISTORY OF PRESENT ILLNESS: Zachary Mcdermott is a 88 year old male. Patient presents with: Recheck: 6 month follow up HTN: Patient is compliant with meds Yes Monitors bp at home: No. Denies side effects: No. Chest pain: No. Dyspnea: with exertion. Edema: No. Palpitations: No. Syncope: No. Headache: No. Dizziness: not as a normal. Chronic anticoagulation: No abnormal s/s of blood. DM: Reports overall feeling well. Medication side effects: No. Home sugar checks: no Hypoglycemic spells: No. Watching diet: No. Unexpected weight loss: No. Polyuria, polydipsia: Yes. Some nocturia. Vision Changes: eye drops to reduce pressure. Foot lesions or numbness or pain: No. Recently changed from trulicity 1.5 mg to ozempic 0.25 mg d/t lack of availability of the ozempic. Mood: Taking prozac. Has some trouble with sleep. Gets anxiety/depression. Chondrosarcoma Follows with oncology. Unsure of plan at this time. PAST MEDICAL HISTORY: PAST MEDICAL HISTORY Diagnosis Date Actinic Damage//Sun-Damaged [...] Lumbago 10/14/2005 Pure hypercholesterolemia Unspecified essential hypertension PAST SURGICAL HISTORY Procedure Laterality Date COLONOSCOPY FLX DX W/COLLJ SPEC WHEN PFRMD 04/09/2009 PAST SURGICAL HISTORY OF lipoma, neck PAST SURGICAL HISTORY OF 06/11/1980 lumbar laminotomy REMOVAL GALLBLADDER 03/24/2022 ALLERGIES Penicillins MEDICATIONS Current Outpatient Medications Medication Sig FLUoxetine (PROZAC) 20 mg capsule Take 1 capsule by mouth once daily. Take along with 40 mg capsule lisinopril (ZESTRIL) 40 mg tablet Take 1 tablet by mouth once daily. semaglutide (OZEMPIC) 0.25 mg or 0.5 mg (2 mg/3 mL) pen Inject 0.5 mg subcutaneously one time a week. amLODIPine (NORVASC) 5 mg tablet Take 1 tablet by mouth once daily. alfuzosin SR (UROXATRAL) 10 mg 24 hr tablet Take 1 tablet by mouth once daily. atorvastatin (LIPITOR) 80 mg tablet Take 1 tablet by mouth once daily. apixaban (ELIQUIS) 2.5 mg tab(s) Take 1 tablet by mouth two times a day. dutasteride (AVODART) 0.5 mg capsule Take 1 capsule by mouth once daily. dulaglutide (TRULICITY) 1.5 mg/0.5 mL pen injector Inject 1.5 mg subcutaneously one time a week. Inject once per week. Discard Pen After FLUoxetine (PROZAC) 40 mg capsule take 1 capsule by mouth once daily ondansetron orally disintegrating (ZOFRAN ODT) 4 mg disintegrating tablet Take 1 tablet by mouth every 6 hours as needed for nausea/vomiting. pantoprazole DR (PROTONIX) 40 mg tablet Take 1 tablet by mouth daily before breakfast. Take on empty stomach, 1/2 hr before meal. glimepiride (AMARYL) 2 mg tablet Take 1 tablet by mouth daily with breakfast. doxycycline (VIBRA-TABS) 100 mg tablet Take 1 tablet by mouth twice daily. metFORMIN ER (GLUCOPHAGE XR) 500 mg 24 hr tablet Take 2 tablets by mouth with breakfast betamethasone dipropionate, augmented (DIPROLENE) 0.05 % cream Dr. Bridger Lomax. Apply as needed for eczema. multivitamin tablet Take 1 tablet by mouth once daily. No current facility-administered medications for this visit. FAMILY HISTORY Problem Relation Age of Onset other (Melanoma) Mother Diabetes Father lung cancer/chf/starvation Diabetes Sister Diabetes Paternal Grandfather Social History Tobacco Use Smoking status: Former Packs/day: 2.00 Years: 10.00 Additional pack years: 0.00 Total pack years: 20.00 Types: Cigarettes Quit date: 10/11/1969 Years since quittin.2 Smokeless tobacco: Never Vaping Use Vaping Use: Never used Substance Use Topics Alcohol use: Yes Comment: ocass EXAM: BP 108/82 Pulse 95 Resp 16 Wt 79.4 kg (175 lb) SpO2 97% BMI 26.61 kg/m? PHYSICAL EXAM: General Appearance: Well appearing, alert, in no acute distress, well-hydrated, well nourished.. Skin: Skin color, texture, turgor normal, no suspicious rashes or lesions. Head: Normoceph (more content not included)... Normal [facility] CBC panel Auto (Bld)on 12-23 Erythrocyte distribution width (RBC) [Ratio] 13.4 % Normal 11.5-15.0 [facility] Comment on above: Order Comment: Julito ann Type: BLOOD SPECIMENOrdering Facility: [facility] Address: [address] [place] [address] Performed By: #### 5 8410-2 ####[facility]CL[facility] [id number] [place] [address] [place] Hematocrit (Bld) [Volume fraction] 43.6 % Normal 39.0-51.0 [facility] Comment on above: Order Comment: Julito ann Type: BLOOD SPECIMENOrdering Facility: [facility] Address: [address] [place] [address] Performed By: #### 5 8410-2 ####[facility] [id number] [place] [address] [place] Hemoglobin (Bld) [Mass/Vol] 14.4 g/dL Normal 13.0-17.0 [facility] Comment on above: Order Comment: Speci men Type: BLOOD SPECIMENOrdering Facility: [facility] Address: [address] [place] [address] Performed By: #### 5 8410-2 ####[facility] LABIA [id number] [place] [address] [place] MCH (RBC) [Entitic mass] 31.0 pg Normal 26.0-34.0 [facility] Comment on above: Order Comment: Speci men Type: BLOOD SPECIMENOrdering Facility: [facility] Address: [address] [place] [address] Performed By: #### 5 8410-2 ####[facility] LABIA [id number] [place] [address] [place] MCHC (RBC) [Mass/Vol] 33.0 g/dL Normal 30.5-36.0 [facility] Comment on above: Order Comment: Speci men Type: BLOOD SPECIMENOrdering Facility: [facility] Address: [address] [place] [address] Performed By: #### 5 8410-2 ####[facility] LABIA [id number] [place] [address] [place] MCV (RBC) [Entitic vol] 94.0 fL Normal 80.0-100.0 [facility] Comment on above: Order Comment: Speci men Type: BLOOD SPECIMENOrdering Facility: [facility] Address: [address] [place] [address] Performed By: #### 5 8410-2 ####[facility] LABIA [id number] [place] [address] [place] Nucleated RBC (Bld) [#/Vol] 10*3/uL Normal <0.01 [facility] Comment on above: Order Comment: Speci men Type: BLOOD SPECIMENOrdering Facility: [facility] Address: [address] [place] [address] Performed By: #### 5 8410-2 ####[facility]CL[facility] [id number] [address] [address] [place] Platelet mean volume (Bld) [Entitic vol] 11.7 fL Normal 9.0-12.7 [facility] Comment on above: Order Comment: Speci men Type: BLOOD SPECIMENOrdering Facility: [facility] Address: [address] [place] [address] Performed By: #### 5 8410-2 ####[facility] [id number] [place] [address] [place] Platelets (Bld) [#/Vol] 248 10*3/uL Normal 150-400 [facility] Comment on above: Order Comment: Speci men Type: BLOOD SPECIMENOrdering Facility: [facility] Address: [address] [place] [address] Performed By: #### 5 8410-2 ####[facility]IA [id number] [place] [address] [place] RBC (Bld) [#/Vol] 4.64 10*6/uL Normal 4.20-6.00 [facility] Comment on above: Order Comment: Speci men Type: BLOOD SPECIMENOrdering Facility: [facility] Address: [address] [place] [address] Performed By: #### 5 8410-2 ####[facility]IA [id number] [place] [address] [place] WBC (Bld) [#/Vol] 9.12 10*3/uL Normal 3.70-11.00 [facility] Comment on above: Order Comment: Speci men Type: BLOOD SPECIMENOrdering Facility: [facility] Address: [address] [place] [address] Performed By: #### 5 8410-2 ####[facility] LABIA [id number] [place] [address] [place] Comprehensive metabolic 2000 panelon 12-24-2023 Albumin [Mass/Vol] 4.1 g/dL Normal 3.9-4.9 [facility] Comment on above: Order Comment: Speci men Type: BLOOD SPECIMENOrdering Facility: [facility] Address: [address] [place] [address] Performed By: #### 2 4323-8, 55604-5 ####[facility] [id number] [place] [address] [place] ALP [Catalytic activity/Vol] 83 U/L Normal 38-113 [facility] Comment on above: Order Comment: Speci men Type: BLOOD SPECIMENOrdering Facility: [facility] Address: [address] [place] [address] Performed By: #### 2 4323-8, 52927-0 ####[facility]CL[facility] [id number] [place] [address] [place] ALT [Catalytic activity/Vol] 49 U/L Normal 10-54 [facility] Comment on above: Order Comment: Speci men Type: BLOOD SPECIMENOrdering Facility: [facility] Address: [address] [place] [address] Performed By: #### 2 4323-8, 16521-8 ####[facility] [id number] [place] [address] [place] Anion gap [Moles/Vol] 11 mmol/L Normal 9-18 [facility] Comment on above: Order Comment: Speci men Type: BLOOD SPECIMENOrdering Facility: [facility] Address: [address] [place] [address] Performed By: #### 2 4323-8, 42497-5 ####[facility] [id number] [place] [address] [place] AST [Catalytic activity/Vol] 28 U/L Normal 14-40 [facility] Comment on above: Order Comment: Speci men Type: BLOOD SPECIMENOrdering Facility: [facility] Address: [address] [place] [id number] Performed By: #### 2 4323-8, 81731-8 ####[facility] [id number] [address] [address] [place] Bilirubin [Mass/Vol] 0.7 mg/dL Normal 0.2-1.3 [facility] Comment on above: Order Comment: Speci men Type: BLOOD SPECIMENOrdering Facility: [facility] Address: [address] [place], [place] [address] Performed By: #### 2 4323-8, 41428-6 ####[facility] [id number] [place] [address] [place] Calcium [Mass/Vol] 9.6 mg/dL Normal 8.5-10.2 [facility] Comment on above: Order Comment: Speci men Type: BLOOD SPECIMENOrdering Facility: [facility] Address: [address] [place], [place] [address] Performed By: #### 2 4323-8, 38092-0 ####[facility] [id number] [place] [address] [place] Chloride [Moles/Vol] 105 mmol/L Normal 97-105 [facility] Comment on above: Order Comment: Speci men Type: BLOOD SPECIMENOrdering Facility: [facility] Address: [address] [place] [id number] Performed By: #### 2 4323-8, 76146-2 ####[facility] [id number] [place] [address] [place] CO2 [Moles/Vol] 24 mmol/L Normal 22-30 [facility] Comment on above: Order Comment: Speci men Type: BLOOD SPECIMENOrdering Facility: [facility] Address: [address] [place], [place] [address] Performed By: #### 2 4323-8, 85817-2 ####[facility] LABIA [id number] [place] [address] [place] Creatinine [Mass/Vol] 0.74 mg/dL Normal 0.73-1.22 [facility] Comment on above: Order Comment: Speci men Type: BLOOD SPECIMENOrdering Facility: [facility] Address: [address] [place] [address] Performed By: #### 2 4323-8, ####[facility] LABIA [id number] [place] [address] [place] Creatinine and Glomerular filtration rate.predicted panel (S/P/Bld) 87 mL/min/1.73m??? Normal >=60 [facility] Comment on above: Order Comment: [facility] Type: BLOOD SPECIMENOrdering Facility: [facility] Address: [address] [place] [address] Result Comment: Angie mated Glomerular Filtration Rate (eGFR) is calculated using the 2020 CKD-EPI creatinine equation. This equation utilizes serum creatinine, sex, and age as parameters. The creatinine assay has traceable calibration to isotope dilution-mass spectrometry. Refer to KDIGO guidelines for clinical interpretation. In patients with unstable renal function, e.g. those with acute kidney injury, the eGFR may not accurately reflect actual GFR. Performed By: #### 2 4323-8, 97028-3 ####[facility] LABIA [id number] [place] [address] [place] Glucose [Mass/Vol] 181 mg/dL High 74-99 [facility] Comment on above: Order Comment: Tyari marissa Type: BLOOD SPECIMENOrdering Facility: [facility] Address: [address] [place] [address] Result Comment: The [place] Diabetes Association (ADA) provides guidance for cutoff values for fasting glucose and random glucose. The ADA defines fasting as no caloric intake for at least 8 hours. Fasting plasma glucose results between 100 to 125 mg/dL indicate increased risk for diabetes (prediabetes). Fasting plasma glucose results greater than or equal to 126 mg/dL meet the criteria for diagnosis of diabetes. In the absence of unequivocal hyperglycemia, results should be confirmed by repeat testing. In a patient with classic symptoms of hyperglycemia or hyperglycemic crisis, random plasma glucose results greater than or equal to 200 mg/dL meet the criteria for diagnosis of diabetes. Reference: Standards of Medical Care in Diabetes 2016, [place] Diabetes Association. Diabetes Care. 2016.39(Suppl 1). Performed By: #### 2 4323-8, 18476-4 ####[facility] [id number] [place] [address] [place] Potassium [Moles/Vol] 4.9 mmol/L Normal 3.7-5.1 [facility] Comment on above: Order Comment: Speci men Type: BLOOD SPECIMENOrdering Facility: [facility] Address: [address] [place] [address] Performed By: #### 2 4328, ####[facility]CL[facility] [id number] [place] [address] [place] Protein [Mass/Vol] 7.0 g/dL Normal 6.3-8.0 [facility] Comment on above: Order Comment: Speci men Type: BLOOD SPECIMENOrdering Facility: [facility] Address: [address] [place] [address] Performed By: #### 2 43238, ####[facility]CL[facility] [id number] [place] [address] [place] Sodium [Moles/Vol] 140 mmol/L Normal 136-144 [facility] Comment on above: Order Comment: Speci men Type: BLOOD SPECIMENOrdering Facility: [facility] Address: [address] [place] [address] Performed By: #### 2 4323-8, ####[facility]CL[facility] [id number] [place] [id number] [place] Urea nitrogen [Mass/Vol] 15 mg/dL Normal 9-24 [facility] Comment on above: Order Comment: Julito men Type: BLOOD SPECIMENOrdering Facility: [facility] Address: [address] [place] [address] Performed By: #### 2 4323-8, 32482-4 ####[facility] [id number] [place] [address] [place] HbA1c (Bld)on 12-24-2023 Average glucose Estimated from glycated hemoglobin (Bld) [Mass/Vol] 171 mg/dL Normal [facility] Comment on above: Order Comment: Julito ann Type: BLOOD SPECIMENOrdering Facility: [facility] Address: [address] [place] [address] Result Comment: eAG: (Estimated average glucose) is a calculated value from HgbA1c and is chain sales representative of the average blood glucose level in the last 2-3 month period. Performed By: #### 5 5454-3 ####[facility]IA [id number] [place] [address] [place] HbA1c (Bld) [Mass fraction] 7.6 % High 4.3-5.6 [facility] Comment on above: Order Comment: Julito ann Type: BLOOD SPECIMENOrdering Facility: [facility] Address: [address] [place] [address] Result Comment: [place] Diabetes Association guidelines indicate that patients with HgbA1c in the range 5.7-6.4% are at increased risk for development of diabetes, and intervention by lifestyle modification may be beneficial. HgbA1c greater or equal to 6.5% is considered diagnostic of diabetes. Performed By: #### 5 5454-3 ####[facility] LABIA [id number] [place] [id number] [place] Lipid 1996 panelon 4 Cholesterol [Mass/Vol] 95 mg/dL Normal <200 [facility] Comment on above: Order Comment: Julito men Type: BLOOD SPECIMENOrdering Facility: [facility] Address: [address] [place] [address] Result Comment: <200 mg/dL, Desirable 200-239 mg/dL, Borderline high >239 mg/dL, High Performed By: #### 2 4323-8, 51258-0 ####[facility]CL[facility] [id number] [address] [place] Cholesterol in HDL [Mass/Vol] 33 mg/dL Low >39 [facility] Comment on above: Order Comment: Speci men Type: BLOOD SPECIMENOrdering Facility: [facility] Address: [address] [place] [address] Result Comment: 40-5 9 mg/dL, Acceptable >59 mg/dL, High: Negative risk factor for coronary heart disease <40 mg/dL, Low: Positive risk factor for coronary heart disease Performed By: #### 2 4323-8, 39335-8 ####[facility]CL[facility] [id number] [place] [address] [place] Cholesterol in LDL [Mass/Vol] 35 mg/dL Normal <100 [facility] Comment on above: Order Comment: Julito ann Type: BLOOD SPECIMENOrdering Facility: [facility] Address: [address] [place] [address] Result Comment: <100 mg/dL, Optimal 100-129 mg/dL, Near optimal/above optimal 130-159 mg/dL, Borderline high 160-189 mg/dL, High >189 mg/dL, Very high Secondary prevention optimal LDL Cholesterol levels are recommended to be < 70 mg/dL Performed By: #### 2 4323-8, 31266-2 ####[facility]CL[facility] [id number] [place] [address] [place] Cholesterol in LDL/Cholesterol in HDL [Mass ratio] 1.06 {ratio} Normal <2.54 [facility] Comment on above: Order Comment: Julito men Type: BLOOD SPECIMENOrdering Facility: [facility] Address: [address] [place] [address] Result Comment: Refestelle maderace: 1. National Cholesterol Education Program ATP III Guideline At-A-Glance Quick Desk Reference: National Heart, Lung, and Blood Marshall. National Institutes of Health. 2001: NIH Publication No. 01-3305. 2. An International Atherosclerosis Society position paper: global recommendations for the management of dyslipidemia: executive summary, Atherosclerosis. 2014: 232(2):410-413. Performed By: #### 2 4323-8, 34253-2 ####[facility]CL[facility] [id number] [place] [address] [place] Cholesterol in VLDL [Mass/Vol] 27 mg/dL Normal <30 [facility] Comment on above: Order Comment: Speci men Type: BLOOD SPECIMENOrdering Facility: [facility] Address: [address] [place] [address] Performed By: #### 2 4328, ####[facility]CL[facility] [id number] [place] [address] [place] Cholesterol non HDL [Mass/Vol] 62 mg/dL Normal <130 [facility] Comment on above: Order Comment: Speci men Type: BLOOD SPECIMENOrdering Facility: [facility] Address: [address] [place] [address] Result Comment: <130 mg/dL, Optimal 130-159 mg/dL, Near optimal/above optimal 160-189 mg/dL, Borderline high 190-219 mg/dL, High >219 mg/dL, Very high Secondary prevention optimal non HDL Cholesterol levels are recommended to be <100 mg/dL Performed By: #### 2 4323-05, ####[facility] [id number] [place] [address] [place] Cholesterol.total/Cho lesterol in HDL [Mass ratio] 2.88 {ratio} Normal <5.10 [facility] Comment on above: Order Comment: Speci men Type: BLOOD SPECIMENOrdering Facility: [facility] Address: [address] [place] [address] Performed By: #### 2 4328, 95727-2 ####[facility] [id number] [place] [address] [place] FASTING TIME 13 hrs Normal [facility] Comment on above: Order Comment: Speci men Type: BLOOD SPECIMENOrdering Facility: [facility] Address: [address] [place] [address] Performed By: #### 2 4323-8, 82082-0 ####[facility] [id number] [place] [address] [place] Triglyceride [Mass/Vol] 135 mg/dL Normal <150 [facility] Comment on above: Order Comment: Speci men Type: BLOOD SPECIMENOrdering Facility: [facility] Address: [address] [place] [address] Result Comment: <150 mg/dL, Normal 150-199 mg/dL, Borderline high 200-499 mg/dL, High >499 mg/dL, Very high Performed By: #### 2 4323-8, 05064-0 ####[facility] [id number] [place] [address] [place] CNOVon 12-11-2023 CNOV Office Visit (FAMPWS ) ZACHARY MCDERMOTT ([id number]) 1935 M Date Time Provider Department 12/11/23 11:00 AM EMILIA JACOBWS During your visit today, we recorded the following information about you: Pulse Respiration Blood pressure Weight 96/minute 18/minute 118/78 81.2 kg Emilia Jacob MD 12/11/2023 12:01 PM Signed Chief Complaint Patient presents with: Cough HPI Zachary Mcdermott is a 88 year old male who presents here today for an acute visit. Pt her today with his for an acute visit. Pt c/o a non productive cough, nasal drainage, dry mouth and sob with exertion. Reports this has been ongoing for a couple of weeks, lingering and not feeling well. At times will feel weak and very tired. Has been using Tylenol Extra Strength, no cold medication given to him. Did have a fall on 11/16/23 and suffered from a broken rib. Doing well with this, using pain medication at night only. No fevers. He did stop taking benadryl for his allergies. Past medical history, appointments, medications, allergies reviewed. [...] Paternal Grandfather Patient Allergies ALLERGIES Allergen Reactions Penicillins Current Medications Current Outpatient Medications on File Prior to Visit Medication Sig semaglutide (OZEMPIC) 0.25 mg or 0.5 mg (2 mg/3 mL) pen Inject 0.5 mg subcutaneously one time a week. amLODIPine (NORVASC) 5 mg tablet Take 1 tablet by mouth once daily. alfuzosin SR (UROXATRAL) 10 mg 24 hr tablet Take 1 tablet by mouth once daily. atorvastatin (LIPITOR) 80 mg tablet Take 1 tablet by mouth once daily. apixaban (ELIQUIS) 2.5 mg tab(s) Take 1 tablet by mouth two times a day. FLUoxetine (PROZAC) 20 mg capsule Take 1 capsule by mouth once daily. Take along with 40 mg capsule dutasteride (AVODART) 0.5 mg capsule Take 1 capsule by mouth once daily. dulaglutide (TRULICITY) 1.5 mg/0.5 mL pen injector Inject 1.5 mg subcutaneously one time a week. Inject once per week. Discard Pen After FLUoxetine (PROZAC) 40 mg capsule take 1 capsule by mouth once daily ondansetron orally disintegrating (ZOFRAN ODT) 4 mg disintegrating tablet Take 1 tablet by mouth every 6 hours as needed for nausea/vomiting. pantoprazole DR (PROTONIX) 40 mg tablet Take 1 tablet by mouth daily before breakfast. Take on empty stomach, 1/2 hr before meal. glimepiride (AMARYL) 2 mg tablet Take 1 tablet by mouth daily with breakfast. lisinopril (ZESTRIL, PRINIVIL) 40 mg tablet Take 1 tablet by mouth once daily. doxycycline (VIBRA-TABS) 100 mg tablet Take 1 [...] by mouth every 6 hours as needed. No current facility-administered medications on file prior to visit. Social History Social History Tobacco Use Smoking status: Former Packs/day: 2.00 Years: 10.00 Additional pack years: 0.00 Total pack years: 20.00 Types: Cigarettes Quit date: 10/11/1969 Years since quittin.2 Smokeless tobacco: Never Vaping Use Vaping Use: Never used Substance Use Topics Alcohol use: Yes Comment: ocass EXAM: BP 118/78 (BP Site: Left Arm, BP Position: Sitting, BP Cuff Size: Regular Adult) Pulse 96 Resp 18 Wt 81.2 kg (179 lb) SpO2 94% BMI 27.22 kg/m? General Appearance: Well appearing, alert, in no acute distress, well-hydrated, well nourished.. Lungs: Lungs clear to auscultation. No wheezing, rhonchi, rales.. Heart: RRR without murmur, gallop, or rubs. No ectopy. Health Main (more content not included)... [facility] (FAMPWS[facility] ZACHARY MCDERMOTT ([id number]) 1935 M Date Time Provider Department 11/24/23 EMILIA JACOB [facility] During your visit today, we recorded the following information about you: Cherelle Sahu 11/24/2023 2:36 PM Signed Patti is calling Emilia Jacob MD today with concern regarding Medication Problem: Trulicity is still out of stock. Asking for clinical to please call and advise on what to do. Patient has been identified by name and birthdate. Duration of symptoms: N/A Person calling: spouse: Patti Call patient at: at home [phone] (home) [phone] (cell) Was an appointment scheduled: No Closing statement: Results or non-symptom based questions: Thank you for calling [facility], your call will be returned within the next business day. Petra Stiles MA 11/24/2023 3:32 PM Signed Phone call to patient, states that they have called multiple pharmacy's and the are all months out on backorder for Trulicity. Please advise. KELLY Soto Mark D, MD 11/26/2023 3:28 PM Signed He may try switching to Ozempic as ordered, if this is available MD Nick Maxwell Ma, Kathryn 11/26/2023 3:31 PM Signed Message left for pt to call back. Fadia Castillo Ma, Mayn 11/29/2023 2:02 PM Signed Spoke with Patti, pt took 1 dose of Ozempic. Carolyn Romero Ma Allergies As of Date: 11/24/2023 Noted Allergy Reaction PENICILLINS 09/15/2005 Date Reviewed: 11/19/2023 Reviewed by: Serina Garcia Ma - Fully Assessed Reason for Visit: Medication Problem [65] Cmt: Re: Trulicity still out of stock Primary Visit Diagnosis:Type 2 diabetes mellitus without complication, without long-term current use of insulin (HCC) [E11.9] Order(s):semaglutide (OZEMPIC) 0.25 mg or 0.5 mg (2 mg/3 mL) penInject 0.5 mg subcutaneously one time a week.Disp: 3 mLRfl: 5 Prescriptions as of 11/29/2023 - semaglutide (OZEMPIC) 0.25 mg or 0.5 mg (2 mg/3 mL) pen Inject 0.5 mg subcutaneously one time a week. - amLODIPine (NORVASC) 5 mg tablet Take 1 tablet by mouth once daily. - alfuzosin SR (UROXATRAL) 10 mg 24 hr tablet Take 1 tablet by mouth once daily. - atorvastatin (LIPITOR) 80 mg tablet Take 1 tablet by mouth once daily. - apixaban (ELIQUIS) 2.5 mg tab(s) Take 1 tablet by mouth two times a day. - FLUoxetine (PROZAC) 20 mg capsule Take 1 capsule by mouth once daily. Take along with 40 mg capsule - dutasteride (AVODART) 0.5 mg capsule Take 1 capsule by mouth once daily. - dulaglutide (TRULICITY) 1.5 mg/0.5 mL pen injector Inject 1.5 mg subcutaneously one time a week. Inject once per week. Discard Pen After - FLUoxetine (PROZAC) 40 mg capsule take 1 capsule by mouth once daily - ondansetron orally disintegrating (ZOFRAN ODT) 4 mg disintegrating tablet Take 1 tablet by mouth every 6 hours as needed for nausea/vomiting. - pantoprazole DR (PROTONIX) 40 mg tablet Take 1 tablet by mouth daily before breakfast. Take on empty stomach, 1/2 hr before meal. - glimepiride (AMARYL) 2 mg tablet Take 1 tablet by mouth daily with breakfast. - lisinopril (ZESTRIL, PRINIVIL) 40 mg tablet Take 1 tablet by mouth once daily. - doxycycline (VIBRA-TABS) 100 mg tablet Take 1 tablet by mouth twice daily. - metFORMIN ER (GLUCOPHAGE XR) 500 mg 24 hr tablet Take 2 tablets by mouth with breakfast - betamethasone dipropionate, augmented (DIPROLENE) 0.05 % cream Dr. Bridger Lomax. Apply as needed for eczema. - multivitamin tablet Take 1 tablet by mouth once daily. - diphenhydrAMINE (BENADRYL) 25 mg capsule Take 1 capsule by mouth every 6 hours as needed. Meds Comments as of 06/02/2022: Tylenol as needed, Magnesium every other day, Potassium q other day. Antihistamine at bedtime. Problem List As Of Date 11/24/2023 Noted Resolved Unspecified essential hypertension [I10] 02/25/2012 Pure hypercholesterolemia [E78.00] Lumbago [M54.50] 10/14/2005 10/27/2016 Chronic midline low back pain without sciatica *10/14/2005 Generalized osteoarthrosis, unspecified site [M*10/14/2005 Anemia, unspecified [D64.9] 05/01/2009 10/27/2016 Abn findings-lung field [793.1] 05/03/2009 04/14/2013 Babesiosis [B60.00] 05/07/2009 04/14/2013 Nonspecific abnormal results of liver function *05/07/2009 04/14/2013 Abnormal cardiovascular stress test [R94.39] 08/12/2009 10/27/2016 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] 09/20/2009 02/25/2012 Seborrheic Keratosis [L82.1] 09/20/2009 02/25/2012 Actinic Damage//Sun-Damaged Skin [L57.8] 09/20/2009 02/25/2012 Solar Lentigines [L81.4] 09/20/2009 02/25/2012 Xerosis cutis [L85.3] 09/20/2009 02/25/2012 Impaired fasting glucose [R73.01] 01/01/2010 Epidermal cyst [L72.0] 09/28/2010 02/25/2012 Leg cramps [R25.2] 06/29/2011 02/25/2012 Essential hypertension, benign [I10] 02/25/2012 Folliculitis [L73.9] 07/14/2012 07/0 (more content not included)... Normal [facility] Absolute lymphocyte countOrd ered By: Caitlin Thomas on 11-22-2023 Lymphocytes Auto (Unsp spec) [#/Vol] 0.96 10*3/uL 0.83-4.51 [facility] Automated lymphocyte count a s percentage of total leukocytesOrdered By: Caitlin Thomas on 11-22-2023 Lymphocytes/100 WBC Auto (Unsp spec) 11.8 % 19-41 [facility] Basophil percentageOrdered B y: Caitlin Thomas on 11-22-2023 Basophils/100 WBC (Bld) 0.7 % 0-1 [facility] Chloride [Moles/Vol] 106 mmol/L 98-107 [facility] Eosinophils/100 WBC (Bld) 1.0 % 0-5 [facility] Glucose [Mass/Vol] 297 mg/dL 74-[address] [facility] Comment on above: Glucose result great er than or equal to 200 mg/dLsuggests DIABETES MELLITUS per A.D.A. criteria. Hemoglobin (Bld) [Mass/Vol] 14.3 g/dL 13.0-16.5 [facility] Monocytes/100 WBC (Bld) 6.1 % 0-10 [facility] Neutrophils (Bld) [#/Vol] 6.5 10*3/uL 2.0-7.7 [facility] Neutrophils/100 WBC (Bld) 79.7 % 47-70 [facility] Potassium [Moles/Vol] 3.8 mmol/L 3.5-5.1 [facility] Sodium [Moles/Vol] 137 mmol/L 136-[address] [facility] WBC (Bld) [#/Vol] 8.2 10*3/uL 4.4-11.[address] [facility] Determination of erythrocyte mean corpuscular volume (MCV)Ordered By: Caitlin Thomas on 11-22-2023 MCV (RBC) [Entitic vol] 91.1 fL 80-94 [facility] Erythrocyte distribution wid th ratioOrdered By: Caitlin Thomas on 11-22-2023 Erythrocyte distribution width (RBC) [Ratio] 13.6 % 11.6-14.6 [facility] Erythrocyte distribution wid th standard deviationOrdered By: Caitlin Thomas on 11-22-2023 Erythrocyte distribution width (RBC) [Entitic vol] 45.9 fL 35.1-43.9 [facility] Hematocrit Auto (Bld) [Volum e fraction]Ordered By: Caitlin Thomas on 11-22-2023 Hematocrit (Bld) [Volume fraction] 44.0 % 40-54 [facility] Immature granulocytes/100 WB C Auto (Bld)Ordered By: Caitlin Thomas on 11-22-2023 Immature granulocytes/100 WBC (Bld) 0.700 % 0.0-0.9 [facility] Comment on above: IG% - Immature Granu locytes (promyelocytes, myelocytes and metamyelocytes) > 1% indicates that a LEFT SHIFT is Present. Laboratory - Chemistry and C hemistry - challengeOrdered By: Caitlin Thomas on 11-22-2023 CO2 [Moles/Vol] 23.0 mmol/L 21.0-32.0 [facility] Natriuretic peptide B (Bld) [Mass/Vol] 16.7 pg/mL 0-100 [facility] Urea nitrogen/Creatinine [Mass ratio] 15.9 mg/mg 10-20 [facility] Laboratory - Hematology and Cell countsOrdered By: Caitlin Thomas on 11-22-2023 MCH (RBC) [Entitic mass] 29.6 pg 27.0-32.0 [facility] MCHC (RBC) [Mass/Vol] 32.5 g/dL 32-36 [facility] Nucleated RBC/100 WBC (Bld) [Ratio] 0 % 0-5 [facility] Platelet mean volume (Bld) [Entitic vol] 11.0 fL 6.2-12.0 [facility] Platelets (Bld) [#/Vol] 268 10*3/uL 150-450 [facility] No Panel InformationOrdered By: Caitlin Thomas on 11-22-2023 Estimated GFR (MDRD) Amer 84 mL/min >60 [facility] Comment on above: GFR Calc Estimated GFR (MDRD) Non-Af Amer 69 mL/min >60 [facility] Comment on above: Non- GFR Calc RBC Auto (Bld) [#/Vol]Ordere d By: Caitlin Thomas on 11-22-2023 RBC (Bld) [#/Vol] 4.83 10*6/uL 4.6-6.2 [facility] Serum or plasma calcium hunter urement (mass/volume)Ordered By: Caitlin Thomas on 11-22-2023 Calcium [Mass/Vol] 8.9 mg/dL 8.5-10.[address] [facility] Serum or plasma creatinine m easurement (mass/volume)Ordered By: Caitlin Thomas on 11-22-2023 Creatinine [Mass/Vol] 1.07 mg/dL 0.70-1.30 [facility] Comment on above: The validity of the calculated GFR & GFRAA in patients over 70 years has not been determined. Clinical correlation is essential. Serum or plasma urea nitroge n measurement (mass/volume)Ordered By: Caitlin Thomas on 11-22-2023 Urea nitrogen [Mass/Vol] 17 mg/dL 7-18 [facility] Thin prep Papanicolaou smear with manual screeningOrdered By: Caitlin Thomas on 11-22-2023 Thin prep Papanicolaou smear with manual screening 8 5-15 [facility] CNOVon 11-19-2023 CNOV Office Visit (FAMPWS ) ZACHARY MCDERMOTT ([id number]) 1935 M Date Time Provider Department 11/19/23 1:40 PM EMILIA JACOBPWS During your visit today, we recorded the following information about you: Pulse Respiration Blood pressure 80/minute 18/minute 118/70 Emilia Jacob MD 11/19/2023 2:03 PM Signed Chief Complaint Patient presents with: Hospital Follow Up HPI Zachary Mcdermott is a 88 year old male who presents here today for a hospital follow up. Pt here today with for a [facility] ED follow up. Here today with his daughter, Maeve. Pt seen at [facility] ED on 11/16/23 after he fell on his rollator earlier that day. He started experiencing left sided rib pain. Denies hitting his head or having LOC. X-rays were completed showing left 9th rib fx. Pt was d/c home with [place] 5-325 mg #12. Pt reports that he's still having a lot of pain, described as sharp. Notes that if he turns the wrong way this makes the sharp pain occur. Overall pain described as a deep ache. Does have some pain with taking deep breathing, but the [place] seems to help reduce this. Sleeping in his recliner. They are concerned due to having only 1 day left of pain medication and they don't think his pain is going to improve significantly in 1 day. Currently using [place] 5-325 mg 1 tab po every 6 hours, which does seem to keep him comfortable. States he's not had a BM since being on pain medication. When initially going into the ED he was having a lot of pain with every breath. DM - Daughter states that her Mother wanted to let office know that Pharmacies are unable to get Trulicity medication and want to discuss other options. Chief Complaint: Fall Narrative: 88-year-old male with left rib pain. Patient states he fell on his rollator earlier. Initially thought he hurt his left elbow and his left knee but he states he is not hurting anymore. He states he noted that his left ribs startedhurting and now hurt worse in his elbow and his knee. Patient is ambulatory with his rollator. Did not hit his head or lose consciousness. He took nothingfor pain prior to arrival. Medical decision making narrative: Patient presenting with left rib pain. States initially hurt his left elbow andleft knee but these do not hurt him anymore. Is able to range them without any difficulty. He does not want these evaluated. Left ribs are tender to palpation. No bruising or crepitance. Equal symmetric breath sounds or chest wall rise. Patient was given a Lidoderm patch and Tylenol. Left rib series wasobtained and shows ninth rib fracture on my interpretation. There is no pneumothorax or pneumonia. Radiology interprets and agrees. Patient will be given [place] for pain. Return precautions are discussed. Discharged in dose in his care hydrocodone-acetaminoph en 5-325 mg tablet 1 tab PO Q6H PRN PRN (Reason: Pain) 3 Days Qty: 12 0RF RAD/Ribs Uni Min 3V w/PA Chest IMPRESSION: RIBS: Left ninth rib fracture. No pneumothorax. CHEST: Left ninth rib fracture. No pneumothorax. Electronically Signed: Fabiano Mar MD at 20:29 EST Past medical history, appointments, medications, allergies reviewed. [...] Paternal Grandfather Patient Allergies ALLERGIES Allergen Reactions Penicillins Current Medications Current Outpatient Medications on File Prior to Visit Medication Sig apixaban (ELIQUIS) 2.5 mg tab(s) Take 1 tablet by mouth two times a day. FLUoxetine (PROZAC) 20 mg capsule Take 1 capsule by mouth once daily. Take along with 40 mg capsule dutasteride (AVODART) 0.5 mg capsule Take 1 capsule by mouth once daily. dulaglutide (TRULICITY) 1.5 mg/0.5 mL pen injector Inject 1.5 mg subcutaneously one time a week. In (more content not included)... Normal [facility] Basophil percentageOrdered B y: Andres Shipley on 11-01-2023 Creatinine [Mass/Vol] 1.3 mg/dL 0.70-1.30 [facility] Laboratory - Chemistry and C hemistry - challengeOrdered By: Andres Shipley on 11-01-2023 GFR/1.73 sq M.predicted among non-blacks MDRD (S/P/Bld) [Vol rate/Area] 56.0000 mL/min/{1.73_m2} >60 [facility] Dante 08-20-2023 SWATI Telephone (UCWSTR) ZACHARY MCDERMOTT ([id number]) 1935 M Date Time Provider Department 08/20/23 KATHERYN LORA [facility] During your visit today, we recorded the following information about you: Ktaheryn Lora APRN.CNP 08/20/2023 7:15 AM Signed Please notify of negative rsv, flu, and covid test. Continue comfort measures for symptoms as you would for a cold. Any worsening symptoms follow up with PCP or ER. Katheryn Lora APRN.Olga Pena LPN 08/20/2023 8:30 AM Signed Patient notified.Olga Gimenez LPN Allergies As of Date: 08/20/2023 Noted Allergy Reaction LacHydrin [Other] 10/30/2005 2 - Rash PENICILLINS 09/15/2005 Date Reviewed: 08/19/2023 Reviewed by: Katheryn Lora APRN.FIRE PATROLLER - Fully Assessed Reason for Visit: Results [95] Prescriptions as of 08/20/2023 - dulaglutide (TRULICITY) 1.5 mg/0.5 mL pen injector Inject 1.5 mg subcutaneously one time a week. Inject once per week. Discard Pen After - FLUoxetine (PROZAC) 20 mg capsule Take 1 capsule by mouth once daily. Take along with 40 mg capsule - FLUoxetine (PROZAC) 40 mg capsule take 1 capsule by mouth once daily - apixaban (ELIQUIS) 2.5 mg tab(s) Take 2 tablets by mouth twice daily. - ondansetron orally disintegrating (ZOFRAN ODT) 4 mg disintegrating tablet Take 1 tablet by mouth every 6 hours as needed for nausea/vomiting. - pantoprazole DR (PROTONIX) 40 mg tablet Take 1 tablet by mouth daily before breakfast. Take on empty stomach, 1/2 hr before meal. - glimepiride (AMARYL) 2 mg tablet Take 1 tablet by mouth daily with breakfast. - alfuzosin SR (UROXATRAL) 10 mg 24 hr tablet Take 1 tablet by mouth once daily. - lisinopril (ZESTRIL, PRINIVIL) 40 mg tablet Take 1 tablet by mouth once daily. - atorvastatin (LIPITOR) 80 mg tablet Take 1 tablet by mouth once daily. - amLODIPine (NORVASC) 5 mg tablet take 1 tablet by mouth once daily - doxycycline (VIBRA-TABS) 100 mg tablet Take 1 tablet by mouth twice daily. - metFORMIN ER (GLUCOPHAGE XR) 500 mg 24 hr tablet Take 2 tablets by mouth with breakfast - betamethasone dipropionate, augmented (DIPROLENE) 0.05 % cream Dr. Bridger Lomax. Apply as needed for eczema. - multivitamin tablet Take 1 tablet by mouth once daily. - diphenhydrAMINE (BENADRYL) 25 mg capsule Take 1 capsule by mouth every 6 hours as needed. - dutasteride (AVODART) 0.5 mg capsule Take 1 capsule by mouth once daily. Meds Comments as of 06/02/2022: Tylenol as needed, Magnesium every other day, Potassium q other day. Antihistamine at bedtime. 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] 09/20/2009 02/25/2012 Seborrheic Keratosis [L82.1] 09/20/2009 02/25/2012 Actinic Damage//Sun-Damaged Skin [L57.8] 09/20/2009 02/25/2012 Solar Lentigines [L81.4] 09/20/2009 02/25/2012 Xerosis cutis [L85.3] 09/20/2009 02/25/2012 Impaired fasting glucose [R73.01] 01/01/2010 Epidermal cyst [L72.0] 09/28/2010 02/25/2012 Leg cramps [R25.2] 06/29/2011 02/25/2012 Essential hypertension, benign [I10] 02/25/2012 Folliculitis [L73.9] 07/14/2012 04/14/2013 Pyoderma, unspecified [L08.0] 07/14/2012 04/14/2013 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] 07/14/2012 04/14/2013 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] 07/14/2012 04/14/2013 Actinic Damage//Sun-Damaged Skin [L57.8] 07/14/2012 10/27/2016 Solar Lentigines [L81.4] 07/14/2012 04/14/2013 Irritated//Inflamed Seborrheic Keratosis [L82.0]09/13/2012 03/12/2015 Postinflammatory skin changes [R23.8] 09/13/2012 04/14/2013 Other seborrheic dermatitis [L21.8] 09/13/2012 03/12/2015 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] 08/27/2013 10/27/2016 Seborrheic Keratoses [L82.1] 08/27/2013 03/12/2015 Solar lentigo [L81.4] 08/27/2013 03/12/2015 Xerosis cutis [L85.3] 08/27/2013 03/12/2015 Actinic skin damage [L57.8] 08/27/2013 03/12/2015 Scars [L90.5] 08/27/2013 03/12/2015 Other acne [L70.8] 08/27/2013 03/12/2015 Epidermal cyst [L72.0] 08/27/2013 03/12/2015 Type 2 diabetes mellitus without complication, *11/21/2019 History of CVA (cerebrovascular accident) [Z86.*11/11/2020 Current moderate episode of major depressive di*12/02/2020 Encounter Status:Closed by OLGA GIMENEZ LPN on 08/20/23 [facility] SEDRICKOVelisa 08-19-2023 CNOV Office Visit (UCWSTR ) MCDERMOTTZACHARY J ([id number]) 1935 M Date Time Provider Department 08/19/23 11:15 AM KATHERYN LORA [facility] During your visit today, we recorded the following information about you: Temperature Pulse Respiration Blood pressure 98.5 degrees 106/minute 18/minute 121/79 Weight 82.6 kg Katheryn Lora APRN.FIRE PATROLLER 08/19/2023 11:45 AM Signed Subjective The history is provided by the patient. No speech language specialist was used. DAVID Zachary Mcdermott is a 87 year old male [...] have confirmed and edited as necessary, the [facility] Review of Systems Constitutional: Positive for [...] in 12-24 hours with results, available on [employer] - COVID AND INFLUENZA A/B AND RSV NAAT, ROUTINE Diagnosis and treatment plan were discussed and questions were answered to the patient's satisfaction. Pt acknowledged understanding of concepts and follow up plan. Specific signs and symptoms that would indicate the need for higher level of care were discussed in detail warranting prompt ER evaluation. Katheryn Lora APRN.Katheryn Wolfe APRN.CNP 08/19/2023 11:42 AM Signed Covid, rsv, and influenza test ordered You will be notified in 12-24 hours, results available on [employer] Home isolation until results are back Rest, increase water intake Tylenol as needed for fever or pain. Salt water gargles, chloraseptic spray or lozenges as needed for sore throat. Warm beverages, honey. Nasal saline spray as needed Cool mist humidifier at night Tylenol (generic acetaminophen) 500 mg-2 tabs every 8 hrs. as needed for fever and aches -Mucinex (generic is fi (more content not included)... Normal [facility] ROUTINE FLU A/B + RSVon 11-0 FLUAV RNA VEL+probe Ql (Unsp spec) Not detected Normal Not Detected [facility] Comment on above: Order Comment: Speci men Type: SWAB OF INTERNAL NOSEOrdering Facility: [facility] Address: [address] [place] [address] Performed By: #### R TFRSV, 57208-4 ####[facility] [id number] [place] [address] [place] FLUBV RNA VEL+probe Ql (Unsp spec) Not detected Normal Not Detected [facility] Comment on above: Order Comment: Speci men Type: SWAB OF INTERNAL NOSEOrdering Facility: [facility] Address: [address] [place] [address] Performed By: #### R TFRSV, 62314-4 ####[facility] [id number] [place] [address] [place] RSV A RNA VEL+probe Ql (Unsp spec) Not detected Normal Not Detected [facility] Comment on above: Order Comment: Speci men Type: SWAB OF INTERNAL NOSEOrdering Facility: [facility] Address: [address] [place] [address] Performed By: #### R TFRSV, 07617-7 ####[facility] LABIA [id number] [place] [address] [place] SARS-CoV-2 RNA Resp Ql VEL+p sherice 08-19-2023 SARS-CoV-2 (COVID-19) RNA VEL+probe Ql (Resp) COVID 19 RESULT: Not detected The method used is RT-PCR or an equivalent NAAT method. Reference Range (the expected result in uninfected individuals): Not detected Normal [facility] Comment on above: Performed By: #### R TFRSV, 13814-8 ####[facility] [id number] [place] [address] [place] Basophil percentageOrdered B y: Andres Violetta on 07-28-2023 Creatinine [Mass/Vol] 1.4 mg/dL 0.70-1.30 [facility] - Chemistry and C hemistry - challengeOrdered By: Andres Shipley on 07-28-2023 GFR/1.73 sq M.predicted among non-blacks MDRD (S/P/Bld) [Vol rate/Area] 53.0000 mL/min/{1.73_m2} >60 [facility] CNOVon 06-29-2023 CNOV Office Visit (FAMPWS ) ZACHARY MCDERMOTT ([id number]) 1935 M Date Time Provider Department 06/29/23 3:00 PM EMILIA JACOB [facility] During your visit today, we recorded the following information about you: Pulse Respiration Blood pressure Weight 76/minute 16/minute 126/80 82.1 kg Emilia Jacob MD 06/29/2023 6:03 PM Signed Chief Complaint Follow up HPI Zachary Mcdermott is a 87 year old male who presents here today for 6 month follow up. Went on [employer] cruise in [place], going on [place] cruise next month. No bowel, Gi, or [...] BID. Pt followed with Dr. Rick at [facility] due to a mass on his [...] an appt with Radiation Oncology tomorrow at [facility] to discuss. Past medical history, appointments, [...] since quittin.7 Smokeless tobacco: Never Vaping Use (more content not included)... Normal [facility] ALBUMIN/CREAT RATIO RND URon 06-25-2023 Albumin DL <= 20 mg/L (U) [Mass/Vol] mg/dL Normal [facility] Comment on above: Order Comment: Speci men Type: URINE SPECIMENOrdering Facility: [facility] Address: [address] [facility] [place] [address] Performed By: #### U ACR ####[facility] [id number] [facility] [place] [address] [place] Albumin/Creatinine (U) [Mass ratio] <6 Normal <30 [facility] Comment on above: Order Comment: Speci men Type: URINE SPECIMENOrdering Facility: [facility] Address: [address] [place] [address] Result Comment: Adul t Male and Female Nephrotic Criteria: <30 mg/g is considered normal to mildly increased 30-300 mg/g is considered moderately increased >300 mg/g is considered severely increased KDIGO. (2013). KDIGO 2012 Clinical Practice Guideline for the Evaluation and Management of Chronic Kidney Disease. Official Journal of the International Society of Nephrology, 3(1), 1-150. Performed By: #### U ACR ####[facility] [id number] [place] [address] [place] Creatinine (U) [Mass/Vol] 188.5 mg/dL Normal 20.0-300.0 [facility] Comment on above: Order Comment: Speci men Type: URINE SPECIMENOrdering Facility: [facility] Address: [address] [place] [address] Performed By: #### U ACR ####[facility] [id number] [place] [address] [place] Comprehensive metabolic 2000 panelon 06-25-2023 Albumin [Mass/Vol] 4.0 g/dL Normal 3.9-4.9 [facility] Comment on above: Order Comment: Speci men Type: BLOOD SPECIMENOrdering Facility: [facility] Address: [address] [place] [address] Performed By: #### 2 4323-8, 54769-5 ####[facility] [id number] [place] [address] [place] ALP [Catalytic activity/Vol] 84 U/L Normal 38-113 [facility] Comment on above: Order Comment: Speci men Type: BLOOD SPECIMENOrdering Facility: [facility] Address: [address] [place] [address] Performed By: #### 2 4323-8, 85318-6 ####[facility] [id number] [place] [address] [place] ALT [Catalytic activity/Vol] 39 U/L Normal 10-54 [facility] Comment on above: Order Comment: Speci men Type: BLOOD SPECIMENOrdering Facility: [facility] Address: [address] [place] [address] Performed By: #### 2 4323-8, 51901-5 ####[facility] [id number] [place] [address] [place] Anion gap [Moles/Vol] 16 mmol/L Normal 9-18 [facility] Comment on above: Order Comment: Speci men Type: BLOOD SPECIMENOrdering Facility: [facility] Address: [address] [place] [address] Performed By: #### 2 4323-8, 82647-0 ####[facility] LABIA [id number] [place] [address] [place] AST [Catalytic activity/Vol] 26 U/L Normal 14-40 [facility] Comment on above: Order Comment: Speci men Type: BLOOD SPECIMENOrdering Facility: [facility] Address: [address] [place] [address] Performed By: #### 2 4323-8, 50480-8 ####[facility] [id number] [place] [address] [place] Bilirubin [Mass/Vol] 0.6 mg/dL Normal 0.2-1.3 [facility] Comment on above: Order Comment: Speci men Type: BLOOD SPECIMENOrdering Facility: [facility] Address: [address] [place], [place] [address] Performed By: #### 2 4323-8, 39274-7 ####[facility] [id number] [place] [address] [place] Calcium [Mass/Vol] 9.2 mg/dL Normal 8.5-10.2 [facility] Comment on above: Order Comment: Speci men Type: BLOOD SPECIMENOrdering Facility: [facility] Address: [address] Performed By: #### 2 4323-8, 74421-5 ####[facility] [id number] [place] [address] [place] Chloride [Moles/Vol] 104 mmol/L Normal 97-105 [facility] Comment on above: Order Comment: Speci men Type: BLOOD SPECIMENOrdering Facility: [facility] Address: [address] [place] [address] Performed By: #### 2 4323-8, 22593-5 ####[facility] [id number] [place] [address] [place] CO2 [Moles/Vol] 21 mmol/L Low 22-30 [facility] Comment on above: Order Comment: Speci men Type: BLOOD SPECIMENOrdering Facility: [facility] Address: [address] [place] [address] Performed By: #### 2 4323-8, 19683-6 ####[facility] [id number] [address] [place] Creatinine [Mass/Vol] 0.90 mg/dL Normal 0.73-1.22 [facility] Comment on above: Order Comment: Speci men Type: BLOOD SPECIMENOrdering Facility: [facility] Address: [address] Performed By: #### 2 4323-8, 10561-6 ####[facility] [id number] [address] [place] Creatinine and Glomerular filtration rate.predicted panel (S/P/Bld) 83 mL/min/1.73m??? Normal >=60 [facility] Comment on above: Order Comment: Speci men Type: BLOOD SPECIMENOrdering Facility: [facility] Address: [address] [place] [address] Result Comment: Angie mated Glomerular Filtration Rate (eGFR) is calculated using the 2020 CKD-EPI creatinine equation. This equation utilizes serum creatinine, sex, and age as parameters. The creatinine assay has traceable calibration to isotope dilution-mass spectrometry. Refer to KDIGO guidelines for clinical interpretation. In patients with unstable renal function, e.g. those with acute kidney injury, the eGFR may not accurately reflect actual GFR. Performed By: #### 2 4323-8, 16116-8 ####[facility] LABIA [id number] [place] [address] [place] Glucose [Mass/Vol] 126 mg/dL High 74-99 [facility] Comment on above: Order Comment: Julito ann Type: BLOOD SPECIMENOrdering Facility: [facility] Address: [address] [place] [address] Result Comment: The [place] Diabetes Association (ADA) provides guidance for cutoff values for fasting glucose and random glucose. The ADA defines fasting as no caloric intake for at least 8 hours. Fasting plasma glucose results between 100 to 125 mg/dL indicate increased risk for diabetes (prediabetes). Fasting plasma glucose results greater than or equal to 126 mg/dL meet the criteria for diagnosis of diabetes. In the absence of unequivocal hyperglycemia, results should be confirmed by repeat testing. In a patient with classic symptoms of hyperglycemia or hyperglycemic crisis, random plasma glucose results greater than or equal to 200 mg/dL meet the criteria for diagnosis of diabetes. Reference: Standards of Medical Care in Diabetes 2016, [place] Diabetes Association. Diabetes Care. 2016.39(Suppl 1). Performed By: #### 2 4323-8, 06640-0 ####[facility] [id number] [place] [address] [place] Potassium [Moles/Vol] 4.9 mmol/L Normal 3.7-5.1 [facility] Comment on above: Order Comment: Julito ann Type: BLOOD SPECIMENOrdering Facility: [facility] Address: [address] [id number] Performed By: #### 2 4323-8, 86450-2 ####[facility]CL[facility] [id number] [place] [address] [place] Protein [Mass/Vol] 6.8 g/dL Normal 6.3-8.0 [facility] Comment on above: Order Comment: Speci men Type: BLOOD SPECIMENOrdering Facility: [facility] Address: [address] Performed By: #### 2 4323-8, 49790-5 ####[facility] LABIA [id number] [place] [address] [place] Sodium [Moles/Vol] 141 mmol/L Normal 136-144 [facility] Comment on above: Order Comment: Speci men Type: BLOOD SPECIMENOrdering Facility: [facility] Address: [address] [place], [place] [address] Performed By: #### 2 4323-8, 86631-0 ####[facility] LABIA [id number] [place] [address] [place] Urea nitrogen [Mass/Vol] 13 mg/dL Normal 9-24 [facility] Comment on above: Order Comment: Speci men Type: BLOOD SPECIMENOrdering Facility: [facility] Address: [address] [place], [place] [address] Performed By: #### 2 4323-8, 68161-2 ####[facility] LABIA [id number] [place] [address] [place] HbA1c (Bld)on 06-25-2023 Average glucose Estimated from glycated hemoglobin (Bld) [Mass/Vol] 160 mg/dL Normal [facility] Comment on above: Order Comment: Speci men Type: BLOOD SPECIMENOrdering Facility: [facility] Address: [address] [place] [address] Result Comment: eAG: (Estimated average glucose) is a calculated value from HgbA1c and is chain sales representative of the average blood glucose level in the last 2-3 month period. Performed By: #### 5 5454-3 ####[facility] [id number] [address] STATES OF [facility] HbA1c (Bld) [Mass fraction] 7.2 % High 4.3-5.6 [facility] Comment on above: Order Comment: Julito ann Type: BLOOD SPECIMENOrdering Facility: [facility] Address: [address] [place] [address] Result Comment: [place] Diabetes Association guidelines indicate that patients with HgbA1c in the range 5.7-6.4% are at increased risk for development of diabetes, and intervention by lifestyle modification may be beneficial. HgbA1c greater or equal to 6.5% is considered diagnostic of diabetes. Performed By: #### 5 5454-3 ####[facility] LABIA [id number] [address] OF [facility] Lipid 1996 panelon 3 Cholesterol [Mass/Vol] 94 mg/dL Normal <200 [facility] Comment on above: Order Comment: Julito ann Type: BLOOD SPECIMENOrdering Facility: [facility] Address: [address] [place] [address] Result Comment: <200 mg/dL, Desirable 200-239 mg/dL, Borderline high >239 mg/dL, High Performed By: #### 2 4323-8, 60053-9 ####[facility]CL[facility] [id number] [address] Cholesterol in HDL [Mass/Vol] 36 mg/dL Low >39 [facility] Comment on above: Order Comment: Julito ann Type: BLOOD SPECIMENOrdering Facility: [facility] Address: [address] [place] [address] Result Comment: 40-5 9 mg/dL, Acceptable >59 mg/dL, High: Negative risk factor for coronary heart disease <40 mg/dL, Low: Positive risk factor for coronary heart disease Performed By: #### 2 4323-8, ####[facility] [id number] [address] STATES OF [facility] Cholesterol in LDL [Mass/Vol] 41 mg/dL Normal <100 [facility] Comment on above: Order Comment: Speci men Type: BLOOD SPECIMENOrdering Facility: [facility] Address: [address] [address] Result Comment: <100 mg/dL, Optimal 100-129 mg/dL, Near optimal/above optimal 130-159 mg/dL, Borderline high 160-189 mg/dL, High >189 mg/dL, Very high Secondary prevention optimal LDL Cholesterol levels are recommended to be < 70 mg/dL Performed By: #### 2 432-8, ####[facility]IA [id number] [address] [place] Cholesterol in LDL/Cholesterol in HDL [Mass ratio] 1.14 {ratio} Normal <2.54 [facility] Comment on above: Order Comment: Speci men Type: BLOOD SPECIMENOrdering Facility: [facility] Address: [address] [place] [address] Result Comment: Nusrat zimmer: 1. National Cholesterol Education Program ATP III Guideline At-A-Glance Quick Desk Reference: National Heart, Lung, and Blood Marshall. National Institutes of Health. 2001: NIH Publication No. 01-3305. 2. An International Atherosclerosis Society position paper: global recommendations for the management of dyslipidemia: executive summary, Atherosclerosis. 2014: 232(2):410-413. Performed By: #### 2 4323-8, ####[facility] LABIA [id number] [address] [place] Cholesterol in VLDL [Mass/Vol] 17 mg/dL Normal <30 [facility] Comment on above: Order Comment: Speci men Type: BLOOD SPECIMENOrdering Facility: [facility] Address: [address] [place] [address] Performed By: #### 2 4323-8, ####[facility]CL[facility] [id number] [place] [address] [place] Cholesterol non HDL [Mass/Vol] 58 mg/dL Normal <130 [facility] Comment on above: Order Comment: Speci men Type: BLOOD SPECIMENOrdering Facility: [facility] Address: [address] [place] [address] Result Comment: <130 mg/dL, Optimal 130-159 mg/dL, Near optimal/above optimal 160-189 mg/dL, Borderline high 190-219 mg/dL, High >219 mg/dL, Very high Secondary prevention optimal non HDL Cholesterol levels are recommended to be <100 mg/dL Performed By: #### 2 4323-8, ####[facility] [id number] [place] [address] [place] Cholesterol.total/Cho lesterol in HDL [Mass ratio] 2.61 {ratio} Normal <5.10 [facility] Comment on above: Order Comment: Speci men Type: BLOOD SPECIMENOrdering Facility: [facility] Address: [address] Performed By: #### 2 4323-8, ####[facility] [id number] [place] [address] [place] FASTING TIME 14 hrs Normal [facility] Comment on above: Order Comment: Speci men Type: BLOOD SPECIMENOrdering Facility: [facility] Address: [address] [place] [address] Performed By: #### 2 4323-8, ####[facility] [id number] [place] [address] [place] Triglyceride [Mass/Vol] 83 mg/dL Normal <150 [facility] Comment on above: Order Comment: Speci men Type: BLOOD SPECIMENOrdering Facility: [facility] Address: [address] [place] [address] Result Comment: <150 mg/dL, Normal 150-199 mg/dL, Borderline high 200-499 mg/dL, High >499 mg/dL, Very high Performed By: #### 2 4323-8, 64080-0 ####[facility] [id number] [place] [address] [place] [facility] Absolute lymphocyte countOrd ered By: Dr. Rick on 01-07-2023 Lymphocytes Auto (Unsp spec) [#/Vol] 1.60 10*3/uL 0.83-4.51 [facility] Basophil percentageOrdered B y: Dr. Rick on 01-07-2023 Basophils/100 WBC (Bld) 1.1 % 0-1 [facility] Eosinophils/100 WBC (Bld) 1.3 % 0-5 [facility] Neutrophils (Bld) [#/Vol] 5.7 10*3/uL 2.0-7.7 [facility] Neutrophils/100 WBC (Bld) 68.3 % 47-70 [facility] WBC (Bld) [#/Vol] 8.4 10*3/uL 4.4-11.[address] [facility] Blood erythrocytes count (nu mber/volume)Ordered By: Dr. Rick on 01-07-2023 RBC (Bld) [#/Vol] 4.52 10*6/uL 4.6-6.2 [facility] Blood hemoglobin measurement (mass/volume)Ordered By: Dr. Rick on 01-07-2023 Hemoglobin (Bld) [Mass/Vol] 14.2 g/dL 13.0-16.5 [facility] Blood lymphocytes/100 leukoc ytesOrdered By: Dr. Rick on 01-07-2023 Lymphocytes/100 WBC (Bld) 19.0 % 19-41 [facility] Blood monocytes/100 leukocyt esOrdered By: Dr. Rick on 01-07-2023 Monocytes/100 WBC (Bld) 9.6 % 0-10 [facility] Blood platelet mean volumeOr dered By: Dr. Rick on 01-07-2023 Platelet mean volume (Bld) [Entitic vol] 10.2 fL 6.2-12.0 [facility] Determination of erythrocyte mean corpuscular volume (MCV)Ordered By: Dr. Rick on 01-07-2023 MCV (RBC) [Entitic vol] 93.6 fL 80-94 [facility] Hematocrit Auto (Bld) [Volum e fraction]Ordered By: Dr. Rick on 01-07-2023 Hematocrit (Bld) [Volume fraction] 42.3 % 40-54 [facility] INR in Blood by Coagulation assayOrdered By: Dr. Rick on 01-07-2023 INR Coag (Bld) [Relative time] 1.0 {INR} [facility] Laboratory - CoagulationOrde red By: Dr. Rick on 01-07-2023 aPTT Coag (Bld) [Time] 28.4 s 24.1-36.2 [facility] PT Coag (PPP) [Time] 13.1 s 11.7-14.9 [facility] Laboratory - Hematology and Cell countsOrdered By: Dr. Rick on 01-07-2023 Erythrocyte distribution width (RBC) [Entitic vol] 45.0 fL 35.1-43.9 [facility] Erythrocyte distribution width (RBC) [Ratio] 13.1 % 11.6-14.6 [facility] Immature granulocytes/100 WBC (Bld) 0.700 % 0.0-0.9 [facility] Comment on above: IG% - Immature Granu locytes (promyelocytes, myelocytes and metamyelocytes) > 1% indicates that a LEFT SHIFT is Present. MCH (RBC) [Entitic mass] 31.4 pg 27.0-32.0 [facility] Nucleated RBC/100 WBC (Bld) [Ratio] 0 % 0-5 [facility] MCHC Auto (RBC) [Mass/Vol]Or dered By: Dr. Rick on 01-07-2023 MCHC (RBC) [Mass/Vol] 33.6 g/dL 32-36 [facility] Platelets bldOrdered By: Dr. Rick on 01-07-2023 Platelets (Bld) [#/Vol] 244 10*3/uL 150-450 [facility] Absolute lymphocyte countOrd ered By: Dr. Rick on 12-30-2022 Lymphocytes Auto (Unsp spec) [#/Vol] 1.21 10*3/uL 0.83-4.51 [facility] Basophil percentageOrdered B y: Dr. Rick on 12-30-2022 Basophils/100 WBC (Bld) 1.1 % 0-1 [facility] Bilirubin [Mass/Vol] 0.60 mg/dL 0.20-1.00 [facility] Comment on above: For patients on eltr ombopag therapy, use of Dimension [place] TBIL is not recommended. Chloride [Moles/Vol] 106 mmol/L 98-107 [facility] Eosinophils/100 WBC (Bld) 0.6 % 0-5 [facility] Glucose [Mass/Vol] 170 mg/dL 74-[address] [facility] Comment on above: Fasting Glucose resu lt greater than or equal to 126 mg/dL suggests DIABETES MELLITUS per A.D.A. criteria. Neutrophils (Bld) [#/Vol] 6.9 10*3/uL 2.0-7.7 [facility] Neutrophils/100 WBC (Bld) 76.9 % 47-70 [facility] Potassium [Moles/Vol] 4.1 mmol/L 3.5-5.1 [facility] Protein [Mass/Vol] 7.4 g/dL 6.4-8.[address] [facility] Sodium [Moles/Vol] 138 mmol/L 136-[address] [facility] WBC (Bld) [#/Vol] 9.0 10*3/uL 4.4-11.[address] [facility] Blood erythrocytes count (nu mber/volume)Ordered By: Dr. Rick on 12-30-2022 RBC (Bld) [#/Vol] 4.75 10*6/uL 4.6-6.2 [facility] Blood hemoglobin measurement (mass/volume)Ordered By: Dr. Rick on 12-30-2022 Hemoglobin (Bld) [Mass/Vol] 14.8 g/dL 13.0-16.5 [facility] Blood lymphocytes/100 leukoc ytesOrdered By: Dr. Rick on 12-30-2022 Lymphocytes/100 WBC (Bld) 13.5 % 19-41 [facility] Blood monocytes/100 leukocyt esOrdered By: Dr. Rick on 12-30-2022 Monocytes/100 WBC (Bld) 7.2 % 0-10 [facility] Blood platelet mean volumeOr dered By: Dr. Rick on 12-30-2022 Platelet mean volume (Bld) [Entitic vol] 10.6 fL 6.2-12.0 [facility] Determination of erythrocyte mean corpuscular volume (MCV)Ordered By: Dr. Rick on 12-30-2022 MCV (RBC) [Entitic vol] 93.7 fL 80-94 [facility] Hematocrit Auto (Bld) [Volum e fraction]Ordered By: Dr. Rick on 12-30-2022 Hematocrit (Bld) [Volume fraction] 44.5 % 40-54 [facility] Laboratory - Chemistry and C hemistry - challengeOrdered By: Dr. Rick on 12-30-2022 ALP [Catalytic activity/Vol] 82 U/L 45-117 [facility] ALT [Catalytic activity/Vol] 49 U/L 16-61 [facility] CO2 [Moles/Vol] 25.0 mmol/L 21.0-32.0 [facility] Globulin (S) [Mass/Vol] 3.7 g/dL 2.2-4.2 [facility] [facility] [place] Urea nitrogen/Creatinine [Mass ratio] 16.1 mg/mg 10-20 [facility] Laboratory - Hematology and Cell countsOrdered By: Dr. Rick on 12-30-2022 Erythrocyte distribution width (RBC) [Entitic vol] 45.3 fL 35.1-43.9 [facility] Erythrocyte distribution width (RBC) [Ratio] 13.1 % 11.6-14.6 [facility] Immature granulocytes/100 WBC (Bld) 0.700 % 0.0-0.9 [facility] Comment on above: IG% - Immature Granu locytes (promyelocytes, myelocytes and metamyelocytes) > 1% indicates that a LEFT SHIFT is Present. MCH (RBC) [Entitic mass] 31.2 pg 27.0-32.0 [facility] Nucleated RBC/100 WBC (Bld) [[facility]] 0 % 0-5 [facility] [Mass/Vol]Or dered By: Dr. Rick on 12-30-2022 MCHC (RBC) [Mass/Vol] 33.3 g/dL 32-36 [facility] No Panel InformationOrdered By: Dr. Rick on 12-30-2022 Estimated GFR (MDRD) Amer 107 mL/min >60 [facility] Comment on above: GFR Calc Estimated GFR (MDRD) Non-Af Amer 88 mL/min >60 [facility] Comment on above: Non- GFR Calc Platelets bldOrdered By: Dr. Rick on 12-30-2022 Platelets (Bld) [#/Vol] 257 10*3/uL 150-450 [facility] Serum or plasma albumin hunter urement (mass/volume)Ordered By: Dr. Rick on 12-30-2022 Albumin [Mass/Vol] 3.7 g/dL 3.2-5.[address] [facility] Serum or plasma albumin/glob ulin mass ratioOrdered By: Dr. Rick on 12-30-2022 Albumin/Globulin [Mass ratio] 1.0 {ratio} 0.9-2.4 [facility] Serum or plasma calcium hunter urement (mass/volume)Ordered By: Dr. Rick on 12-30-2022 Calcium [Mass/Vol] 9.3 mg/dL 8.5-10.[address] [facility] Serum or plasma creatinine m easurement (mass/volume)Ordered By: Dr. Rick on 12-30-2022 Creatinine [Mass/Vol] 0.87 mg/dL 0.70-1.30 [facility] Comment on above: The validity of the calculated GFR & GFRAA in patients over 70 years has not been determined. Clinical correlation is essential. Serum or plasma urea nitroge n measurement (mass/volume)Ordered By: Dr. Rick on 12-30-2022 Urea nitrogen [Mass/Vol] 14 mg/dL 7-18 [facility] Thin prep Papanicolaou smear with manual screeningOrdered By: Dr. Rick on 12-30-2022 Thin prep Papanicolaou smear with manual screening 23 U/L 15-37 [facility] Thin prep Papanicolaou smear with manual screening 7 5-15 [facility] Basophil percentageOrdered B y: Javier Mathews on 12-17-2022 Creatinine [Mass/Vol] 1.1 mg/dL 0.70-1.30 [facility] No Panel InformationOrdered By: Javier Mathews on 12-17-2022 Bedside Estimated GFR (eGFR) > 60.0000 mL/min >60 [facility] Glucose Glucometer (BldC) [M ass/Vol]on 03-25-2022 Glucose [Mass/Vol] 225 mg/dL 74-[address] [facility] Work Phone: Comment on above: MANAGEMENT OF PATIEN T CARE PER NURSING PROTOCOL Absolute lymphocyte counton 03-23-2022 Lymphocytes Auto (Unsp spec) [#/Vol] 1.43 10*3/uL 0.83-4.51 [facility] Work Phone: Basophil percentageon 2021 Basophils/100 WBC (Bld) 0.6 % 0-1 [facility] Work Phone: Bilirubin [Mass/Vol] 0.50 mg/dL 0.20-1.00 [facility] Work Phone: Comment on above: For patients on eltr ombopag therapy, use of Dimension [place] TBIL is not recommended. Chloride [Moles/Vol] 107 mmol/L 98-107 [facility] Work Phone: Eosinophils/100 WBC (Bld) 3.1 % 0-5 [facility] Work Phone: Glucose [Mass/Vol] 187 mg/dL 74-[address] [facility] Work Phone: Comment on above: Fasting Glucose resu lt greater than or equal to 126 mg/dL suggests DIABETES MELLITUS per A.D.A. criteria. Neutrophils (Bld) [#/Vol] 6.1 10*3/uL 2.0-7.7 [facility] Work Phone: Neutrophils/100 WBC (Bld) 70.0 % 47-70 [facility] Work Phone: Potassium [Moles/Vol] 4.1 mmol/L 3.5-5.1 [facility] Work Phone: Protein [Mass/Vol] 6.6 g/dL 6.4-8.2 [facility] Work Phone: Sodium [Moles/Vol] 137 mmol/L 136-145 [facility] Work Phone: WBC (Bld) [#/Vol] 8.6 10*3/uL 4.4-11.[address] [facility] Work Phone: Blood erythrocytes count (nu mber/volume)on 03-23-2022 RBC (Bld) [#/Vol] 4.16 10*6/uL 4.6-6.2 [facility] Work [facility]: Blood hemoglobin measurement (mass/volume)on 03-23-2022 Hemoglobin (Bld) [Mass/Vol] 12.5 g/dL 13.0-16.5 [facility] Work Phone: Blood lymphocytes/100 leukoc yteson 03-23-2022 Lymphocytes/100 WBC (Bld) 16.6 % 19-41 [facility] Work Phone: Blood monocytes/100 leukocyt eson 03-23-2022 Monocytes/100 WBC (Bld) 9.2 % 0-10 [facility] Work Phone: Blood platelet mean volumeon 03-23-2022 Platelet mean volume (Bld) [Entitic vol] 11.1 fL 6.2-12.0 [facility] Work Phone: Determination of erythrocyte mean corpuscular volume (MCV)on 03-23-2022 MCV (RBC) [Entitic vol] 89.7 fL 80-94 [facility] Work Phone: Hematocrit Auto (Bld) [Volum e fraction]on 03-23-2022 Hematocrit (Bld) [Volume fraction] 37.3 % 40-54 [facility] Work Phone: Laboratory - Chemistry and C hemistry - challengeon 03-23-2022 ALP [Catalytic activity/Vol] 57 U/L 45-117 [facility] Work Phone: [phone] ALT [Catalytic activity/Vol] 39 U/L 16-61 [facility] Work Phone: [phone] CO2 [Moles/Vol] 25.0 mmol/L 21.0-32.0 [facility] Work Phone: [phone] Globulin (S) [Mass/Vol] 3.7 g/dL 2.2-4.2 [facility] Work Phone: [phone] Urea nitrogen/Creatinine [Mass ratio] 18.1 mg/mg 10-20 [facility] Work Phone: [phone] Laboratory - Hematology and Cell countson 03-23-2022 Erythrocyte distribution width (RBC) [Entitic vol] 43.5 fL 35.1-43.9 [facility] Work Phone: [phone] Erythrocyte distribution width (RBC) [Ratio] 13.2 % 11.6-14.6 [facility] Work Phone: [phone] Immature granulocytes/100 WBC (Bld) 0.500 % 0.0-0.9 [facility] Work Phone: [phone] Comment on above: IG% - Immature Granu locytes (promyelocytes, myelocytes and metamyelocytes) > 1% indicates that a LEFT SHIFT is Present. MCH (RBC) [Entitic mass] 30.0 pg 27.0-32.0 [facility] Work Phone: [phone] Nucleated RBC/100 WBC (Bld) [Ratio] 0 % 0-5 [facility] Work Phone: [phone] MCHC Auto (RBC) [Mass/Vol]on 03-23-2022 MCHC (RBC) [Mass/Vol] 33.5 g/dL 32-36 [facility] Work Phone: [phone] Panel Informationon 03-23 Estimated Creatinine Clearance Calc 51.30 ml/min [facility] Work Phone: [phone] Estimated GFR (MDRD) Amer 122 mL/min >60 [facility] Work Phone: Comment on above: GFR Calc Estimated GFR (MDRD) Non-Af Amer 101 mL/min >60 [facility] Work Phone: Comment on above: Non- GFR Calc Platelets bldon 03-23-2022 Platelets (Bld) [#/Vol] 224 10*3/uL 150-450 [facility] Work Phone: [phone] Serum or plasma albumin hunter urement (mass/volume)on 03-23-2022 Albumin [Mass/Vol] 2.9 g/dL 3.2-5.[address] [facility] Work Phone: Serum or plasma albumin/glob ulin mass ratioon 03-23-2022 Albumin/Globulin [Mass ratio] 0.8 {ratio} 0.9-2.4 [facility] Work Phone: [phone] Serum or plasma calcium hunter urement (mass/volume)on 03-23-2022 Calcium [Mass/Vol] 8.7 mg/dL 8.5-10.[address] [facility] Work Phone: [phone] Serum or plasma creatinine m easurement (mass/volume)on 03-23-2022 Creatinine [Mass/Vol] 0.77 mg/dL 0.70-1.30 [facility] Work Phone: Comment on above: The validity of the calculated GFR & GFRAA in patients over 70 years has not been determined. Clinical correlation is essential. Serum or plasma urea nitroge n measurement (mass/volume)on 03-23-2022 Urea nitrogen [Mass/Vol] 14 mg/dL 7-18 [facility] Work Phone: [phone] Thin prep Papanicolaou smear with manual screeningon 03-23-2022 Thin prep Papanicolaou smear with manual screening 25 U/L 15-37 [facility] Work Phone: [phone] Thin prep Papanicolaou smear with manual screening 5 5-15 [facility] Work Phone: [phone] Laboratory - Chemistry and C hemistry - challengeon 03-22-2022 Lipase [Catalytic activity/Vol] 62 U/L 73-393 [facility] Work Phone: Blood manual differential co mment interpretation (narrative result)on 03-21-2022 Manual differential comment Nadeem (Bld) [Interp] SCANNED [facility] Work Phone: Review by pathologiston 03-11 Pathologist review Nadeem (Unsp spec) [Interp] Reviewed [facility] Work Phone: Comment on above: Previous reported re sult: Joi joanne Edited by: DOMINIK on 03/23/22:1300Neutrophilic leukocytosis.Clinical correlation necessary.Kayden Reilly M.D. 03/23/22 AMENDED REPORT 03/23/22 1300 PATH REV previously reported as: Joi rubio Absolute lymphocyte counton 03-20-2022 Lymphocytes Auto (Unsp spec) [#/Vol] 1.35 10*3/uL 0.83-4.51 [facility] Work Phone: Basophil percentageon 2021 Basophil percentage 0 SEEN /hpf 0-5 [facility] Work Phone: Basophils/100 WBC (Bld) 0.2 % 0-1 [facility] Work Phone: Bilirubin [Mass/Vol] 1.10 mg/dL 0.20-1.00 [facility] Work Phone: Comment on above: For patients on eltr ombopag therapy, use of Dimension [place] TBIL is not recommended. Chloride [Moles/Vol] 103 mmol/L 98-107 [facility] Work Phone: Cholesterol [Mass/Vol] 97 mg/dL <200 [facility] Work Phone: Comment on above: <200 mg/dL Desirable 200-240 mg/dL Borderline >240 mg/dL High Risk Eosinophils/100 WBC (Bld) 0.4 % 0-5 [facility] Work Phone: Glucose [Mass/Vol] 260 mg/dL 74-[address] [facility] Work Phone: Comment on above: Glucose result great er than or equal to 200 mg/dLsuggests DIABETES MELLITUS per A.D.A. criteria. Neutrophils (Bld) [#/Vol] 12.6 10*3/uL 2.0-7.7 [facility] Work Phone: Neutrophils/100 WBC (Bld) 78.2 % 47-70 [facility] Work Phone: [phone] Potassium [Moles/Vol] 4.0 mmol/L 3.5-5.1 [facility] Work Phone: Protein [Mass/Vol] 7.5 g/dL 6.4-8.[address] [facility] Work Phone: Sodium [Moles/Vol] 134 mmol/L 136-[address] [facility] Work Phone: [phone] Triglyceride [Mass/Vol] 62 mg/dL <199 [facility] Work Phone: [phone] Comment on above: The drugs N-Acetylcy steine and Metamizole may falsely depress this assay.Serum Triglycerides Reference Interval Normal <150 mg/dL Borderline high 150 - 199 mg/dL High 200 - 499 mg/dL Very High > or = 500 mg/dL WBC (Bld) [#/Vol] 16.1 10*3/uL 4.4-11.0 [facility] Work Phone: Bilirubin Test strip Ql (U)o n 03-20-2022 Bilirubin Ql (U) Negative Negative [facility] Work Phone: Blood erythrocytes count (nu mber/volume)on 03-20-2022 RBC (Bld) [#/Vol] 4.56 10*6/uL 4.6-6.2 [facility] Work Phone: Blood hemoglobin measurement (mass/volume)on 03-20-2022 Hemoglobin (Bld) [Mass/Vol] 13.6 g/dL 13.0-16.5 [facility] Work Phone: Blood lymphocytes/100 leukoc yteson 03-20-2022 Lymphocytes/100 WBC (Bld) 8.4 % 19-41 [facility] Work Phone: Blood manual differential co mment interpretation (narrative result)on 03-20-2022 Manual differential comment Nadeem (Bld) [Interp] SEE COMMENT [facility] Work Phone: [phone] Comment on above: MONOCYTOSIS NOTED Blood monocytes/100 leukocyt eson 03-20-2022 Monocytes/100 WBC (Bld) 12.3 % 0-10 [facility] Work Phone: Blood platelet adequacy dete ction by light microscopyon 03-20-2022 Platelets LM Ql (Bld) ADEQUATE ADEQ [facility] Work Phone: [phone] Blood platelet mean volumeon 03-20-2022 Platelet mean volume (Bld) [Entitic vol] 11.3 fL 6.2-12.0 [facility] Work Phone: Determination of erythrocyte mean corpuscular volume (MCV)on 03-20-2022 MCV (RBC) [Entitic vol] 88.4 fL 80-94 [facility] Work Phone: Direct bilirubinon Bilirubin.direct [Mass/Vol] 0.27 mg/dL 0.00-0.30 [facility] Work Phone: [phone] Hematocrit Auto (Bld) [Volum e fraction]on 03-20-2022 Hematocrit (Bld) [Volume fraction] 40.3 % 40-54 [facility] Work Phone: [phone] Ketones Test strip Ql (U)on 03-20-2022 Ketones Ql (U) Negative Negative [facility] Work Phone: [phone] Laboratory - Chemistry and C hemistry - challengeon 03-20-2022 ALP [Catalytic activity/Vol] 61 U/L 45-117 [facility] Work Phone: ALT [Catalytic activity/Vol] 31 U/L 16-61 [facility] Work Phone: [phone] CO2 [Moles/Vol] 24.0 mmol/L 21.0-32.0 [facility] Work Phone: [phone] Globulin (S) [Mass/Vol] 4.0 g/dL 2.2-4.2 [facility] Work Phone: Lipase [Catalytic activity/Vol] 1296 U/L 73-393 [facility] Work Phone: [phone] Urea nitrogen/Creatinine [Mass ratio] 13.1 mg/mg 10-20 [facility] Work Phone: Laboratory - Hematology and Cell countson 03-20-2022 Anisocytosis Ql (Bld) RARE [facility] Work Phone: [phone] Erythrocyte distribution width (RBC) [Entitic vol] 43.5 fL 35.1-43.9 [facility] Work Phone: [phone] Erythrocyte distribution width (RBC) [Ratio] 13.3 % 11.6-14.6 [facility] Work Phone: [phone] Immature granulocytes/100 WBC (Bld) 0.500 % 0.0-0.9 [facility] Work Phone: [phone] Comment on above: IG% - Immature Granu locytes (promyelocytes, myelocytes and metamyelocytes) > 1% indicates that a LEFT SHIFT is Present. MCH (RBC) [Entitic mass] 29.8 pg 27.0-32.0 [facility] Work Phone: [phone] Nucleated RBC/100 WBC (Bld) [Ratio] 0 % 0-5 [facility] Work Phone: [phone] MCHC Auto (RBC) [Mass/Vol]on 03-20-2022 MCHC (RBC) [Mass/Vol] 33.7 g/dL 32-36 [facility] Work Phone: [phone] Mucus LM Ql (Urine sed)on Mucus Ql (Urine sed) 0 SEEN /hpf [facility] Work Phone: [phone] Nitrite Test strip Ql (U)on 03-20-2022 Nitrite Ql (U) Negative Negative [facility] Work Phone: No Panel Informationon 03-20 Estimated Creatinine Clearance Calc 55.76 ml/min [facility] Work Phone: [phone] Estimated GFR (MDRD) Amer 100 mL/min >60 [facility] Work Phone: Comment on above: GFR Calc Estimated GFR (MDRD) Non-Af Amer 83 mL/min >60 [facility] Work Phone: Comment on above: Non- GFR Calc Troponin I High Sensitivity < 3 pg/mL 3.0-78.0 [facility] Work Phone: Comment on above: Please Note: New Alyson t Units and Gender Specific Reference Ranges. For more information see Policy Stat Procedure [place] High Sensitivity Troponin (TNIH) and attachments. Platelets bldon 03-20-2022 Platelets (Bld) [#/Vol] 236 10*3/uL 150-450 [facility] Work Phone: [phone] Protein Test strip Ql (U)on 03-20-2022 Protein Ql (U) 30 mg/dl Negative [facility] Work Phone: [phone] RBC morphologyon 03-20-2022 RBC morphology finding Nom (Bld) N CHROM NORMAL NORM C&C [facility] Work Phone: Review by pathologiston 03-11 Pathologist review Nadeem (Unsp spec) [Interp] May foll [facility] Work Phone: [phone] Serum or plasma albumin hunter urement (mass/volume)on 03-20-2022 Albumin [Mass/Vol] 3.5 g/dL 3.2-5.[address] [facility] Work Phone: [phone] Serum or plasma calcium hunter urement (mass/volume)on 03-20-2022 Calcium [Mass/Vol] 9.3 mg/dL 8.5-10.[address] [facility] Work Phone: [phone] Serum or plasma cholesterol in HDL measurement (mass/volume)on 03-20-2022 Cholesterol in HDL [Mass/Vol] 54 mg/dL >40 [facility] Work Phone: [phone] Comment on above: The drugs N-Acetylcy steine and Metamizole may falsely depress this assay. Reference Range HDL <40 mg/dL Low HDL Cholesterol HDL >or= 60 mg/dL High HDL Cholesterol Serum or plasma cholesterol in VLDL measurement (mass/volume)on 03-20-2022 Cholesterol in VLDL [Mass/Vol] 12 mg/dL 5-40 [facility] Work Phone: Serum or plasma creatinine m easurement (mass/volume)on 03-20-2022 Creatinine [Mass/Vol] 0.92 mg/dL 0.70-1.30 [facility] Work Phone: Comment on above: The validity of the calculated GFR & GFRAA in patients over 70 years has not been determined. Clinical correlation is essential. Serum or plasma low density lipoprotein (LDL) cholesterol measurement (mass/volume)on 03-20-2022 Cholesterol in LDL [Mass/Vol] 31 mg/dL 0-130 [facility] Work Phone: Serum or plasma urea nitroge n measurement (mass/volume)on 03-20-2022 Urea nitrogen [Mass/Vol] 12 mg/dL 7-18 [facility] Work Phone: Squamous epithelial cells de tection in urine sediment by light microscopyon 03-20-2022 Epithelial cells.squamous LM Ql (Urine sed) 0 SEEN /hpf 0-5 [facility] Work Phone: Thin prep Papanicolaou smear with manual screeningon 03-20-2022 Thin prep Papanicolaou smear with manual screening 12 U/L 15-37 [facility] Work Phone: Thin prep Papanicolaou smear with manual screening 7 5-15 [facility] Work Phone: Urine blood detectionon 03-11 RBC Ql (U) 10 /ul Negative [facility] Work Phone: RBC Ql (U) 0 SEEN /hpf 0-5 [facility] Work Phone: Urine clarityon 03-20-2022 Clarity (U) Clear Clear [facility] Work Phone: Urine color determinationon 03-20-2022 Color (U) Yellow Yellow [facility] Work Phone: Urine glucose detectionon Glucose Ql (U) 1000 mg/dl Normal [facility] Work Phone: Urine leukocyte esterase det ection by dipstickon 03-20-2022 Leukocyte esterase Test strip Ql (U) Negative Negative [facility] Work Phone: Urine pHon 03-20-2022 pH (U) 6.0 [pH] 5.0 - 8.0 [facility] Work Phone: Urine sediment bacteria coun t by microscopy (number/high power field)on 03-20-2022 Bacteria LM.HPF (Urine sed) [#/Area] 0 /[HPF] None Seen [facility] Work Phone: Urine specific gravity measu rementon 03-20-2022 Specific gravity (U) [Rel density] 1.020 1.002-1.030 [facility] Work Phone: Urobilinogen Auto test strip Ql (U)on 03-20-2022 Urobilinogen Ql (U) Normal mg/dl Normal [facility] Work Phone: Vital Signs Date Time Vital Sign Value Performing Clinician Facility 03-23-2024 14:11-0400 Body mass index (BMI) [Ratio] 26.61 kg/m2 Digna Chakraborty APRN.CNP Work Phone: [facility] 03-23-2024 14:11-0400 Body temperature 99 [degF] Digna Chakraborty APRN.FIRE PATROLLER Work Phone: [facility] 03-23-2024 14:11-0400 Body weight 79.38 kg Digna Chakraborty APRN.CNP Work Phone: [facility] 03-23-2024 14:11-0400 Diastolic blood pressure 66 mm[Hg] Digna Chakraborty APRN.FIRE PATROLLER Work Phone: [facility] 03-23-2024 14:11-0400 Heart rate 97 /min Digna Chakraborty APRN.FIRE PATROLLER Work Phone: [facility] 03-23-2024 14:11-0400 Respiratory rate 16 /min Digna Tannhof EXCELSIOR MACHINE OPERATOR.FIRE PATROLLER Work Phone: [facility] 03-23-2024 14:11-0400 SaO2% (BldA) [Mass fraction] 97 % Digna Alashof EXCELSIOR MACHINE OPERATOR.FIRE PATROLLER Work Phone: [facility] 03-23-2024 14:11-0400 Systolic blood pressure 122 mm[Hg] Digna Alashof EXCELSIOR MACHINE OPERATOR.FIRE PATROLLER Work Phone: [facility] 12-28-2023 14:53-0400 Body weight 79.38 kg Heidy Haagen EXCELSIOR MACHINE OPERATOR.FIRE PATROLLER Work Phone: [facility] 12-28-2023 14:53-0400 Diastolic blood pressure 82 mm[Hg] Heidy Haagen EXCELSIOR MACHINE OPERATOR.FIRE PATROLLER Work Phone: [facility] 12-28-2023 14:53-0400 Heart rate 95 /min Heidy Haagen EXCELSIOR MACHINE OPERATOR.FIRE PATROLLER Work Phone: [facility] 12-28-2023 14:53-0400 Respiratory rate 16 /min Heidy Haagen EXCELSIOR MACHINE OPERATOR.FIRE PATROLLER Work Phone: [facility] 12-28-2023 14:53-0400 SaO2% (BldA) [Mass fraction] 97 % Heidy Haagen EXCELSIOR MACHINE OPERATOR.FIRE PATROLLER Work Phone: [facility] 12-28-2023 14:53-0400 Systolic blood pressure 108 mm[Hg] Heidy Haagen EXCELSIOR MACHINE OPERATOR.FIRE PATROLLER Work Phone: [facility] 12-11-2023 11:05-0500 Body weight 81.19 kg Emilia Jacob MD Work Phone: [facility] 12-11-2023 11:05-0500 Diastolic blood pressure 78 mm[Hg] Emilia Jacob MD Work Phone: [facility] 12-11-2023 11:05-0500 Heart rate 96 /min Emilia Jacob MD Work Phone: [facility] 12-11-2023 11:05-0500 Respiratory rate 18 /min Emilia Jacob MD Work Phone: [facility] 12-11-2023 11:05-0500 SaO2% (BldA) [Mass fraction] 94 % Emilia Jacob MD Work Phone: [facility] 12-11-2023 11:05-0500 Systolic blood pressure 118 mm[Hg] Emilia Jacob MD Work Phone: [facility] 11-22-2023 15:41-0500 Body height 177.[address] Emilia Jacob Work Phone: [facility] 11-22-2023 15:41-0500 Body mass index (BMI) [Ratio] 24.8 kg/m2 Dr. Emilia Jacob Work Phone: [facility] 11-22-2023 15:41-0500 Body weight 78.[address] Emilia Jacob Work Phone: [facility] 11-22-2023 15:41-0500 Diastolic blood pressure 79 mm[Hg] Dr. Emilia Jacob Work Phone: [facility] 11-22-2023 15:41-0500 Heart rate 98 /min Dr. Emilia Jacob Work Phone: [facility] 11-22-2023 15:41-0500 Respiratory rate 18 /min Dr. Emilia Jacob Work Phone: [facility] 11-22-2023 15:41-0500 SaO2% (BldA) [Mass fraction] 94 % Dr. Emilia Jacob Work Phone: [facility] 11-22-2023 15:41-0500 Systolic blood pressure 138 mm[Hg] Dr. Emilia Jacob Work Phone: [facility] 11-19-2023 13:48-0500 Diastolic blood pressure 70 mm[Hg] Emilia Jacob MD Work Phone: [facility] 11-19-2023 13:48-0500 Heart rate 80 /min Emilia Jacob MD Work Phone: [facility] 11-19-2023 13:48-0500 Respiratory rate 18 /min Emilia Jacob MD Work Phone: [facility] 11-19-2023 13:48-0500 Systolic blood pressure 118 mm[Hg] Emilia Jacob MD Work Phone: [facility] 11-16-2023 20:50-0500 Diastolic blood pressure 89 mm[Hg] Dr. Emilia Jacob Work Phone: [facility] 11-16-2023 20:50-0500 Systolic blood pressure 152 mm[Hg] Dr. Emilia Jacob Work Phone: [facility] 11-16-2023 16:32-0500 Body height 177.[address] Emilia Jacob Work Phone: [facility] 11-16-2023 16:32-0500 Body temperature 97.4 [degF] Dr. Emilia Jacob Work Phone: [facility] 11-16-2023 16:32-0500 Heart rate 87 /min Dr. Emilia Jacob Work Phone: [facility] 11-16-2023 16:32-0500 Respiratory rate 20 /min Dr. Emilia Jacob Work Phone: [facility] 11-16-2023 16:32-0500 SaO2% (BldA) [Mass fraction] 93 % Dr. Emilia Jacob Work Phone: [facility] 11-04-2023 13:56-0500 Body mass index (BMI) [Ratio] 27.3 kg/m2 Dr. Emilia Jacob Work Phone: [facility] 11-04-2023 13:56-0500 Body temperature 98.2 [degF] Dr. Emilia Jacob Work Phone: [facility] 11-04-2023 13:56-0500 Body weight 81.[address] Emilia Jacob Work Phone: [facility] 11-04-2023 13:56-0500 Diastolic blood pressure 76 mm[Hg] Dr. Emilia Jacob Work Phone: 0(606)999-250033 [place] [address] 11-04-2023 13:56-0500 Heart rate 96 /min Dr. Emilia Jacob Work Phone: 4(570)312-705844 [place] [address] 11-04-2023 13:56-0500 Respiratory rate 16 /min Dr. Emilia Jacob Work Phone: 8(387)668-635744 [place] [address] 11-04-2023 13:56-0500 SaO2% (BldA) [Mass fraction] 93 % Dr. Emilia Jacob Work Phone: 0(484)396-738444 [place] [address] 11-04-2023 13:56-0500 Systolic blood pressure 121 mm[Hg] Dr. Emilia Jacob Work Phone: 5(168)017-616644 [place] [address] 10-25-2023 14:05-0500 Body height 172.[address] Emilia Jacob Work Phone: 2(637)446-671844 [place] [address] 10-25-2023 14:05-0500 Body mass index (BMI) [Ratio] 27 kg/m2 Dr. Emilia Jacob Work Phone: 2(737)349-871744 [place] [address] 10-25-2023 14:05-0500 Body temperature 98.6 [degF] Dr. Emilia Jacob Work Phone: 6(370)621-300644 [place] [address] 10-25-2023 14:05-0500 Body weight 80.[address] Emilia Jacob Work Phone: 9(393)732-562244 [place] [address] 10-25-2023 14:05-0500 Diastolic blood pressure 82 mm[Hg] Dr. Emilia Jacob Work Phone: 7(712)411-818544 [place] [address] 10-25-2023 14:05-0500 Heart rate 93 /min Dr. mEilia Jacob Work Phone: 0(400)576-397044 [place] [address] 10-25-2023 14:05-0500 Respiratory rate 18 /min Dr. Emilia Jacob Work Phone: 1(395)113-142944 [place] [address] 10-25-2023 14:05-0500 SaO2% (BldA) [Mass fraction] 95 % Dr. Emilia Jacob Work Phone: [facility] 10-25-2023 14:05-0500 Systolic blood pressure 133 mm[Hg] Dr. Emilia Jacob Work Phone: [facility] 08-19-2023 11:25-0500 Body temperature 98.49 [degF] Katheryn Guido EXCELSIOR MACHINE OPERATOR.FIRE PATROLLER Work Phone: [facility] 08-19-2023 11:25-0500 Body weight 82.56 kg Katheryn Guido EXCELSIOR MACHINE OPERATOR.FIRE PATROLLER Work Phone: [facility] 08-19-2023 11:25-0500 Diastolic blood pressure 79 mm[Hg] Katheryn Guido EXCELSIOR MACHINE OPERATOR.FIRE PATROLLER Work Phone: [facility] 08-19-2023 11:25-0500 Heart rate 106 /min Katheryn Guido EXCELSIOR MACHINE OPERATOR.FIRE PATROLLER Work Phone: [facility] 08-19-2023 11:25-0500 Respiratory rate 18 /min Katheryn Guido EXCELSIOR MACHINE OPERATOR.FIRE PATROLLER Work Phone: [facility] 08-19-2023 11:25-0500 SaO2% (BldA) [Mass fraction] 94 % Katheryn Guido EXCELSIOR MACHINE OPERATOR.FIRE PATROLLER Work Phone: [facility] 08-19-2023 11:25-0500 Systolic blood pressure 121 mm[Hg] Katheryn Guido EXCELSIOR MACHINE OPERATOR.FIRE PATROLLER Work Phone: [facility] 08-02-2023 14:06-0400 Body height 172.[address] Emilia Jacob Work Phone: [facility] 08-02-2023 14:06-0400 Body mass index (BMI) [Ratio] 27.2 kg/m2 Dr. Emilia Jacob Work Phone: [facility] 08-02-2023 14:06-0400 Body temperature 97.4 [degF] Dr. Emilia Jacob Work Phone: [facility] 08-02-2023 14:06-0400 Body weight 81.[address] Emilia Jacob Work Phone: 9(674)162-288344 [place] [address] 08-02-2023 14:06-0400 Diastolic blood pressure 72 mm[Hg] Dr. Emilia Jacob Work Phone: 9(064)558-308744 [place] [address] 08-02-2023 14:06-0400 Heart rate 99 /min Dr. Emilia Jacob Work Phone: 0(150)373-794044 [place] [address] 08-02-2023 14:06-0400 Respiratory rate 18 /min Dr. Emilia Jacob Work Phone: 4(091)819-844544 [place] [address] 08-02-2023 14:06-0400 SaO2% (BldA) [Mass fraction] 91 % Dr. Emilia Jacob Work Phone: 6(411)057-621744 [place] [address] 08-02-2023 14:06-0400 Systolic blood pressure 109 mm[Hg] Dr. Emilia Jacob Work Phone: 7(134)809-503244 [place] [address] 07-19-2023 13:34-0400 Body mass index (BMI) [Ratio] 27.6 kg/m2 Dr. Emilia Jacob Work Phone: 4(247)954-823344 [place] [address] 07-19-2023 13:34-0400 Body temperature 97.3 [degF] Dr. Emilia Jacob Work Phone: 5(580)197-826644 [place] [address] 07-19-2023 13:34-0400 Body weight 82.[address] Emilia Jacob Work Phone: 4(936)293-852544 [place] [address] 07-19-2023 13:34-0400 Diastolic blood pressure 84 mm[Hg] Dr. Emilia Jacob Work Phone: 3(422)427-754344 [place] [address] 07-19-2023 13:34-0400 Heart rate 88 /min Dr. Emilia Jacob Work Phone: 1(887)968-953044 [place] [address] 07-19-2023 13:34-0400 Respiratory rate 16 /min Dr. Emilia Jacob Work Phone: 2(704)337-544844 [place] [address] 07-19-2023 13:34-0400 SaO2% (BldA) [Mass fraction] 94 % Dr. Emilia Jacob Work Phone: [facility] 07-19-2023 13:34-0400 Systolic blood pressure 145 mm[Hg] Dr. Emilia Jacob Work Phone: [facility] 06-29-2023 14:52-0400 Body weight 82.1 kg Emilia Jacob MD Work Phone: [facility] 06-29-2023 14:52-0400 Diastolic blood pressure 80 mm[Hg] Emilia Jacob MD Work Phone: [facility] 06-29-2023 14:52-0400 Heart rate 76 /min Emilia Jacob MD Work Phone: [facility] 06-29-2023 14:52-0400 Respiratory rate 16 /min Emilia Jacob MD Work Phone: [facility] 06-29-2023 14:52-0400 Systolic blood pressure 126 mm[Hg] Emilia Jacob MD Work Phone: [facility] 05-18-2023 08:13-0400 Body mass index (BMI) [Ratio] 27.3 kg/m2 Dr. Emilia Jacob Work Phone: [facility] 05-18-2023 08:13-0400 Body weight 81.[address] Emilia Jacob Work Phone: [facility] 05-18-2023 08:13-0400 Diastolic blood pressure 80 mm[Hg] Dr. Emilia Jacob Work Phone: [facility] 05-18-2023 08:13-0400 Heart rate 86 /min Dr. Emilia Jacob Work Phone: [facility] 05-18-2023 08:13-0400 Respiratory rate 18 /min Dr. Emilia Jacob Work Phone: [facility] 05-18-2023 08:13-0400 SaO2% (BldA) [Mass fraction] 94 % Dr. Emilia Jacob Work Phone: [facility] 05-18-2023 08:13-0400 Systolic blood pressure 125 mm[Hg] Dr. Emilia Jacob Work Phone: 5(652)071-718344 [place] [address] 04-26-2023 10:50-0400 Body mass index (BMI) [Ratio] 27 kg/m2 Dr. Emilia Jacob Work Phone: 1(578)277-824744 [place] [address] 04-26-2023 10:50-0400 Body temperature 98.3 [degF] Dr. Emilia Jacob Work Phone: 6(235)806-628144 [place] [address] 04-26-2023 10:50-0400 Body weight 80.[address] Emilia Jacob Work Phone: 7(174)837-495744 [place] [address] 04-26-2023 10:50-0400 Diastolic blood pressure 83 mm[Hg] Dr. Emilia Jacob Work Phone: 4(347)550-588144 [place] [address] 04-26-2023 10:50-0400 Heart rate 96 /min Dr. Emilia Jacob Work Phone: 0(343)922-351444 [place] [address] 04-26-2023 10:50-0400 Respiratory rate 16 /min Dr. Emilia Jacob Work Phone: 0(244)327-443644 [place] [address] 04-26-2023 10:50-0400 SaO2% (BldA) [Mass fraction] 92 % Dr. Emilia Jacob Work Phone: 4(085)443-502244 [place] [address] 04-26-2023 10:50-0400 Systolic blood pressure 128 mm[Hg] Dr. Emilia Jacob Work Phone: 8(478)729-701233 [place] [address] 01-07-2023 10:47-0400 Diastolic blood pressure 68 mm[Hg] Dr. Emilia Jacob Work Phone: 4(237)941-579133 [place] [address] 01-07-2023 10:47-0400 Heart rate 72 /min Dr. Emilia Jacob Work Phone: 3(529)818-294333 [place] [address] 01-07-2023 10:47-0400 Respiratory rate 16 /min Dr. Emilia Jacob Work Phone: 3(509)437-026733 [place] [address] 01-07-2023 10:47-0400 SaO2% (BldA) [Mass fraction] 95 % Dr. Emilia Jacob Work Phone: 5(905)610-392963 [address] 01-07-2023 10:47-0400 Systolic blood pressure 127 mm[Hg] Dr. Emilia Jacob Work Phone: 2(262)119-818344 [place] [address] 01-07-2023 09:55-0400 Inhaled oxygen flow rate 2 L/min Dr. Emilia Jacob Work Phone: 4(827)577-748044 [place] [address] 01-07-2023 08:23-0400 Body height 172.[address] Emilia Jacob Work Phone: 8(576)844-304244 [place] [address] 01-07-2023 08:23-0400 Body mass index (BMI) [Ratio] 27.3 kg/m2 Dr. Emilia Jacob Work Phone: 3(403)380-584344 [place] [address] 01-07-2023 08:23-0400 Body temperature 97.4 [degF] Dr. Emilia Jacob Work Phone: 7(164)154-638844 [place] [address] 01-07-2023 08:23-0400 Body weight 81.[address] Emilia Jacob Work Phone: 5(333)606-592944 [place] [address] 12-30-2022 10:36-0400 Body mass index (BMI) [Ratio] 26.4 kg/m2 Dr. Emilia Jacob Work Phone: 6(718)424-130844 [place] [address] 12-30-2022 10:36-0400 Body temperature 98.1 [degF] Dr. Emilia Jacob Work Phone: 5(538)898-897944 [place] [address] 12-30-2022 10:36-0400 Body weight 78.[address] Emilia Jacob Work Phone: 4(001)322-283944 [place] [address] 12-30-2022 10:36-0400 Diastolic blood pressure 80 mm[Hg] Dr. Emilia Jacob Work Phone: 3(751)974-761744 [place] [address] 12-30-2022 10:36-0400 Heart rate 93 /min Dr. Emilia Jacob Work Phone: 2(289)950-405433 [place] [address] 12-30-2022 10:36-0400 Respiratory rate 16 /min Dr. Emilia Jacob Work Phone: [facility] 12-30-2022 10:36-0400 SaO2% (BldA) [Mass fraction] 94 % Dr. Emilia Jacob Work Phone: [facility] 12-30-2022 10:36-0400 Systolic blood pressure 130 mm[Hg] Dr. Emilia Jacob Work Phone: [facility] 12-10-2022 14:02-0500 Body weight 78.25 kg Emilia Jacob MD Work Phone: [facility] 12-10-2022 14:02-0500 Diastolic blood pressure 78 mm[Hg] Emilia Jacob MD Work Phone: [facility] 12-10-2022 14:02-0500 Heart rate 74 /min Emilia Jacob MD Work Phone: [facility] 12-10-2022 14:02-0500 Respiratory rate 16 /min Emilia Jacob MD Work Phone: [facility] 12-10-2022 14:02-0500 Systolic blood pressure 120 mm[Hg] Emilia Jacob MD Work Phone: [facility] 11-17-2022 13:20-0500 Body height 172.[address] Emilia Jacob Work Phone: [facility] 11-17-2022 13:20-0500 Body mass index (BMI) [Ratio] 26.6 kg/m2 Dr. Emilia Jacob Work Phone: [facility] 11-17-2022 13:20-0500 Body weight 79.[address] Emilia Jacob Work Phone: [facility] 11-17-2022 13:20-0500 Diastolic blood pressure 66 mm[Hg] Dr. Emilia Jacob Work Phone: [facility] 11-17-2022 13:20-0500 Heart rate 96 /min Dr. Emilia Jacob Work Phone: [facility] 11-17-2022 13:20-0500 Respiratory rate 18 /min Dr. Emilia Jacob Work Phone: [facility] 11-17-2022 13:20-0500 Systolic blood pressure 111 mm[Hg] Dr. Emilia Jacob Work Phone: [facility] 11-09-2022 15:29-0500 Body temperature 98.1 [degF] Emilia Jacob MD Work Phone: [facility] 11-09-2022 15:29-0500 Body weight 77.56 kg Emilia Jacob MD Work Phone: [facility] 11-09-2022 15:29-0500 Diastolic blood pressure 64 mm[Hg] Emilia Jacob MD Work Phone: [facility] 11-09-2022 15:29-0500 Heart rate 102 /min Emilia Jacob MD Work Phone: [facility] 11-09-2022 15:29-0500 Respiratory rate 18 /min Emilia Jacob MD Work Phone: [facility] 11-09-2022 15:29-0500 SaO2% (BldA) [Mass fraction] 94 % Emilia Jacob MD Work Phone: [facility] 11-09-2022 15:29-0500 Systolic blood pressure 118 mm[Hg] Emilia Jacob MD Work Phone: [facility] 06-02-2022 09:06-0400 Body weight 80.02 kg Emilia Jacob MD Work Phone: [facility] 06-02-2022 09:06-0400 Diastolic blood pressure 72 mm[Hg] Emilia Jacob MD Work Phone: [facility] 06-02-2022 09:06-0400 Heart rate 88 /min Emilia Jacob MD Work Phone: [facility] 06-02-2022 09:06-0400 Respiratory rate 16 /min Emilia Jacob MD Work Phone: [facility] 06-02-2022 09:06-0400 Systolic blood pressure 118 mm[Hg] Emilia Jacob MD Work Phone: [facility] 04-09-2022 14:57-0400 Body weight 77.11 kg Emilia Jacob MD Work Phone: [facility] 04-09-2022 14:57-0400 Diastolic blood pressure 64 mm[Hg] Emilia Jacob MD Work Phone: [facility] 04-09-2022 14:57-0400 Heart rate 78 /min Emilia Jacob MD Work Phone: [facility] 04-09-2022 14:57-0400 Respiratory rate 16 /min Emilia Jacob MD Work Phone: [facility] 04-09-2022 14:57-0400 Systolic blood pressure 108 mm[Hg] Emilia Jacob MD Work Phone: [facility] 04-03-2022 13:08-0400 Body height 172.7 cm Isabell Capone MD Work Phone: [facility] 04-03-2022 13:08-0400 Body temperature 98.2 [degF] Isabell Capone MD Work Phone: [facility] 04-03-2022 13:08-0400 Body weight 78.47 kg Isabell Capone MD Work Phone: [facility] 04-03-2022 13:08-0400 Diastolic blood pressure 58 mm[Hg] Isabell Capone MD Work Phone: [facility] 04-03-2022 13:08-0400 Heart rate 111 /min Isabell Capone MD Work Phone: [facility] 04-03-2022 13:08-0400 SaO2% (BldA) [Mass fraction] 94 % Isabell Capone MD Work Phone: [facility] 04-03-2022 13:08-0400 Systolic blood pressure 96 mm[Hg] Isabell Capone MD Work Phone: [facility] 03-25-2022 08:12-0400 Body temperature 99.4 [degF] Dr. Emilia Jacob Work Phone: [facility] Work Phone: 03-25-2022 08:12-0400 Diastolic blood pressure 85 mm[Hg] Dr. Emilia Jacob Work Phone: [facility] Work Phone: 03-25-2022 08:12-0400 Heart rate 104 /min Dr. Emilia Jacob Work Phone: [facility] Work Phone: 03-25-2022 08:12-0400 Respiratory rate 16 /min Dr. Emilia Jacob Work Phone: [facility] Work Phone: 03-25-2022 08:12-0400 SaO2% (BldA) [Mass fraction] 95 % Dr. Emilia Jacob Work Phone: [facility] Work Phone: 03-25-2022 08:12-0400 Systolic blood pressure 136 mm[Hg] Dr. Emilia Jacob Work Phone: [facility] Work Phone: 03-24-2022 09:56-0400 Body height 172.[address] Emilia Jacob Work Phone: [facility] Work Phone: 03-24-2022 09:56-0400 Body mass index (BMI) [Ratio] 26 kg/m2 Dr. Emilia Jacob Work Phone: [facility] Work Phone: 03-24-2022 09:56-0400 Body weight 77.[address] Emilia Jacob Work Phone: [facility] Work Phone: 03-21-2022 00:08-0400 Body temperature 98 [degF] [facility] Work Phone: 03-21-2022 00:08-0400 Diastolic blood pressure 82 mm[Hg] [facility] Work Phone: 03-21-2022 00:08-0400 Heart rate 90 /min [facility] Work Phone: 03-21-2022 00:08-0400 Respiratory rate 18 /min [facility] Work Phone: 03-21-2022 00:08-0400 SaO2% (BldA) [Mass fraction] 97 % [facility] Work Phone: 03-21-2022 00:08-0400 Systolic blood pressure 136 mm[Hg] [facility] Work Phone: 03-20-2022 19:28-0400 Body height 172.72 cm [facility] Work Phone: 03-20-2022 19:28-0400 Body mass index (BMI) [Ratio] 25 kg/m2 [facility] Work Phone: 03-20-2022 19:28-0400 Body weight 74.84 kg [facility] Work Phone: 02-26-2022 09:08-0400 Body weight 79.24 kg Emilia Jacob MD Work Phone: [facility] 02-26-2022 09:08-0400 Diastolic blood pressure 72 mm[Hg] Emilia Jacob MD Work Phone: [facility] 02-26-2022 09:08-0400 Heart rate 84 /min Emilia Jacob MD Work Phone: [facility] 02-26-2022 09:08-0400 Respiratory rate 16 /min Emilia Jacob MD Work Phone: [facility] 02-26-2022 09:08-0400 SaO2% (BldA) [Mass fraction] 95 % Emilia Jacob MD Work Phone: [facility] 02-26-2022 09:08-0400 Systolic blood pressure 124 mm[Hg] Emilia Jacob MD Work Phone: [facility] 01-23-2022 11:07-0400 Body temperature 98.01 [degF] Emilia Jacob MD Work Phone: [facility] 01-23-2022 11:07-0400 Body weight 77.11 kg Emilia Jacob MD Work Phone: [facility] 01-23-2022 11:07-0400 Diastolic blood pressure 66 mm[Hg] Emilia Jacob MD Work Phone: [facility] 01-23-2022 11:07-0400 Heart rate 74 /min Emilia Jacob MD Work Phone: [facility] 01-23-2022 11:07-0400 Respiratory rate 14 /min Emilia Jacob MD Work Phone: [facility] 01-23-2022 11:07-0400 Systolic blood pressure 128 mm[Hg] Emilia Jacob MD Work Phone: [facility] Encounters Encounter Date Encounter Type Care Provider Facility Start: 04-05-2025 ambulatory Sandoval Chi Selvin Facility:[facility] Start: 04-03-2025 End: 04-03-2025 ambulatory Sandoval Chi Selvin Facility:[facility] Start: 03-29-2025 End: 03-29-2025 ambulatory Sandoval Chi Selvin Facility:[facility] Start: 03-29-2025 Encounter for genera l adult medical examination without abnormal [facility] Start: 03-22-2025 End: 03-23-2025 ambulatory Sandoval Chi Selvin Facility:[facility] Start: 03-22-2025 End: 03-22-2025 ambulatory Sandoval Chi Selvin Facility:[facility] Start: 03-21-2025 ambulatory Sandoval Chi Selvin Facility:[facility] Start: 03-12-2025 End: 03-12-2025 ambulatory Sandoval Chi Selvin Facility:[facility] Start: 03-06-2025 End: 03-06-2025 ambulatory Sandoval Chi Selvin Facility:[facility] Start: 02-19-2025 End: 02-20-2025 ambulatory Sandoval Chi Selvin Facility:[facility] Start: 02-19-2025 End: 02-19-2025 ambulatory Edgar Siska Facility:[facility] Start: 02-13-2025 End: 03-10-2025 ambulatory Sandoval Chi Selvin Facility:[facility] Start: 02-12-2025 End: 02-12-2025 ambulatory Sandoval Chi Selvin Facility:[facility] Start: 02-08-2025 End: 02-08-2025 ambulatory Sandoval Chi Selvin Facility:[facility] Start: 01-08-2025 End: 01-08-2025 ambulatory Vincent Olmstead Facility:[facility] Start: 01-03-2025 End: 01-03-2025 ambulatory Andres Shipley Facility:[facility] Start: 12-29-2024 End: 12-29-2024 ambulatory Caitlin KAN Facility:[facility] Start: 12-05-2024 End: 12-05-2024 ambulatory Sandoval Chi Selvin Facility:[facility] Start: 11-20-2024 End: 11-20-2024 ambulatory Sandoval Chi Selvin Facility:[facility] Start: 11-08-2024 End: 11-08-2024 ambulatory Sandoval Chi Selvin Facility:[facility] Start: 09-27-2024 End: 09-27-2024 ambulatory Sandoval Chi Selvin Facility:[facility] Start: 09-18-2024 End: 10-10-2024 ambulatory Sandoval Chi Selvin Facility:[facility] Start: 08-14-2024 End: 08-14-2024 ambulatory Sandoval Chi Selvin Facility:[facility] Start: 08-01-2024 End: 08-10-2024 ambulatory Sandoval Chi Selvin Facility:[facility] Start: 07-06-2024 End: 07-06-2024 ambulatory Sandoval Chi Selvin Facility:[facility] Start: 07-04-2024 End: 07-04-2024 ambulatory Sandoval Chi Selvin Facility:[facility] Start: 06-23-2024 End: 06-23-2024 ambulatory Sandoval Chi Selvin Facility:[facility] Start: 06-06-2024 End: 06-06-2024 ambulatory [facility] Start: 06-06-2024 End: 06-06-2024 Patient encounter procedure Maci L Rainer [facility] Comment on above: Population Health Na vigation Outreach ([employer],[place] ) Start: 06-02-2024 End: 06-02-2024 ambulatory [facility] Facility:[facility] Start: 05-18-2024 Telephone encounter Emilia briones MD Work Phone: [facility] Comment on above: Release Of Medical R ecords ([facility]) Start: 05-11-2024 End: 05-11-2024 ambulatory Sandoval Chi Selvin Facility:[facility] Start: 04-28-2024 End: 04-28-2024 ambulatory Lucas KAN Facility:[facility] Start: 04-27-2024 Telephone encounter Emilia briones MD Work Phone: [facility] Comment on above: Medication Problem Start: 03-27-2024 Telephone encounter Digna aguirre APRN.FIRE PATROLLER Work Phone: [facility] Comment on above: Results (Labs/Urine ) Start: 03-24-2024 End: 03-24-2024 ambulatory EMILIA Jeanmarie [facility] Facility:[facility] Start: 03-23-2024 End: 03-23-2024 ambulatory [facility] Facility:[facility] Start: 03-23-2024 End: 03-23-2024 Patient encounter procedure Digna Chakraborty APRN.FIRE PATROLLER Work Phone: [facility] Comment on above: Illness (Primary Dx) ; Night sweats; Nausea; Chondrosarcoma (HCC) Start: 03-12-2024 Refill Raman CLOUD RN.FIRE PATROLLER Work Phone: [facility] Comment on above: Refill Request Start: 02-23-2024 Refill Emilia aguirre MD Work Phone: [facility] Comment on above: Refill Request Start: 02-14-2024 Refill Emilia aguirre MD Work Phone: [facility] Comment on above: Refill Request Start: 12-28-2023 End: 12-28-2023 Office outpatient visit 25 minutes Heidy Singleton KANDACE Work Phone: [facility] Comment on above: Type 2 diabetes delia itus without complication, without long- term current use of insulin (HCC) (Primary Dx); Chondrosarcoma (HCC); Pure hypercholesterolemia; 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); Atrial fibrillation, unspecified type (HCC); Essential hypertension, benign; Hyperlipidemia, unspecified hyperlipidemia type Start: 12-28-2023 End: 12-28-2023 ambulatory EMILIA JACOB Facility:[facility] Start: 12-24-2023 End: 12-24-2023 ambulatory EMILIA JACOB Facility:[facility] Start: 12-17-2023 Refill Emilia aguirre MD Work Phone: [facility] Comment on above: Refill Request Start: 12-11-2023 End: 12-11-2023 ambulatory EMILIA JACOB Facility:[facility] Start: 12-11-2023 End: 12-11-2023 Patient encounter procedure Emilia Jacob MD Work Phone: [facility] Comment on above: Cough, unspecified t ype (Primary Dx); Essential hypertension, benign; Atrial fibrillation, unspecified type (HCC); Type 2 diabetes mellitus without complication, without long-term current use of insulin (HCC); Chondrosarcoma (HCC); 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 Emilia Jacob Work Phone: [facility] Work Phone: Start: 11-22-2023 End: 11-22-[address] 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 Emilia Jacob Work Phone: [facility] Work Phone: Start: 11-04-2023 End: 11-04-[address] Emilia Jacob Work Phone: [facility] Work Phone: Start: 11-01-2023 End: 11-01-[address] Emilia Jacob Work Phone: [facility] Work Phone: Start: 11-01-2023 End: 11-01-[address] Emilia Jacob Work Phone: [facility] Work Phone: Start: 10-25-2023 End: 10-25-[address] Emilia Jacob Work Phone: [facility] Work Phone: Start: 09-16-2023 Refill Emilia aguirre MD Work Phone: [facility] Comment on above: Refill Request Start: 08-30-2023 Refill Emilia aguirre MD Work Phone: [facility] Comment on above: Refill Request Start: 08-20-2023 Telephone encounter Katheryn Lora APRN.FIRE PATROLLER Work Phone: [facility] Comment on above: Results Start: 08-19-2023 End: 08-19-2023 ambulatory EMILIA JACOB Facility:[facility] Start: 08-19-2023 End: 08-19-2023 Patient encounter procedure Katheryn Lora APRN.FIRE PATROLLER Work Phone: [facility] Comment on above: URI with cough and c ongestion (Primary Dx) Start: 08-02-2023 End: 08-02-[address] Emilia Jacob Work Phone: [facility] Work Phone: Start: 07-28-2023 End: 07-28-[address] Emilia Jacob Work Phone: [facility] Work Phone: Start: 07-28-2023 End: 07-28-[address] Emilia Jacob Work Phone: [facility] Work Phone: Start: 07-19-2023 End: 07-19-[address] Emilia Jacob Work Phone: [facility] Work Phone: Start: 06-29-2023 End: 06-29-2023 ambulatory EMILIA JACOB Facility:[facility] Start: 06-29-2023 End: 06-29-2023 Patient encounter procedure Emilia Jacob MD Work Phone: [facility] Comment on above: Type 2 diabetes delia itus without complication, without long- term current use of insulin (HCC) (Primary Dx); Pure hypercholesterolemia; Essential hypertension, benign; History of CVA (cerebrovascular accident) Start: 06-25-2023 End: 06-25-2023 ambulatory EMILIA JACOB Facility:[facility] Start: 06-07-2023 Refill Emilia aguirre MD Work Phone: [facility] Comment on above: Refill Request Start: 05-18-2023 End: 05-18-[address] Emilia Jacob Work Phone: [facility] Work Phone: Start: 04-26-2023 End: 04-26-[address] Emilia Jacob Work Phone: [facility] Work Phone: Start: 03-24-2023 Telephone encounter Emilia briones MD Work Phone: [facility] Comment on above: Medication Problem Start: 02-03-2023 Telephone encounter Emilia briones MD Work Phone: [facility] Comment on above: Patient Update Refill Request Start: 01-07-2023 End: 01-07-[address] Emilia Jacob Work Phone: [facility] Work Phone: Start: 01-07-2023 End: 01-07-[address] Emilia Jacob Work Phone: [facility] Start: 12-30-[address] Emilia Jacob Work Phone: [facility] Start: 12-30-2022 End: 12-30-[address] Emilia Jacob Work Phone: [facility] Start: 12-28-2022 Refill Emilia aguirre MD Work Phone: [facility] Comment on above: Refill Request Start: 12-17-2022 End: 12-17-[address] Emilia Jacob Work Phone: [facility] Work Phone: Start: 12-17-2022 End: 12-17-[address] 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 Emilia Jacob Work Phone: [facility] Start: 11-27-2022 Non-patient / Non-visit Dr. Kelly Jacob Work Phone: [facility] Start: 11-25-2022 Non-patient / Non-visit Dr. Kelly Jacob Work Phone: [facility] Start: 11-25-2022 End: 11-25-[address] Emilia Jacob Work Phone: [facility] Start: 11-17-2022 End: 11-17-[address] Emilia Jacob Work Phone: [facility] Work Phone: Start: 11-17-2022 End: 11-17-[address] [facility] Start: 11-09-2022 End: 11-09-2022 Patient encounter procedure Emilia Jacob MD Work Phone: [facility] Comment on above: Cough, unspecified t ype (Primary Dx); Chest congestion; Sinus congestion Start: 11-08-2022 Víctor CLOUD RN.FIRE PATROLLER Work Phone: [facility] Comment on above: Refill Request Start: 06-02-2022 End: 06-02-2022 Patient encounter procedure Emilia Jacob MD Work Phone: [facility] Comment on above: Type 2 diabetes delia itus without complication, without long- term current use of insulin (HCC) (Primary Dx); Essential hypertension, benign; Hyperlipidemia, unspecified hyperlipidemia type; 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); Cerebrovascular accident (CVA), unspecified mechanism (HCC); Atrial fibrillation, unspecified type (HCC); ED (erectile dysfunction) of organic origin; Fatigue, unspecified type; GERD without esophagitis Start: 04-28-2022 Telephone encounter Emilia briones MD Work Phone: [facility] Comment on above: Results Start: 04-27-2022 Telephone encounter Emilia briones MD Work Phone: [facility] Comment on above: Patient Update; Appo intment Start: 04-09-2022 End: 04-09-2022 Patient encounter procedure Emilia Jacob MD Work Phone: [facility] Comment on above: Essential hypertensi on, benign (Primary Dx); Type 2 diabetes mellitus without complication, without long-term current use of insulin (HCC); 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 Kelly Jacob Work Phone: [facility] Start: 03-23-2022 Non-patient / Non-visit Dr. Kelly Jacob Work Phone: [facility] Start: 03-22-2022 Non-patient / Non-visit Dr. Kelly Jacob Work Phone: [facility] Start: 03-21-2022 End: 03-25-2022 Evaluation and management of inpatient [facility] Emilia [facility] Start: 03-21-2022 Non-patient / Non-visit Dr. 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); Need for COVID-19 vaccine Start: 01-23-2022 ambulatory Emilia aguirre MD Work Phone: [facility] Comment on above: Nausea Start: 01-23-2022 End: 01-23-2022 Patient encounter procedure Emilia Jacob MD Work Phone: [facility] Comment on above: Nausea (Primary Dx); Essential hypertension, benign; Type 2 diabetes mellitus without complication, without long-term current use of insulin (HCC); History of CVA (cerebrovascular accident); Depression, unspecified depression type Start: 01-15-2022 Refill Emilia aguirre MD Work Phone: [facility] Comment on above: Refill Request Start: 12-02-2021 Refill Emilia aguirre MD Work Phone: [facility] Comment on above: Refill Request Start: 02-11-2021 ambulatory STEFFI AMADOR Fac ility:[facility] Start: 01-07-2021 ambulatory EMILIA JACOB Facil ity:[facility] Procedures Date Procedure Procedure Detail Performing Clinician Start: 11-16-2023 X-ray of chest posteroanterior view Dr. Emilia Jacob Work Phone: Start: 11-01-2023 CT of thorax with contrast Dr. mEilia Jacob Work Phone: Start: 07-28-2023 CT of thorax with contrast Dr. Emilia Jacob Work Phone: Start: 01-07-2023 Biopsy/Inj or Needle Placement Dr. Emilia Jacob Work Phone: Start: 12-17-2022 CT of thorax with contrast Dr. Emilia Jacob Work Phone: Start: 12-09-[address] Emilia rushing Work Phone: Start: 11-17-2022 Plain chest X-ray Dr. Emilia Jacob Work Phone: Start: 03-24-[address] Emilia Jacob Work Phone: Start: 03-24-[address] Emilia cameron Work Phone: Start: 03-24-2022 Total cholecystectomy and exploration of common bile duct Dr. Emilia Jacob Work Phone: Start: 03-20-2022 Computed tomography of abdomen and pelvis with intravenous contrast Start: 03-20-2022 Ultrasonography of abdomen Start: 02-26-2022 PFIZER-BIONTECH COVID-19 VACCINE, AGE 12+ YR (DIAZ TOP) Emilia Jacob MD Work Phone: History of cholecystectomy Status post laparoscopic cholecystectomy Dr. Emilia Jacob Work Phone: History of cholecystectomy Status post laparoscopic cholecystectomy Isabell Capone MD Work Phone: Plan of Treatment Date Care Activity Detail Author Start: 01-15-2031 Urine microalbumin profile [facility] Start: 12-23-2024 Hepatitis B surface antibody level LDL Cholesterol [facility] Start: 06-29-2024 End: 06-29-2024 Patient encounter procedure 06/29/2024 2:00 PM EDT Office Visit [facility] [address] [place] [address] Digna Chakraborty APRN.FIRE PATROLLER [address] [facility] [place] [id number] 6 month follow up [facility] Comment on above: 6 month follow up Start: 06-25-2024 Hemoglobin A1c measurement HbA1C [facility] Start: 06-25-2024 Hepatitis B screening Urine Albumin:Creatinine Ratio [facility] Start: 06-25-2024 Hepatitis B surface antibody level LDL Cholesterol [facility] Start: 06-11-2024 Influenza [facility] Start: 03-23-2024 End: 06-22-2024 Bacteria identified in Urine by Culture URINE CULTURE Microbiology Routine Illness Night sweats Expected: 03/23/2024, Expires: 06/22/2024 [facility] Comment on above: Expected: 03/23/2024, Expires: Start: 03-23-2024 End: 06-22-2024 CBC W Auto Differential panel - Blood COMPLETE BLOOD COUNT AND DIFFERENTIAL Lab Routine Illness Night sweats Expected: 03/23/2024, Expires: 06/22/2024 [facility] Work Phone: Comment on above: Expected: 03/23/2024, Expires: 4 Start: 03-23-2024 End: 06-22-2024 Comprehensive metabolic 2000 panel - Serum or Plasma COMPREHENSIVE METABOLIC PANEL Lab Routine Illness Night sweats Expected: 03/23/2024, Expires: 06/22/2024 [facility] Comment on above: Expected: 03/23/2024, Expires: 4 Start: 03-23-2024 End: 06-22-2024 Urinalysis complete panel - Urine URINALYSIS, WITH MICROSCOPIC Lab Routine Illness Night sweats Expected: 03/23/2024, Expires: 06/22/2024 [facility] Comment on above: Expected: 03/23/2024, Expires: 4 Start: 12-28-2023 End: 02-27-2024 CBC panel - Blood by Automated count CBC Lab Routine Essential hypertension, benign Expected: 12/28/2023 (Approximate), Expires: 02/27/2024 [facility] Work Phone: Comment on above: Expected: 12/28/2023 (Approximate), Expi res: 02/27/2024 Start: 12-28-2023 End: 02-27-2024 Comprehensive metabolic 2000 panel - Serum or Plasma COMP METABOLIC PANEL Lab Routine Pure hypercholesterolemia Type 2 diabetes mellitus without complication, without long-term current use of insulin (HCC) Essential hypertension, benign Expected: 12/28/2023 (Approximate), Expires: 02/27/2024 [facility] Work Phone: Comment on above: Expected: 12/28/2023 (Approximate), Expi res: 02/27/2024 Start: 12-28-2023 End: 02-27-2024 Hemoglobin A1c in Blood HGB A1C Lab Routine Type 2 diabetes mellitus without complication, without long-term current use of insulin (HCC) Expected: 12/28/2023 (Approximate), Expires: 02/27/2024 [facility] Work Phone: Comment on above: Expected: 12/28/2023 (Approximate), Expi res: 02/27/2024 Start: 12-28-2023 End: 02-27-2024 Lipid 1996 panel - Serum or Plasma LIPID PANEL BASIC Lab Routine Pure hypercholesterolemia Type 2 diabetes mellitus without complication, without long-term current use of insulin (HCC) Essential hypertension, benign Expected: 12/28/2023 (Approximate), Expires: 02/27/2024 [facility] Work Phone: Comment on above: Expected: 12/28/2023 (Approximate), Expi res: 02/27/2024 Start: 12-24-2023 Hemoglobin A1c measurement HbA1C [facility] Start: 12-24-2023 Hemoglobin A1c/Hemoglobin.total in Blood HbA1C [facility] Start: 12-04-2023 Hepatitis B surface antibody level LDL CHOLESTEROL [facility] Start: 11-19-2023 Covid-19 Vaccine () Covid-19 Vaccine () [facility] Start: 11-16-2023 [facility] Start: 10-11-2023 Advance Directive Discussion Advance Directive Discussion [facility] Start: 08-19-2023 End: 09-02-2023 COVID & INFLUENZA A/B & RSV NAAT, ROUTINE [facility] Work Phone: Comment on above: Expected: 08/19/2023, Expires: Start: 08-14-2023 Hepatitis B surface antibody level LDL CHOLESTEROL [facility] Start: 07-06-2023 Glaucoma screening Dilated Retinal Exam [facility] Start: 07-06-2023 Hepatitis C antibody, confirmatory test DILATED RETINAL EXAM [facility] Start: 06-12-2023 End: 08-12-2023 ALBUMIN/CREAT RATIO RND UR ALBUMIN/CREAT RATIO RND UR Lab Routine Type 2 diabetes mellitus without complication, without long-term current use of insulin (HCC) Expected: 06/12/2023 (Approximate), Expires: 08/12/2023 [facility] Work Phone: Comment on above: Expected: 06/12/2023 (Approximate), Expi res: 08/12/2023 Start: 06-12-2023 End: 08-12-2023 Comprehensive metabolic 2000 panel - Serum or Plasma COMP METABOLIC PANEL Lab Routine Type 2 diabetes mellitus without complication, without long-term current use of insulin (HCC) Pure hypercholesterolemia History of CVA (cerebrovascular accident) Expected: 06/12/2023 (Approximate), Expires: 08/12/2023 [facility] Work Phone: Comment on above: Expected: 06/12/2023 (Approximate), Expi res: 08/12/2023 Start: 06-12-2023 End: 08-12-2023 Hemoglobin A1c in Blood HGB A1C Lab Routine Type 2 diabetes mellitus without complication, without long-term current use of insulin (HCC) Expected: 06/12/2023 (Approximate), Expires: 08/12/2023 [facility] Work Phone: Comment on above: Expected: 06/12/2023 (Approximate), Expi res: 08/12/2023 Start: 06-12-2023 End: 08-12-2023 Lipid 1996 panel - Serum or Plasma LIPID PANEL BASIC Lab Routine Pure hypercholesterolemia History of CVA (cerebrovascular accident) Expected: 06/12/2023 (Approximate), Expires: 08/12/2023 [facility] Work Phone: Comment on above: Expected: 06/12/2023 (Approximate), Expi res: 08/12/2023 Start: 06-11-2023 Influenza vaccination [facility] Start: 06-03-2023 Hemoglobin A1c/Hemoglobin.total in Blood HBA1C [facility] Start: 04-26-2023 Patient referral [facility] Work Phone: Start: 02-20-2023 Hepatitis B screening URINE ALBUMIN:CREATININE RATIO [facility] Start: 02-20-2023 Hepatitis B surface antibody level LDL CHOLESTEROL [facility] Start: 02-11-2023 Hemoglobin A1c/Hemoglobin.total in Blood HBA1C [facility] Start: 01-07-2023 Following clinical pathway protocol [facility] Start: 01-07-2023 Catheterization of vein [facility] Start: 01-07-2023 Oxygen therapy [facility] Start: 01-07-2023 Patient discharge [facility] Start: 01-07-2023 Vital signs measurements [facility] Start: 12-16-2022 COVID-19 VACCINE (6 - Moderna series) COVID-19 VACCINE (6 - Moderna series) [facility] Start: 10-11-2022 ADVANCE DIRECTIVE DISCUSSION ADVANCE DIRECTIVE DISCUSSION [facility] Start: 08-07-2022 Hepatitis B surface antibody level LDL CHOLESTEROL [facility] Start: 08-02-2022 End: 10-02-2022 Comprehensive metabolic 2000 panel - Serum or Plasma COMP METABOLIC PANEL Lab Routine Type 2 diabetes mellitus without complication, without long-term current use of insulin (HCC) Essential hypertension, benign Hyperlipidemia, unspecified hyperlipidemia type Expected: 08/02/2022 (Approximate), Expires: 10/02/2022 [facility] Work Phone: Comment on above: Expected: 08/02/2022 (Approximate), Expi res: 10/02/2022 Start: 08-02-2022 End: 10-02-2022 Hemoglobin A1c in Blood HGB A1C Lab Routine Type 2 diabetes mellitus without complication, without long-term current use of insulin (HCC) Expected: 08/02/2022 (Approximate), Expires: 10/02/2022 [facility] Work Phone: Comment on above: Expected: 08/02/2022 (Approximate), Expi res: 10/02/2022 Start: 08-02-2022 End: 10-02-2022 Lipid 1996 panel - Serum or Plasma LIPID PANEL BASIC Lab Routine Essential hypertension, benign Hyperlipidemia, unspecified hyperlipidemia type Expected: 08/02/2022 (Approximate), Expires: 10/02/2022 [facility] Work Phone: Comment on above: Expected: 08/02/2022 (Approximate), Expi res: 10/02/2022 Start: 07-28-2022 Hemoglobin A1c/Hemoglobin.total in Blood HBA1C [facility] Start: 06-11-2022 Influenza vaccination INFLUENZA (#1) [facility] Start: 05-29-2022 End: 07-29-2022 Comprehensive metabolic 2000 panel - Serum or Plasma COMP METABOLIC PANEL Lab Routine Pure hypercholesterolemia Type 2 diabetes mellitus without complication, without long-term current use of insulin (HCC) Expected: 05/29/2022 (Approximate), Expires: 07/29/2022 [facility] Work Phone: Comment on above: Expected: 05/29/2022 (Approximate), Expi res: 07/29/2022 Start: 05-29-2022 End: 07-29-2022 Hemoglobin A1c/Hemoglobin.total in Blood HGB A1C Lab Routine Type 2 diabetes mellitus without complication, without long-term current use of insulin (HCC) Expected: 05/29/2022 (Approximate), Expires: 07/29/2022 [facility] Work Phone: Comment on above: Expected: 05/29/2022 (Approximate), Expi res: 07/29/2022 Start: 05-29-2022 End: 07-29-2022 LIPID PANEL BASIC LIPID PANEL BASIC Lab Routine Pure hypercholesterolemia Expected: 05/29/2022 (Approximate), Expires: 07/29/2022 [facility] Work Phone: Comment on above: Expected: 05/29/2022 (Approximate), Expi res: 07/29/2022 Start: 05-23-2022 Hemoglobin A1c/Hemoglobin.total in Blood HBA1C [facility] Start: 03-25-2022 Patient discharge [facility] Work Phone: Start: 03-23-2022 Care planning and problem solving actions [facility] Work Phone: Start: 03-22-2022 Care planning and problem solving actions [facility] Work Phone: Start: 03-21-2022 Admission procedure [facility] Work Phone: Start: 03-21-2022 Application of intermittent pneumatic compression device [facility] Work Phone: Start: 03-21-2022 Following clinical pathway protocol [facility] Work Phone: Start: 03-21-2022 Assessment of risk of venous thromboembolism [facility] Work Phone: Start: 03-21-2022 Care regimes management [facility] Work Phone: Start: 03-21-2022 Insertion of catheter into peripheral vein [facility] Work Phone: Start: 03-21-2022 Notification of physician [facility] Work Phone: Start: 03-21-2022 Providing care according to standard [facility] Work Phone: Start: 03-21-2022 Provision of activity privileges [facility] Work Phone: Start: 03-21-2022 Referral to general surgeon [facility] Work Phone: Start: 03-21-2022 [facility] Work Phone: Start: 03-21-2022 Verification routine [facility] Work Phone: Start: 03-21-2022 [facility] - [place] Work Phone: Start: 02-11-2022 Hemoglobin A1c/Hemoglobin.total in Blood HBA1C [facility] Start: 10-11-2021 ADVANCE DIRECTIVE DISCUSSION ADVANCE DIRECTIVE DISCUSSION [facility] Start: 05-08-2020 Hepatitis B screening URINE ALBUMIN:CREATININE RATIO [facility] Start: 1995 Hepatitis B Vaccine (1 of 3 - Risk 3-dose series) Hepatitis B Vaccine (1 of 3 - Risk 3-dose series) [facility] Start: 1995 RSV Vaccine (1 - 1-dose 60+ series) RSV Vaccine (1 - 1-dose 60+ series) [facility] Start: 1953 Anxiety Screening Anxiety Screening [facility] Start: 1945 3 comp foot exam completed DIABETIC FOOT EXAM [facility] Start: 1945 Diabetic foot examination Diabetic Foot Exam [facility] Start: 1945 Hepatitis C antibody, confirmatory test DILATED RETINAL EXAM [facility] CT Chest W contrast IV [facility] CT Chest W contrast IV [facility] Patient Education [facility] Work Phone: Patient referral [facility] Work Phone: ROUTINE FLU A/B + RSV ROUTINE FL U A/B + RSV Lab Routine URI with cough and congestion 08/19/2023 12:27 PM [facility] Work Phone: SARS-CoV-2 (COVID-19 ) RNA [Presence] in Respiratory specimen by VEL with probe detection COVID NAAT, UPPER RESPIRATORY, ROUTINE Microbiology Routine URI with cough and congestion 08/19/2023 12:27 PM [facility] Work Phone: UA DIP, URINE (POC) UA DIP, URIN E (POC) Lab Routine Illness Night sweats 1 Occurrences starting 03/23/2024 [facility] Comment on above: 1 Occurrences starting 03/23/2024 [facility] Immunizations Immunization Date Immunization Notes Care Provider Eric magallanes 07-19-2023 COVID-19 vaccine, ag e 12+ yr, season ([employer]) Katheryn Lora APRN.FIRE PATROLLER Work Phone: [facility] 07-19-2023 influenza, high dose seasonal, preservative-free Katheryn Guido EXCELSIOR MACHINE OPERATOR.FIRE PATROLLER Work Phone: [facility] 07-19-2023 influenza virus vacc ine, unspecified formulation Emilia Jacob MD Work Phone: [facility] 08-18-2022 COVID-19 booster vaccine, age 12+ yr, bivalent (P[employer]ZER-BIONTECH) Raman Mckeon EXCELSIOR MACHINE OPERATOR.FIRE PATROLLER Work Phone: [facility] 07-23-2022 influenza, high dose seasonal, preservative-free Raman Mckeon EXCELSIOR MACHINE OPERATOR.FIRE PATROLLER Work Phone: [facility] 07-23-2022 influenza virus vacc ine, unspecified formulation Emilia Jacob MD Work Phone: [facility] 02-26-2022 COVID-19 vaccine, ag e 12+ yr (PFIZER-BIONTECH - DIAZ TOP) Emilia Jacob MD Work Phone: [facility] 07-03-2021 influenza, high-dose , quadrivalent vaccine (FLUZONE HIGH DOSE QUADRIVALENT) Emilia Jacob MD Work Phone: [facility] 01-15-2021 tetanus toxoid, redu fabian diphtheria toxoid, and acellular pertussis vaccine, adsorbed Emilia Jacob MD Work Phone: [facility] 12-05-2020 COVID-19 vaccine, fu ll dose (MODERNA) Emilia Jacob MD Work Phone: [facility] Work Phone: 11-07-2020 COVID-19 vaccine, fu ll dose (MODERNA) Emilia Jacob MD Work Phone: [facility] Work Phone: 07-03-2020 influenza, high dose seasonal, preservative-free Emilia Jacob MD Work Phone: [facility] 09-12-2019 zoster vaccine recombinant Emilia Jacob MD Work Phone: [facility] 07-14-2019 influenza, high dose seasonal, preservative-free Emilia Jacob MD Work Phone: [facility] 07-08-2019 zoster vaccine recombinant Emilia Jacob MD Work Phone: [facility] 12-29-2017 pneumococcal polysaccharide vaccine, 23 valent Emilia Jacob MD Work Phone: [facility] 02-27-2017 pneumococcal conjuga te vaccine, 13 valent Emilia Jacob MD Work Phone: [facility] 10-05-2016 tetanus toxoid, redu fabian diphtheria toxoid, and acellular pertussis vaccine, adsorbed Emilia Jacob MD Work Phone: [facility] Work Phone: 09-11-2015 pneumococcal conjuga te vaccine, 13 valent Emilia Jacob MD Work Phone: [facility] 08-05-2015 influenza, seasonal, injectable Emilia Jacob MD Work Phone: [facility] 01-17-2014 tetanus and diphther ia toxoids, adsorbed, preservative free, for adult use (5 Lf of tetanus toxoid and 2 Lf of diphtheria toxoid) Emilia Jacob MD Work Phone: [facility] Work Phone: 07-04-2009 influenza virus vacc ine, unspecified formulation Emilia Jacob MD Work Phone: [facility] Work Phone: 06-23-2009 zoster vaccine, live Emilia baer MD Work Phone: [facility] Work Phone: 08-16-2008 influenza virus vacc ine, unspecified formulation Emilia Jacob MD Work Phone: [facility] Work Phone: 08-02-2007 influenza virus vacc ine, unspecified formulation Emilia Jacob MD Work Phone: [facility] Work Phone: 08-16-2006 influenza virus vacc ine, unspecified formulation Emilia Jacob MD Work Phone: [facility] 07-11-2004 influenza virus vacc ine, unspecified formulation Emilia Jacob MD Work Phone: [facility] Work Phone: 10-12-2000 pneumococcal polysaccharide vaccine, 23 valent Emilia Jacob MD Work Phone: [facility] Work Phone: 04-03-1999 diphtheria and tetan us toxoids, adsorbed for pediatric use Emilia Jacob MD Work Phone: [facility] Work Phone: Payers Date Payer Category Payer Self-pay [id number] 2021 Medicare AETNA MEDICARE A ETNA MEDICARE PPO [id number] 2021-Present [phone] [address] [place] [address] PPO [id number] 2021 Medicare [id number] 2020 Medicare [id number] Private Health Insurance [id number] 1935 Unknown [id number] [id number] 94 1935 Unknown [id number] 2.840.1.249389.3.579.2.5 94 Unknown [id number] 2.840.1.725043.3.579.2.4 62 Unknown [id number] 2.16.840.1.906401.3.579.2.4 62 Unknown [id number] 2.16840.1.902284.3.579.2.4 62 Unknown [id number] 2.16.840.1.221902.3.579.2.4 62 Unknown [id number] 2.16.840.1.692387.3.579.2.4 62 Unknown [id number] 2.16.840.1.778072.3.579.2.4 62 Unknown [id number] 2.16.840.1.018345.3.579.2.4 62 Unknown [id number] 2.16.840.1.779826.3.579.2.4 62 Unknown [id number] 2.16.840.1.664611.3.579.2.4 62 Unknown [id number] 2.16.840.1.053343.3.579.2.4 62 Unknown [id number] 2.16.840.1.510490.3.579.2.4 62 Unknown [id number] 2.16.840.1.709922.3.579.2.4 62 Unknown [id number] 2.16.840.1.307850.3.579.2.4 62 Unknown [id number] 2.16.840.1.211945.3.579.2.4 62 Unknown [id number] 2.16.840.1.238526.3.579.2.4 62 Unknown [id number] 2.16.840.1.969421.3.579.2.4 62 Unknown [id number] 2.16.840.1.431006.3.579.2.4 62 Unknown [id number] 2.16.840.1.014668.3.579.2.4 62 Unknown [id number] 2.16.840.1.300355.3.579.2.4 62 Unknown [id number] 2.16.840.1.486370.3.579.2.4 62 Unknown [id number] 2.16.840.1.317420.3.579.2.4 62 Unknown [id number] 2.16.840.1.262353.3.579.2.4 62 Unknown [id number] 2.16.840.1.995715.3.579.2.4 62 Unknown [id number] 2.16.840.1.993366.3.579.2.4 62 Unknown [id number] 2.16.840.1.347000.3.579.2.4 62 Unknown [id number] 2.16.840.1.496974.3.579.2.4 62 Unknown [id number] 2.16.840.1.126569.3.579.2.4 62 Unknown [id number] 2.16.840.1.766069.3.579.2.4 62 Unknown [id number] 2.16.840.1.079121.3.579.2.4 62 Unknown [id number] 2.16.840.1.619964.3.579.2.4 62 Unknown [id number] 2.16.840.1.118676.3.579.2.4 62 Social History Date Type Detail Facility Start: 11-24-2017 End: 08-18-2022 Tobacco smoking status NHIS Ex-smoker [facility] Start: 10-11-1959 End: 10-11-1969 History of tobacco use Current smoker [facility] Start: 10-11-1959 End: 10-11-1969 History of tobacco use Cigarette Smoker [facility] Start: 11-20-2021 End: 03-23-2024 Alcohol intake Current drinker of alcohol (finding) [facility] Start: 1935 Sex Assigned At Not on file [facility] Start: 10-29-2021 End: 11-28-2021 Exposure to SARS-CoV-2 (event) Unable to assess [facility] Start: 01-13-2022 End: 06-02-2022 Exposure to SARS-CoV-2 (event) Not sure [facility] Start: 03-20-2022 End: 11-22-2023 Tobacco smoking status [facility] Unknown if ever smoked [facility] [place] Start: 10-02-2020 None [facility] Start: 10-02-2020 Spouse/ Signif icant Other [facility] [place] Start: 10-04-2020 Cigarettes [facility] Start: 1935 Sex Assigned At Male [facility] Start: 04-17-2022 End: 04-27-2022 Exposure to SARS-CoV-2 (event) Yes [facility] Start: 11-24-2017 End: 06-29-2023 Cigarettes smoked current (pack per day) - Reported 2 [facility] Start: 11-24-2017 End: 08-18-2022 Tobacco use and exposure Smokeless tobacco non-user [facility] Start: 02-08-2023 End: 06-29-2023 Tobacco use panel [facility] Adult Depression Screening Assessment 0 [facility] Medical Equipment Procedure Code Equipment Code Equipment Original Text Equipment Identifier Dates Total cholecystectomy with exploration of common bile duct DRESSING,SURGICEL 4x8 FDA Start: 03-24-2022 Total cholecystectomy with exploration of common bile duct Ligation clip, synthetic polymer, non-bioabsorbable [id number] FDA Start: 03-24-2022 Total cholecystectomy with exploration of common bile duct DRESSING,SURGICEL 4x8 FDA Start: 03-24-2022 Total cholecystectomy with exploration of common bile duct DRESSING,SURGICEL 4x8 FDA Start: 03-24-2022 Total cholecystectomy with exploration of common bile duct DRESSING,SURGICEL 4x8 FDA Start: 03-24-2022 Total cholecystectomy with exploration of common bile duct DRESSING,SURGICEL 4x8 FDA Start: 03-24-2022 Total cholecystectomy with exploration of common bile duct DRESSING,SURGICEL 4x8 FDA Start: 03-24-2022 Total cholecystectomy with exploration of common bile duct DRESSING,SURGICEL 4x8 FDA Start: 03-24-2022 Total cholecystectomy with exploration of common bile duct DRESSING,SURGICEL 4x8 FDA Start: 03-24-2022 Goals Date Patient Goal Desired Activity /State Functional Status Date Assessment Result Facility 01-07-2023 Functional status Standby Assist [facility] [place] Work Phone: 03-25-2022 Functional status Ambulates;Bathroom Priv ilege [facility] [place] Work Phone: Mental Status Date Assessment Result Facility 01-07-2023 Cognitive function Voice/Name [facility] Work Phone: 03-25-2022 Cognitive function Voice/Name [facility] Work Phone: Clinical Notes 08-27-2013 to 06-06-2024 Maci Hernandez MA - 06/06/2024 7:23 AM EDTTelephone Encounter - Carolyn Romero MA - 05/18/2024 9:43 AM EDTTelephone Encounter - Carolyn Romero MA - 05/18/2024 9:43 AM EDT Note Date & Type Note Facility 06-06-2024 Note HNO ID: [id number] Author: MACI HERNANDEZ MA Service: ? Author Type: Lead Handler Type: Progress Notes Filed: 06/06/2024 09:27 Note Text: POPULATION HEALTH NAVIGATION OUTREACH Action/Becky Marrero [place] Discuss/Due for: Medicare Wellness, Dilated Retinal Exam, Hgb a1c HCC Score: 0 Outcome: 1st attempt - Spoke to patient/Patti Spouse reports patient switched providers to Sandoval Montalvo MD Updated PCP Field Reason for Outreach Care Gap/HCC or Scheduling Wellness Visits Care Gaps due: Medicare Annual Wellness Visit Diabetic Eye Exam HBA1C Patient Contacted: Spoke to patient/parent/or legal guardian Patient identified by name and : Yes Care Gap/HCC/Scheduling Wellness actions taken: PCP field updated Navigation Signature: Maci Hernandez MA June 06, 2024 7:24 AM [facility] 06-06-2024 History of Present illness Narrative POPULATION HEALTH NAVIGATION OUTREACH Action/Becky Marrero [place] Discuss/Due for: Medicare Wellness, Dilated Retinal Exam, Hgb a1c HCC Score: 0 Outcome: 1st attempt - Spoke to patient/Patti Spouse reports patient switched providers to Sandoval Montalvo MD Updated PCP Field Reason for Outreach Care Gap/HCC or Scheduling Wellness Visits Care Gaps due: Medicare Annual Wellness Visit Diabetic Eye Exam HBA1C Patient Contacted: Spoke to patient/parent/or legal guardian Patient identified by name and : Yes Care Gap/HCC/Scheduling Wellness actions taken: PCP field updated Navigation Signature: Maci Hernandez MA June 06, 2024 7:24 AM documented in this encounter [facility] 06-06-2024 Note Patient Outreach (BRITTANIE TNAV) ZACHARY MCDERMOTT ([id number]) 1935 M Date Time Provider Department 06/06/24 MACI HERNANDEZV During your visit today, we recorded the following information about you: Maci Hernandez MA 06/06/2024 9:27 AM Signed POPULATION HEALTH NAVIGATION OUTREACH Action/Becky Marrero [place] Discuss/Due for: Medicare Wellness, Dilated Retinal Exam, Hgb a1c HCC Score: 0 Outcome: 1st attempt - Spoke to patient/Patti Spouse reports patient switched providers to Sandoval Montalvo MD Updated PCP Field Reason for Outreach Care Gap/HCC or Scheduling Wellness Visits Care Gaps due: Medicare Annual Wellness Visit Diabetic Eye Exam HBA1C Patient Contacted: Spoke to patient/parent/or legal guardian Patient identified by name and : Yes Care Gap/HCC/Scheduling Wellness actions taken: PCP field updated Navigation Signature: Maci Hernandez MA June 06, 2024 7:24 AM Allergies As of Date: 06/06/2024 Noted Allergy Reaction PENICILLINS 09/15/2005 Date Reviewed: 03/23/2024 Reviewed by: Carmen Benítez LPN - Fully Assessed Reason for Visit: Population Health Navigation Outreach [3910] Cmt: Becky Mccarthy [place] Prescriptions as of 06/06/2024 - apixaban (ELIQUIS) 2.5 mg tab(s) Take 1 tablet by mouth two times a day. - FLUoxetine (PROZAC) 40 mg capsule Take 1 capsule by mouth once daily. - pantoprazole DR (PROTONIX) 40 mg tablet Take 1 tablet by mouth daily before breakfast. Take on empty stomach, 1/2 hr before meal. - glimepiride (AMARYL) 2 mg tablet Take 1 tablet by mouth daily with breakfast. - FLUoxetine (PROZAC) 20 mg capsule Take 1 capsule by mouth once daily. Take along with 40 mg capsule - lisinopril (ZESTRIL) 40 mg tablet Take 1 tablet by mouth once daily. - semaglutide (OZEMPIC) 0.25 mg or 0.5 mg (2 mg/3 mL) pen Inject 0.5 mg subcutaneously one time a week. - amLODIPine (NORVASC) 5 mg tablet Take 1 tablet by mouth once daily. - alfuzosin SR (UROXATRAL) 10 mg 24 hr tablet Take 1 tablet by mouth once daily. - atorvastatin (LIPITOR) 80 mg tablet Take 1 tablet by mouth once daily. - dutasteride (AVODART) 0.5 mg capsule Take 1 capsule by mouth once daily. - dulaglutide (TRULICITY) 1.5 mg/0.5 mL pen injector Inject 1.5 mg subcutaneously one time a week. Inject once per week. Discard Pen After - ondansetron orally disintegrating (ZOFRAN ODT) 4 mg disintegrating tablet Take 1 tablet by mouth every 6 hours as needed for nausea/vomiting. - betamethasone dipropionate, augmented (DIPROLENE) 0.05 % cream Dr. Bridger Lomax. Apply as needed for eczema. - multivitamin tablet Take 1 tablet by mouth once daily. Meds Comments as of 06/02/2022: Tylenol as needed, Magnesium every other day, Potassium q other day. Antihistamine at bedtime. 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] 05/07/2009 04/14/2013 Nonspecific abnormal results of liver function *05/07/2009 04/14/2013 Abnormal cardiovascular stress test [R94.39] 08/12/2009 10/27/2016 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] 09/20/2009 02/25/2012 Seborrheic Keratosis [L82.1] 09/20/2009 02/25/2012 Actinic Damage//Sun-Damaged Skin [L57.8] 09/20/2009 02/25/2012 Solar Lentigines [L81.4] 09/20/2009 02/25/2012 Xerosis cutis [L85.3] 09/20/2009 02/25/2012 Impaired fasting glucose [R73.01] 01/01/2010 Epidermal cyst [L72.0] 09/28/2010 02/25/2012 Leg cramps [R25.2] 06/29/2011 02/25/2012 Essential hypertension, benign [I10] 02/25/2012 Folliculitis [L73.9] 07/14/2012 04/14/2013 Pyoderma, unspecified [L08.0] 07/14/2012 04/14/2013 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] 07/14/2012 04/14/2013 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] 07/14/2012 04/14/2013 Actinic Damage//Sun-Damaged Skin [L57.8] 07/14/2012 10/27/2016 Solar Lentigines [L81.4] 07/14/2012 04/14/2013 Irritated//Inflamed Seborrheic Keratosis [L82.0]09/13/2012 03/12/2015 Postinflammatory skin changes [R23.8] 09/13/2012 04/14/2013 Other seborrheic dermatitis [L21.8] 09/13/2012 03/12/2015 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 [facility] 05-18-2024 Telephone encounter Note form sent to [facility] to send. Carolyn Romero MA [facility] 05-18-2024 Miscellaneous Notes form sent to [facility] to send. Carolyn Romero MA OK to send Emilia Jacob MD Office received a medical release form for pt to have records sent to [facility] [employer]. Ok to send? Carolyn Romero MA documented in this encounter [facility] 05-18-2024 Telephone encounter Note OK to send Emilia Jacob MD [facility] 05-18-2024 Telephone encounter Note Office received a medical release form for pt to have records sent to [facility] [employer]. Ok to send? Carolyn Romero MA [facility] 04-27-2024 Telephone encounter Note Patient notified of recommendations, verbalizes understanding of instructions. Carmen Benítez LPN [facility] 04-27-2024 Miscellaneous Notes Patient notified of recommendations, verbalizes understanding of instructions. Carmen Benítez LPN Can you please call the patient's daughter back and let her know that both the diabetic medications that he is taking right now can both cause upset stomach. Digna Chakraborty APRN.AIDA Daughter (Maeve) returns call with patient and below reviewed. Patient requested to add daughter Maeve to chart to receive medical information. Maeve reports that patient has been having an upset stomach for several weeks and is asking if patient could try going off of the glimepiride since he is taking Ozempic (she reports she had same symptom and once she stopped glimepiride upset stomach went away). Requesting call back on [phone] cell phone as they are going on vacation. Jodee Rand, RN The following approved medication requests have been transmitted electronically. Requested Prescriptions Signed Prescriptions Disp Refills apixaban (ELIQUIS) 2.5 mg tab(s) 60 tablet 11 Sig: Take 1 tablet by mouth two times a day. Authorizing Provider: DIGNA CHAKRABORTY APRN.CNP Mark has his Patti calling Emilia Jacob MD today to request to fill RX early for the Eliquis 2.5 mg tablet twice daily, per Patti, they are leaving to go out of town and will be gone when this refill is due next week. Per Patti she filled his medication in the pill container for this trip and found to be 3 tablets short to get him through that time. Pharmacy is [facility] in [place], please advise Patti as she is concerned that patient needs this medication and can not be without it. Patient has been identified by name and birthdate. Duration of symptoms: N/A Person calling: spouse: Patti Call patient Patti at home ok to leave message per patient Patti barber [phone] (home) [phone] (cell) Was an appointment scheduled: No Closing statement: Results or non-symptom based questions: Thank you for calling [facility], your call will be returned within the next business day. Rose Mary Casillas documented in this encounter [facility] 04-27-2024 Telephone encounter Note Can you please call the patient's daughter back and let her know that both the diabetic medications that he is taking right now can both cause upset stomach. Digna Chakraborty APRN.AIDA [facility] 04-27-2024 Telephone encounter Note Daughter (Maeve) returns call with patient and below reviewed. Patient requested to add daughter Maeve to chart to receive medical information. Maeve reports that patient has been having an upset stomach for several weeks and is asking if patient could try going off of the glimepiride since he is taking Ozempic (she reports she had same symptom and once she stopped glimepiride upset stomach went away). Requesting call back on [phone] cell phone as they are going on vacation. Jodee Rand RN [facility] 04-27-2024 Telephone encounter Note The following approved medication requests have been transmitted electronically. Requested Prescriptions Signed Prescriptions Disp Refills apixaban (ELIQUIS) 2.5 mg tab(s) 60 tablet 11 Sig: Take 1 tablet by mouth two times a day. Authorizing Provider: DIGNA CHAKRABORTY APRN.FIRE PATROLLER [facility] 04-27-2024 Telephone encounter Note Mark has his Patti calling Emilia Jacob MD today to request to fill RX early for the Eliquis 2.5 mg tablet twice daily, per Patti, they are leaving to go out of town and will be gone when this refill is due next week. Per Patti she filled his medication in the pill container for this trip and found to be 3 tablets short to get him through that time. Pharmacy is [facility] in [place], please advise Patti as she is concerned that patient needs this medication and can not be without it. Patient has been identified by name and birthdate. Duration of symptoms: N/A Person calling: spouse: Patti Call patient Patti at home ok to leave message per patient Patti barber [phone] (home) [phone] (cell) Was an appointment scheduled: No Closing statement: Results or non-symptom based questions: Thank you for calling [facility], your call will be returned within the next business day. Rose Mary Casillas [facility] 03-27-2024 Telephone encounter Note Pts Patti called and is notified of providers results and instructions. She voices understanding. She states they have an appointment with oncology tomorrow. She states she doesn't think he is still having the urinary symptoms. They will call back in if he is. Lily Schaffer, ABBEY [facility] 03-27-2024 Miscellaneous Notes Pts Patti called and is notified of providers results and instructions. She voices understanding. She states they have an appointment with oncology tomorrow. She states she doesn't think he is still having the urinary symptoms. They will call back in if he is. Lily Schaffer, RN Can you please call the patient and let him know that I reviewed his lab and urine test results. Labs were all relatively normal, glucose was elevated. Microanalysis of urine was normal. 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 If he is still having ongoing symptoms I would recommend that he come in to collect another sample being mindful with proper cleansing. At this time I see no causes for his current symptoms. I would recommend follow-up with oncology. Thank you. Digna Chakraborty APRN.CNP documented in this encounter [facility] 03-27-2024 Telephone encounter Note Can you please call the patient and let him know that I reviewed his lab and urine test results. Labs were all relatively normal, glucose was elevated. Microanalysis of urine was normal. 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 If he is still having ongoing symptoms I would recommend that he come in to collect another sample being mindful with proper cleansing. At this time I see no causes for his current symptoms. I would recommend follow-up with oncology. Thank you. 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 Keep scheduled appointments with Oncology Recommend keeping a food log with any associated symptoms May consider adding on Pepcid 20 mg at bedtime. Follow up pending test results. [facility] History of Present illness Narrative* Digna Chakraborty APRN.AIDA - 03/23/2024 2:00 PM EDT This is a 88 year old male who presents today with: Patient presents with: Acute Visit: feeling unwell HISTORY OF PRESENT ILLNESS: Zachary Mcdermott is a 88 year old male. Patient presents with: Acute Visit: feeling unwell Here in office for nausea and fatigue. Symptoms started several years ago after stroke, refershe never returned to baseline. Sleeping a lot. Symptoms seem to be progressing. Waking up feeling tired, no snoring. Night sweats for the past year. Nausea that seems to wax and wane. Does not seem related to food. Using zofran as needed which is helpeful. BM's normal. Urine does seem smelly. No abdominal pain. 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 Follow up every 6 months. Seeing oncology radiologist. Recently had CT scan, which showed 6.4 x 5.3 x 7.1 cm mass into the right chest. Imaging was stable. Refers that the sarcoma is growing. Difficulty targeting treatment in that area. Was told he has a slow growing tumor. History of GERD, taking Protonix 40 mg daily. Type II diabetic, taking glimepiride 2 mg daily, Ozempic 0.25 mg weekly. BPH, taking Uroxatral 10 mg daily. Used to follow with urology, Dr. Bonilla. PAST MEDICAL HISTORY: PAST MEDICAL HISTORY Diagnosis Date Actinic Damage//Sun-Damaged [...] nodules at L lung base-repeat 6 mo SPEPnegative in 04-18 HBsAg neg, Hep A positive, JUAN MIGUEL negative, HIV western blot negative in 04-18 Broken toe Hyperplasia of prostate Lumbago 10/14/2005 Pure hypercholesterolemia Unspecified essential hypertension PAST SURGICAL HISTORY Procedure Laterality Date COLONOSCOPY FLX DX W/COLLJ SPEC WHEN PFRMD 04/09/2009 PAST SURGICAL HISTORY OF lipoma, neck PAST SURGICAL HISTORY OF 06/11/1980 lumbar laminotomy REMOVAL GALLBLADDER 03/24/2022 ALLERGIES Penicillins MEDICATIONS Current Outpatient Medications Medication Sig FLUoxetine (PROZAC) 40 mg capsule Take 1 capsule by mouth once daily. pantoprazole DR (PROTONIX) 40 mg tablet Take 1 tablet by mouth daily before breakfast. Take on empty stomach, 1/2 hr before meal. glimepiride (AMARYL) 2 mg tablet Take 1 tablet by mouth daily with breakfast. FLUoxetine (PROZAC) 20 mg capsule Take 1 capsule by mouth once daily. Take along with 40 mg capsule lisinopril (ZESTRIL) 40 mg tablet Take 1 tablet by mouth once daily. semaglutide (OZEMPIC) 0.25 mg or 0.5 mg (2 mg/3 mL) pen Inject 0.5 mg subcutaneously one time a week. amLODIPine (NORVASC) 5 mg tablet Take 1 tablet by mouth once daily. alfuzosin SR (UROXATRAL) 10 mg 24 hr tablet Take 1 tablet by mouth once daily. atorvastatin (LIPITOR) 80 mg tablet Take 1 tablet by mouth once daily. apixaban (ELIQUIS) 2.5 mg tab(s) Take 1 tablet by mouth two times a day. dutasteride (AVODART) 0.5 mg capsule Take 1 capsule by mouth once daily. dulaglutide (TRULICITY) 1.5 mg/0.5 mL pen injector Inject 1.5 mg subcutaneously one time a week. Inject once per week. Discard Pen After ondansetron orally disintegrating (ZOFRAN ODT) 4 mg disintegrating tablet Take 1 tablet by mouth every 6 hours as needed for nausea/vomiting. betamethasone dipropionate, augmented (DIPROLENE) 0.05 % cream Dr. Bridger Lomax. Apply as needed foreczema. multivitamin tablet Take 1 tablet by mouth once daily. No current facility-administered medications for this visit. FAMILY HISTORY Problem Relation Age of Onset other (Melanoma) Mother Diabetes Father lung cancer/chf/starvation Diabetes Sister Diabetes Paternal Grandfather Social History Tobacco Use Smoking status: Former Packs/day: 2.00 Years: 10.00 Additional pack years: 0.00 Total pack years: 20.00 Types: Cigarettes Quit date: 10/11/1969 Years since quittin.4 Smokeless tobacco: Never Vaping Use Vaping Use: Never used Substance Use Topics Alcohol use: Yes Comment: ocass REVIEW OF SYSTEMS GENERAL: + Fatigue HEENT: Negative for frequent or significant headaches, No changes in hearing or vision. NECK: Negative for lumps, goiter, pain and significant neck swelling RESPIRATORY: Negative for cough, hemoptysis, wheezing, dyspnea or shortness of breath CARDIOVASCULAR: Negative for chest pain, leg swelling, orthopnea, or palpitations GI: + Nausea : No history of dysuria, frequency or incontinence MUSCULOSKELETAL: Negative for joint pain or swelling. SKIN: Negative for lesions, rash, and itching ENDOCRINE: Negative for cold or heat intolerance, polyuria, polydipsia and goiter NEURO: No history of headaches, syncope, paralysis, seizures or tremors MOOD: Negative for depression, anxiety, or suicidal ideation. EXAM: BP 122/66 Pulse 97 Temp 37.2 C (99 F) Resp 16 Wt 79.4 kg (175 lb) SpO2 97% BMI 26.61 kg/m PHYSICAL EXAM: General Appearance: Well appearing, alert, in no acute distress, well-hydrated, well nourished. Skin: Skin color, texture, turgor normal, no suspicious rashes or lesions. Head: Normocephalic, no masses, lesions, tenderness or abnormalities. Eyes: Anicteric sclera. Extraocular movements are intact. Lungs: Lungs clear to auscultation. No wheezing, rhonchi, rales. Heart: RRR without murmur, gallop, or rubs. No ectopy. Abdomen: Abdomen soft, non-tender. Bowel sounds normal. No masses, organomegaly, Negative CVA tenderness. Peripheral Pulses: Normal, Capillary refill <2secs, strong peripheral pulses, Pulses palpable. Neurologic: Gait normal. Sensation grossly intact. ASSESSMENT/PLAN: 1. Illness - ICD9: 799.9, ICD10: R69 (primary diagnosis) - Get labs and urine testing completed - COMPLETE BLOOD COUNT AND DIFFERENTIAL - COMPREHENSIVE METABOLIC PANEL - UA DIP, URINE (POC) - URINALYSIS, WITH MICROSCOPIC - URINE CULTURE 2. Night sweats - ICD9: 780.8, ICD10: R61 - Same plan as #2. 3. Nausea - ICD9: 787.02, ICD10: R11.0 - Continue with Zofran as needed for nausea. - May consider using Pepcid 20 mg in addition to the Protonix if needed. 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 Follow-up pending test results or sooner as needed. Discussed treatment plan and patient voices understanding. Patient's questions answered appropriately. Medications and potential side effects were discussed and patient voices understanding. Digna Chakraborty APRN.AIDA This note was partially generated using [email or web address] voice recognition system. Note was reviewed for accuracy. There may be minor misspellings or grammar miscues with [email or web address] voice recognition. [facility] NoteHNO ID: [id number] Author: DIGNA CHAKRABORTY APRN.CNP Service: ? Author Type: Nurse Practitioner Type: Progress Notes Filed: 03/23/2024 15:32 Note Text: This is a 88 year old male who presents today with: Patient presents with: Acute Visit: feeling unwell HISTORY OF PRESENT ILLNESS: Zachary Mcdermott is a 88 year old male. Patient presents with: Acute Visit: feeling unwell Here in office for nausea and fatigue. Symptoms started several years ago after stroke, refers he never returned to baseline. Sleeping a lot. Symptoms seem to be progressing. Waking up feeling tired, no snoring. Night sweats for the past year. Nausea that seems to wax and wane. Does not seem related to food. Using zofran as needed which is helpeful. BM's normal. Urine does seem smelly. No abdominal pain. 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 Follow up every 6 months. Seeing oncology radiologist. Recently had CT scan, which showed 6.4 x 5.3 x 7.1 cm mass into the right chest. Imaging was stable. Refers that the sarcoma is growing. Difficulty targeting treatment in that area. Was told he has a slow growing tumor. History of GERD, taking Protonix 40 mg daily. Type II diabetic, taking glimepiride 2 mg daily, Ozempic 0.25 mg weekly. BPH, taking Uroxatral 10 mg daily. Used to follow with urology, Dr. Bonilla. PAST MEDICAL HISTORY: PAST MEDICAL HISTORY Diagnosis Date Actinic Damage//Sun-Damaged [...] Lumbago 10/14/2005 Pure hypercholesterolemia Unspecified essential hypertension PAST SURGICAL HISTORY Procedure Laterality Date COLONOSCOPY FLX DX W/COLLJ SPEC WHEN PFRMD 04/09/2009 PAST SURGICAL HISTORY OF lipoma, neck PAST SURGICAL HISTORY OF 06/11/1980 lumbar laminotomy REMOVAL GALLBLADDER 03/24/2022 ALLERGIES Penicillins MEDICATIONS Current Outpatient Medications Medication Sig FLUoxetine (PROZAC) 40 mg capsule Take 1 capsule by mouth once daily. pantoprazole DR (PROTONIX) 40 mg tablet Take 1 tablet by mouth daily before breakfast. Take on empty stomach, 1/2 hr before meal. glimepiride (AMARYL) 2 mg tablet Take 1 tablet by mouth daily with breakfast. FLUoxetine (PROZAC) 20 mg capsule Take 1 capsule by mouth once daily. Take along with 40 mg capsule lisinopril (ZESTRIL) 40 mg tablet Take 1 tablet by mouth once daily. semaglutide (OZEMPIC) 0.25 mg or 0.5 mg (2 mg/3 mL) pen Inject 0.5 mg subcutaneously one time a week. amLODIPine (NORVASC) 5 mg tablet Take 1 tablet by mouth once daily. alfuzosin SR (UROXATRAL) 10 mg 24 hr tablet Take 1 tablet by mouth once daily. atorvastatin (LIPITOR) 80 mg tablet Take 1 tablet by mouth once daily. apixaban (ELIQUIS) 2.5 mg tab(s) Take 1 tablet by mouth two times a day. dutasteride (AVODART) 0.5 mg capsule Take 1 capsule by mouth once daily. dulaglutide (TRULICITY) 1.5 mg/0.5 mL pen injector Inject 1.5 mg subcutaneously one time a week. Inject once per week. Discard Pen After ondansetron orally disintegrating (ZOFRAN ODT) 4 mg disintegrating tablet Take 1 tablet by mouth every 6 hours as needed for nausea/vomiting. betamethasone dipropionate, augmented (DIPROLENE) 0.05 % cream Dr. Bridger Lomax. Apply as needed for eczema. multivitamin tablet Take 1 tablet by mouth once daily. No current facility-administered medications for this visit. FAMILY HISTORY Problem Relation Age of Onset other (Melanoma) Mother Diabetes Father lung cancer/chf/starvation Diabetes Sister Diabetes Paternal Grandfather Social History Tobacco Use Smoking status: Former Packs/day: 2.00 Years: 10.00 Additional pack years: 0.00 Total pack years: 20.00 Types: Cigarettes Quit date: 10/11/1969 Years since quittin.4 Smokeless tobacco: Never Vaping Use Vaping Use: Never used Substance Use Topics Alcohol use: Yes Comment: ocass REVIEW OF SYSTEMS GENERAL: + Fatigue HEENT: Negative for frequent or significant headaches, No changes in hearing or vision. NECK: Negative for lumps, goiter, pain and significant neck swelling RESPIRATORY: Negative for cough, hemoptysis, wheezing, dyspnea or shortness of breath CARDIOVASCULAR: Negative for chest pain, leg swelling, orthopnea, or palpitations GI: + Nausea : No history of dysuria, frequency or incontinence MUSCULOSKELETAL: Negative for joint pain or swelling. SKIN: Negative for lesions, rash, and itching ENDOCRINE: Negative for cold or heat i (more content not included)...[facility]05-16-2024 Telephone encounter Note* Telephone Encounter - Digna Chakraborty APRN.CNP - 02/24/2024 1:00 PM EDT The following approved medication requests have been transmitted electronically. Requested Prescriptions Pending Prescriptions Disp Refills FLUoxetine (PROZAC) 40 mg capsule 90 capsule 3 Sig: Take 1 capsule by mouth once daily. Digna Chakraborty APRN.CNP [facility]05-16-2024 Miscellaneous Notes* Telephone Encounter - Digna Chakraborty APRN.CNP - 02/24/2024 1:00 PM EDT The following approved medication requests have been transmitted electronically. Requested Prescriptions Pending Prescriptions Disp Refills FLUoxetine (PROZAC) 40 mg capsule 90 capsule 3 Sig: Take 1 capsule by mouth once daily. Digna Chakraborty APRN.CNP * Telephone Encounter - Rose Mary Castro - 02/23/2024 11:58 AM EDT Patient has been identified by name and date of : Yes, Provider Emilia Jacob MD Date 02/23/2024 Time 12:00 pm Patient phones for refill(s): Requested Prescriptions Pending Prescriptions Disp Refills FLUoxetine (PROZAC) 40 mg capsule 90 capsule 3 Sig: Take 1 capsule by mouth once daily. Date of last office visit in primary care: 12/28/2023 Date of next office visit in primary care: 06/29/2024 Please advise. Thank you. Rose Mary Casillas. [facility] Tele[facility] encounter Note * Telephone Encounter - Rose Mary Castro - 02/23/2024 11:58 AM EDT Patient has been identified by name and date of : Yes, Provider Emilia Jacob MD Date 02/23/2024 Time 12:00 pm Patient phones for refill(s): Requested Prescriptions Pending Prescriptions Disp Refills FLUoxetine (PROZAC) 40 mg capsule 90 capsule 3 Sig: Take 1 capsule by mouth once daily. Date of last office visit in primary care: 12/28/2023 Date of next office visit in primary care: 06/29/2024 Please advise. Thank you. Rose Mary Burnham [facility]. [facility]05-06-2024 Telephone encounter Note* Telephone Encounter - Raman Mckeon APRN.CNP - 02/14/2024 1:42 PM EDT The following approved medication requests have been transmitted electronically. Requested Prescriptions Pending Prescriptions Disp Refills pantoprazole DR (PROTONIX) 40 mg tablet 90 tablet 3 Sig: Take 1 tablet by mouth daily before breakfast. Take on empty stomach, 1/2 hr before meal. Raman Mckeon APRN.CNP [facility]05-06-2024 Miscellaneous Notes* Telephone Encounter - Raman Mckeon APRN.CNP - 02/14/2024 1:42 PM EDT The following approved medication requests have been transmitted electronically. Requested Prescriptions Pending Prescriptions Disp Refills pantoprazole DR (PROTONIX) 40 mg tablet 90 tablet 3 Sig: Take 1 tablet by mouth daily before breakfast. Take on empty stomach, 1/2 hr before meal. Raman Mckeon APRN.CNP * Telephone Encounter - Cherelle Sahu - 02/14/2024 11:43 AM EDT Patient has been identified by name and date of : Yes, Spouse phones for refill(s): Requested Prescriptions Pending Prescriptions Disp Refills pantoprazole DR (PROTONIX) 40 mg tablet 90 tablet 3 Sig: Take 1 tablet by mouth daily before breakfast. Take on empty stomach, 1/2 hr before meal. Date of last office visit in primary care: 12/28/2023 Date of next office visit in primary care: 06/29/2024 Please advise. Thank you. Cherelle Sahu. [facility] Telephone encounter Note * Telephone Encounter - Cherelle Sahu - 02/14/2024 11:43 AM EDT Patient has been identified by name and date of : Yes, Spouse phones for refill(s): Requested Prescriptions Pending Prescriptions Disp Refills pantoprazole DR (PROTONIX) 40 mg tablet 90 tablet 3 Sig: Take 1 tablet by mouth daily before breakfast. Take on empty stomach, 1/2 hr before meal. Date of last office visit in primary care: 12/28/2023 Date of next office visit in primary care: 06/29/2024 Please advise. Thank you. Cherelle Sahu. [facility]03-19-2024 Instructions* Patient Instructions* Heidy Singleton APRN.CNP - 12/28/2023 3:45 PM EDT Increase the ozempic dose to 0.5 mg weekly. Continue the same medication. Recheck in 6 months. [facility] in this [facility]24 NoteHNO ID: [id number] Author: HEIDY SINGLETON APRN.CNP Service: ? Author Type: Nurse Practitioner Type: Progress Notes Filed: 12/28/2023 16:21 Note Text: This is a 88 year old male who presents today with: Patient presents with: Recheck: 6 month follow up HISTORY OF PRESENT ILLNESS: Zachary Mcdermott is a 88 year old male. Patient presents with: Recheck: 6 month follow up HTN: Patient is compliant with meds Yes Monitors bp at home: No. Denies side effects: No. Chest pain: No. Dyspnea: with exertion. Edema: No. Palpitations: No. Syncope: No. Headache: No. Dizziness: not as a normal. Chronic anticoagulation: No abnormal s/s of blood. DM: Reports overall feeling well. Medication side effects: No. Home sugar checks: no Hypoglycemic spells: No. Watching diet: No. Unexpected weight loss: No. Polyuria, polydipsia: Yes. Some nocturia. Vision Changes: eye drops to reduce pressure. Foot lesions or numbness or pain: No. Recently changed from trulicity 1.5 mg to ozempic 0.25 mg d/t lack of availability of the ozempic. Mood: Taking prozac. Has some trouble with sleep. Gets anxiety/depression. Chondrosarcoma Follows with oncology. Unsure of plan at this time. PAST MEDICAL HISTORY: PAST MEDICAL HISTORY Diagnosis Date Actinic Damage//Sun-Damaged [...] Lumbago 10/14/2005 Pure hypercholesterolemia Unspecified essential hypertension PAST SURGICAL HISTORY Procedure Laterality Date COLONOSCOPY FLX DX W/COLLJ SPEC WHEN PFRMD 04/09/2009 PAST SURGICAL HISTORY OF lipoma, neck PAST SURGICAL HISTORY OF 06/11/1980 lumbar laminotomy REMOVAL GALLBLADDER 03/24/2022 ALLERGIES Penicillins MEDICATIONS Current Outpatient Medications Medication Sig FLUoxetine (PROZAC) 20 mg capsule Take 1 capsule by mouth once daily. Take along with 40 mg capsule lisinopril (ZESTRIL) 40 mg tablet Take 1 tablet by mouth once daily. semaglutide (OZEMPIC) 0.25 mg or 0.5 mg (2 mg/3 mL) pen Inject 0.5 mg subcutaneously one time a week. amLODIPine (NORVASC) 5 mg tablet Take 1 tablet by mouth once daily. alfuzosin SR (UROXATRAL) 10 mg 24 hr tablet Take 1 tablet by mouth once daily. atorvastatin (LIPITOR) 80 mg tablet Take 1 tablet by mouth once daily. apixaban (ELIQUIS) 2.5 mg tab(s) Take 1 tablet by mouth two times a day. dutasteride (AVODART) 0.5 mg capsule Take 1 capsule by mouth once daily. dulaglutide (TRULICITY) 1.5 mg/0.5 mL pen injector Inject 1.5 mg subcutaneously one time a week. Inject once per week. Discard Pen After FLUoxetine (PROZAC) 40 mg capsule take 1 capsule by mouth once daily ondansetron orally disintegrating (ZOFRAN ODT) 4 mg disintegrating tablet Take 1 tablet by mouth every 6 hours as needed for nausea/vomiting. pantoprazole DR (PROTONIX) 40 mg tablet Take 1 tablet by mouth daily before breakfast. Take on empty stomach, 1/2 hr before meal. glimepiride (AMARYL) 2 mg tablet Take 1 tablet by mouth daily with breakfast. doxycycline (VIBRA-TABS) 100 mg tablet Take 1 tablet by mouth twice daily. metFORMIN ER (GLUCOPHAGE XR) 500 mg 24 hr tablet Take 2 tablets by mouth with breakfast betamethasone dipropionate, augmented (DIPROLENE) 0.05 % cream Dr. Bridger Lomax. Apply as needed for eczema. multivitamin tablet Take 1 tablet by mouth once daily. No current facility-administered medications for this visit. FAMILY HISTORY Problem Relation Age of Onset other (Melanoma) Mother Diabetes Father lung cancer/chf/starvation Diabetes Sister Diabetes Paternal Grandfather Social History Tobacco Use Smoking status: Former Packs/day: 2.00 Years: 10.00 Additional pack years: 0.00 Total pack years: 20.00 Types: Cigarettes Quit date: 10/11/1969 Years since quittin.2 Smokeless tobacco: Never Vaping Use Vaping Use: Never used Substance Use Topics Alcohol use: Yes Comment: ocass EXAM: BP 108/82 Pulse 95 Resp 16 Wt 79.4 kg (175 lb) SpO2 97% BMI 26.61 kg/m? PHYSICAL EXAM: General Appearance: Well appearing, alert, in no acute distress, well-hydrated, well nourished.. Skin: Skin color, texture, turgor normal, no suspicious rashes or lesions. Head: Normocephalic, no masses, lesions, tenderness or abnormalities. Eyes: Anicteric sclera. Pupils are equally round and reactive to light. Extraocular movements are intact. . Lungs: Lungs clear to auscultation. No wheezing, rhonchi, rales.. Heart: RRR without murmur, (more content not included)...[facility]03-19-2024 History of Present illness Narrative* Heidy Singleton APRN.FIRE PATROLLER - 12/28/2023 3:00 PM EDT This is a 88 year old male who presents today with: Patient presents with: Recheck: 6 month follow up HISTORY OF PRESENT ILLNESS: Zachary Mcdermott is a 88 year old male. Patient presents with: Recheck: 6 month follow up HTN: Patient is compliant with meds Yes Monitors bp at home: No. Denies side effects: No. Chest pain: No. Dyspnea: with exertion. Edema: No. Palpitations: No. Syncope: No. Headache: No. Dizziness: not as a normal. Chronic anticoagulation: No abnormal s/s of blood. DM: Reports overall feeling well. Medication side effects: No. Home sugar checks: no Hypoglycemic spells: No. Watching diet: No. Unexpected weight loss: No. Polyuria, polydipsia: Yes. Some nocturia. Vision Changes: eye drops to reduce pressure. Foot lesions or numbness or pain: No. Recently changed from trulicity 1.5 mg to ozempic 0.25 mg d/t lack of availability of the ozempic. Mood: Taking prozac. Has some trouble with sleep. Gets anxiety/depression. Chondrosarcoma Follows with oncology. Unsure of plan at this time. PAST MEDICAL HISTORY: PAST MEDICAL HISTORY Diagnosis Date Actinic Damage//Sun-Damaged [...] nodules at L lung base-repeat 6 mo SPEPnegative in 04-18 HBsAg neg, Hep A positive, JUAN MIGUEL negative, HIV western blot negative in 04-18 Broken toe Hyperplasia of prostate Lumbago 10/14/2005 Pure hypercholesterolemia Unspecified essential hypertension PAST SURGICAL HISTORY Procedure Laterality Date COLONOSCOPY FLX DX W/COLLJ SPEC WHEN PFRMD 04/09/2009 PAST SURGICAL HISTORY OF lipoma, neck PAST SURGICAL HISTORY OF 06/11/1980 lumbar laminotomy REMOVAL GALLBLADDER 03/24/2022 ALLERGIES Penicillins MEDICATIONS Current Outpatient Medications Medication Sig FLUoxetine (PROZAC) 20 mg capsule Take 1 capsule by mouth once daily. Take along with 40 mg capsule lisinopril (ZESTRIL) 40 mg tablet Take 1 tablet by mouth once daily. semaglutide (OZEMPIC) 0.25 mg or 0.5 mg (2 mg/3 mL) pen Inject 0.5 mg subcutaneously one time a week. amLODIPine (NORVASC) 5 mg tablet Take 1 tablet by mouth once daily. alfuzosin SR (UROXATRAL) 10 mg 24 hr tablet Take 1 tablet by mouth once daily. atorvastatin (LIPITOR) 80 mg tablet Take 1 tablet by mouth once daily. apixaban (ELIQUIS) 2.5 mg tab(s) Take 1 tablet by mouth two times a day. dutasteride (AVODART) 0.5 mg capsule Take 1 capsule by mouth once daily. dulaglutide (TRULICITY) 1.5 mg/0.5 mL pen injector Inject 1.5 mg subcutaneously one time a week. Inject once per week. Discard Pen After FLUoxetine (PROZAC) 40 mg capsule take 1 capsule by mouth once daily ondansetron orally disintegrating (ZOFRAN ODT) 4 mg disintegrating tablet Take 1 tablet by mouth every 6 hours as needed for nausea/vomiting. pantoprazole DR (PROTONIX) 40 mg tablet Take 1 tablet by mouth daily before breakfast. Take on empty stomach, 1/2 hr before meal. glimepiride (AMARYL) 2 mg tablet Take 1 tablet by mouth daily with breakfast. doxycycline (VIBRA-TABS) 100 mg tablet Take 1 tablet by mouth twice daily. metFORMIN ER (GLUCOPHAGE XR) 500 mg 24 hr tablet Take 2 tablets by mouth with breakfast betamethasone dipropionate, augmented (DIPROLENE) 0.05 % cream Dr. Bridger Lomax. Apply as needed foreczema. multivitamin tablet Take 1 tablet by mouth once daily. No current facility-administered medications for this visit. FAMILY HISTORY Problem Relation Age of Onset other (Melanoma) Mother Diabetes Father lung cancer/chf/starvation Diabetes Sister Diabetes Paternal Grandfather Social History Tobacco Use Smoking status: Former Packs/day: 2.00 Years: 10.00 Additional pack years: 0.00 Total pack years: 20.00 Types: Cigarettes Quit date: 10/11/1969 Years since quittin.2 Smokeless tobacco: Never Vaping Use Vaping Use: Never used Substance Use Topics Alcohol use: Yes Comment: ocass EXAM: BP 108/82 Pulse 95 Resp 16 Wt 79.4 kg (175 lb) SpO2 97% BMI 26.61 kg/m PHYSICAL EXAM: General Appearance: Well appearing, alert, in no acute distress, well-hydrated, well nourished.. Skin: Skin color, texture, turgor normal, no suspicious rashes or lesions. Head: Normocephalic, no masses, lesions, tenderness or abnormalities. Eyes: Anicteric sclera. Pupils are equally round and reactive to light. Extraocular movements are intact. . Lungs: Lungs clear to auscultation. No wheezing, rhonchi, rales.. Heart: RRR without murmur, gallop, or rubs. No ectopy. Extremities: No deformities, edema, skin discoloration, clubbing or cyanosis. Good capillary refill. . Neurologic: Gait normal. ASSESSMENT/PLAN: 1. Type 2 diabetes mellitus without complication, without long-term current use of insulin (HCC) - ICD9: 250.00, ICD10: E11.9 (primary diagnosis) - Uncontrolled Only taking 0.25 mg of the ozempic. Advised to increase this to the 0.5 mg dose. Discussed diet and limiting sugars/carbs. Recheck in 6 months. 2. 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 3. Pure hypercholesterolemia - ICD9: 272.0, ICD10: E78.00 Controlled. Continue current medication. 4. 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) - ICD9: 296.22, ICD10: F32.1 Stable on current medication. 5. Atrial fibrillation, unspecified type (HCC) - ICD9: 427.31, ICD10: I48.91 Chronic anticoagulation. No abnormal s/s of bleeding. Continue per cardiology. 6. Essential hypertension, benign - ICD9: 401.1, ICD10: I10 - Controlled - Continue current medications - Recommend home blood pressure monitoring, to bring results to next visit - Encouraged sodium restriction, DASH or Mediterranean diet - Recommend regular aerobic exercise 7. Hyperlipidemia, unspecified hyperlipidemia type - ICD9: 272.4, ICD10: E78.5 - Controlled - Continue current medications - Counseled on healthy diet and regular exercise Discussed treatment plan and patient voices understanding. Patient's questions answered appropriately. Medications and potential side effects were discussed and patient voices understanding. Return to the office as scheduled or as needed for worsening/no improvement. Heidy Singleton APRN.FIRE PATROLLER documented in this encounterKe[facility]24 Miscellaneous Notes* Telephone Encounter - Emilia Jacob MD - 12/17/2023 3:11 PM EST OK to refill as ordered Emilia Jacob MD * Telephone Encounter - Amy Ugalde - 12/17/2023 2:41 PM EST Patient has been identified by name and date of : Patient phones for refill(s): Requested Prescriptions Pending Prescriptions Disp Refills FLUoxetine (PROZAC) 20 mg capsule 90 capsule 3 Sig: Take 1 capsule by mouth once daily. Take along with 40 mg capsule lisinopril (ZESTRIL) 40 mg tablet 90 tablet 3 Sig: Take 1 tablet by mouth once daily. Date of last office visit in primary care: 12/11/2023 Date of next office visit in primary care: Visit date not found Please advise. Thank you. Amy Ugalde. documented in this encounterKeenan [facility]03-02-[facility]24 History of Present illness Narrative* Emilia Jacob MD - 12/11/2023 11:00 AM EST Chief Complaint Patient presents with: Cough HPI Zachary Mcdermott is a 88 year old male who presents here today for an acute visit. Pt her today with his for an acute visit. Pt c/o a non productive cough, nasal drainage, dry mouth and sob with exertion. Reports this has been ongoing for a couple of weeks, lingering and not feeling well. At times will feel weak and very tired. Has been using Tylenol Extra Strength, no cold medication given to him. Did have a fall on 11/16/23 and suffered from a broken rib. Doing well with this, using pain medication at night only. No fevers. He did stop taking benadryl for his allergies. Past medical history, appointments, medications, allergies reviewed. [...] nodules at L lung base-repeat 6 mo SPEPnegative in 04-18 HBsAg neg, Hep A positive, [...] Paternal Grandfather Patient Allergies ALLERGIES Allergen Reactions Penicillins Current Medications Current Outpatient Medications on File Prior to Visit Medication Sig semaglutide (OZEMPIC) 0.25 mg or 0.5 mg (2 mg/3 mL) pen Inject 0.5 mg subcutaneously one time a week. amLODIPine (NORVASC) 5 mg tablet Take 1 tablet by mouth once daily. alfuzosin SR (UROXATRAL) 10 mg 24 hr tablet Take 1 tablet by mouth once daily. atorvastatin (LIPITOR) 80 mg tablet Take 1 tablet by mouth once daily. apixaban (ELIQUIS) 2.5 mg tab(s) Take 1 tablet by mouth two times a day. FLUoxetine (PROZAC) 20 mg capsule Take 1 capsule by mouth once daily. Take along with 40 mg capsule dutasteride (AVODART) 0.5 mg capsule Take 1 capsule by mouth once daily. dulaglutide (TRULICITY) 1.5 mg/0.5 mL pen injector Inject 1.5 mg subcutaneously one time a week. Inject once per week. Discard Pen After FLUoxetine (PROZAC) 40 mg capsule take 1 capsule by mouth once daily ondansetron orally disintegrating (ZOFRAN ODT) 4 mg disintegrating tablet Take 1 tablet by mouth every 6 hours as needed for nausea/vomiting. pantoprazole DR (PROTONIX) 40 mg tablet Take 1 tablet by mouth daily before breakfast. Take on empty stomach, 1/2 hr before meal. glimepiride (AMARYL) 2 mg tablet Take 1 tablet by mouth daily with breakfast. lisinopril (ZESTRIL, PRINIVIL) 40 mg tablet Take 1 tablet by mouth once daily. doxycycline (VIBRA-TABS) 100 mg tablet Take 1 tablet by mouth twice daily. metFORMIN ER (GLUCOPHAGE XR) 500 mg 24 hr tablet Take 2 tablets by mouth with breakfast betamethasone dipropionate, augmented (DIPROLENE) 0.05 % cream Dr. Bridger Lomax. Apply as needed foreczema. multivitamin tablet Take 1 tablet by mouth once daily. diphenhydrAMINE (BENADRYL) 25 mg capsule Take 1 capsule by mouth every 6 hours as needed. No current facility-administered medications on file prior to visit. Social History Social History Tobacco Use Smoking status: Former Packs/day: 2.00 Years: 10.00 Additional pack years: 0.00 Total pack years: 20.00 Types: Cigarettes Quit date: 10/11/1969 Years since quittin.2 Smokeless tobacco: Never Vaping Use Vaping Use: Never used Substance Use Topics Alcohol use: Yes Comment: ocass EXAM: BP 118/78 (BP Site: Left Arm, BP Position: Sitting, BP Cuff Size: Regular Adult) Pulse 96 Resp 18 Wt 81.2 kg (179 lb) SpO2 94% BMI 27.22 kg/m General Appearance: Well appearing, alert, in no acute distress, well-hydrated, well nourished.. Lungs: Lungs clear to auscultation. No wheezing, rhonchi, rales.. Heart: RRR without murmur, gallop, or rubs. No ectopy. Health Maintenance List Diabetic Foot Exam Never done RSV Vaccine(1 - 1-dose 60+ series) Never done Dilated Retinal Exam due on 07/06/2023 Advance Directive Discussion Never done HbA1C due on 12/24/2023 Urine Albumin:Creatinine Ratio due on 06/25/2024 LDL Cholesterol due on 06/25/2024 DTaP,Tdap,Td Vaccine(5 - Td or Tdap) due on 01/15/2031 Influenza Vaccine Completed Shingrix Vaccine Completed Covid-19 Vaccine Completed Pneumococcal Vaccine: 65+ Completed HPV Vaccine Aged Out Data reviewed None ASSESSMENT/PLAN: 1. Cough, unspecified type - ICD9: 786.2, ICD10: R05.9 (primary diagnosis) May be from allergies; try OTC once daily anti histamine 2. Essential hypertension, benign - ICD9: 401.1, ICD10: I10 - Controlled - Continue current medications - Recommend home blood pressure monitoring, to bring results to next visit - Encouraged sodium restriction, DASH or Mediterranean diet - Recommend regular aerobic exercise 3. Atrial fibrillation, unspecified type (HCC) - ICD9: 427.31, ICD10: I48.91 4. 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 Author Type: Physician Type: Progress Notes Filed: 12/11/2023 12:01 Note Text: Chief Complaint Patient presents with: Cough HPI Zachary Mcdermott is a 88 year old male who presents here today for an acute visit. Pt her today with his for an acute visit. Pt c/o a non productive cough, nasal drainage, dry mouth and sob with exertion. Reports this has been ongoing for a couple of weeks, lingering and not feeling well. At times will feel weak and very tired. Has been using Tylenol Extra Strength, no cold medication given to him. Did have a fall on 11/16/23 and suffered from a broken rib. Doing well with this, using pain medication at night only. No fevers. He did stop taking benadryl for his allergies. Past medical history, appointments, medications, allergies reviewed. [...] Paternal Grandfather Patient Allergies ALLERGIES Allergen Reactions Penicillins Current Medications Current Outpatient Medications on File Prior to Visit Medication Sig semaglutide (OZEMPIC) 0.25 mg or 0.5 mg (2 mg/3 mL) pen Inject 0.5 mg subcutaneously one time a week. amLODIPine (NORVASC) 5 mg tablet Take 1 tablet by mouth once daily. alfuzosin SR (UROXATRAL) 10 mg 24 hr tablet Take 1 tablet by mouth once daily. atorvastatin (LIPITOR) 80 mg tablet Take 1 tablet by mouth once daily. apixaban (ELIQUIS) 2.5 mg tab(s) Take 1 tablet by mouth two times a day. FLUoxetine (PROZAC) 20 mg capsule Take 1 capsule by mouth once daily. Take along with 40 mg capsule dutasteride (AVODART) 0.5 mg capsule Take 1 capsule by mouth once daily. dulaglutide (TRULICITY) 1.5 mg/0.5 mL pen injector Inject 1.5 mg subcutaneously one time a week. Inject once per week. Discard Pen After FLUoxetine (PROZAC) 40 mg capsule take 1 capsule by mouth once daily ondansetron orally disintegrating (ZOFRAN ODT) 4 mg disintegrating tablet Take 1 tablet by mouth every 6 hours as needed for nausea/vomiting. pantoprazole DR (PROTONIX) 40 mg tablet Take 1 tablet by mouth daily before breakfast. Take on empty stomach, 1/2 hr before meal. glimepiride (AMARYL) 2 mg tablet Take 1 tablet by mouth daily with breakfast. lisinopril (ZESTRIL, PRINIVIL) 40 mg tablet Take 1 tablet by mouth once daily. doxycycline (VIBRA-TABS) 100 mg tablet Take 1 [...] by mouth every 6 hours as needed. No current facility-administered medications on file prior to visit. Social History Social History Tobacco Use Smoking status: Former Packs/day: 2.00 Years: 10.00 Additional pack years: 0.00 Total pack years: 20.00 Types: Cigarettes Quit date: 10/11/1969 Years since quittin.2 Smokeless tobacco: Never Vaping Use Vaping Use: Never used Substance Use Topics Alcohol use: Yes Comment: ocass EXAM: BP 118/78 (BP Site: Left Arm, BP Position: Sitting, BP Cuff Size: Regular Adult) Pulse 96 Resp 18 Wt 81.2 kg (179 lb) SpO2 94% BMI 27.22 kg/m? General Appearance: Well appearing, alert, in no acute distress, well-hydrated, well nourished.. Lungs: Lungs clear to auscultation. No wheezing, rhonchi, rales.. Heart: RRR without murmur, gallop, or rubs. No ectopy. Health Maintenance List Diabetic Foot Exam Never done RSV Vaccine(1 - 1-dose 60+ series) Never done Dilated Retinal Exam due on 07/06/2023 Advance Directive Discussion Never done HbA1C due on 12/24/2023 Urine Albumin:Creatinine Ratio due on 06/25/2024 LDL Cholesterol due on 0 (more content not included)...[facility]02-19-2024 Miscellaneous Notes* Telephone Encounter - Carolyn Romero Ma - 11/29/2023 2:01 PM EST Spoke with Patti, pt took 1 dose of Ozempic. Carolyn Romero Ma * Telephone Encounter - Carolyn Romero Ma - 11/26/2023 3:30 PM EST Message left for pt to call back. Carolyn Romero Ma * Telephone Encounter - Emilia Jacob MD - 11/26/2023 3:28 PM EST He may try switching to Ozempic as ordered, if this is available Emilia Jacob MD * Telephone Encounter - Petra Penny MA - 11/24/2023 3:30 PM EST Phone call to patient, states that they have called multiple pharmacy's and the are all months out on backorder for Trulicity. Please advise. Petra Penny MA * Telephone Encounter - Cherelle Sahu - 11/24/2023 2:34 PM EST Patti is calling Emilia Jacob MD today with concern regarding Medication Problem: Trulicity is still out of stock. Asking for clinical to please call and advise on what to do. Patient has been identified by name and birthdate. Duration of symptoms: N/A Person calling: spouse: Patti Call patient at: at home [phone] (home) [phone] (cell) Was an appointment scheduled: No Closing statement: Results or non-symptom based questions: Thank you for [facility], your call will be returned within the next business day. Cherelle Sahu documented in this encounterKeenan [facility]02-15-2024 Miscellaneous Notes* Telephone Encounter - Emilia Jacob MD - 11/25/2023 9:37 AM EST OK to refill as ordered Emilia Jacob MD * Telephone Encounter - Rose Mary Castro - 11/17/2023 12:48 PM EST Patient has been identified by name and date of : Yes, Provider Emilia Jacob MD Date 11/17/2023 Time 12:51 pm Patient phones for refill(s): Requested Prescriptions Pending Prescriptions Disp Refills amLODIPine (NORVASC) 5 mg tablet 90 tablet 3 Sig: Take 1 tablet by mouth once daily. atorvastatin (LIPITOR) 80 mg tablet 90 tablet 3 Sig: Take 1 tablet by mouth once daily. Date of last office visit in primary care: 06/29/2023 Date of next office visit in primary care: 12/28/2023 Please advise. Thank you. Rose Mary Casillas. documented in this encounterKeenan [facility]02-09-2024 Instructions* Patient Instructions* Serina Garcia Ma - 11/19/2023 2:00 PM EST Pain medication for 1 week has been sent to [facility]. Can use Stool Softener to help withbowel movements since pain medication can cause constipation. Continue with Trulicity. documented in this encounterKeenan [facility]02-09-2024 History of Present illness Narrative* Emilia Jacob MD - 11/19/2023 1:40 PM EST Chief Complaint Patient presents with: Hospital Follow Up HPI Zachary Mcdermott is a 88 year old male who presents here today for a hospital follow up. Pt here today with for a [facility] ED follow up. Here today with his daughter, Maeve. Pt seen at [facility] ED on 11/16/23 after he fell on his rollator earlier that day. He started experiencingleft sided rib pain. Denies hitting his head or having LOC. X-rays were completed showing left 9th rib fx. Pt was d/c home with [place] 5-325 mg #12. Pt reports that he's still having a lot of pain, described as sharp. Notes that if he turns the wrong way this makes the sharp pain occur. Overall pain described as a deep ache. Does have some pain with taking deep breathing, but the [place] seems to help reduce this. Sleeping in his recliner. They are concerned due to having only 1 day left of pain medication and they don't think his pain is goingto improve significantly in 1 day. Currently using [place] 5-325 mg 1 tab po every 6 hours, which does seem to keep him comfortable. States he's not had a BM since being on pain medication. When initially going into the ED he was having a lot of pain with every breath. DM - Daughter states that her Mother wanted to let office know that Pharmacies are unable to get Trulicity medication and want to discuss other options. Chief Complaint: Fall Narrative: 88-year-old male with left rib pain. Patient states he fell on his rollator earlier. Initially thought he hurt his left elbow and his left knee but he states he is not hurting anymore. He states he noted that his left ribs startedhurting and now hurt worse in his elbow and his knee. Patient is ambul atory with his rollator. Did not hit his head or lose consciousness. He took nothingfor pain prior to arrival. Medical decision making narrative: Patient presenting with left rib pain. States initially hurt his left elbow andleft knee but these do not hurt him anymore. Is able to range them without any difficulty. He does not want these evaluated. Left ribs are tender to palpation. No bruising or crepitance. Equal symmetric breath sounds or chest wall rise. Patient was given a Lidoderm patch and Tylenol. Left rib series wasobtained and shows ninth rib fracture on my interpretation. There is no pneumothorax or pneumonia. Radiology interprets and agrees. Patient will be given [place] for pain. Return precautions are discussed. Discharged in dose in his care hydrocodone-acetaminophen 5-325 mg tablet 1 tab PO Q6H PRN PRN (Reason: Pain) 3 Days Qty: 12 0RF RAD/Ribs Uni Min 3V w/PA Chest IMPRESSION: RIBS: Left ninth rib fracture. No pneumothorax. CHEST: Left ninth rib fracture. No pneumothorax. Electronically Signed: Fabiano Mar MD at 20:29 EST Past medical history, appointments, medications, allergies reviewed. [...] nodules at L lung base-repeat 6 mo SPEPnegative in 04-18 HBsAg neg, Hep A positive, [...] Paternal Grandfather Patient Allergies ALLERGIES Allergen Reactions Penicillins Current Medications Current Outpatient Medications on File Prior to Visit Medication Sig apixaban (ELIQUIS) 2.5 mg tab(s) Take 1 tablet by mouth two times a day. FLUoxetine (PROZAC) 20 mg capsule Take 1 capsule by mouth once daily. Take along with 40 mg capsule dutasteride (AVODART) 0.5 mg capsule Take 1 capsule by mouth once daily. dulaglutide (TRULICITY) 1.5 mg/0.5 mL pen injector Inject 1.5 mg subcutaneously one time a week. Inject once per week. Discard Pen After FLUoxetine (PROZAC) 40 mg capsule take 1 capsule by mouth once daily ondansetron orally disintegrating (ZOFRAN ODT) 4 mg [...] cream Dr. Bridger Lomax. Apply as needed foreczema. multivitamin tablet Take 1 tablet by mouth once daily. diphenhydrAMINE (BENADRYL) 25 mg capsule Take 1 capsule by mouth every 6 hours as needed. No current facility-administered medications on file prior to visit. Social History Social History Tobacco Use Smoking status: Former Packs/day: 2.00 Years: 10.00 Additional pack years: 0.00 Total pack years: 20.00 Types: Cigarettes Quit date: 10/11/1969 Years since quittin.1 Smokeless tobacco: Never Vaping Use Vaping Use: Never used Substance Use Topics Alcohol use: Yes Comment: ocass EXAM: BP 118/70 (BP Site: Right Arm, BP Position: Sitting, BP Cuff Size: Regular Adult) Pulse 80 Resp18 General Appearance: Well appearing, alert, in no acute distress, well-hydrated, well nourished. andin rollator. Lungs: Lungs clear to auscultation. No wheezing, rhonchi, rales.. Heart: RRR without murmur, gallop, or rubs. No ectopy. Musculoskeletal: Tenderness to palpitate left side rib area. Nothing abnormal felt on exam Health Maintenance List Diabetic Foot Exam Never done RSV Vaccine(1 - 1-dose 60+ series) Never done Dilated Retinal Exam due on 07/06/2023 Advance Directive Discussion Never done HbA1C due on 12/24/2023 Urine Albumin:Creatinine Ratio due on 06/25/2024 LDL Cholesterol due on 06/25/2024 DTaP,Tdap,Td Vaccine(5 - Td or Tdap) due on 01/15/2031 Influenza Vaccine Completed Shingrix Vaccine Completed Covid-19 Vaccine Completed Pneumococcal Vaccine: 65+ Completed Data reviewed Epic - scanned documents ASSESSMENT/PLAN: 1. Hospital discharge follow-up - ICD9: V67.59, ICD10: Z09 (primary diagnosis) - Stable today 2. Closed fracture of one rib of left side, sequela - ICD9: 905.1, ICD10: S22.32XS - Rx for 1 week of [place] today - Discussed using Stool Softener 3. Type 2 diabetes mellitus without complication, without long-term current use of insulin (HCC) - ICD9: 250.00, ICD10: E11.9 - discussed continuing Trulicity Follow up as needed. I agree with the Chief Complaint, ROS, and Past Histories independently gathered by the clinical desktop support manager and the remaining scribed note accurately describes my personal service to the patient. Medical Decision Making: Problems: Low: Acute, uncomplicated illness or injury Risk: Moderate: Drug management Medical Decision Making Level: 3 - Low Emilia Jacob MD The documentation for this note was completed by Serina Garcia Ma acting as scribe for Emilia Jacob MD. November 19, 2023 1:59 PM. Serina Garcia Ma documented in this encounterKeenan [facility] Hospital02-09-2024 NoteHNO ID: [id number] Author: EMILIA JACOB MD Service: ? Author Type: Physician Type: Progress Notes Filed: 11/19/2023 14:03 Note Text: Chief Complaint Patient presents with: Hospital Follow Up HPI Zachary Mcdermott is a 88 year old male who presents here today for a hospital follow up. Pt here today with for a [facility] ED follow up. Here today with his daughter, Maeve. Pt seen at [facility] ED on 11/16/23 after he fell on his rollator earlier that day. He started experiencing left sided rib pain. Denies hitting his head or having LOC. X-rays were completed showing left 9th rib fx. Pt was d/c home with [place] 5-325 mg #12. Pt reports that he's still having a lot of pain, described as sharp. Notes that if he turns the wrong way this makes the sharp pain occur. Overall pain described as a deep ache. Does have some pain with taking deep breathing, but the [place] seems to help reduce this. Sleeping in his recliner. They are concerned due to having only 1 day left of pain medication and they don't think his pain is going to improve significantly in 1 day. Currently using [place] 5-325 mg 1 tab po every 6 hours, which does seem to keep him comfortable. States he's not had a BM since being on pain medication. When initially going into the ED he was having a lot of pain with every breath. DM - Daughter states that her Mother wanted to let office know that Pharmacies are unable to get Trulicity medication and want to discuss other options. Chief Complaint: Fall Narrative: 88-year-old male with left rib pain. Patient states he fell on his rollator earlier. Initially thought he hurt his left elbow and his left knee but he states he is not hurting anymore. He states he noted that his left ribs startedhurting and now hurt worse in his elbow and his knee. Patient is ambulatory with his rollator. Did not hit his head or lose consciousness. He took nothingfor pain prior to arrival. Medical decision making narrative: Patient presenting with left rib pain. States initially hurt his left elbow andleft knee but these do not hurt him anymore. Is able to range them without any difficulty. He does not want these evaluated. Left ribs are tender to palpation. No bruising or crepitance. Equal symmetric breath sounds or chest wall rise. Patient was given a Lidoderm patch and Tylenol. Left rib series wasobtained and shows ninth rib fracture on my interpretation. There is no pneumothorax or pneumonia. Radiology interprets and agrees. Patient will be given [place] for pain. Return precautions are discussed. Discharged in dose in his care hydrocodone-acetaminophen 5-325 mg tablet 1 tab PO Q6H PRN PRN (Reason: Pain) 3 Days Qty: 12 0RF RAD/Ribs Uni Min 3V w/PA Chest IMPRESSION: RIBS: Left ninth rib fracture. No pneumothorax. CHEST: Left ninth rib fracture. No pneumothorax. Electronically Signed: Fabiano Mar MD at 20:29 EST Past medical history, appointments, medications, allergies reviewed. [...] Paternal Grandfather Patient Allergies ALLERGIES Allergen Reactions Penicillins Current Medications Current Outpatient Medications on File Prior to Visit Medication Sig apixaban (ELIQUIS) 2.5 mg tab(s) Take 1 tablet by mouth two times a day. FLUoxetine (PROZAC) 20 mg capsule Take 1 capsule by mouth once daily. Take along with 40 mg capsule dutasteride (AVODART) 0.5 mg capsule Take 1 capsule by mouth once daily. dulaglutide (TRULICITY) 1.5 mg/0.5 mL pen injector Inject 1.5 mg subcutaneously one time a week. Inject once per week. Discard Pen After FLUoxetine (PROZAC) 40 mg capsule take 1 capsule by mouth once daily ondansetron orally disintegrating (ZOFRAN ODT) 4 mg disintegrating tablet Take 1 tablet by mouth every 6 hours as needed for nausea/vomiting. [place] (more content not included)...[facility]02-06-2024 Discharge summary Author Herson Acuña [facility] November 16, 2023 8:52pm Note Date/Time November 16, 2023 8 :52pm [facility] Medical Records Department [address] [place] [place] [id number] Emergency Department Summary 11/16/23 MR#: [id number] Acct: [id number] Name: ZACHARY MCDERMOTT Chandana Rep #:[id number] : 1935 88 From: Herson Acuña DO PCP: Dr. Emilia Jacob MD Status:RE G ER Location: ED HPI HPI - Fall History of Present Illness Chief Complaint: Fall Narrative Narrative: 88-year-old male with left rib pain. Patient states he fell on his rollator earlier. Initially thought he hurt his left elbow and his left knee but he states he is not hurting anymore. He states he noted that his left ribs startedhurting and now hurt worse in his elbow and his knee. Patient is ambulatory with his rollator. Did not hit his head or lose consciousness. He took nothingfor pain prior to arrival. 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) Hypertension Left arm weakness Loss of peripheral visual field PAF (paroxysmal atrial fibrillation) Walker as ambulation aid Wears glasses Wears hearing aid Home Medications alfuzosin 10 mg tablet,extended release 24 hr 10 mg PO DAILY prostate 10/02/20 [History Last Taken 03/20/22] amlodipine 5 mg tablet 5 mg PO DAILY BP 03/15/21 [History Last Taken 03/20/22] atorvastatin 80 mg tablet 80 mg PO QHS 03/15/21 [History Last Taken 03/20/22] lisinopril 40 mg tablet 40 mg PO DAILY BP 03/15/21 [History Last Taken 03/20/22] cetirizine 10 mg capsule (Zyrtec) 10 mg PO DAILY PRN ALLERGIES 03/18/21 [History Last Taken 03/20/22] dutasteride 0.5 mg capsule 0.5 mg PO DAILY 03/18/21 [History Last Taken 03/20/22] multivitamin 1 tab PO DAILY 03/18/21 [History Last Taken 03/20/22] dulaglutide 1.5 mg/0.5 mL subcutaneous pen injector (Trulicity) 1.5 mg subcut QWEEK 11/17/22 [History Last Taken Unknown] fluoxetine 20 mg capsule 40 mg PO DAILY 11/17/22 [History Last Taken Unknown] glimepiride 2 mg tablet tablet PO 11/17/22 [History Last Taken Unknown] pantoprazole 40 mg tablet,delayed release 40 mg PO DAILY 11/17/22 [History Last Taken Unknown] apixaban 2.5 mg tablet (Eliquis) 2.5 mg PO BID Please reduce dose to 2.5 mg twice daily #60 tabs 05/18/23 [Rx Last Taken Unknown] ondansetron 4 mg disintegrating tablet mg translingual TID PRN 05/18/23 [History Last Taken Unknown] fluoxetine 40 mg capsule (Prozac) 40 mg PO DAILY 10/25/23 [History Last Taken Unknown] hydrocodone-acetaminophen 5-325mg 5mg-325mg 1 tab PO Q6H PRN PRN Pain 3 days #12TABLETS 11/16/23 [Rx Last Taken Unknown] Allergy/AdvReac Type Severity Reaction Status Date / Time lactic acid [From Lac-Hydrin] Allergy Rash Verified 11/16/23 16:35 Penicillins Allergy Unknown Verified 11/16/23 16:35 Family History Sister Ovarian cancer Diabetes old age onset Mother Basal cell carcinoma Father CHF (congestive heart failure) Diabetes old age onset Grandfather Diabetes old age onset Surgical History H/O basal cell carcinoma excision History of shoulder surgery Status post laparoscopic cholecystectomy Social History household members: spouse current occupational exposures/hazards: No Smoking Status: Former smoker pack-years: 20 Tobacco: How many years used: 20 how long ago did patient quit smokin years ago; quit sometime in the s alcohol intake: current alcohol intake frequency: holidays/special occasions only substance use type: does not use caffeine: Yes (Occasionally, drinks mostly caffeine free beverages) ROS ROS ED Constitutional Constitutional ED: Denies chills, fever(s) or sweats Eyes Eyes: Denies blurry vision or change in vision ENT ENT ED: Denies ear pain or sore throat Cardiovascular Cardiovascular: Denies chest pain, palpitations or racing heartbeat Respiratory/Chest Respiratory/Chest: Reports other Details: Left rib pain ; Denies cough, dyspnea or sputum Gastrointestinal Gastrointestinal: Denies abdominal pain, constipation, diarrhea, nausea or vomiting Genitourinary Genitourinary ED: Denies dysuria, hematuria or urinary frequency Musculoskeletal Musculoskeletal: Denies arthralgias, myalgias or neck pain Integumentary Denies abscess, Abrasions or rash Neurologic Neurologic: Denies headache(s), paresthesias or weakness Psychiatric Psychiatric: Denies anxiety, depression, suicidal ideation or suicidal thoughts Endocrine Endocrinology: Denies polydipsia or polyuria EXAM Physical Exam Const Vital Signs: 11/16/23 16:32 11/16/23 18:25 Temperature 97.4 F L Temperature Source Temporal Pulse Rate 87 Respiratory Rate 20 H Respiratory Effort Normal Respiratory Depth Normal Respiratory Pattern Normal Blood Pressure 156/90 H Blood Pressure Mean 112 Pulse Ox 93 Oxygen Delivery Method Room Air Room Air Positive well nourished General Appearance ED: NAD HEENT Reports normocephalic atraumatic Eyes PERRL and EOMs intact bilaterally Neck full ROM Chest Wall Chest Narrative: Tenderness to palpation over left ribs approximately ribs 8 and 9 in the anterior axillary line and mid axillary line. No bruising, crepitance. Equal symmetric breath sounds or chest wall rise. Resp normal respiratory effort Auscultation: Negative for rales, rhonchi or wheezes Cardio regular rate and regular rhythm GI non-tender Neuro oriented x3 and CN's II-XII intact bilaterally Psych mental status grossly normal MDM MDM MDM Narrative Medical decision making narrative: Patient presenting with left rib pain. States initially hurt his left elbow andleft knee but these do not hurt him anymore. Is able to range them without any difficulty. He does not want these evaluated. Left ribs are tender to palpation. No bruising or crepitance. Equal symmetric breath sounds or chest wall rise. Patient was given a Lidoderm patch and Tylenol. Left rib series wasobtained and shows ninth rib fracture on my interpretation. There is no pneumothorax or pneumonia. Radiology interprets and agrees. Patient will be given [place] for pain. Return precautions are discussed. Discharged in dose in his care. Impression: 1. Mechanical fall 2. Left ninth rib fracture Lab Data Attestation: I reviewed the patient's lab results. Radiography Diagnostic Testing: Clinical Impression(s) from Imaging Studies Ribs w/Chest X-Ray 11/16/23 18:50 IMPRESSION: RIBS: Left ninth rib fracture. No pneumothorax. CHEST: Left ninth rib fracture. No pneumothorax. Electronically Signed: Fabiano Mar MD at 20:29 EST , Discharge Plan Triage Chief Complaint: Fall ED Provider: Herson Acuña Dx/Rx/DC Orders Instructions: ED Rib Fracture, ED Fall Prevention Prescriptions: New hydrocodone-acetaminophen 5-325 mg tablet 1 tab PO Q6H PRN PRN (Reason: Pain) 3 Days Qty: 12 0RF No Action lisinopril 40 mg tablet 40 mg PO DAILY amlodipine 5 mg tablet 5 mg PO DAILY atorvastatin 80 mg tablet 80 mg PO QHS dutasteride 0.5 mg capsule 0.5 mg PO DAILY Patient Comments: take 1 capsule by mouth once daily multivitamin Tablet 1 tab PO DAILY Zyrtec 10 mg capsule 10 mg PO DAILY PRN (Reason: ALLERGIES) fluoxetine 20 mg capsule 40 mg PO DAILY Rx Instructions: Take with 40 mg cap to = 60 mg daily glimepiride 2 mg tablet PO Trulicity 1.5 mg/0.5 mL pen injector 1.5 mg subcut QWEEK pantoprazole 40 mg tablet,delayed release (DR/EC) 40 mg PO DAILY Eliquis 2.5 mg tablet 2.5 mg PO BID Qty: 60 11RF ondansetron 4 mg tablet,disintegrating translingual TID PRN Patient Comments: take 1 tablet by mouth every 6 hours if needed for nausea and vomiting fluoxetine [Prozac] 40 mg capsule 40 mg PO DAILY alfuzosin 10 MG tablet extended release 24 hr 10 mg PO DAILY Primary Care Provider: Emilia Jacob Referrals: Emilia Jacob MD [Primary Care Provider] - Disposition Disposition: Home, Self Care What to do if you have Problems For any increased pain, shortness of breath, bleeding, nausea or vomiting, chestpain, or any unexpected problems, contact your Primary Care Provider. Call [facility] ([phone]) or report to the closest Emergency Room. Call 911 if necessary. 11/16/232051 <Electronically signed by Herson Acuña DO> Cosigner Signature (if applicable): CC: Dr. Emilia Jacob MD ~ Signed [facility] Work Phone: 1(830) 837-669912-07-2023 Miscellaneous Notes* Telephone Encounter - Emilia Jacob MD - 09/16/2023 2:46 PM EST OK to refill as ordered Emilia Jacob MD * Telephone Encounter - Petra Stein - 09/16/2023 10:38 AM EST Patient has been identified by name and date of : Yes Requested Prescriptions Pending Prescriptions Disp Refills FLUoxetine (PROZAC) 20 mg capsule 90 capsule 1 Sig: Take 1 capsule by mouth once daily. Take along with 40 mg capsule RX INSTRUCTIONS: Patient aware RX will be sent to pharmacy. No need to notify patient. Petra Aldridge documented in this encounterKeenan [facility]11-20-2023 Miscellaneous Notes* Telephone Encounter - Raman Mckeon APRN.CNP - 08/30/2023 12:06 PM EST The following approved medication requests have been transmitted electronically. Requested Prescriptions Pending Prescriptions Disp Refills dutasteride (AVODART) 0.5 mg capsule 90 capsule 3 Sig: Take 1 capsule by mouth once daily. Raman Mckeon APRN.CNP * Telephone Encounter - Shelby Xavier - 08/30/2023 10:13 AM EST Patient has been identified by name and date of : Yes Requested Prescriptions Pending Prescriptions Disp Refills dutasteride (AVODART) 0.5 mg capsule Sig: Take 1 capsule by mouth once daily. RX INSTRUCTIONS: Patient aware RX will be sent to pharmacy. No need to notify patient. Shelby Xavier documented in this encounterKeenan Private Hospital11-10-2023 Miscellaneous Notes* Telephone Encounter - Olga Gimenez LPN - 08/20/2023 8:30 AM EST Patient notified.Olga Gimenez LPN * Telephone Encounter - Katheryn Lora APRN.CNP - 08/20/2023 7:15 AM EST Please notify of negative rsv, flu, and covid test. Continue comfort measures for symptoms as you would for a cold. Any worsening symptoms follow up with PCP or ER. Katheryn Lora APRN.CNP documented in this encounterKeenan Private Hospital11-09-2023 Instructions* Patient Instructions* Katheryn Lora APRN.CNP - 08/19/2023 11:42 AM EST Covid, rsv, and influenza test ordered You will be notified in 12-24 hours, results available on [facility] Home isolation until results are back Rest, [...] breath, inability to swallow. documented in this encounterKeenan Private Hospital11-09-2023 NoteHNO ID: [id number] Author: Katheryn Lora APRN.CNP Service: ? Author Type: Nurse Practitioner Type: Progress Notes Filed: 08/19/2023 11:45 AM Note Text: Subjective The history is provided by the patient. No speech language specialist was used. HPI Zachary Mcdermott is a 87 year old male [...] have confirmed and edited as necessary, the [facility] Review of Systems Constitutional: Positive for [...] with results, available on mychart - COVID AND INFLUENZA A/B AND RSV NAAT, ROUTINE Diagnosis and treatment plan were discussed and questions were answered to the patient's satisfaction. Pt acknowledged understanding of concepts and follow up plan. Specific signs and symptoms that would indicate the need for higher level of care were discussed in detail warranting prompt ER evaluation. Katheryn Lora APRN.[facility]AD[facility]11-09-2023 History of Present illness Narrative* Katheryn Lora APRN.AIDA - 08/19/2023 11:31 AM EST Subjective The history is provided by the patient. No speech language specialist was used. HPI Zachary Mcdermott is a 87 year old male who presents today for CC of cough, congestion, sore throat for 2 days. He was on a cruise last week. He has used mucinex. Vaccinated for covid BP 121/79 Pulse 106 Temp 36.9 C (98.5 F) Resp 18 Wt 82.6 kg (182 lb) SpO2 94% BMI 27.67kg/m Social History Tobacco Use Smoking status: Former [...] nodules at L lung base-repeat 6 mo SPEPnegative in 04-18 HBsAg neg, Hep A positive, JUAN MIGUEL negative, HIV western blot negative in 04-18 Broken toe Hyperplasia of prostate Lumbago 10/14/2005 Pure hypercholesterolemia Unspecified essential hypertension I have confirmed and edited as necessary, the [facility] Review of Systems Constitutional: Positive for [...] for higher level of care were discussed indetail warranting prompt ER evaluation. Katheryn Lora APRN.FIRE PATROLLER documented in this encounterKeenan Private Hospital09-19-2023 History of Present illness Narrative* Emilia Jacob MD - 06/29/2023 3:00 PM EDT Chief Complaint Follow up HPI Zachary Mcdermott is a 87 year old male [...] BID. Pt followed with Dr. Rick at [facility] due to a mass on his chest. 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 Plan is due to pt age and co-morbidities he was not a radical extensive surgical resection. Refer to radiation oncology consultation. Refer to palliative medicine for tumor type pain. He was given ativan to help with sleep.They currentlyhave an appt with Radiation Oncology tomorrow at [facility] to discuss. Past medical history, appointments, [...] nodules at L lung base-repeat 6 mo SPEPnegative in 04-18 HBsAg neg, Hep A positive, [...] cream Dr. Bridger Lomax. Apply as needed foreczema. multivitamin tablet Take 1 tablet by mouth [...] Decision Making Level: 4 - Moderate Emilia Jacob MD documented in this encounterKeenan Private Hospital09-19-2023 NoteHNO ID: [id number] Author: Emilia Jacob MD Service: ? Author Type: Physician Type: Progress Notes Filed: 06/29/2023 6:03 PM Note Text: Chief Complaint Follow up HPI Zachary Mcdermott is a 87 year old male who presents here today for 6 month follow up. Went on river cruise in [place], going on [place] cruise next month. No bowel, Gi, or [...] BID. Pt followed with Dr. Rick at [facility] due to a mass on his [...] an appt with Radiation Oncology tomorrow at [facility] to discuss. Past medical history, appointments, [...] Lungs clear to ausc (more content not included)...[facility]08-28-[facility] Miscellaneous Notes* Telephone Encounter - Carolyn Romero Ma - 06/07/2023 4:21 PM EDT Pt notified and voiced understanding. Carolyn Nick Fuentes * Telephone Encounter - Emilia Jacob MD - 06/07/2023 3:03 PM EDT OK to refill as ordered He should be on the 1.5 mg dose Emilia Jacob MD * Telephone Encounter - Cherelle Sahu - 06/07/2023 10:41 AM EDT Please verify the mg as patient's was [...] the pharmacy. Cherelle Sahu documented in this encounterKeenan Private Hospital06-14-2023 Miscellaneous Notes* Telephone Encounter - Digna Chakraborty APRN.CNP - 03/24/2023 11:29 AM EDT The following approved medication requests have been transmitted electronically. Requested Prescriptions Signed Prescriptions Disp Refills FLUoxetine (PROZAC) 20 mg capsule 90 capsule 1 Sig: Take 1 capsule by mouth once daily. Take along with 40 mg capsule Authorizing Provider: DIGNA CHAKRABORTY APRN.CNP * Telephone Encounter - Fina Wen Ma - 03/24/2023 10:10 AM EDT Please send rx Fina Wen Ma * Telephone Encounter - Brenda Levi - 03/24/2023 10:04 AM EDT Patients is calling and needs patients medication renew as the pharmacy wont refill it. It's the 20 mg Prozac. Please call patients spouse and advise documented in this encounterKeenan Private Hospital04-27-2023 Miscellaneous Notes* Telephone Encounter - Radha Mackay LPN - 02/04/2023 4:10 PM EDT notified. Radha Mackay LPN * Telephone Encounter - Carolyn Romero Ma - 02/04/2023 11:53 AM EDT Message left for pt to call back. Carolyn Romero Ma * Telephone Encounter - Emilia Jacob MD - 02/04/2023 11:50 AM EDT I would suggest Tylenol for pain as needed; may use heat or ice also Emilia Jacob MD * Telephone Encounter - Fina Wen Ma - 02/03/2023 4:48 PM EDT ER records scanned in 01/29 Fina Wen Ma * Telephone Encounter - Maci Aldridge - 02/03/2023 4:41 PM EDT Patti is calling on behalf of Mark. Mark fell about a week ago and injured his back. He was seen at the [facility] ER. Patti would like to know what Mark can do for the pain. I do have him scheduled for an appointment for a follow up. Also, Patti said the cancer doctor at [facility] also detected a sarcoma on Mark's chest. She described as a slow tumor. She wanted Dr. Jacob to be aware. documented in this encounterKeenan Private Hospital04-26-2023 Miscellaneous Notes* Telephone Encounter - Digna Chakraborty APRN.CNP - 02/03/2023 5:41 PM EDT The following approved medication requests have been transmitted electronically. Requested Prescriptions Pending Prescriptions Disp Refills FLUoxetine (PROZAC) 40 mg capsule 30 capsule 5 Sig: Take 1 capsule by mouth once daily. Digna Chakraborty APRN.CNP * Telephone Encounter - Maci Aldridge - 02/03/2023 4:36 PM EDT Pharmacy verified in [facility] Patient has been identified by name [...] advise. Maci Robison Pss documented in this encounterKeenan Private Hospital03-20-2023 Miscellaneous Notes* Telephone Encounter - Raman Mckeon APRN.CNP - 12/28/2022 10:22 AM EDT The following approved medication requests have been transmitted electronically. Requested Prescriptions Pending Prescriptions Disp Refills pantoprazole DR (PROTONIX) 40 mg tablet 90 tablet 3 Sig: Take 1 tablet by mouth daily before breakfast. Take on empty stomach, 1/2 hr before meal. Raman Mckeon APRN.CNP * Telephone Encounter - Nolvia Aldridge - 12/28/2022 10:07 AM EDT Patient has been identified by name and [...] patient. Nolvia Virgen Pss documented in this encounterKeenan Private Hospital03-02-2023 History of Present illness Narrative* Emilia Jacob MD - 12/10/2022 2:00 PM EST Chief Complaint Patient presents with: F/U 3 Month HPI Zachary Mcdermott is a 87 year old male who presents here today for 3 month follow up. Pt no showed appt 11/17/22. Here with his . Has an advanced directive. Cough has improved. No bowel, Gi, or urinary issues. Has seen Urologist at [facility] Dr. Cee. Taking Avodart 0.5 mg daily and Uroxatral 10 mg daily. Uses Viagra prn ED. CVA/Lipid: Tries to watch diet and exercise with walking at the [employer]. His friend will take him or their [...] Echo done 11/25/22. Is going to be seeingDr. Edgar Nugyen to evaluate the lump on the chest. [...] nodules at L lung base-repeat 6 mo SPEPnegative in 04-18 HBsAg neg, Hep A positive, [...] cream Dr. Bridger Lomax. Apply as needed foreczema. apixaban (ELIQUIS) 5 mg tab(s) Take 1 [...] Past Histories independently gathered by the clinical desktop support manager and the remaining scribed note accurately describes my personal service to the patient. Medical Decision Making: Problems: Moderate: 2+ stable chronic illnesses Data: Unique test result(s) reviewed: 3+ Unique test(s) ordered: 3+ Risk: Moderate: Drug management Medical Decision Making Level: 4 - Moderate Emilia Jacob MD The documentation for this note was completed by Carolyn Romero Ma acting as scribe for Emilia Jacob MD. December 10, 2022 2:08 PM. Carolyn Romero Ma documented in this encounterKeenan Private Hospital01-30-2023 History of Present illness Narrative* Emilia Jacob MD - 11/09/2022 3:20 PM EST Chief Complaint Patient presents with: Cough HPI Zachary Mcdermott is a 87 year old male who presents here today for Cough. Here today with his for an acute visit. seen her Doctor this morning due to being ill. Was sent for x-ray, but have not heard back on those results. Pt c/o cough, chest congestion, sinus congestion and headache that started a couple weeks ago before they left for [place] to see family. Thought he caught this from his neighbor at [facility]. Pt has nasal drainage that ranges from Clear-yellow to green phlegm from his nose. He does cough up clear colored sputum. Does get sob with activity, has to take breaks. No fever, but he feels warm inside. Pt has taken OTC Mucinex, [place], Robitussin and Tylenol with no real improvement. [...] nodules at L lung base-repeat 6 mo SPEPnegative in 04-18 HBsAg neg, Hep A positive, [...] cream Dr. Bridger Lomax. Apply as needed foreczema. apixaban (ELIQUIS) 5 mg tab(s) Take 1 [...] BP Cuff Size: Regular Adult) Pulse 102 Temp36.7 C (98.1 F) (Tympanic) Resp 18 Wt [...] Past Histories independently gathered by the clinical desktop support manager and the remaining scribed note accurately describes my personal service to the patient. Medical Decision Making: Problems: Low: Acute, uncomplicated illness or injury Risk: Moderate: Drug management Medical Decision Making Level: 3 - Low Emilia Jacob MD The documentation for this note was completed by Serina Garcia Ma acting as scribe for Emilia Jacob MD. November 09, 2022 3:41 PM. Serina Garcia Ma documented in this encounterKeenan Private Hospital01-30-2023 Miscellaneous Notes* Telephone Encounter - Emilia Jacob MD - 11/09/2022 12:46 PM EST OK to refill as ordered Emilia Jacob MD documented in this encounterKeenan Private Hospital08-23-2022 History of Present illness Narrative* Emilia Jacob MD - 06/02/2022 9:00 AM EDT Chief Complaint Patient presents with: F/U 3 Month HPI Zachary Mcdermott is a 86 year old male [...] At this time pt unsure how he's doing. feels that he's recovered and doing well [...] neuropathy symptoms. Has routine eye exams at [facility]. On current regimen of Metformin [...] walker. Does have an exercise room at [employer] [facility] [facility], but its not like the [facility]. On current regimen of Lipitor 80 mg [...] he's woke up dry in a week. HM - Has Adv Dir/Living Will on file. [...] nodules at L lung base-repeat 6 mo SPEPnegative in 04-18 HBsAg neg, Hep A positive, [...] cream Dr. Bridger Lomax. Apply as needed foreczema. apixaban (ELIQUIS) 5 mg tab(s) Take 1 [...] Past Histories independently gathered by the clinical desktop support manager and the remaining scribed note accurately describes my personal service to the patient. Medical Decision Making: Problems: Moderate: 2+ stable chronic illnesses and 1+ chronic illnesses with change Data: Unique test(s) ordered: 3+ Risk: Moderate: Drug management Medical Decision Making Level: 4 - Moderate Emilia Jacob MD The documentation for this note was completed by Serina Garcia Ma acting as scribe for Emilia Jacob MD. June 02, 2022 9:27 AM. Serina Garcia Ma documented in this encounterKeenan Private Hospital07-19-2022 Miscellaneous Notes* Telephone Encounter - Carolyn Romero Ma - 04/28/2022 5:11 PM EDT Pt notified. * Telephone Encounter - Emilia Jacob MD - 04/28/2022 5:07 PM EDT Please notify patient that his blood work looks good; his blood count is normal. His fatigue is most likely due to having had Covid, and should improve with time Emilia Jacob MD documented in this encounterKeenan Private Hospital07-18-2022 Miscellaneous Notes* Telephone Encounter - Emilia Jacob MD - 04/27/2022 10:29 AM EDT Noted Emilia Jacob MD * Telephone Encounter - Lily Schaffer RN - 04/27/2022 8:45 AM EDT Pts called in reports they had been on a trip to [facility]. Pt had tested positive for Covid a [...] been going back to be. Pt scheduled withprovider today at 300 pm. documented in this encounterKeenan Private Hospital06-30-2022 History of Present illness Narrative* Emilia Jacob MD - 04/09/2022 3:00 PM EDT Chief Complaint No chief complaint on file. HPI Zachary Mcdermott is a 86 year old male [...] nodules at L lung base-repeat 6 mo SPEPnegative in 04-18 HBsAg neg, Hep A positive, [...] cream Dr. Bridger Lomax. Apply as needed foreczema. apixaban (ELIQUIS) 5 mg tab(s) Take 1 [...] which included preparing to see the patient, [id number] patient care, completing clinical documentation, obtaining and/or reviewing separately obtained history, performing a medically appropriate examination and counseling and educating the patient/family/caregiver. Emilia Jacob MD documented in this encounterKeenan Private Hospital06-24-2022 History of Present illness Narrative* Isabell Capone MD - 04/03/2022 1:21 PM EDT FOLLOW UP VISIT NAME: Zachary [facility]ington [facility] NO.: [id number] DATE OF SERVICE: 04/03/2022 : 1935 REFERRING PHYSICIAN: Emilia Jacob MD Zachary is status post laparoscopic cholecystectomy done for acute cholecystitis presentation at [facility]. It was done on 03/24/2022. Pathology from [facility] - chronic cholecystitis and cholelithiasis) Patient denies abdominal pain. Feels more tired than usual. VITALS: Blood pressure 96/58, pulse 111, temperature 36.8 C (98.2 F), height 172.7 cm (5' 8), weight 78.5 kg (173 lb), SpO2 94 [...] others. Isabell Capone MD documented in this encounterKeenan [facility]05-[facility]22 Nurse Note* Carolyn Romero Ma - 02/26/2022 9:18 AM EDT Falls Risk Intake: 1. Patient age 65 or over, unsteady, or was advised to use special equipment to aid ambulation (i.e., cane or walker)? Yes 2. Has the patient had two falls in the past year, or one with injury? No 3. Does the patient need to use their hands when pushing up from chair, or hold onto furniture whenambulating at home? No 4. Is the patient worried about falling? Yes Please inform patient that answering Yes to one or more of the questions above can increase theirrisk of falling Patient is at greater risk for falls. Falls Instruction: Teaching document below - reviewed and given to patient [facility] - Preventing Falls and Maintaining Balance documented in this encounterKeenan [facility] Hospital05-19-2022 History of Present illness Narrative* Carolyn Romero Ma - 02/26/2022 9:00 AM EDT Chief Complaint Patient presents with: F/U 3 Month HPI Zachary Mcdermott is a 86 year old male who presents here today for 3 month follow up. Here with . Both living in [facility]. Going to be going on a river cruise to [place], taking their kids and grand kids, in April. Has an advanced directive. Denies any bowel, Gi, or urinary issues. Is on both Uroxatral 10 mg daily and Avodart 0.[address] Cee, Urologist at [facility]. Uses Viagra as needed for ED [...] no neuropathy sx. Gets eye exams at [facility]. HTN: Denies checking BP at home, no chest pains, dizziness, or SOB. Follows with Duty Manager, Dr. Mojica. Currently on Lisinopril 40 mg daily and Norvasc 5 mg daily. CVA & Lipid: Is taking Lipitor 80 mg daily and Eliquis 5 mg BID. No longer taking an aspirin a day. Uses a walker to ambulate. Tries to watch diet and walk for some for exercise. He would like tohave an rx for transport chair to use [...] nodules at L lung base-repeat 6 mo SPEPnegative in 04-18 HBsAg neg, Hep A positive, [...] cream Dr. Bridger Lomax. Apply as needed foreczema. sildenafil (VIAGRA) 100 mg tablet Take one [...] in no acute distress, well-hydrated, well nourished. andOverweight. Lungs: Lungs clear to auscultation. No wheezing, [...] Romero Ma acting as scribe for Emilia Jacob MD. February 26, 2022 9:05 AM. Carolyn Romero Ma documented in this encounterKeenan [facility] Hospital04-15-2022 History of Present illness Narrative* Emilia Jacob MD - 01/23/2022 11:15 AM EDT Chief Complaint Patient presents with: Nausea: X 1 week HPI Zachary Mcdermott is a 86 year old male [...] nodules at L lung base-repeat 6 mo SPEPnegative in 04-18 HBsAg neg, Hep A positive, [...] cream Dr. Bridger Lomax. Apply as needed foreczema. sildenafil (VIAGRA) 100 mg tablet Take one [...] Decision Making Level: 4 - Moderate Emilia Jacob MD documented in this encounterKeenan Private Hospital04-15-2022 Miscellaneous Notes* Telephone Encounter - Emilia Jacob MD - 01/23/2022 11:05 AM EDT Noted Emilia Jacob MD * Telephone Encounter - Lily Schaffer RN - 01/23/2022 10:18 AM EDT Protocol recommends home care. Pt has appointment booked with provider today. Care plan reviewed with patient. Patient voices understanding. Advised patient that if symptoms get worse to be evaluatedin Urgent Care or ER. Reason for Disposition [...] much. did home Covid test that was negative.Took temp while on phone temp was 98.5. 3. VOMITING: Pt denies. 4. RECURRENT SYMPTOM: Pt denies having this type of nausea before. 5. CAUSE: Pt does not know cause. Protocols used: [id number] documented in this encounterKeenan Private Hospital04-07-2022 Miscellaneous Notes* Telephone Encounter - Emilia Jacob MD - 01/15/2022 8:17 AM EDT OK to refill as ordered Emilia Jacob MD * Telephone Encounter - Radha Mackay LPN - 01/15/2022 7:51 AM EDT Pt requesting 90 day supply with refills. [...] Please advise. Thank you. Radha Mackay LPN * Telephone Encounter - Carmen Benítez LPN - 01/15/2022 7:15 AM EDT Patient phones requesting refills as follows: Pending Prescriptions Disp Refills GLIMEPIRIDE 2 MG TABLET 90 tablet 11 Sig: take 1 tablet by mouth once daily with breakfast DARINEL: Yes Please review and advise. Carmen Benítez LPN documented in this encounterKeenan Private Hospital02-22-2022 Miscellaneous Notes* Telephone Encounter - Emilia Jacob MD - 12/02/2021 3:43 PM EST OK to refill as ordered Emilia Jacob MD * Telephone Encounter - Nolvia Aldridge - 12/02/2021 2:31 PM EST Patient has been identified by name and [...] patient. 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 October 02 chronic PAF (paroxysmal atrial fibrillation) chronic Mass of right chest wall chr onic [facility] Work Phone: [phone]) 900-476012-23-2020 Evaluation note* Diagnosis Onset Date Resolution Status Chondrosarcoma of ribs chron ic Essential (primary) hypertension chronic History of ischemic right 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 October 02 chronic PAF (paroxysmal atrial fibrillation) chronic 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 Nonspecific abnormal results of liver function [...] of this encounter (statuses as of 01/06/2022) [facility] History of Past illness Narrative* Problem Noted [...] 04/14/2013 Overview: April 2009 -- diagnosed at [facility] [place]; felt contracted on trip to [facility]. Nonspecific abnormal results of liver function [...] of this encounter (statuses as of 01/15/2022) [facility] History of Past illness Narrative* Problem Noted [...] 04/14/2013 Overview: April 2009 -- diagnosed at [facility] [place]; felt contracted on trip to [facility]. Nonspecific abnormal results of liver function [...] of this encounter (statuses as of 01/23/2022) [facility] of Past illness Narrative* Problem Noted [...] 04/14/2013 Overview: April 2009 -- diagnosed at [facility] [place]; felt contracted on trip to [facility]. Nonspecific abnormal results of liver function [...] of this encounter (statuses as of 01/23/2022) [facility] of Past illness Narrative* Problem Noted [...] 04/14/2013 Overview: April 2009 -- diagnosed at [facility] [place]; felt contracted on trip to [facility].. Nonspecific abnormal results of liver [...] of this encounter (statuses as of 02/26/2022) [facility] of Past illness Narrative* Problem Noted [...] 04/14/2013 Overview: April 2009 -- diagnosed at [facility] [place]; felt contracted on trip to [facility]. Nonspecific abnormal results of liver function [...] of this encounter (statuses as of 04/03/2022) [facility] of Past illness Narrative* Problem Noted [...] 04/14/2013 Overview: April 2009 -- diagnosed at [facility] [place]; felt contracted on trip to [facility]. Nonspecific abnormal results of liver function [...] of this encounter (statuses as of 04/09/2022) [facility] of Past illness Narrative* Problem Noted [...] 04/14/2013 Overview: April 2009 -- diagnosed at [facility] [place]; felt contracted on trip to [facility].. Nonspecific abnormal results of liver [...] of this encounter (statuses as of 04/27/2022) [facility] of Past illness Narrative* Problem Noted [...] 04/14/2013 Overview: April 2009 -- diagnosed at [facility] [place]; felt contracted on trip to [facility].. Nonspecific abnormal results of liver [...] of this encounter (statuses as of 04/28/2022) [facility] of Past illness Narrative* Problem Noted [...] 04/14/2013 Overview: April 2009 -- diagnosed at [facility] [place]; felt contracted on trip to [facility]. Nonspecific abnormal results of liver function [...] of this encounter (statuses as of 06/02/2022) [facility] of Past [facility] Narrative* Problem Noted [...] 04/14/2013 Overview: April 2009 -- diagnosed at [facility] [place]; felt contracted on trip to [facility]. Nonspecific abnormal results of liver function [...] of this encounter (statuses as of 11/09/2022) [facility] of Past illness Narrative* Problem Noted [...] 04/14/2013 Overview: April 2009 -- diagnosed at [facility] [place]; felt contracted on trip to [facility]. 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 10/27/2016 Seborrheic Keratoses 08/27/2013 03/12/2015 Solar lentigo 08/27/2013 03/12/2015 Xerosis cutis 08/27/2013 03/12/2015 Actinic skin damage 08/27/2013 03/12/2015 Scars 08/27/2013 03/12/2015 Other acne 08/27/2013 03/12/2015 Epidermal cyst 08/27/2013 03/12/2015 Irritated//Inflamed Seborrheic Keratosis 012 03/12/2015 Postinflammatory skin changes 09/13/2012 Other seborrheic dermatitis 09/13/2012 0611/2014 Folliculitis 07/14/2012 04/14/2013 Pyoderma, 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 04/14/2013 [...] 04/14/2013 Overview: April 2009 -- diagnosed at [facility] [place]; felt contracted on trip to [facility]. Nonspecific abnormal results of liver function [...] of this encounter (statuses as of 12/10/2022) [facility] of Past [facility] Narrative* Problem Noted [...] 04/14/2013 Overview: April 2009 -- diagnosed at [facility] [place]; felt contracted on trip to [facility].. Nonspecific abnormal results of liver [...] of this encounter (statuses as of 12/28/2022) [facility] of Past illness Narrative* Problem Noted [...] 04/14/2013 Overview: April 2009 -- diagnosed at [facility] [place]; felt contracted on trip to [facility].. Nonspecific abnormal results of liver [...] of this encounter (statuses as of 02/05/2023) [facility] of Past illness Narrative* Problem Noted [...] 04/14/2013 Overview: April 2009 -- diagnosed at [facility] [place]; felt contracted on trip to [facility].. Nonspecific abnormal results of liver [...] of this encounter (statuses as of 02/17/2023) [facility] of Past illness Narrative* Problem Noted [...] 04/14/2013 Overview: April 2009 -- diagnosed at [facility] [place]; felt contracted on trip to [facility].. Nonspecific abnormal results of liver function s torito 05/07/2009 04/14/2013 Overview: ALT 36 in 05-19 Abn findings-lung field 05/03/2009 04/14/20 Overview: CT 04-18 showed incidental finding of [...] of this encounter (statuses as of 03/24/2023) [facility] Narrative* Problem Noted [...] 04/14/2013 Overview: April 2009 -- diagnosed at [facility] [place]; felt contracted on trip to [facility]. Nonspecific abnormal results of liver function [...] of this encounter (statuses as of 06/08/2023) [facility] Narrative* Problem Noted [...] 04/14/2013 Overview: April 2009 -- diagnosed at [facility] [place]; felt contracted on trip to [facility]. Nonspecific abnormal results of liver function [...] of this encounter (statuses as of 06/30/2023) [facility] Narrative* Problem Noted [...] 04/14/2013 Overview: April 2009 -- diagnosed at [facility] [place]; felt contracted on trip to [facility] Nonspecific abnormal results of liver function study [...] of this encounter (statuses as of 08/19/2023) [facility] of [facility] Narrative* Problem Noted [...] 04/14/2013 Overview: April 2009 -- diagnosed at [facility] [place]; felt contracted on trip to [facility] Nonspecific abnormal results of liver function study [...] of this encounter (statuses as of 08/20/2023) [facility] Narrative* Problem Noted [...] 04/14/2013 Overview: April 2009 -- diagnosed at [facility] [place]; felt contracted on trip to [facility]. Nonspecific abnormal results of liver function [...] of this encounter (statuses as of 08/30/2023) [facility] of Past illness Narrative* Problem Noted [...] 04/14/2013 Overview: April 2009 -- diagnosed at [facility] [place]; felt contracted on trip to [facility].. Nonspecific abnormal results of liver function study 05/07/2009 04/14/2013 Overview: ALT 36 in 05-19 Abn findings-lung field 05/03/2009 07/02/2013 Overview: CT [...] of this encounter (statuses as of 09/17/2023) [facility] Narrative* Problem Noted [...] 04/14/2013 Overview: April 2009 -- diagnosed at [facility] [place]; felt contracted on trip to [facility]. Nonspecific abnormal results of liver function [...] as of this encounter (statuses as of 11/19/2023) [facility] Narrative* Problem Noted [...] 04/14/2013 Overview: April 2009 -- diagnosed at [facility] [place]; felt contracted on trip to [facility]. Nonspecific abnormal results of liver function [...] as of this encounter (statuses as of 11/25/2023) [facility] Narrative* Problem Noted [...] 04/14/2013 Overview: April 2009 -- diagnosed at [facility] [place]; felt contracted on trip to [facility]. Nonspecific abnormal results of liver function study 05/07/2009 04/14/2013 Overview: ALT 36 in 8- Abn findings-lung field 05/03/2009 07/0 02/2013 Overview: [...] as of this encounter (statuses as of 11/29/2023) [facility] Narrative* Problem Noted [...] 04/14/2013 Overview: April 2009 -- diagnosed at [facility] [place]; felt contracted on trip to [facility].. Nonspecific abnormal results of liver [...] as of this encounter (statuses as of 12/11/2023) [facility] Narrative* Problem Noted [...] 04/14/2013 Overview: April 2009 -- diagnosed at [facility] [place]; felt contracted on trip to [facility] Nonspecific abnormal results of liver function study [...] as of this encounter (statuses as of 12/17/2023) [facility] Narrative* Problem Noted [...] 04/14/2013 Overview: April 2009 -- diagnosed at [facility] [place]; felt contracted on trip to [facility] Nonspecific abnormal results of liver function study [...] as of this encounter (statuses as of 12/29/2023) [facility] complaint+Reason for visit Narrative* Chief Complaint REVIEW CT SCAN 6 MO - NO LABS EVAL ANY DISEASE PROGRESSION REVIEW CT SCANW Fall, 6 M FU E-ORDER Reason for Visit 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 HOLT (dyspnea on exertion) Essential (primary) hypertension History of ischemic right 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 PAF (paroxysmal atrial fibrillation) [facility] Work Phone: Evaluation note* Diagnosis Essential hypertension, benign Type 2 diabetes mellitus without complication, without long-term current use of insulin (HCC) documented in this encounter [facility]* Diagnosis Type 2 diabetes mellitus without complication, without long-term current use of insulin (HCC) [facility] this encounter [facility]* Diagnosis Nausea- Primary Nausea alone Essential hypertension, benign Type 2 diabetes mellitus without complication, without long-term current use of insulin (HCC) History of CVA (cerebrovascular accident) Transient ischemic attack (TIA), and cerebral infarction without residual deficits Depression, unspecified depression type documented in this encounter [facility]* Diagnosis Cerebrovascular accident (CVA), unspecified mechanism (HCC)- Primary Pure hypercholesterolemia Essential hypertension, benign Type 2 diabetes mellitus without complication, without long-term current use of insulin (HCC) 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) Need for COVID-19 vaccine documented in this encounter [facility]* Diagnosis Onset Date Resolution Status Pancreatitis acute [facility] Work Phone: Evaluation note* Diagnosis Onset Date Resolution Status Cholelithiasis acute Pancreatitis acute Status post laparoscopic cholecystectomy acute [facility] Work Phone: Evaluation note* Diagnosis Status post laparoscopic cholecystectomy- Primary Other postprocedural status documented in this encounter [facility]* Diagnosis Essential hypertension, benign- Primary Type 2 diabetes mellitus without complication, without long-term current use of insulin (HCC) 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) Depression, unspecified depression type documented in this encounter [facility]* Diagnosis Type 2 diabetes mellitus without [...] esophagitis Esophageal reflux documented in this encounter [facility]* Diagnosis Cough, unspecified type- Primary Chest congestion Other symptoms involving respiratory system and chest Sinus congestion Other diseases of nasal cavity and sinuses documented in this encounter [facility]* Diagnosis Type 2 diabetes mellitus without complication, without long-term current use of insulin (HCC)- Primary Essential hypertension, benign Pure hypercholesterolemia History of CVA (cerebrovascular accident) Transient ischemic attack (TIA), and cerebral infarction without residual deficits 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) documented in this encounter [facility]* Diagnosis GERD without esophagitis Esophageal reflux documented [facility] this encounter [facility]* Diagnosis 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) Fatigue, unspecified type documented [facility] this encounter [facility]* Diagnosis 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)- Primary [facility] Diagnosis Type 2 diabetes mellitus without complication, without long-term current use of insulin (HCC) [facility]* Diagnosis Type 2 diabetes mellitus without complication, without long-term current use of insulin (HCC)- Primary Pure hypercholesterolemia Essential hypertension, benign History of CVA (cerebrovascular accident) Transient ischemic attack (TIA), and cerebral infarction without residual deficits documented in this encounter [facility] note* Diagnosis URI with cough and congestion- Primary [facility]* Diagnosis 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) [facility]* Diagnosis Onset Date Resolution Status 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 [facility] Work Phone: Evaluation note* Diagnosis Onset Date Resolution Status 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 [facility] Work Phone: Evaluation note* Diagnosis Closed fracture of one rib of left side, sequela- Primary Type 2 diabetes mellitus without complication, without long-term current use of insulin (HCC) 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, site unspecified Atrial fibrillation, unspecified type (HCC) 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) [facility]* Diagnosis Onset Date Resolution Status 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 HOLT (dyspnea on exertion) ac rl Essential (primary) hypertension chronic History of ischemic right 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 October 02 chronic PAF (paroxysmal atrial fibrillation) chronic [facility] Work Phone: Evaluation note* Diagnosis Type 2 diabetes mellitus without complication, without long-term current use of insulin (HCC)- Primary documented in this encounter [facility] note* Diagnosis Cough, unspecified type- Primary Essential hypertension, benign Atrial fibrillation, unspecified type (HCC) Type 2 diabetes mellitus without complication, without long-term current use of insulin (HCC) 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, 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) documented in this encounter [facility]* Diagnosis 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) Essential hypertension, benign documented in this encounter [facility] note* Diagnosis Type 2 diabetes mellitus without complication, without long-term current use of insulin (HCC)- Primary 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, site unspecified Pure hypercholesterolemia 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) Atrial fibrillation, unspecified type (HCC) Essential hypertension, benign Hyperlipidemia, unspecified hyperlipidemia type [facility] Diagnosis GERD without esophagitis Esophageal reflux [facility] Diagnosis 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) Fatigue, unspecified type documented in this encounter [facility] note* Diagnosis 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) Fatigue, unspecified type documented in this encounter [facility] note* Diagnosis Atrial fibrillation, unspecified type (HCC)- Primary documented in this encounter [facility] Summary Purpose Family History No Family History Records Found Relationship Condition Age at Onset Recorded Date/T trish Unknown Family History?No pe rtinent history Unknown October 02, 2020 8:55pm Family History?No pe rtinent history Unknown October 02, 2020 8:55pm Relationship Condition Age at Onset Recorded Date/T trish Unknown Family History?No pe rtinent history Unknown October 02, 2020 7:55pm Family History?No pe rtinent history Unknown October 02, 2020 7:55pm Relationship Condition Age at Onset Recorded Date/T trish sister Malignant neoplasm of ovary Unknown Diabetes mellitus Unknown mother Basal cell carcinoma (BCC) Unknown father Congestive heart failure Unknown grandfather Diabetes mellitus Unknown Advance Directives No Advanced Directives Records FoundDocuments on File Type Date Recorded Patient Destaticizer Feeder Expl anation Advance Directive(s) 04/19/2009 8:56 PM Advance Directive(s) 11/26/2006 12:00 AM Advance Directive Response Recorded Date/ Time Living Will Yes March 20, 2022 8:00pm Power of Warehouser Yes March 20 8:00pm Advance Directive Response Recorded Date/ Time Name of Medical Power of Warehouser Patti Mcdermott March 21, 2022 1:16am Living Will Yes March 21, 2022 1:16am Power of Warehouser Yes March 21 1:16am Documents on File Type Date Recorded Patient Destaticizer Feeder Expl anation Advance Directive(s) 04/19/2009 8:56 PM Advance Directive(s) 11/26/2006 Advance Directive Response Recorded Date/ Time Living Will Yes March 21, 2022 12:16am Power of Warehouser Yes March 21 12:16am Advance Directive Response Recorded Date/ Time Living Will Yes March 21, 2022 1:16am Power of Warehouser Yes March 21 1:16am Advance Directive Response Recorded Date/ Time Living Will Yes January 29, 2023 10:34am Power of Warehouser Yes January 29 10:34am Advance Directive Response Recorded Date/ Time Living Will Yes January 29, 2023 9:34am Power of Warehouser Yes January 29 9:34am Documents on File Type Date Recorded Patient Destaticizer Feeder Expl anation Advance Directive(s) 04/19/2009 8:56 PM Advance Directive(s) 11/26/2006 Chief Complaint and Reason for Visit Chief Complaint ACUTE PANCREATITIS Reason for Visit Pancreatitis Chief Complaint ACUTE PANCREATITIS ACUTE PANCREATITIS ACUTE PANCREATITIS ACUTE PANCREATITIS ACUTE PANCREATITIS Reason for Visit Cholelithiasis Pancreatitis Status post laparoscopic cholecystectomy Chief Complaint 1 Y FU EORDERS DYSPNEA Reason for Visit Essential (primary) hypertension History of ischemic right 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 PAF (paroxysmal atrial fibrillation) Chief Complaint 1 Y FU EORDERS DYSPNEA Amb Documentation RIGHT CHEST MASS Localized swelling, mass and lump, trunk Reason for Visit Essential (primary) hypertension History of ischemic right 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 PAF (paroxysmal atrial fibrillation) Chief Complaint 1 Y FU EORDERS DYSPNEA Amb Documentation RIGHT CHEST MASS Localized swelling, mass and lump, trunk NEW PT - RIGHT CHEST MASS CHEST WALL MASS/STAT LABS Reason for Visit Essential (primary) hypertension History of ischemic right 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 PAF (paroxysmal atrial fibrillation) Mass of right chest wall Chief Complaint 3 MO - NO LABS 6 M FU 3 MONTH F/U CHEST WALL MASS Malignant neoplasm of ribs, sternum and clavicle REVIEW CT SCAN Reason for Visit Chondrosarcoma of ri bs Essential (primary) hypertension History of ischemic right 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 PAF (paroxysmal atrial fibrillation) Chondrosarcoma of ribs Chondrosarcoma of ribs Chief Complaint 3 MONTH F/U CHEST WA LL MASS Malignant neoplasm of ribs, sternum and clavicle REVIEW CT SCAN 6 MO - NO LABS EVAL ANY DISEASE PROGRESSION Reason for Visit 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 Chief Complaint 3 MONTH F/U CHEST WA LL MASS Malignant neoplasm of ribs, sternum and clavicle REVIEW CT SCAN 6 MO - NO LABS EVAL ANY DISEASE PROGRESSION REVIEW CT SCANW Fall, Reason for Visit 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 Health Concerns Infection Onset Date Last Indicated Resolved Time COVID-19 Rule-Out 08/19/2023 08/19/2023 Infection Onset Date Last Indicated Resolved Time COVID-19 Rule-Out 08/19/2023 08/19/2023 08/20/2023 1:28 AM EST Reason for Referral Specialty Diagnoses / Procedures Referred By Contac t Referred To Contact Diagnoses Type 2 diabetes mellitus without complication, without long-term current use of insulin ([facility]) Emilia Jacob MD [address] [place] [address] Referral ID Status Reason Start Date Expiration Date Visits Re quested Visits Authorized [id number] Closed 1 1 Additional Source Comments (unrecognized sect ion and content) No Status Records FoundNo Status Records FoundNo Status Records Found INFORMATION SOURCE (unrecogn ized section and content) DATE CREATED AUTHOR 11/09/2021 [facility] DATE CREATED AUTHOR AUTHOR'S ORGANIZ ATION 06/08/2024 [facility] DATE CREATED AUTHOR AUTHOR'S ORGANIZ ATION 04/04/2025 [facility] Source Comments (unrecognize d section and content) In the event this informatio n is protected by the Federal Confidentiality of Alcohol and Drug Abuse Patient Records regulations: The Federal rules restrict any use of the information to criminally investigate or prosecute any alcohol or drug abuse patient.[facility] the event this information is protected by the Federal Confidentiality of Alcohol and Drug Abuse Patient Records regulations: The Federal rules restrict any use of the information to criminally investigate or prosecute any alcohol or drug abuse patient.[facility] the event this information is protected by the Federal Confidentiality of Alcohol and Drug Abuse Patient Records regulations: The Federal rules restrict any use of the information to criminally investigate or prosecute any alcohol or drug abuse patient.[facility] the event this information is protected by the Federal Confidentiality of Alcohol and Drug Abuse Patient Records regulations: The Federal rules restrict any use of the information to criminally investigate or prosecute any alcohol or drug abuse patient.[facility] the event this information is protected by the Federal Confidentiality of Alcohol and Drug Abuse Patient Records regulations: The Federal rules restrict any use of the information to criminally investigate or prosecute any alcohol or drug abuse patient.[facility] the event this information is protected by the Federal Confidentiality of Alcohol and Drug Abuse Patient Records regulations: The Federal rules restrict any use of the information to criminally investigate or prosecute any alcohol or drug abuse patient.[facility] the event this information is protected by the Federal Confidentiality of Alcohol and Drug Abuse Patient Records regulations: The Federal rules restrict any use of the information to criminally investigate or prosecute any alcohol or drug abuse patient.[facility] the event this information is protected by the Federal Confidentiality of Alcohol and Drug Abuse Patient Records regulations: The Federal rules restrict any use of the information to criminally investigate or prosecute any alcohol or drug abuse patient.[facility] the event this information is protected by the Federal Confidentiality of Alcohol and Drug Abuse Patient Records regulations: The Federal rules restrict any use of the information to criminally investigate or prosecute any alcohol or drug abuse patient.[facility] the event this information is protected by the Federal Confidentiality of Alcohol and Drug Abuse Patient Records regulations: The Federal rules restrict any use of the information to criminally investigate or prosecute any alcohol or drug abuse patient.[facility] the event this information is protected by the Federal Confidentiality of Alcohol and Drug Abuse Patient Records regulations: The Federal rules restrict any use of the information to criminally investigate or prosecute any alcohol or drug abuse patient.[facility] the event this information is protected by the Federal Confidentiality of Alcohol and Drug Abuse Patient Records regulations: The Federal rules restrict any use of the information to criminally investigate or prosecute any alcohol or drug abuse patient.[facility] the event this information is protected by the Federal Confidentiality of Alcohol and Drug Abuse Patient Records regulations: The Federal rules restrict any use of the information to criminally investigate or prosecute any alcohol or drug abuse patient.[facility] the event this information is protected by the Federal Confidentiality of Alcohol and Drug Abuse Patient Records regulations: The Federal rules restrict any use of the information to criminally investigate or prosecute any alcohol or drug abuse patient.[facility] the event this information is protected by the Federal Confidentiality of Alcohol and Drug Abuse Patient Records regulations: The Federal rules restrict any use of the information to criminally investigate or prosecute any alcohol or drug abuse patient.[facility] the event this information is protected by the Federal Confidentiality of Alcohol and Drug Abuse Patient Records regulations: The Federal rules restrict any use of the information to criminally investigate or prosecute any alcohol or drug abuse patient.[facility] the event this information is protected by the Federal Confidentiality of Alcohol and Drug Abuse Patient Records regulations: The Federal rules restrict any use of the information to criminally investigate or prosecute any alcohol or drug abuse patient.[facility] the event this information is protected by the Federal Confidentiality of Alcohol and Drug Abuse Patient Records regulations: The Federal rules restrict any use of the information to criminally investigate or prosecute any alcohol or drug abuse patient.[facility] the event this information is protected by the Federal Confidentiality of Alcohol and Drug Abuse Patient Records regulations: The Federal rules restrict any use of the information to criminally investigate or prosecute any alcohol or drug abuse patient.[facility] the event this information is protected by the Federal Confidentiality of Alcohol and Drug Abuse Patient Records regulations: The Federal rules restrict any use of the information to criminally investigate or prosecute any alcohol or drug abuse patient.[facility] the event this information is protected by the Federal Confidentiality of Alcohol and Drug Abuse Patient Records regulations: The Federal rules restrict any use of the information to criminally investigate or prosecute any alcohol or drug abuse patient.[facility] the event this information is protected by the Federal Confidentiality of Alcohol and Drug Abuse Patient Records regulations: The Federal rules restrict any use of the information to criminally investigate or prosecute any alcohol or drug abuse patient.[facility] the event this information is protected by the Federal Confidentiality of Alcohol and Drug Abuse Patient Records regulations: The Federal rules restrict any use of the information to criminally investigate or prosecute any alcohol or drug abuse patient.[facility] the event this information is protected by the Federal Confidentiality of Alcohol and Drug Abuse Patient Records regulations: The Federal rules restrict any use of the information to criminally investigate or prosecute any alcohol or drug abuse patient.[facility] the event this information is protected by the Federal Confidentiality of Alcohol and Drug Abuse Patient Records regulations: The Federal rules restrict any use of the information to criminally investigate or prosecute any alcohol or drug abuse patient.[facility] the event this information is protected by the Federal Confidentiality of Alcohol and Drug Abuse Patient Records regulations: The Federal rules restrict any use of the information to criminally investigate or prosecute any alcohol or drug abuse patient.[facility] the event this information is protected by the Federal Confidentiality of Alcohol and Drug Abuse Patient Records regulations: The Federal rules restrict any use of the information to criminally investigate or prosecute any alcohol or drug abuse patient.[facility] the event this information is protected by the Federal Confidentiality of Alcohol and Drug Abuse Patient Records regulations: The Federal rules restrict any use of the information to criminally investigate or prosecute any alcohol or drug abuse patient.[facility] the event this information is protected by the Federal Confidentiality of Alcohol and Drug Abuse Patient Records regulations: The Federal rules restrict any use of the information to criminally investigate or prosecute any alcohol or drug abuse patient.[facility] the event this information is protected by the Federal Confidentiality of Alcohol and Drug Abuse Patient Records regulations: The Federal rules restrict any use of the information to criminally investigate or prosecute any alcohol or drug abuse patient.[facility] the event this information is protected by the Federal Confidentiality of Alcohol and Drug Abuse Patient Records regulations: The Federal rules restrict any use of the information to criminally investigate or prosecute any alcohol or drug abuse patient.[facility] the event this information is protected by the Federal Confidentiality of Alcohol and Drug Abuse Patient Records regulations: The Federal rules restrict any use of the information to criminally investigate or prosecute any alcohol or drug abuse patient.[facility] the event this information is protected by the Federal Confidentiality of Alcohol and Drug Abuse Patient Records regulations: The Federal rules restrict any use of the information to criminally investigate or prosecute any alcohol or drug abuse patient.[facility] the event this information is protected by the Federal Confidentiality of Alcohol and Drug Abuse Patient Records regulations: The Federal rules restrict any use of the information to criminally investigate or prosecute any alcohol or drug abuse patient.[facility]In the event this information is protected by the Federal Confidentiality of Alcohol and Drug Abuse Patient Records regulations: The Federal rules restrict any use of the information to criminally investigate or prosecute any alcohol or drug abuse patient.[facility]In the event this information is protected by the Federal Confidentiality of Alcohol and Drug Abuse Patient Records regulations: The Federal rules restrict any use of the information to criminally investigate or prosecute any alcohol or drug abuse patient.[facility] the event this information is protected by the Federal Confidentiality of Alcohol and Drug Abuse Patient Records regulations: The Federal rules restrict any use of the information to criminally investigate or prosecute any alcohol or drug abuse patient.[facility] Reason for Visit (unrecogniz ed section and content) Reason Onset Date Comments Refill Request 12/02/2021 Reason Comments Refill Request Reason Comments Nausea [...] Reason Onset Date Comments Refill Request 09/16/2023 Reason Comments Hospital Follow Up Reason Comments 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 Reason Onset Date Comments Refill Request 12/17/2023 Reason Comments Recheck 6 month follow up Reason Onset Date Comments Refill Request 02/14/2024 Reason Comments Acute Visit feeling unwell Reason Comments Results Labs/Urine Reason Comments Release Of Medical Records Adult geriatr ics of [facility] Reason Onset Date Comments Population Health Navigation Outreach 06/06/2024 Becky Mccarthy [place] Care Teams (unrecognized sec tion and content) Actuarial Mathematician Relationship Specialty Start Date End Date Emilia Jacob MD [address] [facility] [place] [address] PCP - General Family Practice 02/25/12 Actuarial Mathematician Relationship Specialty Start Date End Date Emilia Jacob MD [address] [facility] [place] [address] PCP - General Family Practice 02/25/12 Actuarial Mathematician Relationship Specialty Start Date End Date Emilia Jacob MD [address] [facility] [place] [address] PCP - General Family Practice 02/25/12 Actuarial Mathematician Relationship Specialty Start Date End Date Emilia Jacob MD [address] [facility] [place] [address] PCP - General Family Practice 02/25/12 Actuarial Mathematician Relationship Specialty Start Date End Date Emilia Jacob MD [address] [facility] [place] [address] PCP - General Family Practice 02/25/12 Actuarial Mathematician Relationship Specialty Start Date End Date Emilia Jacob MD [address] [facility] [place] [address] PCP - General Family Practice 02/25/12 Actuarial Mathematician Relationship Specialty Start Date End Date Emilia Jacob MD [address] [facility] [place] [address] PCP - General Family Practice 02/25/12 Actuarial Mathematician Relationship Specialty Start Date End Date Emilia Jacob MD [address] [facility] [place] [address] PCP - General Family Practice 02/25/12 Actuarial Mathematician Relationship Specialty Start Date End Date Emilia Jacob MD [address] [facility] [place] [address] PCP - General Family Medicine 02/25/12 Actuarial Mathematician Relationship Specialty Start Date End Date Emilia Jacob MD [address] [place] [address] PCP - General Family Medicine 02/25/12 Team Status: Active Member Role Status Dates Dr. Emilia Jacob MD Family Provider Active Dr. Emilia Jacob MD Primary Care Provider Active Team Status: Inactive Member Role Status Dates Dr. Emilia Jacob MD Primary Care Provider, Referr ing Provider Active Dr. Jarrell Mojica MD Attending Provider Active Team Status: Active Member Role Status Dates Dr. Emilia Jacob MD Primary Care Provider Active Dr. Jarrell Mojica MD Attending Provider Active Team Status: Inactive Member Role Status Dates Dr. Emilia Jacob MD Primary Care Provider Active Dr. Jarrell Mojica MD Attending Provider, Referring Pro vider Active Actuarial Mathematician Relationship Specialty Start Date End Date Emilia Jacob MD [address] [place] [address] PCP - General Family Medicine 02/25/12 Team Status: Active Member Role Status Dates Dr. Emilia Jacob MD Primary Care Provider Active Javier Mathews COMMUNICATIONS DEPARTMENT CHAIRPERSON, COMMUNICATIONS DEPARTMENT CHAIRPERSON-C Attending Provider Active Team Status: Inactive Member Role Status Dates Dr. Emilia Jacob MD Primary Care Provider Active Dr. Jarrell Mojica MD Attending Provider Active Team Status: Inactive Member Role Status Dates Dr. Emilia Jacob MD Primary Care Provider Active Javier Mathews COMMUNICATIONS DEPARTMENT CHAIRPERSON, COMMUNICATIONS DEPARTMENT CHAIRPERSON-C Attending Provider, Referring Pro vider Active Actuarial Mathematician Relationship Specialty Start Date End Date Emilia Jacob MD [address] [place] [address] PCP - General Family Medicine 02/25/12 Team Status: Inactive Member Role Status Dates Dr. Emilia Jacob MD Primary Care Provider, Referr ing Provider Active Dr. Jimmy Rick MD Attending Provider Active Team Status: Active Member Role Status Dates Dr. Emilia Jacob MD Primary Care Provider Active Dr. Jimmy Rick MD Attending Provider, Referrin g Provider Active Team Status: Inactive Member Role Status Dates Dr. Emilia Jacob MD Primary Care Provider Active Dr. Jimmy Rick MD Attending Provider, Referrin g Provider Active Actuarial Mathematician Relationship Specialty Start Date End Date Emilia Jacob MD [address] [facility] [place] [address] PCP - General Family Medicine 02/25/12 Actuarial Mathematician Relationship Specialty Start Date End Date Emilia Jacob MD [address] [place] [address] PCP - General Family Medicine 02/25/12 Actuarial Mathematician Relationship Specialty Start Date End Date Emilia Jacob MD [address] [place] [address] PCP - General Family Medicine 02/25/12 Actuarial Mathematician Relationship Specialty Start Date End Date Emilia Jacob MD [address] [place] [address] PCP - General Family Medicine 02/25/12 Team Status: Inactive Member Role Status Dates Dr. Emilia Jacob MD Primary Care Provider, Referr ing Provider Active Caitlin Thomas PA, PA Attending Provider Active Team Status: Inactive Member Role Status Dates Dr. Emilia Jacob MD Primary Care Provider, Referr ing Provider Active Dr. Andres Shipley DO Attending Provider Active Team Status: Inactive Member Role Status Dates Dr. Emilia Jacob MD Primary Care Provider Active Dr. Andres Shipley DO Attending Provider, Referring P humberto Active Actuarial Mathematician Relationship Specialty Start Date End Date Emilia Jacob MD [address] [facility] [place] [address] PCP - General Family Medicine 02/25/12 Actuarial Mathematician Relationship Specialty Start Date End Date Emilia Jacob MD [address] [place] [address] PCP - General Family Medicine 02/25/12 Team Status: Inactive Member Role Status Dates Dr. Emilia Jacob MD Primary Care Provider Active Dr. Herson Acuña DO Emergency Provider Active Actuarial Mathematician Relationship Specialty Start Date End Date Emilia Jacob MD [address] [facility] [place] [address] PCP - General Family Medicine 02/25/12 Actuarial Mathematician Relationship Specialty Start Date End Date Emilia Jacob MD [address] [facility] [place] [address] PCP - General Family Medicine 02/25/12 Team Status: Inactive Member Role Status Dates Dr. Emilia Jacob MD Primary Care Provider Active Dr. Herson Acuña DO Attending Provider, Emergency Provider Active Team Status: Inactive Member Role Status Dates Dr. Emilia Jacob MD Primary Care Provider Active Caitlin Thomas PA, PA Attending Provider, Referr ing Provider Active Actuarial Mathematician Relationship Specialty Start Date End Date Emilia Jacob MD [address] [facility] [place] [address] PCP - General Family Medicine 02/25/12 Actuarial Mathematician Relationship Specialty Start Date End Date Emilia Jacob MD [address] [place] [address] PCP - General Family Medicine 02/25/12 Actuarial Mathematician Relationship Specialty Start Date End Date Emilia Jacob MD [address] [facility] [place] [address] PCP - General Family Medicine 02/25/12 Actuarial Mathematician Relationship Specialty Start Date End Date Emilia Jacob MD [address] [facility] [facility] [place] [address] PCP - General Family Medicine 02/25/12 Actuarial Mathematician Relationship Specialty Start Date End Date Emilia Jacob MD [address] [place], [place] [id number] PCP - General Family Medicine 02/25/12 Actuarial Mathematician Relationship Specialty Start Date End Date Emilia Jacob MD [address] [place], [place] [id number] PCP - General Family Medicine 02/25/12 Actuarial Mathematician Relationship Specialty Start Date End Date Emilia Jacob MD [address] [place], [place] [id number] PCP - General Family Medicine 02/25/12 Actuarial Mathematician Relationship Specialty Start Date End Date Selvin, [place] Red [address] [place], [place] [id number] PCP - General Gerontology 06/06/24 Goals (unrecognized section and content) Goals may be documented in a n alternate sectionGoals may be documented in an alternate sectionGoals may be documented in an alternate sectionGoals may be documented in an alternate sectionGoals may be documented in an alternate sectionGoals may be documented in an alternate sectionGoals may be documented in an alternate sectionGoals may be documented in an alternate section FOR RECORDS PERTAINING TO PATIENTS WHO ARE [...] BE BASED ON THE PRIMARY CLINICAL RECORDS. [facility]. provides no warranty or guarantee of the accuracy or completeness of information in this document.
== END | disposition home or self-care (01) ==
LOC: CT 13:02
PROVIDERS: PCP Family Medicine Geriatric Medicine; Referring Provider Student in an Organized Health Care Education/Training Program; Visit Provider Student in an Organized Health Care Education/Training Program
DX: C41.3 Malignant neoplasm of ribs, sternum and clavicle (principal)
CPT/HCPCS: 71260; Q9967

== ENCOUNTER → 2025-05-11 | Outpatient (CLI) | payer MEDICARE, SELFPAY ==
--- NOTE | 2025-05-11 14:50 | RAD_ITS ---
EXAM: XR Right Wrist Complete, 3 or More Views CLINICAL INDICATION: RIGHT WRIST PAIN TECHNIQUE: Frontal, lateral and oblique views of the right wrist. COMPARISON: No relevant prior studies available. FINDINGS: BONES/JOINTS: See below. SOFT TISSUES: Soft tissue swelling without acute fracture. No radiopaque foreign body. RAD/Wrist min 3 Views IMPRESSION: 1. Soft tissue swelling without acute fracture. 2. If symptoms persist, further evaluation with CT is recommended. Reading Location: [id number]
[2025-05-11 15:09] LABS: Creatinine, Urine (random) 89.90 mg/dL (39.00-259.00); Microalbumin,Random Urine < 12.0 mg/L (<20 mg/L)
[2025-05-11 15:14] LABS: Hematocrit 39.9 % (40-54); Hemoglobin 13.5 g/dL (13.0-16.5); Immature Granulocytes Count 0.080 X10^3/uL (0.0-0.0); Mean Corp Hgb Conc 33.8 g/dL (32-36); Mean Corpuscular Volume 93.0 fL (80-94); Mean Platelet Vol. 12.8 fl (6.2-12.0); NRBC Flagged by Analyzer 0 % (0-5); Platelet Count 204 K/mm3 (150-450); RBC Distribution Width CV 12.8 % (11.6-14.6); RBC Distribution Width SD 43.5 fl (35.1-43.9); Red Blood Count 4.29 M/mm3 (4.6-6.2); White Blood Count 14.5 K/mm3 (4.4-11.0)
[2025-05-11 16:17] LABS: AST(SGOT) 45 U/L (<=37); Alanine Aminotransfer ALT/SGPT 78 U/L (<=46); Albumin, Serum 4.0 g/dL (3.4-4.8); Alkaline Phosphatase 88 U/L (40-129); Anion Gap 12 (5-15); BUN 12 mg/dL (4-19); BUN/Creat Ratio 13.9 RATIO (10-20); Calcium,Total 9.3 mg/dL (7.6-11.0); Carbon Dioxide 23.4 mmol/L (21.0-32.0); Chloride 103 mmol/L (98-108); Cholesterol 88 mg/dL (<=200); Globulin 2.7 g/dL (2.2-4.2); Glucose 349 mg/dL (70-99); Low Density Lipoprotein Calc. 31 mg/dL; Potassium 4.4 mmol/L (3.3-5.1); Triglycerides 85 mg/dL; Very Low Density Lipoprotein 17 mg/dL (5-40); Vitamin D,25 Hydroxy 12.9 ng/mL (30-100); cholesterol:hdl ratio screen 2.18
== END | disposition home or self-care (01) ==
PROVIDERS: PCP Family Medicine Geriatric Medicine; Referring Provider Family Medicine Geriatric Medicine; Visit Provider Family Medicine Geriatric Medicine
DX: E11.65 Type 2 diabetes mellitus with hyperglycemia (principal); E03.9 Hypothyroidism, unspecified; E55.9 Vitamin D deficiency, unspecified; E78.5 Hyperlipidemia, unspecified; M25.531 Pain in right wrist
CPT/HCPCS: 36415; 73110; 80053; 80061; 82043; 82306; 82570; 84443; 85025

== ENCOUNTER → 2025-05-14 | Outpatient (CLI) | payer MEDICARE, SELFPAY ==
[2025-05-14 15:56] LABS: AST(SGOT) 49 U/L (<=37); Alanine Aminotransfer ALT/SGPT 101 U/L (<=46); Albumin, Serum 3.8 g/dL (3.4-4.8); Alkaline Phosphatase 88 U/L (40-129); Anion Gap 12 (5-15); BUN 12 mg/dL (4-19); BUN/Creat Ratio 15.7 RATIO (10-20); Calcium,Total 8.7 mg/dL (7.6-11.0); Carbon Dioxide 22.2 mmol/L (21.0-32.0); Chloride 104 mmol/L (98-108); Globulin 2.5 g/dL (2.2-4.2); Glucose 288 mg/dL (70-99); Potassium 4.0 mmol/L (3.3-5.1)
[2025-05-14 22:51] LABS: Xtra Tube Kwok EXTRA TUBE
== END | disposition home or self-care (01) ==
LOC: POLAB3 14:26
PROVIDERS: PCP Family Medicine Geriatric Medicine; Visit Provider Family Medicine Geriatric Medicine
DX: E11.65 Type 2 diabetes mellitus with hyperglycemia (principal); R74.01 Elevation of levels of liver transaminase levels
CPT/HCPCS: 36415; 80053; 83036

== ENCOUNTER 2025-06-17 19:05 | Emergency (ER) | payer MEDICARE, SELFPAY ==
[2025-06-17 19:06] VITALS: BP 180/110; PULSE 98; RESP 18; TEMP 36.6; O2SAT 100
--- OUTSIDE RECORDS SUMMARY | 2025-06-17 19:51 | XMS RPT_ITS | CCD ---
Author Organization [facility] CliniSyri Care Team Providers Care Cte Teacher Name Role Phone EMILIA JACOB Primary Care [...] Dr. Emilia Jacob Referring Provider Galina, Dr. Jarrell Attending Provider Roof ROLLER MAKER, ROLLER MAKER-July Sotelo Attending Provider Merline, Dr. Marquez Attending [...] Provider Selvin, Sandoval Chi Primary Care Provider [phone] EMILIA JACOB Attending Unavailable EMILIA JACOB Primary [...] Referring Unavailable EMILIA JACOB Primary Care Unavailable SisEdgar lutz Attending Unavailable Siska Edgar Referring Unavailable Selvin, Sandoval Chi Primary Care Unavailable Selvin, Sandoval Chi Primary Care Unavailable Andres Shipley Attending Unavailable Andres Shipley Referring Unavailable Selvin, Sandoval Chi Primary Care Unavailable SisEdgar lutz Attending Unavailable Selvin, Sandoval Chi Referring Unavailable [...] Unavailable Selvin, Sandoval Chi Primary Care Unavailable Anrdes Shipley Attending Unavailable Selvin, Sandoval Chi Primary Care Unavailable Andres Shipley Attending Unavailable Selvin, Sandoval Chi Primary Care Unavailable Vincent Olmstead Attending Unavailable Edgar Carr Attending Unavailable SisEdgar lutz Referring Unavailable Selvin, Sandoval Chi Primary Care Unavailable Selvin, Sandoval Chi Primary Care Unavailable Edgar Carr Attending Unavailable Selvin, Sandoval Chi Referring Unavailable Selvin, Sandoval Chi Primary Care Unavailable Vincent Olmstead Attending Unavailable Vincent Olmstead Attending Unavailable Selvin, Sandoval Chi Primary Care Unavailable Selvin, Sandoval Chi Attending Unavailable Selvin, Sandoval Chi Primary Care Unavailable Selvin, Sandoval Chi Primary Care Unavailable Selvin, Sandoval Chi Referring Unavailable Selvin, Sandoval Chi Attending Unavailable Selvin, Sandoval Chi Primary Care Unavailable Vincent Olmstead Attending Unavailable Selvin, Sandoval Chi Attending Unavailable [...] Primary Care Unavailable Vincent Olmstead Attending Unavailable Selvin, Sandoval Chi Primary Care Unavailable Caitlin Oconnor Attending Unavail able Selvin, [...] Sandoval Chi Primary Care Unavailable Andres Shipley Referring Unavailable ViolettaAndres Attending Unavailable Selvin, Sandoval Chi Primary Care Unavailable Selvin, Sandoval Chi Primary Care Unavailable Jose Shipleye Attending Unavailable Violetta, Andres Referring Unavailable Selvin, Sandoval Chi Attending Unavailable Selvin, Sandoval Chi Referring Unavailable Selvin, Sandoval Chi Primary Care Unavailable Selvin, Sandoval Chi Attending Unavailable Selvin, Sandoval Chi Referring Unavailable Selvin, Sandoval Chi Primary Care Unavailable Edgar Carr Attending Unavailable Selvin, Sandoval Chi Primary Care Unavailable Allergies Allergy Classification Reported Allergen(s) Allergy Type Date of Onset Reaction(s) Facility (20 sources) Lactate Drug Allergy 6 [facility] Work Phone: (9 sources) Penicillins; Translations: [PENICILLINS] Propensity to adverse reactions 5 [facility] Work Phone: (9 sources) Lactate Drug Allergy 2 [facility] (20 sources) Penicillins Propensity to adverse reactions 5 [facility] Work Phone: (7 sources) Penicillins Allergy to substance 3 [facility] (1 source) OTHER; Translations: [OTHER] Propensity to adverse reactions (disorder) 6 [facility] (1 source) Lactate Drug Allergy 5 [facility] (1 source) Penicillins Drug allergy (disorder) 5 [facility] Medications Current Medications Medication Drug Class(es) [...] 11:17am February 04, 2023 1:14pm 11/13/21-Called to [facility]-30 day free card faxed per request of pharmacist Comment on above: Take 1 tablet by waldemar th twice daily. Take 2 tablets by mo uth twice daily. Take 1 tablet by waldemar [...] above: Take 1 capsule [facility] daily. FLUoxetine 40 mg oral capsule (20 sources) Serotonin Reuptake Inhibitor Start: 02-07-20 23 Fluoxetine Active 40 MG PO DAILY November 17, 2022 1:27pm Take with 40 mg cap to = 60 mg daily Start: 11-17-2022 take 2 capsules by m out once daily, then take 3 capsules by [...] on above: Take 1 capsule by mo ut once daily. Take one pill every other day Take 1 capsule by mo ut once daily. Take 1 capsule by mo [...] tablet (20 sources) Serotonin-3 Receptor Antagonist Start: 08-08-2023 Ondansetron Active MG translingual THREE TIMES A [...] Hydrocodone-Acetaminophen Discontinued 1 TABLET PO Q8H 15 March 25, 2022 May 25, 2022 8:35am [...] sources) Muscle Relaxant Start: 10-02-20 End: 03-15-20 21 take 10 mg by mouth twice daily Cyclobenzaprine Discontinued 10 MG PO TWICE A DAY October 02, 2020 12:00am March 15, 2021 4:55pm diphenhydrAMINE hydrochloride 25 mg oral tablet (20 sources) Histamine-1 Receptor Antagonist Start: 03-21-20 22 End: 05-25-20 22 take 25 mg by [...] Comment on above: Take 1 capsule by [facility] every 6 hours as needed. doxycycline hyclate 100 mg oral tablet (18 sources) Tetracycline-class Drug Start: 3 End: 4 take 1 tablet by mouth twice daily doxycycline (VIBRA-TABS) 100 mg tablet Indications: Cough, unspecified type , Chest congestion , Sinus congestion Take 1 tablet by mouth twice daily. 20 tablet 0 11/09/2022 12/28/2023 Discontinued (Other) Comment on above: Take 1 tablet by [facility] twice daily. finasteride 5 mg oral tablet (9 sources) 5-alpha Reductase Inhibitor Start: 1 End: 1 take 5 mg by mouth once daily [...] 2 tablets by mo uth with breakfast Jurtcslfnqvm-Ozwx-Bcw ic Acid (9 sources) Start: 10-02-2020 End: 03-18-2021 Awhdhxmbwwod-Ywtl-Kzjyx Acid Discontinued 1 EACH PO DAILY October 02, 2020 8:49pm March 18, 2021 1:12pm Start: 10-02-2020 End: 03-18-2021 Egmjhnpsqboq-Tvbh-Wxdjg Acid Discontinued 1 EACH PO DAILY October 02, 2020 12:00am March 18, 2021 12:12pm Start: 10-02-2020 End: 03-18-2021 Fojoxudjsbke-Telg-Jqepk Acid Discontinued 1 EACH PO DAILY October [...] atrial fibrillation] Onset: 11-19-2023 Chronic Diabetes mellitus with complications (1 source) Type 2 diabetes mellitus with hyperglycemia; Translations: [Type 2 diabetes mellitus with hyperglycemia] Onset: 05-18-2025 Chronic Diabetes mellitus without complication (20 sources) [...] [Neoplasm of uncertain behavior of skin] Onset: 04-25-2025 Episodic Osteoarthritis (20 sources) Degenerative joint disease [...] not elsewhere classified] Onset: 03-12-2025 Chronic Other lower respiratory disease (2 sources) Cough; [...] source) Illness; Translations: [Illness, unspecified] 03-23-2024 Episodic Sprains and strains (9 sources) Strain [...] Onset: 09-13-2012 Resolved: 03-12-2015 03-12-2015 Episodic Other liver diseases (1 source) Abnormal levels of other serum enzymes; Translations: [Abnormal levels of other serum enzymes] Onset: 03-01-2025 Episodic Other lower respiratory disease (8 sources) [...] acne] Onset: 08-27-2013 Resolved: 03-12-2015 03-12-2015 Episodic Residual codes; unclassified (2 sources) Illness, unspecified; Translations: [Illness] Onset: 03-24-2024 Episodic Skin and subcutaneous tissue infections (8 [...] Test Name Value Interpretation Reference Range Facility MR/BMS.[facility] 06-12-2025 MR/BMS. [place] [id number] OFFICE VISIT Date of Service: 06/12/25 MR#: [id number] Acct: [id number] Name: ZACHARY MCDERMOTT Rep #: [id number] : 1935 Provider: Dr. Vincent Alvarado se, DO Age/Sex: 89/M Location: [facility].BP Status: Signed Intake Vital Signs 04/10/25 13:38 06/12/25 16:29 Height 5 ft 10 in 5 ft 10 in Weight: 180 lb 6 oz 177 lb BMI 25.9 25.4 BP 136/83 H 135/108 H Blood Pressure Location Lt brachial Lt brachial Position Sitting Sitting Respiration 18 16 Pulse 104 H 91 Pulse Source Monitor Monitor Temp 98.2 F Temperature Source Temporal Artery Pulse Oximetry (%) 92 Oxygen Delivery Method room air BP Intake Visit Reasons: follow up Accompanied by: Allergies lactic acid (From Lac-Hydrin) Allergy (Verified 06/12/25 16:34) Rash Penicillins Allergy (Verified 06/12/25 16:34) Unknown Medications ???Medication ???Instructions ???Recorded ???Confirmed ???Type alfuzosin 10 mg tablet,extended 10 mg PO DAILY prostate 10/02/20 0 06/12/25 History release 24 hr lisinopril 40 mg tablet 40 mg PO DAILY BP 03/15/21 5 History dutasteride 0.5 mg capsule 0.5 mg PO DAILY 03/18/21 06/12/25 History multivitamin 1 tab PO DAILY 03/18/21 06/12/25 H istory apixaban 2.5 mg tablet (Eliquis) 2.5 mg PO BID Please reduce dose 0 05/18/23 06/12/25 Rx to 2.5 mg twice daily #60 tabs latanoprost 0.005 % eye drops 1 drp ophthalmic (eye) DAILY 03/2806/12/25 History melatonin 3 mg capsule 3 mg PO HS PRN 03/28/24 06/12/25 H istory levothyroxine 25 mcg tablet mcg PO DAILY 11/08/24 06/12/25 His tory insulin glargine U-300 conc 300 55 unit subcut BID 12/29/24 History unit/mL (3 mL) subcutaneous pen (Toujeo Max U-300 SoloStar) ofloxacin 0.3 % eye drops 1 drp ophthalmic (eye) 4X/DAY 12/1006/12/25 History citalopram 20 mg tablet 20 mg PO DAILY #90 tabs 04/03/25 0 06/12/25 Rx bupropion HCl 150 mg 24 hr tablet, 150 mg PO QAM #30 tabs 06/12/25 06/12/25 Rx extended release (Wellbutrin XL) Have you fallen in the past year?: Yes (slid out of bed) [facility] Medical History Memory deficit Hyperlipidemia MDD (major depressive disorder) Diabetes Chondrosarcoma of ribs Chronic eczema PAF (paroxysmal atrial fibrillation) Cholelithiasis Wears glasses Wears hearing aid Cancer Bruising Walker as ambulation aid Ambulates with cane Easy bruising High cholesterol Former smoker Hypertension Loss of peripheral visual field BPH (benign prostatic hyperplasia) Basal cell carcinoma Cryptogenic stroke 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 Patient presents for earlier appointment today secondary to worsening depression as reported by his . Remains very slow in responding to questioning today. Patient reports that he has been alright I guess. When asked what he has been doing he states I don't know. Comments that he recently slid out of bed but cannot recall how long ago this was. Feels like it was just a few night ago. Has been feeling apprehensive at night and does usually feel tired and wants to go to bed early. Does endorse feel depressed. Describes limited drive and motivation. Has been doing physical therapy which helps with staying busy. Denies any current thoughts of suicide in recent past. Son recently came and visited. Has considered moving in to assisted living as he feels like he causes problems for his . Subseuqently comments later in appointment that he doesn't feel any more depressed than he had been previously. (more content not included)... Normal [facility] Comprehensive Metabolic Prof ilon 05-14-2025 Albumin [Mass/Vol] 3.8 g/dL Normal 3.4-4.8 [facility] Comment on above: Performed By: #### L [id number], [id number] #### [facility] [address] [place], [address] Albumin/Globulin [Mass ratio] 1.5 {ratio} Normal 0.9-2.4 [facility] Comment on above: Performed By: #### L [id number], [id number] #### [facility] [address] [place], [address] ALK PHOS 88 U/L Normal 40-129 [facility] Comment on above: Performed By: #### L [id number], [id number] #### [facility] [address] [place], [address] ALT [Catalytic activity/Vol] 101 U/L High <=46 [facility] Comment on above: Performed By: #### L [id number], [id number] #### [facility] [address] [place], [address] AST [Catalytic activity/Vol] 49 U/L High <=37 [facility] Comment on above: Performed By: #### L [id number], [id number] #### [facility] [address] [place], [address] Bilirubin [Mass/Vol] 0.58 mg/dL Normal 0.00-1.30 [facility] Comment on above: Performed By: #### L [id number], [id number] #### [facility] [address] [place], [address] BUN/CRE 15.7 RATIO Normal 10-20 [facility] Comment on above: Performed By: #### L [id number], [id number] #### [facility] [address] [place], [address] Calcium [Mass/Vol] 8.7 mg/dL Normal 7.6-11.0 [facility] Comment on above: Performed By: #### L [id number], [id number] #### [facility] [address] [place], [address] Chloride [Moles/Vol] 104 mmol/L Normal 98-108 [facility] Comment on above: Performed By: #### L [id number], [id number] #### [facility] [address] [place], [address] CO2 [Moles/Vol] 22.2 mmol/L Normal 21.0-32.0 [facility] Comment on above: Performed By: #### L [id number], [id number] #### [facility] [address] [place], [address] Creatinine [Mass/Vol] 0.76 mg/dL Normal 0.70-1.20 [facility] Comment on above: Performed By: #### L [id number], [id number] #### [facility] [address] [place], [address] GAP 12 Normal 5-15 [facility] Comment on above: Performed By: #### L [id number], [id number] #### [facility] [address] [place], [address] GFR/1.73 sq M.predicted among non-blacks MDRD (S/P/Bld) [Vol rate/Area] 86 mL/min/{1.73_m2} Normal >60 [facility] Comment on above: Result Comment: mL/m in/1.73m2 CKD-EPI Creatinine Equation (2020) Performed By: #### L [id number], [id number] #### [facility] [address] [place], [address] Globulin (S) [Mass/Vol] 2.5 g/dL Normal 2.2-4.2 [facility] Comment on above: Performed By: #### L [id number], [id number] #### [facility] [address] [place], [address] Glucose [Mass/Vol] 288 mg/dL High 70-99 [facility] Comment on above: Performed By: #### L [id number], [id number] #### [facility] [address] [place], [address] Potassium [Moles/Vol] 4.0 mmol/L Normal 3.3-5.1 [facility] Comment on above: Performed By: #### L [id number], [id number] #### [facility] [address] [place], [address] Sodium [Moles/Vol] 139 mmol/L Normal 133-145 [facility] Comment on above: Performed By: #### L [id number], [id number] #### [facility] [address] [place], [address] T PROT 6.2 g/dL Normal 5.9-8.4 [facility] Comment on above: Performed By: #### L [id number], [id number] #### [facility] [address] [place], [address] Urea nitrogen [Mass/Vol] 12 mg/dL Normal 4-19 [facility] Comment on above: Performed By: #### L [id number], [id number] #### [facility] [address] [place], [address] Hemoglobin A1con 05-14-2025 HbA1c (Bld) [Mass fraction] 8.3 % High <=5.6 [facility] Comment on above: Result Comment: Norm al < 5.7 % Prediabetic 5.7 - 6.4 % Diabetic >or= 6.5 % Please note range changes. Performed By: #### L [id number], [id number] #### [facility] [address] [place], [address] CBC W/Diff, Automatedon Absolute Lymph 1.40 X10 3/uL Normal 0.83-4.51 [facility] Comment on above: Performed By: #### L [id number], [id number] #### [facility] [address] [place], [address] Absolute Neut 11.8 X10 3/uL High 2.0-7.7 [facility] Comment on above: Performed By: #### L [id number], [id number] #### [facility] [address] [place], [address] Basophils/100 WBC (Bld) 0.3 % Normal 0-1 [facility] Comment on above: Performed By: #### L [id number], [id number] #### [facility] [address] [place], [address] Eosinophils/100 WBC (Bld) 0.1 % Normal 0-5 [facility] Comment on above: Performed By: #### L [id number], [id number] #### [facility] [address] [place], [address] Erythrocyte distribution width (RBC) [Ratio] 12.8 % Normal 11.6-14.6 [facility] Comment on above: Performed By: #### L [id number], [id number] #### [facility] [address] [place], [address] Hematocrit (Bld) [Volume fraction] 39.9 % Low 40-54 [facility] Comment on above: Performed By: #### L [id number], [id number] #### [facility] [address] [place], [address] Hemoglobin (Bld) [Mass/Vol] 13.5 g/dL Normal 13.0-16.5 [facility] Comment on above: Performed By: #### L [id number], [id number] #### [facility] [address] [place], [address] IG% 0.600 Normal 0.0-0.9 [facility] Comment on above: Result Comment: IG% - Immature Granulocytes (promyelocytes, myelocytes and metamyelocytes) > 1% indicates that a LEFT SHIFT is Present. Performed By: #### L [id number], [id number] #### [facility] [address] [place], [address] Lymphocytes/100 WBC (Bld) 9.7 % Low 19-41 [facility] Comment on above: Performed By: #### L 501.9985, [id number] #### [facility] [address] [place], [address] MCH (RBC) [Entitic mass] 31.5 pg Normal 27.0-32.0 [facility] Comment on above: Performed By: #### L [id number], [id number] #### [facility] [address] [place], [address] MCHC (RBC) [Mass/Vol] 33.8 g/dL Normal 32-36 [facility] Comment on above: Performed By: #### L [id number], [id number] #### [facility] [address] [place], [address] MCV (RBC) [Entitic vol] 93.0 fL Normal 80-94 [facility] Comment on above: Performed By: #### L [id number], [id number] #### [facility] [address] [place], [address] Monocytes/100 WBC (Bld) 8.0 % Normal 0-10 [facility] Comment on above: Performed By: #### L [id number], [id number] #### [facility] [address] [place], [address] Neutrophils/100 WBC (Bld) 81.3 % High 47-70 [facility] Comment on above: Performed By: #### L [id number], [id number] #### [facility] [address] [place], [address] Nucleated RBC (Bld) [#/Vol] 0 10*3/uL Normal 0-5 [facility] Comment on above: Performed By: #### L [id number], [id number] #### [facility] [address] [place], [address] Platelet mean volume (Bld) [Entitic vol] 12.8 fL High 6.2-12.0 [facility] Comment on above: Performed By: #### L [id number], [id number] #### [facility] [address] [place], [address] Platelets (Bld) [#/Vol] 204 10*3/uL Normal 150-450 [facility] Comment on above: Performed By: #### L [id number], [id number] #### [facility] [address] [place], [address] RBC (Bld) [#/Vol] 4.29 10*6/uL Low 4.6-6.2 [facility] Comment on above: Performed By: #### L [id number], [id number] #### [facility] [address] [place], [address] RDW SD 43.5 fl Normal 35.1-43.9 [facility] Comment on above: Performed By: #### L [id number], [id number] #### [facility] [address] [place], [address] WBC (Bld) [#/Vol] 14.5 10*3/uL High 4.4-11.0 [facility] Comment on above: Performed By: #### L [id number], [id number] #### [facility] [address] [place], [address] Comprehensive Metabolic Prof [facility] 05-11-2025 Albumin [Mass/Vol] 4.0 g/dL Normal 3.4-4.8 [facility] Comment on above: Performed By: #### L [id number], [id number] #### [facility] [address] [place], [address] Albumin/Globulin [Mass ratio] 1.5 {ratio} Normal 0.9-2.4 [facility] Comment on above: Performed By: #### L [id number], [id number] #### [facility] [address] [place], [address] ALK PHOS 88 U/L Normal 40-129 [facility] Comment on above: Performed By: #### L [id number], [id number] #### [facility] [address] [place], [address] ALT [Catalytic activity/Vol] 78 U/L High <=46 [facility] Comment on above: Performed By: #### L [id number], [id number] #### [facility] [address] [place], [address] AST [Catalytic activity/Vol] 45 U/L High <=37 [facility] Comment on above: Performed By: #### L [id number], [id number] #### [facility] [address] [place], [address] Bilirubin [Mass/Vol] 0.50 mg/dL Normal 0.00-1.30 [facility] Comment on above: Performed By: #### L [id number], [id number] #### [facility] [address] [place], [address] BUN/CRE 13.9 RATIO Normal 10-20 [facility] Comment on above: Performed By: #### L [id number], [id number] #### [facility] [address] [place], [address] Calcium [Mass/Vol] 9.3 mg/dL Normal 7.6-11.0 [facility] Comment on above: Performed By: #### L [id number], [id number] #### [facility] [address] [place], [address] Chloride [Moles/Vol] 103 mmol/L Normal 98-108 [facility] Comment on above: Performed By: #### L 501.9985, [id number] #### [facility] [address] [place], [address] CO2 [Moles/Vol] 23.4 mmol/L Normal 21.0-32.0 [facility] Comment on above: Performed By: #### L [id number], [id number] #### [facility] [address] [place], [address] Creatinine [Mass/Vol] 0.86 mg/dL Normal 0.70-1.20 [facility] Comment on above: Performed By: #### L [id number], [id number] #### [facility] [address] [place], [address] GAP 12 Normal 5-15 [facility] Comment on above: Performed By: #### L [id number], [id number] #### [facility] [address] [place], [address] GFR/1.73 sq M.predicted among non-blacks MDRD (S/P/Bld) [Vol rate/Area] 83 mL/min/{1.73_m2} Normal >60 [facility] Comment on above: Result Comment: mL/m in/1.73m2 CKD-EPI Creatinine Equation (2020) Performed By: #### L [id number], [id number] #### [facility] [address] [place], [address] Globulin (S) [Mass/Vol] 2.7 g/dL Normal 2.2-4.2 [facility] Comment on above: Performed By: #### L [id number], [id number] #### [facility] [address] [place], [address] Glucose [Mass/Vol] 349 mg/dL High 70-99 [facility] Comment on above: Performed By: #### L 501.9985, L500.4050 #### [facility] [address] [place], [address] Potassium [Moles/Vol] 4.4 mmol/L Normal 3.3-5.1 [facility] Comment on above: Performed By: #### L 501.9985, L500.4050 #### [facility] [address] [place], [address] Sodium [Moles/Vol] 138 mmol/L Normal 133-145 [facility] Comment on above: Performed By: #### L 501.9985, L500.4050 #### [facility] [address] [place], [address] T PROT 6.7 g/dL Normal 5.9-8.4 [facility] Comment on above: Performed By: #### L 501.9985, L500.4050 #### [facility] [address] [place], [address] Urea nitrogen [Mass/Vol] 12 mg/dL Normal 4-19 [facility] Comment on above: Performed By: #### L 501.9985, L500.4050 #### [facility] [address] [place], [address] Lipid Profileon 05-11-2025 CHOL:HDL 2.18 Normal [facility] Comment on above: Performed By: #### L 501.9985, L500.4050 #### [facility] [address] [place], [address] Cholesterol [Mass/Vol] 88 mg/dL Normal <=200 [facility] Comment on above: Result Comment: Chol esterol level, Desirable <200 mg/dL Borderline high cholesterol 200-239 mg/dL High cholesterol >=240 mg/dL Recommendations of the NCEP Adult Treatment Panel for the following risk-cutoff thresholds for the [place] population. Performed By: #### L 501.9985, L500.4050 #### [facility] [address] [place], [address] Cholesterol in HDL [Mass/Vol] 40 mg/dL Normal [facility] Comment on above: Result Comment: Padmini onal Cholesterol Education Program (NCEP) guidelines: <40 mg/dL: Low HDL-cholesterol (major risk factor for CHD) >= 60 mg/dL: High HDL-cholesterol (negative risk factor for CHD) HDL-cholesterol is affected by a number of factors, e.g. smoking, exercise, hormones, sex and age. Performed By: #### L 501.9985, L500.4050 #### [facility] [address] [place], [address] Cholesterol in LDL [Mass/Vol] 31 mg/dL Normal [facility] Comment on above: Result Comment: Bord tlydfq=315-974 mg/dL Higher Szhv=437 mg/dL or greater Friedwald Equation for LDL-C Performed By: #### L 501.9985, L500.4050 #### [facility] [address] [place], [address] Cholesterol in VLDL [Mass/Vol] 17 mg/dL Normal 5-40 [facility] Comment on above: Performed By: #### L 501.9985, L500.4050 #### [facility] [address] [place], [address] Triglyceride [Mass/Vol] 85 mg/dL Normal [facility] Comment on above: Result Comment: The drugs N-Acetylcysteine and Metamizole may falsely depress this assay. Normal range: <150 mg/dL Borderline High: 150-199 mg/dL High: 200-499 mg/dL Very High: >500 mg/dL Performed By: #### L 501.9985, L500.4050 #### [facility] [address] [place], [address] Microalb:Creat Ratio,Random URon 05-11-2025 Creatinine [Mass/Vol] 89.90 mg/dL Normal 39.00-259.00 [facility] Comment on above: Performed By: #### L 501.9985, L500.4050 #### [facility] [address] [place], [address] MALB:CREAT UNABLE TO CALCULATE Normal <30 mg/g CRE [facility] Comment on above: Performed By: #### L 501.9985, L500.4050 #### [facility] [address] [place], [address] MICROALBUMIN,UR < 12.0 Normal <20 mg/L [facility] Comment on above: Performed By: #### L 501.9985, L500.4050 #### [facility] [address] [place], [address] Thyroid Stim Hormone (TSH)on 05-11-2025 TSH 2.910 uIU/mL Normal 0.300-4.200 [facility] Comment on above: Performed By: #### L 501.9985, L500.4050 #### [facility] [address] [place], [address] Vitamin D,25 Hydroxyon 05-11 Vitamin D 25-OH 12.9 ng/mL Low 30-100 [facility] Comment on above: Result Comment: Sharonda min D Status Deficiency: <20 ng/mL (50nmol/L) Insufficiency: 20-30 ng/mL (50-75 nmol/L) Sufficiency: 30-100 ng/mL (75-250 nmol/L) Toxicity: >100 ng/mL (>250 nmol/L) Performed By: #### L 501.9985, L500.4050 #### [facility] [address] [place], [address] Wrist min 3 Viewson 05-11-20 25 Wrist min 3 Views [facility] Imaging Services [address] [place] [address] Wrist min 3 Views MR#: [id number] Acct: [id number] Name: ZACHARY MCDERMOTT Rep #: [id number] : 1935 M 89 From: Emilia Noel MD PCP: Dr. Sandoval Montalvo MD Status: REG CLI Study: Wrist min 3 Views Date of Exam: 05/11/25 Exam# [id number] Ordering Dr: Sandoval Montalvo MD EXAM: XR Right Wrist Complete, 3 or More Views CLINICAL INDICATION: RIGHT WRIST PAIN TECHNIQUE: Frontal, lateral and oblique views of the right wrist. COMPARISON: No relevant prior studies available. FINDINGS: BONES/JOINTS: See below. SOFT TISSUES: Soft tissue swelling without acute fracture. No radiopaque foreign body. RAD/Wrist min 3 Views IMPRESSION: 1. Soft tissue swelling without acute fracture. 2. If symptoms persist, further evaluation with CT is recommended. Reading Location: [id number] CC: Dr. Sandoval Montalvo MD Product Safety Technical Assistant: Signed Normal [facility] Radiation Oncology Visiton 0 04-10-2025 Radiation Oncology Visit [facility] [address] [place] [address]. [place] [address] OFFICE VISIT Date of Service: 04/10/25 1336 MR#: [id number] Acct: [id number] Name: ZACHARY MCDERMOTT Rep #: [id number] : 1935 From: Andres Shipley DO Age/Sex: 89/M Location: [facility] Status: Signed with Addenda Intake Vital Signs 01/08/25 09:50 04/03/25 09:56 04/10/25 13:38 Height 5 ft 10 in 5 ft 10 in 5 ft 10 in Weight: 180 lb 180 lb 6 oz BMI 25.8 25.9 BP 131/84 H 136/83 H Blood Pressure Location Lt brachial Lt brachial Position Sitting Sitting Respiration 18 18 Pulse 93 104 H Pulse Source Monitor Monitor Temp 98.2 F Temperature Source Temporal Artery Pulse Oximetry (%) 92 Oxygen Delivery Method room air Intake Visit Reasons: 3 MONTH F/U, REVIEW CT Is patient in pain?: No Allergies lactic acid (From Lac-Hydrin) Allergy (Verified 04/10/25 13:42) Rash Penicillins Allergy (Verified 04/10/25 13:42) Unknown Medications ???Medication ???Instructions ???Recorded ???Confirmed ???Type alfuzosin 10 mg tablet,extended 10 mg PO DAILY prostate 10/02/20 0 04/10/25 History release 24 hr atorvastatin 80 mg tablet 80 mg PO QHS 03/15/21 04/10/25 His tory lisinopril 40 mg tablet 40 mg PO DAILY BP 03/15/21 5 History dutasteride 0.5 mg capsule 0.5 mg PO DAILY 03/18/21 04/10/25 History multivitamin 1 tab PO DAILY 03/18/21 04/10/25 H istory apixaban 2.5 mg tablet (Eliquis) 2.5 mg PO BID Please reduce dose 0 05/18/23 04/10/25 Rx to 2.5 mg twice daily #60 tabs latanoprost 0.005 % eye drops 1 drp ophthalmic (eye) DAILY 03/2804/10/25 History melatonin 3 mg capsule 3 mg PO HS PRN 03/28/24 04/10/25 H istory levothyroxine 25 mcg tablet mcg PO DAILY 11/08/24 04/10/25 His tory insulin glargine U-300 conc 300 55 unit subcut BID 12/29/24 History unit/mL (3 mL) subcutaneous pen (Toujeo Max U-300 SoloStar) ofloxacin 0.3 % eye drops 1 drp ophthalmic (eye) 4X/DAY 12/1004/10/25 History citalopram 20 mg tablet 20 mg PO DAILY #90 tabs 04/03/25 0 04/10/25 Rx Have you fallen in the past year?: No PFSH PFSH Medical History Memory deficit Hyperlipidemia MDD (major depressive disorder) Diabetes Chondrosarcoma of ribs Chronic eczema PAF (paroxysmal atrial fibrillation) Cholelithiasis Wears glasses Wears hearing aid Cancer Bruising Walker as ambulation aid Ambulates with cane Easy bruising High cholesterol Former smoker Hypertension Loss of peripheral visual field BPH (benign prostatic hyperplasia) Basal cell carcinoma Cryptogenic stroke History of ischemic right 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) Essential (primary) hypertension Left arm weakness Facial droop Dysarthria Acute ischemic stroke Chronic back pain Home Medications ???Medication ???Instructions ???Recorded ???Last Taken ???Type alfuzosin 10 mg tablet,extended 10 mg PO DAILY prostate 10/02/20 0 03/20/22 History release 24 hr atorvastatin 80 mg tablet 80 mg PO QHS 03/15/21 03/20/22 His tory lisinopril 40 mg tablet 40 mg PO DAILY BP 03/15/21 2 History dutasteride 0.5 mg capsule 0.5 mg PO DAILY 03/18/21 03/20/22 History multivitamin 1 tab PO DAILY 03/18/21 03/20/22 H istory apixaban 2.5 mg tablet (Eliquis) 2.5 mg PO BID Please reduce dose 0 05/18/23 Unknown Rx to 2.5 mg twice daily #60 tabs latanoprost 0.005 % eye drops 1 drp ophthalmic (eye) DAILY 03/28 Unknown History melatonin 3 mg capsule 3 mg PO HS PRN 03/28/24 Unknown Hi story levothyroxine 25 mcg tablet mcg PO DAILY 11/08/24 Unknown Hist ory insulin glargine U-300 conc 300 55 unit subcut BID 12/29/24 Unknow n History unit/mL (3 mL) subcutaneous pen (Toujeo Max U-300 SoloStar) ofloxacin 0.3 % eye drops 1 drp ophthalmic (eye) 4X/DAY 12/10 11/04 Unknown History citalopram 20 mg tablet 20 mg PO DAILY #90 tabs 04/03/25 U nknown Rx Allergy/AdvReac Type Severity Reaction Status Date / Time lactic acid (From Lac-Hydrin) Allergy Rash Verified 04/10/25 13:42 Penicillins Allergy Unknown Verified 04/10/25 13:42 Family History Sister Ovarian cancer Diabetes old age onset Mother Basal cell carcinoma Father CHF (congestive heart failure) Diabetes old age onset Grandfather Diabetes old age onset Surgical History History of shoulder surgery Status post laparoscopic cholecystectomy H/O basal cell carcinoma excision Social History household members: spouse current occupational exposures/hazards: No Smoking Status: Former smoker pack-years: 20 Tobacco: How many years used (more content not included)... Normal [facility] Plastic Surgery Visit Report on 04-08-2025 Plastic Surgery Visit Report [facility] [address], [address] [place] [address] OFFICE VISIT Date of Service: 04/06/25 MR#: [id number] Acct: [id number] Name: ZACHARY MCDERMOTT Rep #: [id number] : 1935 Provider: Dr. Edgar Carr MD Age/Sex: 89/M Location: [facility] Status: Signed Intake Vital Signs 03/22/25 13:37 04/03/25 09:56 04/06/25 15:16 Height 5 ft 10 in 5 ft 10 in Weight: 180 lb BMI 25.8 BP 131/84 H 155/78 H Blood Pressure Location Lt brachial Rt brachial Position Sitting Sitting Respiration 18 18 Pulse 93 76 Pulse Source Monitor Monitor Pulse Oximetry (%) 93 Oxygen Delivery Method room air Intake Visit Reasons: 1 W FU Chief Complaint: Skin lesion right lateral arm lesion Allergies lactic acid (From Lac-Hydrin) Allergy (Verified 04/06/25 15:10) Rash Penicillins Allergy (Verified 04/06/25 15:10) Unknown Medications ???Medication ???Instructions ???Recorded ???Confirmed ???Type alfuzosin 10 mg tablet,extended 10 mg PO DAILY prostate 10/02/20 0 04/06/25 History release 24 hr atorvastatin 80 mg tablet 80 mg PO QHS 03/15/21 04/06/25 His tory lisinopril 40 mg tablet 40 mg PO DAILY BP 03/15/21 5 History dutasteride 0.5 mg capsule 0.5 mg PO DAILY 03/18/21 04/06/25 History multivitamin 1 tab PO DAILY 03/18/21 04/06/25 H istory apixaban 2.5 mg tablet (Eliquis) 2.5 mg PO BID Please reduce dose 0 05/18/23 04/06/25 Rx to 2.5 mg twice daily #60 tabs latanoprost 0.005 % eye drops 1 drp ophthalmic (eye) DAILY 03/2804/06/25 History melatonin 3 mg capsule 3 mg PO HS PRN 03/28/24 04/06/25 H istory levothyroxine 25 mcg tablet mcg PO DAILY 11/08/24 04/06/25 His tory insulin glargine U-300 conc 300 55 unit subcut BID 12/29/24 History unit/mL (3 mL) subcutaneous pen (Tousadiqo Max U-300 SoloStar) ofloxacin 0.3 % eye drops 1 drp ophthalmic (eye) 4X/DAY 12/1004/06/25 History citalopram 20 mg tablet 20 mg PO DAILY #90 tabs 04/03/25 0 04/06/25 Rx Have you fallen in the past [...] carcinoma Cryptogenic stroke History of ischemic right 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) Essential (primary) hypertension Left arm [...] (Occasionally, drinks mostly caffeine free beverages) HPI 1 W FU Details: The patient is an 89-year-old male presenting with the need for suture removal from a right arm incision. The incision was noted to be clean, dry, and intact, indicating good healing progress. The patient has been under the care of Dr. Lomax for dermatological concerns, with recent visits addressing various skin spots. Continued follow-up with dermatology is recommended to manage and monitor skin conditions. Attestation: Documentation on this patient encounter was supported using ambient scribe technology/ voice AI technology. The patient consented to recording for the purpose of documenting the encounter. Provider reviewed content of the generated note prior to signature. Exam Details - Right arm: Incision clean, dry, and intact - General: Well-healed surgical site Coding Level of Care Code Off vis,est,level 3 Diagnoses Neoplasm of uncertain behavior of skin D48.5 Assessment and Plan (No Qualifiers) Assessment and Plan (1) Neoplasm of uncertain behavior of skin: Status: Acute Comment: Right lat (more content not included)... Normal [facility] CREATININE FINGERSTICKon CREATININE WB < 1.0 Normal 0.70-1.30 [facility] Comment on above: Performed By: #### L 100.0100 #### [facility] [address] [place], [address] EGFR WB > 60.0000 Normal >60 [facility] Comment on above: Performed By: #### L 100.0100 #### [facility] [address] [place], [address] Chest WITH Contraston 2024 Chest WITH Contrast [facility] Imaging Services [address] [place] [address] Chest WITH Contrast MR#: [id number] Acct: [id number] Name: ZACHARY MCDERMOTT Rep #: [id number] : 1935 M 89 From: Anna diggs MD PCP: Dr. Sandoval Montalvo MD Status: REG CLI Study: Chest WITH Contrast Date of Exam: 04/05/25 Exam# [id number] Ordering Dr: Andres Shipley DO PROCEDURE: CHEST WITH CONTRAST 04/05/2025 REASON FOR EXAM: FOLLOW UP CW SARCOMA TECHNIQUE: CHEST WITH CONTRAST Coronal and Sagittal reconstruction series were provided. CONTRAST: Isovue-300 VOLUME: 99 mL One or more dose reduction techniques were used (e.g., Automated exposure control, adjustment of the mA and/or kV according to patient size, use of iterative reconstruction technique). RADIATION DOSE SUMMARY: CTDlvol: 13.67 mGy DLP: 519.15 mGycm COMPARISON: 01/03/2025. FINDINGS: FINDINGS: Normal enhancement of the main pulmonary artery and right and left pulmonary arteries. Normal enhancement of the bilateral peripheral pulmonary arteries. There is no demonstrated pulmonary embolism. Normal thoracic aorta and visualized great vessels. There is no demonstrated aortic dissection. Normal heart and pericardium. Normal mediastinum. Normal hilar regions. Normal visualized trachea and bronchi. The lungs are well expanded. Normal pulmonary parenchyma. Previously described right anterior chest wall soft tissue mass eroding into the underlying ribs and sternum again seen, essentially unchanged measuring 8.7 x 8.2 cm in axial dimension. The mass extends posteriorly into the anterior aspect of the right pleural cavity. Normal osseous structures. In the abdomen, the visualized liver is normal in size and density. Gallbladder is not visualized. The pancreas is atrophic with multiple calcifications consistent with chronic pancreatitis. CT/Chest WITH Contrast IMPRESSION: Stable right anterior chest wall mass as described above. No change since the prior exam. Findings of chronic pancreatitis. Reading Location: [place] [address] CC: Dr. Andres Shipley DO; Dr. Sandoval Montalvo MD Product Safety Technical Assistant: Signed Normal [facility] MR/BMS.BPon 04-03-2025 MR/BMS.BP [address], [address] [place] [address] OFFICE VISIT Date of Service: 04/03/25 MR#: [id number] Acct: [id number] Name: ZACHARY MCDERMOTT Rep #: [id number] : 1935 Provider: Dr. 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 Does live at [facility] in independent living with his . Health has been fairly stable. Does still feel tired intermittently. Does feel tired after having to walk in to office. Reports he generally doesn't walk as much at his home at [place]. Denies any problems with medication at this [...] fever(s), ch (more content not included)... Normal [facility] Plastic Surgery Visit Report on 03-29-2025 Plastic Surgery Visit Report [facility]astic [facility]constructive Surgery [address], [address] [place] [address] OFFICE VISIT Date of Service: 03/29/25 MR#: [id number] Acct: [id number] Name: ZACHARY MCDERMOTT Rep #: [id number] : 1935 Provider: Dr. Edgar Carr MD Age/Sex: 89/M Location: [facility] Status: Signed Intake Vital Signs 03/22/25 [...] Neoplasm of uncertain behavior of skin D48.5 [facility] Medical History Memory deficit Hyperlipidemia MDD (major depressive disorder) Diabetes Chondrosarcoma of ribs Chronic eczema PAF (paroxysmal atrial fibrillation) Cholelithiasis Wears glasses Wears hearing aid Cancer Bruising Walker as ambulation aid Ambulates with cane Easy bruising High cholesterol Former smoker Hypertension Loss of peripheral visual field BPH (benign prostatic hyperplasia) Basal cell carcinoma Cryptogenic stroke History of ischemic right 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 Normal [facility] Plastic Surgery Visit Report on 03-22-2025 Plastic Surgery Visit Report [facility]astic [facility] Surgery [address], [address] [place] [address] OFFICE VISIT Date of Service: 03/22/25 MR#: [id number] Acct: [id number] Name: ZACHARY MCDERMOTT Rep #: [id number] : 1935 Provider: Dr. Edgar aCrr MD Age/Sex: 89/M Location: [facility] Status: Signed Intake Vital Signs 3 02/19/25 [...] office procedure, excisin right lateral forearm lesion [facility] Medical History Memory deficit Hyperlipidemia MDD (major depressive disorder) Diabetes Chondrosarcoma of ribs Chronic eczema PAF (paroxysmal atrial fibrillation) Cholelithiasis Wears glasses Wears hearing aid Cancer Bruising Walker as ambulation aid Ambulates with cane Easy bruising High cholesterol Former smoker Hypertension Loss of peripheral visual field BPH (benign prostatic hyperplasia) Basal cell carcinoma Cryptogenic stroke History of ischemic right 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 [id number] lot lt 2695 exp Zachary Mcdermott is [...] of s (more content not included)... Normal [facility] Surgery Specimen Level Kenneth 03-22-2025 Surgery Specimen Level IV Patient Age/Sex Location Account Attending Physician ZACHARY MCDERMOTT 89/M [facility] [id number] Dr. Edgar Carr MD Specimen: [id number] Received: 03/22/25 Status: ULICES Alfred Num: [id number] Spec Type: Lesion Subm Dr: Dr. Edgar [...] follows: Anterior half (deep) -greenPosterior half (deep) -blackProximal-redDistal -blue Eccentrically on the epidermal surface is a 0.3 x 0.2 cm pink-red, slightly raised lesion located the following distances from the margins: Anterior-0.8 cmPosterior-0.5 cmProximal-0.6 cmDistal-0.4 cmDeep-0.4 cm The specimen is serially sectioned from anterior to posterior and sequentially in 2 cassettes as follows:A1: Anterior halfA2: Posterior half, including the entirety of the lesion [place] 03/23/2024 CPT: 72287 Patient Age/Sex Location Account Attending Physician ZACHARY MCDERMOTT 89/M [facility] [id number] Dr. Edgar Carr MD Signed (signature on file) Dr. Pratima Odom MD 03/28/25 0920 Normal [facility] Comment on above: Performed By: #### L 100.0100 #### [facility] [address] [place], [place], [id number] CBC W/Diff, Automatedon 06-0 -2024 Absolute Lymph 1.32 X10 3/uL Normal 0.83-4.51 [facility] Comment on above: Performed By: #### L 100.0100 #### [facility] [address] [place], [address] Absolute Neut 5.4 X10 3/uL Normal 2.0-7.7 [facility] Comment on above: Performed By: #### L 100.0100 #### [facility] [address] [place], [address] Basophils/100 WBC (Bld) 0.9 % Normal 0-1 [facility] Comment on above: Performed By: #### L 100.0100 #### [facility] [address] [place], [address] Eosinophils/100 WBC (Bld) 1.8 % Normal 0-5 [facility] Comment on above: Performed By: #### L 100.0100 #### [facility] [address] [place], [address] Erythrocyte distribution width (RBC) [Ratio] 12.7 % Normal 11.6-14.6 [facility] Comment on above: Performed By: #### L 100.0100 #### [facility] [address] [place], [address] Hematocrit (Bld) [Volume fraction] 40.6 % Normal 40-54 [facility] Comment on above: Performed By: #### L 100.0100 #### [facility] [address] [place], [address] Hemoglobin (Bld) [Mass/Vol] 13.4 g/dL Normal 13.0-16.5 [facility] Comment on above: Performed By: #### L 100.0100 #### [facility] [address] [place], [address] IG% 0.500 Normal 0.0-0.9 [facility] Comment on above: Result Comment: IG% - Immature Granulocytes (promyelocytes, myelocytes and metamyelocytes) > 1% indicates that a LEFT SHIFT is Present. Performed By: #### L 100.0100 #### [facility] [address] [place], [address] Lymphocytes/100 WBC (Bld) 17.3 % Low 19-41 [facility] Comment on above: Performed By: #### L 100.0100 #### [facility] [address] [place], [address] MCH (RBC) [Entitic mass] 30.7 pg Normal 27.0-32.0 [facility] Comment on above: Performed By: #### L 100.0100 #### [facility] [address] [place], [address] MCHC (RBC) [Mass/Vol] 33.0 g/dL Normal 32-36 [facility] Comment on above: Performed By: #### L 100.0100 #### [facility] [address] [place], [address] MCV (RBC) [Entitic vol] 93.1 fL Normal 80-94 [facility] Comment on above: Performed By: #### L 100.0100 #### [facility] [address] [place], [address] Monocytes/100 WBC (Bld) 8.8 % Normal 0-10 [facility] Comment on above: Performed By: #### L 100.0100 #### [facility] [address] [place], [address] Neutrophils/100 WBC (Bld) 70.7 % High 47-70 [facility] Comment on above: Performed By: #### L 100.0100 #### [facility] [address] [place], [address] Nucleated RBC (Bld) [#/Vol] 0 10*3/uL Normal 0-5 [facility] Comment on above: Performed By: #### L 100.0100 #### [facility] [address], [address] Platelet mean volume (Bld) [Entitic vol] 12.0 fL Normal 6.2-12.0 [facility] Comment on above: Performed By: #### L 100.0100 #### [facility] [address] [place], [address] Platelets (Bld) [#/Vol] 199 10*3/uL Normal 150-450 [facility] Comment on above: Performed By: #### L 100.0100 #### [facility] [address] [place], [address] RBC (Bld) [#/Vol] 4.36 10*6/uL Low 4.6-6.2 [facility] Comment on above: Performed By: #### L 100.0100 #### [facility] [address] [place], [address] RDW SD 43.6 fl Normal 35.1-43.9 [facility] Comment on above: Performed By: #### L 100.0100 #### [facility] [address] [place], [address] WBC (Bld) [#/Vol] 7.7 10*3/uL Normal 4.4-11.0 [facility] Comment on above: Performed By: #### L 100.0100 #### [facility] [address] [place], [address] Elastography Parenchyma/Orga non 03-06-2025 Elastography Parenchyma/Organ [facility] Imaging Services [address] [place] [address] Elastography Parenchyma/Organ MR#: [id number] Acct: [id number] Name: ZACHARY MCDERMOTT (Jim) Rep #: [id number] : 1935 M 89 From: Emilia Vargas MD PCP: Dr. Sandoval Montalvo MD Status: REG CLI Study: Elastography Parenchyma/Organ Date of Exam: Exam# [id number] Ordering Dr: Sandoval Montalvo MD PROCEDURE: ELASTOGRAPHY PARENCHYMA/ORGAN, 03/06/2025 REASON FOR EXAM: FATTY LIVER, ELEVATED LIVER ENZYMES COMPARISON: 03/20/2022 TECHNIQUE: Elastography was performed for non-invasive assessment of liver tissue stiffness utilizing a [employer] S-shear wave imaging unit. FINDINGS: Number of [...] (15kPa): Significant fibrosis / cirrhosis Reading Location: [id number] CC: Dr. Sandoval Montalvo MD Product Safety Technical Assistant: Signed Normal [facility] Abdomen Limitedon 02-20-2025 Abdomen Limited [facility] Imaging Services [address] [place] [address] Abdomen Limited MR#: [id number] Acct: [id number] Name: ZACHARY MCDERMOTT (Jim) UVALDO Rep #: [id number] : 1935 M 89 From: Ashkan barrett MD PCP: Dr. Sandoval Montalvo MD Status: REG CLI Study: Abdomen Limited Date of Exam: 02/20/25 Exam# [id number] Ordering Dr: Sandoval Montalvo MD PROCEDURE: ABDOMEN [...] cholecystectomy. Heterogeneous appearance of the Reading Location: [id number] CC: Dr. Sandoval Montalvo MD Product Safety Technical Assistant: Signed Normal [facility] Plastic Surgery Visit Report on 02-19-2025 Plastic Surgery Visit Report [facility] Plastic Reconstructive Surgery [address] [facility], [address] [place] [id number] OFFICE VISIT Date of Service: 02/19/25 MR#: [id number] Acct: [id number] Name: ZACHARY MCDERMOTT (Jim) UVALDO Rep #: [id number] : 1935 Provider: Dr. Edgar Carr MD Age/Sex: 89/M Location: [facility] Status: Signed Intake Vital Signs 3 01/08/25 [...] it was a scab he picked off. 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 Normal [facility] Surgery Specimen Level Knen[place] 02-19-2025 Surgery Specimen Level IV Patient Age/Sex Location Account Attending Physician ZACHARY MCDERMOTT 89/M LABSPEC [id number] Dr. Edgar Carr MD Specimen: Received: 02/19/25 Status: ULICES Alfred Num: [id number] Spec Type: Lesion Subm Dr: Dr. Edgar [...] signed by Dr Caleb Odom for Dr Peggy Mcfarlane. MICROSCOPIC DESCRIPTION Slides are reviewed. GROSS [...] the deep margin. Submitted entirely in A1. [facility] 02-[facility]-2025 [facility]:[id number] Patient Age/Sex Location Account Attending Physician TOREYZACHARYPeggy BAILON 89/M LABSPEC [id number] Dr. Edgar Carr MD Signed (signature on file) Dr. Pratima Odom MD 04/03/251654 Normal [facility] Comment on above: Performed By: #### L 501.9985, L500.4050 #### [facility] [address] [place], [address] Hepatitis Panel Acuteon 05-0 COMMENT Comment Normal . [facility] Comment on above: Result Comment: Not infected with HCV unless early or acute infection is suspected (which may be delayed in an immunocompromised individual), or other evidence exists to indicate HCV infection. Performed at: [address] [id number] [employer]alant Mixer: Tom Dos Santos PhD, Phone: [phone] Performed By: #### L 3000.0375 #### [facility] [address] [place], [address] HEP B CORE,IgM Negative Normal Negative [facility] Comment on above: Performed By: #### L 3000.0375 #### [facility] [address] [place], [address] HEP B SURF AG Negative Normal Negative [facility] Comment on above: Performed By: #### L 3000.0375 #### [facility] [address] [place], [address] HEP C VIRUS AB Non-Reactive Normal Non Reactive [facility] Comment on above: Performed By: #### L 3000.0375 #### [facility] [address] [place], [address] HEPATITIS A-IgM Negative Normal Negative [facility] Comment on above: Result Comment: A ne gative anti-HAV IgM result suggests no recent or current HAV infection. Performed By: #### L 3000.0375 #### [facility] [address] [place], [place], [facility] CBC W/Diff, Automatedon 05-0 1-5 Absolute Lymph 1.52 X10 3/uL Normal 0.83-4.51 [facility] Comment on above: Performed By: #### L 500.4050, L506.1001, L100.0100, L501.9520 #### [facility] [address] [place], [address] Absolute Neut 5.6 X10 3/uL Normal 2.0-7.7 [facility] Comment on above: Performed By: #### L 500.4050, L506.1001, L100.0100, L501.9520 #### [facility] [address] [place], [address] Basophils/100 WBC (Bld) 1.0 % Normal 0-1 [facility] Comment on above: Performed By: #### L 500.4050, L506.1001, L100.0100, L501.9520 #### [facility] [address] [place], [address] Eosinophils/100 WBC (Bld) 1.7 % Normal 0-5 [facility] Comment on above: Performed By: #### L 500.4050, L506.1001, L100.0100, L501.9520 #### [facility] [address] [place], [address] Erythrocyte distribution width (RBC) [Ratio] 12.9 % Normal 11.6-14.6 [facility] Comment on above: Performed By: #### L 500.4050, L506.1001, L100.0100, L501.9520 #### [facility] [address] [place], [address] Hematocrit (Bld) [Volume fraction] 41.5 % Normal 40-54 [facility] Comment on above: Performed By: #### L 500.4050, L506.1001, L100.0100, L501.9520 #### [facility] [address] [place], [address] Hemoglobin (Bld) [Mass/Vol] 13.7 g/dL Normal 13.0-16.5 [facility] Comment on above: Performed By: #### L 500.4050, L506.1001, L100.0100, L501.9520 #### [facility] [address] [place], [address] IG% 0.500 Normal 0.0-0.9 [facility] Comment on above: Result Comment: IG% - Immature Granulocytes (promyelocytes, myelocytes and metamyelocytes) > 1% indicates that a LEFT SHIFT is Present. Performed By: #### L 500.4050, L506.1001, L100.0100, L501.9520 #### [facility] [address] [place], [address] Lymphocytes/100 WBC (Bld) 18.6 % Low 19-41 [facility] Comment on above: Performed By: #### L 500.4050, L506.1001, L100.0100, L501.9520 #### [facility] [address] [place], [address] MCH (RBC) [Entitic mass] 30.4 pg Normal 27.0-32.0 [facility] Comment on above: Performed By: #### L 500.4050, L506.1001, L100.0100, L501.9520 #### [facility] [address] [place], [address] MCHC (RBC) [Mass/Vol] 33.0 g/dL Normal 32-36 [facility] Comment on above: Performed By: #### L 500.4050, L506.1001, L100.0100, L501.9520 #### [facility] [address] [place], [address] MCV (RBC) [Entitic vol] 92.2 fL Normal 80-94 [facility] Comment on above: Performed By: #### L 500.4050, L506.1001, L100.0100, L501.9520 #### [facility] [address] [place], [address] Monocytes/100 WBC (Bld) 9.7 % Normal 0-10 [facility] Comment on above: Performed By: #### L 500.4050, L506.1001, L100.0100, L501.9520 #### [facility] [address] [place], [address] Neutrophils/100 WBC (Bld) 68.5 % Normal 47-70 [facility] Comment on above: Performed By: #### L 500.4050, L506.1001, L100.0100, L501.9520 #### [facility] [address] [place], [address] Nucleated RBC (Bld) [#/Vol] 0 10*3/uL Normal 0-5 [facility] Comment on above: Performed By: #### L 500.4050, L506.1001, L100.0100, L501.9520 #### [facility] [address] [place], [address] Platelet mean volume (Bld) [Entitic vol] 12.9 fL High 6.2-12.0 [facility] Comment on above: Performed By: #### L 500.4050, L506.1001, L100.0100, L501.9520 #### [facility] [address] [place], [address] Platelets (Bld) [#/Vol] 203 10*3/uL Normal 150-450 [facility] Comment on above: Performed By: #### L 500.4050, L506.1001, L100.0100, L501.9520 #### [facility] [address] [place], [address] RBC (Bld) [#/Vol] 4.50 10*6/uL Low 4.6-6.2 [facility] Comment on above: Performed By: #### L 500.4050, L506.1001, L100.0100, L501.9520 #### [facility] [address] [place], [address] RDW SD 43.5 fl Normal 35.1-43.9 [facility] Comment on above: Performed By: #### L 500.4050, L506.1001, L100.0100, L501.9520 #### [facility] [address] [place], [address] WBC (Bld) [#/Vol] 8.2 10*3/uL Normal 4.4-11.0 [facility] Comment on above: Performed By: #### L 500.4050, L506.1001, L100.0100, L501.9520 #### [facility] [address] [place], [address] Comprehensive Metabolic Prof coon 02-08-2025 Albumin [Mass/Vol] 3.9 g/dL Normal 3.4-4.8 [facility] Comment on above: Performed By: #### L 501.9520 #### [facility] [address] [place], [address] Albumin/Globulin [Mass ratio] 1.4 {ratio} Normal 0.9-2.4 [facility] Comment on above: Performed By: #### L 501.9520 #### [facility] [address] [place], [address] ALK PHOS 73 U/L Normal 40-129 [facility] Comment on above: Performed By: #### L 501.9520 #### [facility] [address] [place], [address] ALT [Catalytic activity/Vol] 71 U/L High <=46 [facility] Comment on above: Result Comment: Hemo lysis present, Results??could be affected. ?? Performed By: #### L 501.9520 #### [facility] [address] [place], [address] AST [Catalytic activity/Vol] 49 U/L High <=37 [facility] Comment on above: Result Comment: Hemo lysis present, Results??could be affected. ?? Performed By: #### L 501.9520 #### [facility] [address] [place], [address] Bilirubin [Mass/Vol] 0.51 mg/dL Normal 0.00-1.30 [facility] Comment on above: Performed By: #### L 496.9520 #### [facility] [address] [place], [address] BUN/CRE 8.2 RATIO Low 10-20 [facility] Comment on above: Performed By: #### L 501.9520 #### [facility] [address] [place], [address] Calcium [Mass/Vol] 8.8 mg/dL Normal 7.6-11.0 [facility] Comment on above: Performed By: #### L 501.9520 #### [facility] [address] [place], [address] Chloride [Moles/Vol] 107 mmol/L Normal 98-108 [facility] Comment on above: Performed By: #### L 501.95 #### [facility] [address] [place], [address] CO2 [Moles/Vol] 23.3 mmol/L Normal 21.0-32.0 [facility] Comment on above: Performed By: #### L 501.9520 #### [facility] [address] [place], [address] Creatinine [Mass/Vol] 1.02 mg/dL Normal 0.70-1.20 [facility] Comment on above: Performed By: #### L 501.9520 #### [facility] [address] [place], [address] GAP 11 Normal 5-15 [facility] Comment on above: Performed By: #### L 501.9520 #### [facility] [address] [place], [address] GFR/1.73 sq M.predicted among non-blacks MDRD (S/P/Bld) [Vol rate/Area] 70 mL/min/{1.73_m2} Normal >60 [facility] Comment on above: Result Comment: mL/m in/1.73m2 CKD-EPI Creatinine Equation (2020) Performed By: #### L 344.1887 #### [facility] [address] [place], [address] Globulin (S) [Mass/Vol] 2.7 g/dL Normal 2.2-4.2 [facility] Comment on above: Performed By: #### L 501.9520 #### [facility] [address] [place], [address] Glucose [Mass/Vol] 266 mg/dL High 70-99 [facility] Comment on above: Performed By: #### L 501.9520 #### [facility] [address] [place], [address] Potassium [Moles/Vol] 4.4 mmol/L Normal 3.3-5.1 [facility] Comment on above: Result Comment: Hemo lysis present, Results??could be affected. ?? Performed By: #### L 501.9520 #### [facility] [address] [place], [address] Sodium [Moles/Vol] 140 mmol/L Normal 133-145 [facility] Comment on above: Performed By: #### L 501.9520 #### [facility] [address] [place], [address] T PROT 6.7 g/dL Normal 5.9-8.4 [facility] Comment on above: Performed By: #### L 501.9520 #### [facility] [address] [place], [address] Urea nitrogen [Mass/Vol] 8 mg/dL Normal 4-19 [facility] Comment on above: Performed By: #### L 501.9520 #### [facility] [address] [place], [address] Thyroid Stim Hormone (TSH)on 02-08-2025 TSH 2.360 uIU/mL Normal 0.300-4.200 [facility] Comment on above: Performed By: #### L 501.9520 #### [facility] [address] [place], [address] Vitamin D,25 Hydroxyon 02-08 Vitamin D 25-OH 10.3 ng/mL Low 30-100 [facility] Comment on above: Result Comment: Sharonda min D Status Deficiency: <20 ng/mL (50nmol/L) Insufficiency: 20-30 ng/mL (50-75 nmol/L) Sufficiency: 30-100 ng/mL (75-250 nmol/L) Toxicity: >100 ng/mL (>250 nmol/L) Performed By: #### L 501.9520 #### [facility] [address] [place], [address] MR/BMS.BPon 01-08-2025 MR/BMS.[address], [address] [place] [address] OFFICE VISIT Date of Service: 01/08/25 MR#: [id number] Acct: [id number] Name: ZACHARY MCDERMOTT (Jim) Rep #: [id number] : 1935 Provider: Dr. 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 Does live at [facility] in independent living with his . Denies any side effects from citalopram increase at this time. Unsure how much benefit he has noticed, but I do notice some mildly brighter affect. Memory has been alright. Recently had cataract surgery in recent past. Did comp (more content not included)... Normal [facility] CREATININE FINGERSTICKon CREATININE WB < 1.0 Normal 0.70-1.30 [facility] Comment on above: Performed By: #### L 065.9329 #### [facility] [address] [place], [address] EGFR WB > 60.0000 Normal >60 [facility] Comment on above: Performed By: #### L 501.9520 #### [facility] [address] [place], [address] Chest WITH Contraston 2024 Chest WITH Contrast [facility] Imaging Services [address] [place], [place] [address] Chest WITH Contrast MR#: [id number] Acct: [id number] Name: ZACHARY MCDERMOTT (Jim) Rep #: [id number] : 1935 M 89 From: Ashkan barrett MD PCP: Dr. Sandoval Montalvo MD Status: DEP CLI Study: Chest WITH Contrast Date of Exam: 01/03/25 Exam# [id number] Ordering Dr: Andres Shipley DO PROCEDURE: CHEST [...] of the examination is unchanged. Reading Location: [facility] CC: Dr. Andres Shipley DO; Dr. Sandoval Montalvo MD Product Safety Technical Assistant: Signed Normal [facility] Cardiology Visit Reporton Cardiology Visit Report [facility] [address] [place] [address] OFFICE VISIT Date of Service: 12/29/24 MR#: [id number] Acct: [id number] Name: ZACHARY MCDERMOTT (Jim) Rep #: [id number] : 1935 Provider: LORETA Tse Age/Sex: 89/M Location: [facility] Status: Signed HPI HPI History of Present Illness Details: Zachary Mcdermott is an 89 -year-old man that presents to the office today for a cardiovascular visit. He was admitted to the hospital in September 2020 with a right posterior cerebral artery ischemic stroke. He does have a history of hypertension. He received TPA and was transferred to [facility] due to the fact that he [...] any palpitations. He does not have any lightheadedness/dizzines s. He does not have any edema. 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 Normal [facility] Knee 1 or 2 Viewson 12-05-19 Knee 1 or 2 Views [facility] Imaging Services [address] [place] [address] Knee 1 or 2 Views MR#: [id number] Acct: [id number] Name: ZACHARY MCDERMOTT (Jim) Rep #: [id number] : 1935 M 89 From: Gene Garcia i DO PCP: Dr. Sandoval Montalvo MD Status: REG CLI Study: Knee 1 or 2 Views Date of Exam: 12/05/24 Exam# [id number] Ordering Dr: Sandoval Montalvo MD PROCEDURE: Right [...] changes of the right knee. Reading Location: [facility] CC: Dr. Sandoval Montalvo MD Product Safety Technical Assistant: Signed Normal [facility] Shoulder min 2 Viewson 12-05 Shoulder min 2 Views [facility] Imaging Services [address] [place], [place] [address] Shoulder min 2 Views MR#: [id number] Acct: [id number] Name: ZACHARY MCDERMOTT (Jim) Rep #: [id number] : 1935 M 89 From: Gene Garcia i DO PCP: Dr. Sandoval Montalvo MD Status: REG CLI Study: Shoulder min 2 Views Date of Exam: 12/05/24 Exam# [id number] Ordering Dr: Sandoval Montalvo MD PROCEDURE: Left shoulder radiographs, four views [...] acromioclavicular joint. The subacromial space is maintained. Dklndzxn-gj-txuudb degenerative change of the left glenohumeral joint. RAD/Shoulder min 2 Views IMPRESSION: Osteopenia. No acute bony abnormality of the left shoulder. Mild degenerative change of the left acromioclavicular joint. Moderate/severe degenerative change left glenohumeral joint. Reading Location: [facility] CC: Dr. Sandoval Montalvo MD Product Safety Technical Assistant: Signed Normal [facility] Shoulder min 2 Views [facility] Imaging Services [address] [place] [address] Shoulder min 2 Views MR#: [id number] Acct: [id number] Name: ZACHARY MCDERMOTT (Jim) Rep #: [id number] : 1935 M 89 From: Ashkan barrett MD PCP: Dr. Sandoval Montalvo MD Status: REG CLI Study: Shoulder min 2 Views Date of Exam: 12/05/24 Exam# [id number] Ordering Dr: Sandoval Montalvo MD PROCEDURE: SHOULDER [...] DEGENERATIVE OSTEOARTHROSIS. NO ACUTE FINDINGS. Reading Location: [id number] CC: Dr. Sandoval Montalvo MD Product Safety Technical Assistant: Signed Normal [facility] CBC W/Diff, Automatedon 02- 0 Absolute Lymph 1.69 X10 3/uL Normal 0.83-4.51 [facility] Comment on above: Performed By: #### L 100.0100, L506.1000, L501.9520, L500.4050 #### [facility] [address] [place], [address] Absolute Neut 6.5 X10 3/uL Normal 2.0-7.7 [facility] Comment on above: Performed By: #### L 100.0100, L506.1000, L501.9520, L500.4050 #### [facility] [address] [place], [address] Basophils/100 WBC (Bld) 0.6 % Normal 0-1 [facility] Comment on above: Performed By: #### L 100.0100, L506.1000, L501.9520, L500.4050 #### [facility] [address] [place], [address] Eosinophils/100 WBC (Bld) 1.1 % Normal 0-5 [facility] Comment on above: Performed By: #### L 100.0100, L506.1000, L501.9520, L500.4050 #### [facility] [address] [place], [address] Erythrocyte distribution width (RBC) [Ratio] 13.0 % Normal 11.6-14.6 [facility] Comment on above: Performed By: #### L 100.0100, L506.1000, L501.9520, L500.4050 #### [facility] [address] [place], [address] Hematocrit (Bld) [Volume fraction] 42.9 % Normal 40-54 [facility] Comment on above: Performed By: #### L 100.0100, L506.1000, L501.9520, L500.4050 #### [facility] [address] [place], [address] Hemoglobin (Bld) [Mass/Vol] 14.4 g/dL Normal 13.0-16.5 [facility] Comment on above: Performed By: #### L 100.0100, L506.1000, L501.9520, L500.4050 #### [facility] [address] [place], [address] IG% 0.600 Normal 0.0-0.9 [facility] Comment on above: Result Comment: IG% - Immature Granulocytes (promyelocytes, myelocytes and metamyelocytes) > 1% indicates that a LEFT SHIFT is Present. Performed By: #### L 100.0100, L506.1000, L501.9520, L500.4050 #### [facility] [address] [place], [address] Lymphocytes/100 WBC (Bld) 18.3 % Low 19-41 [facility] Comment on above: Performed By: #### L 100.0100, L506.1000, L501.9520, L500.4050 #### [facility] [address] [place], [address] MCH (RBC) [Entitic mass] 30.8 pg Normal 27.0-32.0 [facility] Comment on above: Performed By: #### L 100.0100, L506.1000, L501.9520, L500.4050 #### [facility] [address] [place], [address] MCHC (RBC) [Mass/Vol] 33.6 g/dL Normal 32-36 [facility] Comment on above: Performed By: #### L 100.0100, L506.1000, L501.9520, L500.4050 #### [facility] [address] [place], [address] MCV (RBC) [Entitic vol] 91.7 fL Normal 80-94 [facility] Comment on above: Performed By: #### L 100.0100, L506.1000, L501.9520, L500.4050 #### [facility] [address] [place], [address] Monocytes/100 WBC (Bld) 8.7 % Normal 0-10 [facility] Comment on above: Performed By: #### L 100.0100, L506.1000, L501.9520, L500.4050 #### [facility] [address] [place], [address] Neutrophils/100 WBC (Bld) 70.7 % High 47-70 [facility] Comment on above: Performed By: #### L 100.0100, L506.1000, L501.9520, L500.4050 #### [facility] [address] [place], [address] Nucleated RBC (Bld) [#/Vol] 0 10*3/uL Normal 0-5 [facility] Comment on above: Performed By: #### L 100.0100, L506.1000, L501.9520, L500.4050 #### [facility] [address] [place], [address] Platelet mean volume (Bld) [Entitic vol] 12.1 fL High 6.2-12.0 [facility] Comment on above: Performed By: #### L 100.0100, L506.1000, L501.9520, L500.4050 #### [facility] [address] [place], [address] Platelets (Bld) [#/Vol] 205 10*3/uL Normal 150-450 [facility] Comment on above: Performed By: #### L 100.0100, L506.1000, L501.9520, L500.4050 #### [facility] [address] [place], [address] RBC (Bld) [#/Vol] 4.68 10*6/uL Normal 4.6-6.2 [facility] Comment on above: Performed By: #### L 100.0100, L506.1000, L501.9520, L500.4050 #### [facility] [address] [place], [address] RDW SD 43.2 fl Normal 35.1-43.9 [facility] Comment on above: Performed By: #### L 100.0100, L506.1000, L501.9520, L500.4050 #### [facility] [address] [place], [address] WBC (Bld) [#/Vol] 9.2 10*3/uL Normal 4.4-11.0 [facility] Comment on above: Performed By: #### L 100.0100, L506.1000, L501.9520, L500.4050 #### [facility] [address] [place], [address] Comprehensive Metabolic Prof ilon 11-20-2024 Albumin [Mass/Vol] 3.5 g/dL Normal 3.2-5.0 [facility] Comment on above: Performed By: #### L 100.0100, L506.1000, L501.9520, L500.4050 #### [facility] [address] [place], [address] Albumin/Globulin [Mass ratio] 0.9 {ratio} Normal 0.9-2.4 [facility] Comment on above: Performed By: #### L 100.0100, L506.1000, L501.9520, L500.4050 #### [facility] [address] [place], [address] ALK P 67 U/L Normal 45-117 [facility] Comment on above: Performed By: #### L 100.0100, L506.1000, L501.9520, L500.4050 #### [facility] [address] [place], [address] ALT [Catalytic activity/Vol] 55 U/L Normal 16-61 [facility] Comment on above: Performed By: #### L 100.0100, L506.1000, L501.9520, L500.4050 #### [facility] [address] [place], [address] AST [Catalytic activity/Vol] 25 U/L Normal 15-37 [facility] Comment on above: Performed By: #### L 100.0100, L506.1000, L501.9520, L500.4050 #### [facility] [address] [place], [address] Bilirubin [Mass/Vol] 0.80 mg/dL Normal 0.20-1.00 [facility] Comment on above: Result Comment: For patients on eltrombopag therapy, use of Dimension Myton TBIL is not recommended. Performed By: #### L 100.0100, L506.1000, L501.9520, L500.4050 #### [facility] [address] [place], [address] BUN/CRE 17.3 RATIO Normal 10-20 [facility] Comment on above: Performed By: #### L 100.0100, L506.1000, L501.9520, L500.4050 #### [facility] [address] [place], [address] CA,Total 8.7 mg/dL Normal 8.5-10.1 [facility] Comment on above: Performed By: #### L 100.0100, L506.1000, L501.9520, L500.4050 #### [facility] [address] [place], [address] Chloride [Moles/Vol] 108 mmol/L High 98-107 [facility] Comment on above: Performed By: #### L 100.0100, L506.1000, L501.9520, L500.4050 #### [facility] [address] [place], [address] CO2 [Moles/Vol] 24.0 mmol/L Normal 21.0-32.0 [facility] Comment on above: Performed By: #### L 100.0100, L506.1000, L501.9520, L500.4050 #### [facility] [address] [place], [address] Creatinine [Mass/Vol] 0.69 mg/dL Low 0.70-1.30 [facility] Comment on above: Result Comment: The validity of the calculated GFR GFRAA in patients over 70 years has not been determined. Clinical correlation is essential. Performed By: #### L 100.0100, L506.1000, L501.9520, L500.4050 #### [facility] [address] [place], [address] EST GFR - AA 138 mL/min Normal >60 [facility] Comment on above: Result Comment: Afri can Martiniquais GFR Calc Performed By: #### L 100.0100, L506.1000, L501.9520, L500.4050 #### [facility] [address] [place], [address] GAP 8 Normal 5-15 [facility] Comment on above: Performed By: #### L 100.0100, L506.1000, L501.9520, L500.4050 #### [facility] [address] [place], [address] GFR/1.73 sq M.predicted among non-blacks MDRD (S/P/Bld) [Vol rate/Area] 114 mL/min/{1.73_m2} Normal >60 [facility] Comment on above: Result Comment: Non- GFR Calc Performed By: #### L 100.0100, L506.1000, L501.9520, L500.4050 #### [facility] [address] [place], [address] Globulin (S) [Mass/Vol] 3.7 g/dL Normal 2.2-4.2 [facility] Comment on above: Performed By: #### L 100.0100, L506.1000, L501.9520, L500.4050 #### [facility] [address] [place], [address] Glucose [Mass/Vol] 177 mg/dL High 74-106 [facility] Comment on above: Result Comment: Fast ing Glucose result greater than or equal to 126 mg/dL suggests DIABETES MELLITUS per A.D.A. criteria. Performed By: #### L 100.0100, L506.1000, L501.9520, L500.4050 #### [facility] [address] [place], [address] Potassium [Moles/Vol] 4.0 mmol/L Normal 3.5-5.1 [facility] Comment on above: Performed By: #### L 100.0100, L506.1000, L501.9520, L500.4050 #### [facility] [address] [place], [address] Sodium [Moles/Vol] 140 mmol/L Normal 136-145 [facility] Comment on above: Performed By: #### L 100.0100, L506.1000, L501.9520, L500.4050 #### [facility] [address] [place], [address] T PROT 7.2 g/dL Normal 6.4-8.2 [facility] Comment on above: Performed By: #### L 100.0100, L506.1000, L501.9520, L500.4050 #### [facility] [address] [place], [address] Urea nitrogen [Mass/Vol] 12 mg/dL Normal 7-18 [facility] Comment on above: Performed By: #### L 100.0100, L506.1000, L501.9520, L500.4050 #### [facility] [address] [place], [address] Thyroid Stim Hormone (TSH)on 11-20-2024 TSH 2.420 uIU/mL Normal 0.358-3.740 [facility] Comment on above: Performed By: #### L 100.0100, L506.1000, L501.9520, L500.4050 #### [facility] [address] [place], [address] Vitamin D,25 Hydroxyon 11-20 Vitamin D 25-OH 19.8 ng/mL Normal [facility] Comment on above: Result Comment: Sharonda min D 25(OH) Status Range Deficiency <20 ng/mL (50nmol/L) Insufficiency 20 - 30 ng/mL (50 - 75 nmol/L) Sufficiency 30 - 100 ng/mL (75 - 250 nmol/L) Toxicity >100 ng/mL (>250 nmol/L) Performed By: #### L 100.0100, L506.1000, L501.9520, L500.4050 #### [facility] [address] [place], [place], [address] MR/BMS.BPon 11-08-2024 MR/BMS.BP [address], [address] [place] [address] OFFICE VISIT Date of Service: 11/08/24 MR#: [id number] Acct: [id number] Name: ZACHARY MCDERMOTT (Jim) Rep #: [id number] : 1935 Provider: Dr. Vincent Alvarado se, DO Age/Sex: 89/M Location: [facility].BP Status: Signed Intake Vital Signs 07/06/24 13:55 [...] in the past year?: Yes (no injury) [facility] Medical History (Updated 11/08/24 @ 10:[address] Vincent Olmstead, DO) MDD (major depressive disorder) Diabetes Chondrosarcoma of ribs Chronic eczema PAF (paroxysmal atrial fibrillation) Cholelithiasis Wears glasses Wears hearing aid Cancer Bruising Walker as ambulation aid Ambulates with cane Easy bruising High cholesterol Former smoker Hypertension Loss of peripheral visual field BPH (benign prostatic hyperplasia) Basal cell carcinoma Cryptogenic stroke History of ischemic right 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) Essential (primary) hypertension Left arm [...] smokin years ago; quit sometime in the 1959's alcohol intake: current alcohol intake frequency: holidays/special [...] inoperable. Does at times feel very depressed. [place] having a fall in an airport when being wheeled by an attendant in [place]. Had to sign a paper to decline medical care so that he could return to [place] to receive medical care. Had two subsequent CT scans. Feels like these injuries affect the way that he feels, specifically in regards to pain. Patient and his do live at [facility]. Has a history of diabetes, but does admit that he does not have a good understanding of his blood sugar. Has had erectile dysfunction since he had a stroke and this has caused some (more content not included)... Normal [facility] Thyroid Stim Hormone (TSH)on 09-27-2024 TSH 2.910 uIU/mL Normal 0.358-3.740 [facility] Comment on above: Performed By: #### L 501.4961 #### [facility] [address] [place], [place], [address] CBC W/Diff, Automatedon 11-0 Absolute Lymph 1.57 X10 3/uL Normal 0.83-4.51 [facility] Comment on above: Performed By: #### L 501.9520 #### [facility] [address] [place], [address] Absolute Neut 5.6 X10 3/uL Normal 2.0-7.7 [facility] Comment on above: Performed By: #### L 501.9520 #### [facility] [address] [place], [address] Basophils/100 WBC (Bld) 0.9 % Normal 0-1 [facility] Comment on above: Performed By: #### L 501.9520 #### [facility] [address] [place], [address] Eosinophils/100 WBC (Bld) 1.1 % Normal 0-5 [facility] Comment on above: Performed By: #### L 501.9520 #### [facility] [address] [place], [address] Erythrocyte distribution width (RBC) [Ratio] 13.2 % Normal 11.6-14.6 [facility] Comment on above: Performed By: #### L 501.9520 #### [facility] [address] [place], [address] Hematocrit (Bld) [Volume fraction] 42.0 % Normal 40-54 [facility] Comment on above: Performed By: #### L 501.9520 #### [facility] [address] [place], [address] Hemoglobin (Bld) [Mass/Vol] 14.0 g/dL Normal 13.0-16.5 [facility] Comment on above: Performed By: #### L 501.9520 #### [facility] [address] [place], [address] IG% 0.500 Normal 0.0-0.9 [facility] Comment on above: Result Comment: IG% - Immature Granulocytes (promyelocytes, myelocytes and metamyelocytes) > 1% indicates that a LEFT SHIFT is Present. Performed By: #### L 501.9520 #### [facility] [address] [place], [address] Lymphocytes/100 WBC (Bld) 19.5 % Normal 19-41 [facility] Comment on above: Performed By: #### L 501.9520 #### [facility] [address] [place], [address] MCH (RBC) [Entitic mass] 30.8 pg Normal 27.0-32.0 [facility] Comment on above: Performed By: #### L 501.95 #### [facility] [address] [place], [address] MCHC (RBC) [Mass/Vol] 33.3 g/dL Normal 32-36 [facility] Comment on above: Performed By: #### L 501.9520 #### [facility] [address] [place], [address] MCV (RBC) [Entitic vol] 92.3 fL Normal 80-94 [facility] Comment on above: Performed By: #### L 501.9520 #### [facility] [address] [place], [address] Monocytes/100 WBC (Bld) 9.3 % Normal 0-10 [facility] Comment on above: Performed By: #### L 501.9520 #### [facility] [address] [place], [address] Neutrophils/100 WBC (Bld) 68.7 % Normal 47-70 [facility] Comment on above: Performed By: #### L 501.9520 #### [facility] [address] [place], [address] Nucleated RBC (Bld) [#/Vol] 0 10*3/uL Normal 0-5 [facility] Comment on above: Performed By: #### L 501.9520 #### [facility] [address] [place], [address] Platelet mean volume (Bld) [Entitic vol] 11.4 fL Normal 6.2-12.0 [facility] Comment on above: Performed By: #### L 501.9520 #### [facility] [address] [place], [address] Platelets (Bld) [#/Vol] 232 10*3/uL Normal 150-450 [facility] Comment on above: Performed By: #### L 501.9520 #### [facility] [address] [place], [address] RBC (Bld) [#/Vol] 4.55 10*6/uL Low 4.6-6.2 [facility] Comment on above: Performed By: #### L 501.9520 #### [facility] [address] [place], [address] RDW SD 44.5 fl High 35.1-43.9 [facility] Comment on above: Performed By: #### L 501.9520 #### [facility] [address] [place], [address] WBC (Bld) [#/Vol] 8.1 10*3/uL Normal 4.4-11.0 [facility] Comment on above: Performed By: #### L 501.9520 #### [facility] [address] [place], [address] Comprehensive Metabolic Prof ilon 08-14-2024 Albumin [Mass/Vol] 3.5 g/dL Normal 3.2-5.0 [facility] Comment on above: Order Comment: VITD Performed By: #### L 501.9520 #### [facility] [address] [place], [address] Albumin/Globulin [Mass ratio] 1.1 {ratio} Normal 0.9-2.4 [facility] Comment on above: Order Comment: VITD Performed By: #### L 501.9520 #### [facility] [address] [place], [address] ALK P 66 U/L Normal 45-117 [facility] Comment on above: Order Comment: VITD Performed By: #### L 501.9520 #### [facility] [address] [place], [address] ALT [Catalytic activity/Vol] 37 U/L Normal 16-61 [facility] Comment on above: Order Comment: VITD Performed By: #### L 501.9520 #### [facility] [address] [place], [address] AST [Catalytic activity/Vol] 17 U/L Normal 15-37 [facility] Comment on above: Order Comment: VITD Performed By: #### L 501.9520 #### [facility] [address] [place], [address] Bilirubin [Mass/Vol] 0.60 mg/dL Normal 0.20-1.00 [facility] Comment on above: Order Comment: VITD Result Comment: For patients on eltrombopag therapy, use of Dimension Myton TBIL is not recommended. Performed By: #### L 501.9520 #### [facility] [address] [place], [address] BUN/CRE 16.8 RATIO Normal 10-20 [facility] Comment on above: Order Comment: VITD Performed By: #### L 501.9520 #### [facility] [address] [place], [address] CA,Total 8.7 mg/dL Normal 8.5-10.1 [facility] Comment on above: Order Comment: VITD Performed By: #### L 501.9520 #### [facility] [address] [place], [address] Chloride [Moles/Vol] 107 mmol/L Normal 98-107 [facility] Comment on above: Order Comment: VITD Performed By: #### L 501.9520 #### [facility] [address] [place], [address] CO2 [Moles/Vol] 24.0 mmol/L Normal 21.0-32.0 [facility] Comment on above: Order Comment: VITD Performed By: #### L 501.9520 #### [facility] [address] [place], [address] Creatinine [Mass/Vol] 0.83 mg/dL Normal 0.70-1.30 [facility] Comment on above: Order Comment: VITD Result Comment: The validity of the calculated GFR GFRAA in patients over 70 years has not been determined. Clinical correlation is essential. Performed By: #### L 501.9520 #### [facility] [address] [place], [address] EST GFR - AA 112 mL/min Normal >60 [facility] Comment on above: Order Comment: VITD Result Comment: Afri can Martiniquais GFR Calc Performed By: #### L 501.9520 #### [facility] [address] [place], [address] GAP 6 Normal 5-15 [facility] Comment on above: Order Comment: VITD Performed By: #### L 501.9520 #### [facility] [address] [place], [address] GFR/1.73 sq M.predicted among non-blacks MDRD (S/P/Bld) [Vol rate/Area] 92 mL/min/{1.73_m2} Normal >60 [facility] Comment on above: Order Comment: VITD Result Comment: Non- GFR Calc Performed By: #### L 501.9520 #### [facility] [address] [place], [address] Globulin (S) [Mass/Vol] 3.2 g/dL Normal 2.2-4.2 [facility] Comment on above: Order Comment: VITD Performed By: #### L 501.9520 #### [facility] [address] [place], [address] Glucose [Mass/Vol] 251 mg/dL High 74-106 [facility] Comment on above: Order Comment: VITD Result Comment: Gluc ose result greater than or equal to 200 mg/dL suggests DIABETES MELLITUS per A.D.A. criteria. Performed By: #### L 501.9520 #### [facility] [address] [place], [address] Potassium [Moles/Vol] 4.3 mmol/L Normal 3.5-5.1 [facility] Comment on above: Order Comment: VITD Performed By: #### L 501.9520 #### [facility] [address] [place], [address] Sodium [Moles/Vol] 137 mmol/L Normal 136-145 [facility] Comment on above: Order Comment: VITD Performed By: #### L 501.9520 #### [facility] [address] [place], [address] T PROT 6.7 g/dL Normal 6.4-8.2 [facility] Comment on above: Order Comment: VITD Performed By: #### L 501.9520 #### [facility] [address] [place], [address] Urea nitrogen [Mass/Vol] 14 mg/dL Normal 7-18 [facility] Comment on above: Order Comment: VITD Performed By: #### L 501.9520 #### [facility] [address] [place], [address] Thyroid Stim Hormone (TSH)on 08-14-2024 TSH 5.020 uIU/mL High 0.358-3.740 [facility] Comment on above: Order Comment: VITD Performed By: #### L 501.9520 #### [facility] [address] [place], [place], [address] Vitamin D,25 Hydroxyon 08-14 Vitamin D 25-OH 21.8 ng/mL Normal [facility] Comment on above: Result Comment: Sharonda min D 25(OH) Status Range Deficiency <20 ng/mL (50nmol/L) Insufficiency 20 - 30 ng/mL (50 - 75 nmol/L) Sufficiency 30 - 100 ng/mL (75 - 250 nmol/L) Toxicity >100 ng/mL (>250 nmol/L) Performed By: #### L 111.1775 #### [facility] [address] [address] [place], [place], [address] Radiation Oncology Visiton 0 07-06-2024 Radiation Oncology Visit [facility] [address] [place], [place] [address] OFFICE VISIT Date of Service: 07/06/24 1353 MR#: [id number] Acct: [id number] Name: ZACHARY MCDERMOTT Rep #: [id number] : 1935 From: Andres Shipley DO Age/Sex: 88/M Location: [facility] Status: Signed Intake Vital Signs 03/09/24 13:41 [...] carcinoma Cryptogenic stroke 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 Normal [facility] Chest WITH Contraston 2023 Chest WITH Contrast [facility] Imaging Services [address] [place], [place] [id number] Chest WITH Contrast MR#: [id number] Acct: [id number] Name: ZACHARY MCDERMOTT Rep #: [id number] : 1935 M 88 From: Gerardo Calvo MD PCP: Dr. Sandoval Montalvo MD Status: REG CLI Study: Chest WITH Contrast Date of Exam: 07/04/24 Exam# [id number] Ordering Dr: Andres Shipley DO [id number] EXAM: CT CHEST WITH INTRAVENOUS CONTRAST CLINICAL [...] Signed: Gerardo Calvo MD at 8:45 EDT Reading Location ID and State: [facility] / [place] Tel , Service support , CC: Dr. Andres Shipley DO; Dr. Sandoval Montalvo MD Product Safety Technical Assistant: Signed Normal [facility] Urine Cultureon 06-24-2024 [facility] Mixed Gram Positive Organisms [place] Count 1000-10,000 MIXC Mixed contaminants. Submit a new specimen if indicated. Normal [facility] Comment on above: Performed By: #### L 501.9985, L500.4050 #### [facility] [address] [place], [address] CBC W/Diff, Automatedon 06-11 Absolute Lymph 1.14 X10 3/uL Normal 0.83-4.51 [facility] Comment on above: Performed By: #### L 501.9520 #### [facility] [address] [place], [address] Absolute Neut 6.6 X10 3/uL Normal 2.0-7.7 [facility] Comment on above: Performed By: #### L 501.9520 #### [facility] [address] [place], [address] Basophils/100 WBC (Bld) 0.6 % Normal 0-1 [facility] Comment on above: Performed By: #### L 501.9520 #### [facility] [address] [place], [address] Eosinophils/100 WBC (Bld) 0.6 % Normal 0-5 [facility] Comment on above: Performed By: #### L 501.9520 #### [facility] [address] [place], [address] Erythrocyte distribution width (RBC) [Ratio] 12.9 % Normal 11.6-14.6 [facility] Comment on above: Performed By: #### L 501.9520 #### [facility] [address] [place], [address] Hematocrit (Bld) [Volume fraction] 41.0 % Normal 40-54 [facility] Comment on above: Performed By: #### L 048.8298 #### [facility] [address] [place], [address] Hemoglobin (Bld) [Mass/Vol] 13.7 g/dL Normal 13.0-16.5 [facility] Comment on above: Performed By: #### L 468.9520 #### [facility] [address] [place], [address] IG% 0.400 Normal 0.0-0.9 [facility] Comment on above: Result Comment: IG% - Immature Granulocytes (promyelocytes, myelocytes and metamyelocytes) > 1% indicates that a LEFT SHIFT is Present. Performed By: #### L 120.9520 #### [facility] [address] [place], [address] Lymphocytes/100 WBC (Bld) 13.3 % Low 19-41 [facility] Comment on above: Performed By: #### L 078.9520 #### [facility] [address] [place], [address] MCH (RBC) [Entitic mass] 30.4 pg Normal 27.0-32.0 [facility] Comment on above: Performed By: #### L 717.20 #### [facility] [address] [place], [address] MCHC (RBC) [Mass/Vol] 33.4 g/dL Normal 32-36 [facility] Comment on above: Performed By: #### L 880.9620 #### [facility] [address] [place], [address] MCV (RBC) [Entitic vol] 91.1 fL Normal 80-94 [facility] Comment on above: Performed By: #### L 918.0320 #### [facility] [address] [place], [address] Monocytes/100 WBC (Bld) 8.4 % Normal 0-10 [facility] Comment on above: Performed By: #### L 501.9520 #### [facility] [address] [place], [address] Neutrophils/100 WBC (Bld) 76.7 % High 47-70 [facility] Comment on above: Performed By: #### L .9519 #### [facility] [address] [place], [address] Nucleated RBC (Bld) [#/Vol] 0 10*3/uL Normal 0-5 [facility] Comment on above: Performed By: #### L 501.9519 #### [facility] [address] [place], [address] Platelet mean volume (Bld) [Entitic vol] 12.1 fL High 6.2-12.0 [facility] Comment on above: Performed By: #### L 501.9520 #### [facility] [address] [place], [address] Platelets (Bld) [#/Vol] 214 10*3/uL Normal 150-450 [facility] Comment on above: Performed By: #### L 501.9520 #### [facility] [address] [place], [address] RBC (Bld) [#/Vol] 4.50 10*6/uL Low 4.6-6.2 [facility] Comment on above: Performed By: #### L 501.9520 #### [facility] [address] [place], [address] RDW SD 42.9 fl Normal 35.1-43.9 [facility] Comment on above: Performed By: #### L 501.9520 #### [facility] [address] [place], [address] WBC (Bld) [#/Vol] 8.6 10*3/uL Normal 4.4-11.0 [facility] Comment on above: Performed By: #### L 501.9520 #### [facility] [address] [place], [address] Comprehensive Metabolic Prof ilon 06-23-2024 Albumin [Mass/Vol] 3.5 g/dL Normal 3.2-5.0 [facility] Comment on above: Performed By: #### L 501.9520 #### [facility] [address] [place], [address] Albumin/Globulin [Mass ratio] 1.0 {ratio} Normal 0.9-2.4 [facility] Comment on above: Performed By: #### L 501.9520 #### [facility] [address] [place], [address] ALK P 80 U/L Normal 45-117 [facility] Comment on above: Performed By: #### L 501.9520 #### [facility] [address] [place], [address] ALT [Catalytic activity/Vol] 41 U/L Normal 16-61 [facility] Comment on above: Performed By: #### L 501.9520 #### [facility] [address] [place], [address] AST [Catalytic activity/Vol] 28 U/L Normal 15-37 [facility] Comment on above: Result Comment: Mode rate Hemolysis, Result may be falsely increased. Performed By: #### L 501.9520 #### [facility] [address] [place], [address] Bilirubin [Mass/Vol] 0.90 mg/dL Normal 0.20-1.00 [facility] Comment on above: Result Comment: For patients on eltrombopag therapy, use of Dimension Myton TBIL is not recommended. Performed By: #### L 501.9520 #### [facility] [address] [place], [address] BUN/CRE 16.7 RATIO Normal 10-20 [facility] Comment on above: Performed By: #### L 501.9520 #### [facility] [address] [place], [address] CA,Total 9.9 mg/dL Normal 8.5-10.1 [facility] Comment on above: Performed By: #### L 501.9520 #### [facility] [address] [place], [address] Chloride [Moles/Vol] 105 mmol/L Normal 98-107 [facility] Comment on above: Performed By: #### L 501.95 #### [facility] [address] [place], [address] CO2 [Moles/Vol] 23.0 mmol/L Normal 21.0-32.0 [facility] Comment on above: Performed By: #### L 318.9520 #### [facility] [address] [place], [address] Creatinine [Mass/Vol] 1.02 mg/dL Normal 0.70-1.30 [facility] Comment on above: Result Comment: The validity of the calculated GFR GFRAA in patients over 70 years has not been determined. Clinical correlation is essential. Performed By: #### L [address] #### [facility] [address] [place], [address] EST GFR - AA 89 mL/min Normal >60 [facility] Comment on above: Result Comment: Afri can Martiniquais GFR Calc Performed By: #### L 342.8523 #### [facility] [address] [place], [address] GAP 9 Normal 5-15 [facility] Comment on above: Performed By: #### L 588.9442 #### [facility] [address] [place], [address] GFR/1.73 sq M.predicted among non-blacks MDRD (S/P/Bld) [Vol rate/Area] 73 mL/min/{1.73_m2} Normal >60 [facility] Comment on above: Result Comment: Non- GFR Calc Performed By: #### L 978.4120 #### [facility] [address] [place], [address] Globulin (S) [Mass/Vol] 3.6 g/dL Normal 2.2-4.2 [facility] Comment on above: Performed By: #### L 882.66 #### [facility] [address] [place], [address] Glucose [Mass/Vol] 384 mg/dL High 74-106 [facility] Comment on above: Result Comment: Gluc ose result greater than or equal to 200 mg/dL suggests DIABETES MELLITUS per A.D.A. criteria. Performed By: #### L 682.9020 #### [facility] [address] [place], [address] Potassium [Moles/Vol] 4.1 mmol/L Normal 3.5-5.1 [facility] Comment on above: Result Comment: Mode rate Hemolysis, Result may be falsely increased. Performed By: #### L 722.9576 #### [facility] [address] [place], [address] Sodium [Moles/Vol] 137 mmol/L Normal 136-145 [facility] Comment on above: Performed By: #### L 951.3020 #### [facility] [address] [place], [address] T PROT 7.1 g/dL Normal 6.4-8.2 [facility] Comment on above: Performed By: #### L 706.6192 #### [facility] [address] [place], [address] Urea nitrogen [Mass/Vol] 17 mg/dL Normal 7-18 [facility] Comment on above: Performed By: #### L 501.9520 #### [facility] [address] [place], [address] CNPNon 05-18-2024 [facility] ZACHARY MCDERMOTT ([id number]) 1935 M Date Time Provider Department 05/18/24 EMILIA JACOB [facility] During your visit today, we recorded the following information about you: Carolyn Romero MA 05/18/2024 8:57 AM Signed Office received a medical release form for pt to have records sent to [facility]. Ok to send? KELLY Pryor Mark D, MD 05/18/2024 9:00 AM Signed OK to send MD Nick Maxwell Kathryn, MA 05/18/2024 9:43 AM Signed form sent to [facility] rec to send. Carolyn Romero MA Allergies As of Date: 05/18/2024 Noted Allergy Reaction PENICILLINS 09/15/2005 Date Reviewed: 03/23/2024 Reviewed by: Carmen Benítez LPN - Fully Assessed Reason for Visit: Release Of Medical Records [2017] Cmt: [facility] Prescriptions as of 05/18/2024 - apixaban (ELIQUIS) [...] Encounter Status:Closed by CAROLYN ROMERO on 05/18/24 [facility] Tele[facility] ([facility]) -------- ZACHARY MCDERMOTT ([id number]) 1935 M Date Time Provider Department 04/27/24 EMILIA JACOB During your visit today, we recorded the following information about you: Chacha Maribanner [facility] Rose Mary 04/27/2024 9:40 AM Signed Mark has his [...] him through that time. Pharmacy is [facility] in [place], please advise Patti as she is concerned that patient needs this medication and can not be without it. Patient has been identified by name and birthdate. Duration of symptoms: N/A Person calling: spouse: Patti Call patient Patti at home ok to leave message per patient Patti [phone] (home) [phone] (cell) Was an appointment scheduled: No Closing statement: Results or non-symptom based questions: Thank you for calling [facility], your call will be returned within the next business day. Rose Mary Burnham [facility] Digna Chakraborty APRN.CNP 04/27/2024 11:45 AM Signed The following approved [...] stomach went away). Requesting call back on [phone] cell phone as they are going on vacation. ABBEY Bear Ashley, APRN.CNP 04/27/2024 1:19 PM Signed Can you please call the patient's daughter back and let her know that both the diabetic medications that he is taking right now can both cause upset stomach. KANDACE Burrell Barbara, LPN 04/27/2024 1:47 PM Signed Patient notified [...] [D64.9] 05/01 (more content not included)... [facility] ([facility] -------- ZACHARY MCDERMOTT Chandana ([id number]) 1935 M Date Time Provider Department 03/27/24 [facility] During your visit today, we recorded the following information about you: Digna Chakraborty APRN.CNP 03/27/2024 5:44 PM Signed Can you please [...] 03/29/2024 4:20 PM Signed Noted Digna Chakraborty APRN.AIDA Allergies As of Date: 03/27/2024 Noted Allergy [...] 03/12/2015 [facility] (more content not included)... Normal [facility] Bacteria Ur Culton 4 Bacteria identified Cx Nom (U) ORGANISM ID: 1 10,000 -<50,000 CFU/ml Mixed microbiota No further workup. Mixed microbiota can be due to???urine???contaminati on with skin bacteria at time of collection or presence of a long-term urinary catheter. If a new culture is needed, please consider re-education of the patient on proper midstream collection technique or straight catheterization for???urine???collection . Normal [facility] Comment on above: Performed By: #### 6 30-4 ####[facility] LABIA [id number] [place] [address] [place] CBC W Auto Differential pane l (Bld)on 03-24-2024 Basophils (Bld) [#/Vol] 0.08 10*3/uL Normal <0.11 [facility] Comment on above: Order Comment: Speci men Type: BLOOD SPECIMENOrdering Facility: [facility] Address: [address] [place] [address] Performed By: #### 5 7021-8 ####[facility] LABIA [id number] [place] [address] [place] Basophils/100 WBC (Bld) 0.9 % Normal [facility] Comment on above: Order Comment: Speci men Type: BLOOD SPECIMENOrdering Facility: [facility] Address: [address] [place] [address] Performed By: #### 5 7021-8 ####[facility] LABIA [id number] [place] [address] [place] Differential cell count method Nom (Bld) Auto Normal [facility] Comment on above: Order Comment: Speci men Type: BLOOD SPECIMENOrdering Facility: [facility] Address: [address] [place] [address] Performed By: #### 5 7021-8 ####[facility] LABCLIA [id number] [place] [address] [place] Eosinophils (Bld) [#/Vol] 0.10 10*3/uL Normal <0.46 [facility] Comment on above: Order Comment: Speci men Type: BLOOD SPECIMENOrdering Facility: [facility] Address: [address] [place] [address] Performed By: #### 5 7021-8 ####[facility] LABIA [id number] [place] [address] [place] Eosinophils/100 WBC (Bld) 1.1 % Normal [facility] Comment on above: Order Comment: Speci men Type: BLOOD SPECIMENOrdering Facility: [facility] Address: [address] [place] [address] Performed By: #### 5 7021-8 ####[facility] LABIA [id number] [place] [address] [place] Erythrocyte distribution width (RBC) [Ratio] 12.9 % Normal 11.5-15.0 [facility] Comment on above: Order Comment: Speci men Type: BLOOD SPECIMENOrdering Facility: [facility] Address: [address] [place] [address] Performed By: #### 5 7021-8 ####[facility] LABIA [id number] [place] [address] [place] Hematocrit (Bld) [Volume fraction] 44.4 % Normal 39.0-51.0 [facility] Comment on above: Order Comment: Speci men Type: BLOOD SPECIMENOrdering Facility: [facility] Address: [address] [place] [address] Performed By: #### 5 7021-8 ####[facility] LABCLIA [id number] [place] [address] [place] Hemoglobin (Bld) [Mass/Vol] 14.2 g/dL Normal 13.0-17.0 [facility] Comment on above: Order Comment: Speci men Type: BLOOD SPECIMENOrdering Facility: [facility] Address: [address] [place] [address] Performed By: #### 5 7021-8 ####[facility] LABCLIA [id number] [place] [address] [place] Immature granulocytes (Bld) [#/Vol] 0.06 10*3/uL Normal <0.10 [facility] Comment on above: Order Comment: Speci men Type: BLOOD SPECIMENOrdering Facility: [facility] Address: [address] [place] [address] Performed By: #### 5 7021-8 ####[facility] LABIA [id number] [place] [address] [place] Immature granulocytes/100 WBC (Bld) 0.7 % Normal [facility] Comment on above: Order Comment: Speci men Type: BLOOD SPECIMENOrdering Facility: [facility] Address: [address] [place] [address] Performed By: #### 5 7021-8 ####[facility] LABIA [id number] [place] [address] [place] Lymphocytes (Bld) [#/Vol] 1.35 10*3/uL Normal 1.00-4.00 [facility] Comment on above: Order Comment: Speci men Type: BLOOD SPECIMENOrdering Facility: [facility] Address: [address] [place] [address] Performed By: #### 5 7021-8 ####[facility] LABIA [id number] [place] [address] [place] Lymphocytes/100 WBC (Bld) 15.3 % Normal [facility] Comment on above: Order Comment: Speci men Type: BLOOD SPECIMENOrdering Facility: [facility] Address: [address] [place] [address] Performed By: #### 5 7021-8 ####[facility] LABCLIA [id number] [place] [address] [place] MCH (RBC) [Entitic mass] 30.5 pg Normal 26.0-34.0 [facility] Comment on above: Order Comment: Speci men Type: BLOOD SPECIMENOrdering Facility: [facility] Address: [address] [place] [address] Performed By: #### 5 7021-8 ####[facility] LABCLIA [id number] [place] [address] [place] MCHC (RBC) [Mass/Vol] 32.0 g/dL Normal 30.5-36.0 [facility] Comment on above: Order Comment: Speci men Type: BLOOD SPECIMENOrdering Facility: [facility] Address: [address] [place] [address] Performed By: #### 5 7021-8 ####[facility] LABIA [id number] [place] [address] [place] MCV (RBC) [Entitic vol] 95.3 fL Normal 80.0-100.0 [facility] Comment on above: Order Comment: Speci men Type: BLOOD SPECIMENOrdering Facility: [facility] Address: [address] [place] [address] Performed By: #### 5 7021-8 ####[facility] LABCLIA [id number] [place] [address] [place] Monocytes (Bld) [#/Vol] 0.83 10*3/uL Normal <0.87 [facility] Comment on above: Order Comment: Speci men Type: BLOOD SPECIMENOrdering Facility: [facility] Address: [address] [place] [address] Performed By: #### 5 7021-8 ####[facility] LABCLIA [id number] [place] [address] [place] Monocytes/100 WBC (Bld) 9.4 % Normal [facility] Comment on above: Order Comment: Speci men Type: BLOOD SPECIMENOrdering Facility: [facility] Address: [address] [place] [address] Performed By: #### 5 7021-8 ####[facility] LABCLIA [id number] [place] [address] [place] Neutrophils (Bld) [#/Vol] 6.38 10*3/uL Normal 1.45-7.50 [facility] Comment on above: Order Comment: Speci men Type: BLOOD SPECIMENOrdering Facility: [facility] Address: [address] [place] [address] Performed By: #### 5 7021-8 ####[facility] LABCLIA [id number] [place] [address] [place] Neutrophils/100 WBC (Bld) 72.6 % Normal [facility] Comment on above: Order Comment: Speci men Type: BLOOD SPECIMENOrdering Facility: [facility] Address: [address] [place] [address] Performed By: #### 5 7021-8 ####[facility] LABCLIA [id number] [place] [address] [place] Nucleated RBC (Bld) [#/Vol] 10*3/uL Normal <0.01 [facility] Comment on above: Order Comment: Speci men Type: BLOOD SPECIMENOrdering Facility: [facility] Address: [address] [place] [address] Performed By: #### 5 7021-8 ####[facility] LABCLIA [id number] [place] [address] [place] Nucleated RBC/100 WBC (Bld) [Ratio] 0.0 /100 WBC Normal [facility] Comment on above: Order Comment: Speci men Type: BLOOD SPECIMENOrdering Facility: [facility] Address: [address] [place] [address] Performed By: #### 5 7021-8 ####[facility] LABCLIA [id number] [place] [address] [place] Platelet mean volume (Bld) [Entitic vol] 12.3 fL Normal 9.0-12.7 [facility] Comment on above: Order Comment: Speci men Type: BLOOD SPECIMENOrdering Facility: [facility] Address: [address] [place] [address] Performed By: #### 5 7021-8 ####[facility] LABCLIA [id number] [place] [address] [place] Platelets (Bld) [#/Vol] 275 10*3/uL Normal 150-400 [facility] Comment on above: Order Comment: Speci men Type: BLOOD SPECIMENOrdering Facility: [facility] Address: [address] [place] [address] Performed By: #### 5 7021-8 ####[facility] LABCLIA [id number] [place] [address] [place] RBC (Bld) [#/Vol] 4.66 10*6/uL Normal 4.20-6.00 [facility] Comment on above: Order Comment: Speci men Type: BLOOD SPECIMENOrdering Facility: [facility] Address: [address] [place] [address] Performed By: #### 5 7021-8 ####[facility] LABCLIA [id number] [place] [address] [place] WBC (Bld) [#/Vol] 8.80 10*3/uL Normal 3.70-11.00 [facility] Comment on above: Order Comment: Speci men Type: BLOOD SPECIMENOrdering Facility: [facility] Address: [address] [place] [address] Performed By: #### 5 7021-8 ####[facility] LABCLIA [id number] [address] [address] [place] [facility] Comprehensive metabolic 2000 panelon 03-24-2024 Albumin [Mass/Vol] 4.1 g/dL Normal 3.9-4.9 [facility] Comment on above: Order Comment: Speci men Type: BLOOD SPECIMENOrdering Facility: [facility] Address: [address] [place] [address] Performed By: #### 2 4323-8 ####[facility] LABCLIA [id number] [place] [address] [place] ALP [Catalytic activity/Vol] 87 U/L Normal 38-113 [facility] Comment on above: Order Comment: Speci men Type: BLOOD SPECIMENOrdering Facility: [facility] Address: [address] [place] [address] Performed By: #### 2 4323-8 ####[facility] LABCLIA [id number] [place] [address] [place] ALT [Catalytic activity/Vol] 33 U/L Normal 10-54 [facility] Comment on above: Order Comment: Speci men Type: BLOOD SPECIMENOrdering Facility: [facility] Address: [address] [place] [address] Performed By: #### 2 4323-8 ####[facility] LABCLIA [id number] [place] [address] [place] Anion gap [Moles/Vol] 12 mmol/L Normal 8-15 [facility] Comment on above: Order Comment: Speci men Type: BLOOD SPECIMENOrdering Facility: [facility] Address: [address] [place], [place] [address] Performed By: #### 2 4323-8 ####[facility] LABCLIA [id number] [place] [address] [place] AST [Catalytic activity/Vol] 19 U/L Normal 14-40 [facility] Comment on above: Order Comment: Speci men Type: BLOOD SPECIMENOrdering Facility: [facility] Address: [address] [place] [address] Performed By: #### 2 4323-8 ####[facility] LABCLIA [id number] [place] [address] [place] Bilirubin [Mass/Vol] 0.6 mg/dL Normal 0.2-1.3 [facility] Comment on above: Order Comment: Speci men Type: BLOOD SPECIMENOrdering Facility: [facility] Address: [address] [place] [address] Performed By: #### 2 4323-8 ####[facility] LABCLIA [id number] [place] [address] [place] Calcium [Mass/Vol] 9.1 mg/dL Normal 8.5-10.2 [facility] Comment on above: Order Comment: Speci men Type: BLOOD SPECIMENOrdering Facility: [facility] Address: [address] [place] [address] Performed By: #### 2 4323-8 ####[facility] LABCLIA [id number] [place] [address] [place] Chloride [Moles/Vol] 105 mmol/L Normal 98-107 [facility] Comment on above: Order Comment: Speci men Type: BLOOD SPECIMENOrdering Facility: [facility] Address: [address] [place] [address] Performed By: #### 2 4323-8 ####[facility] LABCLIA [id number] [place] [address] [place] CO2 [Moles/Vol] 21 mmol/L Low 22-30 [facility] Comment on above: Order Comment: Speci men Type: BLOOD SPECIMENOrdering Facility: [facility] Address: [address] [place] [address] Performed By: #### 2 4323-8 ####[facility] LABIA [id number] [place] [address] [place] Creatinine [Mass/Vol] 0.73 mg/dL Normal 0.73-1.22 [facility] Comment on above: Order Comment: Speci men Type: BLOOD SPECIMENOrdering Facility: [facility] Address: [address] [place] [address] Performed By: #### 2 4323-8 ####[facility] LABIA [id number] [place] [address] [place] Creatinine and Glomerular filtration rate.predicted panel (S/P/Bld) 88 mL/min/1.73m??? Normal >=60 [facility] Comment on above: Order Comment: Speci men Type: BLOOD SPECIMENOrdering Facility: [facility] Address: [address] [place] [address] Result Comment: Angie mated Glomerular Filtration Rate [...] actual GFR. Performed By: #### 2 4323-8 ####[facility] LABIA [id number] [place] [address] [place] Glucose [Mass/Vol] 235 mg/dL High 74-99 [facility] Comment on above: Order Comment: Speci men Type: BLOOD SPECIMENOrdering Facility: [facility] Address: [address] [place] [address] Result Comment: The [place] Diabetes [employer] (ADA) provides guidance for cutoff [...] Standards of Medical Care in Diabetes 2016, [place] [employer]. Diabetes Care. 2016.39(Suppl 1). Performed By: #### 2 4323-8 ####[facility] LABCLIA [id number] [place] [address] [place] Potassium [Moles/Vol] 4.5 mmol/L Normal 3.7-5.1 [facility] Comment on above: Order Comment: Speci men Type: BLOOD SPECIMENOrdering Facility: [facility] Address: [address] [place] [address] Performed By: #### 2 432-8 ####[facility] LABIA [id number] [place] [id number] [place] Protein [Mass/Vol] 6.9 g/dL Normal 6.3-8.0 [facility] Comment on above: Order Comment: Tyrai men Type: BLOOD SPECIMENOrdering Facility: [facility] Address: [address] [place] [address] Performed By: #### 2 4323-8 ####[facility] LABCLIA [id number] [place] [address] [place] Sodium [Moles/Vol] 138 mmol/L Normal 136-144 [facility] Comment on above: Order Comment: Speci men Type: BLOOD SPECIMENOrdering Facility: [facility] Address: [address] [place] [address] Performed By: #### 2 4323-8 ####[facility] LABCLIA [id number] [place] [id number] [place] Urea nitrogen [Mass/Vol] 16 mg/dL Normal 9-24 [facility] Comment on above: Order Comment: Speci men Type: BLOOD SPECIMENOrdering Facility: [facility] Address: [address] [place] [address] Performed By: #### 2 4323-8 ####[facility] LABCLIA [id number] [place] [address] [place] Urinalysis complete panel (U )on 03-24-2024 Bacteria LM.HPF (Urine sed) [#/Area] Negative Normal Negative [facility] Comment on above: Order Comment: Speci men Type: URINE SPECIMENOrdering Facility: [facility] Address: [address] [place] [address] Performed By: #### 2 4356-8 ####[facility] LABCLIA [id number] [place] [address] [place] Bilirubin Ql (U) Negative Normal Negative [facility] Comment on above: Order Comment: Speci men Type: URINE SPECIMENOrdering Facility: [facility] Address: [address] [place] [address] Performed By: #### 2 4356-8 ####[facility] LABCLIA [id number] [place] [address] [place] Clarity (Unsp spec) Clear Normal Clear [facility] Comment on above: Order Comment: Speci men Type: URINE SPECIMENOrdering Facility: [facility] Address: [address] [place] [address] Performed By: #### 2 4356-8 ####[facility] LABCLIA [id number] [place] [address] [place] Color (U) Yellow Normal Yellow [facility] Comment on above: Order Comment: Speci men Type: URINE SPECIMENOrdering Facility: [facility] Address: [address] [place] [address] Performed By: #### 2 4356-8 ####[facility] LABCLIA [id number] [place] [address] [place] Epithelial cells LM.HPF (Urine sed) [#/Area] None Seen Normal [facility] Comment on above: Order Comment: Speci men Type: URINE SPECIMENOrdering Facility: [facility] Address: [address] [place] [address] Performed By: #### 2 4356-8 ####[facility] LABCLIA [id number] [place] [address] [place] Glucose Test strip (U) [Mass/Vol] Negative Normal Negative [facility] Comment on above: Order Comment: Speci men Type: URINE SPECIMENOrdering Facility: [facility] Address: [address] [place] [address] Performed By: #### 2 4356-8 ####[facility] LABCLIA [id number] [place] [address] [place] Hemoglobin Ql (U) Negative Normal Negative [facility] Comment on above: Order Comment: Speci men Type: URINE SPECIMENOrdering Facility: [facility] Address: [address] [place] [address] Performed By: #### 2 4356-8 ####[facility] LABCLIA [id number] [place] [address] [place] Hyaline casts (Urine sed) [#/Area] 0 /[LPF] Normal 0 /LPF [facility] Comment on above: Order Comment: Speci men Type: URINE SPECIMENOrdering Facility: [facility] Address: [address] [place] [address] Performed By: #### 2 4356-8 ####[facility] LABCLIA [id number] [place] [address] [place] Ketones Ql (U) Negative Normal Negative [facility] Comment on above: Order Comment: Speci men Type: URINE SPECIMENOrdering Facility: [facility] Address: [address] [place] [address] Performed By: #### 2 4356-8 ####[facility] LABCLIA [id number] [place] [address] [place] Leukocyte esterase Test strip Ql (U) Negative Normal Negative [facility] Comment on above: Order Comment: Speci men Type: URINE SPECIMENOrdering Facility: [facility] Address: [address] [place] [address] Performed By: #### 2 4356-8 ####[facility] LABCLIA [id number] [place] [address] [place] Nitrite Ql (U) Negative Normal Negative [facility] Comment on above: Order Comment: Speci men Type: URINE SPECIMENOrdering Facility: [facility] Address: [address] [place] [address] Performed By: #### 2 4356-8 ####[facility] LABCLIA [id number] [place] [address] [place] pH (U) 6.0 [pH] Normal <8.5 [facility] Comment on above: Order Comment: Speci men Type: URINE SPECIMENOrdering Facility: [facility] Address: [address] [place] [address] Performed By: #### 2 4356-8 ####[facility] LABIA [id number] [place] [address] [place] Protein (U) [Mass/Vol] Negative Normal Negative [facility] Comment on above: Order Comment: Speci men Type: URINE SPECIMENOrdering Facility: [facility] Address: [address] [place] [address] Performed By: #### 2 4356-8 ####[facility] LABCLIA [id number] [place] [address] [place] RBC LM.HPF (Urine sed) [#/Area] 0-2 /HPF Normal 0-2 /HPF [facility] Comment on above: Order Comment: Speci men Type: URINE SPECIMENOrdering Facility: [facility] Address: [address] [place] [address] Performed By: #### 2 4356-8 ####[facility] [id number] [place] [address] [place] Specific gravity (U) [Rel density] 1.030 Normal 1.005-1.030 [facility] Comment on above: Order Comment: Speci men Type: URINE SPECIMENOrdering Facility: [facility] Address: [address] [place] [address] Performed By: #### 2 4356-8 ####[facility] [id number] [address] [place] Urobilinogen Ql (U) 1.0 EU/dL Normal 0.2-1.0 EU/dL [facility] Comment on above: Order Comment: Speci men Type: URINE SPECIMENOrdering Facility: [facility] Address: [address] [place] [address] Performed By: #### 2 4356-8 ####[facility] [id number] [place] [address] [place] WBC LM.HPF (Urine sed) [#/Area] 0-5 /HPF Normal 0-5 /HPF [facility] Comment on above: Order Comment: Speci men Type: URINE SPECIMENOrdering Facility: [facility] Address: [address] [place] [address] Performed By: #### 2 4356-8 ####[facility] [id number] [address] [place] CNOVon 03-23-2024 CNOV Office Visit ([facility] ) -------- ZACHARY MCDERMOTT ([id number]) 1935 M Date Time Provider Department 03/23/24 2:00 PM DIGNA CHAKRABORTY During your visit today, we recorded the following information about you: Temperature Pulse Respiration Blood pressure 99 degrees 97/minute 16/minute 122/66 Weight 79.4 kg Digna Chakraborty APRN.[employer] 03/23/2024 3:32 PM Signed This is a [...] Diagnosed a year ago, following with Oncology, [facility]. Follow up every 6 months. Seeing oncology [...] 08/27/2013 Anemia, unspecified 05/01/2009 Hct 34.9% in -, 37.7% in 05-19 (WBC 4.9, PLT 276) [...] breath CARDIOVA (more content not included)... Normal [facility] CNOV[facility] 12-[facility]20[facility] TOREYBETIPeggy Ellington ([id number]) 1935 M Date Time Provider Department 12/28/23 3:00 PM HEIDY SINGLETON During your visit today, we recorded the following information about you: Pulse Respiration Blood pressure Weight 95/minute 16/minute 108/82 79.4 kg Heidy Singleton APRN.[employer] 12/28/2023 4:21 PM Signed This is a [...] Head: Normoceph (more content not included)... Normal [facility] CBC panel Auto (Bld)on 12-23 Erythrocyte distribution width (RBC) [Ratio] 13.4 % Normal 11.5-15.0 [facility] Comment on above: Order Comment: Speci men Type: BLOOD SPECIMENOrdering Facility: [facility] Address: [address] [place] [address] Performed By: #### 5 8410-2 ####[facility] LABIA [id number] [place] [address] [place] Hematocrit (Bld) [Volume fraction] 43.6 % Normal 39.0-51.0 [facility] Comment on above: Order Comment: Speci men Type: BLOOD SPECIMENOrdering Facility: [facility] Address: [address] [place] [address] Performed By: #### 5 8410-2 ####[facility] LABIA [id number] [place] [address] [place] Hemoglobin (Bld) [Mass/Vol] 14.4 g/dL Normal 13.0-17.0 [facility] Comment on above: Order Comment: Speci men Type: BLOOD SPECIMENOrdering Facility: [facility] Address: [address] [place] [address] Performed By: #### 5 8410-2 ####[facility] LABIA [id number] [place] [address] [place] MCH (RBC) [Entitic mass] 31.0 pg Normal 26.0-34.0 [facility] Comment on above: Order Comment: Speci men Type: BLOOD SPECIMENOrdering Facility: [facility] Address: [address] [place] [address] Performed By: #### 5 8410-2 ####[facility] LABIA [id number] [place] [address] [place] MCHC (RBC) [Mass/Vol] 33.0 g/dL Normal 30.5-36.0 [facility] Comment on above: Order Comment: Speci men Type: BLOOD SPECIMENOrdering Facility: [facility] Address: [address] [place] [address] Performed By: #### 5 8410-2 ####[facility] LABCLIA [id number] [place] [address] [place] MCV (RBC) [Entitic vol] 94.0 fL Normal 80.0-100.0 [facility] Comment on above: Order Comment: Speci men Type: BLOOD SPECIMENOrdering Facility: [facility] Address: [address] [place] [address] Performed By: #### 5 8410-2 ####[facility] LABCLIA [id number] [place] [address] [place] Nucleated RBC (Bld) [#/Vol] 10*3/uL Normal <0.01 [facility] Comment on above: Order Comment: Speci men Type: BLOOD SPECIMENOrdering Facility: [facility] Address: [address] [place] [address] Performed By: #### 5 8410-2 ####[facility] LABIA [id number] [place] [address] [place] Platelet mean volume (Bld) [Entitic vol] 11.7 fL Normal 9.0-12.7 [facility] Comment on above: Order Comment: Speci men Type: BLOOD SPECIMENOrdering Facility: [facility] Address: [address] [place] [address] Performed By: #### 5 8410-2 ####[facility] LABCLIA [id number] [place] [address] [place] Platelets (Bld) [#/Vol] 248 10*3/uL Normal 150-400 [facility] Comment on above: Order Comment: Speci men Type: BLOOD SPECIMENOrdering Facility: [facility] Address: [address] [place] [address] Performed By: #### 5 8410-2 ####[facility] LABCLIA [id number] [place] [address] [place] RBC (Bld) [#/Vol] 4.64 10*6/uL Normal 4.20-6.00 [facility] Comment on above: Order Comment: Speci men Type: BLOOD SPECIMENOrdering Facility: [facility] Address: [address] [place] [address] Performed By: #### 5 8410-2 ####[facility] LABIA [id number] [place] [address] [place] WBC (Bld) [#/Vol] 9.12 10*3/uL Normal 3.70-11.00 [facility] Comment on above: Order Comment: Speci men Type: BLOOD SPECIMENOrdering Facility: [facility] Address: [address] [place] [address] Performed By: #### 5 8410-2 ####[facility] LABIA [id number] [place] [address] [place] Comprehensive metabolic 2000 panelon 12-24-2023 Albumin [Mass/Vol] 4.1 g/dL Normal 3.9-4.9 [facility] Comment on above: Order Comment: Speci men Type: BLOOD SPECIMENOrdering Facility: [facility] Address: [address] [place] [address] Performed By: #### 2 4323-8, 09252-4 ####[facility] LABIA [id number] [place] [address] [place] ALP [Catalytic activity/Vol] 83 U/L Normal 38-113 [facility] Comment on above: Order Comment: Speci men Type: BLOOD SPECIMENOrdering Facility: [facility] Address: [address] [place] [address] Performed By: #### 2 4323-8, 62029-4 ####[facility] LABCLIA [id number] [facility] [address] [address] [place] ALT [Catalytic activity/Vol] 49 U/L Normal 10-54 [facility] Comment on above: Order Comment: Speci men Type: BLOOD SPECIMENOrdering Facility: [facility] Address: [address] [place] [id number] Performed By: #### 2 4323-8, 83400-1 ####[facility] LABCLIA [id number] [facility] [place] [address] [place] Anion gap [Moles/Vol] 11 mmol/L Normal 9-18 [facility] Comment on above: Order Comment: Speci men Type: BLOOD SPECIMENOrdering Facility: [facility] Address: [address] [place] [address] Performed By: #### 2 4323-8, 78480-7 ####[facility] LABCLIA [id number] [place] [id number] [place] AST [Catalytic activity/Vol] 28 U/L Normal 14-40 [facility] Comment on above: Order Comment: Speci men Type: BLOOD SPECIMENOrdering Facility: [facility] Address: [address] [place], [place] [address] Performed By: #### 2 4323-8, 58017-5 ####[facility] LABCLIA [id number] [facility] [place] [id number] [place] Bilirubin [Mass/Vol] 0.7 mg/dL Normal 0.2-1.3 [facility] Comment on above: Order Comment: Speci men Type: BLOOD SPECIMENOrdering Facility: [facility] Address: [address] [place] [id number] Performed By: #### 2 4323-8, 49428-0 ####[facility] LABCLIA [id number] [place] [address] [place] Calcium [Mass/Vol] 9.6 mg/dL Normal 8.5-10.2 [facility] Comment on above: Order Comment: Speci men Type: BLOOD SPECIMENOrdering Facility: [facility] Address: [address] [place] [address] Performed By: #### 2 4323-8, 76085-4 ####[facility] LABCLIA [id number] [place] [address] [place] Chloride [Moles/Vol] 105 mmol/L Normal 97-105 [facility] Comment on above: Order Comment: Speci men Type: BLOOD SPECIMENOrdering Facility: [facility] Address: [address] [place] [address] Performed By: #### 2 4323-8, 49630-9 ####[facility] LABCLIA [id number] [place] [address] [place] CO2 [Moles/Vol] 24 mmol/L Normal 22-30 [facility] Comment on above: Order Comment: Speci men Type: BLOOD SPECIMENOrdering Facility: [facility] Address: [address] [place] [address] Performed By: #### 2 4323-8, 96635-4 ####[facility] LABCLIA [id number] [place] [address] [place] Creatinine [Mass/Vol] 0.74 mg/dL Normal 0.73-1.22 [facility] Comment on above: Order Comment: Speci men Type: BLOOD SPECIMENOrdering Facility: [facility] Address: [address] [place] [address] Performed By: #### 2 4323-8, 52349-9 ####[facility] LABCLIA [id number] [place] [address] [place] Creatinine and Glomerular filtration rate.predicted panel (S/P/Bld) 87 mL/min/1.73m??? Normal >=60 [facility] Comment on above: Order Comment: Julito ann Type: BLOOD SPECIMENOrdering Facility: [facility] Address: [address] [place] [address] Result Comment: Angie mated Glomerular Filtration Rate [...] actual GFR. Performed By: #### 2 4323-8, 70491-7 ####[facility] LABCLIA [id number] [place] [address] [place] Glucose [Mass/Vol] 181 mg/dL High 74-99 [facility] Comment on above: Order Comment: Julito ann Type: BLOOD SPECIMENOrdering Facility: [facility] Address: [address] [place] [address] Result Comment: The [place] Diabetes Association (ADA) provides guidance for cutoff [...] Standards of Medical Care in Diabetes 2016, [place] Diabetes Association. Diabetes Care. 2016.39(Suppl 1). Performed By: #### 2 4323-8, 27001-7 ####[facility] LABIA [id number] [place] [address] [place] Potassium [Moles/Vol] 4.9 mmol/L Normal 3.7-5.1 [facility] Comment on above: Order Comment: Julito ann Type: BLOOD SPECIMENOrdering Facility: [facility] Address: [address] [place] [id number] Performed By: #### 2 4323-8, 93788-2 ####[facility] LABCLIA [id number] [place] [address] [place] Protein [Mass/Vol] 7.0 g/dL Normal 6.3-8.0 [facility] Comment on above: Order Comment: Speci men Type: BLOOD SPECIMENOrdering Facility: [facility] Address: [address] [place] [address] Performed By: #### 2 4323-8, 24561-5 ####[facility] LABIA [id number] [place] [address] [place] Sodium [Moles/Vol] 140 mmol/L Normal 136-144 [facility] Comment on above: Order Comment: Speci men Type: BLOOD SPECIMENOrdering Facility: [facility] Address: [address] [place] [address] Performed By: #### 2 4323-8, 85247-7 ####[facility] LABIA [id number] [place] [address] [place] Urea nitrogen [Mass/Vol] 15 mg/dL Normal 9-24 [facility] Comment on above: Order Comment: Speci men Type: BLOOD SPECIMENOrdering Facility: [facility] Address: [address] [place] [address] Performed By: #### 2 4323-8, 47172-0 ####[facility] LABIA [id number] [place] [address] [place] HbA1c (Bld)on 12-24-2023 Average glucose Estimated from glycated hemoglobin (Bld) [Mass/Vol] 171 mg/dL Normal [facility] Comment on above: Order Comment: Speci men Type: BLOOD SPECIMENOrdering Facility: [facility] Address: [address] [place] [address] Result Comment: eAG: (Estimated average glucose) is a calculated value from HgbA1c and is benefits representative of the average blood glucose level in the last 2-3 month period. Performed By: #### 5 5454-3 ####[facility] LABCLIA [id number] [place] [address] [place] HbA1c (Bld) [Mass fraction] 7.6 % High 4.3-5.6 [facility] Comment on above: Order Comment: Julito ann Type: BLOOD SPECIMENOrdering Facility: [facility] Address: [address] [place] [address] Result Comment: [place] Diabetes Association guidelines indicate that patients with HgbA1c in the range 5.7-6.4% are at increased risk for development of diabetes, and intervention by lifestyle modification may be beneficial. HgbA1c greater or equal to 6.5% is considered diagnostic of diabetes. Performed By: #### 5 5454-3 ####[facility] LABIA [id number] [place] [address] [place] Lipid 1996 panelon 4 Cholesterol [Mass/Vol] 95 mg/dL Normal <200 [facility] Comment on above: Order Comment: Julito ann Type: BLOOD SPECIMENOrdering Facility: [facility] Address: [address] [place] [address] Result Comment: <200 mg/dL, Desirable 200-239 mg/dL, Borderline high >239 mg/dL, High Performed By: #### 2 4323-8, 12895-1 ####[facility] LABIA [id number] [place] [address] [place] Cholesterol in HDL [Mass/Vol] 33 mg/dL Low >39 [facility] Comment on above: Order Comment: Julito ann Type: BLOOD SPECIMENOrdering Facility: [facility] Address: [address] [place] [address] Result Comment: 40-5 9 mg/dL, Acceptable >59 mg/dL, High: Negative risk factor for coronary heart disease <40 mg/dL, Low: Positive risk factor for coronary heart disease Performed By: #### 2 4323-8, 85828-2 ####[facility] LABCLIA [id number] [place] [address] [place] Cholesterol in LDL [Mass/Vol] 35 mg/dL Normal <100 [facility] Comment on above: Order Comment: Speci men Type: BLOOD SPECIMENOrdering Facility: [facility] Address: [address] [place] [address] Result Comment: <100 mg/dL, Optimal 100-129 mg/dL, Near optimal/above optimal 130-159 mg/dL, Borderline high 160-189 mg/dL, High >189 mg/dL, Very high Secondary prevention optimal LDL Cholesterol levels are recommended to be < 70 mg/dL Performed By: #### 2 4323-8, 74661-7 ####[facility] LABCLIA [id number] [address] [place] [facility] Cholesterol in LDL/Cholesterol in HDL [Mass ratio] 1.06 {ratio} Normal <2.54 [facility] Comment on above: Order Comment: Speci men Type: BLOOD SPECIMENOrdering Facility: [facility] Address: [address] [place] [address] Result Comment: Nusrat zimmer: 1. National Cholesterol Education Program ATP III Guideline At-A-Glance Quick Desk Reference: National Heart, Lung, and Blood [place]. National Institutes of Health. 2001: NIH Publication No. 01-3305. 2. An International Atherosclerosis Society position paper: global recommendations for the management of dyslipidemia: executive summary, Atherosclerosis. 2014: 232(2):410-413. Performed By: #### 2 4323-8, 55253-6 ####[facility] LABCLIA [id number] [place] [address] [place] Cholesterol in VLDL [Mass/Vol] 27 mg/dL Normal <30 [facility] Comment on above: Order Comment: Speci men Type: BLOOD SPECIMENOrdering Facility: [facility] Address: [address] [place] [address] Performed By: #### 2 4323-8, 59633-7 ####[facility] LABCLIA [id number] [place] [id number] [place] Cholesterol non HDL [Mass/Vol] 62 mg/dL Normal <130 [facility] Comment on above: Order Comment: Speci men Type: BLOOD SPECIMENOrdering Facility: [facility] Address: [address] [place] [address] Result Comment: <130 mg/dL, Optimal 130-159 mg/dL, Near optimal/above optimal 160-189 mg/dL, Borderline high 190-219 mg/dL, High >219 mg/dL, Very high Secondary prevention optimal non HDL Cholesterol levels are recommended to be <100 mg/dL Performed By: #### 2 4323-8, 44403-7 ####[facility] LABCLIA [id number] [place] [address] [place] Cholesterol.total/Chol esterol in HDL [Mass ratio] 2.88 {ratio} Normal <5.10 [facility] Comment on above: Order Comment: Speci men Type: BLOOD SPECIMENOrdering Facility: [facility] Address: [address] [place] [address] Performed By: #### 2 4323-8, 78791-5 ####[facility] LABCLIA [id number] [place] [address] [place] FASTING TIME 13 hrs Normal [facility] Comment on above: Order Comment: Speci men Type: BLOOD SPECIMENOrdering Facility: [facility] Address: [address] [place] [id number] Performed By: #### 2 4323-8, 77593-3 ####[facility] LABCLIA [id number] [place] [address] [place] Triglyceride [Mass/Vol] 135 mg/dL Normal <150 [facility] Comment on above: Order Comment: Speci men Type: BLOOD SPECIMENOrdering Facility: [facility] Address: [address] [id number] Result Comment: <150 mg/dL, Normal 150-199 mg/dL, Borderline high 200-499 mg/dL, High >499 mg/dL, Very high Performed By: #### 2 4323-8, 94867-7 ####[facility] LABCLIA [id number] [address] [id number] [id number] [place] CNOVon 12-11-2023 CNOV Office Visit (FAMPWS ) -------- ZACHARY MCDERMOTT ([id number]) 1935 M Date Time Provider Department 12/11/23 11:00 AM [facility] your visit today, we recorded the following information about you: Pulse Respiration Blood pressure Weight 96/minute 18/minute 118/78 81.2 kg Emilia Jacob MD 12/11/2023 12:01 PM Signed Chief Complaint Patient presents with: Cough HPI Zachary Barreraton is a 88 year old male who [...] Health Main (more content not included)... Normal [facility] Dante 11-24-2023 AIDAN Telephone (FAMPWS) -------- ZACHARY MCDERMOTT ([id number]) 1935 M Date Time Provider Department 11/24/23 EMILIA JACOB FAMPWS During your visit today, we recorded the following information about you: Sahu, Cherelle 11/24/2023 2:36 PM Signed Patti is calling Emilia Jacob MD today with concern regarding Medication Problem: Trulicity is still out of stock. Asking for clinical to please call and advise on what to do. Patient has been identified by name and birthdate. Duration of symptoms: N/A Person calling: spouse: Patti Call patient at: at home [phone] (home) [phone] (cell) Was an appointment scheduled: No Closing statement: Results or non-symptom based questions: Thank you for calling [facility], your call will be returned within the [...] left for pt to call back. Carolyn Castillo Ma, Ma 11/29/2023 2:02 PM Signed Spoke with Patti, [...] 07/14/2012 07/0 (more content not included)... Normal [facility] Absolute lymphocyte countOrd ered By: Caitlin Thomas on 11-22-2023 Lymphocytes Auto (Unsp spec) [#/Vol] 0.96 10*3/uL 0.83-4.51 [facility] Automated lymphocyte count a s percentage of total leukocytesOrdered By: Caitlin Thomas on 11-22-2023 Lymphocytes/100 WBC Auto (Unsp spec) 11.8 % 19-41 [facility] Basophil percentageOrdered B y: Caitlin Thomas on 11-22-2023 Basophils/100 WBC (Bld) 0.7 % 0-1 [facility] Chloride [Moles/Vol] 106 mmol/L 98-107 [facility] Eosinophils/100 WBC (Bld) 1.0 % 0-5 [facility] Glucose [Mass/Vol] 297 mg/dL 74-106 [facility] Comment on above: Glucose result great er than or equal to 200 mg/dLsuggests DIABETES MELLITUS per A.D.A. criteria. Hemoglobin (Bld) [Mass/Vol] 14.3 g/dL 13.0-16.5 [facility] Monocytes/100 WBC (Bld) 6.1 % 0-10 [facility] Neutrophils (Bld) [#/Vol] 6.5 10*3/uL 2.0-7.7 [facility] Neutrophils/100 WBC (Bld) 79.7 % 47-70 [facility] Potassium [Moles/Vol] 3.8 mmol/L 3.5-5.1 [facility] Sodium [Moles/Vol] 137 mmol/L 136-145 [facility] WBC (Bld) [#/Vol] 8.2 10*3/uL 4.4-11.0 [facility] Determination of erythrocyte mean corpuscular volume (MCV)Ordered By: Caitlin Thomas on 11-22-2023 MCV (RBC) [Entitic vol] 91.1 fL 80-94 [facility] Erythrocyte distribution wid th ratioOrdered By: Caitlin Thomas on 11-22-2023 Erythrocyte distribution width (RBC) [Ratio] 13.6 % 11.6-14.6 [facility] Erythrocyte distribution wid th standard deviationOrdered By: Caitlin Thomas on 11-22-2023 Erythrocyte distribution width (RBC) [Entitic vol] 45.9 fL 35.1-43.9 [facility] Hematocrit Auto (Bld) [Volum e fraction]Ordered By: Caitlin Thomas on 11-22-2023 Hematocrit (Bld) [Volume fraction] 44.0 % 40-54 [facility] Immature granulocytes/100 WB C Auto (Bld)Ordered By: Caitlin Thomas on 11-22-2023 Immature granulocytes/100 WBC (Bld) 0.700 % 0.0-0.9 [facility] Comment on above: IG% - Immature Granu locytes (promyelocytes, myelocytes and metamyelocytes) > 1% indicates that a LEFT SHIFT is Present. Laboratory - Chemistry and C hemistry - challengeOrdered By: Caitlin Thomas on 11-22-2023 CO2 [Moles/Vol] 23.0 mmol/L 21.0-32.0 [facility] Natriuretic peptide B (Bld) [Mass/Vol] 16.7 pg/mL 0-100 [facility] Urea nitrogen/Creatinine [Mass ratio] 15.9 mg/mg 10-20 [facility] Laboratory - Hematology and Cell countsOrdered By: Caitlin Thomas on 11-22-2023 MCH (RBC) [Entitic mass] 29.6 pg 27.0-32.0 [facility] MCHC (RBC) [Mass/Vol] 32.5 g/dL 32-36 [facility] Nucleated RBC/100 WBC (Bld) [Ratio] 0 % 0-5 [facility] Platelet mean volume (Bld) [Entitic vol] 11.0 fL 6.2-12.0 [facility] Platelets (Bld) [#/Vol] 268 10*3/uL 150-450 [facility] No Panel InformationOrdered By: Caitlin Thomas on 11-22-2023 Estimated GFR (MDRD) Amer 84 mL/min >60 [facility] Comment on above: GFR Calc Estimated GFR (MDRD) Non-Af Amer 69 mL/min >60 [facility] Comment on above: Non- GFR Calc RBC Auto (Bld) [#/Vol]Ordere d By: Caitlin Thomas on 11-22-2023 RBC (Bld) [#/Vol] 4.83 10*6/uL 4.6-6.2 [facility] Serum or plasma calcium hunter urement (mass/volume)Ordered By: Caitlin Thomas on 11-22-2023 Calcium [Mass/Vol] 8.9 mg/dL 8.5-10.1 [facility] Serum or plasma creatinine m easurement (mass/volume)Ordered By: Caitlin Thomas on 11-22-2023 Creatinine [Mass/Vol] 1.07 mg/dL 0.70-1.30 [facility] Comment on above: The validity of the calculated GFR & GFRAA in patients over 70 years has not been determined. Clinical correlation is essential. Serum or plasma urea nitroge n measurement (mass/volume)Ordered By: Caitlin Thomas on 11-22-2023 Urea nitrogen [Mass/Vol] 17 mg/dL 7-18 [facility] Thin prep Papanicolaou smear with manual screeningOrdered By: Caitlin Thomas on 11-22-2023 Thin prep Papanicolaou smear with manual screening 8 5-15 [facility] CNOVon 11-19-2023 CNOV Office Visit (FAMPWS ) -------- MCDERMOTTZACHARY Chandana ([id number]) 1935 M Date Time Provider Department 11/19/23 1:40 PM [facility] During your visit today, we recorded the following information about you: Pulse Respiration Blood pressure 80/minute 18/minute 118/70 Emilia Jacob MD 11/19/2023 2:03 PM Signed Chief Complaint Patient presents with: Hospital Follow Up HPI Zacharypeggy Mcdermott is a 88 year old male who presents here today for a hospital follow up. Pt here today with for a [facility] ED follow up. Here today with his daughter, Maeve. Pt seen at [facility] ED on 11/16/23 after he fell on his rollator earlier that day. He started experiencing left sided rib pain. Denies hitting his head or having LOC. X-rays were completed showing left 9th rib fx. Pt was d/c home with Brewster 5-325 mg #12. Pt reports that he's still having a lot of pain, described as sharp. Notes that if he turns the wrong way this makes the sharp pain occur. Overall pain described as a deep ache. Does have some pain with taking deep breathing, but the Brewster seems to help reduce this. Sleeping in his recliner. They are concerned due to having only 1 day left of pain medication and they don't think his pain is going to improve significantly in 1 day. Currently using Brewster 5-325 mg 1 tab po every 6 [...] interprets and agrees. Patient will be given Brewster for pain. Return precautions are discussed. Discharged in dose in his care hydrocodone-acetaminophe n 5-325 mg tablet 1 tab PO Q6H [...] week. In (more content not included)... Normal [facility] Javier Basophil percentageOrdered B y: Andres Shipley on 11-01-2023 Creatinine [Mass/Vol] 1.3 mg/dL 0.70-1.30 [facility] Laboratory - Chemistry and C hemistry - challengeOrdered By: Andres Shipley on 11-01-2023 GFR/1.73 sq M.predicted among non-blacks MDRD (S/P/Bld) [Vol rate/Area] 56.0000 mL/min/{1.73_m2} >60 [facility] Dante 08-20-2023 [facility] -------- ZACHARY MCDERMOTT ([id number]) 1935 M Date Time Provider Department 08/20/23 KATHERYN LORAWSTR During your visit today, we recorded the following information about you: Katheryn Lora APRN.AIDA 08/20/2023 7:15 AM Signed Please notify of [...] Date Reviewed: 08/19/2023 Reviewed by: Katheryn Lora APRN.AIDA - Fully Assessed Reason for Visit: Results [...] Status:Closed by OLGA GIMENEZ LPN on 08/20/23 [facility] MOONon 08-19-2023 CNOV Office Visit (UCWSTR ) -------- ZACHARY MCDERMOTT ([id number]) 1935 M Date Time Provider Department 08/19/23 11:15 AM KATHERYN LORA [facility] During your visit today, we recorded the following information about you: Temperature Pulse Respiration Blood pressure 98.5 degrees 106/minute 18/minute 121/79 Weight 82.6 kg Katheryn Lora APRN.GARDENER FLORIST 08/19/2023 11:45 AM Signed Subjective The history is provided by the patient. No infantry senior sergeant was used. HPI Zachary Mcdermott is a [...] have confirmed and edited as necessary, the PSYCHIATRIC Review of Systems Constitutional: Positive for malaise/fatigue. [...] in 12-24 hours with results, available on [employer] - COVID AND INFLUENZA A/B AND RSV NAAT, ROUTINE Diagnosis and treatment plan were discussed and questions were answered to the patient's satisfaction. Pt acknowledged understanding of concepts and follow up plan. Specific signs and symptoms that would indicate the need for higher level of care were discussed in detail warranting prompt ER evaluation. KANDACE Nazario Tonya, APRN.CNP 08/19/2023 11:42 AM Signed Covid, rsv, and influenza test ordered You will be notified in 12-24 hours, results available on [employer] Home isolation until results are back Rest, [...] is fi (more content not included)... Normal [facility] ROUTINE FLU A/B + RSVon FLUAV RNA VEL+probe Ql (Unsp spec) Not detected Normal Not Detected [facility] Comment on above: Order Comment: Speci men Type: SWAB OF INTERNAL NOSEOrdering Facility: [facility] Address: [address] [place] [address] Performed By: #### R TFRSV, 80859-1 ####[facility] LABCLIA [id number] [facility] [id number] [address] [place] FLUBV RNA VEL+probe Ql (Unsp spec) Not detected Normal Not Detected [facility] Comment on above: Order Comment: Speci men Type: SWAB OF INTERNAL NOSEOrdering Facility: [facility] Address: [address] [place] [address] Performed By: #### R TFRSV, 06569-5 ####[facility] LABCLIA [id number] [place] [address] [place] RSV A RNA VEL+probe Ql (Unsp spec) Not detected Normal Not Detected [facility] Comment on above: Order Comment: Speci men Type: SWAB OF INTERNAL NOSEOrdering Facility: [facility] Address: [address] [place] [address] Performed By: #### R TFRSV, 69950-6 ####[facility] [id number] [place] [address] [place] SARS-CoV-2 RNA Resp Ql VEL+p robeon 08-19-2023 SARS-CoV-2 (COVID-19) RNA VEL+probe Ql (Resp) COVID 19 RESULT: Not detected The method used is RT-PCR or an equivalent NAAT method. Reference Range (the expected result in uninfected individuals): Not detected Normal [facility] Comment on above: Performed By: #### R TFRSV, 93676-8 ####[facility] [id number] [place] [address] [place] Basophil percentageOrdered B y: Andres Shipley on 07-28-2023 Creatinine [Mass/Vol] 1.4 mg/dL 0.70-1.30 [facility] Laboratory - Chemistry and C hemistry - challengeOrdered By: Andres Shipley on 07-28-2023 GFR/1.73 sq M.predicted among non-blacks MDRD (S/P/Bld) [Vol rate/Area] 53.0000 mL/min/{1.73_m2} >60 [facility] CNOVon 06-29-2023 CNOV Office Visit (FAMPWS ) -------- ZACHARY MCDERMOTT ([id number]) 1935 M Date Time Provider Department 06/29/23 3:00 PM EMILIA JACOB During your visit today, we recorded the following information about you: Pulse Respiration Blood pressure Weight 76/minute 16/minute 126/80 82.1 kg Emilia Jacob MD 06/29/2023 6:03 PM Signed Chief Complaint Follow up HPI Zachary Mcdermott is a 87 year old male who presents here today for 6 month follow up. Went on river cruise in [place], going on [employer] cruise next month. No bowel, Gi, or [...] BID. Pt followed with Dr. Rick at [facility] due to a mass on his [...] an appt with Radiation Oncology tomorrow at [facility] to discuss. Past medical history, appointments, [...] Vaping Use (more content not included)... Normal [facility] ALBUMIN/CREAT RATIO RND URon 06-25-2023 Albumin DL <= 20 mg/L (U) [Mass/Vol] mg/dL Normal [facility] Comment on above: Order Comment: Speci men Type: URINE SPECIMENOrdering Facility: [facility] Address: [address] [place] [address] Performed By: #### U ACR ####[facility] LABCLIA [id number] [place] [address] [place] Albumin/Creatinine (U) [Mass ratio] <6 Normal <30 [facility] Comment on above: Order Comment: Speci men Type: URINE SPECIMENOrdering Facility: [facility] Address: [address] [place] [address] Result Comment: Adul t Male and Female Nephrotic Criteria: <30 mg/g is considered normal to mildly increased 30-300 mg/g is considered moderately increased >300 mg/g is considered severely increased KDIGO. (2013). KDIGO 2012 Clinical Practice Guideline for the Evaluation and Management of Chronic Kidney Disease. Official Journal of the International Society of Nephrology, 3(1), 1-150. Performed By: #### U ACR ####[facility] LABCLIA [id number] [place] [address] [place] Creatinine (U) [Mass/Vol] 188.5 mg/dL Normal 20.0-300.0 [facility] Comment on above: Order Comment: Speci men Type: URINE SPECIMENOrdering Facility: [facility] Address: [address] [place] [address] Performed By: #### U ACR ####[facility] LABCLIA [id number] [place] [address] [place] Comprehensive metabolic 2000 panelon 06-25-2023 Albumin [Mass/Vol] 4.0 g/dL Normal 3.9-4.9 [facility] Comment on above: Order Comment: Speci men Type: BLOOD SPECIMENOrdering Facility: [facility] Address: [address] [place] [address] Performed By: #### 2 4323-8, 72381-5 ####[facility] LABCLIA [id number] [place] [address] [place] ALP [Catalytic activity/Vol] 84 U/L Normal 38-113 [facility] Comment on above: Order Comment: Speci men Type: BLOOD SPECIMENOrdering Facility: [facility] Address: [address] [place] [address] Performed By: #### 2 4323-8, 09742-7 ####[facility] LABCLIA [id number] [address] [place] ALT [Catalytic activity/Vol] 39 U/L Normal 10-54 [facility] Comment on above: Order Comment: Speci men Type: BLOOD SPECIMENOrdering Facility: [facility] Address: [address] [place], [place] [address] Performed By: #### 2 4323-8, 76103-3 ####[facility] LABCLIA [id number] [place] [address] [place] Anion gap [Moles/Vol] 16 mmol/L Normal 9-18 [facility] Comment on above: Order Comment: Speci men Type: BLOOD SPECIMENOrdering Facility: [facility] Address: [address] [address] Performed By: #### 2 4323-8, 61184-3 ####[facility] LABCLIA [id number] [place] [address] [place] AST [Catalytic activity/Vol] 26 U/L Normal 14-40 [facility] Comment on above: Order Comment: Speci men Type: BLOOD SPECIMENOrdering Facility: [facility] Address: [address] [address] Performed By: #### 2 4323-8, 01317-2 ####[facility] LABIA [id number] [place] [address] [place] Bilirubin [Mass/Vol] 0.6 mg/dL Normal 0.2-1.3 [facility] Comment on above: Order Comment: Speci men Type: BLOOD SPECIMENOrdering Facility: [facility] Address: [address] [address] Performed By: #### 2 4323-8, 93775-9 ####[facility] LABCLIA [id number] [place] [address] [place] Calcium [Mass/Vol] 9.2 mg/dL Normal 8.5-10.2 [facility] Comment on above: Order Comment: Speci men Type: BLOOD SPECIMENOrdering Facility: [facility] Address: [address] Performed By: #### 2 4323-8, 72345-8 ####[facility] LABIA [id number] [place] [address] [place] Chloride [Moles/Vol] 104 mmol/L Normal 97-105 [facility] Comment on above: Order Comment: Speci men Type: BLOOD SPECIMENOrdering Facility: [facility] Address: [address] Performed By: #### 2 4323-8, ####[facility] LABCLIA [id number] [place] [address] [place] CO2 [Moles/Vol] 21 mmol/L Low 22-30 [facility] Comment on above: Order Comment: Speci men Type: BLOOD SPECIMENOrdering Facility: [facility] Address: [address] [place] [address] Performed By: #### 2 4328, ####[facility] LABIA [id number] [place] [address] [place] Creatinine [Mass/Vol] 0.90 mg/dL Normal 0.73-1.22 [facility] Comment on above: Order Comment: Speci men Type: BLOOD SPECIMENOrdering Facility: [facility] Address: [address] [place] [address] Performed By: #### 2 4328, ####[facility] LABIA [id number] [place] [address] [place] Creatinine and Glomerular filtration rate.predicted panel (S/P/Bld) 83 mL/min/1.73m??? Normal >=60 [facility] Comment on above: Order Comment: Speci men Type: BLOOD SPECIMENOrdering Facility: [facility] Address: [address] [place] [address] Result Comment: Angie mated Glomerular Filtration Rate [...] actual GFR. Performed By: #### 2 4323-8, ####[facility] LABIA [id number] [place] [address] [place] Glucose [Mass/Vol] 126 mg/dL High 74-99 [facility] Comment on above: Order Comment: Julito ann Type: BLOOD SPECIMENOrdering Facility: [facility] Address: [address] [address] Result Comment: The [place] Diabetes Association (ADA) provides guidance for cutoff [...] Standards of Medical Care in Diabetes 2016, [place] [employer]. Diabetes Care. 2016.39(Suppl 1). Performed By: #### 2 4323-8, 73948-5 ####[facility] LABCLIA [id number] [place] [address] [place] Potassium [Moles/Vol] 4.9 mmol/L Normal 3.7-5.1 [facility] Comment on above: Order Comment: Julito ann Type: BLOOD SPECIMENOrdering Facility: [facility] Address: [address] Performed By: #### 2 4323-8, 76224-6 ####[facility] LABCLIA [id number] [place] [address] [place] Protein [Mass/Vol] 6.8 g/dL Normal 6.3-8.0 [facility] Comment on above: Order Comment: Julito ann Type: BLOOD SPECIMENOrdering Facility: [facility] Address: [address] [address] Performed By: #### 2 4323-8, 07926-4 ####[facility] LABCLIA [id number] [place] [address] [place] Sodium [Moles/Vol] 141 mmol/L Normal 136-144 [facility] Comment on above: Order Comment: Speci men Type: BLOOD SPECIMENOrdering Facility: [facility] Address: [address] [address] Performed By: #### 2 4323-8, 91127-6 ####[facility] LABCLIA [id number] [address] [place] Urea nitrogen [Mass/Vol] 13 mg/dL Normal 9-24 [facility] Comment on above: Order Comment: Tyrai men Type: BLOOD SPECIMENOrdering Facility: [facility] Address: [address] [place] [address] Performed By: #### 2 4323-8, 81361-4 ####[facility] LABIA [id number] [address] [place] HbA1c (Bld)on 06-25-2023 Average glucose Estimated from glycated hemoglobin (Bld) [Mass/Vol] 160 mg/dL Normal [facility] Comment on above: Order Comment: Tyrai men Type: BLOOD SPECIMENOrdering Facility: [facility] Address: [address] [place] [address] Result Comment: eAG: (Estimated average glucose) is a calculated value from HgbA1c and is benefits representative of the average blood glucose level in the last 2-3 month period. Performed By: #### 5 5454-3 ####[facility] LABIA [id number] [address] [place] HbA1c (Bld) [Mass fraction] 7.2 % High 4.3-5.6 [facility] Comment on above: Order Comment: Julito ann Type: BLOOD SPECIMENOrdering Facility: [facility] Address: [address] [place] [address] Result Comment: [place] Diabetes Association guidelines indicate that patients with HgbA1c in the range 5.7-6.4% are at increased risk for development of diabetes, and intervention by lifestyle modification may be beneficial. HgbA1c greater or equal to 6.5% is considered diagnostic of diabetes. Performed By: #### 5 5454-3 ####[facility] LABCLIA [id number] [place] [address] [place] Lipid 1996 panelon 3 Cholesterol [Mass/Vol] 94 mg/dL Normal <200 [facility] Comment on above: Order Comment: Speci men Type: BLOOD SPECIMENOrdering Facility: [facility] Address: [address] [place] [address] Result Comment: <200 mg/dL, Desirable 200-239 mg/dL, Borderline high >239 mg/dL, High Performed By: #### 2 4323-8, 52514-8 ####[facility] LABCLIA [id number] [address] Cholesterol in HDL [Mass/Vol] 36 mg/dL Low >39 [facility] Comment on above: Order Comment: Speci men Type: BLOOD SPECIMENOrdering Facility: [facility] Address: [address] [place] [address] Result Comment: 40-5 9 mg/dL, Acceptable >59 mg/dL, High: Negative risk factor for coronary heart disease <40 mg/dL, Low: Positive risk factor for coronary heart disease Performed By: #### 2 4323-8, 84367-2 ####[facility] LABCLIA [id number] [address] OF [facility] Cholesterol in LDL [Mass/Vol] 41 mg/dL Normal <100 [facility] Comment on above: Order Comment: Speci [facility] Type: BLOOD SPECIMENOrdering Facility: [facility] Address: [address] [place] [address] Result Comment: <100 mg/dL, Optimal 100-129 mg/dL, Near optimal/above optimal 130-159 mg/dL, Borderline high 160-189 mg/dL, High >189 mg/dL, Very high Secondary prevention optimal LDL Cholesterol levels are recommended to be < 70 mg/dL Performed By: #### 2 4323-8, 50205-7 ####[facility] LABCLIA [id number] [address] Cholesterol in LDL/Cholesterol in HDL [Mass ratio] 1.14 {ratio} Normal <2.54 [facility] Comment on above: Order Comment: Speci men Type: BLOOD SPECIMENOrdering Facility: [facility] Address: [address] [address] Result Comment: Refe rence: 1. National Cholesterol Education Program ATP III Guideline At-A-Glance Quick Desk Reference: National Heart, Lung, and Blood [place]. National Institutes of Health. 2001: NIH Publication No. 01-3305. 2. An International Atherosclerosis Society position paper: global recommendations for the management of dyslipidemia: executive summary, Atherosclerosis. 2014: 232(2):410-413. Performed By: #### 2 4323-8, 94416-5 ####[facility] LABCLIA [id number] [address] STATES OF [facility] Cholesterol in VLDL [Mass/Vol] 17 mg/dL Normal <30 [facility] Comment on above: Order Comment: Speci men Type: BLOOD SPECIMENOrdering Facility: [facility] Address: [address] [address] Performed By: #### 2 4323-8, ####[facility] LABCLIA [id number] [address] STATES [place] [facility] Cholesterol non HDL [Mass/Vol] 58 mg/dL Normal <130 [facility] Comment on above: Order Comment: Speci men Type: BLOOD SPECIMENOrdering Facility: [facility] Address: [address] [address] Result Comment: <130 mg/dL, Optimal 130-159 mg/dL, Near optimal/above optimal 160-189 mg/dL, Borderline high 190-219 mg/dL, High >219 mg/dL, Very high Secondary prevention optimal non HDL Cholesterol levels are recommended to be <100 mg/dL Performed By: #### 2 4323-8, 71718-7 ####[facility] LABCLIA [id number] [place] [address] [place] Cholesterol.total/Chol esterol in HDL [Mass ratio] 2.61 {ratio} Normal <5.10 [facility] Comment on above: Order Comment: Speci men Type: BLOOD SPECIMENOrdering Facility: [facility] Address: [address] [place] [address] Performed By: #### 2 4323-8, 54769-4 ####[facility] LABCLIA [id number] [place] [address] [place] FASTING TIME 14 hrs Normal [facility] Comment on above: Order Comment: Speci men Type: BLOOD SPECIMENOrdering Facility: [facility] Address: [address] [place] [address] Performed By: #### 2 4323-8, 03067-7 ####[facility] LABCLIA [id number] [address] [place] Triglyceride [Mass/Vol] 83 mg/dL Normal <150 [facility] Comment on above: Order Comment: Speci men Type: BLOOD SPECIMENOrdering Facility: [facility] Address: [address] [place] [address] Result Comment: <150 mg/dL, Normal 150-199 mg/dL, Borderline high 200-499 mg/dL, High >499 mg/dL, Very high Performed By: #### 2 4323-8, 35737-3 ####[facility] LABCLIA [id number] [place] [address] [place] Absolute lymphocyte countOrd ered By: Dr. Rick on 01-07-2023 Lymphocytes Auto (Unsp spec) [#/Vol] 1.60 10*3/uL 0.83-4.51 [facility] Basophil percentageOrdered B y: Dr. Rick on 01-07-2023 Basophils/100 WBC (Bld) 1.1 % 0-1 [facility] Eosinophils/100 WBC (Bld) 1.3 % 0-5 [facility] Neutrophils (Bld) [#/Vol] 5.7 10*3/uL 2.0-7.7 [facility] Neutrophils/100 WBC (Bld) 68.3 % 47-70 [facility] WBC (Bld) [#/Vol] 8.4 10*3/uL 4.4-11.0 [facility] Blood erythrocytes count (nu mber/volume)Ordered By: Dr. Rick on 01-07-2023 RBC (Bld) [#/Vol] 4.52 10*6/uL 4.6-6.2 [facility] Blood hemoglobin measurement (mass/volume)Ordered By: Dr. Rick on 01-07-2023 Hemoglobin (Bld) [Mass/Vol] 14.2 g/dL 13.0-16.5 [facility] Blood lymphocytes/100 leukoc ytesOrdered By: Dr. Rick on 01-07-2023 Lymphocytes/100 WBC (Bld) 19.0 % 19-41 [facility] Blood monocytes/100 leukocyt esOrdered By: Dr. Rick on 01-07-2023 Monocytes/100 WBC (Bld) 9.6 % 0-10 [facility] Blood platelet mean volumeOr dered By: Dr. Rick on 01-07-2023 Platelet mean volume (Bld) [Entitic vol] 10.2 fL 6.2-12.0 [facility] Determination of erythrocyte mean corpuscular volume (MCV)Ordered By: Dr. Rick on 01-07-2023 MCV (RBC) [Entitic vol] 93.6 fL 80-94 [facility] Hematocrit Auto (Bld) [Volum e fraction]Ordered By: Dr. Rick on 01-07-2023 Hematocrit (Bld) [Volume fraction] 42.3 % 40-54 [facility] INR in Blood by Coagulation assayOrdered By: Dr. Rick on 01-07-2023 INR Coag (Bld) [Relative time] 1.0 {INR} [facility] Laboratory - CoagulationOrde red By: Dr. Rick on 01-07-2023 aPTT Coag (Bld) [Time] 28.4 s 24.1-36.2 [facility] PT Coag (PPP) [Time] 13.1 s 11.7-14.9 [facility] Laboratory - Hematology and Cell countsOrdered By: Dr. Rick on 01-07-2023 Erythrocyte distribution width (RBC) [Entitic vol] 45.0 fL 35.1-43.9 [facility] Erythrocyte distribution width (RBC) [Ratio] 13.1 % 11.6-14.6 [facility] Immature granulocytes/100 WBC (Bld) 0.700 % 0.0-0.9 [facility] Comment on above: IG% - Immature Granu locytes (promyelocytes, myelocytes and metamyelocytes) > 1% indicates that a LEFT SHIFT is Present. MCH (RBC) [Entitic mass] 31.4 pg 27.0-32.0 [facility] Nucleated RBC/100 WBC (Bld) [Ratio] 0 % 0-5 [facility] MCHC Auto (RBC) [Mass/Vol]Or dered By: Dr. Rick on 01-07-2023 MCHC (RBC) [Mass/Vol] 33.6 g/dL 32-36 [facility] Platelets bldOrdered By: Dr. Rick on 01-07-2023 Platelets (Bld) [#/Vol] 244 10*3/uL 150-450 [facility] Absolute lymphocyte countOrd ered By: Dr. Rick on 12-30-2022 Lymphocytes Auto (Unsp spec) [#/Vol] 1.21 10*3/uL 0.83-4.51 [facility] Basophil percentageOrdered B y: Dr. Rick on 12-30-2022 Basophils/100 WBC (Bld) 1.1 % 0-1 [facility] Bilirubin [Mass/Vol] 0.60 mg/dL 0.20-1.00 [facility] Comment on above: For patients on eltr ombopag therapy, use of Dimension Myton TBIL is not recommended. Chloride [Moles/Vol] 106 mmol/L 98-107 [facility] Eosinophils/100 WBC (Bld) 0.6 % 0-5 [facility] Glucose [Mass/Vol] 170 mg/dL 74-106 [facility] Comment on above: Fasting Glucose resu lt greater than or equal to 126 mg/dL suggests DIABETES MELLITUS per A.D.A. criteria. Neutrophils (Bld) [#/Vol] 6.9 10*3/uL 2.0-7.7 [facility] Neutrophils/100 WBC (Bld) 76.9 % 47-70 [facility] Potassium [Moles/Vol] 4.1 mmol/L 3.5-5.1 [facility] Protein [Mass/Vol] 7.4 g/dL 6.4-8.2 [facility] Sodium [Moles/Vol] 138 mmol/L 136-145 [facility] WBC (Bld) [#/Vol] 9.0 10*3/uL 4.4-11.0 [facility] Blood erythrocytes count (nu mber/volume)Ordered By: Dr. Rick on 12-30-2022 RBC (Bld) [#/Vol] 4.75 10*6/uL 4.6-6.2 [facility] Blood hemoglobin measurement (mass/volume)Ordered By: Dr. Rick on 12-30-2022 Hemoglobin (Bld) [Mass/Vol] 14.8 g/dL 13.0-16.5 [facility] Blood lymphocytes/100 leukoc ytesOrdered By: Dr. Rick on 12-30-2022 Lymphocytes/100 WBC (Bld) 13.5 % 19-41 [facility] Blood monocytes/100 leukocyt esOrdered By: Dr. Rick on 12-30-2022 Monocytes/100 WBC (Bld) 7.2 % 0-10 [facility] Blood platelet mean volumeOr dered By: Dr. Rick on 12-30-2022 Platelet mean volume (Bld) [Entitic vol] 10.6 fL 6.2-12.0 [facility] Determination of erythrocyte mean corpuscular volume (MCV)Ordered By: Dr. Rick on 12-30-2022 MCV (RBC) [Entitic vol] 93.7 fL 80-94 [facility] Hematocrit Auto (Bld) [Volum e fraction]Ordered By: Dr. Rick on 12-30-2022 Hematocrit (Bld) [Volume fraction] 44.5 % 40-54 [facility] Laboratory - Chemistry and C hemistry - challengeOrdered By: Dr. Rick on 12-30-2022 ALP [Catalytic activity/Vol] 82 U/L 45-117 [facility] ALT [Catalytic activity/Vol] 49 U/L 16-61 [facility] CO2 [Moles/Vol] 25.0 mmol/L 21.0-32.0 [facility] Globulin (S) [Mass/Vol] 3.7 g/dL 2.2-4.2 [facility] Urea nitrogen/Creatinine [Mass ratio] 16.1 mg/mg 10-20 [facility] Laboratory - Hematology and Cell countsOrdered By: Dr. Rick on 12-30-2022 Erythrocyte distribution width (RBC) [Entitic vol] 45.3 fL 35.1-43.9 [facility] Erythrocyte distribution width (RBC) [Ratio] 13.1 % 11.6-14.6 [facility] Immature granulocytes/100 WBC (Bld) 0.700 % 0.0-0.9 [facility] Comment on above: IG% - Immature Granu locytes (promyelocytes, myelocytes and metamyelocytes) > 1% indicates that a LEFT SHIFT is Present. MCH (RBC) [Entitic mass] 31.2 pg 27.0-32.0 [facility] Nucleated RBC/100 WBC (Bld) [Ratio] 0 % 0-5 [facility] MCHC Auto (RBC) [Mass/Vol]Or dered By: Dr. Rick on 12-30-2022 MCHC (RBC) [Mass/Vol] 33.3 g/dL 32-36 [facility] No Panel InformationOrdered By: Dr. Rick on 12-30-2022 Estimated GFR (MDRD) Amer 107 mL/min >60 [facility] Comment on above: GFR Calc Estimated GFR (MDRD) Non-Af Amer 88 mL/min >60 [facility] Comment on above: Non- GFR Calc Platelets bldOrdered By: Dr. Rick on 12-30-2022 Platelets (Bld) [#/Vol] 257 10*3/uL 150-450 [facility] Serum or plasma albumin hunter urement (mass/volume)Ordered By: Dr. Rick on 12-30-2022 Albumin [Mass/Vol] 3.7 g/dL 3.2-5.0 [facility] Serum or plasma albumin/glob ulin mass ratioOrdered By: Dr. Rick on 12-30-2022 Albumin/Globulin [Mass ratio] 1.0 {ratio} 0.9-2.4 [facility] Serum or plasma calcium hunter urement (mass/volume)Ordered By: Dr. Rick on 12-30-2022 Calcium [Mass/Vol] 9.3 mg/dL 8.5-10.1 [facility] Serum or plasma creatinine m easurement (mass/volume)Ordered By: Dr. Rick on 12-30-2022 Creatinine [Mass/Vol] 0.87 mg/dL 0.70-1.30 [facility] Comment on above: The validity of the calculated GFR & GFRAA in patients over 70 years has not been determined. Clinical correlation is essential. Serum or plasma urea nitroge n measurement (mass/volume)Ordered By: Dr. Rick on 12-30-2022 Urea nitrogen [Mass/Vol] 14 mg/dL 7-18 [facility] Thin prep Papanicolaou smear with manual screeningOrdered By: Dr. Rick on 12-30-2022 Thin prep Papanicolaou smear with manual screening 23 U/L 15-37 [facility] Thin prep Papanicolaou smear with manual screening 7 5-15 [facility] Basophil percentageOrdered B y: Javier Mathews on 12-17-2022 Creatinine [Mass/Vol] 1.1 mg/dL 0.70-1.30 [facility] No Panel InformationOrdered By: Javier Mathews on 12-17-2022 Bedside Estimated GFR (eGFR) > 60.0000 mL/min >60 [facility] Glucose Glucometer (BldC) [M ass/Vol]on 03-25-2022 Glucose [Mass/Vol] 225 mg/dL 74-106 [facility] Work Phone: Comment on above: MANAGEMENT OF PATIEN T CARE PER NURSING PROTOCOL Absolute lymphocyte counton 03-23-2022 Lymphocytes Auto (Unsp spec) [#/Vol] 1.43 10*3/uL 0.83-4.51 [facility] Work Phone: Basophil percentageon 2021 Basophils/100 WBC (Bld) 0.6 % 0-1 [facility] Work Phone: Bilirubin [Mass/Vol] 0.50 mg/dL 0.20-1.00 [facility] Work Phone: Comment on above: For patients on eltr ombopag therapy, use of Dimension Myton TBIL is not recommended. Chloride [Moles/Vol] 107 mmol/L 98-107 [facility] Work Phone: Eosinophils/100 WBC (Bld) 3.1 % 0-5 [facility] Work Phone: Glucose [Mass/Vol] 187 mg/dL 74-106 [facility] Work Phone: Comment on above: Fasting Glucose resu lt greater than or equal to 126 mg/dL suggests DIABETES MELLITUS per A.D.A. criteria. Neutrophils (Bld) [#/Vol] 6.1 10*3/uL 2.0-7.7 [facility] Work Phone: Neutrophils/100 WBC (Bld) 70.0 % 47-70 [facility] Work Phone: Potassium [Moles/Vol] 4.1 mmol/L 3.5-5.1 [facility] Work Phone: Protein [Mass/Vol] 6.6 g/dL 6.4-8.2 [facility] Work Phone: Sodium [Moles/Vol] 137 mmol/L 136-145 [facility] Work Phone: WBC (Bld) [#/Vol] 8.6 10*3/uL 4.4-11.0 [facility] Work Phone: Blood erythrocytes count (nu mber/volume)on 03-23-2022 RBC (Bld) [#/Vol] 4.16 10*6/uL 4.6-6.2 [facility] Work Phone: Blood hemoglobin measurement (mass/volume)on 03-23-2022 Hemoglobin (Bld) [Mass/Vol] 12.5 g/dL 13.0-16.5 [facility] Work Phone: Blood lymphocytes/100 leukoc yteson 03-23-2022 Lymphocytes/100 WBC (Bld) 16.6 % 19-41 [facility] Work Phone: [phone] Blood monocytes/100 leukocyt eson 03-23-2022 Monocytes/100 WBC (Bld) 9.2 % 0-10 [facility] Work Phone: [phone] Blood platelet mean volumeon 03-23-2022 Platelet mean volume (Bld) [Entitic vol] 11.1 fL 6.2-12.0 [facility] Work Phone: [phone] Determination of erythrocyte mean corpuscular volume (MCV)on 03-23-2022 MCV (RBC) [Entitic vol] 89.7 fL 80-94 [facility] Work Phone: [phone] Hematocrit Auto (Bld) [Volum e fraction]on 03-23-2022 Hematocrit (Bld) [Volume fraction] 37.3 % 40-54 [facility] Work Phone: [phone] Laboratory - Chemistry and C hemistry - challengeon 03-23-2022 ALP [Catalytic activity/Vol] 57 U/L 45-117 [facility] Work Phone: [phone] ALT [Catalytic activity/Vol] 39 U/L 16-61 [facility] Work Phone: [phone] CO2 [Moles/Vol] 25.0 mmol/L 21.0-32.0 [facility] Work Phone: [phone] Globulin (S) [Mass/Vol] 3.7 g/dL 2.2-4.2 [facility] Work Phone: [phone] Urea nitrogen/Creatinine [Mass ratio] 18.1 mg/mg 10-20 [facility] Work Phone: [phone] Laboratory - Hematology and Cell countson 03-23-2022 Erythrocyte distribution width (RBC) [Entitic vol] 43.5 fL 35.1-43.9 [facility] Work Phone: [phone] Erythrocyte distribution width (RBC) [Ratio] 13.2 % 11.6-14.6 [facility] Work Phone: [phone] Immature granulocytes/100 WBC (Bld) 0.500 % 0.0-0.9 [facility] Work Phone: [phone] Comment on above: IG% - Immature Granu locytes (promyelocytes, myelocytes and metamyelocytes) > 1% indicates that a LEFT SHIFT is Present. MCH (RBC) [Entitic mass] 30.0 pg 27.0-32.0 [facility] Work Phone: [phone] Nucleated RBC/100 WBC (Bld) [Ratio] 0 % 0-5 [facility] Work Phone: [phone] MCHC Auto (RBC) [Mass/Vol]on 03-23-2022 MCHC (RBC) [Mass/Vol] 33.5 g/dL 32-36 [facility] Work Phone: [phone] Panel Informationon 03-23 Estimated Creatinine Clearance Calc 51.30 ml/min [facility] Work Phone: [phone] Estimated GFR (MDRD) Amer 122 mL/min >60 [facility] Work Phone: [phone] Comment on above: GFR Calc Estimated GFR (MDRD) Non-Af Amer 101 mL/min >60 [facility] Work Phone: [phone] Comment on above: Non- GFR Calc Platelets bldon 03-23-2022 Platelets (Bld) [#/Vol] 224 10*3/uL 150-450 [facility] Work Phone: [phone] Serum or plasma albumin hunter urement (mass/volume)on 03-23-2022 Albumin [Mass/Vol] 2.9 g/dL 3.2-5.0 [facility] Work Phone: [phone] Serum or plasma albumin/glob ulin mass ratioon 03-23-2022 Albumin/Globulin [Mass ratio] 0.8 {ratio} 0.9-2.4 [facility] Work Phone: Serum or plasma calcium hunter urement (mass/volume)on 03-23-2022 Calcium [Mass/Vol] 8.7 mg/dL 8.5-10.1 [facility] Work Phone: Serum or plasma creatinine m easurement (mass/volume)on 03-23-2022 Creatinine [Mass/Vol] 0.77 mg/dL 0.70-1.30 [facility] Work Phone: Comment on above: The validity of the calculated GFR & GFRAA in patients over 70 years has not been determined. Clinical correlation is essential. Serum or plasma urea nitroge n measurement (mass/volume)on 03-23-2022 Urea nitrogen [Mass/Vol] 14 mg/dL 7-18 [facility] Work Phone: Thin prep Papanicolaou smear with manual screeningon 03-23-2022 Thin prep Papanicolaou smear with manual screening 25 U/L 15-37 [facility] Work Phone: Thin prep Papanicolaou smear with manual screening 5 5-15 [facility] Work Phone: Laboratory - Chemistry and C hemistry - challengeon 03-22-2022 Lipase [Catalytic activity/Vol] 62 U/L 73-393 [facility] Work Phone: Blood manual differential co mment interpretation (narrative result)on 03-21-2022 Manual differential comment Nadeem (Bld) [Interp] SCANNED [facility] Work Phone: Review by pathologiston 03-11 Pathologist review Nadeem (Unsp spec) [Interp] Reviewed [facility] Work Phone: Comment on above: Previous reported re sult: Joi rubio Edited by: RGOOD on 03/23/22:1300Neutrophilic leukocytosis.Clinical correlation necessary.Kayden Reilly M.D. 03/23/22 AMENDED REPORT 03/23/22 1300 PATH REV previously reported as: Joi rubio Absolute lymphocyte counton 03-20-2022 Lymphocytes Auto (Unsp spec) [#/Vol] 1.35 10*3/uL 0.83-4.51 [facility] Work Phone: Basophil percentageon 2021 Basophil percentage 0 SEEN /hpf 0-5 [facility] Work Phone: Basophils/100 WBC (Bld) 0.2 % 0-1 [facility] Work Phone: Bilirubin [Mass/Vol] 1.10 mg/dL 0.20-1.00 [facility] Work Phone: Comment on above: For patients on eltr ombopag therapy, use of Dimension Myton TBIL is not recommended. Chloride [Moles/Vol] 103 mmol/L 98-107 [facility] Work Phone: Cholesterol [Mass/Vol] 97 mg/dL <200 [facility] Work Phone: Comment on above: <200 mg/dL Desirable 200-240 mg/dL Borderline >240 mg/dL High Risk Eosinophils/100 WBC (Bld) 0.4 % 0-5 [facility] Work Phone: Glucose [Mass/Vol] 260 mg/dL 74-106 [facility] Work Phone: Comment on above: Glucose result great er than or equal to 200 mg/dLsuggests DIABETES MELLITUS per A.D.A. criteria. Neutrophils (Bld) [#/Vol] 12.6 10*3/uL 2.0-7.7 [facility] Work Phone: Neutrophils/100 WBC (Bld) 78.2 % 47-70 [facility] Work Phone: Potassium [Moles/Vol] 4.0 mmol/L 3.5-5.1 [facility] Work Phone: Protein [Mass/Vol] 7.5 g/dL 6.4-8.2 [facility] Work Phone: Sodium [Moles/Vol] 134 mmol/L 136-145 [facility] Work Phone: Triglyceride [Mass/Vol] 62 mg/dL <199 [facility] Work Phone: Comment on above: The drugs N-Acetylcy steine and Metamizole may falsely depress this assay.Serum Triglycerides Reference Interval Normal <150 mg/dL Borderline high 150 - 199 mg/dL High 200 - 499 mg/dL Very High > or = 500 mg/dL WBC (Bld) [#/Vol] 16.1 10*3/uL 4.4-11.0 [facility] Work Phone: [phone] Bilirubin Test strip Ql (U)o n 03-20-2022 Bilirubin Ql (U) Negative Negative [facility] Work Phone: [phone] Blood erythrocytes count (nu mber/volume)on 03-20-2022 RBC (Bld) [#/Vol] 4.56 10*6/uL 4.6-6.2 [facility] Work Phone: [phone] Blood hemoglobin measurement (mass/volume)on 03-20-2022 Hemoglobin (Bld) [Mass/Vol] 13.6 g/dL 13.0-16.5 [facility] Work Phone: Blood lymphocytes/100 leukoc yteson 03-20-2022 Lymphocytes/100 WBC (Bld) 8.4 % 19-41 [facility] Work Phone: Blood manual differential co mment interpretation (narrative result)on 03-20-2022 Manual differential comment Nadeem (Bld) [Interp] SEE COMMENT [facility] Work Phone: Comment on above: MONOCYTOSIS NOTED Blood monocytes/100 leukocyt eson 03-20-2022 Monocytes/100 WBC (Bld) 12.3 % 0-10 [facility] Work Phone: [phone] Blood platelet adequacy dete ction by light microscopyon 03-20-2022 Platelets LM Ql (Bld) ADEQUATE ADEQ [facility] Work Phone: Blood platelet mean volumeon 03-20-2022 Platelet mean volume (Bld) [Entitic vol] 11.3 fL 6.2-12.0 [facility] Work Phone: Determination of erythrocyte mean corpuscular volume (MCV)on 03-20-2022 MCV (RBC) [Entitic vol] 88.4 fL 80-94 [facility] Work Phone: Direct bilirubinon Bilirubin.direct [Mass/Vol] 0.27 mg/dL 0.00-0.30 [facility] Work Phone: Hematocrit Auto (Bld) [Volum e fraction]on 03-20-2022 Hematocrit (Bld) [Volume fraction] 40.3 % 40-54 [facility] Work Phone: [phone] Ketones Test strip Ql (U)on 03-20-2022 Ketones Ql (U) Negative Negative [facility] Work Phone: [phone] Laboratory - Chemistry and C hemistry - challengeon 03-20-2022 ALP [Catalytic activity/Vol] 61 U/L 45-117 [facility] Work Phone: [phone] ALT [Catalytic activity/Vol] 31 U/L 16-61 [facility] Work Phone: [phone] CO2 [Moles/Vol] 24.0 mmol/L 21.0-32.0 [facility] Work Phone: [phone] Globulin (S) [Mass/Vol] 4.0 g/dL 2.2-4.2 [facility] Work Phone: Lipase [Catalytic activity/Vol] 1296 U/L 73-393 [facility] Work Phone: [phone] Urea nitrogen/Creatinine [Mass ratio] 13.1 mg/mg 10-20 [facility] Work Phone: [phone] Laboratory - Hematology and Cell countson 03-20-2022 Anisocytosis Ql (Bld) [facility]: [phone] Erythrocyte distribution width (RBC) [Entitic vol] 43.5 fL 35.1-43.9 [facility] Work Phone: [phone] Erythrocyte distribution width (RBC) [Ratio] 13.3 % 11.6-14.6 [facility] Work Phone: [phone] Immature granulocytes/100 WBC (Bld) 0.500 % 0.0-0.9 [facility] Work Phone: [phone] Comment on above: IG% - Immature Granu locytes (promyelocytes, myelocytes and metamyelocytes) > 1% indicates that a LEFT SHIFT is Present. MCH (RBC) [Entitic mass] 29.8 pg 27.0-32.0 [facility] Work Phone: [phone] Nucleated RBC/100 WBC (Bld) [Ratio] 0 % 0-5 [facility] Work Phone: [phone] MCHC Auto (RBC) [Mass/Vol]on 03-20-2022 MCHC (RBC) [Mass/Vol] 33.7 g/dL 32-36 [facility] Work Phone: [phone] Mucus LM Ql (Urine sed)on Mucus Ql (Urine sed) 0 SEEN /hpf [facility] Work Phone: [phone] Nitrite Test strip Ql (U)on 03-20-2022 Nitrite Ql (U) Negative Negative [facility] Work Phone: [phone] Panel Informationon 03-20 Estimated Creatinine Clearance Calc 55.76 ml/min [facility] Work Phone: [phone] Estimated GFR (MDRD) Amer 100 mL/min >60 [facility] Work Phone: [phone] Comment on above: GFR Calc Estimated GFR (MDRD) Non-Af Amer 83 mL/min >60 [facility] Work Phone: [phone] Comment on above: Non- GFR Calc Troponin I High Sensitivity < 3 pg/mL 3.0-78.0 [facility] Work Phone: [phone] Comment on above: Please Note: New Alyson t Units and Gender Specific Reference Ranges. For more information see Policy Stat Procedure Myton High Sensitivity Troponin (TNIH) and attachments. Platelets bldon 03-20-2022 Platelets (Bld) [#/Vol] 236 10*3/uL 150-450 [facility] Work Phone: [phone] Protein Test strip Ql (U)on 03-20-2022 Protein Ql (U) 30 mg/dl Negative [facility] Work Phone: [phone] RBC morphologyon 03-20-2022 RBC morphology finding Nom (Bld) N CHROM NORMAL NORM C&C [facility] Work Phone: Review by pathologiston 03-11 Pathologist review Nadeem (Unsp spec) [Interp] May foll [facility] Work Phone: [phone] Serum or plasma albumin hunter urement (mass/volume)on 03-20-2022 Albumin [Mass/Vol] 3.5 g/dL 3.2-5.0 [facility] Work Phone: [phone] Serum or plasma calcium hunter urement (mass/volume)on 03-20-2022 Calcium [Mass/Vol] 9.3 mg/dL 8.5-10.1 [facility] Work Phone: [phone] Serum or plasma cholesterol in HDL measurement (mass/volume)on 03-20-2022 Cholesterol in HDL [Mass/Vol] 54 mg/dL >40 [facility] Work Phone: Comment on above: The drugs N-Acetylcy steine and Metamizole may falsely depress this assay. Reference Range HDL <40 mg/dL Low HDL Cholesterol HDL >or= 60 mg/dL High HDL Cholesterol Serum or plasma cholesterol in VLDL measurement (mass/volume)on 03-20-2022 Cholesterol in VLDL [Mass/Vol] 12 mg/dL 5-40 [facility] Work Phone: [phone] Serum or plasma creatinine m easurement (mass/volume)on 03-20-2022 Creatinine [Mass/Vol] 0.92 mg/dL 0.70-1.30 [facility] Work Phone: Comment on above: The validity of the calculated GFR & GFRAA in patients over 70 years has not been determined. Clinical correlation is essential. Serum or plasma low density lipoprotein (LDL) cholesterol measurement (mass/volume)on 03-20-2022 Cholesterol in LDL [Mass/Vol] 31 mg/dL 0-130 [facility] Work Phone: Serum or plasma urea nitroge n measurement (mass/volume)on 03-20-2022 Urea nitrogen [Mass/Vol] 12 mg/dL 7-18 [facility] Work Phone: Squamous epithelial cells de tection in urine sediment by light microscopyon 03-20-2022 Epithelial cells.squamous LM Ql (Urine sed) 0 SEEN /hpf 0-5 [facility] Work Phone: Thin prep Papanicolaou smear with manual screeningon 03-20-2022 Thin prep Papanicolaou smear with manual screening 12 U/L 15-37 [facility] Work Phone: [phone] Thin prep Papanicolaou smear with manual screening 7 5-15 [facility] Work Phone: Urine blood detectionon 03-11 RBC Ql (U) 10 /ul Negative [facility] Work Phone: RBC Ql (U) 0 SEEN /hpf 0-5 [facility] Work Phone: Urine clarityon 03-20-2022 Clarity (U) Clear Clear [facility] Work Phone: Urine color determinationon 03-20-2022 Color (U) Yellow Yellow [facility] Work Phone: Urine glucose detectionon Glucose Ql (U) 1000 mg/dl Normal [facility] Work Phone: Urine leukocyte esterase det ection by dipstickon 03-20-2022 Leukocyte esterase Test strip Ql (U) Negative Negative [facility] Work Phone: Urine pHon 03-20-2022 pH (U) 6.0 [pH] 5.0 - 8.0 [facility] Work Phone: Urine sediment bacteria coun t by microscopy (number/high power field)on 03-20-2022 Bacteria LM.HPF (Urine sed) [#/Area] 0 /[HPF] None Seen [facility] Work Phone: Urine specific gravity measu rementon 03-20-2022 Specific gravity (U) [Rel density] 1.020 1.002-1.030 [facility] Work Phone: Urobilinogen Auto test strip Ql (U)on 03-20-2022 Urobilinogen Ql (U) Normal mg/dl Normal [facility] Work Phone: Vital Signs Date Time Vital Sign Value Performing Clinician Facility 03-23-2024 14:11-0400 Body mass index (BMI) [Ratio] 26.61 kg/m2 Digna Chakraborty ELECTRONIC LAB TECHNICIAN.[employer] Work Phone: [facility] 03-23-2024 14:11-0400 Body temperature 99 [degF] Digna Chakraborty ELECTRONIC LAB TECHNICIAN.[employer] Work Phone: [facility] 03-23-2024 14:11-0400 Body weight 79.38 kg Digna Chakraborty ELECTRONIC LAB TECHNICIAN.[employer] Work Phone: [facility] 03-23-2024 14:11-0400 Diastolic blood pressure 66 mm[Hg] Digna Chakraborty ELECTRONIC LAB TECHNICIAN.[employer] Work Phone: [facility] 03-23-2024 14:11-0400 Heart rate 97 /min Digna Chakraborty ELECTRONIC LAB TECHNICIAN.[employer] Work Phone: [facility] 03-23-2024 14:11-0400 Respiratory rate 16 /min Digna Chakraborty ELECTRONIC LAB TECHNICIAN.[employer] Work Phone: [facility] 03-23-2024 14:11-0400 SaO2% (BldA) [Mass fraction] 97 % Digna Chakraborty ELECTRONIC LAB TECHNICIAN.[employer] Work Phone: [facility] 03-23-2024 14:11-0400 Systolic blood pressure 122 mm[Hg] Digna Chakraborty ELECTRONIC LAB TECHNICIAN.[employer] Work Phone: [facility] 12-28-2023 14:53-0400 Body weight 79.38 kg Heidy Singleton ELECTRONIC LAB TECHNICIAN.[employer] Work Phone: [facility] 12-28-2023 14:53-0400 Diastolic blood pressure 82 mm[Hg] Heidy Singleton ELECTRONIC LAB TECHNICIAN.[employer] Work Phone: [facility] 12-28-2023 14:53-0400 Heart rate 95 /min Heidy Haagen ELECTRONIC LAB TECHNICIAN.[employer] Work Phone: [facility] 12-28-2023 14:53-0400 Respiratory rate 16 /min Heidy Haagen ELECTRONIC LAB TECHNICIAN.[employer] Work Phone: [facility] 12-28-2023 14:53-0400 SaO2% (BldA) [Mass fraction] 97 % Heidy Haagen ELECTRONIC LAB TECHNICIAN.[employer] Work Phone: [facility] 12-28-2023 14:53-0400 Systolic blood pressure 108 mm[Hg] Heidy Haagen ELECTRONIC LAB TECHNICIAN.[employer] Work Phone: [facility] 12-11-2023 11:05-0500 Body weight 81.19 kg Emilia Jacob MD Work Phone: [facility] 12-11-2023 11:05-0500 Diastolic blood pressure 78 mm[Hg] Emilia Jacob MD Work Phone: [facility] 12-11-2023 11:05-0500 Heart rate 96 /min Emilia Jacob MD Work Phone: [facility] 12-11-2023 11:05-0500 Respiratory rate 18 /min Emilia Jacob MD Work Phone: [facility] 12-11-2023 11:05-0500 SaO2% (BldA) [Mass fraction] 94 % Emilia aJcob MD Work Phone: [facility] 12-11-2023 11:05-0500 Systolic blood pressure 118 mm[Hg] Emilia Jacob MD Work Phone: [facility] 11-22-2023 15:41-0500 Body height 177.[address] Emilia Jacob Work Phone: [facility] 11-22-2023 15:41-0500 Body mass index (BMI) [Ratio] 24.8 kg/m2 Dr. Emilia Jacob Work Phone: [facility] 11-22-2023 15:41-0500 Body weight 78.[address] Emilia Jacob Work Phone: [facility] 11-22-2023 15:41-0500 Diastolic blood pressure 79 mm[Hg] Dr. Emilia Jacob Work Phone: [facility] 11-22-2023 15:41-0500 Heart rate 98 /min Dr. Emilia Jacob Work Phone: [facility] 11-22-2023 15:41-0500 Respiratory rate 18 /min Dr. Emilia Jacob Work Phone: [facility] 11-22-2023 15:41-0500 SaO2% (BldA) [Mass fraction] 94 % Dr. Emilia Jacob Work Phone: [facility] 11-22-2023 15:41-0500 Systolic blood pressure 138 mm[Hg] Dr. Emilia Jacob Work Phone: [facility] 11-19-2023 13:48-0500 Diastolic blood pressure 70 mm[Hg] Emilia Jacob MD Work Phone: [facility] 11-19-2023 13:48-0500 Heart rate 80 /min Emilia Jacob MD Work Phone: [facility] 11-19-2023 13:48-0500 Respiratory rate 18 /min Eimlia Jacob MD Work Phone: [facility] 11-19-2023 13:48-0500 Systolic blood pressure 118 mm[Hg] Emilia Jacob MD Work Phone: [facility] 11-16-2023 20:50-0500 Diastolic blood pressure 89 mm[Hg] Dr. Emilia Jacob Work Phone: [facility] 11-16-2023 20:50-0500 Systolic blood pressure 152 mm[Hg] Dr. Emilia Jacob Work Phone: [facility] 11-16-2023 16:32-0500 Body height 177.[address] Emilia Jacob Work Phone: 6(578)270-165066 [place] [address] 11-16-2023 16:32-0500 Body temperature 97.4 [degF] Dr. Emilia Jacob Work Phone: 4(884)547-951603 [place] [address] 11-16-2023 16:32-0500 Heart rate 87 /min Dr. Emilia Jacob Work Phone: 2(136)429-373903 [place] [address] 11-16-2023 16:32-0500 Respiratory rate 20 /min Dr. Emilia Jacob Work Phone: 3(214)356-699103 [place] [address] 11-16-2023 16:32-0500 SaO2% (BldA) [Mass fraction] 93 % Dr. Emilia Jacob Work Phone: 0(649)126-532003 [place] [address] 11-04-2023 13:56-0500 Body mass index (BMI) [Ratio] 27.3 kg/m2 Dr. Emilia Jacob Work Phone: 1(119)810-607603 [place] [address] 11-04-2023 13:56-0500 Body temperature 98.2 [degF] Dr. Emilia Jacob Work Phone: 0(125)567-120403 [place] [address] 11-04-2023 13:56-0500 Body weight 81.[address] Emilia Jacob Work Phone: 6(317)646-454903 [place] [address] 11-04-2023 13:56-0500 Diastolic blood pressure 76 mm[Hg] Dr. Emilia Jacob Work Phone: 4(816)693-168603 [place] [address] 11-04-2023 13:56-0500 Heart rate 96 /min Dr. Emilia Jacob Work Phone: 8(689)926-004603 [place] [address] 11-04-2023 13:56-0500 Respiratory rate 16 /min Dr. Emilia Jacob Work Phone: 4(661)434-673103 [place] [address] 11-04-2023 13:56-0500 SaO2% (BldA) [Mass fraction] 93 % Dr. Emilia Jacob Work Phone: 8(629)179-868503 [place] [address] 11-04-2023 13:56-0500 Systolic blood pressure 121 mm[Hg] Dr. Emilia Jacob Work Phone: 8(810)842-444703 [place] [address] 10-25-2023 14:05-0500 Body height 172.[address] Emilia Jacob Work Phone: 3(066)903-185066 [place] [address] 10-25-2023 14:05-0500 Body mass index (BMI) [Ratio] 27 kg/m2 Dr. Emilia Jacob Work Phone: 9(995)967-763666 [place] [address] 10-25-2023 14:05-0500 Body temperature 98.6 [degF] Dr. Emilia Jacob Work Phone: 3(999)789-546766 [place] [address] 10-25-2023 14:05-0500 Body weight 80.[address] Emilia Jacob Work Phone: 1(199)473-824166 [place] [address] 10-25-2023 14:05-0500 Diastolic blood pressure 82 mm[Hg] Dr. Emilia Jacob Work Phone: 5(432)846-698566 [place] [address] 10-25-2023 14:05-0500 Heart rate 93 /min Dr. Emilia Jacob Work Phone: 8(881)809-953066 [place] [address] 10-25-2023 14:05-0500 Respiratory rate 18 /min Dr. Emilia Jacob Work Phone: [facility] 10-25-2023 14:05-0500 SaO2% (BldA) [Mass fraction] 95 % Dr. Emilia Jacob Work Phone: [facility] 10-25-2023 14:05-0500 Systolic blood pressure 133 mm[Hg] Dr. Emilia Jacob Work Phone: [facility] 08-19-2023 11:25-0500 Body temperature 98.49 [degF] Katheryn Lora APRN.[employer] Work Phone: [facility] 08-19-2023 11:25-0500 Body weight 82.56 kg Katheryn Lora APRN.[employer] Work Phone: [facility] 08-19-2023 11:25-0500 Diastolic blood pressure 79 mm[Hg] Katheryn Lora APRN.[employer] Work Phone: [facility] 08-19-2023 11:25-0500 Heart rate 106 /min Katheryn Lora ELECTRONIC LAB TECHNICIAN.[employer] Work Phone: [facility] 08-19-2023 11:25-0500 Respiratory rate 18 /min Katheryn Lora ELECTRONIC LAB TECHNICIAN.[employer] Work Phone: [facility] 08-19-2023 11:25-0500 SaO2% (BldA) [Mass fraction] 94 % Katheryn Lora ELECTRONIC LAB TECHNICIAN.[employer] Work Phone: [facility] 08-19-2023 11:25-0500 Systolic blood pressure 121 mm[Hg] Katheryn Lora ELECTRONIC LAB TECHNICIAN.[employer] Work Phone: [facility] 08-02-2023 14:06-0400 Body height 172.[address] Emilia Jacob Work Phone: [facility] 08-02-2023 14:06-0400 Body mass index (BMI) [Ratio] 27.2 kg/m2 Dr. Emilia Jacob Work Phone: [facility] 08-02-2023 14:06-0400 Body temperature 97.4 [degF] Dr. Emilia Jacob Work Phone: [facility] 08-02-2023 14:06-0400 Body weight 81.[address] Emilia Jacob Work Phone: [facility] 08-02-2023 14:06-0400 Diastolic blood pressure 72 mm[Hg] Dr. Emilia Jacob Work Phone: [facility] 08-02-2023 14:06-0400 Heart rate 99 /min Dr. Emilia Jacob Work Phone: [facility] 08-02-2023 14:06-0400 Respiratory rate 18 /min Dr. Emilia Jacob Work Phone: [facility] 08-02-2023 14:06-0400 SaO2% (BldA) [Mass fraction] 91 % Dr. Emilia Jacob Work Phone: [facility] 08-02-2023 14:06-0400 Systolic blood pressure 109 mm[Hg] Dr. Emilia Jacob Work Phone: [facility] 07-19-2023 13:34-0400 Body mass index (BMI) [Ratio] 27.6 kg/m2 Dr. Emilia Jacob Work Phone: 1(760)971-235366 [place] [address] 07-19-2023 13:34-0400 Body temperature 97.3 [degF] Dr. Emilia Jacob Work Phone: 2(985)812-832103 [place] [address] 07-19-2023 13:34-0400 Body weight 82.[address] Emilia Jacob Work Phone: 0(392)555-228803 [place] [address] 07-19-2023 13:34-0400 Diastolic blood pressure 84 mm[Hg] Dr. Emilia Jacob Work Phone: 9(779)572-272903 [place] [address] 07-19-2023 13:34-0400 Heart rate 88 /min Dr. Emilia Jacob Work Phone: 8(988)532-887703 [place] [address] 07-19-2023 13:34-0400 Respiratory rate 16 /min Dr. Emilia Jacob Work Phone: 9(087)121-770466 [place] [address] 07-19-2023 13:34-0400 SaO2% (BldA) [Mass fraction] 94 % Dr. Emilia Jacob Work Phone: [facility] 07-19-2023 13:34-0400 Systolic blood pressure 145 mm[Hg] Dr. Emilia Jacob Work Phone: [facility] 06-29-2023 14:52-0400 Body weight 82.1 kg Emilia Jacob MD Work Phone: [facility] 06-29-2023 14:52-0400 Diastolic blood pressure 80 mm[Hg] Emilai Jacob MD Work Phone: [facility] 06-29-2023 14:52-0400 Heart rate 76 /min Emilia Jacob MD Work Phone: [facility] 06-29-2023 14:52-0400 Respiratory rate 16 /min Emilia Jacob MD Work Phone: [facility] 06-29-2023 14:52-0400 Systolic blood pressure 126 mm[Hg] Emilia Jacob MD Work Phone: [facility] 05-18-2023 08:13-0400 Body mass index (BMI) [Ratio] 27.3 kg/m2 Dr. Emilia Jacob Work Phone: [facility] 05-18-2023 08:13-0400 Body weight 81.[address] Emilia Jacob Work Phone: 0(536)131-592503 [place] [address] 05-18-2023 08:13-0400 Diastolic blood pressure 80 mm[Hg] Dr. Emilia Jacob Work Phone: 2(333)494-040703 [place] [address] 05-18-2023 08:13-0400 Heart rate 86 /min Dr. Emilia Jacob Work Phone: 4(247)636-848903 [place] [address] 05-18-2023 08:13-0400 Respiratory rate 18 /min Dr. Emilia Jacob Work Phone: 5(650)261-899403 [place] [address] 05-18-2023 08:13-0400 SaO2% (BldA) [Mass fraction] 94 % Dr. Emilia Jacob Work Phone: [facility] 05-18-2023 08:13-0400 Systolic blood pressure 125 mm[Hg] Dr. Emilia Jacob Work Phone: [facility] 04-26-2023 10:50-0400 Body mass index (BMI) [Ratio] 27 kg/m2 Dr. Emilia Jacob Work Phone: 4(891)088-851266 [place] [address] 04-26-2023 10:50-0400 Body temperature 98.3 [degF] Dr. Emilia Jacob Work Phone: 3(529)261-387866 [place] [address] 04-26-2023 10:50-0400 Body weight 80.[address] Emilia Jacob Work Phone: 8(008)946-807166 [place] [address] 04-26-2023 10:50-0400 Diastolic blood pressure 83 mm[Hg] Dr. Emilia Jacob Work Phone: [facility] 04-26-2023 10:50-0400 Heart rate 96 /min Dr. Emilia Jacob Work Phone: 7(523)833-308203 [place] [address] 04-26-2023 10:50-0400 Respiratory rate 16 /min Dr. Emilia Jacob Work Phone: 0(936)663-107003 [place] [address] 04-26-2023 10:50-0400 SaO2% (BldA) [Mass fraction] 92 % Dr. Emilia Jacob Work Phone: 8(717)451-788503 [place] [address] 04-26-2023 10:50-0400 Systolic blood pressure 128 mm[Hg] Dr. Emilia Jacob Work Phone: 2(001)947-660503 [place] [address] 01-07-2023 10:47-0400 Diastolic blood pressure 68 mm[Hg] Dr. Emilia Jacob Work Phone: 2(552)725-678603 [place] [address] 01-07-2023 10:47-0400 Heart rate 72 /min Dr. Emilia Jacob Work Phone: 9(907)673-172303 [place] [address] 01-07-2023 10:47-0400 Respiratory rate 16 /min Dr. Emilia Jacob Work Phone: 8(579)060-537103 [place] [address] 01-07-2023 10:47-0400 SaO2% (BldA) [Mass fraction] 95 % Dr. Emilia Jacob Work Phone: 6(187)443-853303 [place] [address] 01-07-2023 10:47-0400 Systolic blood pressure 127 mm[Hg] Dr. Emilia Jacob Work Phone: 1(129)607-974203 [place] [address] 01-07-2023 09:55-0400 Inhaled oxygen flow rate 2 L/min Dr. Emilia Jacob Work Phone: 8(296)835-393303 [place] [address] 01-07-2023 08:23-0400 Body height 172.[address] Emilia Jacob Work Phone: 4(587)539-892003 [place] [address] 01-07-2023 08:23-0400 Body mass index (BMI) [Ratio] 27.3 kg/m2 Dr. Emilia Jacob Work Phone: [facility] 01-07-2023 08:23-0400 Body temperature 97.4 [degF] Dr. Emilia Jacob Work Phone: 1(418)810-410666 [place] [address] 01-07-2023 08:23-0400 Body weight 81.[address] Emilia Jacob Work Phone: 3(436)920-240766 [place] [address] 12-30-2022 10:36-0400 Body mass index (BMI) [Ratio] 26.4 kg/m2 Dr. Emilia Jacob Work Phone: 9(102)048-262093 [address] 12-30-2022 10:36-0400 Body temperature 98.1 [degF] Dr. Emilia Jacob Work Phone: 7(446)172-902793 [address] 12-30-2022 10:36-0400 Body weight 78.[address] Emilia Jacob Work Phone: 7(448)483-622066 [place] [address] 12-30-2022 10:36-0400 Diastolic blood pressure 80 mm[Hg] Dr. Emilia Jacob Work Phone: [facility] 12-30-2022 10:36-0400 Heart rate 93 /min Dr. Emilia Jacob Work Phone: 5(277)885-760966 [place] [address] 12-30-2022 10:36-0400 Respiratory rate 16 /min Dr. Emilia Jacob Work Phone: 2(122)251-374666 [place] [address] 12-30-2022 10:36-0400 SaO2% (BldA) [Mass fraction] 94 % Dr. Emilia Jacob Work Phone: [facility] 12-30-2022 10:36-0400 Systolic blood pressure 130 mm[Hg] Dr. Emilia Jacob Work Phone: [facility] 12-10-2022 14:02-0500 Body weight 78.25 kg Emilia Jacob MD Work Phone: [facility] 12-10-2022 14:02-0500 Diastolic blood pressure 78 mm[Hg] Emilia Jacob MD Work Phone: [facility] 12-10-2022 14:02-0500 Heart rate 74 /min Emilia Jacob MD Work Phone: [facility] 12-10-2022 14:02-0500 Respiratory rate 16 /min Emilia Jacob MD Work Phone: [facility] 12-10-2022 14:02-0500 Systolic blood pressure 120 mm[Hg] Emilia Jacob MD Work Phone: [facility] 11-17-2022 13:20-0500 Body height 172.[address] Emilia Jacob Work Phone: [facility] 11-17-2022 13:20-0500 Body mass index (BMI) [Ratio] 26.6 kg/m2 Dr. Emilia Jacob Work Phone: [facility] 11-17-2022 13:20-0500 Body weight 79.[address] Emilia Jacob Work Phone: [facility] 11-17-2022 13:20-0500 Diastolic blood pressure 66 mm[Hg] Dr. Emilia Jacob Work Phone: [facility] 11-17-2022 13:20-0500 Heart rate 96 /min Dr. Emilia Jacob Work Phone: [facility] 11-17-2022 13:20-0500 Respiratory rate 18 /min Dr. Emilia Jacob Work Phone: [facility] 11-17-2022 13:20-0500 Systolic blood pressure 111 mm[Hg] Dr. Emilia Jacob Work Phone: [facility] 11-09-2022 15:29-0500 Body temperature 98.1 [degF] Emilia Jacob MD Work Phone: [facility] 11-09-2022 15:29-0500 Body weight 77.56 kg Emilia Jacob MD Work Phone: [facility] 11-09-2022 15:29-0500 Diastolic blood pressure 64 mm[Hg] Emilia Jacob MD Work Phone: [facility] 11-09-2022 15:29-0500 Heart rate 102 /min Emilia Jacob MD Work Phone: [facility] 11-09-2022 15:29-0500 Respiratory rate 18 /min Emilia Jacob MD Work Phone: [facility] 11-09-2022 15:29-0500 SaO2% (BldA) [Mass fraction] 94 % Emilia Jacob MD Work Phone: [facility] 11-09-2022 15:29-0500 Systolic blood pressure 118 mm[Hg] Emilia Jacob MD Work Phone: [facility] 06-02-2022 09:06-0400 Body weight 80.02 kg mEilia Jacob MD Work Phone: [facility] 06-02-2022 09:06-0400 Diastolic blood pressure 72 mm[Hg] Emilia Jacob MD Work Phone: [facility] 06-02-2022 09:06-0400 Heart rate 88 /min Emilia Jacob MD Work Phone: [facility] 06-02-2022 09:06-0400 Respiratory rate 16 /min Emilia Jacob MD Work Phone: [facility] 06-02-2022 09:06-0400 Systolic blood pressure 118 mm[Hg] Emilia Jacob MD Work Phone: [facility] 04-09-2022 14:57-0400 Body weight 77.11 kg Emilia Jacob MD Work Phone: [facility] 04-09-2022 14:57-0400 Diastolic blood pressure 64 mm[Hg] Emilia Jacob MD Work Phone: [facility] 04-09-2022 14:57-0400 Heart rate 78 /min Emilia Jacob MD Work Phone: [facility] 04-09-2022 14:57-0400 Respiratory rate 16 /min Emilia Jacob MD Work Phone: [facility] 04-09-2022 14:57-0400 Systolic blood pressure 108 mm[Hg] Emilia Jacob MD Work Phone: [facility] 04-03-2022 13:08-0400 Body height 172.7 cm Isabell Capone MD Work Phone: [facility] 04-03-2022 13:08-0400 Body temperature 98.2 [degF] Isabell Capone MD Work Phone: [facility] 04-03-2022 13:08-0400 Body weight 78.47 kg Isabell Capone MD Work Phone: [facility] 04-03-2022 13:08-0400 Diastolic blood pressure 58 mm[Hg] Isabell Capone MD Work Phone: [facility] 04-03-2022 13:08-0400 Heart rate 111 /min Isabell Capone MD Work Phone: [facility] 04-03-2022 13:08-0400 SaO2% (BldA) [Mass fraction] 94 % Isabell Capone MD Work Phone: [facility] 04-03-2022 13:08-0400 Systolic blood pressure 96 mm[Hg] Isabell Capone MD Work Phone: [facility] 03-25-2022 08:12-0400 Body temperature 99.4 [degF] Dr. Emilia Jacob Work Phone: [facility] Work Phone: 03-25-2022 08:12-0400 Diastolic blood pressure 85 mm[Hg] Dr. Emilia Jacob Work Phone: [facility] Work Phone: 03-25-2022 08:12-0400 Heart rate 104 /min Dr. Emilia Jacob Work Phone: [facility] Work Phone: 03-25-2022 08:12-0400 Respiratory rate 16 /min Dr. Emilia Jacob Work Phone: [facility] Work Phone: 03-25-2022 08:12-0400 SaO2% (BldA) [Mass fraction] 95 % Dr. Emilia Jacob Work Phone: [facility] Work Phone: 03-25-2022 08:12-0400 Systolic blood pressure 136 mm[Hg] Dr. Emilia Jacob Work Phone: [facility] Work Phone: 03-24-2022 09:56-0400 Body height 172.[address] Emilia Jacob Work Phone: [facility] Work Phone: 03-24-2022 09:56-0400 Body mass index (BMI) [Ratio] 26 kg/m2 Dr. Emilia Jacob Work Phone: [facility] Work Phone: 03-24-2022 09:56-0400 Body weight 77.[address] Emilia Jacob Work Phone: [facility] Work Phone: 03-21-2022 00:08-0400 Body temperature 98 [degF] [facility] Work Phone: 03-21-2022 00:08-0400 Diastolic blood pressure 82 mm[Hg] [facility] Work Phone: 03-21-2022 00:08-0400 Heart rate 90 /min [facility] Work Phone: 03-21-2022 00:08-0400 Respiratory rate 18 /min [facility] Work Phone: 03-21-2022 00:08-0400 SaO2% (BldA) [Mass fraction] 97 % [facility] Work Phone: 03-21-2022 00:08-0400 Systolic blood pressure 136 mm[Hg] [facility] Work Phone: 03-20-2022 19:28-0400 Body height 172.72 cm [facility] Work Phone: 03-20-2022 19:28-0400 Body mass index (BMI) [Ratio] 25 kg/m2 [facility] Work Phone: 03-20-2022 19:28-0400 Body weight 74.84 kg [facility] Work Phone: 02-26-2022 09:08-0400 Body weight 79.24 kg Emilia Jacob MD Work Phone: [facility] 02-26-2022 09:08-0400 Diastolic blood pressure 72 mm[Hg] Emilia Jacob MD Work Phone: [facility] 02-26-2022 09:08-0400 Heart rate 84 /min Emilia Jacob MD Work Phone: [facility] 02-26-2022 09:08-0400 Respiratory rate 16 /min Emilia Jacob MD Work Phone: [facility] 02-26-2022 09:08-0400 SaO2% (BldA) [Mass fraction] 95 % Emilia Jacob MD Work Phone: [facility] 02-26-2022 09:08-0400 Systolic blood pressure 124 mm[Hg] Emilia Jacob MD Work Phone: [facility] 01-23-2022 11:07-0400 Body temperature 98.01 [degF] Emilia Jacob MD Work Phone: [facility] 01-23-2022 11:07-0400 Body weight 77.11 kg Emilia Jacob MD Work Phone: [facility] 01-23-2022 11:07-0400 Diastolic blood pressure 66 mm[Hg] Emilia Jacob MD Work Phone: [facility] 01-23-2022 11:07-0400 Heart rate 74 /min Emilia Jacob MD Work Phone: [facility] 01-23-2022 11:07-0400 Respiratory rate 14 /min Emilia Jacob MD Work Phone: [facility] 01-23-2022 11:07-0400 Systolic blood pressure 128 mm[Hg] Emilia Jacob MD Work Phone: [facility] Encounters Encounter Date Encounter Type Care Provider Facility Start: 06-12-2025 End: 06-12-2025 ambulatory Sandoval Chi Selvin Facility:[facility] Start: 05-14-2025 End: 05-14-2025 ambulatory Sandoval Chi Selvin Facility:[facility] Start: 05-11-2025 End: 05-11-2025 ambulatory Sandoval Chi Selvin Facility:[facility] Start: 04-10-2025 End: 04-10-2025 ambulatory Sandoval Chi Selvin Facility:[facility] Start: 04-06-2025 End: 04-06-2025 ambulatory Sandoval Chi Selvin Facility:[facility] Start: 04-05-2025 End: 04-05-2025 ambulatory Sandoval Chi Selvin Facility:[facility] Start: 04-03-2025 End: 04-03-2025 ambulatory Sandoval Chi Selvin Facility:[facility] Start: 03-29-2025 End: 03-29-2025 ambulatory Sandoval Chi Selvin Facility:[facility] Start: 03-29-2025 Encounter for genera l adult medical examination without abnormal findings [facility] Start: 03-22-2025 End: 03-23-2025 [facility]ulatory [facility] Facility[facility] Start: 03-22-2025 End: 03-22-2025 ambulatory [facility] Facility:[facility] Start: 03-21-2025 ambulatory Sandoval Chi Selvin Facility:[facility] Start: 03-12-2025 End: 03-12-2025 ambulatory Sandoval Chi Selvin Facility:[facility] Start: 03-06-2025 End: 03-06-2025 ambulatory Sandoval Chi Selvin Facility:[facility] Start: 02-19-2025 End: 02-20-2025 ambulatory Sandoval Chi Selvin Facility:[facility] Start: 02-19-2025 End: 02-19-2025 ambulatory [facility] Facility:[facility] Start: 02-13-2025 End: 03-10-2025 ambulatory Sandoval Chi Selvin Facility:[facility] Start: 02-12-2025 End: 02-12-2025 ambulatory Sandoval Chi Selvin Facility:[facility] Start: 02-08-2025 End: 02-08-2025 ambulatory Sandoval Chi Selvin Facility:[facility] Start: 01-08-2025 End: 01-08-2025 ambulatory Vincent L Seese Facility:[facility] Start: 01-03-2025 End: 01-03-2025 ambulatory Andres Shipley Facility:[facility] Start: 12-29-2024 End: 12-29-2024 ambulatory Caitlin KAN Facility:[facility] Start: 12-05-2024 End: 12-05-2024 ambulatory Sandoval Chi Selvin Facility:[facility] Start: 11-20-2024 End: 11-20-2024 ambulatory Sandoval Chi Selvin Facility:[facility] Start: 11-08-2024 End: 11-08-2024 ambulatory Vincent L Seese Facility:[facility] Start: 09-27-2024 End: 09-27-2024 ambulatory Sandoval Chi Selvin Facility:[facility] Start: 09-18-2024 End: 10-10-2024 ambulatory Sandoval Chi Selvin Facility:[facility] Start: 08-14-2024 End: 08-14-2024 ambulatory Sandoval Chi Selvin Facility:[facility] Start: 08-01-2024 End: 08-10-2024 ambulatory Sandoval Chi Selvin Facility:[facility] Start: 07-06-2024 End: 07-06-2024 ambulatory Sandoval Chi Selvin Facility:[facility] Start: 07-04-2024 End: 07-04-2024 ambulatory Sandoval Chi Selvin Facility:[facility] Start: 06-23-2024 End: 06-23-2024 ambulatory Sandoval Chi Selvin Facility:[facility] Start: 06-06-2024 End: 06-06-2024 [facility] [place] Start: 06-06-2024 End: 06-06-2024 Patient encounter procedure [facility] [place] Comment on above: Population Health Na vigation Outreach (Becky Mcc[facility] [place] ) Start: 05-18-2024 Telephone encounter Emilia briones MD Work Phone: [facility] Comment on above: Release Of Medical R ecords ([facility]) Start: 04-27-2024 Telephone encounter Emilia briones MD Work Phone: [facility] Comment on above: Medication Problem Start: 03-27-2024 Telephone encounter Digna aguirre ELECTRONIC LAB TECHNICIAN.[employer]ARDENER [employer]IST Work Phone: [facility] Comment on above: Results (Labs/Urine ) Start: 03-24-2024 End: 03-24-2024 ambulatory [facility] Facility:[facility] Start: 03-23-2024 End: 03-23-2024 [facility] Facility:[facility] Start: 03-23-2024 End: 03-23-2024 Patient encounter procedure Digna Chakraborty APRN.[employer]ARDENER [employer]IST Work Phone: [facility] Comment on above: Illness (Primary Dx) ; Night sweats; Nausea; Chondrosarcoma (HCC) Start: 03-12-2024 Refill Raman CLOUD RN.GARDENER [employer]ORIST Work Phone: [facility] Comment on above: Refill Request Start: 02-23-2024 Refill Emilia aguirre MD Work Phone: [facility] Comment on above: Refill Request Start: 02-14-2024 Refill Emilia aguirre MD Work Phone: [facility] Comment on above: Refill Request Start: 12-28-2023 End: 12-28-2023 Office outpatient visit 25 minutes Heidy Singleton APRN.[employer]ENER [employer]IST Work Phone: [facility] Comment on above: Type 2 diabetes delia itus without complication, without long- term current use of insulin (HCC) (Primary Dx); Chondrosarcoma (HCC); Pure hypercholesterolemia; 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); Atrial fibrillation, unspecified type (HCC); Essential hypertension, benign; Hyperlipidemia, unspecified hyperlipidemia type Start: 12-28-2023 End: 12-28-2023 ambulatory [facility] Facility:[facility] Start: 12-24-2023 End: 12-24-2023 ambulatory EMILIA JACOB Facility:[facility] Start: 12-17-2023 Refill Emilia aguirre MD Work Phone: [facility] Comment on above: Refill Request Start: 12-11-2023 End: 12-11-2023 ambulatory EMILIA JACOB Facility:[facility] Start: 12-11-2023 End: 12-11-2023 Patient encounter procedure Emilia Jacob MD Work Phone: [facility] Comment on above: Cough, unspecified t ype (Primary Dx); Essential hypertension, benign; Atrial fibrillation, unspecified type (HCC); Type 2 diabetes mellitus without complication, without long-term current use of insulin (HCC); Chondrosarcoma (HCC); 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 Emilia Jacob Work Phone: [facility] Work Phone: Start: 11-22-2023 End: 11-22-[address] 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 Emilia Jacob Work Phone: [facility] Work Phone: Start: 11-04-2023 End: 11-04-[address] Emilia Jacob Work Phone: [facility] Work Phone: Start: 11-01-2023 End: 11-01-[address] Emilia Jacob Work Phone: [facility] Work Phone: Start: 11-01-2023 End: 11-01-[address] Emilia Jacob Work Phone: [facility] Work Phone: Start: 10-25-2023 End: 10-25-[address] Emilia Jacob Work Phone: [facility] Work Phone: Start: 09-16-2023 Refill Emilia aguirre MD Work Phone: [facility] Comment on above: Refill Request Start: 08-30-2023 Refill Emilia aguirre MD Work Phone: [facility] Comment on above: Refill Request Start: 08-20-2023 Telephone encounter Katheryn Lora APRN.GARDENER [employer]IST Work Phone: [facility] Comment on above: Results Start: 08-19-2023 End: 08-19-2023 ambulatory EMILIA JACOB Facility:[facility] Start: 08-19-2023 End: 08-19-2023 Patient encounter procedure Katheryn Lora APRN.GARDENER [employer]IST Work Phone: [facility] Comment on above: URI with cough and c ongestion (Primary Dx) Start: 08-02-2023 End: 08-02-[address] Emilia Jacob Work Phone: [facility] Work Phone: Start: 07-28-2023 End: 07-28-[address] Emilai Jacob Work Phone: [facility] Work Phone: Start: 07-28-2023 End: 07-28-[address] Emilia Jacob Work Phone: [facility] Work Phone: Start: 07-19-2023 End: 07-19-[address] Emilia Jacob Work Phone: [facility] Work Phone: Start: 06-29-2023 End: 06-29-2023 ambulatory EMILIA JACOB Facility:[facility] Start: 06-29-2023 End: 06-29-2023 Patient encounter procedure Emilia Jacob MD Work Phone: [facility] Comment on above: Type 2 diabetes delia itus without complication, without long- term current use of insulin (HCC) (Primary Dx); Pure hypercholesterolemia; Essential hypertension, benign; History of CVA (cerebrovascular accident) Start: 06-25-2023 End: 06-25-2023 ambulatory EMILIA JACOB Facility:[facility] Start: 06-07-2023 Refill Emilia aguirre MD Work Phone: [facility] Comment on above: Refill Request Start: 05-18-2023 End: 05-18-[address] Emilia Jacob Work Phone: [facility] Work Phone: Start: 04-26-2023 End: 04-26-[address] Emilia Jacob Work Phone: [facility] Work Phone: Start: 03-24-2023 Telephone encounter Emilia briones MD Work Phone: [facility] Comment on above: Medication Problem Start: 02-03-2023 Telephone encounter Emilia briones MD Work Phone: [facility] Comment on above: Patient Update Refill Request Start: 01-07-2023 End: 01-07-[address] Emilia Jacob Work Phone: [facility] Work Phone: Start: 01-07-2023 End: 01-07-[address] Emilia Jacob Work Phone: [facility] Start: 12-30-[address] Emilia Jacob Work Phone: [facility] Start: 12-30-2022 End: 12-30-[address] Emilia Jacob Work Phone: [facility] Start: 12-28-2022 Refill Emilia aguirre MD Work Phone: [facility] Comment on above: Refill Request Start: 12-17-2022 End: 12-17-[address] Emilia Jacob Work Phone: [facility] Work Phone: Start: 12-17-2022 End: 12-17-[address] 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 Emilia Jacob Work Phone: [facility] Start: 11-27-2022 Non-patient / Non-visit Dr. Kelly Jacob Work Phone: [place] [facility] Start: 11-25-2022 Non-patient / Non-visit Dr. Kelly Jacob Work Phone: [facility] Start: 11-25-2022 End: 11-25-[address] Emilia [facility] Phone[facility] Start: 11-17-2022 End: 11-17-[address] Emilia Jacob Work Phone: [facility] Work Phone: Start: 11-17-2022 End: 11-17-[address] Emilia Jacob Work Phone: [facility] Start: 11-09-2022 End: 11-09-2022 Patient encounter procedure Emilia Jacob MD Work Phone: [facility] Comment on above: Cough, unspecified t ype (Primary Dx); Chest congestion; Sinus congestion Start: 11-08-2022 Refill Raman CLOUD RN.GARDENER FLORIST Work Phone: [facility] Comment on above: Refill Request Start: 06-02-2022 End: 06-02-2022 Patient encounter procedure Emilia Jacob MD Work Phone: [facility] Comment on above: Type 2 diabetes [...] Telephone encounter Emilia briones MD Work Phone: [facility] Comment on above: Results Start: 04-27-2022 Telephone encounter Emilia briones MD Work Phone: [facility] Comment on above: Patient Update; Appo intment Start: 04-09-2022 End: 04-09-2022 Patient encounter procedure Emilia Jacob MD Work Phone: [facility] Comment on above: Essential hypertensi on, [...] / Non-visit Dr. Kelly Jacob Work Phone: [facility] Start: 03-23-2022 Non-patient / Non-visit Dr. Kelly Jacob Work Phone: [facility] Start: 03-22-2022 Non-patient / Non-visit Dr. Kelly Jacob Work Phone: [facility] Start: 03-21-2022 End: 03-25-2022 Evaluation and management of inpatient Dr. Emilia Jacob Work Phone: [facility] Start: 03-21-2022 Non-patient / Non-visit Dr. 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); Need for COVID-19 vaccine Start: 01-23-2022 ambulatory Emilia aguirre MD Work Phone: [facility] Comment on above: Nausea Start: 01-23-2022 End: 01-23-2022 Patient encounter procedure Emilia Jacob MD Work Phone: [facility] Comment on above: Nausea (Primary Dx); Essential hypertension, benign; Type 2 diabetes mellitus without complication, without long-term current use of insulin (HCC); History of CVA (cerebrovascular accident); Depression, unspecified depression type Start: 01-15-2022 Refill Emilia aguirre MD Work Phone: [facility] Comment on above: Refill Request Start: 12-02-2021 Refill Eimlia aguirre MD Work Phone: [facility] Comment on above: Refill Request Start: 02-11-2021 ambulatory STEFFINIYAH AMADOR Fac ility:[facility] Start: 01-07-2021 ambulatory EMILIA JACOB Facil ity:[facility] Procedures Date Procedure Procedure Detail Performing Clinician Start: 11-16-2023 X-ray of chest posteroanterior view Dr. Emilia Jacob Work Phone: Start: 11-01-2023 CT of thorax with contrast Dr. Emilia Jacob Work Phone: Start: 07-28-2023 CT of [...] Detail Author Start: 01-15-2031 Urine microalbumin profile [facility] Start: 12-23-2024 Hepatitis B surface antibody level LDL Cholesterol [facility] Start: 06-29-2024 End: 06-29-2024 Patient encounter procedure 06/29/2024 2:00 PM EDT Office Visit Family Tamika Corley [address] [place], [place] [address] Digna Chakraborty, ELECTRONIC LAB TECHNICIAN.GARDENER FLORIST [address] [place] [address] 6 month follow up Family Tamika Corley Comment on above: 6 month follow up Start: 06-25-2024 Hemoglobin A1c measurement HbA1C [facility] Start: 06-25-2024 Hepatitis B screening Urine Albumin:Creatinine Ratio [facility] Start: 06-25-2024 Hepatitis B surface antibody level LDL Cholesterol [facility] Start: 06-11-2024 [facility] Start: 03-23-2024 End: 06-22-2024 Bacteria identified in Urine by Culture URINE CULTURE Microbiology Routine Illness Night sweats Expected: 03/23/2024, Expires: 06/22/2024 [facility] Comment on above: Expected: 03/23/2024, Expires: Start: 03-23-2024 End: 06-22-2024 CBC W Auto Differential panel - Blood COMPLETE BLOOD COUNT AND DIFFERENTIAL Lab Routine Illness Night sweats Expected: 03/23/2024, Expires: 06/22/2024 [facility] Work Phone: Comment on above: Expected: 03/23/2024, Expires: Start: 03-23-2024 End: 06-22-2024 Comprehensive metabolic 2000 panel - Serum or Plasma COMPREHENSIVE METABOLIC PANEL Lab Routine Illness Night sweats Expected: 03/23/2024, Expires: 06/22/2024 [facility] Comment on above: Expected: 03/23/2024, Expires: 4 Start: 03-23-2024 End: 06-22-2024 Urinalysis complete panel - Urine URINALYSIS, WITH MICROSCOPIC Lab Routine Illness Night sweats Expected: 03/23/2024, Expires: 06/22/2024 [facility] Comment on above: Expected: 03/23/2024, Expires: Start: 12-28-2023 End: 02-27-2024 CBC panel - Blood by Automated count CBC Lab Routine Essential hypertension, benign Expected: 12/28/2023 (Approximate), Expires: 02/27/2024 [facility] Work Phone: Comment on above: Expected: 12/28/2023 (Approximate), Expi res: 02/27/2024 Start: 12-28-2023 End: 02-27-2024 Comprehensive metabolic 2000 panel - Serum or Plasma COMP METABOLIC PANEL Lab Routine Pure hypercholesterolemia Type 2 diabetes mellitus without complication, without long-term current use of insulin (HCC) Essential hypertension, benign Expected: 12/28/2023 (Approximate), Expires: 02/27/2024 [facility] Work Phone: Comment on above: Expected: 12/28/2023 (Approximate), Expi res: 02/27/2024 Start: 12-28-2023 End: 02-27-2024 Hemoglobin A1c in Blood HGB A1C Lab Routine Type 2 diabetes mellitus without complication, without long-term current use of insulin (HCC) Expected: 12/28/2023 (Approximate), Expires: 02/27/2024 [facility] Work Phone: Comment on above: Expected: 12/28/2023 (Approximate), Expi res: 02/27/2024 Start: 12-28-2023 End: 02-27-2024 Lipid 1996 panel - Serum or Plasma LIPID PANEL BASIC Lab Routine Pure hypercholesterolemia Type 2 diabetes mellitus without complication, without long-term current use of insulin (HCC) Essential hypertension, benign Expected: 12/28/2023 (Approximate), Expires: 02/27/2024 [facility] Work Phone: Comment on above: Expected: 12/28/2023 (Approximate), Expi res: 02/27/2024 Start: 12-24-2023 Hemoglobin A1c measurement HbA1C [facility] Start: 12-24-2023 Hemoglobin A1c/Hemoglobin.total in Blood HbA1C [facility] Start: 12-04-2023 Hepatitis B surface antibody level LDL CHOLESTEROL [facility] Start: 11-19-2023 Covid-19 Vaccine () Covid-19 Vaccine () [facility] Start: 11-16-2023 [facility] Start: 10-11-2023 Advance Directive Discussion Advance Directive Discussion [facility] Start: 08-19-2023 End: 09-02-2023 COVID & INFLUENZA A/B & RSV NAAT, ROUTINE [facility] Work Phone: Comment on above: Expected: 08/19/2023, Expires: Start: 08-14-2023 Hepatitis B surface antibody level LDL CHOLESTEROL [facility] Start: 07-06-2023 Glaucoma screening Dilated Retinal Exam [facility] Start: 07-06-2023 Hepatitis C antibody, confirmatory test DILATED RETINAL EXAM [facility] Start: 06-12-2023 End: 08-12-2023 ALBUMIN/CREAT RATIO RND UR ALBUMIN/CREAT RATIO RND UR Lab Routine Type 2 diabetes mellitus without complication, without long-term current use of insulin (HCC) Expected: 06/12/2023 (Approximate), Expires: 08/12/2023 [facility] Work Phone: Comment on above: Expected: 06/12/2023 (Approximate), Expi res: 08/12/2023 Start: 06-12-2023 End: 08-12-2023 Comprehensive metabolic 2000 panel - Serum or Plasma COMP METABOLIC PANEL Lab Routine Type 2 diabetes mellitus without complication, without long-term current use of insulin (HCC) Pure hypercholesterolemia History of CVA (cerebrovascular accident) Expected: 06/12/2023 (Approximate), Expires: 08/12/2023 [facility] Work Phone: Comment on above: Expected: 06/12/2023 (Approximate), Expi res: 08/12/2023 Start: 06-12-2023 End: 08-12-2023 Hemoglobin A1c in Blood HGB A1C Lab Routine Type 2 diabetes mellitus without complication, without long-term current use of insulin (HCC) Expected: 06/12/2023 (Approximate), Expires: 08/12/2023 [facility] Work Phone: Comment on above: Expected: 06/12/2023 (Approximate), Expi res: 08/12/2023 Start: 06-12-2023 End: 08-12-2023 Lipid 1996 panel - Serum or Plasma LIPID PANEL BASIC Lab Routine Pure hypercholesterolemia History of CVA (cerebrovascular accident) Expected: 06/12/2023 (Approximate), Expires: 08/12/2023 [facility] Work Phone: Comment on above: Expected: 06/12/2023 (Approximate), Expi res: 08/12/2023 Start: 06-11-2023 Influenza vaccination [facility] Start: 06-03-2023 Hemoglobin A1c/Hemoglobin.total in Blood HBA1C [facility] Start: 04-26-2023 Patient referral [facility] Work Phone: Start: 02-20-2023 Hepatitis B screening URINE ALBUMIN:CREATININE RATIO [facility] Start: 02-20-2023 Hepatitis B surface antibody level LDL CHOLESTEROL [facility] Start: 02-11-2023 Hemoglobin A1c/Hemoglobin.total in Blood HBA1C [facility] Start: 01-07-2023 Following clinical pathway protocol [facility] Start: 01-07-2023 Catheterization of vein [facility] Start: 01-07-2023 Oxygen therapy [facility] Start: 01-07-2023 Patient discharge [facility] Start: 01-07-2023 Vital signs measurements [facility] Start: 12-16-2022 COVID-19 VACCINE (6 - Moderna series) COVID-19 VACCINE (6 - Moderna series) [facility] Start: 10-11-2022 ADVANCE DIRECTIVE DISCUSSION ADVANCE DIRECTIVE DISCUSSION [facility] Start: 08-07-2022 Hepatitis B surface antibody level LDL CHOLESTEROL [facility] Start: 08-02-2022 End: 10-02-2022 Comprehensive metabolic 2000 panel - Serum or Plasma COMP METABOLIC PANEL Lab Routine Type 2 diabetes mellitus without complication, without long-term current use of insulin (HCC) Essential hypertension, benign Hyperlipidemia, unspecified hyperlipidemia type Expected: 08/02/2022 (Approximate), Expires: 10/02/2022 [facility] Work Phone: Comment on above: Expected: 08/02/2022 (Approximate), Expi res: 10/02/2022 Start: 08-02-2022 End: 10-02-2022 Hemoglobin A1c in Blood HGB A1C Lab Routine Type 2 diabetes mellitus without complication, without long-term current use of insulin (HCC) Expected: 08/02/2022 (Approximate), Expires: 10/02/2022 [facility] Work Phone: Comment on above: Expected: 08/02/2022 (Approximate), Expi res: 10/02/2022 Start: 08-02-2022 End: 10-02-2022 Lipid 1996 panel - Serum or Plasma LIPID PANEL BASIC Lab Routine Essential hypertension, benign Hyperlipidemia, unspecified hyperlipidemia type Expected: 08/02/2022 (Approximate), Expires: 10/02/2022 [facility] Work Phone: Comment on above: Expected: 08/02/2022 (Approximate), Expi res: 10/02/2022 Start: 07-28-2022 Hemoglobin A1c/Hemoglobin.total in Blood HBA1C [facility] Start: 06-11-2022 Influenza vaccination INFLUENZA (#1) [facility] Start: 05-29-2022 End: 07-29-2022 Comprehensive metabolic 2000 panel - Serum or Plasma COMP METABOLIC PANEL Lab Routine Pure hypercholesterolemia Type 2 diabetes mellitus without complication, without long-term current use of insulin (HCC) Expected: 05/29/2022 (Approximate), Expires: 07/29/2022 [facility] Work Phone: Comment on above: Expected: 05/29/2022 (Approximate), Expi res: 07/29/2022 Start: 05-29-2022 End: 07-29-2022 Hemoglobin A1c/Hemoglobin.total in Blood HGB A1C Lab Routine Type 2 diabetes mellitus without complication, without long-term current use of insulin (HCC) Expected: 05/29/2022 (Approximate), Expires: 07/29/2022 [facility] Work Phone: Comment on above: Expected: 05/29/2022 (Approximate), Expi res: 07/29/2022 Start: 05-29-2022 End: 07-29-2022 LIPID PANEL BASIC LIPID PANEL BASIC Lab Routine Pure hypercholesterolemia Expected: 05/29/2022 (Approximate), Expires: 07/29/2022 [facility] Work Phone: Comment on above: Expected: 05/29/2022 (Approximate), Expi res: 07/29/2022 Start: 05-23-2022 Hemoglobin A1c/Hemoglobin.total in Blood HBA1C [facility] Start: 03-25-2022 Patient discharge [facility] Work Phone: Start: 03-23-2022 Care planning and problem solving actions [facility] Work Phone: Start: 03-22-2022 Care planning and problem solving actions [facility] Work Phone: Start: 03-21-2022 Admission procedure [facility] Work Phone: Start: 03-21-2022 Application of intermittent pneumatic compression device [facility] Work Phone: Start: 03-21-2022 Following clinical pathway protocol [facility] Work Phone: Start: 03-21-2022 Assessment of risk of venous thromboembolism [facility] Work Phone: Start: 03-21-2022 Care regimes management [facility] Work Phone: Start: 03-21-2022 Insertion of catheter into peripheral vein [facility] Work Phone: Start: 03-21-2022 Notification of physician [facility] Work Phone: Start: 03-21-2022 Providing care according to standard [facility] Work Phone: Start: 03-21-2022 Provision of activity privileges [facility] Work Phone: Start: 03-21-2022 Referral to general surgeon [facility] Work Phone: Start: 03-21-2022 [facility] Work Phone: Start: 03-21-2022 Verification routine [facility] Work Phone: Start: 03-21-2022 Admission procedure [facility] Work Phone: Start: 02-11-2022 Hemoglobin A1c/Hemoglobin.total in Blood HBA1C [facility] Start: 10-11-2021 ADVANCE DIRECTIVE DISCUSSION ADVANCE DIRECTIVE DISCUSSION [facility] Start: 05-08-2020 Hepatitis B screening URINE ALBUMIN:CREATININE RATIO [facility] Start: 1995 Hepatitis B Vaccine (1 of 3 - Risk 3-dose series) Hepatitis B Vaccine (1 of 3 - Risk 3-dose series) [facility] Start: 1995 RSV Vaccine (1 - 1-dose 60+ series) RSV Vaccine (1 - 1-dose 60+ series) [facility] Start: 1953 Anxiety Screening Anxiety Screening [facility] Start: 1945 3 comp foot exam completed DIABETIC FOOT EXAM [facility] Start: 1945 Diabetic foot examination Diabetic Foot Exam [facility] Start: 1945 Hepatitis C antibody, confirmatory test DILATED RETINAL EXAM [facility] CT Chest W contrast IV [facility] CT Chest W contrast IV [facility] Patient Education [facility] Work Phone: Patient referral [facility] Work Phone: ROUTINE FLU A/B + RSV ROUTINE FL U A/B + RSV Lab Routine URI with cough and congestion 08/19/2023 12:27 PM [facility] Work Phone: SARS-CoV-2 (COVID-19 ) RNA [Presence] in Respiratory specimen by VEL with probe detection COVID NAAT, UPPER RESPIRATORY, ROUTINE Microbiology Routine URI with cough and congestion 08/19/2023 12:27 PM [facility] Work Phone: UA DIP, URINE (POC) UA DIP, URIN E (POC) Lab Routine Illness Night sweats 1 Occurrences starting 03/23/2024 [facility] Comment on above: 1 Occurrences starting 03/23/2024 [facility] Immunizations Immunization Date Immunization Notes Care Provider Eric magallanes 07-19-2023 COVID-19 vaccine, ag e 12+ yr, season (PFIZER-BIONTECH) Katheryn Lora APRN.GARDENER [employer]ORIST Work Phone: [facility] 07-19-2023 influenza, high dose seasonal, preservative-free Katheryn Lora APRN.GARDENER [employer]IST Work Phone: [facility] 07-19-2023 influenza virus vacc ine, unspecified formulation Emilia Jacob MD Work Phone: [facility] 08-18-2022 COVID-19 booster vaccine, age 12+ yr, bivalent (PFIZER-BIONTECH) Raman Mckeon APRN.GARDENER [employer]IST Work Phone: [facility] 07-23-2022 influenza, high dose seasonal, preservative-free Raman Mckeon APRN.GARDENER [employer]IST Work Phone: [facility] 07-23-2022 influenza virus vacc ine, unspecified formulation Emilia Jacob MD Work Phone: [facility] 02-26-2022 COVID-19 vaccine, ag e 12+ yr (PFIZER-BIONTQumulo - DIAZ TOP) Emilia Jacob MD Work Phone: [facility] 07-03-2021 influenza, high-dose , quadrivalent vaccine (FLUZONE HIGH DOSE QUADRIVALENT) Emilia Jacob MD Work Phone: [facility] 01-15-2021 tetanus toxoid, redu fabian diphtheria toxoid, and acellular pertussis vaccine, adsorbed Emilia Jacob MD Work Phone: [facility] 12-05-2020 COVID-19 vaccine, fu ll dose (MODERNA) Emilia Jacob MD Work Phone: [facility] Work Phone: 11-07-2020 COVID-19 vaccine, fu ll dose (MODERNA) Emilia Jacob MD Work Phone: [facility] Work Phone: 07-03-2020 influenza, high dose seasonal, preservative-free Emilia Jacob MD Work Phone: [facility] 09-12-2019 zoster vaccine recombinant Emilia Jacob MD Work Phone: [facility] 07-14-2019 influenza, high dose seasonal, preservative-free Emilia Jacob MD Work Phone: [facility] 07-08-2019 zoster vaccine recombinant Emilia Jacob MD Work Phone: [facility] 12-29-2017 pneumococcal polysaccharide vaccine, 23 valent Emilia Jacob MD Work Phone: [facility] 02-27-2017 pneumococcal conjuga te vaccine, 13 valent Emilia Jacob MD Work Phone: [facility] 10-05-2016 tetanus toxoid, redu fabian diphtheria toxoid, and acellular pertussis vaccine, adsorbed Emilia Jacob MD Work Phone: [facility] Work Phone: 09-11-2015 pneumococcal conjuga te vaccine, 13 valent Emilia Jacob MD Work Phone: [facility] 08-05-2015 influenza, seasonal, injectable Emilia Jacob MD Work Phone: [facility] 01-17-2014 tetanus and diphther ia toxoids, adsorbed, preservative free, for adult use (5 Lf of tetanus toxoid and 2 Lf of diphtheria toxoid) Emilia Jacob MD Work Phone: [facility] Work Phone: 07-04-2009 influenza virus vacc ine, unspecified formulation Emilia Jacob MD Work Phone: [facility] Work Phone: 06-23-2009 zoster vaccine, live Emilia baer MD Work Phone: [facility] Work Phone: 08-16-2008 influenza virus vacc ine, unspecified formulation Emilia Jacob MD Work Phone: [facility] Work Phone: 08-02-2007 influenza virus vacc ine, unspecified formulation Emilia Jacob MD Work Phone: [facility] Work Phone: 08-16-2006 influenza virus vacc ine, unspecified formulation Emilia Jacob MD Work Phone: [facility] 07-11-2004 influenza virus vacc ine, unspecified formulation Emilia Jacob MD Work Phone: [facility] Work Phone: 10-12-2000 pneumococcal polysaccharide vaccine, 23 valent Emilia Jacob MD Work Phone: [facility] Work Phone: 04-03-1999 diphtheria and tetan us toxoids, adsorbed for pediatric use Emilia Jacob MD Work Phone: [facility] Work Phone: Payers Date Payer Category Payer Self-pay [id number] 2021 Medicare AETNA MEDICARE A ETNA MEDICARE PPO [id number] 2021-Present [phone] [facility] [id number] [place] [address] PPO [id number] 2021 Medicare [id number] 2020 Medicare [id number] 2014 Private Health Insurance [id number] 1935 Unknown [id number] 2.16.840.1.273944.3.579.2.5 94 1935 Unknown [id number] 2.16.840.1.828186.3.579.2.5 94 Unknown [id number] 2.16.840.1.715061.3.579.2.4 62 Unknown [id number] 2.16.840.1.928670.3.579.2.4 62 Unknown [id number] 2.16.840.1.737244.3.579.2.4 62 Unknown [id number] 2.16.840.1.136341.3.579.2.4 62 Unknown [id number] 2.16.840.1.050549.3.579.2.4 62 Unknown [id number] 2.16.840.1.154806.3.579.2.4 62 Unknown [id number] 2.16.840.1.796497.3.579.2.4 62 Unknown [id number] 2.16.840.1.700547.3.579.2.4 62 Unknown [id number] 2.16.840.1.995423.3.579.2.4 62 Unknown [id number] 2.16.840.1.667780.3.579.2.4 62 Unknown [id number] 2.16.840.1.291755.3.579.2.4 62 Unknown [id number] 2.16.840.1.651296.3.579.2.4 62 Unknown [id number] 2.16.840.1.820307.3.579.2.4 62 Unknown [id number] 2.16.840.1.348066.3.579.2.4 62 Unknown [id number] 2.16.840.1.777703.3.579.2.4 62 Unknown [id number] 2.16.840.1.841773.3.579.2.4 62 Unknown [id number] 2.16.840.1.394519.3.579.2.4 62 Unknown [id number] 2.16.840.1.192677.3.579.2.4 62 Unknown [id number] 2.16.840.1.515246.3.579.2.4 62 Unknown [id number] 2.16.840.1.769855.3.579.2.4 62 Unknown [id number] 2.16.840.1.068717.3.579.2.4 62 Unknown [id number] 2.16.840.1.901785.3.579.2.4 62 Unknown [id number] 2.16.840.1.630599.3.579.2.4 62 Unknown [id number] 2.16.840.1.632740.3.579.2.4 62 Unknown [id number] 2.16.840.1.126217.3.579.2.4 62 Unknown [id number] 2.16.840.1.579032.3.579.2.4 62 Unknown [id number] 2.16.840.1.255218.3.579.2.4 62 Unknown [id number] 2.16.840.1.534918.3.579.2.4 62 Unknown [id number] 2.16.840.1.753364.3.579.2.4 62 Unknown [id number] 2.16.840.1.802928.3.579.2.4 62 Unknown [id number] 2.16.840.1.833730.3.579.2.4 62 Unknown [id number] 2.16.840.1.419334.3.579.2.4 62 Unknown [id number] 2.16.840.1.285513.3.579.2.4 62 Unknown [id number] 2.16.840.1.970655.3.579.2.4 62 Social History Date Type Detail Facility Start: 11-24-2017 End: 08-18-2022 Tobacco smoking status [facility] Ex-smoker [facility] Start: 10-11-1959 End: 10-11-1969 History of tobacco use Current smoker [facility] Start: 10-11-1959 End: 10-11-1969 History of tobacco use Cigarette Smoker [facility] Start: 11-20-2021 End: 03-23-2024 Alcohol intake Current drinker of alcohol (finding) [facility] Start: 1935 Sex Assigned At Not on file [facility] Start: 10-29-2021 End: 11-28-2021 Exposure to SARS-CoV-2 (event) Unable to assess [facility] Start: 01-13-2022 End: 06-02-2022 Exposure to SARS-CoV-2 (event) Not sure [facility] Start: 03-20-2022 End: 11-22-2023 Tobacco smoking status [facility] Unknown if ever smoked [facility] Start: 10-02-2020 None [facility] Start: 10-02-2020 Spouse/ Signif icant Other [facility] Start: 10-04-2020 Cigarettes [facility] Start: 1935 Sex Assigned At Male [facility] Start: 04-17-2022 End: 04-27-2022 Exposure to SARS-CoV-2 (event) Yes [facility] Start: 11-24-2017 End: 06-29-2023 Cigarettes smoked current (pack per day) - Reported 2 [facility] Start: 11-24-2017 End: 08-18-2022 Tobacco use and exposure Smokeless tobacco non-user [facility] Start: 02-08-2023 End: 06-29-2023 Tobacco use panel [facility] Adult Depression Screening Assessment 0 [facility] Medical Equipment Procedure Code Equipment Code Equipment Original Text Equipment Identifier Dates Total cholecystectomy with exploration of common bile duct DRESSING,SURGICEL 4x8 FDA Start: 03-24-2022 Total cholecystectomy with exploration of common bile duct Ligation clip, synthetic polymer, non-bioabsorbable [id number] FDA Start: 03-24-2022 Total cholecystectomy with exploration [...] Result Facility 01-07-2023 Functional status Standby Assist [facility] Work Phone: 03-25-2022 Functional status Ambulates;Bathroom Priv ilege [facility] Work Phone: Mental Status Date Assessment Result Facility 01-07-2023 Cognitive function Voice/Name [facility] Work Phone: 03-25-2022 Cognitive function Voice/Name [facility] Work Phone: Clinical Notes 08-27-2013 to 06-06-2024 Maci Hernandez MA - 06/06/2024 7:23 AM EDTTelephone Encounter - Carolyn Romero MA - 05/18/2024 9:43 AM EDTTelephone Encounter - Carolyn Romero MA - 05/18/2024 9:43 AM EDT Note Date & Type Note Facility 06-06-2024 Note HNO ID: [id number] Author: MACI HERNANDEZ MA Service: ? Author Type: Segmental Paver Installer Type: Progress Notes Filed: 06/06/2024 09:27 Note [...] Hernandez MA June 06, 2024 7:24 AM [facility] 06-06-2024 History of Present illness Narrative [...] 2024 7:24 AM documented in this encounter [facility] 06-06-2024 Note Patient Outreach (BRITTANIE TNHARRY) ZACHARY MCDERMOTT ([id number]) 1935 M Date Time Provider Department 06/06/24 MACI HERNANDEZ During your visit today, we recorded the following information about you: Maci Hernandez MA 06/06/2024 9:27 AM Signed POPULATION HEALTH NAVIGATION OUTREACH Action/FYI Becky Mccarthy [place] Discuss/Due for: Medicare Wellness, Dilated Retinal [...] [place] 09/15/2005 Date Reviewed: 03/23/2024 Reviewed by: Caremn Benítez LPN - Fully Assessed Reason for [...] (cerebrovascular accident) [ (more content not included)... [facility] 05-18-2024 Telephone encounter Note form sent to [facility] to send. Carolyn Romero MA [facility] 05-18-2024 Miscellaneous Notes form sent to [facility] rec to send. Carolyn Romero MA OK to send Emilia Jacob MD Office received a medical release form for pt to have records sent to [facility]. Ok to send? Carolyn Romero MA documented in this encounter [facility] 05-18-2024 Telephone encounter Note OK to send Emilia Jacob MD [facility] 05-18-2024 Telephone encounter Note Office received a medical release form for pt to have records sent to [facility] [place]. Ok to send? Carolyn Romero MA [facility] 04-27-2024 Telephone encounter Note Patient notified of recommendations, verbalizes understanding of instructions. Carmen Benítez LPN [facility] 04-27-2024 Miscellaneous Notes Patient notified of recommendations, verbalizes understanding of instructions. Carmen Benítez LPN Can you please call the patient's daughter back and let her know that both the diabetic medications that he is taking right now can both cause upset stomach. Digna Chakraborty APRN.CNP Daughter (Maeve) returns call with patient and [...] stomach went away). Requesting call back on [phone] cell phone as they are going on vacation. Jodee Rand RN The following approved medication requests have [...] him through that time. Pharmacy is [facility] in [place], please advise Patti as she is concerned that patient needs this medication and can not be without it. Patient has been identified by name and birthdate. Duration of symptoms: N/A Person calling: spouse: Patti Call patient Patti at home ok to leave message per patient Patti barber [phone] (home) [phone] (cell) Was an appointment scheduled: No Closing statement: Results or non-symptom based questions: Thank you for calling [facility], your call will be returned within the next business day. Rose Mary Casillas documented in this encounter [facility] 04-27-2024 Telephone encounter Note Can you please call the patient's daughter back and let her know that both the diabetic medications that he is taking right now can both cause upset stomach. Digna Chakraborty APRN.GARDENER FLORIST [facility] 04-27-2024 Telephone encounter Note Daughter (Maeve) returns [...] stomach went away). Requesting call back on [phone] cell phone as they are going on vacation. Jodee Rand RN [facility] 04-27-2024 Telephone encounter Note The following approved medication requests have been transmitted electronically. Requested Prescriptions Signed Prescriptions Disp Refills apixaban (ELIQUIS) 2.5 mg tab(s) 60 tablet 11 Sig: Take 1 tablet by mouth two times a day. Authorizing Provider: DIGNA CHAKRABORTY APRN.GARDENER FLORIST T [facility] 04-27-2024 Telephone encounter Note Mark has his [...] him through that time. Pharmacy is [facility] in [place], please advise Patti as she is concerned that patient needs this medication and can not be without it. Patient has been identified by name and birthdate. Duration of symptoms: N/A Person calling: spouse: Patti Call patient Patti at home ok to leave message per patient Patti barber [phone] (home) [phone] (cell) Was an appointment scheduled: No Closing statement: Results or non-symptom based questions: Thank you for calling [facility], your call will be returned within the next business day. Rose Mary Casillas T [facility] 03-27-2024 Telephone encounter Note Pts Patti called and is notified of providers results and instructions. She voices understanding. She states they have an appointment with oncology tomorrow. She states she doesn't think he is still having the urinary symptoms. They will call back in if he is. Lily Schaffer, RN [facility] 03-27-2024 Miscellaneous Notes Pts Patti called and [...] Digna Chakraborty APRN.CNP documented in this encounter [facility] 03-27-2024 Telephone encounter Note Can you please [...] with oncology. Thank you. 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 Keep scheduled appointments with Oncology Recommend keeping a food log with any associated symptoms May consider adding on Pepcid 20 mg at bedtime. Follow up pending test results. documented in this encounter[facility]06-[facility] History of Present illness Narrative* Digna Chakraborty [...] Diagnosed a year ago, following with Oncology, [facility]. Follow up every 6 months. Seeing oncology [...] APRN.AIDA This note was partially generated using Able Device voice recognition system. Note was reviewed for accuracy. There may be minor misspellings or grammar miscues with [employer] voice recognition. documented in this encounterMain [facility] Center06-13-2024 NoteHNO ID: [id number] Author: DIGNA CHAKRABORTY APRN.AIDA Service: ? Author Type: Nurse Practitioner Type: [...] Diagnosed a year ago, following with Oncology, [facility]. Follow up every 6 months. Seeing oncology [...] cold or heat i (more content not included)...[facility]05-16-2024 Telephone encounter Note* Telephone Encounter - Digna Chakraborty APRN.CNP - 02/24/2024 1:00 PM EDT The following approved medication requests have been transmitted electronically. Requested Prescriptions Pending Prescriptions Disp Refills FLUoxetine (PROZAC) 40 mg capsule 90 capsule 3 Sig: Take 1 capsule by mouth once daily. Digna Chakraborty APRN.CNP [facility]05-16-2024 Miscellaneous Notes* Telephone Encounter - Digna Chakraborty [...] you. Rose Mary Casillas. documented in this encounterMain [facility]05-15-2024 Telephone encounter Note * Telephone Encounter - Roes Mary Castro - 02/23/2024 11:58 AM EDT [...] Please advise. Thank you. Rose Mary Casillas. [facility]05-06-2024 Telephone encounter Note* Telephone Encounter - Raman Mckeon APRN.CNP - 02/14/2024 1:42 PM EDT The following approved medication requests have been transmitted electronically. Requested Prescriptions Pending Prescriptions Disp Refills pantoprazole DR (PROTONIX) 40 mg tablet 90 tablet 3 Sig: Take 1 tablet by mouth daily before breakfast. Take on empty stomach, 1/2 hr before meal. Raman Mckeon APRN.CNP [facility]05-06-2024 Miscellaneous Notes* Telephone Encounter - Raman Mckeon [...] Thank you. Cherelle Sahu. documented in this encounterMain [facility]05-06-2024 Telephone encounter Note * Telephone Encounter - [...] 06/29/2024 Please advise. Thank you. Cherelle Sahu. [facility]03-19-2024 Instructions* Patient Instructions* Heidy Singleton APRN.CNP - 12/28/2023 3:45 PM EDT Increase the ozempic dose to 0.5 mg weekly. Continue the same medication. Recheck in 6 months. documented in this encounterMain [facility] Medical Center03-19-2024 NoteHNO ID: [id number] Author: HEIDY SINGLETON APRN.CNP Service: ? Author [...] Heart: RRR without murmur, (more content not included)...[facility]03-19-2024 History of Present illness Narrative* Heidy Singleton APRN.GARDENER FLORIST - 12/28/2023 3:00 PM EDT This is [...] augmented (DIPROLENE) 0.05 % cream Dr. Bridger Lmoax. Apply as needed foreczema. multivitamin tablet Take [...] as needed for worsening/no improvement. Heidy Singleton APRN.GARDENER FLORIST documented in this encounterMain [facility] Center03-08-2024 Miscellaneous Notes* Telephone Encounter - Emilia Jacob [...] Thank you. Amy Ugalde. documented in this encounterMain [facility] Medical Center03-02-2024 History of Present illness Narrative* Emilia Jacob [...] Moderate Emilia Jacob MD documented in this encounterMain Campus Medical Center03-02-2024 NoteHNO ID: [id number] Author: EMILIA JACOB MD Service: ? Author [...] Cholesterol due on 0 (more content not included)...[facility]02-19-2024 Miscellaneous Notes* Telephone Encounter - Carolyn [...] spouse: Patti Call patient at: at home [phone] (home) [phone] (cell) Was an appointment scheduled: No Closing statement: Results or non-symptom based questions: Thank you for calling [facility], your call will be returned within the next business day. Cherelle Sahu documented in this encounterMain Campus Medical Center02-15-2024 Miscellaneous Notes* Telephone Encounter - Emilia Jacob [...] 12/28/2023 Please advise. Thank you. Rose Mary [facility] documented in this encounterMain Campus Medical Center02-09-2024 Instructions* Patient Instructions* Serina Garcia Ma - 11/19/2023 2:00 PM EST Pain medication for 1 week has been sent to [facility]. Can use Stool Softener to help withbowel movements since pain medication can cause constipation. Continue with Trulicity. documented in this encounterMain Campus Medical Center02-09-2024 History of Present illness Narrative* Emilia Jacob MD - 11/19/2023 1:40 PM EST Chief Complaint Patient presents with: Hospital Follow Up HPI Zachary Mcdermott is a 88 year old male who presents here today for a hospital follow up. Pt here today with for a [facility] ED follow up. Here today with his daughter, Maeve. Pt seen at [facility] ED on 11/16/23 after he fell on his rollator earlier that day. He started experiencingleft sided rib pain. Denies hitting his head or having LOC. X-rays were completed showing left 9th rib fx. Pt was d/c home with Brewster 5-325 mg #12. Pt reports that he's still having a lot of pain, described as sharp. Notes that if he turns the wrong way this makes the sharp pain occur. Overall pain described as a deep ache. Does have some pain with taking deep breathing, but the Brewster seems to help reduce this. Sleeping in his recliner. They are concerned due to having only 1 day left of pain medication and they don't think his pain is goingto improve significantly in 1 day. Currently using Brewster 5-325 mg 1 tab po every 6 [...] interprets and agrees. Patient will be given Brewster for pain. Return precautions are discussed. Discharged [...] S22.32XS - Rx for 1 week of Brewster today - Discussed using Stool Softener 3. Type 2 diabetes mellitus without complication, without long-term current use of insulin (HCC) - ICD9: 250.00, ICD10: E11.9 - discussed continuing Trulicity Follow up as needed. I agree with the Chief Complaint, ROS, and Past Histories independently gathered by the clinical network support and the remaining scribed note accurately describes my personal service to the patient. Medical Decision Making: Problems: Low: Acute, uncomplicated illness or injury Risk: Moderate: Drug management Medical Decision Making Level: 3 - Low Emilia Jacob MD The documentation for this note was completed by Serian Garcia Ma acting as scribe for Emilia Jacob MD. November 19, 2023 1:59 PM. Serina Garcia Ma documented in this encounterMain Campus Medical Center02-09-2024 NoteHNO ID: [id number] Author: EMILIA JACOB MD Service: ? Author Type: Physician Type: Progress Notes Filed: 11/19/2023 14:03 Note Text: Chief Complaint Patient presents with: Hospital Follow Up HPI Zachary Mcdermott is a 88 year old male who presents here today for a hospital follow up. Pt here today with for a [facility] ED follow up. Here today with his daughter, Mavee. Pt seen at [facility] ED on 11/16/23 after he fell on his rollator earlier that day. He started experiencing left sided rib pain. Denies hitting his head or having LOC. X-rays were completed showing left 9th rib fx. Pt was d/c home with Brewster 5-325 mg #12. Pt reports that he's still having a lot of pain, described as sharp. Notes that if he turns the wrong way this makes the sharp pain occur. Overall pain described as a deep ache. Does have some pain with taking deep breathing, but the Brewster seems to help reduce this. Sleeping in his recliner. They are concerned due to having only 1 day left of pain medication and they don't think his pain is going to improve significantly in 1 day. Currently using Brewster 5-325 mg 1 tab po every 6 [...] interprets and agrees. Patient will be given Brewster for pain. Return precautions are discussed. Discharged [...] needed for nausea/vomiting. latham (more content not included)...[facility]02-06-2024 Discharge summary Author Herson Acuña [facility] November 16, 2023 8:52pm Note Date/Time November 16, 2023 8 :52pm [facility] Medical Records Department [address] [place] [address] Emergency Department Summary 11/16/23 MR#: [id number] Acct: [id number] Name: ZACHARY MCDERMOTT Rep #:[id number] : [id number] 88 From: Herson Acuña DO [...] He took nothingfor pain prior to arrival. 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 Patient will be given Brewster for pain. Return precautions are discussed. Discharged [...] your Primary Care Provider. Call [facility] ([phone]) or report to the closest Emergency Room. Call 911 if necessary. 11/16/232051 <Electronically signed by Herson Acuña DO> Cosigner Signature (if applicable): CC: Dr. Emilia Jacob MD ~ Signed [facility] Work Phone: 1(139) 886-291012-07-2023 Miscellaneous Notes* Telephone Encounter - Emilia Jacob [...] notify patient. Petra Aldridge documented in this encounterMain Campus Medical Center11-20-2023 Miscellaneous Notes* Telephone Encounter - Raman Mckeon [...] notify patient. Shelby Xavier documented in this encounterMain Campus Medical Center11-10-2023 Miscellaneous Notes* Telephone Encounter - Olga Gimenez [...] ER. Katheryn Lora APRN.CNP documented in this encounterMain Campus Medical Center11-09-2023 Instructions* Patient Instructions* Katheryn Lora APRN.CNP - 08/19/2023 11:42 AM EST Covid, rsv, and influenza test ordered You will be notified in 12-24 hours, results available on [facility] Home isolation until results are back Rest, [...] breath, inability to swallow. documented in this encounterMain Campus Medical Center11-09-2023 NoteHNO ID: [id number] Author: Katheryn Lora APRN.CNP Service: ? Author Type: Nurse Practitioner Type: Progress Notes Filed: 08/19/2023 11:45 AM Note Text: Subjective The history is provided by the patient. No infantry senior sergeant was used. HPI Zachary Mcdermott is a [...] have confirmed and edited as necessary, the PSYCHIATRIC Review of Systems Constitutional: Positive for malaise/fatigue. [...] detail warranting prompt ER evaluation. Katheryn Lora APRN.[facility]11-[facility] History of Present illness Narrative* Katheryn Lora APRN.GARDENER FLORIST - 08/19/2023 11:31 AM EST Subjective The history is provided by the patient. No infantry senior sergeant was used. HPI Zachary Mcdermott is a [...] have confirmed and edited as necessary, the PSYCHIATRIC Review of Systems Constitutional: Positive for malaise/fatigue. [...] indetail warranting prompt ER evaluation. Katheryn Lora APRN.GARDENER FLORIST documented in this encounterMain Campus Medical Center09-19-2023 History of Present illness Narrative* Emilia Jacob [...] BID. Pt followed with Dr. Rick at [facility] due to a mass on his [...] an appt with Radiation Oncology tomorrow at [facility] to discuss. Past medical history, appointments, [...] Moderate Emilia Jacob MD documented in this encounterMain Campus Medical Center09-19-2023 NoteHNO ID: [id number] Author: Emilia Jacob MD Service: ? Author Type: Physician Type: Progress Notes Filed: 06/29/2023 6:03 PM Note Text: Chief Complaint Follow up HPI Zachary Mcdermott is a 87 year old male who presents here today for 6 month follow up. Went on river cruise in [facility], going on [employer] cruise next month. No bowel, Gi, or [...] BID. Pt followed with Dr. Rick at [facility] due to a mass on his [...] an appt with Radiation Oncology tomorrow at [facility] to discuss. Past medical history, appointments, [...] Lungs clear to ausc (more content not included)...[facility]08-28-2023 Miscellaneous Notes* Telephone Encounter - Carolyn Romero Ma - 06/07/2023 4:21 PM EDT Pt notified and voiced understanding. Carolyn Romero Ma * Telephone Encounter - [...] the pharmacy. Cherelle Sahu documented in this encounterMain Campus Medical Center06-14-2023 Miscellaneous Notes* Telephone Encounter - Digna Chakraborty [...] patients spouse and advise documented in this encounterMain Campus Medical Center04-27-2023 Miscellaneous Notes* Telephone Encounter - Radha Mackay [...] his back. He was seen at the [facility] ER. Patti would like to know what Mark can do for the pain. I do have him scheduled for an appointment for a follow up. 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 She described as a slow tumor. She wanted Dr. Jacob to be aware. documented in this encounterMain Campus Medical Center04-26-2023 Miscellaneous Notes* Telephone Encounter - Digna Chakraborty APRN.CNP - 02/03/2023 5:41 PM EDT The following approved medication requests have been transmitted electronically. Requested Prescriptions Pending Prescriptions Disp Refills FLUoxetine (PROZAC) 40 mg capsule 30 capsule 5 Sig: Take 1 capsule by mouth once daily. Digna Chakraborty APRN.CNP * Telephone Encounter - Maci Aldridge - 02/03/2023 4:36 PM EDT Pharmacy verified in [facility] Patient has been identified by name and [...] advise. Maci Robison Pss documented in this encounterMain Campus Medical Center03-20-2023 Miscellaneous Notes* Telephone Encounter - Raman Mckeon APRN.CNP - 12/28/2022 10:22 AM EDT The following approved medication requests have been transmitted electronically. Requested Prescriptions Pending Prescriptions Disp Refills pantoprazole DR (PROTONIX) 40 mg tablet 90 tablet 3 Sig: Take 1 tablet by mouth daily before breakfast. Take on empty stomach, 1/2 hr before meal. Raman Mckeon APRN.AIDA * Telephone Encounter - Nolvia Aldridge - [...] pharmacy. No need to notify patient. Nolvia Aldridge documented in this encounterMain Campus Medical Center03-02-2023 History of Present illness Narrative* Emilia Jacob [...] or urinary issues. Has seen Urologist at [facility] Dr. Cee. Taking Avodart 0.5 mg daily and Uroxatral 10 mg daily. Uses Viagra prn ED. CVA/Lipid: Tries to watch diet and exercise with walking at the [employer]. His friend will take him or their [...] 11/25/22. Is going to be seeingDr. Edgar Nguyen to evaluate the lump on [...] Past Histories independently gathered by the clinical network support and the remaining scribed note accurately describes [...] PM. Carolyn Romero Ma documented in this encounterMain Campus Medical Center01-30-2023 History of Present illness Narrative* Emilia Jacob [...] couple weeks ago before they left for [place] to see family. Thought he caught this from his neighbor at [facility]. Pt has nasal drainage that ranges from Clear-yellow to green phlegm from his nose. He does cough up clear colored sputum. Does get sob with activity, has to take breaks. No fever, but he feels warm inside. Pt has taken OTC Mucinex, Sosa-Muse, Robitussin and Tylenol with no real improvement. [...] Past Histories independently gathered by the clinical network support and the remaining scribed note accurately describes [...] PM. Serina Garcia Ma documented in this encounterMain Campus Medical Center01-30-2023 Miscellaneous Notes* Telephone Encounter - Emilia Jacob MD - 11/09/2022 12:46 PM EST OK to refill as ordered Emilia Jacob MD documented in this encounterMain Campus Medical Center08-23-2022 History of Present illness Narrative* Emilia Jacob [...] neuropathy symptoms. Has routine eye exams at [facility]. On current regimen of Metformin 500 [...] walker. [facility] an exercise [facility], but its not like the [facility]. On current regimen of Lipitor 80 mg [...] Past Histories independently gathered by the clinical network support and the remaining scribed note accurately describes [...] AM. Serina Garcia Ma documented in this encounterMain Campus Medical Center07-19-2022 Miscellaneous Notes* Telephone Encounter - Carolyn Romero Ma - 04/28/2022 5:11 PM EDT Pt notified. * Telephone Encounter - Emilia Jacob MD - 04/28/2022 5:07 PM EDT Please notify patient that his blood work looks good; his blood count is normal. His fatigue is most likely due to having had Covid, and should improve with time Emilia Jacob MD documented in this encounterMain [facility] Center07-[facility]22 Miscellaneous Notes* Telephone Encounter - Emilia Jacob MD - 04/27/2022 10:29 AM EDT Noted Emilia Jacob MD * Telephone Encounter - Lily Schaffer RN - 04/27/2022 8:45 AM EDT Pts called in reports they had been on a trip to [facility]. Pt had tested positive for Covid a [...] today at 300 pm. documented in this encounterMain Campus Medical Center06-30-2022 History of Present illness Narrative* Emilia Jacob [...] which included preparing to see the patient, [id number] patient care, completing clinical documentation, obtaining and/or reviewing separately obtained history, performing a medically appropriate examination and counseling and educating the patient/family/caregiver. Emilia Jacob MD documented in this encounterMain Campus Medical Center06-24-2022 History of Present illness Narrative* Isabell Capone MD - 04/03/2022 1:21 PM EDT FOLLOW UP VISIT NAME: Zachary Ellington [facility] NO.: [id number] DATE OF SERVICE: 04/03/2022 : 1935 REFERRING PHYSICIAN: Emilia Jacob MD Zachary is status post laparoscopic cholecystectomy done for acute cholecystitis presentation at [facility]. It was done on 03/24/2022. Pathology from [facility] - chronic cholecystitis and cholelithiasis) Patient [...] others. Isabell Capone MD documented in this encounterMain Campus Medical Center05-19-2022 Nurse Note* Carolyn Romero Ma - 02/26/2022 [...] Falls and Maintaining Balance documented in this encounterMain Campus Medical Center05-19-2022 History of Present illness Narrative* Carolyn Romero Ma - 02/26/2022 9:00 AM EDT Chief Complaint Patient presents with: F/U 3 Month HPI Zachary Mcdermott is a 86 year old male who presents here today for 3 month follow up. Here with . Both living in [facility] [facility]. Going to be going on a river cruise to [place], taking their kids and grand kids, in April. Has an advanced directive. Denies any bowel, Gi, or urinary issues. Is on both Uroxatral 10 mg daily and Avodart 0.[address] Cee, Urologist at [facility]. Uses Viagra as needed for ED [...] no neuropathy sx. Gets eye exams at [facility]. HTN: Denies checking BP at home, no chest pains, dizziness, or SOB. Follows with Contracting Officer, Dr. oMjica. Currently on Lisinopril 40 mg daily and [...] AM. Carolyn Romero Ma documented in this encounterMain Campus Medical Center04-15-2022 History of Present illness Narrative* Emilia Jacob MD - 01/23/2022 11:15 AM EDT Chief Complaint Patient presents with: Nausea: X 1 week HPI Zachary Mdcermott is a 86 year old male who [...] Moderate Emilia Jacob MD documented in this encounterMain Campus Medical Center04-15-2022 Miscellaneous Notes* Telephone Encounter - Emilia Jacob [...] Pt does not know cause. Protocols used: [id number] documented in this encounterMain Campus Medical Center04-07-2022 Miscellaneous Notes* Telephone Encounter - Emilia Jacob [...] advise. Carmen Benítez LPN documented in this encounterMain Campus Medical Center02-22-2022 Miscellaneous Notes* Telephone Encounter - Emilia Jacob [...] patient. 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 [facility] Work Phone: 1(636) 700-781112-23-2020 Evaluation note* Diagnosis Onset Date Resolution Status Chondrosarcoma of ribs chron ic Essential (primary) hypertension chronic 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 PAF (paroxysmal atrial fibrillation) 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 Nonspecific abnormal results of liver function s [...] of this encounter (statuses as of 01/06/2022) [facility] History of Past illness Narrative* Problem Noted [...] 04/14/2013 Overview: April 2009 -- diagnosed at [facility] [place]; felt contracted on trip to [facility].. Nonspecific abnormal results of liver function s [...] of this encounter (statuses as of 01/15/2022) [facility] of Past illness Narrative* Problem Noted [...] 04/14/2013 Overview: April 2009 -- diagnosed at [facility] [place]; felt contracted on trip to [facility]. Nonspecific abnormal results of liver function s [...] of this encounter (statuses as of 01/23/2022) [facility] of Past illness Narrative* Problem Noted [...] 04/14/2013 Overview: April 2009 -- diagnosed at [facility] [place]; felt contracted on trip to [facility]. Nonspecific abnormal results of liver function s [...] of this encounter (statuses as of 01/23/2022) [facility] of Past illness Narrative* Problem Noted [...] 04/14/2013 Overview: April 2009 -- diagnosed at [facility] [place]; felt contracted on trip to [facility]. Nonspecific abnormal results of liver function s [...] of this encounter (statuses as of 02/26/2022) [facility] of Past illness Narrative* Problem Noted [...] 04/14/2013 Overview: April 2009 -- diagnosed at [facility] [place]; felt contracted on trip to [facility]. Nonspecific abnormal results of liver function s [...] 676 (admit for stress test)-seen by Jerome Meo 01-11-09: 88% APMHR, 10 METS reported transient [...] of this encounter (statuses as of 04/03/2022) [facility] of Past illness Narrative* Problem Noted [...] 04/14/2013 Overview: April 2009 -- diagnosed at [facility] [place]; felt contracted on trip to [facility].S. Nonspecific abnormal results of liver function s torito 05/07/2009 04/14/2013 Overview: ALT 36 in 8- Abn findings-lung field 05/03/2009 04/14/20 13 Overview: CT 7- showed incidental finding of two, 5 mm, [...] of this encounter (statuses as of 04/09/2022) [facility] of [facility] Narrative* Problem Noted [...] 04/14/2013 Overview: April 2009 -- diagnosed at [facility] [place]; felt contracted on trip to [facility].. Nonspecific abnormal results of liver function s [...] of this encounter (statuses as of 04/27/2022) [facility] of [facility] Narrative* Problem Noted [...] 04/14/2013 Overview: April 2009 -- diagnosed at [facility] [place]; felt contracted on trip to [facility].. Nonspecific abnormal results of liver function s [...] of this encounter (statuses as of 04/28/2022) [facility] Narrative* Problem Noted [...] 04/14/2013 Overview: April 2009 -- diagnosed at [facility] [place]; felt contracted on trip to [facility] Nonspecific abnormal results of liver function s [...] of this encounter (statuses as of 06/02/2022) [facility] Narrative* Problem Noted [...] 04/14/2013 Overview: April 2009 -- diagnosed at [facility] [place]; felt contracted on trip to [facility]. Nonspecific abnormal results of liver function s [...] of this encounter (statuses as of 11/09/2022) [facility] Narrative* Problem Noted [...] 04/14/2013 Overview: April 2009 -- diagnosed at [facility] [place]; felt contracted on trip to [facility].. Nonspecific abnormal results of liver function s [...] of this encounter (statuses as of 11/10/2022) [facility] of [facility] Narrative* Problem Noted [...] 04/14/2013 Overview: April 2009 -- diagnosed at [facility] [place]; felt contracted on trip to [facility].S. Nonspecific abnormal results of liver function s [...] in 04-18: ACD LDH 370 in 04-18 Arelen colored urine with a TBR in serum [...] of this encounter (statuses as of 12/10/2022) [facility] Narrative* Problem Noted [...] 04/14/2013 Overview: April 2009 -- diagnosed at [facility] [place]; felt contracted on trip to [facility]. Nonspecific abnormal results of liver function s [...] of this encounter (statuses as of 12/28/2022) [facility] Narrative* Problem Noted [...] 04/14/2013 Overview: April 2009 -- diagnosed at [facility] [place]; felt contracted on trip to [facility]. Nonspecific abnormal results of liver function s [...] of this encounter (statuses as of 02/05/2023) [facility] Narrative* Problem Noted [...] 04/14/2013 Overview: April 2009 -- diagnosed at [facility] [place]; felt contracted on trip to [facility].S. Nonspecific abnormal results of liver function s torito 05/07/2009 04/14/2013 Overview: ALT 36 in 8- Abn findings-lung field 05/03/2009 04/14/20 13 Overview: [...] of this encounter (statuses as of 02/17/2023) [facility] Narrative* Problem Noted [...] 04/14/2013 Overview: April 2009 -- diagnosed at [facility] [place]; felt contracted on trip to [facility]. Nonspecific abnormal results of liver function s [...] of this encounter (statuses as of 03/24/2023) [facility] Narrative* Problem Noted [...] 04/14/2013 Overview: April 2009 -- diagnosed at [facility] [place]; felt contracted on trip to [facility]. Nonspecific abnormal results of liver function study [...] of this encounter (statuses as of 06/08/2023) [facility] Narrative* Problem Noted [...] 04/14/2013 Overview: April 2009 -- diagnosed at [facility] [place]; felt contracted on trip to [facility] Nonspecific abnormal results of liver function study [...] of this encounter (statuses as of 06/30/2023) [facility] Narrative* Problem Noted [...] 04/14/2013 Overview: April 2009 -- diagnosed at [facility] [place]; felt contracted on trip to [facility]. Nonspecific abnormal results of liver function study [...] of this encounter (statuses as of 08/19/2023) [facility] Narrative* Problem Noted [...] 04/14/2013 Overview: April 2009 -- diagnosed at [facility] [place]; felt contracted on trip to [facility]. Nonspecific abnormal results of liver function study [...] of this encounter (statuses as of 08/20/2023) [facility] Narrative* Problem Noted [...] 04/14/2013 Overview: April 2009 -- diagnosed at [facility] [place]; felt contracted on trip to [facility]. Nonspecific abnormal results of liver function study [...] of this encounter (statuses as of 08/30/2023) [facility] Narrative* Problem Noted [...] 04/14/2013 Overview: April 2009 -- diagnosed at [facility] [place]; felt contracted on trip to [facility]. Nonspecific abnormal results of liver function study [...] of this encounter (statuses as of 09/17/2023) [facility] Narrative* Problem Noted [...] 04/14/2013 Overview: April 2009 -- diagnosed at [facility] [place]; felt contracted on trip to [facility]. Nonspecific abnormal results of liver function study [...] of this encounter (statuses as of 11/19/2023) [facility] Narrative* Problem Noted [...] 04/14/2013 Overview: April 2009 -- diagnosed at [facility] [place]; felt contracted on trip to [facility]. Nonspecific abnormal results of liver function study [...] of this encounter (statuses as of 11/25/2023) [facility] Narrative* Problem Noted [...] 04/14/2013 Overview: April 2009 -- diagnosed at [facility] [place]; felt contracted on trip to [facility]. Nonspecific abnormal results of liver function study [...] of this encounter (statuses as of 11/29/2023) [facility] Narrative* Problem Noted [...] 04/14/2013 Overview: April 2009 -- diagnosed at [facility] [place]; felt contracted on trip to [facility]. Nonspecific abnormal results of liver function study [...] of this encounter (statuses as of 12/11/2023) [facility] Narrative* Problem Noted [...] 04/14/2013 Overview: April 2009 -- diagnosed at [facility] [place]; felt contracted on trip to [facility]. Nonspecific abnormal results of liver function study [...] of this encounter (statuses as of 12/17/2023) [facility] Narrative* Problem Noted [...] 04/14/2013 Overview: April 2009 -- diagnosed at [facility] [place]; felt contracted on trip to [facility] Nonspecific abnormal results of liver function study [...] of this encounter (statuses as of 12/29/2023) [facility]+Reason for visit Narrative* Chief Complaint REVIEW CT SCAN 6 MO - NO LABS EVAL ANY DISEASE PROGRESSION REVIEW CT SCANW Fall, 6 M FU E-ORDER Reason for Visit 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 HOLT (dyspnea on exertion) Essential (primary) hypertension History of ischemic right 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 stroke PAF (paroxysmal atrial fibrillation) [facility] Work Phone: Evaluation note* Diagnosis Essential hypertension, benign Type 2 diabetes mellitus without complication, without long-term current use of insulin (HCC) documented in this encounter [facility] [place] [facility]* Diagnosis Type 2 diabetes mellitus without complication, without long-term current use of insulin (HCC) documented in this encounter [facility] [place] [facility]* Diagnosis Nausea- Primary Nausea alone Essential hypertension, benign Type 2 diabetes mellitus without complication, without long-term current use of insulin (HCC) History of CVA (cerebrovascular accident) Transient ischemic attack (TIA), and cerebral infarction without residual deficits Depression, unspecified depression type documented in this encounter [facility] [place] [facility]* Diagnosis Cerebrovascular accident (CVA), unspecified mechanism (HCC)- Primary Pure hypercholesterolemia Essential hypertension, benign Type 2 diabetes mellitus without complication, without long-term current use of insulin (HCC) 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) Need for COVID-19 vaccine documented in this encounter [facility] [place] [facility]* Diagnosis Onset Date Resolution Status Pancreatitis acute [facility] Work Phone: Evaluation note* Diagnosis Onset Date Resolution Status Cholelithiasis acute Pancreatitis acute Status post laparoscopic cholecystectomy acute [facility] Work Phone: Evaluation note* Diagnosis Status post laparoscopic cholecystectomy- Primary Other postprocedural status documented in this encounter [facility] [place] [facility]* Diagnosis Essential hypertension, benign- Primary Type 2 diabetes mellitus without complication, without long-term current use of insulin (HCC) 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) Depression, unspecified depression type documented in this encounter [facility] [place] [facility]* Diagnosis Type 2 diabetes mellitus without [...] esophagitis Esophageal reflux documented in this encounter [facility] [place] [facility]* Diagnosis Cough, unspecified type- Primary Chest congestion Other symptoms involving respiratory system and chest Sinus congestion Other diseases of nasal cavity and sinuses [facility] [place] [facility]* Diagnosis Type 2 diabetes mellitus without complication, without long-term current use of insulin (HCC)- Primary Essential hypertension, benign Pure hypercholesterolemia History of CVA (cerebrovascular accident) Transient ischemic attack (TIA), and cerebral infarction without residual deficits 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) documented in this encounter [facility] [place] [facility]* Diagnosis GERD without esophagitis Esophageal reflux [facility] [place] [facility]* Diagnosis 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) Fatigue, unspecified type documented in this encounter [facility] [place] [facility]* Diagnosis 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)- Primary documented in this encounter [facility] note* Diagnosis Type 2 diabetes mellitus without complication, without long-term current use of insulin (HCC) documented in this encounter [facility] note* Diagnosis Type 2 diabetes mellitus without complication, without long-term current use of insulin (HCC)- Primary Pure hypercholesterolemia Essential hypertension, benign History of CVA (cerebrovascular accident) Transient ischemic attack (TIA), and cerebral infarction without residual deficits documented in this encounter [facility] [place] [facility]* Diagnosis URI with cough and congestion- Primary [facility] encounter [facility]* Diagnosis 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) documented in this encounter [facility] [place] [facility]* Diagnosis Onset Date Resolution Status 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 [facility] Work Phone: Evaluation note* Diagnosis Onset Date Resolution Status 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 [facility] Work Phone: Evaluation note* Diagnosis Closed fracture of one rib of left side, sequela- Primary Type 2 diabetes mellitus without complication, without long-term current use of insulin (HCC) 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, site unspecified Atrial fibrillation, unspecified type (HCC) 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) documented in this encounter [facility] [place] [facility]* Diagnosis Onset Date Resolution Status 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 HOLT (dyspnea on exertion) [facility] [place] Essential (primary) hypertension chronic 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 PAF (paroxysmal atrial fibrillation) [facility] Work Phone: Evaluation note* Diagnosis Type 2 diabetes mellitus without complication, without long-term current use of insulin (HCC)- Primary documented in this encounter [facility] [place] [facility]* Diagnosis Cough, unspecified type- Primary Essential hypertension, benign Atrial fibrillation, unspecified type (HCC) Type 2 diabetes mellitus without complication, without long-term current use of insulin (HCC) 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, 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) [facility] [place] [facility]* Diagnosis 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) Essential hypertension, benign documented in this encounter [facility] [place] [facility]* Diagnosis Type 2 diabetes mellitus without complication, without long-term current use of insulin (HCC)- Primary 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, site unspecified Pure hypercholesterolemia 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) Atrial fibrillation, unspecified type (HCC) Essential hypertension, benign Hyperlipidemia, unspecified hyperlipidemia type documented in this encounter [facility] [place] [facility]* Diagnosis GERD without esophagitis Esophageal reflux [facility] [place] [facility]* Diagnosis 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) Fatigue, unspecified type documented in this encounter [facility] [place] [facility]* Diagnosis 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) Fatigue, unspecified type documented in this encounter [facility] [place] [facility]* Diagnosis Atrial fibrillation, unspecified type (HCC)- Primary [facility] Summary Purpose Family History No Family History [...] FoundDocuments on File Type Date Recorded Patient Director Index Expl anation Advance Directive(s) 04/19/2009 8:56 PM Advance Directive(s) 11/26/2006 12:00 AM Advance Directive Response Recorded Date/ Time Living Will Yes March 20, 2022 8:00pm Power of Commercial Credit Head Yes March 20 8:00pm Advance Directive Response Recorded Date/ Time Name of Medical Power of Commercial Credit Head Patti Mcdermott March 21, 2022 1:16am Living Will Yes March 21, 2022 1:16am Power of Commercial Credit Head Yes March 21 1:16am Documents on File Type Date Recorded Patient Director Index Expl anation Advance Directive(s) 04/19/2009 8:56 PM Advance Directive(s) 11/26/2006 Advance Directive Response Recorded Date/ Time Living Will Yes March 21, 2022 12:16am Power of Commercial Credit Head Yes March 21 12:16am Advance Directive Response Recorded Date/ Time Living Will Yes March 21, 2022 1:16am Power of Commercial Credit Head Yes March 21 1:16am Advance Directive Response Recorded Date/ Time Living Will Yes January 29, 2023 10:34am Power of Commercial Credit Head Yes January 29 10:34am Advance Directive Response Recorded Date/ Time Living Will Yes January 29, 2023 9:34am Power of Commercial Credit Head Yes January 29 9:34am Documents on File Type Date Recorded Patient Director Index Expl anation Advance Directive(s) 04/19/2009 8:56 PM Advance Directive(s) 11/26/2006 Chief Complaint and Reason for Visit Chief Complaint ACUTE PANCREATITIS Reason for Visit Pancreatitis Chief Complaint ACUTE PANCREATITIS ACUTE PANCREATITIS ACUTE PANCREATITIS ACUTE PANCREATITIS ACUTE PANCREATITIS Reason for Visit Cholelithiasis Pancreatitis Status post laparoscopic cholecystectomy Chief Complaint 1 Y FU EORDERS DYSPNEA Reason for Visit Essential (primary) hypertension History of ischemic right 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 stroke PAF (paroxysmal atrial fibrillation) Chief Complaint 1 Y FU EORDERS DYSPNEA Amb Documentation RIGHT CHEST MASS Localized swelling, mass and lump, trunk Reason for Visit Essential (primary) hypertension History of ischemic right 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 stroke PAF (paroxysmal atrial fibrillation) Chief Complaint 1 Y FU EORDERS DYSPNEA Amb Documentation RIGHT CHEST MASS Localized swelling, mass and lump, trunk NEW PT - RIGHT CHEST MASS CHEST WALL MASS/STAT LABS Reason for Visit Essential (primary) hypertension History of ischemic right 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 stroke PAF (paroxysmal atrial fibrillation) Mass of right chest wall Chief Complaint 3 MO - NO LABS 6 M FU 3 MONTH F/U CHEST WALL MASS Malignant neoplasm of ribs, sternum and clavicle REVIEW CT SCAN Reason for Visit Chondrosarcoma of ri bs Essential (primary) hypertension History of ischemic right 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 stroke PAF (paroxysmal atrial fibrillation) Chondrosarcoma of [...] complication, without long-term current use of insulin ([facility]) Emilia Jacob MD [address] [place] [address] Referral ID Status Reason Start Date Expiration Date Visits Re quested Visits Authorized [id number] Closed 1 1 Additional Source Comments (unrecognized sect ion and content) No Status Records FoundNo Status Records FoundNo Status Records Found INFORMATION SOURCE (unrecogn ized section and content) DATE CREATED AUTHOR 11/09/2021 [facility] DATE CREATED AUTHOR AUTHOR'S ORGANIZ ATION 06/08/2024 [facility] DATE CREATED AUTHOR AUTHOR'S ORGANIZ ATION 06/13/2025 [facility] Source Comments (unrecognize d section and content) In the event this informatio n is protected by the Federal Confidentiality of Alcohol and Drug Abuse Patient Records regulations: The Federal rules restrict any use of the information to criminally investigate or prosecute any alcohol or drug abuse patient.[facility] the event this information is protected by the Federal Confidentiality of Alcohol and Drug Abuse Patient Records regulations: The Federal rules restrict any use of the information to criminally investigate or prosecute any alcohol or drug abuse patient.[facility] CenterIn the event this information is protected by the Federal Confidentiality of Alcohol and Drug Abuse Patient Records regulations: The Federal rules restrict any use of the information to criminally investigate or prosecute any alcohol or drug abuse patient.[facility] CenterIn the event this information is protected by the Federal Confidentiality of Alcohol and Drug Abuse Patient Records regulations: The Federal rules restrict any use of the information to criminally investigate or prosecute any alcohol or drug abuse patient.[facility] CenterIn the event this information is protected by the Federal Confidentiality of Alcohol and Drug Abuse Patient Records regulations: The Federal rules restrict any use of the information to criminally investigate or prosecute any alcohol or drug abuse patient.[facility] CenterIn the event this information is protected by the Federal Confidentiality of Alcohol and Drug Abuse Patient Records regulations: The Federal rules restrict any use of the information to criminally investigate or prosecute any alcohol or drug abuse patient.[facility] CenterIn the event this information is protected by the Federal Confidentiality of Alcohol and Drug Abuse Patient Records regulations: The Federal rules restrict any use of the information to criminally investigate or prosecute any alcohol or drug abuse patient.[facility] CenterIn the event this information is protected by the Federal Confidentiality of Alcohol and Drug Abuse Patient Records regulations: The Federal rules restrict any use of the information to criminally investigate or prosecute any alcohol or drug abuse patient.[facility] CenterIn the event this information is protected by the Federal Confidentiality of Alcohol and Drug Abuse Patient Records regulations: The Federal rules restrict any use of the information to criminally investigate or prosecute any alcohol or drug abuse patient.[facility] CenterIn the event this information is protected by the Federal Confidentiality of Alcohol and Drug Abuse Patient Records regulations: The Federal rules restrict any use of the information to criminally investigate or prosecute any alcohol or drug abuse patient.[facility] CenterIn the event this information is protected by the Federal Confidentiality of Alcohol and Drug Abuse Patient Records regulations: The Federal rules restrict any use of the information to criminally investigate or prosecute any alcohol or drug abuse patient.[facility] CenterIn the event this information is protected by the Federal Confidentiality of Alcohol and Drug Abuse Patient Records regulations: The Federal rules restrict any use of the information to criminally investigate or prosecute any alcohol or drug abuse patient.[facility] CenterIn the event this information is protected by the Federal Confidentiality of Alcohol and Drug Abuse Patient Records regulations: The Federal rules restrict any use of the information to criminally investigate or prosecute any alcohol or drug abuse patient.[facility] CenterIn the event this information is protected by the Federal Confidentiality of Alcohol and Drug Abuse Patient Records regulations: The Federal rules restrict any use of the information to criminally investigate or prosecute any alcohol or drug abuse patient.[facility] CenterIn the event this information is protected by the Federal Confidentiality of Alcohol and Drug Abuse Patient Records regulations: The Federal rules restrict any use of the information to criminally investigate or prosecute any alcohol or drug abuse patient.[facility] CenterIn the event this information is protected by the Federal Confidentiality of Alcohol and Drug Abuse Patient Records regulations: The Federal rules restrict any use of the information to criminally investigate or prosecute any alcohol or drug abuse patient.[facility] CenterIn the event this information is protected by the Federal Confidentiality of Alcohol and Drug Abuse Patient Records regulations: The Federal rules restrict any use of the information to criminally investigate or prosecute any alcohol or drug abuse patient.[facility] CenterIn the event this information is protected by the Federal Confidentiality of Alcohol and Drug Abuse Patient Records regulations: The Federal rules restrict any use of the information to criminally investigate or prosecute any alcohol or drug abuse patient.[facility] CenterIn the event this information is protected by the Federal Confidentiality of Alcohol and Drug Abuse Patient Records regulations: The Federal rules restrict any use of the information to criminally investigate or prosecute any alcohol or drug abuse patient.[facility] CenterIn the event this information is protected by the Federal Confidentiality of Alcohol and Drug Abuse Patient Records regulations: The Federal rules restrict any use of the information to criminally investigate or prosecute any alcohol or drug abuse patient.[facility] CenterIn the event this information is protected by the Federal Confidentiality of Alcohol and Drug Abuse Patient Records regulations: The Federal rules restrict any use of the information to criminally investigate or prosecute any alcohol or drug abuse patient.[facility] CenterIn the event this information is protected by the Federal Confidentiality of Alcohol and Drug Abuse Patient Records regulations: The Federal rules restrict any use of the information to criminally investigate or prosecute any alcohol or drug abuse patient.[facility] CenterIn the event this information is protected by the Federal Confidentiality of Alcohol and Drug Abuse Patient Records regulations: The Federal rules restrict any use of the information to criminally investigate or prosecute any alcohol or drug abuse patient.[facility] CenterIn the event this information is protected by the Federal Confidentiality of Alcohol and Drug Abuse Patient Records regulations: The Federal rules restrict any use of the information to criminally investigate or prosecute any alcohol or drug abuse patient.[facility] CenterIn the event this information is protected by the Federal Confidentiality of Alcohol and Drug Abuse Patient Records regulations: The Federal rules restrict any use of the information to criminally investigate or prosecute any alcohol or drug abuse patient.[facility] CenterIn the event this information is protected by the Federal Confidentiality of Alcohol and Drug Abuse Patient Records regulations: The Federal rules restrict any use of the information to criminally investigate or prosecute any alcohol or drug abuse patient.[facility] CenterIn the event this information is protected by the Federal Confidentiality of Alcohol and Drug Abuse Patient Records regulations: The Federal rules restrict any use of the information to criminally investigate or prosecute any alcohol or drug abuse patient.[facility] CenterIn the event this information is protected by the Federal Confidentiality of Alcohol and Drug Abuse Patient Records regulations: The Federal rules restrict any use of the information to criminally investigate or prosecute any alcohol or drug abuse patient.[facility] CenterIn the event this information is protected by the Federal Confidentiality of Alcohol and Drug Abuse Patient Records regulations: The Federal rules restrict any use of the information to criminally investigate or prosecute any alcohol or drug abuse patient.[facility] CenterIn the event this information is protected by the Federal Confidentiality of Alcohol and Drug Abuse Patient Records regulations: The Federal rules restrict any use of the information to criminally investigate or prosecute any alcohol or drug abuse patient.[facility] CenterIn the event this information is protected by the Federal Confidentiality of Alcohol and Drug Abuse Patient Records regulations: The Federal rules restrict any use of the information to criminally investigate or prosecute any alcohol or drug abuse patient.[facility] CenterIn the event this information is protected by the Federal Confidentiality of Alcohol and Drug Abuse Patient Records regulations: The Federal rules restrict any use of the information to criminally investigate or prosecute any alcohol or drug abuse patient.[facility] CenterIn the event this information is protected by the Federal Confidentiality of Alcohol and Drug Abuse Patient Records regulations: The Federal rules restrict any use of the information to criminally investigate or prosecute any alcohol or drug abuse patient.[facility] CenterIn the event this information is protected by the Federal Confidentiality of Alcohol and Drug Abuse Patient Records regulations: The Federal rules restrict any use of the information to criminally investigate or prosecute any alcohol or drug abuse patient.[facility] CenterIn the event this information is protected by the Federal Confidentiality of Alcohol and Drug Abuse Patient Records regulations: The Federal rules restrict any use of the information to criminally investigate or prosecute any alcohol or drug abuse patient.[facility] CenterIn the event this information is protected by the Federal Confidentiality of Alcohol and Drug Abuse Patient Records regulations: The Federal rules restrict any use of the information to criminally investigate or prosecute any alcohol or drug abuse patient.[facility] CenterIn the event this information is protected by the Federal Confidentiality of Alcohol and Drug Abuse Patient Records regulations: The Federal rules restrict any use of the information to criminally investigate or prosecute any alcohol or drug abuse patient.[facility] Reason for Visit (unrecogniz ed section and [...] Release Of Medical Records Adult geriatr ics [facility] Reason Onset Date Comments Population Health Navigation Outreach 06/06/2024 Becky Mccarthy [facility] Teams (unrecognized sec tion and content) Cte Teacher Relationship Specialty Start Date End Date Emilia Jacob MD [address] [place] [address] PCP - General Family Practice 02/25/12 Cte Teacher Relationship Specialty Start Date End Date Emilia Jacob MD [address] [facility] [place] [address] PCP - General Family Practice 02/25/12 Cte Teacher Relationship Specialty Start Date End Date Emilia Jacob MD [address] [facility] [place] [address] PCP - General Family Practice 02/25/12 Cte Teacher Relationship Specialty Start Date End Date Emilia Jacob MD [address] [facility] [place] [address] PCP - General Family Practice 02/25/12 Cte Teacher Relationship Specialty Start Date End Date Emilia Jacob MD [address] [facility] [place] [address] PCP - General Family Practice 02/25/12 Cte Teacher Relationship Specialty Start Date End Date Emilia Jacob MD [address] [facility] [place] [address] PCP - General Family Practice 02/25/12 Cte Teacher Relationship Specialty Start Date End Date Emilia Jacob MD [address] [facility] [place] [address] PCP - General Family Practice 02/25/12 Cte Teacher Relationship Specialty Start Date End Date Emilia Jacob MD [address] [facility] [place] [address] PCP - General Family Practice 02/25/12 Cte Teacher Relationship Specialty Start Date End Date Emilia Jacob MD [address] [facility] [place] [address] PCP - General Family Medicine 02/25/12 Cte Teacher Relationship Specialty Start Date End Date Emilia Jacob MD [address] [facility] [place] [address] PCP - General Family Medicine 02/25/12 Team [...] MD Attending Provider, Referring Pro vider Active Cte Teacher Relationship Specialty Start Date End Date Emilia Jacob MD [address] [place] [address] PCP - [facility] Medicine 02/25/12 Team Status: Active Member Role Status Dates Dr. Emilia Jacob MD Primary Care Provider Active Javier Mathews ROLLER MAKER, ROLLER MAKER-C Attending Provider Active Team Status: Inactive Member Role Status Dates Dr. Emilia Jacob MD Primary Care Provider Active Dr. Jarrell Mojica MD Attending Provider Active Team Status: Inactive Member Role Status Dates Dr. Emilia Jacob MD Primary Care Provider Active Javier Mathews ROLLER MAKER, ROLLER MAKER-C Attending Provider, Referring Pro vider Active Cte Teacher Relationship Specialty Start Date End Date Emilia Jacob MD [address] [place] [address] PCP - [facility] Family Medicine 02/25/12 Team Status: Inactive Member [...] MD Attending Provider, Referrin g Provider Active Cte Teacher Relationship Specialty Start Date End Date Emilia Jacob MD [address] [place] [address] PCP - General Family Medicine 02/25/12 Cte Teacher Relationship Specialty Start Date End Date Emilia Jacob MD [address] [place] [address] PCP - General Family Medicine 02/25/12 Cte Teacher Relationship Specialty Start Date End Date Emilia Jacob MD [address] [place] [address] PCP - General Family Medicine 02/25/12 Cte Teacher Relationship Specialty Start Date End Date Emilia Jacob MD [address] [place] [address] PCP - General Family Medicine 02/25/12 Team Status: Inactive Member Role Status Dates Dr. Emilia Jacob MD Primary Care Provider, Referr ing Provider Active Caitlin KAN, PA Attending Provider Active Team Status: Inactive Member Role Status Dates Dr. Emilia Jacob MD Primary Care Provider, Referr ing Provider Active Dr. Andres Shipley DO Attending Provider Active Team Status: Inactive Member Role Status Dates Dr. Emilia Jacob MD Primary Care Provider Active Dr. Andres Shipley DO Attending Provider, Referring P humberto Active Cte Teacher Relationship Specialty Start Date End Date Emilia Jacob MD [address] [place] [address] PCP - General Family Medicine 02/25/12 Cte Teacher Relationship Specialty Start Date End Date Emilia Jacob MD [address] [place] [address] PCP - General Family Medicine 02/25/12 Team Status: Inactive Member Role Status Dates Dr. Emilia Jacob MD Primary Care Provider Active Dr. Herson Acuña DO Emergency Provider Active Cte Teacher Relationship Specialty Start Date End Date Emilia Jacob MD [address] [facility] [place] [place] [address] PCP - General Family Medicine 02/25/12 Cte Teacher Relationship Specialty Start Date End Date Emilia Jacob MD [address] [place] [address] PCP - General Family Medicine 02/25/12 Team Status: Inactive Member Role Status Dates Dr. Emilia Jacob MD Primary Care Provider Active Dr. Herson Acuña DO Attending Provider, Emergency Provider Active Team Status: Inactive Member Role Status Dates Dr. Emilia Jacob MD Primary Care Provider Active Caitlin Thomas PA, PA Attending Provider, Referr ing Provider Active Cte Teacher Relationship Specialty Start Date End Date Emilia Jacob MD [address] [place] [address] PCP - General Family Medicine 02/25/12 Cte Teacher Relationship Specialty Start Date End Date Emilia Jacob MD [address] [place] [address] PCP - General Family Medicine 02/25/12 Cte Teacher Relationship Specialty Start Date End Date Emilia Jacob MD [address] [place] [address] PCP - General Family Medicine 02/25/12 Cte Teacher Relationship Specialty Start Date End Date Emilia Jacob MD [address] [place] [address] PCP - General Family Medicine 02/25/12 Cte Teacher Relationship Specialty Start Date End Date Emilia Jacob MD [address] [place] [address] PCP - General Family Medicine 02/25/12 Cte Teacher Relationship Specialty Start Date End Date Emilia Jacob MD [address] [place] [address] PCP - General Family Medicine 02/25/12 Cte Teacher Relationship Specialty Start Date End Date Emilia Jacob MD [address] [place], [place] [id number] PCP - General Family Medicine 02/25/12 Cte Teacher Relationship Specialty Start Date End Date Sandoval Montalvo Teofilo [address] [address] PCP - General Gerontology 06/06/24 Goals (unrecognized [...] BE BASED ON THE PRIMARY CLINICAL RECORDS. [employer] [facility]. provides no warranty or guarantee of the accuracy or completeness of information in this document.
[2025-06-17 20:22] VITALS: BP 180/110; PULSE 98; RESP 18; TEMP 36.6; O2SAT 100
--- NOTE | 2025-06-17 22:17 | EX.ED.DYSGE1 ---
HPI History of Present Illness Chief Complaint: Nosebleed Narrative Narrative: Patient is a 89-year-old male presenting to the emergency [place]. Patient has a past medical history as below. He is on Eliquis for previous stroke. Patient states that this morning he he developed a left-sided nosebleed, it did stop shortly after it started. States that then this evening he blew his nose and he developed a left-sided nosebleed again. states that she put a cottonball in his nose and came here for evaluation. Patient denies any lightheadedness or dizziness. Feels well otherwise. No history of frequent nosebleeds. [facility] Medical History Memory deficit Hyperlipidemia MDD (major depressive disorder) Diabetes Chondrosarcoma of ribs Chronic eczema PAF (paroxysmal atrial fibrillation) Cholelithiasis Wears glasses Wears hearing aid Cancer Bruising Walker as ambulation aid Ambulates with cane Easy bruising High cholesterol Former smoker Hypertension Loss of peripheral visual field BPH (benign prostatic hyperplasia) Basal cell carcinoma Cryptogenic stroke History of ischemic right [employer] stroke (10/02/20) Essential (primary) hypertension Left arm weakness Facial droop Dysarthria Acute ischemic stroke Chronic back pain Home Medications ?Medication ?Instructions ?Recorded ?Last Taken ?Type alfuzosin 10 mg tablet,extended 10 mg PO DAILY prostate 10/02/20 03/20/22 History release 24 hr lisinopril 40 mg tablet 40 mg PO DAILY BP 03/15/21 03/20/22 History dutasteride 0.5 mg capsule 0.5 mg PO DAILY 03/18/21 03/20/22 History multivitamin 1 tab PO DAILY 03/18/21 03/20/22 History apixaban 2.5 mg tablet (Eliquis) 2.5 mg PO BID Please reduce dose 05/18/23 Unknown Rx to 2.5 mg twice daily #60 tabs latanoprost 0.005 % eye drops 1 drp ophthalmic (eye) DAILY 03/28/24 Unknown History melatonin 3 mg capsule 3 mg PO HS PRN 03/28/24 Unknown History levothyroxine 25 mcg tablet mcg PO DAILY 11/08/24 Unknown History insulin glargine U-300 conc 300 55 unit subcut BID 12/29/24 Unknown History unit/mL (3 mL) subcutaneous pen (TouMuz[place] Max U-300 SoloStar) ofloxacin 0.3 % eye drops 1 drp ophthalmic (eye) 4X/DAY 12/29/24 Unknown History citalopram 20 mg tablet 20 mg PO DAILY #90 tabs 04/03/25 Unknown Rx bupropion HCl 150 mg 24 hr tablet, 150 mg PO QAM #30 tabs 06/12/25 Unknown Rx extended release (Wellbutrin XL) Allergy/AdvReac Type Severity Reaction Status Date / Time lactic acid (From Lac-Hydrin) Allergy Rash Verified 06/17/25 19:06 Penicillins Allergy Unknown Verified 06/17/25 19:06 Family History Sister Ovarian cancer Diabetes old age onset Mother Basal cell carcinoma Father CHF (congestive heart failure) Diabetes old age onset Grandfather Diabetes old age onset Surgical History History of shoulder surgery Status post laparoscopic cholecystectomy H/O basal cell carcinoma excision Social History household members: spouse current occupational exposures/hazards: No Smoking Status: Former smoker pack-years: 20 Tobacco: How many years used: 20 how long ago did patient quit smokin years ago; quit sometime in the s alcohol intake: current alcohol intake frequency: holidays/special occasions only substance use type: does not use caffeine: Yes (Occasionally, drinks mostly caffeine free beverages) ROS ROS ED ROS Narrative see HPI EXAM Physical Exam Narrative Exam Narrative: Vital signs: Reviewed General: Alert and oriented x 3. No acute distress HEENT: Head is normocephalic and atraumatic, sinuses nontender, pupils equal round and reactive. Cotton removed from left nares. No active bleeding on exam. No bleeding from right nares. No blood in posterior oropharynx. Neck: Supple without lymphadenopathy nontender Cardiovascular: Regular rate and rhythm, no murmurs. No rubs or gallops. Normal S1 and S2 Respiratory: Clear to auscultation bilaterally. No wheezes, rales, rhonchi Abdominal: Soft and nontender. Normal bowel sounds. No guarding or rebound. Nonsurgical abdomen Extremities: No tenderness. No bruising. Normal range of motion. Normal sensation. Skin: No rash or redness. The rest of the physical exam is unremarkable Const Vital Signs: 06/17/25 19:06 06/17/25 20:22 Temperature 97.8 F 97.8 F Temperature Source Temporal Pulse Rate 98 98 Respiratory Rate 18 18 Blood Pressure 180/110 H 180/110 H Blood Pressure Mean 133 133 Pulse Ox 100 100 Oxygen Delivery Method Room Air MDM MDM MDM Narrative Medical decision making narrative: Patient is a 89-year-old male presenting to the emergency department for epistaxis. Patient was seen and examined. Vitals are stable. Patient resting in bed comfortably in no acute distress. Cotton was removed from left nares. Asked patient to blow nose here to see if any rebleeding occurred. It did not. On exam there is no active bleeding from either nares. There is no blood in the posterior oropharynx noted. Discussed management with patient and if this occurs again at home. Patient discharged from the Emergency Department. I do not feel that the patient's evaluation reveals any acute reason for admission at this time. I instructed them to either follow-up with their primary care physician or promptly return to the Emergency Department for reevaluation should symptoms worsen or new symptoms develop. I explained what symptoms would indicate the need to return to the emergency department. Shared decision making was used. The patient voiced understanding of the treatment plan and is agreeable with it. Clinical impression Epistaxis Discharge Plan Triage Chief Complaint: Nosebleed ED Provider: Marlen Samaniego Dx/Rx/DC Orders Clinical Impression: Epistaxis Instructions: ED Epistaxis (Adult) Prescriptions: No Action lisinopril 40 mg tablet 40 mg PO DAILY dutasteride 0.5 mg capsule 0.5 mg PO DAILY Patient Comments: take 1 capsule by mouth once daily multivitamin Tablet 1 tab PO DAILY Eliquis 2.5 mg tablet 2.5 mg PO BID Qty: 60 11RF latanoprost 0.005 % drops 1 drp ophthalmic (eye) DAILY melatonin 3 mg capsule 3 mg PO HS PRN levothyroxine 25 mcg tablet PO DAILY insulin glargine U-300 conc [Toujeo Max U-300 SoloStar] 300 unit/mL (3 mL) insulin pen 55 unit subcut BID ofloxacin 0.3 % drops 1 drp ophthalmic (eye) 4X/DAY citalopram 20 mg tablet 20 mg PO DAILY Qty: 90 1RF bupropion HCl [Wellbutrin XL] 150 mg tablet extended release 24 hr 150 mg PO QAM Qty: 30 1RF alfuzosin 10 MG tablet extended release 24 hr 10 mg PO DAILY Primary Care Provider: Sandoval Montalvo Chi Referrals: Sandoval Montalvo Chi, MD [Primary Care Provider] - 2 Days Activity Restrictions/Additional Instructions: Do not stop taking your Eliquis. If you develop another nosebleed, pack your nose as you did before and pinch the tip of your nose. Your evaluation in the Emergency Department did not reveal any acute reason for admission. However, I want to emphasize that you may be early in the course of a disease process or illness even if it is not present. For this reason you should follow-up within 24 hours for reevaluation with either your primary care physician or if necessary back here in the Emergency Department. You should return to the Emergency Department immediately if your symptoms worsen or new symptoms develop. Print Language: Italian Disposition Disposition: Home, Self Care Discharge Date/Time: 06/17/25 20:28
== END 2025-06-17 20:28 | disposition home or self-care (01) ==
PROVIDERS: Emergency Provider Student in an Organized Health Care Education/Training Program; PCP Family Medicine Geriatric Medicine; Visit Provider Student in an Organized Health Care Education/Training Program
DX: R04.0 Epistaxis (principal); I48.0 Paroxysmal atrial fibrillation; E11.9 Type 2 diabetes mellitus without complications; Z79.4 Long term (current) use of insulin; M54.9 Dorsalgia, unspecified; G89.29 Other chronic pain; I10 Essential (primary) hypertension; E78.00 Pure hypercholesterolemia, unspecified; N40.0 Benign prostatic hyperplasia without lower urinary tract symptoms; Z79.01 Long term (current) use of anticoagulants; Z79.899 Other long term (current) drug therapy; Z79.890 Hormone replacement therapy; Z87.891 Personal history of nicotine dependence; Z86.73 Personal history of transient ischemic attack (TIA), and cerebral infarction without residual deficits
CPT/HCPCS: 99282